=== PATIENT | male | born 1950 | race Caucasian/White ===

== ENCOUNTER 2022-08-09 15:42 | Emergency (ER) | payer MEDICARE, SELFPAY ==
[2022-08-09 15:43] VITALS: BP 143/69; PULSE 80; RESP 16; TEMP 36.8; O2SAT 95
--- NOTE | 2022-08-09 15:46 | ED.RN ---
Pt states he has at least 10 allergies, unsure of what they are.
--- NOTE | 2022-08-09 16:13 | EKG12_ITS ---
Test Reason : DIZZINESS Blood Pressure : / mmHG Vent. Rate : 079 BPM Atrial Rate : 079 BPM P-R Int : 178 ms QRS Dur : 076 ms QT Int : 372 ms P-R-T Axes : 039 027 055 degrees QTc Int : 426 ms Normal sinus rhythm Low voltage QRS Borderline ECG Confirmed by FIONA MENDIETA, JIA ([id number]), editorial writer DONNIE GOLDSTEIN ([id number]) on 08/11/2022 1:21:50 PM Referred By: Jakub Bowman Confirmed By:JIA JAIMES MD
[2022-08-09 16:30] VITALS: BMI 36.5
--- NOTE | 2022-08-09 16:32 | RAD_ITS ---
EXAM: XR CHEST, 1 VIEW CLINICAL INDICATION: Dizziness TECHNIQUE: Frontal view of the chest. COMPARISON: No relevant prior studies available. FINDINGS: LUNGS AND PLEURAL SPACES: Unremarkable. No consolidation or edema. No pneumothorax. No effusion. HEART: Unremarkable. Cardiac silhouette not enlarged. MEDIASTINUM: Central airways and mediastinal contour are unremarkable. BONES/JOINTS: Unremarkable. SOFT TISSUES: Unremarkable. RAD/Chest 1 View (Portable) IMPRESSION: No radiographic evidence of acute cardiopulmonary disease. Electronically Signed: Keenan Carney MD at 16:57 EDT ,
[2022-08-09 16:36] LABS: Absolute Lymphocyte Count 0.86 X10^3/uL (0.83-4.51); Absolute Neutrophil Count 3.8 X10^3/uL (2.0-7.7); Basophil# 0.02 X10^3/uL; Basophil% 0.4 % (0-1); Eosinophil# 0.12 X10^3/uL; Eosinophils% 2.3 % (0-5); Hematocrit 38.6 % (40-54); Hemoglobin 13.1 g/dL (13.0-16.5); Lymphocyte # 0.86 X10^3/ul (0.83-4.51); Lymphocyte % 16.5 % (19-41); Mean Corp Hgb Conc 33.9 g/dL (32-36); Mean Corpuscular Hgb 28.6 pg (27.0-32.0); Mean Corpuscular Volume 84.3 fL (80-94); Mean Platelet Vol. 8.6 fl (6.2-12.0); Monocyte# 0.44 X10^3/uL; Monocyte% 8.4 % (0-10); NRBC Flagged by Analyzer 0 % (0-5); Neutrophil # 3.77 X10^3/uL (2.7-7.7); Neutrophil % 72.2 % (47-70); Platelet Count 205 K/mm3 (150-450); RBC Distribution Width CV 13.9 % (11.6-14.6); RBC Distribution Width SD 42.5 fl (35.1-43.9); Red Blood Count 4.58 M/mm3 (4.6-6.2); White Blood Count 5.2 K/mm3 (4.4-11.0)
[2022-08-09 16:37] LABS: POSITIVE COUNT NO; POSITIVE DIFFERENTIAL NO; POSITIVE MORPHOLOGY NO
[2022-08-09 16:55] VITALS: BP 141/78; BP 142/75; BP 144/76; PULSE 79; PULSE 82; PULSE 84
[2022-08-09 16:57] LABS: D-Dimer Quantitative (DVT/PE) 0.56 FEU/ug/m (0.27-0.49)
[2022-08-09 17:08] LABS: Mucous, Urine 0 SEEN /hpf (<or=2+); Squamous Epithelial Cells - UA 0 SEEN /hpf (0-5)
[2022-08-09 17:10] LABS: Color, Urine Yellow (Yellow); Glucose, Dipstick 250 mg/dl (Normal); Ketone-Dipstick Negative (Negative); Leukocyte Esterase-Dipstick 100 /ul (Negative); Nitrite-Dipstick Negative (Negative); Occult Blood-Urine 10 /ul (Negative); Protein-Dipstick 15 mg/dl (Negative); Specific Gravity, Urine 1.025 (1.002-1.030); Urine Bilirubin Dipstick Negative (Negative); Urine Clarity Sl. Cloudy (Clear); Urine Urobilinogen Normal (Normal)
[2022-08-09 17:11] LABS: ALB/GLOB Ratio 1.2 RATIO (0.9-2.4); AST(SGOT) 13 U/L (15-37); Alanine Aminotransfer ALT/SGPT < 6 U/L (16-61); Albumin, Serum 3.7 g/dL (3.2-5.0); Alkaline Phosphatase 82 U/L (45-117); Anion Gap 6 (5-15); BUN 26 mg/dL (7-18); BUN/Creat Ratio 20.5 RATIO (10-20); Calcium,Total 9.2 mg/dL (8.5-10.1); Chloride 107 mmol/L (98-107); Creatinine, Serum 1.27 mg/dL (0.70-1.30); EST Glomerular Filtration Rate 59 mL/min (>60); Est Glom Filt Rate - Afr Amer 72 mL/min (>60); Estimated Creatinine Clearance 57.71 ml/min; Globulin 3.2 g/dL (2.2-4.2); Glucose 245 mg/dL (74-106); Potassium 4.2 mmol/L (3.5-5.1); Protein, Total 6.9 g/dL (6.4-8.2); Sodium Level 140 mmol/L (136-145); Troponin-I HS (w/2H Reflex) 7 pg/mL (3.0-78.0)
--- NOTE | 2022-08-09 17:24 | EDS_ITS ---
HPI History of Present Illness Chief Complaint: Dizziness Informant: patient and spouse/S.O. Onset/Context/Timing Onset: Today Context: Sudden Onset Timing: Continuous Quality: Tired, fatigued Location: Generalized Worsened by: Nothing Relieved by: Nothing Narrative Narrative: Patient presents with dizziness that began today. Patient states he was driving and he started to feel hot. Patient states he then became tired. Patient states he feels tired all over. Patient states his blood sugar at home was 300 prior to getting in his car. Patient admits to some nausea and urinary frequency. Patient denies any vomiting. Patient admits to some rhinorrhea and a mild headache. Patient also has a history of Parkinson's disease. Patient denies any fevers or chills. [facility] Medical History Diabetes Hyperlipemia Parkinson disease Allergy/AdvReac Type Severity Reaction Status Date / Time sulfamethoxazole Allergy Rash Verified 08/09/22 15:46 [From Bactrim] trimethoprim [From Bactrim] Allergy Rash Verified 08/09/22 15:46 Social History Smoking Status: Never smoker ROS [facility] ED Constitutional Constitutional ED: Denies chills or fever(s) Eyes Eyes: Denies blurry vision or change in vision ENT ENT ED: Reports rhinorrhea; Denies sore throat Cardiovascular Cardiovascular: Denies chest pain or palpitations Respiratory/Chest Respiratory/Chest: Denies cough or dyspnea Gastrointestinal Gastrointestinal: Reports nausea; Denies vomiting Genitourinary Genitourinary ED: Reports urinary frequency; Denies dysuria or hematuria Musculoskeletal Musculoskeletal: Reports back pain; Denies neck pain Integumentary Denies abscess or rash Neurologic Neurologic: Reports headache(s) and weakness Allergic/Immunologic Allergic/Immunologic ED: Denies mouth swelling or urticaria EXAM Physical Exam Const Vital Signs: 08/09/22 15:43 08/09/22 16:15 08/09/22 16:55 Temperature 98.2 F Temperature Source Temporal Pulse Rate 80 Pulse Rate [Lying] 84 Pulse Rate [Sitting (for 1 minute prior to obtaining)] 79 Pulse Rate [Standing (for 1 minute prior to obtaining)] 82 Respiratory Rate 16 Respiratory Effort Normal Non-Labored Respiratory Pattern Normal Blood Pressure 143/69 H Blood Pressure [Lying] 142/75 H Blood Pressure [Sitting (for 1 minute prior to obtaining)] 144/76 H Blood Pressure [Standing (for 1 minute prior to obtaining)] 141/78 H Blood Pressure Mean 93 Blood Pressure Mean [Lying] 97 Blood Pressure Mean [Sitting (for 1 minute prior to obtaining)] 98 Blood Pressure Mean [Standing (for 1 minute prior to obtaining)] 99 Pulse Ox 95 Oxygen Delivery Method Room Air 08/09/22 17:43 08/09/22 19:11 Temperature Temperature Source Pulse Rate 75 77 Pulse Rate [Lying] Pulse Rate [Sitting (for 1 minute prior to obtaining)] Pulse Rate [Standing (for 1 minute prior to obtaining)] Respiratory Rate 16 16 Respiratory Effort Respiratory Pattern Blood Pressure 139/73 H 132/71 H Blood Pressure [Lying] Blood Pressure [Sitting (for 1 minute prior to obtaining)] Blood Pressure [Standing (for 1 minute prior to obtaining)] Blood Pressure Mean 95 91 Blood Pressure Mean [Lying] Blood Pressure Mean [Sitting (for 1 minute prior to obtaining)] Blood Pressure Mean [Standing (for 1 minute prior to obtaining)] Pulse Ox 96 95 Oxygen Delivery Method Room Air Room Air Positive well nourished, well developed and obese General Appearance ED: well developed and NAD Nutritional Appearance: obese HEENT Reports moist mucous membranes Neck supple and no JVD Resp normal respiratory effort and clear to auscultation bilaterally Cardio regular rate and regular rhythm GI normal to inspection, nondistended, normoactive bowel sounds and non-tender Palpation: soft Extremity Extremity Narrative: There is some mild erythema over the anterior lower legs, slightly worse on the right. General Extremety ED: Negative for edema or tenderness General Extremity: Negative for edema Neuro oriented x3, CN's II-XII intact bilaterally and no sensory deficits noted Sensorium / Orientation: alert Motor Exam: strength 5/5 throughout Psych mental status grossly normal MDM MDM MDM Narrative Medical decision making narrative: Differential diagnosis includes cardiac dysrhythmia, cardiac ischemia, pulmonary embolism, electrolyte abnormality, dehydration, diabetic ketoacidosis, hyperosmolar hyperglycemic state, and urinary tract infection. EKG will be obtained to assess for cardiac dysrhythmia and cardiac ischemia. Chest x-ray will be obtained to assess for pneumonia. CBC will be obtained to assess for leukocytosis and anemia. D-dimer will be obtained to assess for pulmonary embolism. Comprehensive metabolic profile will be obtained to assess for electrolyte abnormality, renal function, and hepatic function. High-sensitivity troponin will be obtained to assess for cardiac ischemia. 2-hour repeat high- sensitivity troponin will be obtained to assess for ongoing cardiac ischemia. Urinalysis will be obtained to assess for urinary tract infection and hematuria. Serum acetone will be obtained to assess for diabetic ketoacidosis. Lab Data Attestation: I reviewed the patient's lab results. Lab results narrative: CBC was reviewed and was within normal limits. Comprehensive metabolic profile was reviewed. Glucose was 245. The remainder was essentially within normal limits. High-sensitivity troponin was reviewed and was normal at 7. D-dimer was reviewed and was normal for her age at 0.56. Urinalysis was reviewed and there is no evidence of urinary tract infection or hematuria. Serum acetone was reviewed and was negative. 2-hour repeat high-sensitivity troponin was reviewed and was normal at 9. Labs: Laboratory Results - last 24 hr 08/09/22 08/09/22 08/09/22 16:25 16:25 16:25 WBC 5.2 RBC 4.58 L Hgb 13.1 Hct 38.6 L MCV 84.3 MCH 28.6 MCHC 33.9 RDW Std Deviation 42.5 RDW Coeff of Yoana 13.9 Plt Count 205 MPV 8.6 Immature Gran % (Auto) 0.200 Neut % (Auto) 72.2 H Lymph % (Auto) 16.5 L [place] % (Auto) 8.4 Eos % (Auto) 2.3 Baso % (Auto) 0.4 Absolute Neuts (auto) 3.8 Absolute Lymphs (auto) 0.86 Nucleated RBC % 0 D-Dimer Quant (PE/DVT) 0.56 H* Sodium 140 Potassium 4.2 Chloride 107 Carbon Dioxide 27.0 Anion Gap 6 BUN 26 H Creatinine 1.27 Estim Creat Clear Calc 57.71 Est GFR (MDRD) Af Amer 72 Est GFR (MDRD) Non-Af 59 L BUN/Creatinine Ratio 20.5 H Glucose 245 H Calcium 9.2 Total Bilirubin 0.50 AST 13 L ALT < 6 L Alkaline Phosphatase 82 Troponin I High Sens 7 Total Protein 6.9 Albumin 3.7 Globulin 3.2 Albumin/Globulin Ratio 1.2 Urine Color Urine Clarity Urine pH Ur Specific [place] Urine Protein Urine Glucose (UA) Urine Ketones Urine Occult Blood Urine Nitrite Urine Bilirubin Urine Urobilinogen Ur Leukocyte Esterase Urine RBC Urine WBC Ur Squamous Epith Cells Urine Bacteria Urine Mucus Acetone Level 08/09/22 08/09/22 08/09/22 16:25 17:05 18:37 WBC RBC Hgb Hct MCV MCH MCHC RDW Std Deviation RDW Coeff of [place] Plt Count MPV Immature Gran % (Auto) Neut % (Auto) Lymph % (Auto) [place] % (Auto) Eos % (Auto) Baso % (Auto) Absolute Neuts (auto) Absolute Lymphs (auto) Nucleated RBC % D-Dimer Quant (PE/DVT) Sodium Potassium Chloride Carbon Dioxide Anion Gap BUN Creatinine Estim Creat Clear Calc Est GFR (MDRD) Af Amer Est GFR (MDRD) Non-Af BUN/Creatinine Ratio Glucose Calcium Total Bilirubin AST ALT Alkaline Phosphatase Troponin I High Sens 9 Total Protein Albumin Globulin Albumin/Globulin Ratio Urine Color Yellow Urine Clarity Sl. Cloudy Urine pH 5.0 Ur Specific [place] 1.025 Urine Protein 15 H Urine Glucose (UA) 250 H Urine Ketones Negative Urine Occult Blood 10 H Urine Nitrite Negative Urine Bilirubin Negative Urine Urobilinogen Normal Ur Leukocyte Esterase 100 H Urine RBC 0-5 SEEN Urine WBC 0-5 SEEN Ur Squamous Epith Cells 0 SEEN Urine Bacteria RARE Urine Mucus 0 SEEN Acetone Level NEGATIVE Radiography Diagnostic Testing: Clinical Impression(s) from Imaging Studies Chest X-Ray 08/09/22 16:32 IMPRESSION: No radiographic evidence of acute cardiopulmonary disease. Electronically Signed: Keenan Carney MD at 16:57 EDT Reading Location ID and State: [facility] / [place] , Service support , Portable 1 view chest x-ray was obtained. On my independent interpretation, lung miller are clear. There is normal cardiac silhouette. Bony thorax is normal. There is no acute process noted. Radiologist also interpreted the x- ray and agrees. EKG Initial EKG: Attestation: I personally reviewed and interpreted this EKG as follows: Interpretation: Sinus Rhythm (79) and No Acute Injury Pattern Comments: EKG was obtained. On my independent interpretation, it showed a normal sinus rhythm with a rate of 79. MO interval, QRS interval, and QTc intervals were all normal. [place] was normal. There are no acute ST or T wave changes. Prior EKG tracings: not available for review Prior: No Prior Treatment and Re-Evaluation :: Patient was advised of his findings. Patient was ambulated here in the emergency department. Patient had no further dizziness and was able to ambulate with his cane without any difficulty. Patient will be discharged home. Patient was instructed to follow-up with his primary care physician in 5 to 7 days. Patient was instructed to return if worse in any way. Patient understood and was agreeable with the plan. All questions were answered. Discharge Plan Triage Chief Complaint: Dizziness ED Provider: Jakub Bowman Dx/Rx/DC Orders Clinical Impression: Dizziness, nonspecific Instructions: ED Dizziness, Uncertain Cause Primary Care Provider: Care Physician,No Primary Referrals: Melita Velasquez MD [Med Staff - [employer]] - 5-7 Days Care Physician,No Primary [Primary Care Provider] - Disposition Disposition: Home, Self Care
[2022-08-09 17:25] LABS: White Blood Cells 0-5 SEEN /hpf (0-5)
[2022-08-09 17:26] LABS: Red Blood Cells-Urine 0-5 SEEN /hpf (0-5)
[2022-08-09 17:27] LABS: Bacteria RARE /hpf (None Seen)
[2022-08-09 17:43] VITALS: BP 139/73; PULSE 75; RESP 16; O2SAT 96
[2022-08-09 18:33] LABS: Reflex Troponin-HS? (from REC) Y
[2022-08-09 18:59] LABS: Troponin-I HS 9 pg/mL (3.0-78.0)
[2022-08-09 19:11] VITALS: BP 132/71; PULSE 77; RESP 16; O2SAT 95
[2022-08-09 19:21] VITALS: O2SAT 96
[2022-08-09 19:59] VITALS: BP 135/80; PULSE 82; RESP 15; O2SAT 96
== END 2022-08-09 20:08 | disposition home or self-care (01) ==
PROVIDERS: Emergency Provider Emergency Medicine; Referring Provider Emergency Medicine; Visit Provider Emergency Medicine
DX: R42 Dizziness and giddiness (principal); E66.9 Obesity, unspecified
CPT/HCPCS: 71045; 80053; 81001; 82009; 84484; 85025; 85379; 93005; 96360; 99285; J7040; A4216

== ENCOUNTER 2022-10-28 07:53 | Outpatient (RCR) | payer MEDICARE, SELFPAY ==
[2022-10-28 08:05] VITALS: BP 167/90; PULSE 104; RESP 16; TEMP 36.1; BMI 36.1
--- NOTE | 2022-10-28 09:29 | PCM.WC.HP ---
History of Present Illness Date of Service: 10/28/22 Chief Complaint: Venous stasis ulceration of the right pretibial area History of Wound: This is an obese 72-year-old diabetic male who presented with a venous stasis ulceration on the right pretibial area. The ulceration has been present for approximately 2 to 3 weeks. However, the patient has had similar occurrences in the past. He has had previous episodes whereby blisters have spontaneously occurred on his distal lower extremities, subsequently erupting into small open wounds. The patient suffers from Parkinson's disease. He is obese, with a BMI of 36.1. His activity is very limited based upon his Parkinson's disease and prior lower extremity fractures. 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 He sleeps in a recliner, with his lower extremities in a dependent position. He ambulates in very limited fashion using a cane. He denies a history of thrombophlebitis. [facility] Medical History Dependent edema Diabetes Hyperlipemia Hyperpigmentation Inactivity Left leg swelling Leg edema, left Leg edema, right Lipodermatosclerosis Parkinson disease Peripheral neuropathy Right leg swelling Venous hypertension, chronic, with ulcer and inflammation Home Medications betamethasone valerate 0.1 % topical cream 1 applic topical BID PRN 09/01/22 [History Last Taken Unknown] calcium carbonate 600 mg-vitamin D3 10 mcg (400 unit) chewable tablet (Calcium 600 with Vitamin D3) tab PO 09/01/22 [History Last Taken Unknown] carbidopa 25 mg-levodopa 100 mg tablet 1 tab PO TID 09/01/22 [History Last Taken Unknown] carvedilol 6.25 mg tablet 6.25 mg PO BID 09/01/22 [History Last Taken Unknown] clotrimazole 1 % topical ointment 1 applic topical BID 09/01/22 [History Last Taken Unknown] donepezil 5 mg tablet mg PO 09/01/22 [History Last Taken Unknown] flash glucose sensor (FreeStyle Aliya 2 Sensor kit) 09/01/22 [History Last Taken Unknown] flash glucose sensor (FreeStyle Aliya 2 Sensor kit) 09/01/22 [History Last Taken Unknown] furosemide 20 mg tablet 20 mg PO BID 09/01/22 [History Last Taken Unknown] icosapent ethyl 1 gram capsule (Vascepa) 2 g PO BID 09/01/22 [History Last Taken Unknown] lanolin-mineral oil lotion (Eucerin Original lotion) 1 applic topical QD-BID PRN 09/01/22 [History Last Taken Unknown] loratadine 10 mg tablet 10 mg PO DAILY 09/01/22 [History Last Taken Unknown] metformin 500 mg tablet,extended release 24 hr 500 mg PO BID 09/01/22 [History Last Taken Unknown] mirabegron 50 mg tablet,extended release 24 hr (Myrbetriq) 50 mg PO DAILY 09/01/22 [History Last Taken Unknown] nitroglycerin 0.4 mg sublingual tablet 0.4 mg sublingual Q5M PRN 09/01/22 [History Last Taken Unknown] polyethylene glycol 3350 17 gram/dose oral powder (Miralax) 4 g PO DAILY PRN 09/01/22 [History Last Taken Unknown] pramipexole 0.75 mg tablet 0.75 mg PO QHS 09/01/22 [History Last Taken Unknown] psyllium husk 0.52 gram capsule (Fiber-Caps (psyllium husk)) 0.52 g PO DAILY 09/01/22 [History Last Taken Unknown] rosuvastatin 20 mg tablet 20 mg PO DAILY 09/01/22 [History Last Taken Unknown] venlafaxine 75 mg capsule,extended release 24 hr 75 mg PO BID 09/01/22 [History Last Taken Unknown] insulin lispro protamine-lispro 100 unit/mL (50-50) subcutaneous susp (Humalog Mix 50-50 Insuln U-100) 33 unit (0.33 mL) subcut TIDWMEAL #29.7 mL 09/15/22 [Rx Last Taken Unknown] Allergy/AdvReac Type Severity Reaction Status Date / Time sulfamethoxazole Allergy Rash Verified 10/23/22 11:43 [From Bactrim] trimethoprim [From Bactrim] Allergy Rash Verified 10/23/22 11:43 Surgical History History of right inguinal hernia repair History of total right knee replacement Social History Smoking Status: Never smoker Vital Signs Vital Signs Vital Signs: 10/28/22 08:05 Temperature 96.9 F L Temperature Source Temporal Pulse Rate 104 H Respiratory Rate 16 Blood Pressure 167/90 H Blood Pressure Mean 115 Blood Pressure Source Monitor Blood Pressure Position Sitting Blood Pressure Location Left Arm Weight Weight: 266 lb Body Mass Index (BMI) 36.1 Physical Exam Const alert, oriented x3, no apparent distress and well nourished Constitutional Narrative: The patient is obese, with a BMI of 36.1. General Appearance: cooperative, comfortable, well kempt and well developed Orientation / Consciousness: awake, oriented to person, oriented to place and oriented to time Exam Limitations: no limitations HEENT normocephalic and head/scalp atraumatic Head and Scalp: normal to inspection, normocephalic and atraumatic Face and Sinus: normal facial exam External Ear: external ears normal Eyes PERRL and EOMs intact bilaterally General Eye: normal appearance of both eyes Resp normal respiratory effort, normal air movement, no retractions and no use of accessory muscles Effort and Inspection: able to speak in complete sentences and symmetric chest movement Extremity no calf tenderness Extremity Narrative: Strong multiphasic pulses are noted in the lower extremities bilaterally at ankle level. General Extremity: Negative for clubbing or cyanosis Skin Wound Narrative: Hyperpigmentation and lipodermatosclerosis are noted in the gaiter areas bilaterally. Slight swelling and edema are noted in the lower extremities bilaterally. A small ulceration is noted on the right pretibial area. Dimensions are documented elsewhere. There is no sign of infection or cellulitis. There is evidence of epithelialization at the site. Neuro oriented x3, CN's II-XII intact bilaterally, moves all extremities and no focal motor deficits Sensorium / Orientation: awake, alert, oriented to person, oriented to place and oriented to time Psych Appearance: grossly normal and appropriate Attitude: calm Activity / Motor Behavior: appropriate eye contact Speech: normal speech Mood & Affect: euthymic mood Thought Process: normal thought process Thought Content: normal thought content Attention / Concentration: attention grossly intact Debridement Note Debridement Note No debridement was completed: No debridement was completed today Post-Debridement Measurements and Additional Note: Post-Debridement Measurements/Treatment SANTIAGO - Nurse 1 - General Ulcer Assessment Start: 10/28/22 08:05 Freq: Status: Active Protocol: ALICE Activity Type Activity Date Activity User E-sign Co-sign Detail Recorded Client Recorded Date Recorded By Document 10/28/22 08:05 [id number] 10/28/22 08:27 KYRA 10/28/22 08:05 - Today's Visit Information Type of service Initial Visit Arrival Mode Ambulatory,Cane Patient Identification Verified (Name & Yes ) Patient Requires Transmission-Based No Precautions Safety Precautions NA Height and Weight Height 6 ft Weight 266 lb Weight in Pounds 266.0 lbs Body Mass Index (BMI) 36.1 BMI Classification Obese BSA - Farrah 2.40 Vital Signs Temperature (97.8 F-99.1 F) 96.9 F L Temperature Source Temporal Pulse Rate (60-100) 104 H Pulse Location Monitor Respiratory Rate (12-18) 16 Respiratory rate source Observation Blood Pressure (90/60-120/80) 167/90 H Blood Pressure Mean 115 Source Monitor Position Sitting Blood Pressure Location Left Arm History Since Last Visit- (Skip if this is Patient's initial visit) Left Footwear Regular Shoe Right Footwear Regular Shoe Pain Scale: 0-10 Numeric Is Patient Pain Free? Yes Lower Extremity Assessment/ Foot Assessment/ Toe Nail Assessment Right -Posterior Tibial Palpable Yes -Posterior Tibial Doppler Multiphasic -Dorsalis Pedis Palpable Yes -Dorsalis Pedis Doppler Multiphasic -Extremity Color Hyperpigmented Left -Posterior Tibial Palpable Yes -Posterior Tibial Doppler Multiphasic -Dorsalis Pedis Palpable Yes -Dorsalis Pedis Doppler Multiphasic -Extremity Color Hyperpigmented Communication Assessment Preferred language Telugu Mold Release Worker Required No Able to Read Yes Able to Write Yes Communication Tools None Caregiver Communication Skills No Impairment Impairment Right Hearing Abillity Hard of Hearing Left Hearing Abillity Hard of Hearing Visual Assistive Devices Glasses Teaching Assessment Preferences Verbal,Written, Audio/Visual, Demonstration Barriers to Learning None Readiness To Learn Good Willingness to Engage in Self Management Med Activies Readiness to Engage in Self Management Med Activities Anxiety Level Anxious Cooperation Cooperative Interest in Health Problem Asks Questions Education Importance Acknowledges Need Does Patient Smoke tobacco or other No substances Smoking Status Never smoker Is Patient Diabetic Yes Functional Assessment Recent Decline in Ability to Perform Ambulation Culture/Episcopal/Clerical Adjudicator Cultural/Episcopal Needs that may affect No Treatment Plan Would you allow our hospital asset protection officer to No meet you for the purpose of spiritual/ emotional support? Clerical Adjudicator to contact place of jain No Teaching: Wound Center [facility] Orientation/ Contacting Physician -Person Taught Patient,Family -Teaching Method Discussion, Demonstration -Response to teaching Return demonstration, Verbalize understanding WC - Nurse 1 - General Ulcer Measurement Start: 10/28/22 08:05 Freq: Status: Active Protocol: Activity Type Activity Date Activity User E-sign Co-sign Detail Recorded Client Recorded Date Recorded By Document 10/28/22 08:05 KYRA [id number] 10/28/22 08:27 KYRA 10/28/22 08:05 Wound Center Nurse 1 1-right vigil -Combined with other wound No -Current Size (cm) - Length 2.0 -Current Size (cm) - Width 1.3 -Current Size (cm) - Depth 0.1 -Total Square Cm 2.60 -Photo Taken Yes -Epithelialization Small 1-33% -Tunneling No -Undermining/Tunneling No -Circular Undermining No -Classification - Valerio Grading ( Grade 2 Diabetic Ulcer) -Exudate Amt Small -Exudate Type Serosanguineous -Wound Margin Flat & Intact -Granulation Amt None Present (0 %) -Slough/Fibrin Yes -Necrosis Amt Medium (34-66%) -Necrotic Tissue Type Adherent Slough -Structure Exposed N/A -Texture (Coretta-wound Skin Appearance) Assessed, Localized Edema -Moisture (Coretta-wound Skin Appearance) Assessed, Weeping -Color (Coretta-wound Skin Appearance) Assessed -Temperature (Coretta-wound Skin No Abnormality Appearance) (Pt Warm) -Tenderness on Palpation (Coretta-wound No Skin Appearance) -Ulcer Cleansing Rinsed/ Irrigated with Saline -Foul Odor after Cleansing No -Anesthetic Used 4% Lidocaine Solution Lower Limb Edema Present Yes Right Calf (cm) 41.5 Right Ankle (cm) 23.6 Left Calf (cm) 43.7 Left Ankle (cm) 23.8 Assessment/Plan Assessment/Plan (1) Venous stasis ulcer: CODE(S): I83.009 - Varicose veins of unspecified lower extremity with ulcer of unspecified site; L97.909 - Non-pressure chronic ulcer of unspecified part of unspecified lower leg with unspecified severity QUALIFIERS: Venous stasis ulcer site: calf Varicose vein presence: without varicose veins Laterality: right Non-pressure ulcer stage: with fat layer exposed Qualified Code(s): I87.2 - Venous insufficiency (chronic) (peripheral); L97.212 - Non-pressure chronic ulcer of right calf with fat layer exposed (2) Venous hypertension, chronic, with ulcer and inflammation: CODE(S): I87.339 - Chronic venous hypertension (idiopathic) with ulcer and inflammation of unspecified lower extremity QUALIFIERS: Laterality: right Qualified Code(s): I87.331 - Chronic venous hypertension (idiopathic) with ulcer and inflammation of right lower extremity (3) Lipodermatosclerosis: CODE(S): I83.10 - Varicose veins of unspecified lower extremity with inflammation QUALIFIERS: Laterality: bilateral Qualified Code(s): I83.11 - Varicose veins of right lower extremity with inflammation; I83.12 - Varicose veins of left lower extremity with inflammation (4) Right leg swelling: CODE(S): M79.89 - Other specified soft tissue disorders (5) Left leg swelling: CODE(S): M79.89 - Other specified soft tissue disorders (6) Leg edema, right: CODE(S): R60.0 - Localized edema (7) Leg edema, left: CODE(S): R60.0 - Localized edema (8) Dependent edema: CODE(S): R60.9 - Edema, unspecified (9) Hyperpigmentation: CODE(S): L81.9 - Disorder of pigmentation, unspecified (10) Parkinson disease: CODE(S): G20 - Parkinson's disease (11) Urinary incontinence: CODE(S): R32 - Unspecified urinary incontinence QUALIFIERS: Urinary Incontinence type: unspecified incontinence Qualified Code(s): R32 - Unspecified urinary incontinence (12) Obesity: CODE(S): E66.9 - Obesity, unspecified QUALIFIERS: Obesity type: due to excess calories Obesity classification: adult class 2 (BMI 35 - 39.9) Serious obesity comorbidity presence: with serious comorbidity Body mass index: BMI 36.0-36.9 Qualified Code(s): E66.01 - Morbid (severe) obesity due to excess calories; Z68.36 - Body mass index [BMI] 36.0-36.9, adult (13) Diabetes: CODE(S): E11.9 - Type 2 diabetes mellitus without complications QUALIFIERS: Diabetes mellitus type: type 2 Diabetes mellitus mcc insulin use: with rat exterminator use Diabetes mellitus complication status: with hyperglycemia Qualified Code(s): E11.65 - Type 2 diabetes mellitus with hyperglycemia; Z79.4 - correction (current) use of insulin (14) History of total right knee replacement: CODE(S): Z96.651 - Presence of right artificial knee joint (15) Inactivity: CODE(S): Z72.3 - Lack of physical exercise (16) Peripheral neuropathy: CODE(S): G62.9 - Polyneuropathy, unspecified (17) History of right inguinal hernia repair: CODE(S): Z98.890 - Other specified postprocedural states; Z87.19 - Personal history of other diseases of the digestive system PLAN: Plan This is a 72-year-old diabetic male who presented with a small open ulceration on the right pretibial area, which had been present for several weeks. The patient has a history of similar such ulcerations, which have occurred spontaneously. The patient is obese and diabetic. He is sedentary, due to limitations on his activity as a result of prior lower extremity fractures and Parkinson's disease. His ambulatory capacity is limited, and he requires the use of a cane for ambulation. He has been sleeping in a recliner at night. We are to implement conservative treatment measures relative to the patient's management. These have been discussed with the patient and his in detail. He has been discouraged from sleeping in a recliner, with his lower extremities in a dependent position. He has been encouraged to either sleep on a flat mattress, or to sleep in his recliner with legs elevated and head down. Leg elevation has been encouraged as much as possible, during both nighttime and daytime hours. Activity has been encouraged, though enhancement of activity level may be limited by his Parkinson's disease and deconditioning. Weight loss has been recommended. Optimization of his nutrition and glycemic control have also been advised. We are to implement the use of collagen hydrogel topically to the small ulceration on the right pretibial area. Compression is to be implemented by means of a 3M 2 layer compression wrap, which will be changed twice weekly. The patient is to return in 1 week for reassessment. Total time: 52 minutes
== END 2022-10-30 23:59 | disposition home or self-care (01) ==
LOC: WC 07:53
PROVIDERS: Referring Provider Nurse Practitioner Family; Visit Provider Surgery
DX: I83.212 Varicose veins of right lower extremity with both ulcer of calf and inflammation (principal); E11.622 Type 2 diabetes mellitus with other skin ulcer; G20 Parkinson's disease; L97.212 Non-pressure chronic ulcer of right calf with fat layer exposed; E11.65 Type 2 diabetes mellitus with hyperglycemia; E11.42 Type 2 diabetes mellitus with diabetic polyneuropathy; E11.59 Type 2 diabetes mellitus with other circulatory complications; E66.01 Morbid (severe) obesity due to excess calories; Z79.4 Long term (current) use of insulin; R60.0 Localized edema; Z68.36 Body mass index [BMI] 36.0-36.9, adult; R32 Unspecified urinary incontinence; E78.5 Hyperlipidemia, unspecified; Z79.899 Other long term (current) drug therapy; Z79.84 Long term (current) use of oral hypoglycemic drugs
CPT/HCPCS: 29581; 99213; G0463

== ENCOUNTER 2022-11-04 08:45 | Outpatient (RCR) | payer MEDICARE, SELFPAY ==
[2022-10-31 00:43] VITALS: BP 167/90; PULSE 104; RESP 16; TEMP 36.1; BMI 36.1
[2022-10-31 11:57] VITALS: BP 169/82; PULSE 84; RESP 20; TEMP 36.2; BMI 36.1
[2022-11-04 08:39] VITALS: BP 153/76; PULSE 84; RESP 16; TEMP 36.2; BMI 36.1
--- NOTE | 2022-11-04 09:02 | PCM.WC.HP ---
History of Present Illness Date of Service: 11/04/22 Chief Complaint: Venous stasis ulceration of the right pretibial area History of Wound: This is an obese 72-year-old diabetic male who presented with a venous stasis ulceration on the right pretibial area. The ulceration has been present for approximately 2 to 3 weeks. However, the patient has had similar occurrences in the past. He has had previous episodes whereby blisters have spontaneously occurred on his distal lower extremities, subsequently erupting into small open wounds. The patient suffers from Parkinson's disease. He is obese, with a BMI of 36.1. His activity is very limited based upon his Parkinson's disease and prior lower extremity fractures. 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 He sleeps in a recliner, with his lower extremities in a dependent position. He ambulates in very limited fashion using a cane. He denies a history of thrombophlebitis. [facility] Medical History Dependent edema Diabetes Hyperlipemia Hyperpigmentation Inactivity Left leg swelling Leg edema, left Leg edema, right Lipodermatosclerosis Parkinson disease Peripheral neuropathy Right leg swelling Venous hypertension, chronic, with ulcer and inflammation Home Medications betamethasone valerate 0.1 % topical cream 1 applic topical BID PRN 09/01/22 [History Last Taken Unknown] calcium carbonate 600 mg-vitamin D3 10 mcg (400 unit) chewable tablet (Calcium 600 with Vitamin D3) tab PO 09/01/22 [History Last Taken Unknown] carbidopa 25 mg-levodopa 100 mg tablet 1 tab PO TID 09/01/22 [History Last Taken Unknown] carvedilol 6.25 mg tablet 6.25 mg PO BID 09/01/22 [History Last Taken Unknown] clotrimazole 1 % topical ointment 1 applic topical BID 09/01/22 [History Last Taken Unknown] donepezil 5 mg tablet mg PO 09/01/22 [History Last Taken Unknown] flash glucose sensor (FreeStyle Aliya 2 Sensor kit) 09/01/22 [History Last Taken Unknown] flash glucose sensor (FreeStyle Aliya 2 Sensor kit) 09/01/22 [History Last Taken Unknown] furosemide 20 mg tablet 20 mg PO BID 09/01/22 [History Last Taken Unknown] icosapent ethyl 1 gram capsule (Vascepa) 2 g PO BID 09/01/22 [History Last Taken Unknown] lanolin-mineral oil lotion (Eucerin Original lotion) 1 applic topical QD-BID PRN 09/01/22 [History Last Taken Unknown] loratadine 10 mg tablet 10 mg PO DAILY 09/01/22 [History Last Taken Unknown] metformin 500 mg tablet,extended release 24 hr 500 mg PO BID 09/01/22 [History Last Taken Unknown] mirabegron 50 mg tablet,extended release 24 hr (Myrbetriq) 50 mg PO DAILY 09/01/22 [History Last Taken Unknown] nitroglycerin 0.4 mg sublingual tablet 0.4 mg sublingual Q5M PRN 09/01/22 [History Last Taken Unknown] polyethylene glycol 3350 17 gram/dose oral powder (Miralax) 4 g PO DAILY PRN 09/01/22 [History Last Taken Unknown] pramipexole 0.75 mg tablet 0.75 mg PO QHS 09/01/22 [History Last Taken Unknown] psyllium husk 0.52 gram capsule (Fiber-Caps (psyllium husk)) 0.52 g PO DAILY 09/01/22 [History Last Taken Unknown] rosuvastatin 20 mg tablet 20 mg PO DAILY 09/01/22 [History Last Taken Unknown] venlafaxine 75 mg capsule,extended release 24 hr 75 mg PO BID 09/01/22 [History Last Taken Unknown] insulin lispro protamine-lispro 100 unit/mL (50-50) subcutaneous susp (Humalog Mix 50-50 Insuln U-100) 33 unit (0.33 mL) subcut TIDWMEAL #29.7 mL 09/15/22 [Rx Last Taken Unknown] Allergy/AdvReac Type Severity Reaction Status Date / Time sulfamethoxazole Allergy Rash Verified 10/23/22 11:43 [From Bactrim] trimethoprim [From Bactrim] Allergy Rash Verified 10/23/22 11:43 Surgical History History of right inguinal hernia repair History of total right knee replacement Social History Smoking Status: Never smoker Vital Signs Vital Signs Vital Signs: 11/04/22 08:39 Temperature 97.2 F L Temperature Source Temporal Pulse Rate 84 Respiratory Rate 16 Blood Pressure 153/76 H Blood Pressure Mean 101 Blood Pressure Source Monitor Blood Pressure Position Sitting Blood Pressure Location Left Arm Oxygen Delivery Method Room Air Weight Weight: 266 lb Body Mass Index (BMI) 36.1 Physical Exam Const alert, oriented x3, no apparent distress and well nourished Constitutional Narrative: The patient is obese, with a BMI of 36.1. General Appearance: cooperative, comfortable, well kempt and well developed Orientation / Consciousness: awake, oriented to person, oriented to place and oriented to time Exam Limitations: no limitations HEENT normocephalic and head/scalp atraumatic Head and Scalp: normal to inspection, normocephalic and atraumatic Face and Sinus: normal facial exam External Ear: external ears normal Eyes PERRL and EOMs intact bilaterally General Eye: normal appearance of both eyes Resp normal respiratory effort, normal air movement, no retractions and no use of accessory muscles Effort and Inspection: able to speak in complete sentences and symmetric chest movement Extremity no calf tenderness Extremity Narrative: Strong multiphasic pulses are noted in the lower extremities bilaterally at ankle level. General Extremity: Negative for clubbing or cyanosis Skin Wound Narrative: Hyperpigmentation and lipodermatosclerosis are noted in the gaiter areas bilaterally. The swelling and edema in the patient's lower extremities appears to be minimal and well controlled. The ulceration in the right pretibial area is now completely healed and epithelialized. There is no sign of infection or cellulitis. Neuro oriented x3, CN's II-XII intact bilaterally, moves all extremities and no focal motor deficits Sensorium / Orientation: awake, alert, oriented to person, oriented to place and oriented to time Psych Appearance: grossly normal and appropriate Attitude: calm Activity / Motor Behavior: appropriate eye contact Speech: normal speech Mood & Affect: euthymic mood Thought Process: normal thought process Thought Content: normal thought content Attention / Concentration: attention grossly intact Debridement Note Debridement Note No debridement was completed: No debridement was completed today (There are no open wounds or ulcerations.) Post-Debridement Measurements and Additional Note: Post-Debridement Measurements/Treatment S[place]IAGO - Nurse 1 - General Ulcer Assessment Start: 10/31/22 11:56 Freq: Status: Active Protocol: ALICE Activity Type Activity Date Activity User E-sign Co-sign Detail Recorded Client Recorded Date Recorded By Document 10/31/22 11:57 DL [id number] 10/31/22 12:19 DL Document 11/04/22 08:39 JF [id number] 11/04/22 08:43 JF 10/31/22 11/04/22 11:57 08:39 - Today's Visit Information Type of service Nurse-only Follow-up Visit Visit (Physician/[facility] [employer] ) Arrival Mode Ambulatory Ambulatory Transfer Assistance None None Accompanied by Patient Identification Verified (Name & Yes Yes ) Patient Requires Transmission-Based No No Precautions Height and Weight Body Mass Index (BMI) 36.1 36.1 BMI Classification Obese Obese Vital Signs Temperature (97.8 F-99.1 F) 97.2 F L 97.2 F L Temperature Source Temporal Temporal Pulse Rate (60-100) 84 84 Pulse Location Monitor Monitor Respiratory Rate (12-18) 20 H 16 Respiratory rate source Observation Observation Oxygen Delivery Method Room Air Blood Pressure (90/60-120/80) 169/82 H 153/76 H Blood Pressure Mean 111 101 Source Monitor Monitor Position Sitting Blood Pressure Location Left Arm History Since Last Visit- (Skip if this is Patient's initial visit) Have you changed medications since your No No last visit? Any new allergies or adverse reactions No No Had a fall/change in ADL's that may No No increase risk of falls Signs or symptoms of abuse and/or No No neglect since last visit Have you been in the hospital since your No No last visit? Has dressing in place as prescribed Yes Yes Has compression in place as prescribed Yes Yes Has offloadiing in place as prescribed N/A N/A Experienced any changes in pain level or No No management Left Footwear Regular Shoe Right Footwear Regular Shoe Pain Scale: 0-10 Numeric Is Patient Pain Free? Yes Yes - Nurse 1 - General Ulcer Measurement Start: 10/31/22 11:56 Freq: Status: Active Protocol: Activity Type Activity Date Activity User E-sign Co-sign Detail Recorded Client Recorded Date Recorded By Document 10/31/22 11:57 DL [id number] 10/31/22 12:19 DL Document 11/04/22 08:39 [id number] 11/04/22 08:43 JF 10/31/22 11/04/22 11:57 08:39 Wound Center Nurse 1 1-right vigil -Combined with other wound No -Current Size (cm) - Length 0.1 0.1 -Current Size (cm) - Width 0.1 0.1 -Current Size (cm) - Depth 0.1 0.1 -Total Square Cm 0.01 0.01 -Date of Last Picture (Recall this 11/04/22 field) -Photo Taken Yes -Epithelialization Medium 34-66% Large 67-100% -Tunneling No No -Undermining/Tunneling No -Circular Undermining No -Exudate Amt None Present None Present -Wound Margin Indistinct, Non Distinct, -Visible Outline Attached -Granulation Amt Large (67-100%) None Present (0 %) -Granulation Quality [place] -Slough/Fibrin Yes -Necrosis Amt None Present (0 Small (1-33%) %) -Necrotic Tissue Type Eschar -Structure Exposed N/A -Texture (Coretta-wound Skin Appearance) No Abnormality Assessed -Moisture (Coretta-wound Skin Appearance) No Abnormality Assessed -Color (Coretta-wound Skin Appearance) No Abnormality Assessed -Temperature (Coretta-wound Skin No Abnormality No Abnormality Appearance) (Pt Warm) (Pt Warm) -Tenderness on Palpation (Coretta-wound No No Skin Appearance) -Ulcer Cleansing Soap and Water Soap and Water -Foul Odor after Cleansing No No Lower Limb Edema Present Yes Right Calf (cm) 39 39.8 Right Ankle (cm) 21.8 21.7 Left Calf (cm) 41.8 42.1 Left Ankle (cm) 22.5 22.8 WC - Nurse 3 - General Ulcer D/C NN Start: 10/31/22 11:56 Freq: Status: Active Protocol: Activity Type Activity Date Activity User E-sign Co-sign Detail Recorded Client Recorded Date Recorded By Document 10/31/22 11:57 DL [id number] 10/31/22 12:19 DL 10/31/22 11:57 Vital Signs Temperature (97.8 F-99.1 F) 97.2 F L Temperature Source Temporal Pulse Rate (60-100) 84 Pulse Location Monitor Respiratory Rate (12-18) 20 H Respiratory rate source Observation Blood Pressure (90/60-120/80) 169/82 H Blood Pressure Mean 111 Source Monitor Pain Scale: 0-10 Numeric Is Patient Pain Free? Yes Wound Care Center Nurse 3 1-right vigil -Ulcer Cleansing Soap and Water -Foul Odor after Cleansing No -Other Dressing hydrogel -Primary Dressing Covered/Secured with Dry Gauze Right -Multi-Layered Wrap Application Multi-Layer Comp - Bilat ($ ) -Stockings Yes Treatment Response Procedure Tolerated Well WC - Visit Discharge Discharge Condition Stable Ambulatory Status Ambulatory,Cane Transportation Private Auto Assessment/Plan Assessment/Plan (1) Venous stasis ulcer: CODE(S): I83.009 - Varicose veins of unspecified lower extremity with ulcer of unspecified site; L97.909 - Non-pressure chronic ulcer of unspecified part of unspecified lower leg with unspecified severity QUALIFIERS: Venous stasis ulcer site: calf Varicose vein presence: without varicose veins Laterality: right Non-pressure ulcer stage: with fat layer exposed Qualified Code(s): I87.2 - Venous insufficiency (chronic) (peripheral); L97.212 - Non-pressure chronic ulcer of right calf with fat layer exposed (2) Venous hypertension, chronic, with ulcer and inflammation: CODE(S): I87.339 - Chronic venous hypertension (idiopathic) with ulcer and inflammation of unspecified lower extremity QUALIFIERS: Laterality: right Qualified Code(s): I87.331 - Chronic venous hypertension (idiopathic) with ulcer and inflammation of right lower extremity (3) Lipodermatosclerosis: CODE(S): I83.10 - Varicose veins of unspecified lower extremity with inflammation QUALIFIERS: Laterality: bilateral Qualified Code(s): I83.11 - Varicose veins of right lower extremity with inflammation; I83.12 - Varicose veins of left lower extremity with inflammation (4) Right leg swelling: CODE(S): M79.89 - Other specified soft tissue disorders (5) Left leg swelling: CODE(S): M79.89 - Other specified soft tissue disorders (6) Leg edema, right: CODE(S): R60.0 - Localized edema (7) Leg edema, left: CODE(S): R60.0 - Localized edema (8) Dependent edema: CODE(S): R60.9 - Edema, unspecified (9) Hyperpigmentation: CODE(S): L81.9 - Disorder of pigmentation, unspecified (10) Parkinson disease: CODE(S): G20 - Parkinson's disease (11) Urinary incontinence: CODE(S): R32 - Unspecified urinary incontinence QUALIFIERS: Urinary Incontinence type: unspecified incontinence Qualified Code(s): R32 - Unspecified urinary incontinence (12) Obesity: CODE(S): E66.9 - Obesity, unspecified QUALIFIERS: Obesity type: due to excess calories Obesity classification: adult class 2 (BMI 35 - 39.9) Serious obesity comorbidity presence: with serious comorbidity Body mass index: BMI 36.0-36.9 Qualified Code(s): E66.01 - Morbid (severe) obesity due to excess calories; Z68.36 - Body mass index [BMI] 36.0-36.9, adult (13) Diabetes: CODE(S): E11.9 - Type 2 diabetes mellitus without complications QUALIFIERS: Diabetes mellitus type: type 2 Diabetes mellitus nursing home insulin use: with nursing home use Diabetes mellitus complication status: with hyperglycemia Qualified Code(s): E11.65 - Type 2 diabetes mellitus with hyperglycemia; Z79.4 - tank terminal gauger (current) use of insulin (14) History of total right knee replacement: CODE(S): Z96.651 - Presence of right artificial knee joint (15) Inactivity: CODE(S): Z72.3 - Lack of physical exercise (16) Peripheral neuropathy: CODE(S): G62.9 - Polyneuropathy, unspecified (17) History of right inguinal hernia repair: CODE(S): Z98.890 - Other specified postprocedural states; Z87.19 - Personal history of other diseases of the digestive system PLAN: Plan This is a 72-year-old diabetic male who presented with a small open ulceration on the right pretibial area, which had been present for several weeks. The patient has a history of similar such ulcerations, which have occurred spontaneously. The patient is obese and diabetic. He is sedentary, due to limitations on his activity as a result of prior lower extremity fractures and Parkinson's disease. His ambulatory capacity is limited, and he requires the use of a cane for ambulation. He has been sleeping in a recliner at night. We are to implement conservative treatment measures relative to the patient's management. These have been discussed with the patient and his in detail. He has been discouraged from sleeping in a recliner, with his lower extremities in a dependent position. He has been encouraged to either sleep on a flat mattress, or to sleep in his recliner with legs elevated and head down. Leg elevation has been encouraged as much as possible, during both nighttime and daytime hours. Activity has been encouraged, though enhancement of activity level may be limited by his Parkinson's disease and deconditioning. Weight loss has been recommended. Optimization of his nutrition and glycemic control have also been advised. As of today's visit, the patient's right lower extremity ulceration is completely healed and epithelialized. Therefore, the patient is to be discharged, and will follow-up henceforth on an as-needed basis. The patient is to be given Tubigrip's of 20 to 30 mmHg compression, to be worn on a daily basis short-term. Velcro compression garments have been ordered, and are awaited, and are to be used by the patient on a long-term basis. The patient is to be discharged. He is scheduled to travel with his by bus on the [facility] in the next several weeks. A lengthy discussion has been undertaken with the patient and his as to the hazards of travel, the risks of swelling and thrombophlebitis, etc. The patient and his appeared resigned to proceed with their travel plans, and they have been urged to continue with daily compression, leg elevation is much as possible, avoidance of prolonged idle sitting, etc. Total time: 24 minutes
== END 2022-11-04 15:01 | disposition home or self-care (01) ==
LOC: WC 08:45
PROVIDERS: Referring Provider Nurse Practitioner Family; Visit Provider Surgery
DX: I83.11 Varicose veins of right lower extremity with inflammation (principal); G20 Parkinson's disease; E11.65 Type 2 diabetes mellitus with hyperglycemia; E11.59 Type 2 diabetes mellitus with other circulatory complications; E11.42 Type 2 diabetes mellitus with diabetic polyneuropathy; E66.01 Morbid (severe) obesity due to excess calories; Z79.4 Long term (current) use of insulin; R60.0 Localized edema; Z68.36 Body mass index [BMI] 36.0-36.9, adult; E78.5 Hyperlipidemia, unspecified; R32 Unspecified urinary incontinence
CPT/HCPCS: 29581; 99213; G0463

== ENCOUNTER → 2022-11-25 | Outpatient (CLI) | payer MEDICARE, SELFPAY ==
[2022-11-25 12:53] LABS: PSA,Total - Annual Screen 0.53 ng/mL (0.00-4.00)
== END | disposition home or self-care (01) ==
LOC: LAB 11:50
PROVIDERS: Referring Provider Urology; Visit Provider Urology
DX: Z12.5 Encounter for screening for malignant neoplasm of prostate (principal)
CPT/HCPCS: 36415; 84153; G0103

== ENCOUNTER 2023-01-05 16:41 | Emergency (ER) | payer MEDICARE, SELFPAY ==
[2023-01-05 16:42] VITALS: BP 154/85; PULSE 87; RESP 16; TEMP 36.6; O2SAT 94
[2023-01-05 17:13] VITALS: BMI 34.7
--- NOTE | 2023-01-05 17:24 | CT_ITS ---
STUDY: CT BRAIN WITHOUT CONTRAST REASON FOR EXAM: Male, 72 years old. Headache RADIATION DOSAGE (If Supplied By Facility): CTDIvol = ( 44.99 ) mGy, DLP = ( 829.85 ) mGycm TECHNIQUE: Transaxial CT imaging of the brain was performed without administration of intravenous contrast material. Individualized dose optimization techniques were used for this CT. COMPARISON: No relevant priors. FINDINGS: Normal soft tissue structures. Normal calvarium. Slightly prominent ventricles. Normal extra-axial spaces for the patient''s age. Normal white matter tracts of the cerebral hemispheres. Normal basal ganglia and thalami. Normal brainstem. Normal cerebellum. There is no intracranial hemorrhage. There are no findings of an acute ischemic infarction. Normal visualized paranasal sinuses. CT/Brain/Head without Contrast IMPRESSION: No acute intracranial pathology of the brain. Electronically Signed: Carlos Clinton DO at 18:55 EST ,
--- NOTE | 2023-01-05 17:25 | EX.ED.DYSGE1 ---
HPI History of Present Illness Chief Complaint: General Illness Informant: patient and spouse/S.O. Narrative Narrative: Presents with decreased ability to walk. Patient states he got back from vacation about a week ago. He was doing a lot of walking there. He uses a cane because of his Parkinson's. He states he started to have some leg pain. Most of his pain is in the right knee but the left knee hurts too. The right knee commonly hurts but it hurts more than his normal. He states when he gets up to walk his knees hurt so much that he cannot walk. He also states that he gets hot and cold but then states that this is chronic and he has not had a fever. He states he has a very mild anterior headache. But he denies any trauma. He has no lateralizing weakness. He has had no change in his medications. I reviewed his freestyle rayna continuous glucose monitor and his blood sugars have generally been within range over the last 3 or 4 days. He has had a few peaks at about 250 though. Patient has never had a DVT or PE. He is not dyspneic. Patient does have a history of diabetic neuropathy. He used to be on gabapentin but was taken off of this in August. But he did not have symptoms until the last few days to a week. [facility] Medical History Dependent edema Diabetes Hyperlipemia Hyperpigmentation Inactivity Left leg swelling Leg edema, left Leg edema, right Lipodermatosclerosis Parkinson disease Peripheral neuropathy Right leg swelling Venous hypertension, chronic, with ulcer and inflammation Home Medications calcium carbonate 600 mg-vitamin D3 10 mcg (400 unit) chewable tablet (Calcium 600 with Vitamin D3) 1 tab PO DAILY 09/01/22 [History Last Taken Unknown] carbidopa 25 mg-levodopa 100 mg tablet 1 tab PO TID 09/01/22 [History Last Taken Unknown] donepezil 5 mg tablet 10 mg PO DAILY 09/01/22 [History Last Taken Unknown] flash glucose sensor (FreeStyle Rayna 2 Sensor kit) 09/01/22 [History Last Taken Unknown] flash glucose sensor (FreeStyle Rayna 2 Sensor kit) 09/01/22 [History Last Taken Unknown] icosapent ethyl 1 gram capsule (Vascepa) 2 g PO BID 09/01/22 [History Last Taken Unknown] loratadine 10 mg tablet 10 mg PO DAILY 09/01/22 [History Last Taken Unknown] metformin 500 mg tablet,extended release 24 hr 500 mg PO BID 09/01/22 [History Last Taken Unknown] mirabegron 50 mg tablet,extended release 24 hr (Myrbetriq) 50 mg PO DAILY 09/01/22 [History Last Taken Unknown] nitroglycerin 0.4 mg sublingual tablet 0.4 mg sublingual Q5M PRN chest pain 09/01/22 [History Last Taken Unknown] polyethylene glycol 3350 17 gram/dose oral powder (Miralax) 4 g PO DAILY PRN constipation 09/01/22 [History Last Taken Unknown] pramipexole 0.75 mg tablet 0.75 mg PO QHS 09/01/22 [History Last Taken Unknown] rosuvastatin 20 mg tablet 20 mg PO DAILY 09/01/22 [History Last Taken Unknown] venlafaxine 75 mg capsule,extended release 24 hr 75 mg PO BID 09/01/22 [History Last Taken Unknown] insulin lispro protamine-lispro 100 unit/mL (50-50) subcutaneous susp (Humalog Mix 50-50 Insuln U-100) 33 unit (0.33 mL) subcut TIDWMEAL #29.7 mL 09/15/22 [Rx Last Taken Unknown] BD Ultra-Fine Rose Mary Pen Needle 32 gauge x 5/32 (pen needle, diabetic) #100 ea 12/19/22 [Rx Last Taken Unknown] insulin lispro protamine-lispro 100 unit/mL (50-50) subcutaneous pen (Humalog Mix 50-50 KwikPen) 33 unit (0.33 mL) subcut TIDWMEAL #30 mL 12/19/22 [Rx Last Taken Unknown] oxycodone-acetaminophen 5 mg-325 mg tablet 1 tab PO Q6H PRN PRN Pain 3 days #12 TABLETS 01/05/23 [Rx Last Taken Unknown] Allergy/AdvReac Type Severity Reaction Status Date / Time sulfamethoxazole Allergy Rash Verified 01/05/23 16:42 [From Bactrim] trimethoprim [From Bactrim] Allergy Rash Verified 01/05/23 16:42 Family History no significant family his Surgical History History of right inguinal hernia repair History of total right knee replacement Social History household members: spouse housing: house Smoking Status: Never smoker ROS ROS ED Constitutional Constitutional ED: Denies fever(s) Eyes Eyes: Denies change in vision ENT ENT ED: Denies rhinorrhea Cardiovascular Cardiovascular: Denies chest pain or palpitations Respiratory/Chest Respiratory/Chest: Denies cough, dyspnea or sputum Gastrointestinal Gastrointestinal: Denies abdominal pain, diarrhea, nausea or vomiting Genitourinary Genitourinary ED: Reports other Details: Patient states he always has trouble starting his stream but there is no change recently. ; Denies dysuria or hematuria Musculoskeletal Musculoskeletal: Reports arthralgias; Denies back pain or neck pain Integumentary Denies Abrasions or rash Neurologic Neurologic: Reports headache(s); Denies paresthesias or weakness Endocrine Endocrinology: Denies polydipsia or polyuria Hematologic/Lymphatic Hematologic/Lymphatic: Denies easy bleeding or easy bruising Allergic/Immunologic Allergic/Immunologic ED: Denies urticaria EXAM Physical Exam Narrative Exam Narrative: CONSTITUTIONAL: Patient is nontoxic in appearance. The patient looks comfortable. Work of breathing looks normal. HEENT: No notable trauma. Mucous membranes moist. No sinus tenderness. No indication of pain with swallowing. No swelling. No sign of trauma or injury. EYES: No conjunctival injection. No proptosis. Photophobia. NECK:No JVD. No stridor. CARDIOVASCULAR: Regular rate. Regular rhythm. No notable murmur. No JVD. RESPIRATORY: No respiratory distress. Breathing is unlabored. No wheezes. No rhonchi. No rales. No pain with a deep breath. No chest wall tenderness. GASTROINTESTINAL: Not distended. Bowel sounds are normal. No tenderness. No guarding. No rebound. No palpable mass. No bruit is heard. GENITOURINARY: No tenderness over the bladder. No CVA tenderness. MUSCULOSKELETAL: Atraumatic. No peripheral edema. No cord. No tenderness along the deep venous system. No asymmetry. No distended veins. His knees do not seem markedly swollen. They are not red or hot. There is no focal tenderness. But he states when he bears weight it hurts. He can lift his legs off the bed equally. I can move the knees passively without any notable pain. NEUROLOGICAL: Patient is alert and appropriate. No focal deficit noted. SKIN: No noted rashes. No diaphoresis. PSYCHIATRIC: Patient is calm. Does have a mildly flat affect but this is consistent with his significant history of Parkinson's. Const Vital Signs: 01/05/23 16:42 01/05/23 17:14 Temperature 97.8 F Temperature Source Temporal Pulse Rate 87 Respiratory Rate 16 Respiratory Effort Normal Blood Pressure 154/85 H Blood Pressure Mean 108 Pulse Ox 94 Oxygen Delivery Method Room Air MDM MDM MDM Narrative Medical decision making narrative: Patient CBC shows no marked maladies. Patient's electrolytes show no marked abnormalities. Mild elevation of glucose at 157. Patient's liver function test are overall normal. Patient's urine shows a few white cells. But it is clear and he has no symptoms of dysuria. I do not think this needs to be treated. My independent interpretation of the patient's CT of the head shows no acute process and final reading is similar. My independent interpretation of the patient's three-view x-ray of the right knee shows prior knee replacement and what looks like a healed proximal fibular fracture but no acute process. Final reading is similar. My independent interpretation of the patient's three-view x-ray of the left knee shows some DJD but no acute fracture or dislocation and final reading is similar. Patient's ultrasound shows no sign of DVT. Patient was given oxycodone for pain. He was able to get up and walk but very slowly and short distances. He had a shuffling gait. But some of this is due to his Parkinson's. I talked with the patient and his about options. I explained that we could consider bringing him in the hospital if he feels unsafe at home. They can maybe get him into rehab. They would prefer to go home on some pain medicine. They asked if I could write for physical therapy because they have not been able to get a primary physician. We did do this. I will refer him to primary. They have been trying but no one is available. He does have a neurologist and document review attorney that he sees but no primary. The states that if she can get help getting him out of the hospital she can get him in the house. They have no steps. They are on 1 level. And they will get by at home. If he is having further issues he will come back. I think this is a reasonable plan as long as they are comfortable and feels safe doing this. I will have some pain meds filled here for him so they can take those home. Lab Data Attestation: I reviewed the patient's lab results. Labs: Laboratory Results - last 24 hr 01/05/23 01/05/23 17:29 18:50 WBC 8.9 RBC 5.28 Hgb 14.8 Hct 43.9 MCV 83.1 MCH 28.0 MCHC 33.7 RDW Std Deviation 41.8 RDW Coeff of Yoana 13.9 Plt Count 233 MPV 8.9 Immature Gran % (Auto) 0.600 Neut % (Auto) 77.1 H Lymph % (Auto) 12.1 L Park % (Auto) 7.6 Eos % (Auto) 2.3 Baso % (Auto) 0.3 Absolute Neuts (auto) 6.8 Absolute Lymphs (auto) 1.07 Nucleated RBC % 0 Sodium 136 Potassium 4.5 Chloride 104 Carbon Dioxide 27.0 Anion Gap 5 BUN 20 H Creatinine 1.19 Estim Creat Clear Calc 61.59 Est GFR (MDRD) Af Amer 77 Est GFR (MDRD) Non-Af 64 BUN/Creatinine Ratio 16.8 Glucose 157 H Calcium 9.9 Total Bilirubin 0.40 AST 8 L ALT < 6 L Alkaline Phosphatase 117 Total Creatine Kinase 54 Total Protein 7.1 Albumin 3.7 Globulin 3.4 Albumin/Globulin Ratio 1.1 Urine Color Yellow Urine Clarity Clear Urine pH 6.0 Ur Specific [place] 1.020 Urine Protein 30 H Urine Glucose (UA) Normal Urine Ketones 5 H Urine Occult Blood Negative Urine Nitrite Negative Urine Bilirubin Negative Urine Urobilinogen Normal Ur Leukocyte Esterase 500 H Urine RBC 0 SEEN Urine WBC 5-10 SEEN Ur Squamous Epith Cells 0 SEEN Urine Bacteria 0 SEEN Urine Mucus 0 SEEN Radiography Diagnostic Testing: Clinical Impression(s) from Imaging Studies Brain CT 01/05/23 17:24 IMPRESSION: No acute intracranial pathology of the brain. Electronically Signed: Carlos Clinton DO at 18:55 EST Reading Location ID and State: [facility] / [place] Tel [phone], Service support , Venous Duplex 01/05/23 17:41 IMPRESSION: No sonographic evidence of deep venous thrombosis. Fluid collection of the left knee medially. Electronically Signed: Carlos Clinton DO at 19:02 EST , Knee X-Ray 01/05/23 20:12 IMPRESSION: Total right knee replacement. No acute bony injury. Electronically Signed: Carlos Clinton DO at 21:10 EST , Knee X-Ray 01/05/23 20:12 IMPRESSION: Mild degenerative changes. Electronically Signed: Carlos Clinton DO at 21:11 EST , Discharge Plan Triage Chief Complaint: General Illness ED Provider: Tu Jenkins Dx/Rx/DC Orders Clinical Impression: History of Parkinson's disease, Bilateral knee pain Instructions: ED Arthralgia Prescriptions: New oxycodone-acetaminophen [oxycodone-acetaminophen] 5-325 mg tablet 1 tab PO Q6H PRN PRN (Reason: Pain) 3 Days Qty: 12 0RF No Action donepezil 5 mg tablet 10 mg PO DAILY Patient Comments: take 2 tablet by mouth EVERY MORNING WITH BREAKFAST Calcium 600 with Vitamin D3 600 mg-10 mcg (400 unit) tablet,chewable 1 tab PO DAILY carbidopa-levodopa 25-100 mg tablet 1 tab PO TID (DME) FreeStyle Rayna 2 Sensor Kit See Rx Instructions .ROUTE Rx Instructions: As directed (DME) FreeStyle Rayna 2 Sensor Kit See Rx Instructions .ROUTE Rx Instructions: As directed icosapent ethyl [Vascepa] 1 gram capsule 2 g PO BID loratadine 10 mg tablet 10 mg PO DAILY metformin 500 mg tablet extended release 24 hr 500 mg PO BID Myrbetriq 50 mg tablet extended release 24 hr 50 mg PO DAILY nitroglycerin 0.4 mg tablet, sublingual 0.4 mg sublingual Q5M PRN (Reason: chest pain) Rx Instructions: do not exceed 3 doses per episode polyethylene glycol 3350 [Miralax] 17 gram/dose powder 4 g PO DAILY PRN (Reason: constipation) pramipexole 0.75 mg tablet 0.75 mg PO QHS rosuvastatin 20 mg tablet 20 mg PO DAILY venlafaxine 75 mg capsule,extended release 24hr 75 mg PO BID Humalog Mix 50-50 Insuln U-100 100 unit/mL (50-50) suspension 33 unit subcut TIDWMEAL Qty: 29.7 5RF Humalog Mix 50-50 KwikPen 100 unit/mL (50-50) insulin pen 33 unit subcut TIDWMEAL Qty: 30 6RF (DME) pen needle, diabetic [BD Ultra-Fine Rose Mary Pen Needle] 32 gauge x 5/32 needle See Rx Instructions .ROUTE .MEDSUPPLY Qty: 100 6RF Rx Instructions: tid Other Ambulatory Orders: Physical Therapy Evaluation (Routine) Location: None Selected Ordered By: Dr. Tu Jenkins Primary Care Provider: Care Physician,No Primary Referrals: Roman Gutierrez MD [Non-Staff] - As soon as possible Care Physician,No Primary [Primary Care Provider] - Disposition Disposition: Home, Self Care Discharge Date/Time: 01/05/23 23:21
[2023-01-05 17:41] LABS: Absolute Lymphocyte Count 1.07 X10^3/uL (0.83-4.51); Absolute Neutrophil Count 6.8 X10^3/uL (2.0-7.7); Basophil# 0.03 X10^3/uL; Basophil% 0.3 % (0-1); Eosinophils% 2.3 % (0-5); Hematocrit 43.9 % (40-54); Hemoglobin 14.8 g/dL (13.0-16.5); Lymphocyte # 1.07 X10^3/ul (0.83-4.51); Lymphocyte % 12.1 % (19-41); Mean Corp Hgb Conc 33.7 g/dL (32-36); Mean Corpuscular Volume 83.1 fL (80-94); Mean Platelet Vol. 8.9 fl (6.2-12.0); Monocyte# 0.67 X10^3/uL; Monocyte% 7.6 % (0-10); NRBC Flagged by Analyzer 0 % (0-5); Neutrophil # 6.84 X10^3/uL (2.7-7.7); Neutrophil % 77.1 % (47-70); Platelet Count 233 K/mm3 (150-450); RBC Distribution Width CV 13.9 % (11.6-14.6); RBC Distribution Width SD 41.8 fl (35.1-43.9); Red Blood Count 5.28 M/mm3 (4.6-6.2); White Blood Count 8.9 K/mm3 (4.4-11.0)
--- NOTE | 2023-01-05 17:41 | US_ITS ---
INDICATION: PAIN EXAMINATION: Ultrasound US Venous Duplex LE Bilat Complete TECHNIQUE: Skinner scale, pulse wave, and color flow Doppler imaging was performed of the lower extremity venous system. The bilateral greater saphenous, common femoral, femoral, and popliteal veins were interrogated. COMPARISON: FINDINGS: There is normal compression, augmentation, and signal throughout the visualized deep lower extremity veins bilaterally. There is a 4.8 cm collection at the left knee medially. US/Venous Duplex Imag/Luis Alberto Extrem IMPRESSION: No sonographic evidence of deep venous thrombosis. Fluid collection of the left knee medially. Electronically Signed: Carlos Clinton DO at 19:02 EST Reading Location ID and State: [facility] / [place] Tel [phone], Service support ,
[2023-01-05 18:02] LABS: ALB/GLOB Ratio 1.1 RATIO (0.9-2.4); AST(SGOT) 8 U/L (15-37); Alanine Aminotransfer ALT/SGPT < 6 U/L (16-61); Albumin, Serum 3.7 g/dL (3.2-5.0); Alkaline Phosphatase 117 U/L (45-117); Anion Gap 5 (5-15); BUN 20 mg/dL (7-18); BUN/Creat Ratio 16.8 RATIO (10-20); CPK Total, Creatine Kinase 54 U/L (39-308); Calcium,Total 9.9 mg/dL (8.5-10.1); Chloride 104 mmol/L (98-107); Creatinine, Serum 1.19 mg/dL (0.70-1.30); EST Glomerular Filtration Rate 64 mL/min (>60); Est Glom Filt Rate - Afr Amer 77 mL/min (>60); Estimated Creatinine Clearance 61.59 ml/min; Globulin 3.4 g/dL (2.2-4.2); Glucose 157 mg/dL (74-106); Potassium 4.5 mmol/L (3.5-5.1); Protein, Total 7.1 g/dL (6.4-8.2); Sodium Level 136 mmol/L (136-145)
[2023-01-05 19:01] LABS: Bacteria 0 SEEN /hpf (None Seen); Mucous, Urine 0 SEEN /hpf (<or=2+); Red Blood Cells-Urine 0 SEEN /hpf (0-5); Squamous Epithelial Cells - UA 0 SEEN /hpf (0-5)
[2023-01-05 19:21] LABS: Color, Urine Yellow (Yellow); Glucose, Dipstick Normal (Normal); Ketone-Dipstick 5 mg/dl (Negative); Leukocyte Esterase-Dipstick 500 /ul (Negative); Nitrite-Dipstick Negative (Negative); Occult Blood-Urine Negative /ul (Negative); Protein-Dipstick 30 mg/dl (Negative); Urine Bilirubin Dipstick Negative (Negative); Urine Clarity Clear (Clear); Urine Urobilinogen Normal (Normal)
[2023-01-05 19:31] LABS: White Blood Cells 5-10 SEEN /hpf (0-5)
[2023-01-05] MEDS: oxyCODONE 5 MG Tablet PO (19:57)
--- NOTE | 2023-01-05 20:12 | RAD_ITS ---
INDICATION: pain EXAMINATION/TECHNIQUE: X-RAY - RIGHT XR Knee 3 Views COMPARISON: FINDINGS: There is a right total knee replacement. The hardware components are well aligned . Old fibular shaft fracture. RAD/Knee 3 Views IMPRESSION: Total right knee replacement. No acute bony injury. Electronically Signed: Carlos Clinton DO at 21:10 EST ,
--- NOTE | 2023-01-05 20:12 | RAD_ITS ---
INDICATION: PAIN EXAMINATION/TECHNIQUE: X-RAY - LEFT XR Knee 3 Views COMPARISON: FINDINGS: SOFT TISSUES: No soft tissue swelling or gas. No radiopaque foreign body. BONES/JOINTS: No acute fracture or subluxation.. There is narrowing of the patellofemoral compartment.. No sclerotic or destructive changes observed. RAD/Knee 3 Views IMPRESSION: Mild degenerative changes. Electronically Signed: Carlos Clinton DO at 21:11 EST ,
== END 2023-01-05 23:21 | disposition home or self-care (01) ==
PROVIDERS: Emergency Provider Emergency Medicine; Visit Provider Emergency Medicine
DX: M25.561 Pain in right knee (principal); E11.42 Type 2 diabetes mellitus with diabetic polyneuropathy; Z79.4 Long term (current) use of insulin; M25.562 Pain in left knee; M79.604 Pain in right leg; M79.605 Pain in left leg; G20.C Parkinsonism, unspecified; M19.90 Unspecified osteoarthritis, unspecified site; E78.5 Hyperlipidemia, unspecified; Z79.84 Long term (current) use of oral hypoglycemic drugs; Z79.899 Other long term (current) drug therapy
CPT/HCPCS: 70450; 73562; 80053; 81001; 82550; 85025; 93970; 99282

== ENCOUNTER 2023-02-25 16:21 | Observation (INO) | payer MEDICARE, SELFPAY ==
[2023-02-25 16:22] VITALS: BP 182/100; PULSE 91; RESP 14; TEMP 36.8; O2SAT 98; BMI 35.9
--- NOTE | 2023-02-25 16:25 | ED.RN ---
MAD BECAUSE SHE HAS TO BUY WATER OUT OF VENDING MACHINE.
--- NOTE | 2023-02-25 16:26 | ED.RN ---
GIVEN CUP OF ICE WATER.
--- NOTE | 2023-02-25 18:03 | EX.ED.DYSGE1 ---
HPI <SUSSY Henriquez - Last Filed: 02/25/23 19:38> History of Present Illness Chief Complaint: Weakness Narrative Narrative: 72-year-old male has history of Parkinson's disease. Around the beginning of December he developed decreased ability to walk. He sometimes has pain in both knees but it is mostly that he has difficulty standing up. He uses a walker. He has a shuffling gait. He is also started having intermittent headaches and difficulty sleeping at this time. He was evaluated [facility] for the symptoms on 01/05 had normal blood work, bilateral knee x-rays, negative ultrasounds for DVT. He was prescribed oxycodone for pain and given a physical therapy prescription. PT states he is not making progress. They told him to use a walker at all times because he is unstable. He also saw his neurologist in [place] 2 weeks ago and was prescribed quetiapine for sleep. His states he is fallen 3 times this week. This morning he slid off the bed onto his side. He is has not hit his head with any of the falls. Today it took him 30 minutes to pull himself up using a chair. They called the PCP who told him to come to the ED. [facility] <SUSSY Henriquez - Last Filed: 02/25/23 19:38> [facility] Medical History Dependent edema Diabetes Hyperlipemia Hyperpigmentation Inactivity Left leg swelling Leg edema, left Leg edema, right Lipodermatosclerosis Parkinson disease Peripheral neuropathy Right leg swelling Venous hypertension, chronic, with ulcer and inflammation Home Medications calcium carbonate 600 mg-vitamin D3 10 mcg (400 unit) chewable tablet (Calcium 600 with Vitamin D3) 1 tab PO DAILY viatmin 09/01/22 [History Last Taken Unknown] carbidopa 25 mg-levodopa 100 mg tablet 1 tab PO TID parkinson 09/01/22 [History Last Taken Unknown] flash glucose sensor (FreeStyle Aliya 2 Sensor kit) 09/01/22 [History Last Taken Unknown] flash glucose sensor (FreeStyle Aliya 2 Sensor kit) 09/01/22 [History Last Taken Unknown] icosapent ethyl 1 gram capsule (Vascepa) 2 g PO BID hyperlipidemia 09/01/22 [History Last Taken Unknown] nitroglycerin 0.4 mg sublingual tablet 0.4 mg sublingual Q5M PRN chest pain 09/01/22 [History Last Taken Unknown] polyethylene glycol 3350 17 gram/dose oral powder (Miralax) 4 g PO DAILY PRN constipation 09/01/22 [History Last Taken Unknown] pramipexole 0.75 mg tablet 0.75 mg PO QHS restless legs 09/01/22 [History Last Taken Unknown] rosuvastatin 20 mg tablet 20 mg PO DAILY hyperlipidemia 09/01/22 [History Last Taken Unknown] BD Ultra-Fine Rose Mary Pen Needle 32 gauge x 5/32 (pen needle, diabetic) #100 ea 12/19/22 [Rx Last Taken Unknown] metformin 500 mg tablet,extended release 24 hr 1,000 mg (2 x 500 mg) PO BID diabetes #360 tabs 01/07/23 [Rx Last Taken Unknown] mirabegron 50 mg tablet,extended release 24 hr (Myrbetriq) 50 mg PO DAILY bladder #30 tabs 02/02/23 [Rx Last Taken Unknown] venlafaxine 75 mg capsule,extended release 24 hr 75 mg PO BID depression #60 caps 02/02/23 [Rx Last Taken Unknown] donepezil 5 mg tablet 5 mg PO .COMPLEX tremors 02/25/23 [History Last Taken Unknown] insulin lispro protamine-lispro 100 unit/mL (50-50) subcutaneous pen (Humalog Mix 50-50 KwikPen) 33 unit subcut .COMPLEX diabetes 02/25/23 [History Last Taken Unknown] quetiapine 25 mg tablet 12.5 mg PO QHS sleep 02/25/23 [History Last Taken Unknown] venlafaxine 75 mg tablet 75 mg PO BID depression 02/25/23 [History Last Taken Unknown] Allergy/AdvReac Type Severity Reaction Status Date / Time sulfamethoxazole Allergy Rash Verified 02/25/23 16:21 [From Bactrim] trimethoprim [From Bactrim] Allergy Rash Verified 02/25/23 16:21 Surgical History History of right inguinal hernia repair History of total right knee replacement Social History household members: spouse housing: house Smoking Status: Never smoker ROS <SUSSY Henriquez - Last Filed: 02/25/23 19:38> ROS ED ROS Narrative Constitutional: Negative for fever, chills, malaise. CVS: Negative for chest pain, syncope. Respiratory: Negative for shortness of breath, cough. GI: Negative for abdominal pain, nausea, vomiting. EXAM <SUSSY Henriquez - Last Filed: 02/25/23 19:38> Physical Exam Narrative Exam Narrative: CONST: Patient sitting in no acute distress. EYES: Normal inspection. NECK: Normal inspection. RESP: No respiratory distress, CTAB. CVS: Regular rate and rhythm, no murmur, no gallop. ABD: Soft and nontender, no guarding or rebound, nondistended. SKIN: Color normal, no rash, warm, dry, intact. EXTREMITIES: Normal appearance, no pedal edema. NEURO: Oriented x4. PSYCH: Normal affect. Const Vital Signs: 02/25/23 16:22 02/25/23 17:59 02/25/23 18:21 Temperature 98.2 F Temperature Source Temporal Pulse Rate 91 82 Respiratory Rate 14 14 Respiratory Effort Normal Respiratory Pattern Normal Blood Pressure 182/100 H 144/84 H Blood Pressure Mean 127 104 Pulse Ox 98 95 Oxygen Delivery Method Room Air Room Air <Dr. Mitesh Campos MD - Last Filed: 02/25/23 21:44> Physical Exam Const Vital Signs: 02/25/23 16:22 02/25/23 17:59 02/25/23 18:21 Temperature 98.2 F Temperature Source Temporal Pulse Rate 91 82 Respiratory Rate 14 14 Respiratory Effort Normal Respiratory Pattern Normal Blood Pressure 182/100 H 144/84 H Blood Pressure Mean 127 104 Pulse Ox 98 95 Oxygen Delivery Method Room Air Room Air MDM <SUSSY Henriquez - Last Filed: 02/25/23 19:38> MDM MDM Narrative Medical decision making narrative: History gathered from: Patient and spouse Patient has 2 months of increased difficulty walking. Also complains of headaches and sleep disturbance. Has had extensive workup for this here on 01/05. He states he seen his primary care and tried physical therapy but continues to decline. He has had multiple falls this week despite using a walker. No injuries from his falls. He appears well and nontoxic. BP is 182/100 with otherwise normal vital signs. He has no focal neurological deficits on exam. Patient and his state he cannot manage at home and needs to go to rehab and I agree. CBC is within normal limits. BMP shows creatinine 1.31 which is around his baseline. Glucose is 289 with normal CO2 and anion gap. I suspect his difficulty walking and weakness is from his Parkinson's although the patient and his are resistant to this. He has a shuffling gait and difficulty changing positions. His sleep disturbance also sounds like it can be from Parkinson's. His neurologist had prescribed Seroquel. Case was discussed with the hospitalist for admission. Lab Data Attestation: I reviewed the patient's lab results. Labs: Laboratory Results - last 24 hr 02/25/23 18:18 WBC 7.1 RBC 5.19 Hgb 14.0 Hct 43.1 MCV 83.0 MCH 27.0 MCHC 32.5 RDW Std Deviation 41.8 RDW Coeff of Yoana 13.9 Plt Count 234 MPV 9.1 Immature Gran % (Auto) 0.300 Neut % (Auto) 71.8 H Lymph % (Auto) 16.8 L [place] % (Auto) 8.3 Eos % (Auto) 2.5 Baso % (Auto) 0.3 Absolute Neuts (auto) 5.1 Absolute Lymphs (auto) 1.19 Nucleated RBC % 0 Sodium 137 Potassium 4.1 Chloride 103 Carbon Dioxide 27.0 Anion Gap 7 BUN 25 H Creatinine 1.31 H Estim Creat Clear Calc 55.95 Est GFR (MDRD) Af Amer 69 Est GFR (MDRD) Non-Af 57 L BUN/Creatinine Ratio 19.1 Glucose 289 H Calcium 9.3 <Dr. Mitesh Campos MD - Last Filed: 02/25/23 21:44> [facility] Narrative Medical decision making narrative: History gathered from: Patient and spouse Patient has 2 months of increased difficulty walking. Also complains of headaches and sleep disturbance. Has had extensive workup for this here on 01/05. He states he seen his primary care and tried physical therapy but continues to decline. He has had multiple falls this week despite using a walker. No injuries from his falls. He appears well and nontoxic. BP is 182/100 with otherwise normal vital signs. He has no focal neurological deficits on exam. Patient and his state he cannot manage at home and needs to go to rehab and I agree. CBC is within normal limits. BMP shows creatinine 1.31 which is around his baseline. Glucose is 289 with normal CO2 and anion gap. I suspect his difficulty walking and weakness is from his Parkinson's although the patient and his are resistant to this. He has a shuffling gait and difficulty changing positions. His sleep disturbance also sounds like it can be from Parkinson's. His neurologist had prescribed Seroquel. Case was discussed with the hospitalist for admission. I have personally performed a face to face assessment of the patient and have reviewed the JENNI Note. I performed a substantive portion of the visit including all aspects of the following. My smith findings include: History is remarkable for proximal disease with frequent falls. He is in significant pain. was upset that PCP normal hospitalist when he was admitted discharged him with pain medicine. He states he week. Unable to function well at home. He does have history of Parkinson disease. He was seen by his neurologist at the neurologist does not believe the falls are related to his Parkinson's disease. He denies fever, chills night sweats. Nuys headache, visual, ocular auditory symptoms. He denies cardiac respiratory symptoms. He does endorse bilateral knee pain. Exam is patient is obese. HEENT exam is unremarkable. Heart lung exam is normal. Abdomen soft nontender. Lower extremity exam reveals significant edema. Medical Decision Making CBC was obtained to assess H&H and compared to prior. ENP to assess no and glucose since she has treated the diabetes. Also assess renal function since he has history hypertension with history of proteinuria. Other additions or changes: Since is no longer able to care for him will have hospitalist admit for PT OT eval and possible inpatient rehab at nursing facility. Lab Data Lab results narrative: CBC is unremarkable. Glucose is elevated 289 with a normal CO2 anion gap. Creatinine is elevated 1.31. Labs: Laboratory Results - last 24 hr 02/25/23 18:18 WBC 7.1 RBC 5.19 Hgb 14.0 Hct 43.1 MCV 83.0 MCH 27.0 MCHC 32.5 RDW Std Deviation 41.8 RDW Coeff of Yoana 13.9 Plt Count 234 MPV 9.1 Immature Gran % (Auto) 0.300 Neut % (Auto) 71.8 H Lymph % (Auto) 16.8 L [place] % (Auto) 8.3 Eos % (Auto) 2.5 Baso % (Auto) 0.3 Absolute Neuts (auto) 5.1 Absolute Lymphs (auto) 1.19 Nucleated RBC % 0 Sodium 137 Potassium 4.1 Chloride 103 Carbon Dioxide 27.0 Anion Gap 7 BUN 25 H Creatinine 1.31 H Estim Creat Clear Calc 55.95 Est GFR (MDRD) Af Amer 69 Est GFR (MDRD) Non-Af 57 L BUN/Creatinine Ratio 19.1 Glucose 289 H Calcium 9.3 Discharge Plan Dx/Rx/DC Orders Clinical Impression: Recurrent falls, Parkinson's disease, Difficulty in walking, Dependent edema, Peripheral neuropathy, Hyperglycemia due to type 2 diabetes mellitus, Elevated serum creatinine Disposition Disposition: Acute Care Hospital [facility] Discharge Date/Time: 02/25/23 20:36
[2023-02-25 18:21] VITALS: BP 144/84; PULSE 82; RESP 14; O2SAT 95
[2023-02-25 18:38] LABS: Absolute Lymphocyte Count 1.19 X10^3/uL (0.83-4.51); Absolute Neutrophil Count 5.1 X10^3/uL (2.0-7.7); Basophil# 0.02 X10^3/uL; Basophil% 0.3 % (0-1); Eosinophil# 0.18 X10^3/uL; Eosinophils% 2.5 % (0-5); Hematocrit 43.1 % (40-54); Lymphocyte # 1.19 X10^3/ul (0.83-4.51); Lymphocyte % 16.8 % (19-41); Mean Corp Hgb Conc 32.5 g/dL (32-36); Mean Platelet Vol. 9.1 fl (6.2-12.0); Monocyte# 0.59 X10^3/uL; Monocyte% 8.3 % (0-10); NRBC Flagged by Analyzer 0 % (0-5); Neutrophil # 5.08 X10^3/uL (2.7-7.7); Neutrophil % 71.8 % (47-70); Platelet Count 234 K/mm3 (150-450); RBC Distribution Width CV 13.9 % (11.6-14.6); RBC Distribution Width SD 41.8 fl (35.1-43.9); Red Blood Count 5.19 M/mm3 (4.6-6.2); White Blood Count 7.1 K/mm3 (4.4-11.0)
[2023-02-25 18:39] LABS: POSITIVE COUNT NO; POSITIVE DIFFERENTIAL NO; POSITIVE MORPHOLOGY NO
[2023-02-25 18:46] LABS: Anion Gap 7 (5-15); BUN 25 mg/dL (7-18); BUN/Creat Ratio 19.1 RATIO (10-20); Calcium,Total 9.3 mg/dL (8.5-10.1); Chloride 103 mmol/L (98-107); Creatinine, Serum 1.31 mg/dL (0.70-1.30); EST Glomerular Filtration Rate 57 mL/min (>60); Est Glom Filt Rate - Afr Amer 69 mL/min (>60); Estimated Creatinine Clearance 55.95 ml/min; Glucose 289 mg/dL (74-106); Potassium 4.1 mmol/L (3.5-5.1); Sodium Level 137 mmol/L (136-145)
--- NOTE | 2023-02-25 19:12 | HP.PCM.HOS_ITS ---
HPI - General General Date of Admission: 02/25/23 Date of Service: 02/25/23 Chief Complaint: Worsening weakness HPI Narrative DEEPA ABRAHAM, is a 72 M who presented to [facility] ED on 02/25/2023 with worsening weakness at home. Patient seen at bedside in the ED, present. Patient has known history of Parkinson's disease, was diagnosed about 4 years ago. States he has been on the same dose of Sinemet now for the last several months. Follows with neurology in the office, but he and state that neurology is not done much with regards to his Parkinson's disease for some time. Patient recently saw neurology in the office about 2 weeks ago and was prescribed Seroquel 12.5 mg at night for insomnia. Patient and state this has not been very helpful for him. Patient lives at home, uses a walker for ambulation. Came to the ED at the beginning of December for worsening leg cramps and bilateral knee pain. Bilateral knee x-rays were benign, and patient was discharged home with outpatient physical therapy. Has been working with outpatient physical therapy but does not feel like he is getting any better. He has now had some minor falls in the home over the past few weeks, states that his legs feel like they just give out with these episodes. Feels like he has upper leg muscular cramps with some pain shooting down into the knees and lower legs. Patient and do state that his Parkinson's tremor does seem to be a bit worse over the past few months, and has been especially worse at night. Patient otherwise denies any chest pain, shortness of breath, abdominal pain, fevers or chills, lightheadedness or dizziness. No other acute concerns this time. [facility] Medical History Dependent edema Diabetes Hyperlipemia Hyperpigmentation Inactivity Left leg swelling Leg edema, left Leg edema, right Lipodermatosclerosis Parkinson disease Peripheral neuropathy Right leg swelling Venous hypertension, chronic, with ulcer and inflammation Home Medications calcium carbonate 600 mg-vitamin D3 10 mcg (400 unit) chewable tablet (Calcium 600 with Vitamin D3) 1 tab PO DAILY viatmin 09/01/22 [History Last Taken Unknown] carbidopa 25 mg-levodopa 100 mg tablet 1 tab PO TID parkinson 09/01/22 [History Last Taken Unknown] flash glucose sensor (FreeStyle Aliya 2 Sensor kit) 09/01/22 [History Last Taken Unknown] flash glucose sensor (FreeStyle Aliya 2 Sensor kit) 09/01/22 [History Last Taken Unknown] icosapent ethyl 1 gram capsule (Vascepa) 2 g PO BID hyperlipidemia 09/01/22 [History Last Taken Unknown] nitroglycerin 0.4 mg sublingual tablet 0.4 mg sublingual Q5M PRN chest pain 09/01/22 [History Last Taken Unknown] polyethylene glycol 3350 17 gram/dose oral powder (Miralax) 4 g PO DAILY PRN constipation 09/01/22 [History Last Taken Unknown] pramipexole 0.75 mg tablet 0.75 mg PO QHS restless legs 09/01/22 [History Last Taken Unknown] rosuvastatin 20 mg tablet 20 mg PO DAILY hyperlipidemia 09/01/22 [History Last Taken Unknown] BD Ultra-Fine Rose Mary Pen Needle 32 gauge x 5/32 (pen needle, diabetic) #100 ea 12/19/22 [Rx Last Taken Unknown] metformin 500 mg tablet,extended release 24 hr 1,000 mg (2 x 500 mg) PO BID diabetes #360 tabs 01/07/23 [Rx Last Taken Unknown] mirabegron 50 mg tablet,extended release 24 hr (Myrbetriq) 50 mg PO DAILY bladder #30 tabs 02/02/23 [Rx Last Taken Unknown] venlafaxine 75 mg capsule,extended release 24 hr 75 mg PO BID depression #60 caps 02/02/23 [Rx Last Taken Unknown] donepezil 5 mg tablet 5 mg PO .COMPLEX tremors 02/25/23 [History Last Taken Unknown] insulin lispro protamine-lispro 100 unit/mL (50-50) subcutaneous pen (Humalog Mix 50-50 KwikPen) 33 unit subcut .COMPLEX diabetes 02/25/23 [History Last Taken Unknown] quetiapine 25 mg tablet 12.5 mg PO QHS sleep 02/25/23 [History Last Taken Unknown] venlafaxine 75 mg tablet 75 mg PO BID depression 02/25/23 [History Last Taken Unknown] Allergy/AdvReac Type Severity Reaction Status Date / Time sulfamethoxazole Allergy Rash Verified 02/25/23 16:21 [From Bactrim] trimethoprim [From Bactrim] Allergy Rash Verified 02/25/23 16:21 Surgical History History of right inguinal hernia repair History of total right knee replacement Social History household members: spouse housing: house Smoking Status: Never smoker ROS Constitutional Constitutional: Reports weakness; Denies chills, fatigue or fever(s) Eyes Eyes: Denies change in vision ENT HEENT: Denies dysphagia Cardiovascular Cardiovascular: Denies chest pain Respiratory/Chest Respiratory/Chest: Denies cough Gastrointestinal Gastrointestinal: Reports constipation; Denies abdominal pain or diarrhea Genitourinary Genitourinary: Denies dysuria Musculoskeletal Musculoskeletal: Reports arthralgias and joint pain; Denies back pain Neurologic Neurologic: Reports abnormal gait; Denies confusion, dizziness, focal weakness, headache(s), numbness or paresthesias Vital Signs Vital Signs Vital Signs: 02/25/23 16:22 02/25/23 17:59 Temperature 98.2 F Temperature Source Temporal Pulse Rate 91 Respiratory Rate 14 Respiratory Effort Normal Respiratory Pattern Normal Blood Pressure 182/100 H Blood Pressure Mean 127 Pulse Ox 98 Oxygen Delivery Method Room Air Weight Weight: 120.202 kg Body Mass Index (BMI) 35.9 Physical Exam Const alert, oriented x3 and no apparent distress Constitutional Narrative: Elderly male, flat affect and mild stutter with speech, obese, sitting up comfortably in bed, no acute distress. General Appearance: cooperative and comfortable HEENT normocephalic, head/scalp atraumatic, hearing grossly normal bilaterally, nasal mucous membranes and turbinates normal and moist oral mucous membranes Eyes PERRL, EOMs intact bilaterally and conjunctivae normal Neck no lymphadenopathy and supple Lymph Lymphatic: no lymphadenopathy noted Chest inspection of chest normal Resp normal respiratory effort, normal air movement, no use of accessory muscles and clear to auscultation bilaterally Cardio regular rate, regular rhythm, no murmurs and peripheral pulses 2+ throughout GI GI Narrative: Mildly distended and hard, nontender to palpation. Normoactive bowel sounds. Back/Spine normal ROM Extremity normal to inspection and no pedal edema Skin no rashes or lesions noted Neuro no focal motor deficits Neuro Narrative: Slowed movement throughout but moving all extremities without issue. Gait not examined. Psych mental status grossly normal Results Lab / Micro Data 02/25/23 18:18 02/25/23 18:18 Labs: Laboratory Results - last 24 hr 02/25/23 18:18: WBC 7.1, RBC 5.19, Hgb 14.0, Hct 43.1, MCV 83.0, MCH 27.0, MCHC 32.5, RDW Std Deviation 41.8, RDW Coeff of Yoana 13.9, Plt Count 234, MPV 9.1, Immature Gran % (Auto) 0.300, Neut % (Auto) 71.8 H, Lymph % (Auto) 16.8 L, [place] % (Auto) 8.3, Eos % (Auto) 2.5, Baso % (Auto) 0.3, Absolute Neuts (auto) 5.1, A bsolute Lymphs (auto) 1.19, Nucleated RBC % 0, Sodium 137, Potassium 4.1, Chloride 103, Carbon Dioxide 27.0, Anion Gap 7, BUN 25 H, Creatinine 1.31 H, Est im Creat Clear Calc 55.95, Est GFR (MDRD) Af Amer 69, Est GFR (MDRD) Non-Af 57 L , BUN/Creatinine Ratio 19.1, Glucose 289 H, Calcium 9.3 Assessment & Plan Assessment/Plan (1) Parkinson's disease: (2) Recurrent falls: (3) Weakness: PLAN: Plan Patient is a 72-year-old male who presented to [facility] ED on 02/25/2023 with worsening weakness. 1. Worsening weakness, history of Parkinson disease Seems most likely due to advancing of his Parkinson's disease. Notably with ED visit in early December for bilateral leg and knee pain with falls, knee x-rays negative, discharged home. ? Admit under observation status to [facility]. PT/OT/case management consulted. Patient and would prefer for discharge to the TCU if possible. Continue home Sinemet. Continue home donepezil. Seems like patient could use further neurology input on potentially adding adjunctive medications for improved symptom control of Parkinson's disease, but will defer this to his outpatient neurologist. 2. Type 2 diabetes mellitus with hyperglycemia BG 289 on admit. Home regimen of insulin protamine-lispro 50/50 32-25-28 units with meals, metformin 1000 mg twice daily. Follows with outpatient endocrinology, last office visit on 02/02/2023. A1c 8.4% on 02/02. ? Will start Lantus 30 units at night, Humalog 10 units with meals plus high?medium sliding scale, adjust as needed. 3. Constipation ? Reports fairly consistent constipation with hard stool output. Mildly distended and hard abdomen on palpation. Likely due to poor mobility. Will s tart scheduled senna and MiraLAX daily with Dulcolax suppositories as needed. 4. Depression/anxiety/insomnia/restless leg syndrome ? Started on Seroquel 12.5 mg at night for insomnia by neurology about 2 weeks ago, reports minimal effect. Will increase to Seroquel 25 mg at night. Continue home pramipexole and venlafaxine. Chronic medical conditions: ? Hyperlipidemia: Continue statin. ? Overactive bladder: Continue home Myrbetriq. ? Obesity: BMI 36 on admit. Encouraged lifestyle modifications. Complicates hospital course, care and prognosis. DVT prophylaxis: Lovenox CODE STATUS: Full code, verified Expected disposition: SNF, 1 to 2 days Total clinical time spent by myself addressing the patient's medical issues, reviewing all the data, and collaborating with patient's care team: 55 minutes. Charges/Coding Visit Charges Inpatient E&M: 20230 Init Hosp L2
[2023-02-25 19:55] VITALS: BP 148/92; PULSE 83; RESP 15; TEMP 36.8; O2SAT 96
[2023-02-25 20:49] VITALS: BMI 36.4
[2023-02-25 21:10] VITALS: BP 140/84; PULSE 88; RESP 18; TEMP 36.6; O2SAT 97
[2023-02-25 23:20] LABS: Bedside Glucose 299 mg/dL (74-106)
[2023-02-25] MEDS: Insulin Lispro 100 UNIT/ML INSULN.PEN SC (23:26)
[2023-02-25] MEDS: Insulin Glargine-YFGN 100 UNIT/ML Pen 30 UNIT SC (23:27)
[2023-02-25] MEDS: Miconazole Nitrate 43 GM Bottle 1 APPLIC TOPICAL (23:29)
[2023-02-25] MEDS: Menthol/Lanolin/Calamine/Znox 113 GM Tube 1 APPLIC TOPICAL (23:29)
[2023-02-25] MEDS: Acetaminophen 325 MG Tablet 650 MG PO (23:30)
[2023-02-25] MEDS: Venlafaxine HCl 75 MG Tablet PO (23:30)
[2023-02-25] MEDS: Pramipexole Di-HCl 0.5 MG Tablet 0.75 MG PO (23:31)
[2023-02-25] MEDS: Atorvastatin Calcium 40 MG Tablet PO (23:31)
[2023-02-25] MEDS: Carbidopa/Levodopa 25/100 Tablet PO (23:31)
[2023-02-25] MEDS: QUEtiapine 25 MG Tablet PO (23:31)
--- OUTSIDE RECORDS SUMMARY | 2023-02-26 01:28 | XMS RPT_ITS | CCD ---
Author Name Unknown Address [address] [place] [address] Organization [facility] Care Team Providers Care Miller Helper Name Role Phone Mee MORENO Unavailable Unavailable Mee MORENO Unavailable Unavailable ELOY GUERRA Unavailable Unavailable LITZY ALMEIDA Unavailable Unavailable ENRIQUE BAKER Unavailable Unavailable ELOY GUERRA Unavailable Unavailable Mee Moreno Unavailable Delilah Moreno Primary Care Provider LITZY PERSAUD Attending Unavailable LITZY PERSAUD Referring Unavailable Delilah MORENO Primary Care Unavailable Delilah Moreno Primary Care Provider Delilah Moreno MD Primary Care Provider SILVERIO NGUYEN Attending Unavailable Delilah MORENO Primary Care Unavailable SILVERIO NGUYEN Attending Unavailable Delilah MORENO Primary Care Unavailable SILVERIO NGUYEN Attending Unavailable Delilah MORENO Primary Care Unavailable Mee Moreno MD Primary Care Provider Jared MENDIETA, Bella Unavailable Litzy Persaud MD Unavailable Cassie MENDIETA, Adele Malik Unavailable Kennedy Avalos MD Unavailable Terrance Moseley MD Unavailable [phone] Litzy De Dios DPM Unavailable Silverio Nguyen DO Unavailable Moreno MD, R Kennedy Primary Care Provider [phone] Tiffanie MENDIETA, R Kennedy Primary Care Provider [phone] Jared MENDIETA, Bella Unavailable Hung MENDIETA, Litzy Conn Unavailable [phone] Cassie MENDIETA, Adele Malik Unavailable Robbie MENDIETA, Kennedy M Unavailable [phone] Pradip MENDIETA, Terrance Tyson Unavailable [phone] Lanre HERNANDEZ, Litzy Bonilla Unavailable [phone] [place] Silverio LOBATO Unavailable CASSIE, ADELE L Attending Unavailable MORENO, R KENNEDY Primary Care Unavailable CASSIE, ADELE L Referring Unavailable MORENO, R KENNEDY Primary Care Unavailable CASSIE, ADELE L Referring Unavailable CASSIE, ADELE L Attending Unavailable CASSIE, ADELE L Referring Unavailable CASSIE, ADELE L Attending Unavailable MORENO, R KENNEDY Primary Care Unavailable CASSIE, ADELE L Referring Unavailable MORENO, R KENNEDY Primary Care Unavailable CASSIE, ADELE L Attending Unavailable MORENO, R KENNEDY Referring Unavailable KADEN-CIANFLONE, TOÑO Attending Unavailabl e MORENO, R KENNEDY Primary Care Unavailable MORENO, R KENNEDY Primary Care Unavailable CASSIE, ADELE L Attending Unavailable CASSIE, ADELE L Referring Unavailable MORENO, R KENNEDY Referring Unavailable KADEN-CIANFLONE, TOÑO Attending Unavailabl e MORENO, R KENNEDY Primary Care Unavailable CASSIE, ADELE L Attending Unavailable MORENO, R KENNEDY Primary Care Unavailable CASSIE, ADELE L Referring Unavailable CASSIE, ADELE L Referring Unavailable MORENO, R KENNEDY Primary Care Unavailable CASSIE, ADELE L Attending Unavailable CASSIE, ADELE L Referring Unavailable MORENO, R KENNEDY Primary Care Unavailable CASSIE, ADELE L Attending Unavailable MORENO, R KENNEDY Primary Care Unavailable CASSIE, ADELE L Attending Unavailable CASSIE, ADELE L Referring Unavailable KADEN-CIANFLONE, TOÑO Attending Unavailabl e KADEN-CIANFLONE, TOÑO Referring Unavailabl e MORENO, R KENNEDY Primary Care Unavailable CASSIE, ADELE L Attending Unavailable MORENO, R KENNEDY Primary Care Unavailable CASSIE, ADELE L Referring Unavailable CASSIE, ADELE L Attending Unavailable MORENO, R KENNEDY Primary Care Unavailable CASSIE, ADELE L Referring Unavailable MORENO, R KENNEDY Primary Care Unavailable CASSIE, ADELE L Referring Unavailable CASSIE, ADELE L Attending Unavailable MORENO, R KENNEDY Primary Care Unavailable CASSIE, ADELE L Referring Unavailable CASSIE, ADELE L Attending Unavailable RITO, DEBBIE Referring Unavailable RITO, DEBBIE Attending Unavailable MORENO, R KENNEDY Primary Care Unavailable MORENO, R KENNEDY Referring Unavailable KADEN-CIANFLONE, TOÑO Attending Unavailabl e MORENO, R KENNEDY Primary Care Unavailable RITO, DEBBIE Referring Unavailable RITO, DEBBIE Attending Unavailable MORENO, R KENNEDY Primary Care Unavailable MORENO, R KENNEDY Referring Unavailable KADEN-CIANFLONE, TOÑO Attending Unavailabl e MORENO, R KENNEDY Primary Care Unavailable MORENO, R KENNEDY Referring Unavailable KADEN-CIANFLONE, TOÑO Attending Unavailabl e MORENO, R KENNEDY Primary Care Unavailable CASSIE, ADELE L Referring Unavailable CASSIE, ADELE L Attending Unavailable MORENO, R KENNEDY Primary Care Unavailable MORENO, R KENNEDY Primary Care Unavailable RITO, DEBBIE Attending Unavailable RITO, DEBBIE Referring Unavailable CHAPPELLYANNA Attending Unavailable IKER LERMA Referring Unavailable MORENO, R KENNEDY Primary Care Unavailable CASSIE, ADELE L Attending Unavailable MORENO, R KENNEDY Primary Care Unavailable CASSIE, ADELE L Referring Unavailable MORENO, R KENNEDY Attending Unavailable MORENO, R KENNEDY Referring Unavailable MORENO, R KENNEDY Primary Care Unavailable MORENO, R KENNEDY Referring Unavailable KADEN-CIANFLONE, TOÑO Attending Unavailabl e MORENO, R KENNEDY Primary Care Unavailable CASSIE, ADELE L Attending Unavailable MORENO, R KENNEDY Primary Care Unavailable CASSIE, ADELE L Referring Unavailable CASSIE, ADELE L Attending Unavailable MORENO, R KENNEDY Primary Care Unavailable CASSIE, ADELE L Referring Unavailable Lanaomieer OD, Natalie J Unavailable [phone] Mee Moreno MD Primary Care Provider BELLA COLEMAN Attending Unavailable AHMAD, BELLA Referring Unavailable MORENO, R KENNEDY Primary Care Unavailable SELF, SELF Referring Unavailable AHMADANGELAR Attending Unavailable MORENO, R KENNEDY Primary Care Unavailable YANNA CHAPPELL Attending Unavailable CHAPPELLYANNA Referring Unavailable MORENO, R KENNEDY Primary Care Unavailable MORENO, R KENNEDY Referring Unavailable KADEN, TOÑO Attending Unavailable MORENO, R KENNEDY Primary Care Unavailable BELLA COLEMAN Attending Unavailable SELF, SELF Referring Unavailable OMRENO, R KENNEDY Primary Care Unavailable Jared MENDIETA, Bella Unavailable Tiffanie MENDIETA, R Kennedy Primary Care Provider [phone] Jared MENDIETA, Bella Unavailable Litzy Persaud MD Unavailable Cassie MENDIETA, Adele Malik Unavailable Robbie MENDIETA, Kennedy Bond Unavailable Pradip MENDIETA, Terrance J Unavailable Litzy De Dios DPM Unavailable [phone] [place] DO, Silverio Unavailable Sylviachristopheragustina OD, Natalie J Unavailable [phone] MORENO, R KENNEDY Attending Unavailable MORENO, R KENNEDY Referring Unavailable MORENO, R KENNEDY Primary Care Unavailable MORENO, R KENNEDY Referring Unavailable MORENO, R KENNEDY Primary Care Unavailable DEBBIE VERAS Attending Unavailable TOÑO KELLEY Attending Unavailable MORENO, R KENNEDY Referring Unavailable MORENO, R KENNEDY Primary Care Unavailable LITZY DE DIOS Attending Unavailable KADEN, TOÑO F Referring Unavailable MORENO, R KENNEDY Primary Care Unavailable SELF, SELF Referring Unavailable MORENO, R KENNEDY Primary Care Unavailable MORENO, R KENNEDY Attending Unavailable RITO, DEBBIE Attending Unavailable MORENO, R KENNEDY Primary Care Unavailable MORENO, R KENNEDY Referring Unavailable MORENO, R KENNEDY Primary Care Unavailable MORENO, R KENNEDY Attending Unavailable MORENO, R KENNEDY Referring Unavailable MORENO, R KENNEDY Primary Care Unavailable MORENO, R KENNEDY Primary Care Unavailable Carol Gutierrez MD Primary Care Provider CAROL GUTIERREZ Attending Unavailab CAROL Arce Primary Care Unavailab MICHEAL Cam Attending Unavailable CAROL GUTIERREZ Referring Unavailab CAROL Arce Primary Care Unavailab CAROL Arce Attending Unavailab NEVAEH Granados Attending Unavailable NEVAEH KITCHEN Referring Unavailable CAROL GUTIERREZ Primary Care Unavailab CAROL Arce Primary Care Unavailab le CAROL GUTIERREZ Referring Unavailab CAROL Arce Primary Care Unavailab le CAROL GUTIERREZ Referring Unavailab le CAROL GUTIERREZ Referring Unavailab le CONY, CAROL Sales Primary Care Unavailab le CAROL GUTIERREZ Referring Unavailab CAROL Arce Primary Care Unavailab le CAROL GUTIERREZ Referring Unavailab le CAROL GUTIERREZ Primary Care Unavailab NADEEM Moreno Attending Unavailable NEVAEH KITCHEN Attending Unavailable CAROL GUTIERREZ Referring Unavailab CARLO Arce Primary Care Unavailab le CAROL GUTIERREZ Primary Care Unavailab MICHEAL Cam Attending Unavailable CAROL GUTIERREZ Attending Unavail le Allergies Allergy Classification Reported Allergen(s) Allergy Type Date of Onset Reaction(s) Facility Angiotensin Converting Enzyme (OLGA) Inhibitors (2 sources) Lisinopril Drug Allergy 06-14-19 09 Other (See Comments) [facility] HMG-CoA Reductase Inhibitors (statins) (4 sources) atorvastatin Drug Allergy 07-23-19 11 Other (See Comments) [facility] raNITIdine (2 sources) raNITIdine Drug Allergy 02-26-20 07 Other (See Comments), GI Intolerance [facility] Sulfamethoxazole / Trimethoprim (2 sources) Sulfamethoxazole / Trimethoprim Drug Allergy 08-02-19 21 Shortness Of Breath [facility] (20 sources) atorvastatin; Translations: [ATORVASTATIN] Drug Allergy 07-23-19 11 Myalgia, Intolerance [facility] [place] Work Phone: (20 sources) Lisinopril; Translations: [LISINOPRIL] Drug Allergy 06-14-19 09 Cough, Other (See Comments) [facility] [place] Work Phone: (20 sources) Pravastatin; Translations: [PRAVASTATIN] Drug Allergy 07-23-19 11 Myalgia, Other (See Comments), Intolerance [facility] [place] Work Phone: (20 sources) raNITIdine; Translations: [RANITIDINE] Drug Allergy 02-26-20 07 Nausea Only, Other (See Comments), GI Intolerance, Intolerance [facility] Work Phone: (1 source) atorvastatin Drug Allergy 07-23-19 11 Other (See Comments) [facility] (20 sources) Sulfamethoxazole / Trimethoprim; Translations: [SULFAMETHOXAZOLE-T RIMETHOPRIM] Drug Allergy 09-22-19 20 Shortness Of Breath, Hives [facility] (20 sources) Bacitracin Drug Allergy 03-05-19 21 Contact Dermatitis, Itchy Throat, Rash, Runny Nose [facility] Work Phone: (20 sources) carvedilol Drug Allergy 07-25-19 21 Dyspepsia [facility] (20 sources) hydrOXYzine Drug Allergy 10-03-19 20 Confusion [facility] (20 sources) levoFLOXacin Drug Allergy 09-24-19 20 [facility] (20 sources) NSAIDs Propensity to adverse reactions to drug 12-10-19 19 [facility] (20 sources) ubidecarenone / vitamin E Drug Allergy 01-11-20 19 Dreams, Abnormal [facility] (1 source) traMADol Drug Allergy 04-02-19 21 Abdominal Discomfort [facility] (19 sources) Penicillins Propensity to adverse reactions to drug 06-12-19 22 Rash [facility] Work Phone: (1 source) atorvastatin; Translations: [ATORVASTATIN CALCIUM] Drug Allergy 07-23-19 11 [facility] Medications Current Medications Medication Drug Class(es) Dates Sig (Normalized) Sig (Original) betamethasone 1 mg/ml topical cream (20 sources) Corticosteroid betamethasone valerate 0.1 % Cream Apply 1 Application topically 2 times daily as needed. 0 Active Blood Glucose Monitoring Suppl (Blood Glucose Monitor System) w/Device Kit (20 sources) Start: 06-19-2020 calcium carbonate 1250 mg / cholecalciferol 200 unt oral tablet (20 sources) Vitamin D Start: 12-10-2021 take 1 tablet by mouth twice daily calcium-vitamin D 500-200 MG-UNIT tablet Indications: Osteopenia of neck of left femur Take 1 tablet by mouth 2 times daily. 180 tablet 3 12/10/2021 Active Completed/Discontinued Medications Medication Drug Class(es) Dates Sig (Normalized) Sig (Original) acetaminophen 325 mg oral tablet (1 source) Start: 10-14-2020 End: 10-14-2020 acetaminophen (TYLENOL) tablet 975 mg Problems Active Problems Problem Classification Problem Date Documented Da te Episodic/Chronic Acquired foot deformities (20 sources) Hammer toe; Translations: [Other hammer toe(s) (acquired), unspecified foot] 01-15-2017 Chronic Asthma (20 sources) Reactive airway disease; Translations: [Unspecified asthma, uncomplicated] Onset: 0 04-02-2020 Chronic Cancer of prostate (20 sources) Adenocarcinoma of prostate; Translations: [Malignant neoplasm of prostate] Onset: 0 07-21-2019 Chronic Cardiac dysrhythmias (20 sources) Chronic atrial fibrillation; Translations: [Chronic atrial fibrillation, unspecified] Onset: 9 01-10-2019 Chronic Chronic ulcer of skin (2 sources) Ulcer of lower extremity Chronic Congestive heart failure; nonhypertensive (20 sources) Chronic diastolic heart failure; Translations: [Chronic diastolic (congestive) heart failure] Onset: 0 Resolved: 1 12-26-2020 Chronic Coronary atherosclerosis and other heart disease (20 sources) Preinfarction syndrome; Translations: [Unstable angina] Onset: 9 Resolved: 1 12-09-2018 Chronic Delirium, dementia, and amnestic and other cognitive disorders (10 sources) Dementia; Translations: [Unspecified dementia without behavioral disturbance] Onset: 3 10-16-2022 Chronic Diabetes mellitus with complications (20 sources) Type 1 diabetes mellitus; Translations: [Type 1 diabetes mellitus with other specified complication] Onset: 5 Resolved: 8 06-12-2020 Chronic Diabetes mellitus without complication (20 sources) Type 2 diabetes mellitus; Translations: [Secondary diabetes mellitus] Onset: 5 Resolved: 8 05-20-2017 Chronic Disorders of lipid metabolism (20 sources) Hyperlipoproteinemia; Translations: [Hypercholesterolemia] Onset: 5 Resolved: 7 01-15-2017 Chronic Essential hypertension (20 sources) Hypertensive disorder; Translations: [Benign essential hypertension] Onset: 5 Resolved: 8 05-20-2017 Chronic Genitourinary symptoms and ill-defined conditions (20 sources) Urge incontinence of urine; Translations: [Urge incontinence] Onset: 0 01-03-2021 Chronic Heart valve disorders (20 sources) Aortic valve sclerosis; Translations: [Other nonrheumatic aortic valve disorders] Onset: 8 02-15-2018 Chronic Hyperplasia of prostate (20 sources) Benign prostatic hyperplasia; Translations: [Benign prostatic hyperplasia without lower urinary tract symptoms] Onset: 0 01-15-2017 Chronic Hypertension with complications and secondary hypertension (20 sources) Hypertensive heart disease without congestive heart failure; Translations: [Hypertensive heart disease] Onset: 8 02-15-2018 Chronic Mood disorders (20 sources) Recurrent major depressive episodes, moderate ; Translations: [Depressive disorder] Onset: 6 Resolved: 0 11-23-2017 Chronic Mycoses (20 sources) Onychomycosis due to dermatophyte ; Translations: [Tinea unguium] Onset: 1 01-07-2021 Episodic Nutritional deficiencies (20 sources) Vitamin D deficiency; Translations: [Vitamin D deficiency, unspecified] Onset: 4 11-19-2016 Chronic Osteoarthritis (20 sources) Osteoarthritis of left knee joint; Translations: [Unilateral primary osteoarthritis, left knee] Onset: 9 09-27-2019 Chronic Other aftercare (2 sources) senior care (current) use of insulin; Translations: [senior care (current) use of insulin] Onset: 3 Episodic Other and ill-defined heart disease (20 sources) Cardiomegaly; Translations: [Left atrial enlargement] Onset: 8 02-15-2018 Chronic Other connective tissue disease (20 sources) History of total knee arthroplasty; Translations: [Presence of right artificial knee joint] Onset: 1 04-20-2020 Chronic Other connective tissue disease (5 sources) History of right total knee replacement; Translations: [Presence of right artificial knee joint] Chronic Other connective tissue disease (4 sources) Presence of right artificial knee joint; Translations: [Presence of right artificial knee joint] Onset: 2 Chronic Other connective tissue disease (2 sources) Pain of left hand; Translations: [Pain in left hand] Episodic Other connective tissue disease (2 sources) Pain in bilateral legs; Translations: [Pain in right leg] Episodic Other connective tissue disease (2 sources) Neuralgia and neuritis, unspecified; Translations: [Neuralgia and neuritis, unspecified] Onset: 9 Episodic Other diseases of bladder and urethra (14 sources) Overactive bladder; Translations: [Overactive bladder] Onset: 2 Chronic Other diseases of bladder and urethra (2 sources) Overactive bladder; Translations: [Overactive bladder] Onset: 2 Chronic Other diseases of kidney and ureters (1 source) Renal impairment Episodic Other diseases of veins and lymphatics (5 sources) Lymphedema of bilateral lower limbs; Translations: [Lymphedema, not elsewhere classified] Chronic Other diseases of veins and lymphatics (4 sources) Lymphedema, not elsewhere classified; Translations: [Lymphedema, not elsewhere classified] Onset: 2 Chronic Other diseases of veins and lymphatics (7 sources) Peripheral venous insufficiency; Translations: [Venous insufficiency (chronic) (peripheral)] Onset: 9 Episodic Other diseases of veins and lymphatics (2 sources) Venous insufficiency (chronic) (peripheral); Translations: [Venous insufficiency (chronic) (peripheral)] Onset: 9 Episodic Other diseases of veins and lymphatics (3 sources) Stasis dermatitis; Translations: [Venous insufficiency (chronic) (peripheral)] Episodic Other endocrine disorders (1 source) Hypoglycemia; Translations: [Hypoglycemia, unspecified] Chronic Other endocrine disorders (1 source) Hypoglycemia, unspecified; Translations: [Hypoglycemia] Onset: 3 Chronic Other eye disorders (1 source) Paralytic ptosis; Translations: [Paralytic ptosis of bilateral eyelids] Onset: 8 02-15-2018 Episodic Other gastrointestinal disorders (20 sources) Chronic idiopathic constipation; Translations: [Chronic idiopathic constipation] 10-29-2020 Chronic Other gastrointestinal disorders (2 sources) Chronic idiopathic constipation; Translations: [Chronic idiopathic constipation] Onset: 1 Chronic Other hereditary and degenerative nervous system conditions (20 sources) Restless legs; Translations: [Restless legs syndrome] Onset: 0 Resolved: 8 10-27-2017 Chronic Other hereditary and degenerative nervous system conditions (20 sources) Motor neuron disease; Translations: [Other motor neuron disease] Onset: 6 05-20-2017 Chronic Other hereditary and degenerative nervous system conditions (2 sources) Impaired cognition; Translations: [Mild cognitive impairment, so stated] Chronic Other hereditary and degenerative nervous system conditions (2 sources) Mild cognitive impairment, so stated; Translations: [Mild cognitive impairment of uncertain or unknown etiology] Onset: 3 Chronic Other nervous system disorders (20 sources) Polyneuropathy in diseases classified elsewhere; Translations: [Polyneuropathy associated with another disorder] Onset: 6 08-19-2017 Chronic Other nervous system disorders (20 sources) Metabolic encephalopathy; Translations: [Metabolic encephalopathy] Onset: 0 10-02-2019 Chronic Other nervous system disorders (2 sources) Chronic pain; Translations: [Other chronic pain] Onset: 3 Chronic Other nervous system disorders (1 source) Other chronic pain; Translations: [Other chronic pain] Onset: 3 Chronic Other nervous system disorders (4 sources) Difficulty walking; Translations: [Difficulty in walking, not elsewhere classified] Onset: 3 02-04-2023 Chronic Other non-traumatic joint disorders (1 source) Swollen ankle region; Translations: [Effusion, right ankle] Episodic Other non-traumatic joint disorders (8 sources) Pain in right knee; Translations: [Other acute pain] Onset: 2 Episodic Other non-traumatic joint disorders (3 sources) Pain in left knee; Translations: [Pain in left knee] Onset: 2 Episodic Other nutritional; endocrine; and metabolic disorders (20 sources) Obesity; Translations: [Obesity, unspecified] Onset: 0 11-19-2016 Chronic Other nutritional; endocrine; and metabolic disorders (20 sources) Obese class II; Translations: [Obesity, unspecified] Onset: 1 04-16-2020 Chronic Other screening for suspected conditions (not mental disorders or infectious disease) (20 sources) D-dimer above reference range; Translations: [Abnormal cardiovascular function] Onset: 9 01-06-2019 Episodic Other skin disorders (1 source) Actinic keratosis; Translations: [Actinic keratosis] Episodic Other skin disorders (1 source) Seborrheic keratosis; Translations: [Other seborrheic keratosis] Episodic Other skin disorders (2 sources) Asteatosis cutis; Translations: [Xerosis cutis] Episodic Other skin disorders (2 sources) Xerosis cutis; Translations: [Xerosis cutis] Onset: 3 Episodic Other upper respiratory disease (20 sources) Allergic rhinitis; Translations: [Allergic rhinitis, unspecified] 11-19-2016 Chronic Other upper respiratory disease (10 sources) Chronic rhinitis; Translations: [Chronic rhinitis] Onset: 8 06-12-2008 Chronic Parkinson`s disease (20 sources) Parkinson's disease; Translations: [Parkinson's disease] Onset: 1 02-25-2021 Chronic Phlebitis; thrombophlebitis and thromboembolism (3 sources) Phlebitis and thrombophlebitis; Translations: [Phlebitis and thrombophlebitis of lower extremities, unspecified] Onset: 9 Episodic Pulmonary heart disease (20 sources) Pulmonary hypertension; Translations: [Pulmonary hypertension, unspecified] Onset: 8 Resolved: 0 02-15-2018 Chronic Residual codes; unclassified (20 sources) Obstructive sleep apnea syndrome; Translations: [Obstructive sleep apnea (adult) (pediatric)] Onset: 6 Resolved: 8 07-22-2017 Chronic Residual codes; unclassified (20 sources) Periodic limb movement disorder; Translations: [Periodic limb movement disorder] Onset: 6 05-20-2017 Chronic Residual codes; unclassified (20 sources) Hypersomnia; Translations: [Hypersomnia, unspecified] 12-15-2016 Chronic Residual codes; unclassified (1 source) REM sleep behavior disorder; Translations: [REM sleep behavior disorder] 10-16-2022 Chronic Residual codes; unclassified (11 sources) Hypersomnia; Translations: [Hypersomnia] 12-15-2016 Episodic Short gestation; low weight; and growth retardation (1 source) Premature of ; Translations: [ , unspecified weeks of gestation] Episodic Spondylosis; intervertebral disc disorders; other back problems (11 sources) Cervical radiculopathy; Translations: [Cervical radiculopathy] Onset: 8 09-25-2017 Chronic Unclassified (1 source) Unknown / UNK(Unknown) Onset: 7 Unclassified (2 sources) Chronic atrial fibrillation, unspecified; Translations: [Chronic atrial fibrillation, unspecified] Onset: 9 Varicose veins of lower extremity (11 sources) Stasis ulcer; Translations: [Venous stasis ulcer limited to breakdown of skin without varicose veins] Onset: 8 01-07-2018 Episodic Past or Other Problems Problem Classification Problem Date Documented Da te Episodic/Chronic Acquired foot deformities (20 sources) Flat foot [pes planus] (acquired), unspecified foot; Translations: [Pes planus] Onset: 03-02-1992 Resolved: 05-20-2017 05-20-2017 Episodic Acute and unspecified renal failure (20 sources) Acute injury of kidney; Translations: [Acute kidney failure, unspecified] Onset: 09-24-2019 Resolved: 11-22-2019 11-22-2019 Episodic Cataract (20 sources) Age-related nuclear cataract, left eye; Translations: [Age-related nuclear cataract, right eye] Onset: 10-27-2016 Resolved: 11-23-2017 11-23-2017 Chronic Conditions associated with dizziness or vertigo (2 sources) Dizziness; Translations: [Dizziness and giddiness] Onset: 08-15-2022 Episodic Fracture of lower limb (20 sources) Closed fracture of shaft of fibula; Translations: [Nondisplaced transverse fracture of shaft of right fibula, initial encounter for closed fracture] Onset: 06-08-2018 08-19-2018 Episodic Genitourinary symptoms and ill-defined conditions (20 sources) Urgent desire to urinate; Translations: [Urgency of urination] Onset: 12-10-2021 Episodic Mood disorders (20 sources) Mood disorders Onset: 05-27-2021 Resolved: 05-27-2021 05-27-2021 Nausea and vomiting (1 source) Nausea; Translations: [Nausea] Episodic Other bone disease and musculoskeletal deformities (20 sources) Osteopenia; Translations: [Other specified disorders of bone density and structure, unspecified site] Onset: 11-25-2018 02-11-2021 Episodic Other bone disease and musculoskeletal deformities (4 sources) Other specified disorders of bone density and structure, left thigh; Translations: [Other specified disorders of bone density and structure, left thigh] Onset: 02-11-2021 Episodic Other connective tissue disease (20 sources) Impingement syndrome of left shoulder; Translations: [Impingement syndrome of left shoulder region] Onset: 08-14-2017 11-23-2017 Episodic Other connective tissue disease (20 sources) Neuropathic pain; Translations: [Neuralgia and neuritis, unspecified] Onset: 03-16-2018 12-22-2018 Episodic Other connective tissue disease (20 sources) Recurrent falls ; Translations: [Repeated falls] Onset: 08-19-2018 08-19-2018 Episodic Other connective tissue disease (10 sources) Ganglion cyst; Translations: [Ganglion, unspecified site] Onset: 08-03-2008 04-12-2010 Episodic Other connective tissue disease (10 sources) Chronic pain of right foot; Translations: [Pain in right foot] Onset: 01-04-2013 02-25-2021 Episodic Other diseases of veins and lymphatics (20 sources) Skin ulcer; Translations: [Venous insufficiency (chronic) (peripheral)] Onset: 01-07-2018 01-07-2018 Episodic Other diseases of veins and lymphatics (20 sources) Vascular insufficiency; Translations: [Venous insufficiency (chronic) (peripheral)] Onset: 03-08-2018 08-19-2018 Episodic Other eye disorders (20 sources) Ptosis of eyelid; Translations: [Unspecified ptosis of bilateral eyelids] Onset: 10-27-2017 Resolved: 12-22-2018 10-27-2017 Episodic Other eye disorders (20 sources) Paralytic ptosis of bilateral eyelids; Translations: [Paralytic ptosis] Onset: 12-01-2017 12-22-2018 Episodic Other gastrointestinal disorders (20 sources) Abdominal bloating; Translations: [Abdominal distension (gaseous)] Onset: 01-07-2018 01-07-2018 Episodic Other gastrointestinal disorders (12 sources) Constipation; Translations: [Constipation, unspecified] Onset: 09-30-2022 Episodic Other gastrointestinal disorders (1 source) Constipation, unspecified; Translations: [Constipation, unspecified constipation type] Onset: 09-30-2022 Episodic Other infections; including parasitic (10 sources) H/O: mumps; Translations: [Personal history of other infectious and parasitic diseases] Onset: 03-02-1958 01-21-2022 Episodic Other infections; including parasitic (10 sources) H/O: measles; Translations: [Personal history of other infectious and parasitic diseases] Onset: 03-02-1958 01-21-2022 Episodic Other infections; including parasitic (10 sources) H/O: chickenpox; Translations: [Personal history of other infectious and parasitic diseases] Onset: 03-02-1958 01-21-2022 Episodic Other lower respiratory disease (20 sources) Orthopnea; Translations: [Orthopnea] Onset: 01-07-2018 01-07-2018 Episodic Other lower respiratory disease (20 sources) Wheezing; Translations: [Wheezing] Onset: 01-07-2018 01-07-2018 Episodic Other lower respiratory disease (20 sources) Dyspnea; Translations: [Shortness of breath] Onset: 01-07-2018 01-07-2018 Episodic Other lower respiratory disease (20 sources) Restrictive lung disease; Translations: [Other disorders of lung] Onset: 01-29-2018 03-25-2018 Episodic Other lower respiratory disease (20 sources) Disorder of diaphragm; Translations: [Disorders of diaphragm] Onset: 06-23-2019 Resolved: 08-17-2019 08-17-2019 Episodic Other male genital disorders (20 sources) Phimosis; Translations: [Phimosis] Onset: 04-06-2019 04-06-2019 Episodic Other nervous system disorders (20 sources) Polyneuropathy; Translations: [Polyneuropathy, unspecified] Resolved: 05-20-2017 05-20-2017 Chronic Other nervous system disorders (20 sources) Myasthenia gravis; Translations: [Myasthenia gravis without (acute) exacerbation] Onset: 10-27-2017 Resolved: 09-26-2019 02-15-2018 Chronic Other non-traumatic joint disorders (2 sources) Effusion, right ankle; Translations: [Effusion, right ankle] Onset: 07-10-2021 Episodic Other non-traumatic joint disorders (2 sources) Effusion, right knee; Translations: [Effusion, right knee] Onset: 06-11-2021 Episodic Coretta-; endo-; and myocarditis; cardiomyopathy (except that caused by tuberculosis or sexually transmitted disease) (20 sources) Pericardial effusion; Translations: [Pericardial effusion (noninflammatory)] Onset: 01-26-2018 02-15-2018 Episodic Residual codes; unclassified (20 sources) Localized edema; Translations: [Localized edema] Onset: 01-07-2018 01-07-2018 Episodic Residual codes; unclassified (10 sources) Insomnia; Translations: [Insomnia, unspecified] Onset: 01-04-2013 01-04-2013 Episodic Skin and subcutaneous tissue infections (20 sources) Cellulitis of right lower limb; Translations: [Cellulitis of right lower limb] Onset: 08-19-2018 Resolved: 01-10-2019 01-10-2019 Episodic Spondylosis; intervertebral disc disorders; other back problems (20 sources) Chronic neck pain; Translations: [Cervical radiculopathy] Onset: 09-25-2017 10-27-2017 Episodic Unclassified (1 source) E11.65^Typ Onset: 09-01-2016 Unclassified (2 sources) Cardiac arrhythmia, unspecified cardiac arrhythmia type Unclassified (1 source) Atrial enlargement, left Unclassified (1 source) Left knee pain, unspecified chronicity Unclassified (14 sources) Onset: 05-27-2021 Resolved: 09-09-2022 05-27-2021 Results Test Name Value Interpretation Reference Range Facil ity Vital Signs Date Time Vital Sign Value Performing Clinician Faci lity 01-12-2023 09:30-0500 Diastolic blood pressure 66 mm[Hg] Carol Gutierrez MD Work Phone: [facility] 01-12-2023 09:30-0500 Heart rate 88 /min Carol Gutierrez MD Work Phone: [facility] 01-12-2023 09:30-0500 Respiratory rate 16 /min Carol Gutierrez MD Work Phone: [facility] 01-12-2023 09:30-0500 SaO2% (BldA) [Mass fraction] 99 % Carol Gutierrez MD Work Phone: [facility] 01-12-2023 09:30-0500 Systolic blood pressure 136 mm[Hg] Carol Gutierrez MD Work Phone: [facility] 11-19-2022 09:41-0400 Diastolic blood pressure 74 mm[Hg] Nevaeh Kitchen MD Work Phone: [facility] 11-19-2022 09:41-0400 Heart rate 78 /min Nevaeh Kitchen MD Work Phone: [facility] 11-19-2022 09:41-0400 Respiratory rate 16 /min Nevaeh Kitchen MD Work Phone: [facility] 11-19-2022 09:41-0400 SaO2% (BldA) [Mass fraction] 95 % Nevaeh Kitchen MD Work Phone: [facility] 11-19-2022 09:41-0400 Systolic blood pressure 142 mm[Hg] Nevaeh Kitchen MD Work Phone: [facility] 11-19-2022 07:45-0400 Body temperature 98.29 [degF] Nevaeh Kitchen MD Work Phone: [facility] 11-19-2022 07:45-0400 Body weight 119.6 kg Nevaeh Kitchen MD Work Phone: [facility] 10-21-2022 10:19-0400 Body height 182.9 cm Nevaeh Kitchen MD Work Phone: [facility] 10-21-2022 10:19-0400 Body temperature 97.9 [degF] Nevaeh Kitchen MD Work Phone: [facility] 10-21-2022 10:19-0400 Body weight 119.57 kg Nevaeh Kitchen MD Work Phone: [facility] 10-21-2022 10:19-0400 Diastolic blood pressure 78 mm[Hg] Nevaeh Kitchen MD Work Phone: [facility] 10-21-2022 10:19-0400 Heart rate 98 /min Nevaeh Kitchen MD Work Phone: [facility] 10-21-2022 10:19-0400 SaO2% (BldA) [Mass fraction] 99 % Nevaeh Kitchen MD Work Phone: [facility] 10-21-2022 10:19-0400 Systolic blood pressure 140 mm[Hg] Nevaeh Kitchen MD Work Phone: [facility] 10-16-2022 13:010400 Body height 182.9 cm Micheal Perez MD Work Phone: [facility] 10-16-2022 13:01-0400 Body weight 121.52 kg Micheal Perez MD Work Phone: [facility] 10-16-2022 13:01-0400 SaO2% (BldA) [Mass fraction] 98 % Micheal Perez MD Work Phone: [facility] 09-09-2022 14:49-0400 Body height 182.9 cm Litzy De Dios DPM Work Phone: [facility] 09-09-2022 14:49-0400 Body mass index (BMI) [Ratio] 36.08 kg/m2 Litzy De Dios DPM Work Phone: [facility] 09-09-2022 14:49-0400 Body weight 120.66 kg Litzy De Dios DPM Work Phone: [facility] 09-09-2022 14:49-0400 Diastolic blood pressure 90 mm[Hg] Litzy De Dios DPM Work Phone: [facility] 09-09-2022 14:49-0400 Heart rate 80 /min Litzy De Dios DPM Work Phone: [facility] 09-09-2022 14:49-0400 Systolic blood pressure 170 mm[Hg] Litzy De Dios DPM Work Phone: [facility] 08-29-2022 11:01-0400 Body height 182.9 cm Toño Kelley MD Work Phone: [facility] 08-29-2022 11:01-0400 Body mass index (BMI) [Ratio] 36.16 kg/m2 Toño Kelley MD Work Phone: [facility] 08-29-2022 11:01-0400 Body temperature 96.69 [degF] Toño Kelley MD Work Phone: [facility] 08-29-2022 11:01-0400 Body weight 120.93 kg Toño Kelley MD Work Phone: [facility] 08-29-2022 11:01-0400 Diastolic blood pressure 68 mm[Hg] Toño Kelley MD Work Phone: [facility] 08-29-2022 11:01-0400 Heart rate 84 /min Toño Kelley MD Work Phone: [facility] 08-29-2022 11:01-0400 Respiratory rate 18 /min Toño Kelley MD Work Phone: [facility] 08-29-2022 11:01-0400 SaO2% (BldA) [Mass fraction] 96 % Toño Kelley MD Work Phone: [facility] 08-29-2022 11:01-0400 Systolic blood pressure 150 mm[Hg] Toño Kelley MD Work Phone: [facility] 08-15-2022 09:02-0400 Body temperature 98.1 [degF] Carol Gutierrez MD Work Phone: [facility] 08-15-2022 09:02-0400 Body weight 120.66 kg Carol Gutierrez MD Work Phone: [facility] 08-15-2022 09:02-0400 Diastolic blood pressure 70 mm[Hg] Carol Gutierrez MD Work Phone: [facility] 08-15-2022 09:02-0400 Heart rate 78 /min Carol Gutierrez MD Work Phone: [facility] 08-15-2022 09:02-0400 Respiratory rate 16 /min Carol Gutierrez MD Work Phone: [facility] 08-15-2022 09:02-0400 SaO2% (BldA) [Mass fraction] 95 % Carol Gutierrez MD Work Phone: [facility] 08-15-2022 09:02-0400 Systolic blood pressure 118 mm[Hg] Carol Gutierrez MD Work Phone: [facility] 06-19-2022 09:39-0400 Body height 182.9 cm Debbie Veras CNP Work Phone: [facility] 06-19-2022 09:39-0400 Body mass index (BMI) [Ratio] 35.8 kg/m2 Debbie Veras CNP Work Phone: [facility] 06-19-2022 09:39-0400 Body weight 119.75 kg Debbie Veras CNP Work Phone: [facility] 06-19-2022 09:39-0400 Diastolic blood pressure 70 mm[Hg] Debbie Veras CNP Work Phone: [facility] 06-19-2022 09:39-0400 Heart rate 84 /min Debbie Veras CNP Work Phone: [facility] 06-19-2022 09:39-0400 SaO2% (BldA) [Mass fraction] 97 % Debbie Veras CNP Work Phone: [facility] 06-19-2022 09:39-0400 Systolic blood pressure 132 mm[Hg] Debbie Veras CNP Work Phone: [facility] 05-23-2022 13:41-0400 Body height 182.9 cm Bella Coleman MD Work Phone: [facility] 05-23-2022 13:41-0400 Body mass index (BMI) [Ratio] 36.35 kg/m2 Bella Coleman MD Work Phone: [facility] 05-23-2022 13:41-0400 Body weight 121.56 kg Bella Coleman MD Work Phone: [facility] 05-23-2022 13:41-0400 Diastolic blood pressure 81 mm[Hg] Bella Coleman MD Work Phone: [facility] [employer] [facility] 05-23-2022 13:41-0400 Heart rate 92 /min Bella Coleman MD Work Phone: [employer] [facility] 05-23-2022 13:41-0400 SaO2% (BldA) [Mass fraction] 98 % Bella Coleman MD Work Phone: [employer] [facility] 05-23-2022 13:41-0400 Systolic blood pressure 145 mm[Hg] Bella Coleman MD Work Phone: [employer] [facility] 05-20-2022 13:47-0400 Body height 182.9 cm KT Moreno MD Work Phone: [employer] [facility] 05-20-2022 13:47-0400 Body mass index (BMI) [Ratio] 35.93 kg/m2 KT Moreno MD Work Phone: [employer] [facility] 05-20-2022 13:47-0400 Body temperature 97.5 [degF] KT Moreno MD Work Phone: [employer] [facility] 05-20-2022 13:47-0400 Body weight 120.2 kg KT Moreno MD Work Phone: [employer] [facility] 05-20-2022 13:47-0400 Diastolic blood pressure 68 mm[Hg] KT Moreno MD Work Phone: [employer] [facility] 05-20-2022 13:47-0400 Heart rate 96 /min KT Moreno MD Work Phone: [employer] [facility] 05-20-2022 13:47-0400 Respiratory rate 16 /min KT Moreno MD Work Phone: [employer] [facility] 05-20-2022 13:47-0400 SaO2% (BldA) [Mass fraction] 97 % KT Moreno MD Work Phone: [employer] [facility] 05-20-2022 13:47-0400 Systolic blood pressure 132 mm[Hg] KT Moreno MD Work Phone: [facility] 05-07-2022 10:53-0500 Body height 182.9 cm Toño Kelley MD Work Phone: [facility] 05-07-2022 10:53-0500 Body mass index (BMI) [Ratio] 35.98 kg/m2 Toño Kelley MD Work Phone: [facility] 05-07-2022 10:53-0500 Body temperature 97.39 [degF] Toño Kelley MD Work Phone: [facility] 05-07-2022 10:53-0500 Body weight 120.34 kg Toño Kelley MD Work Phone: [facility] 05-07-2022 10:53-0500 Diastolic blood pressure 80 mm[Hg] Toño Kelley MD Work Phone: [facility] 05-07-2022 10:53-0500 Heart rate 85 /min Toño Kelley MD Work Phone: [facility] 05-07-2022 10:53-0500 Respiratory rate 14 /min Toño Kelley MD Work Phone: [facility] 05-07-2022 10:53-0500 SaO2% (BldA) [Mass fraction] 98 % Toño Kelley MD Work Phone: [facility] 05-07-2022 10:53-0500 Systolic blood pressure 136 mm[Hg] Toño Kelley MD Work Phone: [facility] 02-04-2022 10:58-0500 Body height 182.9 cm Toño Kelley MD Work Phone: [facility] 02-04-2022 10:58-0500 Body mass index (BMI) [Ratio] 35.72 kg/m2 Toño Kelley MD Work Phone: [facility] 02-04-2022 10:58-0500 Body temperature 98.4 [degF] Toño Kelley MD Work Phone: [facility] 02-04-2022 10:58-0500 Body weight 119.48 kg Toño Kelley MD Work Phone: [facility] 02-04-2022 10:58-0500 Diastolic blood pressure 82 mm[Hg] Toño Kelley MD Work Phone: [facility] 02-04-2022 10:58-0500 Heart rate 83 /min Toño Kelley MD Work Phone: [facility] 02-04-2022 10:58-0500 Respiratory rate 14 /min Toño Kelley MD Work Phone: [facility] 02-04-2022 10:58-0500 SaO2% (BldA) [Mass fraction] 97 % Toño Kelley MD Work Phone: [facility] 02-04-2022 10:58-0500 Systolic blood pressure 126 mm[Hg] Toño Kelley MD Work Phone: [facility] 01-31-2022 12:56-0500 Body height 182.9 cm Yannakristopher Chappell [employer] Work Phone: [facility] 01-31-2022 12:56-0500 Body mass index (BMI) [Ratio] 35.67 kg/m2 Yannakristopher Aguilarton [employer] Work Phone: [facility] 01-31-2022 12:56-0500 Body weight 119.3 kg Yannakristopher Aguilarton [employer] Work Phone: [facility] 01-31-2022 12:56-0500 Respiratory rate 18 /min Yannakristopher Aguilarton [employer] Work Phone: [facility] 01-31-2022 12:56-0500 SaO2% (BldA) [Mass fraction] 98 % Yannakristopher Aguilarton [employer] Work Phone: [facility] 01-21-2022 13:07-0500 Body height 182.9 cm KT Moreno MD Work Phone: [facility] 01-21-2022 13:07-0500 Body mass index (BMI) [Ratio] 35.66 kg/m2 KT Moreno MD Work Phone: [employer] [facility] 01-21-2022 13:07-0500 Body temperature 97.59 [degF] KT Moreno MD Work Phone: [facility] [facility] 01-21-2022 13:07-0500 Body weight 119.3 kg KT Moreno MD Work Phone: [employer] [facility] 01-21-2022 13:07-0500 Diastolic blood pressure 64 mm[Hg] KT Moreno MD Work Phone: [employer] [facility] 01-21-2022 13:07-0500 Heart rate 84 /min KT Moreno MD Work Phone: [employer] [facility] 01-21-2022 13:07-0500 Respiratory rate 18 /min KT Moreno MD Work Phone: [employer] [facility] 01-21-2022 13:07-0500 SaO2% (BldA) [Mass fraction] 94 % KT Moreno MD Work Phone: [employer] 01-21-2022 13:07-0500 Systolic blood pressure 124 mm[Hg] KT Moreno MD Work Phone: [employer] [facility] 12-23-2021 11:32-0400 Body height 182.9 cm Debbie Camarillotie [employer] Work Phone: [employer] [facility] 12-23-2021 11:32-0400 Body mass index (BMI) [Ratio] 34.71 kg/m2 Debbie Rito [employer] Work Phone: [employer] [facility] 12-23-2021 11:32-0400 Body weight 116.12 kg Debbie [place] [employer] Work Phone: [employer] [facility] 12-23-2021 11:32-0400 Diastolic blood pressure 68 mm[Hg] Debbie [place] [employer] Work Phone: [employer] [facility] 12-23-2021 11:32-0400 Heart rate 92 /min Debbie Rito [employer] Work Phone: [employer] [facility] 12-23-2021 11:32-0400 Respiratory rate 18 /min Debbie Veras CNP Work Phone: [employer] [facility] 12-23-2021 11:32-0400 SaO2% (BldA) [Mass fraction] 96 % Debbie Veras CNP Work Phone: [employer] [facility] 12-23-2021 11:32-0400 Systolic blood pressure 116 mm[Hg] Debbie Veras CNP Work Phone: [facility] [facility] 12-10-2021 14:26-0400 Body height 182.9 cm KT Moreno MD Work Phone: [facility] [facility] 12-10-2021 14:26-0400 Body mass index (BMI) [Ratio] 35.12 kg/m2 KT Moreno MD Work Phone: [facility] [facility] 12-10-2021 14:26-0400 Body temperature 97.5 [degF] KT Moreno MD Work Phone: [employer] 12-10-2021 14:26-0400 Body weight 117.48 kg KT Moreno MD Work Phone: [facility] [facility] 12-10-2021 14:26-0400 Diastolic blood pressure 76 mm[Hg] KT Moreno MD Work Phone: [employer] [facility] 12-10-2021 14:26-0400 Heart rate 88 /min KT Moreno MD Work Phone: [employer] [facility] 12-10-2021 14:26-0400 Respiratory rate 14 /min KT Moreno MD Work Phone: [employer] [facility] 12-10-2021 14:26-0400 SaO2% (BldA) [Mass fraction] 97 % KT Moreno MD Work Phone: [employer] [facility] 12-10-2021 14:26-0400 Systolic blood pressure 122 mm[Hg] KT Moreno MD Work Phone: [facility] 12-03-2021 10:51-0400 Body height 182.9 cm Toño Kelley MD Work Phone: [facility] 12-03-2021 10:51-0400 Body mass index (BMI) [Ratio] 35.8 kg/m2 Toño Kelley MD Work Phone: [facility] 12-03-2021 10:51-0400 Body temperature 97.5 [degF] Toño Kelley MD Work Phone: [facility] 12-03-2021 10:51-0400 Body weight 119.75 kg Toño Kelley MD Work Phone: [facility] 12-03-2021 10:51-0400 Diastolic blood pressure 92 mm[Hg] Toño Kelley MD Work Phone: [facility] 12-03-2021 10:51-0400 Heart rate 80 /min Toño Kelley MD Work Phone: [facility] 12-03-2021 10:51-0400 Respiratory rate 14 /min Toño Kelley MD Work Phone: [facility] 12-03-2021 10:51-0400 SaO2% (BldA) [Mass fraction] 96 % Toño Kelley MD Work Phone: [facility] 12-03-2021 10:51-0400 Systolic blood pressure 124 mm[Hg] Toño Kelley MD Work Phone: [facility] 11-26-2021 10:44-0400 Body height 182.9 cm Bella Coleman MD Work Phone: [facility] 11-26-2021 10:44-0400 Body mass index (BMI) [Ratio] 35.83 kg/m2 Bella Coleman MD Work Phone: [facility] 11-26-2021 10:44-0400 Body weight 119.84 kg Bella Coleman MD Work Phone: [facility] 11-26-2021 10:44-0400 Diastolic blood pressure 88 mm[Hg] Bella Coleman MD Work Phone: [facility] 11-26-2021 10:44-0400 Heart rate 75 /min Bella Coleman MD Work Phone: [facility] 11-26-2021 10:44-0400 SaO2% (BldA) [Mass fraction] 95 % Bella Coleman MD Work Phone: [facility] 11-26-2021 10:44-0400 Systolic blood pressure 148 mm[Hg] Bella Coleman MD Work Phone: [facility] 09-24-2021 10:09-0400 Body height 182.9 cm Toño Kelley MD Work Phone: [facility] 09-24-2021 10:09-0400 Body mass index (BMI) [Ratio] 36.62 kg/m2 Toño Kelley MD Work Phone: [facility] 09-24-2021 10:09-0400 Body temperature 97.5 [degF] Toño Kelley MD Work Phone: [facility] 09-24-2021 10:09-0400 Body weight 122.47 kg Toño Kelley MD Work Phone: [facility] 09-24-2021 10:09-0400 Diastolic blood pressure 80 mm[Hg] Toño Kelley MD Work Phone: [facility] 09-24-2021 10:09-0400 Heart rate 83 /min Toño Kelley MD Work Phone: [facility] 09-24-2021 10:09-0400 SaO2% (BldA) [Mass fraction] 98 % Toño Kelley MD Work Phone: [facility] 09-24-2021 10:09-0400 Systolic blood pressure 140 mm[Hg] Toño Kelley MD Work Phone: [facility] 08-26-2021 10:53-0400 Body height 182.9 cm Yanna Chappell [employer] Work Phone: [facility] 08-26-2021 10:53-0400 Body mass index (BMI) [Ratio] 36.62 kg/m2 Yanna Chappell [employer] Work Phone: [facility] 08-26-2021 10:53-0400 Body weight 122.47 kg Yanna Chappell [employer] Work Phone: [facility] 08-26-2021 10:53-0400 Respiratory rate 18 /min Yanna Chappell [employer] Work Phone: [facility] 08-14-2021 10:02-0400 Body height 182.9 cm Adele Matthews MD Work Phone: [facility] 08-14-2021 10:02-0400 Body mass index (BMI) [Ratio] 36.62 kg/m2 Adele Matthews MD Work Phone: [facility] 08-14-2021 10:02-0400 Body weight 122.5 kg Adele Matthews MD Work Phone: [facility] 08-14-2021 10:02-0400 Respiratory rate 18 /min Adele Matthews MD Work Phone: [facility] 06-19-2021 10:19-0400 Body height 182.9 cm Debbie Veras [employer] Work Phone: [facility] 06-19-2021 10:19-0400 Body mass index (BMI) [Ratio] 36.69 kg/m2 Debbie [place] [employer] Work Phone: [facility] 06-19-2021 10:19-0400 Body weight 122.74 kg Debbie Rito [employer] Work Phone: [facility] 06-19-2021 10:19-0400 Diastolic blood pressure 81 mm[Hg] Debbie Rito [employer] Work Phone: [facility] 06-19-2021 10:19-0400 Heart rate 88 /min Debbie Veras [employer] [facility] 06-19-2021 10:19-0400 Systolic blood pressure 161 mm[Hg] Debbie Veras [employer] [facility] 06-11-2021 12:27-0400 Body height 182.9 cm Adele Matthews MD Work Phone: [facility] [employer] [facility] 06-11-2021 12:27-0400 Body mass index (BMI) [Ratio] 37.16 kg/m2 Adele Matthews MD Work Phone: [employer] [facility] [facility] 06-11-2021 12:27-0400 Body weight 124.3 kg Adele Matthews MD Work Phone: [employer] [facility] 06-11-2021 12:27-0400 Respiratory rate 18 /min Adele Matthews MD [facility]: [facility] 05-29-2021 09:29-0400 Body height 182.9 cm Adele Matthews MD Work Phone: [employer] [facility] 05-29-2021 09:29-0400 Body mass index (BMI) [Ratio] 36.74 kg/m2 Adele Matthews MD Work Phone: [employer] [facility] 05-29-2021 09:29-0400 Body weight 122.9 kg Adele Matthews MD Work Phone: [employer] [facility] 05-29-2021 09:29-0400 Respiratory rate 14 /min Adele Matthews MD Work Phone: [employer] [facility] 05-27-2021 09:17-0400 Body mass index (BMI) [Ratio] 36.84 kg/m2 Natalie Moreno MD Work Phone: [employer] [facility] 05-27-2021 09:17-0400 Body temperature 97.59 [degF] Natalie Moreno MD Work Phone: [employer] [facility] 05-27-2021 09:17-0400 Body weight 123.2 kg Natalie Moreno MD Work Phone: [employer] 05-27-2021 09:17-0400 Diastolic blood pressure 68 mm[Hg] Natalie Moreno MD Work Phone: [employer] 05-27-2021 09:17-0400 Heart rate 90 /min Natalie Moreno MD Work Phone: [employer] 05-27-2021 09:17-0400 SaO2% (BldA) [Mass fraction] 92 % Natalie Moreno MD Work Phone: [employer] 05-27-2021 09:17-0400 Systolic blood pressure 142 mm[Hg] Natalie Moreno MD Work Phone: [employer] [facility] 10-14-2020 12:58-0400 Diastolic blood pressure 64 mm[Hg] Sukumar Foskey DO Work Phone: [employer] [facility] 10-14-2020 12:58-0400 Heart rate 73 /min Sukumar Foskey DO Work Phone: [employer] 10-14-2020 12:58-0400 Respiratory rate 16 /min Sukumar Foskey DO Work Phone: [employer] [facility] 10-14-2020 12:58-0400 SaO2% (BldA) [Mass fraction] 96 % Sukumar Foskey DO Work Phone: [employer] [facility] 10-14-2020 12:58-0400 Systolic blood pressure 133 mm[Hg] Sukumar Foskey DO Work Phone: [employer] [facility] 10-14-2020 11:00-0400 Body mass index (BMI) [Ratio] 36.07 kg/m2 Sukumar Foskey DO Work Phone: [employer] [facility] 10-14-2020 11:00-0400 Body temperature 97.81 [degF] Sukumar Foskey DO Work Phone: [employer] 10-14-2020 11:00-0400 Body weight 120.66 kg Sukumar Roberts DO Work Phone: [employer] 02-15-2018 13:30-0500 BMI (Body Mass Index) 38.3 kg/m2 NA [facility] Work Phone: 02-15-2018 13:30-0500 BP Diastolic 78 mm[Hg] NA [facility] Work Phone: 02-15-2018 13:30-0500 BP Systolic 132 mm[Hg] NA [facility] Work Phone: 02-15-2018 13:30-0500 Pulse (Heart Rate) 75 /min NA [facility] Work Phone: 02-15-2018 13:30-0500 Pulse Oximetry 95 % NA [facility] Work Phone: 02-15-2018 13:30-0500 Weight 128.1 kg NA [facility] Work Phone: 01-25-2018 14:35-0500 BMI (Body Mass Index) 39.17 kg/m2 [facility] Work Phone: 01-25-2018 14:35-0500 BP Diastolic 64 mm[Hg] NA [facility] Work Phone: 01-25-2018 14:35-0500 BP Systolic 128 mm[Hg] NA [facility] Work Phone: 01-25-2018 14:35-0500 Pulse (Heart Rate) 92 /min [facility] Work Phone: 01-25-2018 14:35-0500 Pulse Oximetry 97 % [facility] Work Phone: 01-25-2018 14:35-0500 Weight 131 kg NA [facility] Work Phone: Encounters Encounter Date Encounter Type Care Provider Facility Start: 02-16-2023 End: 02-16-2023 ambulatory CAROL GUTIERREZ Facility:[facility] Start: 02-13-2023 End: 02-13-2023 ambulatory CAROL GUTIERREZ Facility:[facility] Start: 02-13-2023 End: 02-13-2023 ambulatory Taylor Salguero PTA Work Phone: [facility] Physical Therapy Procedures Date Procedure Procedure Detail Performing Clinician Start: 11-19-2022 Gluc bld gluc mntr dev cleared fda spec home use Nevaeh Kitchen MD Work Phone: Start: 11-19-2022 Colonoscopy flx dx w/collj spec when pfrmd Nevaeh Kitchen MD Work Phone: Start: 11-19-2022 Colonoscopy Brooke Dopart Start: 09-01-2022 Hemoglobin A1c/Hemoglobin.total in Blood Piedad Ruggiero APRN.[employer] Work Phone: Start: 08-15-2022 Gluc bld gluc mntr dev cleared fda spec home use Carol Gutierrez MD Work Phone: Start: 06-19-2022 Continuous glucose monitoring analysis i&r Debbie Veras CNP Work Phone: Start: 04-23-2022 URINE ALBUMIN W/CREAT RATIO Debbie Gaby yee [employer] Work Phone: Start: 01-31-2022 Urnls dip stick/tablet rgnt auto w/o microscopy Yanna Chappell [employer] Work Phone: Start: 12-23-2021 Continuous glucose monitoring analysis i&r Debbie Veras CNP Work Phone: Start: 08-26-2021 Urnls dip stick/tablet rgnt auto w/o microscopy Yanna Chappell [employer] Work Phone: Start: 08-14-2021 Arthrocentesis aspir&/inj small jt/bursa w/o us Adele Matthews MD Work Phone: Start: 06-19-2021 Continuous glucose monitoring analysis i&r Debbie Veras CNP Work Phone: Start: 06-14-2021 Dxa bone density study 1/> sites axial skel Mee Moreno MD Work Phone: Start: 10-14-2020 Ct abdomen & pelvis w/o contrast material Sukumar A Foskey DO Work Phone: Start: 10-14-2020 End: 10-14-2020 Albumin serum plasma/whole blood Sukumar A Foskey DO Work Phone: Start: 10-14-2020 Complete blood count with white cell differential, automated Sukumar A Foskey DO Work Phone: Start: 06-19-2020 Ophthalmic examination and evaluation Silverio Nguyen Jr. DO Work Phone: Start: 06-07-2018 Dup-scan xtr veins complete bilateral study Litzy Persaud Work Phone: Start: 01-29-2018 End: 01-29-2018 PFT COMPLETE Mee Moreno Work Phone: Start: 01-25-2018 End: 01-25-2018 Electrocardiogram Historical Provider Start: 01-13-2018 End: 01-13-2018 Duplex scan of lower limb veins Mee Moreno Work Phone: Start: 01-13-2018 End: 01-13-2018 Diagnostic radiography of chest, combined PA and lateral Mee Moreno Work Phone: Start: 01-07-2018 End: 01-07-2018 Electrocardiogram Historical Provider Start: 08-25-2013 Colonoscopy Carol Gutierrez MD Work Phone: Plan of Treatment Date Care Activity Detail Author Start: 11-19-2032 Colonoscopy Colonoscopy [facility] Start: 11-19-2032 Colorectal Cancer Screening Colorectal Cancer Screening [facility] Start: 11-19-2032 Screening for malign ant neoplasm of colon [facility] Start: 11-20-2027 Colonoscopy Colonoscopy [facility] Start: 11-20-2027 Colorectal Cancer Screening Colorectal Cancer Screening [facility] Start: 11-21-2025 Tetanus vaccination [facility] Start: 03-02-2025 Third diphtheria, tetanus and acellular pertussis (DTaP) vaccination TDAP (ADULT) [facility] Immunizations Immunization Date Immunization Notes Care Provider Areli howell 01-21-2022 influenza virus vaccine, unspecified formulation Litzy De Dios DPM Work Phone: [facility] 03-02-2021 COVID-19 vaccine, MR NA, Pfizer, 0.3 ML Natalie Moreno MD Work Phone: [facility] 11-26-2020 influenza virus vaccine, unspecified formulation Toño Kelley MD Work Phone: [facility] 07-12-2020 COVID-19 vaccine, mR NA, Moderna 0.5 ML Natalie Mroeno MD Work Phone: [facility] 06-14-2020 COVID-19 vaccine, mR NA, Moderna 0.5 ML Natalie Moreno MD Work Phone: [facility] 01-07-2018 influenza virus vaccine, unspecified formulation Sukumar Roberts DO Work Phone: [facility] 04-22-2017 pneumococcal polysaccharide vaccine, 23 valent; Translations: [PNEUMOCOCCAL POLYSAC 23-VALENT VACCINE] Historical Provider [facility] 11-22-2015 pneumococcal conjuga te vaccine, 13 valent Historical Provider [facility] Work Phone: 11-22-2015 tetanus and diphther ia toxoids, adsorbed, preservative free, for adult use (2 Lf of tetanus toxoid and 2 Lf of diphtheria toxoid) Historical Provider [facility] Work Phone: 01-10-2006 influenza virus vaccine, unspecified formulation Carol Gutierrez MD Work Phone: [facility] Work Phone: 01-13-2004 tetanus and diphther ia toxoids, adsorbed, preservative free, for adult use (2 Lf of tetanus toxoid and 2 Lf of diphtheria toxoid) Sukumar Roberts DO Work Phone: [facility] 01-08-1994 hepatitis B vaccine, unspecified formulation Natalie Moreno MD Work Phone: [facility] 07-12-1993 hepatitis B vaccine, unspecified formulation Natalie Moreno MD Work Phone: [facility] 06-12-1993 hepatitis B vaccine, unspecified formulation Natalie Moreno MD Work Phone: [facility] Payers Date Payer Category Payer Medicare [id number] 2021 Medicare [id number] 2018 Medicare [employer] [facility] MEDICARE PLAN (PPO) xxxxxxxx 2018-Present xxxxxxxx [id number] 2016 Medicare [id number] 2006 Medicare [id number] 1950 Unknown [id number] 2.16.840.1.955415.3.579.2. 1950 Unknown [id number] 2.16.840.1.234713.3.579.2.90 1950 Unknown [id number] 2.16.840.1.423472.3.579.2.90 1950 Unknown [id number] 2.16.840.1.677378.3.579.2.903 1950 Unknown [id number] 2.16.840.1.037916.3.579.2.983 1950 Unknown [id number] 2.16.840.1.063679.3.579.2.98 1950 Unknown [id number] 2.16.840.1.782982.3.579.2.983 1950 Unknown [id number] 2.16.840.1.857592.3.579.2.98 1950 Unknown [id number] 2.16.840.1.692357.3.579.2.98 1950 Unknown [id number] 2.16.840.1.937305.3.579.2. 1950 Unknown [id number] 2.16.840.1.782698.3.579.2. 1950 Unknown [id number] 2.16.840.1.796428.3.579.2. 1950 Unknown [id number] 2.16.840.1.851030.3.579.2.98 1950 Unknown [id number] 2.16.840.1.908718.3.579.2. 1950 Unknown [id number] 2.16.840.1.258443.3.579.2. 1950 Unknown [id number] 2.16.840.1.116840.3.579.2.98 1950 Unknown [id number] 2.16.840.1.706116.3.579.2.98 1950 Unknown [id number] 2.16.840.1.768103.3.579.2.98 1950 Unknown [id number] 2.16.840.1.084723.3.579.2.98 1950 Unknown [id number] 2.16.840.1.758129.3.579.2.98 1950 Unknown [id number] 2.16.840.1.671442.3.579.2. 1950 Unknown [id number] 2.16.840.1.087220.3.579.2. 1950 Unknown [id number] 2.16.840.1.854129.3.579.2. 1950 Unknown [id number] 2.16.840.1.466061.3.579.2. 1950 Unknown [id number] 2.16.840.1.528795.3.579.2. 1950 Unknown [id number] 2.16.840.1.907841.3.579.2. 1950 Unknown [id number] 2.16.840.1.767647.3.579.2 1950 Unknown [id number] 2.16.840.1.658023.3.579.2. 1950 Unknown [id number] 2.16.840.1.623198.3.579.2 1950 Unknown [id number] 2.16.840.1.383762.3.579.2. 1950 Unknown [id number] 2.16.840.1.828675.3.579.2. 1950 Unknown [id number] 2.16.840.1.170715.3.579.2. 1950 Unknown [id number] 2.16.840.1.416342.3.579.2. 1950 Unknown [id number] 2.16.840.1.955758.3.579.2. 1950 Unknown [id number] 2.16.840.1.098429.3.579.2. 1950 Unknown [id number] 2.16.840.1.416518.3.579.2.983 1950 Unknown [id number] 2.16.840.1.597035.3.579.2.983 1950 Unknown [id number] 2.16.840.1.328556.3.579.2.983 1950 Unknown [id number] 2.16.840.1.053182.3.579.2.983 1950 Unknown [id number] 2.16.840.1.969926.3.579.2.983 1950 Unknown [id number] 2.16.840.1.953657.3.579.2.983 1950 Unknown [id number] 2.16.840.1.117246.3.579.2.983 1950 Unknown [id number] 2.16.840.1.693070.3.579.2.983 1950 Unknown [id number] 2.16.840.1.931928.3.579.2.983 1950 Unknown [id number] 2.16.840.1.885731.3.579.2.983 1950 Unknown [id number] 2.16.840.1.531742.3.579.2.983 1950 Unknown [id number] 2.16.840.1.384515.3.579.2.983 Social History Date Type Detail Facility Start: 01-26-2012 End: 01-25-2018 Tobacco smoking status NHIS Never smoker [facility] Work Phone: Start: 1950 Sex Assigned At Not on file [facility] Work Phone: Start: 01-26-2012 End: 08-01-2020 Tobacco use and exposure Never used [facility] Start: 05-11-2021 End: 06-21-2021 Exposure to SARS-CoV-2 (event) Not sure [facility] Start: 05-27-2021 End: 01-12-2023 Alcohol intake Current drinker of alcohol (finding) [facility] Start: 04-03-2020 History SDOH Alcohol Frequency 2 [facility] Start: 10-24-2016 History SDOH Alcohol Comment infrequently [facility] Start: 04-03-2020 End: 08-15-2022 History of Social function [facility] Start: 04-03-2020 End: 08-15-2022 Alcohol Use Disorder Identification Test - Consumption [AUDIT-C] [facility] How often to you hav e a drink containing alcohol? Monthly or less [facility] Average Number of Drinks Not on file [facility] Start: 09-24-2016 Gender identity Identifies as male gender (finding) [facility] Start: 09-30-2022 Alcohol Comment occasional [facility] Medical Equipment Procedure Code Equipment Code Equipment Origin al Text Equipment Identifier Dates [facility] 03/26/15 - [id number] Start: 10-27-2016 [facility] 03/26/15 - [id number] Start: 11-10-2016 [id number] Start: 06-27-2014 Goals Date Patient Goal Desired Activity /State Personal health goal Clinical Notes 06-12-2008 to 02-16-2023 Nadeem Merchant PT - 02/13/2023 9:33 AM Taylor Neely PTA - 02/04/2023 4:55 PM Nadeem Tolliver PT - 02/04/2023 4:16 PM Carol Viveros MD - 01/12/2023 9:29 AM ESTPatient Instructions Note Date & Type Note Facility 02-16-2023 Note HNO ID: [id number] Author: Nadeem Merchant PT Service: ? Author Type: Physical Therapist Type: Progress Notes Filed: 02/16/2023 5:16 PM Note Text: Episode Visit Count: 5 Therapist That Will Accept/Oversee The Plan Of Care: Nadeem Merchant PT Start of Care Date: 01/21/23 Onset Date: 01/12/23 Plan of Care Certification Date: 01/21/23 Next Certification Due Date: 03/18/23 Patient Identified by Name and Date of : Yes REHABILITATION AND SPORTS THERAPY PHYSICAL THERAPY TREATMENT NOTE ASSESSMENT: Deepa Abraham tolerated the session with fatigue and expected muscle soreness. He demonstrated difficulty with walking at end of session with shuffling pattern, leading to mild festinating gait pattern. The patient will continue to benefit from ongoing skilled physical therapy to progress toward set goals. PLAN FOR NEXT VISIT: Continue with LE strengthening and balance per pt tolerance and L knee pain. SUBJECTIVE: Pt reports that his L knee was not good yesterday but is feeling better today. Pt walking into clinic with SC and increased limp on LLE. Pt states the most difficulty when getting out of bed and trying to regain his balance. Standing increases pain. My L knee candace on me sometimes Pain: Pain Pain Level: 5 Pain Location: Knee - Left, Knee - Right Description: Aching Frequency: Continuous Post Treatment Pain Post Treatment Pain Level: 5 Post Treatment Pain Location: Knee - Left, Knee - Right Post Treatment Symptoms: fatigue OBJECTIVE MEASURES WITH LEVEL OF FUNCTION: TREATMENT: Therapeutic Exercise: 1: STS x 5 2: Seated HS curls with GTB 2x10 B 3: Seated alt marching with 1.5# ankle weights 2x10 B 4: LAQ 2x10 with 1.5 # B 5: Seated hip abduction with GTB 2x10 6: Hip adduction squeeze with ball 2x10 Skilled Intervention: Patient was educated in proper exercise technique and purpose for exercises. Skilled judgment was used in selection of appropriate interventions. Correct performance of therapeutic exercises was facilitated with verbal and visual cuing. Self-Detention Management: 1: Edcucation on contacting PCP about L knee pain, afffecting what pt is able to do and affecting therapy treatment and helping the concern of balance. Skilled Intervention: Skilled judgment in the selection of proper modification for activity of daily living/home management based on clinical presentation, deficits, and needs. Billing Therapeutic Exercise Treatment Minutes: 39 Self-Care/Home Management Treatment Minutes: 3 Skilled Treatment Time Minutes (timed and untimed codes): 42 Total Session Time (minutes): 42 Session Start Time : 1610 Session Stop Time : 1652 MAGDALENE Briones PT [facility] 02-13-2023 Note HNO ID: [id number] Author: Nadeem Merchant PT Service: ? Author Type: Physical Therapist Type: Progress Notes Filed: 02/13/2023 11:58 AM Note Text: Episode Visit Count: 4 Therapist That Will Accept/Oversee The Plan Of Care: Nadeem Merchant PT Start of Care Date: 01/21/23 Onset Date: 01/12/23 Plan of Care Certification Date: 01/21/23 Next Certification Due Date: 03/18/23 Patient Identified by Name and Date of : Yes REHABILITATION AND SPORTS THERAPY PHYSICAL THERAPY TREATMENT NOTE ASSESSMENT: Deepa Abraham tolerated the session with decreased activity tolerance due to L knee pain when weightbearing, fatigue, and expected muscle soreness. He demonstrated difficulty with knee extension on B knees. The patient will continue to benefit from ongoing skilled physical therapy to progress toward set goals. PLAN FOR NEXT VISIT: Resume standing exercise per knee pain SUBJECTIVE: Pt presents to therapy in a wheellchair today, states he can't put hardly any weight through his L leg due to pain in posterior knee, feels like it will not support him. Pt able to walk short distances in his house with the cane, but feels he will need to use the rollator. My whole body is just stiff . Pain: Pain Pain Level: 6 Pain Location: Knee - Left, Knee - Right Description: Aching Frequency: Continuous Post Treatment Pain Post Treatment Pain Location: Knee - Left, Knee - Right OBJECTIVE MEASURES WITH LEVEL OF FUNCTION: TREATMENT: Therapeutic Exercise: 1: Seated knee extensions 3x10 B 2: Seated alt marches 2x10 3: Seated hip adduciton with ball 3x10 4: Seated hip abduction with GTB 3x10 Skilled Intervention: Patient was educated in proper exercise technique and purpose for exercises. Skilled judgment was used in selection of appropriate interventions. Correct performance of therapeutic exercises was facilitated with verbal and visual cuing. Self-Detention Management: 1: Education and discussion on calling PCP about L knee. Pt states he wants to try ice first before contacting PCP. 2: Education on importance of exercise continuation and to keep moving to avoid getting too stiff. Skilled Intervention: Skilled judgment in the selection of proper modification for activity of daily living/home management based on clinical presentation, deficits, and needs. Billing Therapeutic Exercise Treatment Minutes: 40 Self-Care/Home Management Treatment Minutes: 5 Skilled Treatment Time Minutes (timed and untimed codes): 45 Total Session Time (minutes): 45 Session Start Time : 09 Session Stop Time : 1015 Taylor Salguero, MEDICARE COMPLIANCE AUDITOR Nadeem Merchant PT [facility] 02-13-2023 History of Present illness Narrative Episode Visit Count: 4 Therapist That Will Accept/Oversee The Plan Of Care: Nadeem Merchant PT Start of Care Date: 01/21/23 Onset Date: 01/12/23 Plan of Care Certification Date: 01/21/23 Next Certification Due Date: 03/18/23 Patient Identified by Name and Date of : Yes REHABILITATION AND SPORTS THERAPY PHYSICAL THERAPY TREATMENT NOTE ASSESSMENT: Deepa Abraham tolerated the session with decreased activity tolerance due to L knee pain when weightbearing, fatigue, and expected muscle soreness. He demonstrated difficulty with knee extension on B knees. The patient will continue to benefit from ongoing skilled physical therapy to progress toward set goals. PLAN FOR NEXT VISIT: Resume standing exercise per knee pain SUBJECTIVE: Pt presents to therapy in a wheellchair today, states he can't put hardly any weight through his L leg due to pain in posterior knee, feels like it will not support him. Pt able to walk short distances in his house with the cane, but feels he will need to use the rollator. My whole body is just stiff . Pain: Pain Pain Level: 6 Pain Location: Knee - Left, Knee - Right Description: Aching Frequency: Continuous Post Treatment Pain Post Treatment Pain Location: Knee - Left, Knee - Right OBJECTIVE MEASURES WITH LEVEL OF FUNCTION: TREATMENT: Therapeutic Exercise: 1: Seated knee extensions 3x10 B 2: Seated alt marches 2x10 3: Seated hip adduciton with ball 3x10 4: Seated hip abduction with GTB 3x10 Skilled Intervention: Patient was educated in proper exercise technique and purpose for exercises. Skilled judgment was used in selection of appropriate interventions. Correct performance of therapeutic exercises was facilitated with verbal and visual cuing. Self-Detention Management: 1: Education and discussion on calling PCP about L knee. Pt states he wants to try ice first before contacting PCP. 2: Education on importance of exercise continuation and to keep moving to avoid getting too stiff. Skilled Intervention: Skilled judgment in the selection of proper modification for activity of daily living/home management based on clinical presentation, deficits, and needs. Billing Therapeutic Exercise Treatment Minutes: 40 Self-Care/Home Management Treatment Minutes: 5 Skilled Treatment Time Minutes (timed and untimed codes): 45 Total Session Time (minutes): 45 Session Start Time : 929 Session Stop Time : 1015 Taylor Salguero, MEDICARE COMPLIANCE AUDITOR Nadeem Merchant PT documented in this encounter [facility] 02-11-2023 Note HNO ID: [id number] Author: Nadeem Merchant PT Service: ? Author Type: Physical Therapist Type: Progress Notes Filed: 02/12/2023 7:57 AM Note Text: Episode Visit Count: 3 Therapist That Will Accept/Oversee The Plan Of Care: Nadeem Merchant PT Start of Care Date: 01/21/23 Onset Date: 01/12/23 Plan of Care Certification Date: 01/21/23 Next Certification Due Date: 03/18/23 Patient Identified by Name and Date of : Yes REHABILITATION AND SPORTS THERAPY PHYSICAL THERAPY TREATMENT NOTE ASSESSMENT: Deepa Abraham tolerated the session with decreased activity tolerance due to L posterior knee pain, fatigue, and expected muscle soreness. He demonstrated difficulty with standing exercises due to L knee pain and improvements in tolerance to seated LE strengthening . The patient will continue to benefit from ongoing skilled physical therapy to progress toward set goals. PLAN FOR NEXT VISIT: Continue with LE strengthening, gait, and balance per pt's pain. SUBJECTIVE: Pt reports the lat 3 days have not been good days. He feels very weak today. Pt reports that the back of his L knee is hurting a lot ( pain 8/10). Pt had a couple near falls where his caught him, but he did not fall. This happened with standing and getting ready to walk. Pain: Pain Pain Level: 5 Pain Location: Knee - Left, Knee - Right Description: Aching Frequency: Continuous OBJECTIVE MEASURES WITH LEVEL OF FUNCTION: Unable to fully extend L knee in supine. TREATMENT: Therapeutic Exercise: 1: Standing alt marching 1x7 B (painful on L knee) 2: Seated HS stretch 1x30 seconds L 3: Supine PROM HS stretch 3x30 seconds LLE 4: Attempted quad sets, minimal quad activation and painful so discontinued 5: Seated knee extensions 2x10 B 6: Seated alt marching 1x10 B 7: Seated hip adduciton with ball 2x10 Skilled Intervention: Patient was educated in proper exercise technique and purpose for exercises. Skilled judgment was used in selection of appropriate interventions. Correct performance of therapeutic exercises was facilitated with verbal and visual cuing. Neuromuscular Re-Education: 1: Standing NBOS EO 2x30 seconds 2: Standing NBOS EC 2x30 seconds Skilled Intervention: Skilled judgment used to assess appropriate program for balance and coordination activity. Ensured patient safety with use of gait belt. Billing Therapeutic Exercise Treatment Minutes: 42 Neuromuscular Re-Education Treatment Minutes: 5 Skilled Treatment Time Minutes (timed and untimed codes): 47 Total Session Time (minutes): 47 Session Start Time : 1625 Session Stop Time : 1712 Taylor Salguero, MAGDALENE Merchant, PT [facility] 02-05-2023 Note HNO ID: [id number] Author: Micheal Perez MD Service: ? Author Type: Physician Type: Progress Notes Filed: 02/05/2023 2:20 PM Note Text: [facility] - FOLLOW UP EVALUATION Carol Gutierrez MD [id number] [facility] [id number] Dear Carol Gutierrez MD: I had the pleasure of seeing Mr. Abraahm for follow-up today. As you know he is a 72 year old left-handed male with a history of Parkinson's disease since 2020. He is seen with his . Subjective Previous Plan-10/16/2022 Visit: Parkinson's disease - Conitnue Sinemet 25/100 1.5 tablets three times daily but change the schedule to a 5 hour interval. Start PT Restless Legs Syndrome - Continue Mirapex (pramipexole) at bedtime REM Sleep Behavior Disorder - Try Melatonin 5 mg at bedtime Memory - Increase Aricept to 10 mg. May get MoCA assessment at next visit. Constipation - Use Miralax daily only use the Ducolax if you have not had a bowel movement for several days Soft Speech - Start Speech Therapy Interval History: He was in [facility] for 9 hours in December because he wasn't walking and hasn't walked well since. He is getting PT. He has pain, particularly in his knees that has limited his ability to walk. He increased his Sinemet to 2 tablets per dose. He was having tremors, and vivid dreams. He has had some hallucinations as well. Movement Disorders Medications Schedule - as of the start of the visit: Medications 8AM 1PM 6PM Bedtime Sinemet 25/100 1.5 1.5 1.5 pramipexole 0.75 mg 1 Melatonin 5 mg 1 donepezil 10 1 Parkinson's Motor Complications Medication benefit onset: unclear Medication duration: unclear Wearing off: no Prior Anti-Parkinson Therapies Carbidopa/Levodopa Pramipexole Questionnaires: In addition, the following areas that may be affected by abnormal involuntary movements were evaluated: Daily activities Difficulties with eatin (none) Difficulties in dressing: Yes (slight) Difficulties with hygiene activities: 0 (none) Difficulties with handwritin (none) Difficulties with doing hobbies and other activities: Yes (slight) Difficulties turning in bed: Yes (slight) Difficulties getting out of bed, car or chair: Yes (slight) Tremors/Gait/Balance Shaking or tremors: Yes (slight) Walking and balance problems: Yes (moderate) Number of falls in the Last Month: Gait freezing: Autonomic/Pain Lightheadeness on standing: Yes (slight) Urinary problems: Yes (mild) Constipation problems: Yes (slight) Pain and other sensations: Yes (mild) Speech/Swallowing Speech problems: Yes (slight) Drooling: Yes (slight) Chewing and swallowing problems: 0 (none) Sleep/Fatigue Sleep problems: Yes (mild) Daytime sleepiness: Yes (mild) Fatigue: Yes (slight) Mood/Behavior Depression: PHQ-9 Score: 4 usually representing no significant (0-4) depression. Anxiety: MABLE-7 Total Score: 2 usually representing no significant (0-4) anxiety. Finally, the following table shows the patient's overall global physical and mental health using the PROMIS scale: PROMIS-10 Flowsheet Row OT/PT/Speech Visit from 01/21/2023 in [place] [facility] Physical Therapy Office Visit from 10/16/2022 in Neurology Global Physical Health T Score 32.4 44.9 Global Mental Health T Score 33.8 -- 0-10 Standard Pain Scale 2 4 *PROMIS-10 scoring scale: mean = 50, over 50 is above average, under 50 is below average ALLERGIES Allergen Reactions Bactrim [Sulfametho* Hives Lipitor [Atorvastat* Intolerance Muscle pain -- gone with stoppage Lisinopril Cough Pravachol [Pravasta* Intolerance Muscle pain -- also with Lipitor Ranitidine Intolerance nausea Current Outpatient Medications Medication Sig Pramipexole 0.75 mg tablet Take 1 tablet by mouth daily at bedtime. donepezil (ARICEPT) 10 mg tablet Take 1 tablet by mouth once daily. insulin 50/50 lispro protamine-lispro units/mL (HUMALOG MIX 50-50 INSULN U-100) 100 unit/mL suspension 32 units at breakfast, 22 units at lunch and 33 units at dinner. metFORMIN ER (GLUMETZA) 500 mg 24 hr tablet Take 2 tablets by mouth twice daily. calcium carbonate-vitamin D3 (OYSTER SHELL CALCIUM-VIT D3) 500 mg-5 mcg (200 unit) pwpk Take 1 tablet by mouth once daily. rosuvastatin (CRESTOR) 20 mg tablet Take 20 mg by mouth once daily. icosapent ethyl (VASCEPA) 1 gram capsule Take 2 g by mouth twice daily with meals. mirabegron (MYRBETRIQ) 50 mg Tb24 Take 50 mg by mouth once daily. Lancets (MICROLET LANCET) lancets Test blood sugar(s) 1 times daily. Dx: 250.00 Insulin: No Cholecalciferol, Vitamin D3, 2,000 unit cap Take 2,000 Units by mouth once daily. blood sugar diagnostic (EASY TOUCH) test strip Use to check blood sugars twice a day Dx: 250.00 Insulin: No LORATADINE (CLARITIN ORAL) Take by mouth as needed. ASPIRIN 81 MG ORAL TAB Take one(1) tablet daily. QUEtiapine (SEROQUEL) 25 mg tablet Take 0.5 tablets by mouth da (more content not included)... [facility] 02-04-2023 Note HNO ID: [id number] Author: Nadeem Merchant PT Service: ? Author Type: Physical Therapist Type: Progress Notes Filed: 02/04/2023 7:20 PM Note Text: Episode Visit Count: 2 Therapist That Will Accept/Oversee The Plan Of Care: Nadeem Merchant PT Start of Care Date: 01/21/23 Onset Date: 01/12/23 Plan of Care Certification Date: 01/21/23 Next Certification Due Date: 03/18/23 Patient Identified by Name and Date of : Yes REHABILITATION AND SPORTS THERAPY PHYSICAL THERAPY TREATMENT NOTE ASSESSMENT: Deepa Abraham tolerated the session with fatigue and expected muscle soreness. He demonstrated difficulty with rising from seated stepper without having arm rests to push up from and improvements in tolerance to exercise. The patient will continue to benefit from ongoing skilled physical therapy to progress toward set goals. PLAN FOR NEXT VISIT: Continue with functional LE strengthening, gait, and balance for safety. Consider standing balance exercises at beginning of session due to fatigue. Consider STS per pt's tolerance. SUBJECTIVE: Pt reports that he is about average today. Pt states that his L leg is hurting, increased pain with walking. Pt unable to stand very long, it kills him . Pt denies any falls since initial evaluation. Pt states having trouble sleeping on his back due to pain in the back of his knees. Pain: Pain Pain Level: 5 Pain Location: Knee - Right, Knee - Left (posterior aspect) Description: Aching Frequency: Continuous (constant but varies in intensity) OBJECTIVE MEASURES WITH LEVEL OF FUNCTION: Increased tightness on L HS compared to R. TREATMENT: Therapeutic Exercise: 1: *Seated HS stretch 3x30 seconds B (Advised to make sure completed prior to bed especially to help with laying on his back.) 2: Scifit Seated Stepper x 5 minutes (1;1 throughout. Discussed current HEP.) 3: Seated alt marching 2x10 B 4: Seated hip adduciton with ball 2x10 5: Seated knee extensions 2x10 B Skilled Intervention: Patient was educated in proper exercise technique and purpose for exercises. Reviewed and educated patient on additions/changes for home exercise program as above (*). Skilled judgment was used in selection of appropriate interventions. Provided written instruction for home exercise program to facilitate proper performance and compliance. Correct performance of therapeutic exercises was facilitated with verbal and visual cuing. Billing Therapeutic Exercise Treatment Minutes: 47 Skilled Treatment Time Minutes (timed and untimed codes): 47 Total Session Time (minutes): 47 Session Start Time : 1613 Session Stop Time : 1700 MAGDALENE Briones, PT [facility] 02-04-2023 History of Present illness Narrative Program_ID:[id number] Access Code: [email or web address] URL: [email or web address] Date: 02-04-2023 Prepared By: Taylor Salguero Program Notes Exercises - Seated Hamstring Stretch - 1 x daily - 7 x weekly - 1 - 3 Episode Visit Count: 2 Therapist That Will Accept/Oversee The Plan Of Care: Nadeem Merchant PT Start of Care Date: 01/21/23 Onset Date: 01/12/23 Plan of Care Certification Date: 01/21/23 Next Certification Due Date: 03/18/23 Patient Identified by Name and Date of : Yes REHABILITATION AND SPORTS THERAPY PHYSICAL THERAPY TREATMENT NOTE ASSESSMENT: Deepa Abraham tolerated the session with fatigue and expected muscle soreness. He demonstrated difficulty with rising from seated stepper without having arm rests to push up from and improvements in tolerance to exercise. The patient will continue to benefit from ongoing skilled physical therapy to progress toward set goals. PLAN FOR NEXT VISIT: Continue with functional LE strengthening, gait, and balance for safety. Consider standing balance exercises at beginning of session due to fatigue. Consider STS per pt's tolerance. SUBJECTIVE: Pt reports that he is about average today. Pt states that his L leg is hurting, increased pain with walking. Pt unable to stand very long, it kills him . Pt denies any falls since initial evaluation. Pt states having trouble sleeping on his back due to pain in the back of his knees. Pain: Pain Pain Level: 5 Pain Location: Knee - Right, Knee - Left (posterior aspect) Description: Aching Frequency: Continuous (constant but varies in intensity) OBJECTIVE MEASURES WITH LEVEL OF FUNCTION: Increased tightness on L HS compared to R. TREATMENT: Therapeutic Exercise: 1: *Seated HS stretch 3x30 seconds B (Advised to make sure completed prior to bed especially to help with laying on his back.) 2: Scifit Seated Stepper x 5 minutes (1;1 throughout. Discussed current HEP.) 3: Seated alt marching 2x10 B 4: Seated hip adduciton with ball 2x10 5: Seated knee extensions 2x10 B Skilled Intervention: Patient was educated in proper exercise technique and purpose for exercises. Reviewed and educated patient on additions/changes for home exercise program as above (*). Skilled judgment was used in selection of appropriate interventions. Provided written instruction for home exercise program to facilitate proper performance and compliance. Correct performance of therapeutic exercises was facilitated with verbal and visual cuing. Billing Therapeutic Exercise Treatment Minutes: 47 Skilled Treatment Time Minutes (timed and untimed codes): 47 Total Session Time (minutes): 47 Session Start Time : 1613 Session Stop Time : 1700 Taylor Salguero, MEDICARE COMPLIANCE AUDITOR Nadeem Merchant PT documented in this encounter [facility] 01-21-2023 Note HNO ID: [id number] Author: Nadeem Merchant PT Service: ? Author Type: Physical Therapist Type: Progress Notes Filed: 01/21/2023 12:35 PM Note Text: Episode Visit Count: 1 Therapist That Will Accept/Oversee The Plan Of Care: Nadeem Merchant PT Start of Care Date: 01/21/23 Onset Date: 01/12/23 Plan of Care Certification Date: 01/21/23 Next Certification Due Date: 03/18/23 Patient Identified by Name and Date of : Yes REHABILITATION AND SPORTS THERAPY PHYSICAL THERAPY EVALUATION PLAN OF CARE: Assessment: Deepa Abraham presents with chief complaint of B knee pain that interferes with rising from a chair, standing, walking, sleeping (car transfers, walking the dog) . He presents with impairments in ADL's, balance, gait, independence in exercise, overall function, posture, strength, and symptom management. PROMIS? (Patient-Reported Outcomes Measurement Information System) scores were reviewed and self efficacy domain identified as a rehabilitation concern. Prognosis for therapy is Good due to: current objective clinical presentation, good overall health status, acuteness of condition, good support system/ coping skills. He will benefit from skilled therapy services to meet the goals established for this plan of care as noted below. Assessment Fall Risk : Complex at risk Goals for Episode of Care: created on 01/21/23 through 03/18/23 Patient will decrease pain rating by 2 points to meet minimal clinical important difference for numeric pain rating scale. Stand / Walk at prior functional level without pain/symptoms. Patient will report no falls. Improve score on Timed Up and Go Test to 7-12 seconds to reflect decreased fall risk. Improve score on 30 Second Chair Stand to 11 repetitions to reflect decreased fall risk. Improve performance on 4 Stage Balance Test to 10 second tandem to reflect decreased fall risk. [place] in home exercise program including cardiovascular exercise. Patient Goals: regain prior functional status Planned Interventions, Frequency, and Duration: Current Frequency: 2x/week Duration: 8 weeks Total Number of Visits Planned: 16 Planned Treatment Interventions: Therapeutic exercise (01763), Neuromuscular re-education (88925), Manual therapy (15564), Therapeutic activities (66721), Self-halfway management (26660), Gait Training (59027), Patient/Family/Caregiver Education, Body Mechanics Training, General Conditioning, Functional training PLAN FOR NEXT VISIT: Review, correct and progress HEP to tolerance with emphasis on safety. Begin a comprehensive gait and balance treatment plan to increase overall ease and safety with functional mobility. Pain management will need incorporated via flexion directional preference for lumbar spine. Patient demonstrates good understanding of plan of care and treatment. The above goals and plan of care were discussed and agreed upon by patient/family. SUBJECTIVE: Pt reports that after going on a vacation, he developed B knee pain that is so severe it is limiting his ability to ambulate. He reports that prior to the onset of knee pain after vacation to [place], he was ambulating independently with cane and/or rollator. He reports chronic difficulty with rising from chair. He reports that he even drove through [place] to [place]. He reports that he was walking his normal while on vacation. Pt and his report that 2 days after returning home, he developed severe pain in posterior B knees without explanation. As a result of the the new unexplained severe knee pain, he cannot rise or ambulate at all like he was previously. He reports that laying in bed causes his knee pain to increase. He reports multiple knee surgeries and lots of PT. He reports R TKA in 2020 with multiple complications. He reports that something was left in his knee after TKA. He has had subsequent surgeries for debridement. Pt and his report that he has significant pain and difficulty with rising to full upright position. He reports that prolonged standing causes severe B knee pain and he is unable to stand fully upright. Patient Goals: regain prior functional status Functional Limitations: rising from a chair, standing, walking, sleeping (car transfers, walking the dog) Prior Level of Function: Independent with restrictions Independent with the following restrictions: Pt was able to ambulate independently with cane and/or rollator but he has struggle with rising and standing upright. Relevant History Past Relevant Surgical Conditions: Total Knee Replacement-Right Employment: Retired (was [employer]) Home Environment Patient Lives With: Spouse Assistance Available: PRN Home Type: Apt/Condo Entry To Home: No Stairs Number Of Stairs To Bed/Bath: 0 Equipment Owned: Cane, Wheelchair- Manual, Rollator Intake Information: Prescription present Previous Treatment: Pain meds Falls I (more content not included)... [facility] 01-12-2023 Note HNO ID: [id number] Author: Carol Gutierrez MD Service: ? Author Type: Physician Type: Progress Notes Filed: 01/12/2023 9:56 AM Note Text: Chief Complaint Patient presents with: ER F/U HPI Deepa Abraham is a 72 year old male who presents here today for ER Follow Up.. Patient evaluated at [facility] ED on 01/05 for c/o decreased ability to walk after getting back from vacation 1 week prior. Increased bilateral knee pain. Workup in the ED negative including CBC, BMP, LVFTs, UA, CT head, US for DVT. Xray of the right knee showed previous replacement without new injury. Left knee xray showed mild DDD. Offered admission for rehab which they refused. Opted to go home on Percocet and follow up with our office and PT. Since discharge, symptoms have not improved. Pain today 3/10 while sitting. Taking percocet <1 per day which does help somewhat with his pain. Not taking anything OTC for his pain. Has not tried ice or heat. Has not gotten in with PT yet. Has walker and cane at home and has been using cane for ambulation. Admits to knees giving out once since the ER. Denies fall/injury, fever, redness or swelling of his knees, locking or catching. Past medical history, appointments, medications, allergies reviewed. Previous Medical History PAST MEDICAL HISTORY Diagnosis Date Aortic valve sclerosis Arthritis Atrial fibrillation (HCC) Dr. Persaud? CAD (coronary artery disease) CKD stage G3b/A1, GFR 30 - 44 and albumin creatinine ratio <30 mg/g Constipation Depression DM type 2 (diabetes mellitus, type 2) ([facility]) ~2007 Endocrinology-Piedad Ruggiero Essential hypertension, benign ~10 years Lymphedema of both lower extremities Mild cognitive impairment Obesity Onychomycosis CONCHITA (obstructive sleep apnea) refusing CPAP Other and unspecified hyperlipidemia Overactive bladder Dr. Swanson Parkinson's disease Dr. Sandoval Previous Surgical History PAST SURGICAL HISTORY Procedure Laterality Date COLONOSCOPY 11/19/2022 repeat 10 years EYE SURGERY HX HERNIA REPAIR HX IMPLANT MESH OPN HERNIA RPR/DEBRIDEMENT CLOSURE 03/02/1997 left JOINT REPLACEMENT HX REMV CATARACT EXTRACAP,INSERT LENS Bilateral 2017 RPR NONUNION/MALUNION RADIUSANDULNA W/O AUTOGRAF 03/02/1978 left and right TOTAL KNEE REPLACEMENT Right surgery x 2 Family History FAMILY HISTORY Problem Relation Age of Onset Heart disease Mother Cancer Father Lung cancer (smoker). Hypertension Father Colon Cancer Other none known Patient Allergies ALLERGIES Allergen Reactions Bactrim [Sulfametho* Hives Lipitor [Atorvastat* Intolerance Muscle pain -- gone with stoppage Lisinopril Cough Pravachol [Pravasta* Intolerance Muscle pain -- also with Lipitor Ranitidine Intolerance nausea Current Medications Current Outpatient Medications on File Prior to Visit Medication Sig Pramipexole 0.75 mg tablet Take 1 tablet by mouth daily at bedtime. carbidopa-levodopa (SINEMET 25-100) 25-100 mg per tablet Take 1.5 tablets by mouth three times daily. Melatonin 5 mg cap Take 1 capsule by mouth daily at bedtime. donepezil (ARICEPT) 10 mg tablet Take 1 tablet by mouth once daily. insulin 50/50 lispro protamine-lispro units/mL (HUMALOG MIX 50-50 INSULN U-100) 100 unit/mL suspension 32 units at breakfast, 22 units at lunch and 33 units at dinner. metFORMIN ER (GLUMETZA) 500 mg 24 hr tablet Take 2 tablets by mouth twice daily. venlafaxine (EFFEXOR) 75 mg tablet Take 75 mg by mouth twice daily. calcium carbonate-vitamin D3 (OYSTER SHELL CALCIUM-VIT D3) 500 mg-5 mcg (200 unit) pwpk Take 1 tablet by mouth once daily. rosuvastatin (CRESTOR) 20 mg tablet Take 20 mg by mouth once daily. icosapent ethyl (VASCEPA) 1 gram capsule Take 2 g by mouth twice daily with meals. mirabegron (MYRBETRIQ) 50 mg Tb24 Take 50 mg by mouth once daily. losartan (COZAAR) 25 mg tablet Take 1 tablet by mouth once daily. Lancets (MICROLET LANCET) lancets Test blood sugar(s) 1 times daily. Dx: 250.00 Insulin: No Cholecalciferol, Vitamin D3, 2,000 unit cap Take 2,000 Units by mouth once daily. blood sugar diagnostic (EASY TOUCH) test strip Use to check blood sugars twice a day Dx: 250.00 Insulin: No LORATADINE (CLARITIN ORAL) Take by mouth as needed. ASPIRIN 81 MG ORAL TAB Take one(1) tablet daily. No current facility-administered medications on file prior to visit. Social History Social History Tobacco Use Smoking status: Never Smokeless tobacco: Never Vaping Use Vaping Use: Never used Substance Use Topics Alcohol use: Yes Comment: occasional Drug use: No Review of Symptoms REVIEW OF SYSTEMS See HPI EXAM: BP 136/66 Pulse 88 Resp 16 SpO2 99% General Appearance: Well appearing, alert, in no acute distress, well-hydrated, well nourished.. Skin: Skin color, texture, turgor normal, no suspicious rashes or lesions. KNEE:Location: Bilateral Redness: No. Warmth: No. (more content not included)... [facility] 01-12-2023 History of Present illness Narrative Chief Complaint Patient presents with: ER F/U HPI Deepa Abraham is a 72 year old male who presents here today for ER Follow Up.. Patient evaluated at [facility] ED on 01/05 for c/o decreased ability to walk after getting back from vacation 1 week prior. Increased bilateral knee pain. Workup in the ED negative including CBC, BMP, LVFTs, UA, CT head, US for DVT. Xray of the right knee showed previous replacement without new injury. Left knee xray showed mild DDD. Offered admission for rehab which they refused. Opted to go home on Percocet and follow up with our office and PT. Since discharge, symptoms have not improved. Pain today 3/10 while sitting. Taking percocet <1 per day which does help somewhat with his pain. Not taking anything OTC for his pain. Has not tried ice or heat. Has not gotten in with PT yet. Has walker and cane at home and has been using cane for ambulation. Admits to knees giving out once since the ER. Denies fall/injury, fever, redness or swelling of his knees, locking or catching. Past medical history, appointments, medications, allergies reviewed. Previous Medical History PAST MEDICAL HISTORY Diagnosis Date Aortic valve sclerosis Arthritis Atrial fibrillation (HCC) Dr. Persaud? CAD (coronary artery disease) CKD stage G3b/A1, GFR 30 - 44 and albumin creatinine ratio <30 mg/g Constipation Depression DM type 2 (diabetes mellitus, type 2) ([facility]) ~2007 Endocrinology-Piedad Ruggiero Essential hypertension, benign ~10 years Lymphedema of both lower extremities Mild cognitive impairment Obesity Onychomycosis CONCHITA (obstructive sleep apnea) refusing CPAP Other and unspecified hyperlipidemia Overactive bladder Dr. Swanson Parkinson's disease Dr. Sandoval Previous Surgical History PAST SURGICAL HISTORY Procedure Laterality Date COLONOSCOPY 11/19/2022 repeat 10 years EYE SURGERY HX HERNIA REPAIR HX IMPLANT MESH OPN HERNIA RPR/DEBRIDEMENT CLOSURE 03/02/1997 left JOINT REPLACEMENT HX REMV CATARACT EXTRACAP,INSERT LENS Bilateral 2017 RPR NONUNION/MALUNION RADIUS&ULNA W/O AUTOGRAF 03/02/1978 left and right TOTAL KNEE REPLACEMENT Right surgery x 2 Family History FAMILY HISTORY Problem Relation Age of Onset Heart disease Mother Cancer Father Lung cancer (smoker). Hypertension Father Colon Cancer Other none known Patient Allergies ALLERGIES Allergen Reactions Bactrim [Sulfametho* Hives Lipitor [Atorvastat* Intolerance Muscle pain -- gone with stoppage Lisinopril Cough Pravachol [Pravasta* Intolerance Muscle pain -- also with Lipitor Ranitidine Intolerance nausea Current Medications Current Outpatient Medications on File Prior to Visit Medication Sig Pramipexole 0.75 mg tablet Take 1 tablet by mouth daily at bedtime. carbidopa-levodopa (SINEMET 25-100) 25-100 mg per tablet Take 1.5 tablets by mouth three times daily. Melatonin 5 mg cap Take 1 capsule by mouth daily at bedtime. donepezil (ARICEPT) 10 mg tablet Take 1 tablet by mouth once daily. insulin 50/50 lispro protamine-lispro units/mL (HUMALOG MIX 50-50 INSULN U-100) 100 unit/mL suspension 32 units at breakfast, 22 units at lunch and 33 units at dinner. metFORMIN ER (GLUMETZA) 500 mg 24 hr tablet Take 2 tablets by mouth twice daily. venlafaxine (EFFEXOR) 75 mg tablet Take 75 mg by mouth twice daily. calcium carbonate-vitamin D3 (OYSTER SHELL CALCIUM-VIT D3) 500 mg-5 mcg (200 unit) pwpk Take 1 tablet by mouth once daily. rosuvastatin (CRESTOR) 20 mg tablet Take 20 mg by mouth once daily. icosapent ethyl (VASCEPA) 1 gram capsule Take 2 g by mouth twice daily with meals. mirabegron (MYRBETRIQ) 50 mg Tb24 Take 50 mg by mouth once daily. losartan (COZAAR) 25 mg tablet Take 1 tablet by mouth once daily. Lancets (MICROLET LANCET) lancets Test blood sugar(s) 1 times daily. Dx: 250.00 Insulin: No Cholecalciferol, Vitamin D3, 2,000 unit cap Take 2,000 Units by mouth once daily. blood sugar diagnostic (EASY TOUCH) test strip Use to check blood sugars twice a day Dx: 250.00 Insulin: No LORATADINE (CLARITIN ORAL) Take by mouth as needed. ASPIRIN 81 MG ORAL TAB Take one(1) tablet daily. No current facility-administered medications on file prior to visit. Social History Social History Tobacco Use Smoking status: Never Smokeless tobacco: Never Vaping Use Vaping Use: Never used Substance Use Topics Alcohol use: Yes Comment: occasional Drug use: No Review of Symptoms REVIEW OF SYSTEMS See HPI EXAM: BP 136/66 Pulse 88 Resp 16 SpO2 99% General Appearance: Well appearing, alert, in no acute distress, well-hydrated, well nourished.. Skin: Skin color, texture, turgor normal, no suspicious rashes or lesions. KNEE:Location: Bilateral Redness: No. Warmth: No. Crepitus: Yes. Effusion: No. Joint line tenderness: No. Lateral tenderness: No. Medial tenderness: No. Drawer sign negative: Yes. Medial or lateral laxity: No. Holland's sign: No. Health Maintenance List BP Controlled (<130/80) Never done RSV Vaccine(1 - 1-dose 60+ series) Never done Dilated Retinal Exam due on 10/21/2015 LDL Cholesterol due on 11/17/2015 Advance Directive Discussion Never done Influenza Vaccine(1) due on 10/31/2022 Covid-19 Vaccine( - season) due on 10/31/2022 HbA1C due on 12/02/2022 DTaP,Tdap,Td Vaccine(1 - Tdap) due on 10/01/2023 Shingrix Vaccine(1 of 2) due on 10/01/2023 Urine Albumin:Creatinine Ratio due on 04/23/2023 Diabetic Foot Exam due on 09/10/2023 Annual PCP Team Chronic Disease Visit due on 10/01/2023 Colorectal Cancer Screening due on 11/19/2032 Hepatitis B Vaccine Completed Hepatitis C Screening Completed Pneumococcal Vaccine: 65+ Completed HPV Vaccine Aged Out ASSESSMENT/PLAN: 1. Acute pain of both knees - ICD9: 338.19, 719.46, ICD10: M25.561, M25.562 (primary diagnosis) Increased pain 2/2 walking more during vacation with known OA. Workup in the ED negative. Discussed use of ice/heat, OTC tylenol, and will refer to PT for evaluation and treatment. Red flags for re-assessment reviewed with patient in detail. - CONSULT TO PHYSICAL THERAPY 2. Primary osteoarthritis of both knees - ICD9: 715.16, ICD10: M17.0 See above. - CONSULT TO PHYSICAL THERAPY Carol Gutierrez MD documented in this encounter [facility] 12-15-2022 Miscellaneous Notes calling to say Dr. Moreno is not longer in practice and they would like Dr. Perez to take over the Pramipexole for his RLS. This goes to Ashok Pérez. Pending. Last OV 10/16/22 with [facility] Requested Prescriptions Pending Prescriptions Disp Refills Pramipexole 0.75 mg tablet 90 tablet 3 Sig: Take 1 tablet by mouth daily at bedtime. Janna Luna documented in this encounter [facility] 12-05-2022 Note HNO ID: [id number] Author: Brooke Machuca Service: ? Author Type: ? Type: Progress Notes Filed: 12/05/2022 7:37 AM Note Text: POPULATION HEALTH NAVIGATION OUTREACH Action/FYI 12/05/22 Received message from PCP stating patients A1C handled by patients [employer]. Order canceled. Patient Identified by Name and : NO Outreach Outcome/Action Unable to reach patient: Left message Did you use a PCP flex slot to schedule this appointment? N/A Navigation Signature: Brooke Rizzo Population Health Navigator December 05, 2022 7:13 AM [facility] 12-05-2022 History of Present illness Narrative POPULATION HEALTH NAVIGATION OUTREACH Action/12/05/22 Received message from PCP stating patients A1C handled by patients [employer]. Order canceled. Patient Identified by Name and : NO Outreach Outcome/Action Unable to reach patient: Left message Did you use a PCP flex slot to schedule this appointment? N/A Navigation Signature: Brooke Rizzo Population Health Navigator December 05, 2022 7:13 AM Established with Endo on 09/01, Piedad Ruggiero CNP. Seen 1 month later was referred to [facility]. A1c at visit on 09/01/22 - 8.2%, updated. Jovita Cao Ma His diabetes is managed by endocrinology Piedad Ruggiero. They are ordering these tests for him. POPULATION HEALTH NAVIGATION OUTREACH Action/12/04/22 Discuss/due [employer] care gaps: ~HgBA1C ~Dilated Retinal exam ~Advance Directives ~Flu vaccine Outcome: ~Left message on voice mail and sent Nu3hart message. *Pended HgBA1C order pending, sent to PCP to review and file* Patient Identified by Name and : NO Outreach Outcome/Action Unable to reach patient: Left message MyChart message sent Did you use a PCP flex slot to schedule this appointment? N/A Reason for Outreach Care Gap or Scheduling/Wellness visits Payer: Payor: [employer] MEDICARE / Plan: [employer] MEDICARE PPO / Product Type: PPO / Care Gap Reviewed:: Diabetic Eye Exam HBA1C Flu Vaccine Reminder: Reminder note to check Health Maintenance for items below Health Maintenance items due: Hepatitis C Screening Never done BP Controlled (<130/80) Never done Hepatitis B Vaccine(1 of 3 - Risk 3-dose series) Never done Diabetic Foot Exam due on 12/09/2014 Urine Albumin:Creatinine Ratio due on 04/20/2015 HbA1C due on 05/28/2015 Dilated Retinal Exam due on 10/21/2015 LDL Cholesterol due on 11/17/2015 Covid-19 Vaccine(4 - Moderna series) due on 04/27/2021 Advance Directive Discussion Never done Influenza Vaccine(1) due on 10/31/2022 Navigation Signature: Brooke Rizzo Population Health Navigator December 04, 2022 7:44 AM documented in this encounter [facility] 12-04-2022 Note HNO ID: [id number] Author: Jovita Cao Ma Service: ? Author Type: ? Type: Progress Notes Filed: 12/04/2022 12:31 PM Note Text: Established with Mirian on 09/01, Piedad Ruggiero CNP. Seen 1 month later was referred to [facility]. A1c at visit on 09/01/22 - 8.2%, updated. Jovita Cao Ma [facility] 12-04-2022 Note Patient Outreach (NE TNAV) DEEPA ABRAHAM ([id number]) 1950 M Date Time Provider Department 12/04/22 BROOKE RIZZO (ELFEGO) YURIV During your visit today, we recorded the following information about you: Brooke Machuca 12/04/2022 9:46 AM Signed POPULATION HEALTH NAVIGATION OUTREACH Action/FYI 12/04/22 Discuss/due [employer] care gaps: ~HgBA1C ~Dilated Retinal exam ~Advance Directives ~Flu vaccine Outcome: ~Left message on voice mail and sent Nu3hart message. *Pended HgBA1C order pending, sent to PCP to review and file* Patient Identified by Name and : NO Outreach Outcome/Action Unable to reach patient: Left message MyChart message sent Did you use a PCP flex slot to schedule this appointment? N/A Reason for Outreach Care Gap or Scheduling/Wellness visits Payer: Payor: [employer] MEDICARE / Plan: [employer] MEDICARE PPO / Product Type: PPO / Care Gap Reviewed:: Diabetic Eye Exam HBA1C Flu Vaccine Reminder: Reminder note to check Health Maintenance for items below Health Maintenance items due: Hepatitis C Screening Never done BP Controlled (<130/80) Never done Hepatitis B Vaccine(1 of 3 - Risk 3-dose series) Never done Diabetic Foot Exam due on 12/09/2014 Urine Albumin:Creatinine Ratio due on 04/20/2015 HbA1C due on 05/28/2015 Dilated Retinal Exam due on 10/21/2015 LDL Cholesterol due on 11/17/2015 Covid-19 Vaccine(4 - Moderna series) due on 04/27/2021 Advance Directive Discussion Never done Influenza Vaccine(1) due on 10/31/2022 Navigation Signature: Brooke Rizzo Population Health Navigator December 04, 2022 7:44 AM Carol Gutierrez MD 12/04/2022 9:46 AM Signed His diabetes is managed by endocrinology Piedad Ruggiero. They are ordering these tests for him. Jovita Cao Ma 12/04/2022 12:31 PM Signed Established with Endo on 09/01, Piedad Ruggiero, JUANCARLOS. Seen 1 month later was referred to [facility]. A1c at visit on 09/01/22 - 8.2%, updated. Brooke Mark Ma 12/05/2022 7:37 AM Signed POPULATION HEALTH NAVIGATION OUTREACH Action/FYI 12/05/22 Received message from PCP stating patients A1C handled by patients [employer]. Order canceled. Patient Identified by Name and : NO Outreach Outcome/Action Unable to reach patient: Left message Did you use a PCP flex slot to schedule this appointment? N/A Navigation Signature: Brooke Rizzo Population Health Navigator December 05, 2022 7:13 AM Allergies As of Date: 12/04/2022 Noted Allergy Reaction BACTRIM (SULFAMETHOXAZOLE-TRIMETH*11/20/19 4 - Hives LIPITOR (ATORVASTATIN CALCIUM) 07/22/2010 5 - Intolerance Comments: Muscle pain -- gone with stoppage LISINOPRIL 06/13/2008 3 - Cough PRAVACHOL (PRAVASTATIN) 07/22/2010 5 - Intolerance Comments: Muscle pain -- also with Lipitor RANITIDINE 02/25/2007 5 - Intolerance Comments: nausea Date Reviewed: 11/19/2022 Reviewed by: Elham Brewster RN - Fully Assessed Reason for Visit: Population Health Navigation Outreach [3910] Cmt: Adeb[place]na care gaps Primary Visit Diagnosis:Type 2 diabetes mellitus without complication, with long-term current use of insulin (HCC) [E11.9, Z79.4] Order(s):URINE ALBUMIN W/CREAT RATIO [[id number]] Order #: [id number] HGB A1C [[id number]] Order #: [id number] Prescriptions as of 12/05/2022 - carbidopa-levodopa (SINEMET 25-100) 25-100 mg per tablet Take 1.5 tablets by mouth three times daily. - Pramipexole 0.75 mg tablet Take 1 tablet by mouth daily at bedtime. - Melatonin 5 mg cap Take 1 capsule by mouth daily at bedtime. - donepezil (ARICEPT) 10 mg tablet Take 1 tablet by mouth once daily. - insulin 50/50 lispro protamine-lispro units/mL (HUMALOG MIX 50-50 INSULN U-100) 100 unit/mL suspension 32 units at breakfast, 22 units at lunch and 33 units at dinner. - metFORMIN ER (GLUMETZA) 500 mg 24 hr tablet Take 2 tablets by mouth twice daily. - venlafaxine (EFFEXOR) 75 mg tablet Take 75 mg by mouth twice daily. - calcium carbonate-vitamin D3 (OYSTER SHELL CALCIUM-VIT D3) 500 mg-5 mcg (200 unit) pwpk Take 1 tablet by mouth once daily. - rosuvastatin (CRESTOR) 20 mg tablet Take 20 mg by mouth once daily. - icosapent ethyl (VASCEPA) 1 gram capsule Take 2 g by mouth twice daily with meals. - mirabegron (MYRBETRIQ) 50 mg Tb24 Take 50 mg by mouth once daily. - losartan (COZAAR) 25 mg tablet Take 1 tablet by mouth once daily. - Lancets (MICROLET LANCET) lancets Test blood sugar(s) 1 times daily. Dx: 250.00 Insulin: No - Cholecalciferol, Vitamin D3, 2,000 unit cap Take 2,000 Units by mouth once daily. - blood sugar diagnostic (EASY TOUCH) test strip Use to check blood sugars twice a day Dx: 250.00 Insulin: No - LORATADINE (CLARITIN ORAL) Take by mouth as needed. - ASPIRIN 81 MG ORAL TAB Take one(1) tablet daily. Problem List As Of Date 12/04/2022 Noted Resolved OBESITY NOS [E66. (more content not included)... [facility] 12-04-2022 Note HNO ID: [id number] Author: Carol Gutierrez MD Service: ? Author Type: Physician Type: Progress Notes Filed: 12/04/2022 9:46 AM Note Text: His diabetes is managed by endocrinology Piedad Ruggiero. They are ordering these tests for him. [facility] 12-04-2022 Note HNO ID: [id number] Author: Brooke Machuca Service: ? Author Type: ? Type: Progress Notes Filed: 12/04/2022 9:46 AM Note Text: POPULATION HEALTH NAVIGATION OUTREACH Action/FYI 12/04/22 Discuss/due [employer] care gaps: ~HgBA1C ~Dilated Retinal exam ~Advance Directives ~Flu vaccine Outcome: ~Left message on voice mail and sent Beneq message. *Pended HgBA1C order pending, sent to PCP to review and file* Patient Identified by Name and : NO Outreach Outcome/Action Unable to reach patient: Left message Nu3hart message sent Did you use a PCP flex slot to schedule this appointment? N/A Reason for Outreach Care Gap or Scheduling/Wellness visits Payer: Payor: [employer] MEDICARE / Plan: [employer] MEDICARE PPO / Product Type: PPO / Care Gap Reviewed:: Diabetic Eye Exam HBA1C Flu Vaccine Reminder: Reminder note to check Health Maintenance for items below Health Maintenance items due: Hepatitis C Screening Never done BP Controlled (<130/80) Never done Hepatitis B Vaccine(1 of 3 - Risk 3-dose series) Never done Diabetic Foot Exam due on 12/09/2014 Urine Albumin:Creatinine Ratio due on 04/20/2015 HbA1C due on 05/28/2015 Dilated Retinal Exam due on 10/21/2015 LDL Cholesterol due on 11/17/2015 Covid-19 Vaccine(4 - Moderna series) due on 04/27/2021 Advance Directive Discussion Never done Influenza Vaccine(1) due on 10/31/2022 Navigation Signature: Brooke Rizzo Population Health Navigator December 04, 2022 7:44 AM [facility] 11-19-2022 Nurse Note Arrived in phase II via cart. Left lateral position. Sedated, but responds to verbal stimuli. Color normal; skin warm and dry. Respirations wnl and unlabored. Abdomen soft and with + bowel sounds in quads X 4. Patient resting comfortably. Elham Brewster RN documented in this encounter [facility] 11-19-2022 History and physical note UPDATED PROCEDURAL SEDATION HISTORY AND PHYSICAL EXAMINATION SERVICE DATE: 11/19/2022 SERVICE TIME: 7:29 PHYSICAL EXAM MUST BE COMPLETED ON ADMISSION PROCEDURE: colonosocpy, possible biopsies Procedure Indications: screening for colon cancer The History and Physical (completed in the past 30 days) has been reviewed and the patient has been examined. The contents accurately reflect the patient's condition with the following additions or revisions since the H&P was completed. ASA Class: ASA Class:: Patient with severe systemic disease Examination indicates no changes. AIRWAY: Airway Visualization of Uvula: Yes Mouth opening greater than 2 fingerbreadths: Yes Neck Full Range of Motion: Yes LUNGS: Lungs clear to auscultation CARDIAC: Regular rhythm,Regular rate Provisional Diagnosis/Treatment Plan: colonoscopy, possible biopsies SEDATION GOAL: Moderate This H&P can be found in the Electronic Medical Record. SIGNATURE: Nevaeh Kitchen MD PATIENT NAME: Deepa Abraham DATE: November 19, 2022 TIME: 7:33 AM Source Note - Nevaeh Kitchen MD - 11/19/2022 8:15 AM EDT HISTORY AND PHYSICAL Deepa Abraham 1950 REFERRING PHYSICIAN: Carol Gutierrez,* CHIEF COMPLAINT: Consult (CONSTIPATION, SCREENING FOR COLON CANCER) HPI: The patient is a 72 year old male referred for endoscopy. Deepa notes intermittent constipation. He states that he would not have a bowel movement for up to three days. He has had at least two colonoscopies in the past for which colon cleansing preparation was suboptimal. He last had a colonoscopy in 2013. The patient denies blood in stools, denies chronic abdominal pain, and denies changes in bowel habits. The patient notes no colon cancer in immediate family. His past medical history is significant for: CAD, CKD, diabetes (with persistently elevated HgbA1c), HTN, Parkinson's, BMI >35 PAST MEDICAL HISTORY PAST MEDICAL HISTORY Diagnosis Date Aortic valve sclerosis Atrial fibrillation ([facility]) Dr. Persaud? CAD (coronary artery disease) CKD stage G3b/A1, GFR 30 - 44 and albumin creatinine ratio <30 mg/g Constipation Depression DM type 2 (diabetes mellitus, type 2) ([facility]) ~2007 [facility] Essential hypertension, benign ~10 years Lymphedema of both lower extremities Mild cognitive impairment Obesity Onychomycosis CONCHITA (obstructive sleep apnea) refusing CPAP Other and unspecified hyperlipidemia Overactive bladder Dr. Swanson Parkinson's disease ([facility]) Dr. Sandoval PAST SURGICAL HISTORY PAST SURGICAL HISTORY Procedure Laterality Date IMPLANT MESH OPN HERNIA RPR/DEBRIDEMENT CLOSURE 03/02/1997 left REMV CATARACT EXTRACAP,INSERT LENS Bilateral 2017 RPR NONUNION/MALUNION RADIUS&ULNA W/O AUTOGRAF 03/02/1978 left and right TOTAL KNEE REPLACEMENT Right surgery x 2 CURRENT MEDICATIONS Current Outpatient Medications Medication Sig carbidopa-levodopa (SINEMET 25-100) 25-100 mg per tablet Take 1.5 tablets by mouth three times daily. Pramipexole 0.75 mg tablet Take 1 tablet by mouth daily at bedtime. Melatonin 5 mg cap Take 1 capsule by mouth daily at bedtime. donepezil (ARICEPT) 10 mg tablet Take 1 tablet by mouth once daily. insulin 50/50 lispro protamine-lispro units/mL (HUMALOG MIX 50-50 INSULN U-100) 100 unit/mL suspension 32 units at breakfast, 22 units at lunch and 33 units at dinner. metFORMIN ER (GLUMETZA) 500 mg 24 hr tablet Take 2 tablets by mouth twice daily. venlafaxine (EFFEXOR) 75 mg tablet Take 75 mg by mouth twice daily. calcium carbonate-vitamin D3 (OYSTER SHELL CALCIUM-VIT D3) 500 mg-5 mcg (200 unit) pwpk Take 1 tablet by mouth once daily. rosuvastatin (CRESTOR) 20 mg tablet Take 20 mg by mouth once daily. icosapent ethyl (VASCEPA) 1 gram capsule Take 2 g by mouth twice daily with meals. mirabegron (MYRBETRIQ) 50 mg Tb24 Take 50 mg by mouth once daily. losartan (COZAAR) 25 mg tablet Take 1 tablet by mouth once daily. Lancets (MICROLET LANCET) lancets Test blood sugar(s) 1 times daily. Dx: 250.00 Insulin: No Cholecalciferol, Vitamin D3, 2,000 unit cap Take 2,000 Units by mouth once daily. blood sugar diagnostic (EASY TOUCH) test strip Use to check blood sugars twice a day Dx: 250.00 Insulin: No LORATADINE (CLARITIN ORAL) Take by mouth as needed. ASPIRIN 81 MG ORAL TAB Take one(1) tablet daily. No current facility-administered medications for this visit. ALLERGIES: Lipitor [Atorvastatin Calcium], Lisinopril, Pravachol [Pravastatin], and Ranitidine PERSONAL HISTORY: SOCIAL HISTORY Social History Tobacco Use Smoking status: Never Smokeless tobacco: Never Vaping Use Vaping Use: Never used Substance Use Topics Alcohol use: Yes Comment: occasional Drug use: No FAMILY HISTORY FAMILY HISTORY Problem Relation Age of Onset Heart disease Mother Cancer Father Lung cancer (smoker). Hypertension Father Colon Cancer Other none known The review of systems data was entered by the nurse and reviewed by nh Nursing Notes: Carmen Iqbal LPN 10/21/2022 10:32 AM Signed REVIEW OF SYSTEMS: General: The patient NOTES fatigue, denies weight loss, denies weight gain, NOTES feeling hot, and NOTES feelings of cold. Eyes: The patient denies glaucoma, NOTES eye injury/surgery, wears glasses or contacts. Ear/Nose/Throat: The patient NOTES allergies, NOTES hayfever, denies ear infections, and denies bloody noses. Cardiovascular: The patient denies chest pain, denies heart disease, NOTES high blood pressure,denies cardiac stent, denies prior heart attack, denies irregular heart beat, denies high cholesterol, denies poor circulation, denies heart failure, other cardiac issues, NOTES claudication, denies cold feet, denies peripheral arterial stent. Respiratory: The patient denies tuberculosis, denies pneumonia, denies frequent cough, denies pulmonary embolism, denies shortness of breath, and denies coughing up blood. Gastrointestinal: The patient NOTES difficulty swallowing, denies acid reflux, denies ulcers, denies vomiting, denies jaundice/hepatitis, denies gallbladder problems, denies black or tarry stools, denies hemorrhoids, denies bleeding from rectum, denies diverticulitis, NOTES constipation, NOTES diarrhea, NOTES loss of stool control, and denies hernias. Kidney/Bladder: The patient denies kidney stones, denies urine infections, and denies bloody urine. Skin: The patient denies a history of skin cancer, denies bleeding/changing moles, and NOTES a history of skin rash. Neurologic: The patient denies a history of epilepsy/convulsions, NOTES headaches, denies head/spinal injuries, and denies stroke/TIA. Psychiatric: The patient denies psychiatric medications, NOTES depression, and NOTES voices, denies substance abuse. Endocrine: The patient denies thyroid disorders, denies diabetes, and denies hormonal problems. Hematologic: The patient denies a history of bruising, denies bleeding, and denies anemia, denies blood clots. Infections: The patient NOTES a history of measles and mumps, denies rheumatic fever, and denies sexually transmitted diseases. Musculoskeletal: The patient denies back pain/injury, NOTES back problems, denies sciatica, NOTES knee/foot trouble, denies arthritis, or denies gout. When was patient's last Mammogram screening? N/A Last Colonoscopy: 2014 Carmen Iqbal LPN PHYSICAL EXAMINATION: General: The patient is 72 year old male, well nourished, well hydrated in no acute distress. The patient is oriented to time, place, and person. VITALS: Blood pressure 140/78, pulse 98, temperature 36.6 C (97.9 F), height 182.9 cm (6'), weight 119.6 kg (263 lb 9.6 oz), SpO2 99 %. Body mass index is 35.75 kg/m . Head: Normal cephalic, atraumatic Eyes: pupils are equally round, sclera are clear/anicteric, wearing glasses Neck is supple with no tracheal deviation Cardiac: normal heart sounds, regular rate Respiratory: Normal respiratory excursion and pattern. Abdominal exam: benign Extremities: no clubbing, cyanosis or edema. Neuro: non focal Psych: normal mood IMPRESSION: screening for colon cancer PLAN: I have discussed the above with the patient. I have offered colonoscopy , possible biopsies I have explained the procedure to the patient. I have counseled the patient as to the risks of the procedure, including but not limited to: infection, bleeding, injury to any intrabdominal organs such as liver/spleen, perforation of the GI tract, inability to complete the procedure, complications of anesthesia, etc. - the patient understands. The patient wishes to proceed. I have answered all questions to the patient s satisfaction and the patient has no further questions. Diagnoses: (K59.00) Constipation, unspecified constipation type (Z12.11) Screening for colon cancer Nevaeh Kitchen MD HISTORY AND PHYSICAL Deepa Abraham 1950 REFERRING PHYSICIAN: Carol Gutierrez,* CHIEF COMPLAINT: Consult (CONSTIPATION, SCREENING FOR COLON CANCER) HPI: The patient is a 72 year old male referred for endoscopy. Deepa notes intermittent constipation. He states that he would not have a bowel movement for up to three days. He has had at least two colonoscopies in the past for which colon cleansing preparation was suboptimal. He last had a colonoscopy in 2013. The patient denies blood in stools, denies chronic abdominal pain, and denies changes in bowel habits. The patient notes no colon cancer in immediate family. His past medical history is significant for: CAD, CKD, diabetes (with persistently elevated HgbA1c), HTN, Parkinson's, BMI >35 PAST MEDICAL HISTORY PAST MEDICAL HISTORY Diagnosis Date Aortic valve sclerosis Atrial fibrillation (HCC) Dr. Persaud? CAD (coronary artery disease) CKD stage G3b/A1, GFR 30 - 44 and albumin creatinine ratio <30 mg/g Constipation Depression DM type 2 (diabetes mellitus, type 2) ([facility]) ~2007 [facility] Essential hypertension, benign ~10 years Lymphedema of both lower extremities Mild cognitive impairment Obesity Onychomycosis CONCHITA (obstructive sleep apnea) refusing CPAP Other and unspecified hyperlipidemia Overactive bladder Dr. Swanson Parkinson's disease ([facility]) Dr. Sandoval PAST SURGICAL HISTORY PAST SURGICAL HISTORY Procedure Laterality Date IMPLANT MESH OPN HERNIA RPR/DEBRIDEMENT CLOSURE 03/02/1997 left REMV CATARACT EXTRACAP,INSERT LENS Bilateral 2017 RPR NONUNION/MALUNION RADIUS&ULNA W/O AUTOGRAF 03/02/1978 left and right TOTAL KNEE REPLACEMENT Right surgery x 2 CURRENT MEDICATIONS Current Outpatient Medications Medication Sig carbidopa-levodopa (SINEMET 25-100) 25-100 mg per tablet Take 1.5 tablets by mouth three times daily. Pramipexole 0.75 mg tablet Take 1 tablet by mouth daily at bedtime. Melatonin 5 mg cap Take 1 capsule by mouth daily at bedtime. donepezil (ARICEPT) 10 mg tablet Take 1 tablet by mouth once daily. insulin 50/50 lispro protamine-lispro units/mL (HUMALOG MIX 50-50 INSULN U-100) 100 unit/mL suspension 32 units at breakfast, 22 units at lunch and 33 units at dinner. metFORMIN ER (GLUMETZA) 500 mg 24 hr tablet Take 2 tablets by mouth twice daily. venlafaxine (EFFEXOR) 75 mg tablet Take 75 mg by mouth twice daily. calcium carbonate-vitamin D3 (OYSTER SHELL CALCIUM-VIT D3) 500 mg-5 mcg (200 unit) pwpk Take 1 tablet by mouth once daily. rosuvastatin (CRESTOR) 20 mg tablet Take 20 mg by mouth once daily. icosapent ethyl (VASCEPA) 1 gram capsule Take 2 g by mouth twice daily with meals. mirabegron (MYRBETRIQ) 50 mg Tb24 Take 50 mg by mouth once daily. losartan (COZAAR) 25 mg tablet Take 1 tablet by mouth once daily. Lancets (MICROLET LANCET) lancets Test blood sugar(s) 1 times daily. Dx: 250.00 Insulin: No Cholecalciferol, Vitamin D3, 2,000 unit cap Take 2,000 Units by mouth once daily. blood sugar diagnostic (EASY TOUCH) test strip Use to check blood sugars twice a day Dx: 250.00 Insulin: No LORATADINE (CLARITIN ORAL) Take by mouth as needed. ASPIRIN 81 MG ORAL TAB Take one(1) tablet daily. No current facility-administered medications for this visit. ALLERGIES: Lipitor [Atorvastatin Calcium], Lisinopril, Pravachol [Pravastatin], and Ranitidine PERSONAL HISTORY: SOCIAL HISTORY Social History Tobacco Use Smoking status: Never Smokeless tobacco: Never Vaping Use Vaping Use: Never used Substance Use Topics Alcohol use: Yes Comment: occasional Drug use: No FAMILY HISTORY FAMILY HISTORY Problem Relation Age of Onset Heart disease Mother Cancer Father Lung cancer (smoker). Hypertension Father Colon Cancer Other none known The review of systems data was entered by the nurse and reviewed by me Nursing Notes: Carmen Iqbal LPN 10/21/2022 10:32 AM Signed REVIEW OF SYSTEMS: General: The patient NOTES fatigue, denies weight loss, denies weight gain, NOTES feeling hot, and NOTES feelings of cold. Eyes: The patient denies glaucoma, NOTES eye injury/surgery, wears glasses or contacts. Ear/Nose/Throat: The patient NOTES allergies, NOTES hayfever, denies ear infections, and denies bloody noses. Cardiovascular: The patient denies chest pain, denies heart disease, NOTES high blood pressure,denies cardiac stent, denies prior heart attack, denies irregular heart beat, denies high cholesterol, denies poor circulation, denies heart failure, other cardiac issues, NOTES claudication, denies cold feet, denies peripheral arterial stent. Respiratory: The patient denies tuberculosis, denies pneumonia, denies frequent cough, denies pulmonary embolism, denies shortness of breath, and denies coughing up blood. Gastrointestinal: The patient NOTES difficulty swallowing, denies acid reflux, denies ulcers, denies vomiting, denies jaundice/hepatitis, denies gallbladder problems, denies black or tarry stools, denies hemorrhoids, denies bleeding from rectum, denies diverticulitis, NOTES constipation, NOTES diarrhea, NOTES loss of stool control, and denies hernias. Kidney/Bladder: The patient denies kidney stones, denies urine infections, and denies bloody urine. Skin: The patient denies a history of skin cancer, denies bleeding/changing moles, and NOTES a history of skin rash. Neurologic: The patient denies a history of epilepsy/convulsions, NOTES headaches, denies head/spinal injuries, and denies stroke/TIA. Psychiatric: The patient denies psychiatric medications, NOTES depression, and NOTES voices, denies substance abuse. Endocrine: The patient denies thyroid disorders, denies diabetes, and denies hormonal problems. Hematologic: The patient denies a history of bruising, denies bleeding, and denies anemia, denies blood clots. Infections: The patient NOTES a history of measles and mumps, denies rheumatic fever, and denies sexually transmitted diseases. Musculoskeletal: The patient denies back pain/injury, NOTES back problems, denies sciatica, NOTES knee/foot trouble, denies arthritis, or denies gout. When was patient's last Mammogram screening? N/A Last Colonoscopy: 2014 Carmen Iqbal LPN PHYSICAL EXAMINATION: General: The patient is 72 year old male, well nourished, well hydrated in no acute distress. The patient is oriented to time, place, and person. VITALS: Blood pressure 140/78, pulse 98, temperature 36.6 C (97.9 F), height 182.9 cm (6'), weight 119.6 kg (263 lb 9.6 oz), SpO2 99 %. Body mass index is 35.75 kg/m . Head: Normal cephalic, atraumatic Eyes: pupils are equally round, sclera are clear/anicteric, wearing glasses Neck is supple with no tracheal deviation Cardiac: normal heart sounds, regular rate Respiratory: Normal respiratory excursion and pattern. Abdominal exam: benign Extremities: no clubbing, cyanosis or edema. Neuro: non focal Psych: normal mood IMPRESSION: screening for colon cancer PLAN: I have discussed the above with the patient. I have offered colonoscopy , possible biopsies I have explained the procedure to the patient. I have counseled the patient as to the risks of the procedure, including but not limited to: infection, bleeding, injury to any intrabdominal organs such as liver/spleen, perforation of the GI tract, inability to complete the procedure, complications of anesthesia, etc. - the patient understands. The patient wishes to proceed. I have answered all questions to the patient s satisfaction and the patient has no further questions. Diagnoses: (K59.00) Constipation, unspecified constipation type (Z12.11) Screening for colon cancer Nevaeh Kitchen MD documented in this encounter [facility] 10-23-2022 Miscellaneous Notes Ordered Pt called to request order for speech therapy recommended by Dr. Perez at 10/16/[address] Perez when order placed route message to [place] [id number] Admin Pool so pt may be contacted to schedule. documented in this encounter [facility] 10-21-2022 Note HNO ID: [id number] Author: Nevaeh Kitchen MD Service: ? Author Type: Physician Type: Progress Notes Filed: 10/25/2022 4:42 PM Note Text: HISTORY AND PHYSICAL Deepa Abraham 1950 REFERRING PHYSICIAN: Carol Gutierrez,* CHIEF COMPLAINT: Consult (CONSTIPATION, SCREENING FOR COLON CANCER) HPI: The patient is a 72 year old male referred for endoscopy. Deepa notes intermittent constipation. He states that he would not have a bowel movement for up to three days. He has had at least two colonoscopies in the past for which colon cleansing preparation was suboptimal. He last had a colonoscopy in 2013. The patient denies blood in stools, denies chronic abdominal pain, and denies changes in bowel habits. The patient notes no colon cancer in immediate family. His past medical history is significant for: CAD, CKD, diabetes (with persistently elevated HgbA1c), HTN, Parkinson's, BMI >35 PAST MEDICAL HISTORY Diagnosis Date Aortic valve sclerosis Atrial fibrillation ([facility]) Dr. Persaud? CAD (coronary artery disease) CKD stage G3b/A1, GFR 30 - 44 and albumin creatinine ratio <30 mg/g Constipation Depression DM type 2 (diabetes mellitus, type 2) ([facility]) ~2007 [facility] Essential hypertension, benign ~10 years Lymphedema of both lower extremities Mild cognitive impairment Obesity Onychomycosis CONCHITA (obstructive sleep apnea) refusing CPAP Other and unspecified hyperlipidemia Overactive bladder Dr. Swanson Parkinson's disease ([facility]) Dr. Sandoval PAST SURGICAL HISTORY Procedure Laterality Date IMPLANT MESH OPN HERNIA RPR/DEBRIDEMENT CLOSURE 03/02/1997 left REMV CATARACT EXTRACAP,INSERT LENS Bilateral 2017 RPR NONUNION/MALUNION RADIUSANDULNA W/O AUTOGRAF 03/02/1978 left and right TOTAL KNEE REPLACEMENT Right surgery x 2 Current Outpatient Medications Medication Sig carbidopa-levodopa (SINEMET 25-100) 25-100 mg per tablet Take 1.5 tablets by mouth three times daily. Pramipexole 0.75 mg tablet Take 1 tablet by mouth daily at bedtime. Melatonin 5 mg cap Take 1 capsule by mouth daily at bedtime. donepezil (ARICEPT) 10 mg tablet Take 1 tablet by mouth once daily. insulin 50/50 lispro protamine-lispro units/mL (HUMALOG MIX 50-50 INSULN U-100) 100 unit/mL suspension 32 units at breakfast, 22 units at lunch and 33 units at dinner. metFORMIN ER (GLUMETZA) 500 mg 24 hr tablet Take 2 tablets by mouth twice daily. venlafaxine (EFFEXOR) 75 mg tablet Take 75 mg by mouth twice daily. calcium carbonate-vitamin D3 (OYSTER SHELL CALCIUM-VIT D3) 500 mg-5 mcg (200 unit) pwpk Take 1 tablet by mouth once daily. rosuvastatin (CRESTOR) 20 mg tablet Take 20 mg by mouth once daily. icosapent ethyl (VASCEPA) 1 gram capsule Take 2 g by mouth twice daily with meals. mirabegron (MYRBETRIQ) 50 mg Tb24 Take 50 mg by mouth once daily. losartan (COZAAR) 25 mg tablet Take 1 tablet by mouth once daily. Lancets (MICROLET LANCET) lancets Test blood sugar(s) 1 times daily. Dx: 250.00 Insulin: No Cholecalciferol, Vitamin D3, 2,000 unit cap Take 2,000 Units by mouth once daily. blood sugar diagnostic (EASY TOUCH) test strip Use to check blood sugars twice a day Dx: 250.00 Insulin: No LORATADINE (CLARITIN ORAL) Take by mouth as needed. ASPIRIN 81 MG ORAL TAB Take one(1) tablet daily. No current facility-administered medications for this visit. ALLERGIES: Lipitor [Atorvastatin Calcium], Lisinopril, Pravachol [Pravastatin], and Ranitidine PERSONAL HISTORY: Social History Tobacco Use Smoking status: Never Smokeless tobacco: Never Vaping Use Vaping Use: Never used Substance Use Topics Alcohol use: Yes Comment: occasional Drug use: No FAMILY HISTORY Problem Relation Age of Onset Heart disease Mother Cancer Father Lung cancer (smoker). Hypertension Father Colon Cancer Other none known The review of systems data was entered by the nurse and reviewed by nh Nursing Notes: Carmen IqbalMARGARETH 10/21/2022 10:32 AM Signed REVIEW OF SYSTEMS: General: The patient NOTES fatigue, denies weight loss, denies weight gain, NOTES feeling hot, and NOTES feelings of cold. Eyes: The patient denies glaucoma, NOTES eye injury/surgery, wears glasses or contacts. Ear/Nose/Throat: The patient NOTES allergies, NOTES hayfever, denies ear infections, and denies bloody noses. Cardiovascular: The patient denies chest pain, denies heart disease, NOTES high blood pressure,denies cardiac stent, denies prior heart attack, denies irregular heart beat, denies high cholesterol, denies poor circulation, denies heart failure, other cardiac issues, NOTES claudication, denies cold feet, denies peripheral arterial stent. Respiratory: The patient denies tuberculosis, denies pneumonia, denies frequent cough, denies pulmonary embolism, denies shortness of breath, and denies coughing up blood. Gastrointestinal: The patient NOTES difficulty swallowing, (more content not included)... [facility] 10-21-2022 History of Present illness Narrative HISTORY AND PHYSICAL Deepa Casasman 1950 REFERRING PHYSICIAN: Carol Gutierrez,* CHIEF COMPLAINT: Consult (CONSTIPATION, SCREENING FOR COLON CANCER) HPI: The patient is a 72 year old male referred for endoscopy. Deepa notes intermittent constipation. He states that he would not have a bowel movement for up to three days. He has had at least two colonoscopies in the past for which colon cleansing preparation was suboptimal. He last had a colonoscopy in 2013. The patient denies blood in stools, denies chronic abdominal pain, and denies changes in bowel habits. The patient notes no colon cancer in immediate family. His past medical history is significant for: CAD, CKD, diabetes (with persistently elevated HgbA1c), HTN, Parkinson's, BMI >35 PAST MEDICAL HISTORY Diagnosis Date Aortic valve sclerosis Atrial fibrillation ([facility]) Dr. Persaud? CAD (coronary artery disease) CKD stage G3b/A1, GFR 30 - 44 and albumin creatinine ratio <30 mg/g Constipation Depression DM type 2 (diabetes mellitus, type 2) ([facility]) ~2007 [facility] Essential hypertension, benign ~10 years Lymphedema of both lower extremities Mild cognitive impairment Obesity Onychomycosis CONCHITA (obstructive sleep apnea) refusing CPAP Other and unspecified hyperlipidemia Overactive bladder Dr. Swanson Parkinson's disease (HCC) Dr. Sandoval PAST SURGICAL HISTORY Procedure Laterality Date IMPLANT MESH OPN HERNIA RPR/DEBRIDEMENT CLOSURE 03/02/1997 left REMV CATARACT EXTRACAP,INSERT LENS Bilateral 2017 RPR NONUNION/MALUNION RADIUS&ULNA W/O AUTOGRAF 03/02/1978 left and right TOTAL KNEE REPLACEMENT Right surgery x 2 Current Outpatient Medications Medication Sig carbidopa-levodopa (SINEMET 25-100) 25-100 mg per tablet Take 1.5 tablets by mouth three times daily. Pramipexole 0.75 mg tablet Take 1 tablet by mouth daily at bedtime. Melatonin 5 mg cap Take 1 capsule by mouth daily at bedtime. donepezil (ARICEPT) 10 mg tablet Take 1 tablet by mouth once daily. insulin 50/50 lispro protamine-lispro units/mL (HUMALOG MIX 50-50 INSULN U-100) 100 unit/mL suspension 32 units at breakfast, 22 units at lunch and 33 units at dinner. metFORMIN ER (GLUMETZA) 500 mg 24 hr tablet Take 2 tablets by mouth twice daily. venlafaxine (EFFEXOR) 75 mg tablet Take 75 mg by mouth twice daily. calcium carbonate-vitamin D3 (OYSTER SHELL CALCIUM-VIT D3) 500 mg-5 mcg (200 unit) pwpk Take 1 tablet by mouth once daily. rosuvastatin (CRESTOR) 20 mg tablet Take 20 mg by mouth once daily. icosapent ethyl (VASCEPA) 1 gram capsule Take 2 g by mouth twice daily with meals. mirabegron (MYRBETRIQ) 50 mg Tb24 Take 50 mg by mouth once daily. losartan (COZAAR) 25 mg tablet Take 1 tablet by mouth once daily. Lancets (MICROLET LANCET) lancets Test blood sugar(s) 1 times daily. Dx: 250.00 Insulin: No Cholecalciferol, Vitamin D3, 2,000 unit cap Take 2,000 Units by mouth once daily. blood sugar diagnostic (EASY TOUCH) test strip Use to check blood sugars twice a day Dx: 250.00 Insulin: No LORATADINE (CLARITIN ORAL) Take by mouth as needed. ASPIRIN 81 MG ORAL TAB Take one(1) tablet daily. No current facility-administered medications for this visit. ALLERGIES: Lipitor [Atorvastatin Calcium], Lisinopril, Pravachol [Pravastatin], and Ranitidine PERSONAL HISTORY: Social History Tobacco Use Smoking status: Never Smokeless tobacco: Never Vaping Use Vaping Use: Never used Substance Use Topics Alcohol use: Yes Comment: occasional Drug use: No FAMILY HISTORY Problem Relation Age of Onset Heart disease Mother Cancer Father Lung cancer (smoker). Hypertension Father Colon Cancer Other none known The review of systems data was entered by the nurse and reviewed by me Nursing Notes: Carmen Iqbal LPN 10/21/2022 10:32 AM Signed REVIEW OF SYSTEMS: General: The patient NOTES fatigue, denies weight loss, denies weight gain, NOTES feeling hot, and NOTES feelings of cold. Eyes: The patient denies glaucoma, NOTES eye injury/surgery, wears glasses or contacts. Ear/Nose/Throat: The patient NOTES allergies, NOTES hayfever, denies ear infections, and denies bloody noses. Cardiovascular: The patient denies chest pain, denies heart disease, NOTES high blood pressure,denies cardiac stent, denies prior heart attack, denies irregular heart beat, denies high cholesterol, denies poor circulation, denies heart failure, other cardiac issues, NOTES claudication, denies cold feet, denies peripheral arterial stent. Respiratory: The patient denies tuberculosis, denies pneumonia, denies frequent cough, denies pulmonary embolism, denies shortness of breath, and denies coughing up blood. Gastrointestinal: The patient NOTES difficulty swallowing, denies acid reflux, denies ulcers, denies vomiting, denies jaundice/hepatitis, denies gallbladder problems, denies black or tarry stools, denies hemorrhoids, denies bleeding from rectum, denies diverticulitis, NOTES constipation, NOTES diarrhea, NOTES loss of stool control, and denies hernias. Kidney/Bladder: The patient denies kidney stones, denies urine infections, and denies bloody urine. Skin: The patient denies a history of skin cancer, denies bleeding/changing moles, and NOTES a history of skin rash. Neurologic: The patient denies a history of epilepsy/convulsions, NOTES headaches, denies head/spinal injuries, and denies stroke/TIA. Psychiatric: The patient denies psychiatric medications, NOTES depression, and NOTES voices, denies substance abuse. Endocrine: The patient denies thyroid disorders, denies diabetes, and denies hormonal problems. Hematologic: The patient denies a history of bruising, denies bleeding, and denies anemia, denies blood clots. Infections: The patient NOTES a history of measles and mumps, denies rheumatic fever, and denies sexually transmitted diseases. Musculoskeletal: The patient denies back pain/injury, NOTES back problems, denies sciatica, NOTES knee/foot trouble, denies arthritis, or denies gout. When was patient's last Mammogram screening? N/A Last Colonoscopy: 2014 Carmen Iqbal LPN PHYSICAL EXAMINATION: General: The patient is 72 year old male, well nourished, well hydrated in no acute distress. The patient is oriented to time, place, and person. VITALS: Blood pressure 140/78, pulse 98, temperature 36.6 C (97.9 F), height 182.9 cm (6'), weight 119.6 kg (263 lb 9.6 oz), SpO2 99 %. Body mass index is 35.75 kg/m . Head: Normal cephalic, atraumatic Eyes: pupils are equally round, sclera are clear/anicteric, wearing glasses Neck is supple with no tracheal deviation Cardiac: normal heart sounds, regular rate Respiratory: Normal respiratory excursion and pattern. Abdominal exam: benign Extremities: no clubbing, cyanosis or edema. Neuro: non focal Psych: normal mood Assessment IMPRESSION: screening for colon cancer PLAN: I have discussed the above with the patient. I have offered colonoscopy , possible biopsies I have explained the procedure to the patient. I have counseled the patient as to the risks of the procedure, including but not limited to: infection, bleeding, injury to any intrabdominal organs such as liver/spleen, perforation of the GI tract, inability to complete the procedure, complications of anesthesia, etc. - the patient understands. The patient wishes to proceed. I have answered all questions to the patient s satisfaction and the patient has no further questions. My clinic staff has educated the patient as to the colon cleansing regimen and I have prescribed Golytely for the colon cleansing solution. The patient will be scheduled for the procedure at [facility]. Diagnoses: (K59.00) Constipation, unspecified constipation type (Z12.11) Screening for colon cancer I have confirmed and edited as necessary, the PFSH and ROS obtained by others. Consultation requested by Dr. Carol Gutierrez for an opinion regarding patient's constipation and screening for colon cancer. My final recommendations will be communicated back to the requesting physician by way of shared Medical record or letter to requesting physician via US mail. Return to Clinic: The patient will be scheduled as above. Medical Decision Making: Problems: Low: Stable chronic illness Risk: Low: Low risk from testing/treatment Medical Decision Making Level: 3 - Low Nevaeh Kitchen MD documented in this encounter [facility] 10-21-2022 Instructions Nevaeh Kitchen MD - 10/21/2022 10:43 AM EDT Images from the original note were not included. Bowel Preparation Instructions for: Golytely, Nulytely, Trilyte or Colyte (polyethylene glycol 3350 and electrolytes) IF YOU DO NOT FOLLOW THESE DIRECTIONS, YOUR COLONOSCOPY WILL BE CANCELLED. [place] Instructions: Your bowel must be empty so that your doctor can clearly view your colon. Follow all of the instructions in this handout EXACTLY as they are written. Do NOT eat any solid food the ENTIRE day before your colonoscopy. Drink only clear liquids. Buy your bowel preparation at least 5 days before your colonoscopy. TRANSPORTATION on the Day of Your Exam A responsible person MUST be present with you at Check In prior to your colonoscopy and REMAIN in the endoscopy area until you are discharged. You are NOT ALLOWED to drive, take a taxi or bus, or leave the Endoscopy Center ALONE. If you do not have a responsible crew truck driver (family member or friend) with you to take you home, your exam cannot be done with sedation and will be cancelled. Please bring a list of all of your current medications, including any Over-the Counter medications with you. Medications If you take insulin, diabetic medications or blood thinners such as Coumadin (warfarin), Plavix (clopidogrel), Ticlid (ticlopidine hydrochloride), Agrylin (anagrelide), Xarelto (Rivaroxaban), Pradaxa (Dabigatran), Eliquis (Apixaban), and Effient (Prasugrel). You MUST call the doctors who orders those medicines for instructions on altering the dosage before your colonoscopy. All other medications should be taken the day of the exam with a sip of water including ASPIRIN. Five (5) Days Before Your Colonoscopy Do NOT take medicines that stop diarrhea - such as Imodium, Kaopectate, or Pepto Bismol. Do NOT take fiber supplements - such as Metamucil, Citrucel, or Perdiem. Do NOT take products that contain iron - such as multi-vitamins (the label lists what is in the products). Do NOT take Vitamin E. Buy the prescription bowel preparation solution at your local pharmacy or drugstore pharmacy. 1 01/2019 Bowel Preparation Instructions for: Golytely, Nulytely, Trilyte or Colyte (polyethylene glycol 3350 and electrolytes) Three (3) Days Before Your Colonoscopy Do NOT eat high-fiber foods - such as popcorn, beans, seeds (flax, sunflower, quinoa), multigrain bread, nuts, salad/vegetables, or fresh and dried fruit. One (1) Day Before Your Colonoscopy Only drink clear liquids the ENTIRE DAY before your colonoscopy. Do NOT eat any solid foods. Drink at least 8 ounces of clear liquids every hour after waking up. The clear liquids you can drink include: Clear Liquid (NO RED LIQUIDS) DO NOT DRINK Gatorade, Pedialyte or Powerade Clear broth or bouillon Coffee or tea (no milk or non-dairy creamer) Carbonated and non-carbonated soft drinks [employer] or other fruit flavored drinks Strained fruit juices (no pulp) Jell-O, popsicles, hard candy Water Alcohol Milk or non-dairy creamers Noodles or vegetables in soup Juice with pulp Liquid you cannot see through Do not use tobacco/vaping products The bowel preparation solution will be consumed in two parts. Mix the solution the evening before your colonoscopy and refrigerate before drinking. You may add the flavor pack that came with the bowel preparation. Do NOT add ice, sugar or any other flavorings to the solution. Part 1 At 6:00 PM - Evening before your colonoscopy Drink an 8-oz glass of bowel preparation every 10 minutes for a total of 8 glasses. You may continue to drink clear liquids until midnight. Part 2 On the day of your colonoscopy you may drink clear liquids up to (three) 3 hours before your procedure. 4 1/2 hours before your colonoscopy Drink an 8-oz glass of bowel preparation every 10 minutes for a total of 8 glasses. Fifteen (15) minutes later, drink an 8-oz glass of clear liquids every 15 minutes for a total of 2 glasses. You may continue to drink clear liquids up to (three) 3 hours before your exam. 2 01/2019 documented in this encounter [facility] 10-21-2022 Nurse Note REVIEW OF SYSTEMS: General: The patient NOTES fatigue, denies weight loss, denies weight gain, NOTES feeling hot, and NOTES feelings of cold. Eyes: The patient denies glaucoma, NOTES eye injury/surgery, wears glasses or contacts. Ear/Nose/Throat: The patient NOTES allergies, NOTES hayfever, denies ear infections, and denies bloody noses. Cardiovascular: The patient denies chest pain, denies heart disease, NOTES high blood pressure,denies cardiac stent, denies prior heart attack, denies irregular heart beat, denies high cholesterol, denies poor circulation, denies heart failure, other cardiac issues, NOTES claudication, denies cold feet, denies peripheral arterial stent. Respiratory: The patient denies tuberculosis, denies pneumonia, denies frequent cough, denies pulmonary embolism, denies shortness of breath, and denies coughing up blood. Gastrointestinal: The patient NOTES difficulty swallowing, denies acid reflux, denies ulcers, denies vomiting, denies jaundice/hepatitis, denies gallbladder problems, denies black or tarry stools, denies hemorrhoids, denies bleeding from rectum, denies diverticulitis, NOTES constipation, NOTES diarrhea, NOTES loss of stool control, and denies hernias. Kidney/Bladder: The patient denies kidney stones, denies urine infections, and denies bloody urine. Skin: The patient denies a history of skin cancer, denies bleeding/changing moles, and NOTES a history of skin rash. Neurologic: The patient denies a history of epilepsy/convulsions, NOTES headaches, denies head/spinal injuries, and denies stroke/TIA. Psychiatric: The patient denies psychiatric medications, NOTES depression, and NOTES voices, denies substance abuse. Endocrine: The patient denies thyroid disorders, denies diabetes, and denies hormonal problems. Hematologic: The patient denies a history of bruising, denies bleeding, and denies anemia, denies blood clots. Infections: The patient NOTES a history of measles and mumps, denies rheumatic fever, and denies sexually transmitted diseases. Musculoskeletal: The patient denies back pain/injury, NOTES back problems, denies sciatica, NOTES knee/foot trouble, denies arthritis, or denies gout. When was patient's last Mammogram screening? N/A Last Colonoscopy: 2014 Camren Iqbal LPN documented in this encounter [facility] 10-16-2022 Note HNO ID: [id number] Author: Micheal Perez MD Service: ? Author Type: Physician Type: Progress Notes Filed: 10/16/2022 2:18 PM Note Text: [facility] - NEW PATIENT EVALUATION Primary Care Provider: Carol Gutierrez MD [id number] [facility] [id number] Dear Carol Gutierrez MD: I had the pleasure of evaluating Mr. Abraham in our clinic today. As you know he is a 72 year old left-handed male who presents for evaluation of Parkinson's disease since 2020. He is seen with his . Subjective HISTORY OF PRESENT ILLNESS: Initial HPI His Parkinson's disease started with Restless Legs Syndrome and right sided bradykinesia and rigidity. The Restless Legs Syndrome has improved with pramipexole. He had some improvement when he started Sinemet. He has vivid dreams and dream enactment. He feels that his Parkinson's disease is under pretty good control. He has a lot of saliva and drooling. He needs to use a towel during the day and at night his pillow is wet. He has a lot of forgetfulness. He has been on Aricept 5 mg for memory. His nose runs when eating. He speech may bother him at times. Movement Disorders Medications Schedule - as of the start of the visit: Medications 8AM 2PM 11PM Sinemet 25/100 1.5 1.5 1.5 pramipexole 0.75 mg 1 Parkinson's Motor Complications Medication benefit onset: unclear Medication duration: unclear Wearing off: no Prior Anti-Parkinson Therapies Carbidopa/Levodopa Pramipexole Questionnaires In addition, the following areas that may be affected by abnormal involuntary movements were evaluated: Daily activities Difficulties with eatin (none) Difficulties in dressin (none) Difficulties with hygiene activities: 0 (none) Difficulties with handwritin (none) Difficulties with doing hobbies and other activities: 0 (none) Difficulties turning in bed: 0 (none) Difficulties getting out of bed, car or chair: Yes (mild) Tremors/Gait/Balance Shaking or tremors: Yes (slight) Walking and balance problems: Yes (mild) Number of falls in the Last Month: none Gait freezin (none) Autonomic/Pain Lightheadeness on standin (none) Urinary problems: Yes (moderate) Constipation problems: Yes (mild) Pain and other sensations: Speech/Swallowing Speech problems: Yes (slight) Drooling: Yes (moderate) Chewing and swallowing problems: 0 (none) Sleep/Fatigue Sleep problems: Yes (slight) Daytime sleepiness: Yes (mild) Fatigue: Yes (slight) Mood/Behavior Depression: PHQ-9 Score: 6 usually representing mild (5-9) depression. Anxiety: MABLE-7 Total Score: 4 usually representing no significant (0-4) anxiety. Finally, the following table shows the patient's overall global physical and mental health using the PROMIS scale: PROMIS-10 Flowsheet Row Office Visit from 10/16/2022 in Neurology Global Physical Health T Score 44.9 Global Mental Health T Score -- 0-10 Standard Pain Scale 4 *PROMIS-10 scoring scale: mean = 50, over 50 is above average, under 50 is below average In addition, the following Parkinson Lifestyle-associated features were evaluated: Conditions Prior to Dx: Depression: Yes Anxiety: Yes Melanoma: Yes Constipation: No Yelling: No Head Trauma: No Habits/exposures Prior to Dx Smoking: No Caffeinated coffee (1-cup+): Yes (and still do) Caffeinated soda/tea (2 cups+): Yes (and still do) Alcohol (1 bottle/shot/glass+): No Exercise (3x/wk+): No Ibuprofen use (1x/wk+): Yes (and still do) Pesticides: 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) 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) In addition, the following non-motor symptoms and palliative concerns were evaluated: Sleep/Fatigue: REM sleep behavior disorder: Yes Restless Legs Syndrome: Yes Leg swelling: Yes Has had some cellulitis in his legs and edema Impaired sense of smell: No Cognition: Cognitive impairment: yes MoCA Cognitive assessment: Hallucinations and delusions: no Apathy: yes Impulse control disorder: No Palliative Concerns: Caregiver burden: Spiritual concerns: Advanced directives on file: Palliative services: Therapy and Exercise: Last PT Date: Last OT Date: Last ST Date: Exercises Regularly: ALLERGIES Allergen Reactions - Lipitor [Atorvastat* Intolerance Muscle pain -- gone with stoppage - Lisinopril Cough - Pravachol [Pravasta* Intolerance Muscle pain -- also with Lipitor - Ranitidine Intolerance nausea Current Outpatient Medications Medication Sig - carbidopa-levodopa (SINEMET 25-100) 25-100 mg per tablet Take 1.5 tablets by mouth three times daily. - Pramipexole 0.75 mg tablet Take 1 tablet by mouth daily at bedtime. - insulin 50/50 lispro protamine-lispro units/mL (HUMALOG MIX 50-50 INSULN U-100) 100 unit/mL suspension 32 units at breakfast, 22 units at lunch and 33 units at dinner. - metFORMIN ER (GLUMETZA) 500 mg 24 hr tablet Take 2 tablets by mouth twice daily. - v (more content not included)... [facility] 10-16-2022 Instructions Micheal Perez MD - 10/16/2022 2:13 PM EDT It was a pleasure to see you today. We addressed the following diagnoses: Parkinson's disease (hcc) (primary encounter diagnosis) Restless legs syndrome (rls) Rbd (rem behavioral disorder) Constipation, unspecified constipation type Dementia without behavioral disturbance (hcc) My recommendations are as follows: 10/16/2022 Visit: Parkinson's disease - Conitnue Sinemet 25/100 1.5 tablets three times daily but change the schedule to a 5 hour interval Restless Legs Syndrome - Continue Mirapex (pramipexole) at bedtime REM Sleep Behavior Disorder - Try Melatonin 5 mg at bedtime Memory - Increase Aricept to 10 mg. May get MoCA assessment at next visit. Constipation - Use Miralax daily only use the Ducolax if you have not had a bowel movement for several days Soft Speech - Start Speech Therapy Movement Disorders Medication Schedule: Medications 8AM 1PM 6PM Bedtime Sinemet 25/100 1.5 1.5 1.5 pramipexole 0.75 mg 1 Melatonin 5 mg 1 donepezil 10 1 Return in about 3 months (around 01/16/2023) for Can be seen with JENNI. If there are any concerns before your next visit, please call or you can send a message through [employer]. You can also now schedule and select appointments through [employer]. Micheal Perez MD documented in this encounter [facility] 10-16-2022 History of Present illness Narrative [facility] - NEW PATIENT EVALUATION Primary Care Provider: Carol Gutierrez MD [id number] [facility] [id number] Dear Carol Gutierrez MD: I had the pleasure of evaluating Mr. Abraham in our clinic today. As you know he is a 72 year old left-handed male who presents for evaluation of Parkinson's disease since 2020. He is seen with his . Subjective HISTORY OF PRESENT ILLNESS: Initial HPI His Parkinson's disease started with Restless Legs Syndrome and right sided bradykinesia and rigidity. The Restless Legs Syndrome has improved with pramipexole. He had some improvement when he started Sinemet. He has vivid dreams and dream enactment. He feels that his Parkinson's disease is under pretty good control. He has a lot of saliva and drooling. He needs to use a towel during the day and at night his pillow is wet. He has a lot of forgetfulness. He has been on Aricept 5 mg for memory. His nose runs when eating. He speech may bother him at times. Movement Disorders Medications Schedule - as of the start of the visit: Medications 8AM 2PM 11PM Sinemet 25/100 1.5 1.5 1.5 pramipexole 0.75 mg 1 Parkinson's Motor Complications Medication benefit onset: unclear Medication duration: unclear Wearing off: no Prior Anti-Parkinson Therapies Carbidopa/Levodopa Pramipexole Questionnaires In addition, the following areas that may be affected by abnormal involuntary movements were evaluated: Daily activities Difficulties with eatin (none) Difficulties in dressin (none) Difficulties with hygiene activities: 0 (none) Difficulties with handwritin (none) Difficulties with doing hobbies and other activities: 0 (none) Difficulties turning in bed: 0 (none) Difficulties getting out of bed, car or chair: Yes (mild) Tremors/Gait/Balance Shaking or tremors: Yes (slight) Walking and balance problems: Yes (mild) Number of falls in the Last Month: none Gait freezin (none) Autonomic/Pain Lightheadeness on standin (none) Urinary problems: Yes (moderate) Constipation problems: Yes (mild) Pain and other sensations: Speech/Swallowing Speech problems: Yes (slight) Drooling: Yes (moderate) Chewing and swallowing problems: 0 (none) Sleep/Fatigue Sleep problems: Yes (slight) Daytime sleepiness: Yes (mild) Fatigue: Yes (slight) Mood/Behavior Depression: PHQ-9 Score: 6 usually representing mild (5-9) depression. Anxiety: MABLE-7 Total Score: 4 usually representing no significant (0-4) anxiety. Finally, the following table shows the patient's overall global physical and mental health using the PROMIS scale: PROMIS-10 Flowsheet Row Office Visit from 10/16/2022 in Neurology Global Physical Health T Score 44.9 Global Mental Health T Score -- 0-10 Standard Pain Scale 4 *PROMIS-10 scoring scale: mean = 50, over 50 is above average, under 50 is below average In addition, the following Parkinson Lifestyle-associated features were evaluated: Conditions Prior to Dx: Depression: Yes Anxiety: Yes Melanoma: Yes Constipation: No Yelling: No Head Trauma: No Habits/exposures Prior to Dx Smoking: No Caffeinated coffee (1-cup+): Yes (and still do) Caffeinated soda/tea (2 cups+): Yes (and still do) Alcohol (1 bottle/shot/glass+): No Exercise (3x/wk+): No Ibuprofen use (1x/wk+): Yes (and still do) Pesticides: 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) 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) In addition, the following non-motor symptoms and palliative concerns were evaluated: Sleep/Fatigue: REM sleep behavior disorder: Yes Restless Legs Syndrome: Yes Leg swelling: Yes Has had some cellulitis in his legs and edema Impaired sense of smell: No Cognition: Cognitive impairment: yes MoCA Cognitive assessment: Hallucinations and delusions: no Apathy: yes Impulse control disorder: No Palliative Concerns: Caregiver burden: Spiritual concerns: Advanced directives on file: Palliative services: Therapy and Exercise: Last PT Date: Last OT Date: Last ST Date: Exercises Regularly: ALLERGIES Allergen Reactions Lipitor [Atorvastat* Intolerance Muscle pain -- gone with stoppage Lisinopril Cough Pravachol [Pravasta* Intolerance Muscle pain -- also with Lipitor Ranitidine Intolerance nausea Current Outpatient Medications Medication Sig carbidopa-levodopa (SINEMET 25-100) 25-100 mg per tablet Take 1.5 tablets by mouth three times daily. Pramipexole 0.75 mg tablet Take 1 tablet by mouth daily at bedtime. insulin 50/50 lispro protamine-lispro units/mL (HUMALOG MIX 50-50 INSULN U-100) 100 unit/mL suspension 32 units at breakfast, 22 units at lunch and 33 units at dinner. metFORMIN ER (GLUMETZA) 500 mg 24 hr tablet Take 2 tablets by mouth twice daily. venlafaxine (EFFEXOR) 75 mg tablet Take 75 mg by mouth twice daily. calcium carbonate-vitamin D3 (OYSTER SHELL CALCIUM-VIT D3) 500 mg-5 mcg (200 unit) pwpk Take 1 tablet by mouth once daily. donepezil (ARICEPT) 5 mg tablet Take 5 mg by mouth once daily. rosuvastatin (CRESTOR) 20 mg tablet Take 20 mg by mouth once daily. icosapent ethyl (VASCEPA) 1 gram capsule Take 2 g by mouth twice daily with meals. mirabegron (MYRBETRIQ) 50 mg Tb24 Take 50 mg by mouth once daily. losartan (COZAAR) 25 mg tablet Take 1 tablet by mouth once daily. Lancets (MICROLET LANCET) lancets Test blood sugar(s) 1 times daily. Dx: 250.00 Insulin: No Cholecalciferol, Vitamin D3, 2,000 unit cap Take 2,000 Units by mouth once daily. blood sugar diagnostic (EASY TOUCH) test strip Use to check blood sugars twice a day Dx: 250.00 Insulin: No LORATADINE (CLARITIN ORAL) Take by mouth as needed. ASPIRIN 81 MG ORAL TAB Take one(1) tablet daily. Melatonin 5 mg cap Take 1 capsule by mouth daily at bedtime. No current facility-administered medications for this visit. Past Medical and Surgical History: has a past medical history of Aortic valve sclerosis, Atrial fibrillation ([facility]), CAD (coronary artery disease), CKD stage G3b/A1, GFR 30 - 44 and albumin creatinine ratio <30 mg/g, Constipation, Depression, DM type 2 (diabetes mellitus, type 2) ([facility]) (~2007), Essential hypertension, benign (~10 years), Lymphedema of both lower extremities, Mild cognitive impairment, Obesity, Onychomycosis, CONCHITA (obstructive sleep apnea), Other and unspecified hyperlipidemia, Overactive bladder, and Parkinson's disease ([facility]). has a past surgical history that includes implant mesh opn hernia rpr/debridement closure (03/02/1997); rpr nonunion/malunion radius&ulna w/o autograf (03/02/1978); remv cataract extracap,insert lens (Bilateral, 2017); and total knee replacement (Right). Social History Tobacco Use Smoking status: Never Smokeless tobacco: Never Substance Use Topics Alcohol use: Yes Comment: occasional Drug use: No Family History: family history includes Cancer in his father; Colon Cancer in an other family member; Heart disease in his mother; Hypertension in his father. Objective Vital Signs: Ht 182.9 cm (6') Wt 121.5 kg (267 lb 14.4 oz) SpO2 98% BMI 36.33 kg/m Orthostatic Vitals: Sitting: BP 128/76 Pulse 83 Standing: BP 126/74 Pulse 90 Weight: 121.5 kg (267 lb 14.4 oz) Height: 182.9 cm (6') No LMP for male patient. Body mass index is 36.33 kg/m . General Physical Examination: General Exam General Neurological Examination: Neurological Exam Mental Status Awake and alert. Oriented only to person and place. Orientation: doesn't now date of month but knows its . Recent and remote memory are intact. Speech: Hypophonic. Language is fluent with no aphasia. Cranial Nerves CN II-XII grossly intact, except as otherwise noted. Motor Normal muscle bulk throughout. Normal muscle tone. The following abnormal movements were seen: Strength is 5/5 throughout all four extremities. Global bradykinesia and right > left rigidity. No tremor at rest. . Sensory Light touch is normal in upper and lower extremities. Reflexes Right Left Brachioradialis 2+ 2+ Biceps 2+ 2+ Patellar 2+ 2+ Achilles 2+ 2+ Right Plantar: downgoing Left Plantar: downgoing Coordination Etxdon-ys-tcmr, rapid alternating movements and uvub-wp-hmta normal bilaterally without dysmetria. Gait Casual gait is normal including stance, stride, and arm swing. Walks with stiff right side and decreased arm swing . Movement Disorders Scales Performed: MDS-UPDRS Motor subscale condition of exam Medication Off/On/Naiive ON Time of UPDRS 1354 Time of Last Medication 0930 Last Medication Taken Sinemet 25/100, 1.5 DBS Right N/A DBS Left N/A MDS-UPDRS Motor subscale scores Speech 2-Mild. Loss of modulation, diction, or volume, with a few words unclear, but the overall sentences easy to follow. Facial Expression 2-Mild. In addition to decreased eye-blink frequency, Masked facies present in the lower face as well, namely fewer movements around the mouth, such as less spontaneous smiling, but lips not parted. Rigidity Neck 2-Mild. Rigidity detected without the activation maneuver, but full range of motion is easily achieved. Rigidity Right Upper Extremity 2-Mild. Rigidity detected without the activation maneuver, but full range of motion is easily achieved. Rigidity Left Upper Extremity 1-Slight. Rigidity only detected with activation maneuver. Rigidity Right Lower Extremity 2-Mild. Rigidity detected without the activation maneuver, but full range of motion is easily achieved. Rigidity Left Lower Extremity 2-Mild. Rigidity detected without the activation maneuver, but full range of motion is easily achieved. Finger Taps Right 2-Mild. a) 3 to 5 interruptions during tapping, b) mild slowing, c) the amplitude decrements midway in the 10-tap sequence. Finger Taps Left 2-Mild. a) 3 to 5 interruptions during tapping, b) mild slowing, c) the amplitude decrements midway in the 10-tap sequence. Hand Movements Right 3-Moderate. a) more than 5 interruptions during the movement or at least one longer arrest (freeze) in ongoing movement, b) moderate slowing, c) the amplitude decrements starting after the 1st [id number] sequence. Hand Movements Left 3-Moderate. a) more than 5 interruptions during the movement or at least one longer arrest (freeze) in ongoing movement, b) moderate slowing, c) the amplitude decrements starting after the 1st [id number] sequence. Arm Movements Right 2-Mild. a) 3 to 5 interruptions during the movements, b) mild slowing, c) the amplitude decrements midway in the sequence. Arm Movements Left 2-Mild. a) 3 to 5 interruptions during the movements, b) mild slowing, c) the amplitude decrements midway in the sequence. Toe Taps Right 2-Mild. a) 3 to 5 interruptions during the tapping movements, b) mild slowing, c) the amplitude decrements midway in the task. Toe Taps Left 2-Mild. a) 3 to 5 interruptions during the tapping movements, b) mild slowing, c) the amplitude decrements midway in the task. Leg Agility Right 2-Mild. a) 3 to 5 interruptions during the movements, b) mild slowness, c) the amplitude decrements midway in the task. Leg Agility Left 2-Mild. a) 3 to 5 interruptions during the movements, b) mild slowness, c) the amplitude decrements midway in the task. Arise From Chair 2-Mild. Pushes self up from arms of chair without difficulty. Gait 3-Moderate. Requires an assistance device for safe walking (walking stick, walker) but not a person. Gait Freezing 0-Normal. No freezing. Posture Stability 3-Moderate. Stands safely, but with absence of postural response, falls if not caught by examiner. Posture 3-Moderate. Stooped posture, scoliosis or leaning to one side that cannot be corrected volitionally to a normal posture by the patient. Body Bradykinesia 3-Moderate. Moderate global slowness and poverty of spontaneous movements. Postural Tremor Hand Right 0-Normal. No tremor. Postural Tremor Hand Left 0-Normal. No tremor. Kinetic Tremor Right 0-Normal. No tremor. Kinetic Tremor Left 0-Normal. No tremor. Rest Tremor Amplitude Right Upper Extremity 0-Normal. No tremor. Rest Tremor Amplitude Left Upper Extremity 0-Normal. No tremor. Rest Tremor Amplitude Right Lower Extremity 0-Normal. No tremor. Rest Tremor Amplitude Right Lower Extremity 0-Normal. No tremor. Rest Tremor Amplitude Lip/Jaw 0-Normal. No tremor. Rest Tremor Constancy 0-Normal. No tremor. MDS-UPDRS Motor subscale totals Left Total 14 Right Total 15 Midline Total 20 Tremor Total / 10 0 PIGD Total / 3 6 Overall Total 49 % Change Compared to Last Filed Total Pertinent Studies 10/23/2018 MRI L Spine FINDINGS: At L5-S1, there is mild bulging annulus. No thecal sac impingement is seen. Degenerative facet joint disease is seen bilaterally. There is no central canal or neural foraminal stenosis. At L4-L5, 3 mm protrusion of the posterior disc margin causes slight impingement of the left ventral thecal sac. Hypertrophic degenerative facet joint disease is seen bilaterally. Tiny amount of fluid is seen in each facet joint. There is no significant central canal, neural foraminal, or lateral recess stenosis. At L3-L4, 2 mm protrusion of the posterior disc margin is seen. Degenerative facet joint disease is seen bilaterally. Disc material extends into the right neural foramen and extraforaminal region. It appears to impinge the right L3 nerve root as well as the right superolateral recess. The left lateral recess and neural foramen are only slightly narrowed. There is mild central canal stenosis. At L2-L3, 3 mm protrusion of the posterior disc margin in the midline extends into the left neural foramen. Hypertrophic degenerative facet joint disease is seen bilaterally. There is left neural foraminal and lateral recess stenosis with mild central canal stenosis. At L1-L2, 1.5 mm protrusion of the posterior disc margin causes minimal impingement of the ventral thecal sac. The facet joints and neural foramina appear normal bilaterally. At T12-L1, 1.5 mm protrusion of the posterior disc margin impinges the ventral thecal sac. The facet joints and neural foramina appear normal bilaterally. The vertebral bodies are normal in size, shape, and signal and are in good alignment. The lordotic curve appears normal. The conus medullaris and cauda equina appear normal. No paraspinal abnormality is seen. 12/04/2017: MRI Brain FINDINGS: Overall, the ventricles, basal cisterns and sulci are enlarged with asymmetric enlargement of the lateral ventricles with respect to the size of the sulci. This is probably secondary to asymmetric atrophy greater centrally. No restricted diffusion pattern is seen to suggest recent infarct. Occasional tiny punctate white matter signal alterations involving both cerebral hemispheres. These are likely on the basis of chronic small vessel white matter ischemia. Orbital proptosis is noted bilaterally in fairly symmetric fashion. Globes appear intact. No post septal soft tissue mass is noted. The extraocular muscles do not appear abnormally enlarged or infiltrated. No obvious infiltration of post septal fat is seen. Mucosal hyperintensity is seen in the ethmoid air cells compatible with inflammatory changes. No air fluid levels are noted. Assessment and Plan: Assessment Mr. Abraham is a left-handed 72 year old year old male with The following are the current problems noted and addressed during this visit: Parkinson's disease (hcc) (primary encounter diagnosis) Restless legs syndrome (rls) Rbd (rem behavioral disorder) Plan 10/16/2022 Visit: Parkinson's disease - Conitnue Sinemet 25/100 1.5 tablets three times daily but change the schedule to a 5 hour interval. Start PT Restless Legs Syndrome - Continue Mirapex (pramipexole) at bedtime REM Sleep Behavior Disorder - Try Melatonin 5 mg at bedtime Memory - Increase Aricept to 10 mg. May get MoCA assessment at next visit. Constipation - Use Miralax daily only use the Ducolax if you have not had a bowel movement for several days Soft Speech - Start Speech Therapy Patient's perception of importance for healthcare provider to let them know of research trials for which they may be eligible? Somewhat important Interested in clinical research? Yes Updated Movement Disorders Medication Schedule: Medications 8AM 1PM 6PM Bedtime Sinemet 25/100 1.5 1.5 1.5 pramipexole 0.75 mg 1 Thank you for allowing me to be part of the clinical care of this patient! I look forward to continued participation in the patient s care with you. Please do not hesitate to call with any questions. Sincerely, Micheal Perez MD documented in this encounter [facility] 09-30-2022 Note HNO ID: [id number] Author: Carol Gutierrez MD Service: ? Author Type: Physician Type: Progress Notes Filed: 10/02/2022 10:35 AM Note Text: Chief Complaint Patient presents with: Establish Care HPI Deepa Abraham is a 72 year old male who presents here today for establish care. Previous PCP: Dr. Moreno in [place] with last OV in April. Accompanied today by his . Complaining of constipation with large stools which has been present for about 1 year. Advised to take dulcolax on a daily basis which he has been compliant with. No recurrent dizziness since our last OV for ER follow up. History of type II DM which was previously managed by Dr. Veras in [place] and was referred to P[facility] Ruggiero here in [place]. States that his last OV was on September 01. . Switched him from NPH and R to Humalog 50-50 as ordered. Checking sugars 5-6 times per day with [employer]. Glucose this morning was 104 fasting. Last low sugar was 1 week ago with reading of 60. Usually in the morning. Optho: Natalie Matamoros. Blood and urine studies already obtained and foot exam checked. Reports everything was good. BP well controlled on current regimen. History of overactive bladder. Treated with myrbetriq through urology and has been treated with botox in the past. Has appointment with Dr. Swanson's office next week for establish care.Admits to urinary urgency and incontinence which is stable. Denies dysuria or hematuria. On Effexor for depression symptoms. Working well on current dosage. Parkisons' symptoms improved with Sinemet. Tremors and movement improved. Has cane and walker at home, but does not use them consistently. Last fall was 3 weeks ago without head injury or LOC. Denies joint pain today. Has follow up with neurology Dr. Perez on 10/16. Last colonoscopy was 2013 and looks like he was told to repeat in 5 years. Agreeable to referral today. Refusing vaccinations today. Past medical history, appointments, medications, allergies reviewed. Previous Medical History PAST MEDICAL HISTORY Diagnosis Date CKD stage G3b/A1, GFR 30 - 44 and albumin creatinine ratio <30 mg/g Constipation Depression DM type 2 (diabetes mellitus, type 2) ([facility]) ~2007 Endocrinology-Piedad Ruggiero Essential hypertension, benign ~10 years Lymphedema of both lower extremities Mild cognitive impairment Obesity Onychomycosis CONCHITA (obstructive sleep apnea) refusing CPAP Other and unspecified hyperlipidemia Overactive bladder Dr. Swanson Parkinson's disease ([facility]) Dr. Sandoval Previous Surgical History PAST SURGICAL HISTORY Procedure Laterality Date IMPLANT MESH OPN HERNIA RPR/DEBRIDEMENT CLOSURE 1997 left RPR NONUNION/MALUNION RADIUSANDULNA W/O AUTOGRAF 1978 left and right Family History FAMILY HISTORY Problem Relation Age of Onset other (TX [Other]) Mother other (HTN [Other]) Father Colon Cancer Other none known Cancer Father Lung cancer (smoker). Patient Allergies ALLERGIES Allergen Reactions Lipitor [Atorvastat* Intolerance Muscle pain -- gone with stoppage Lisinopril Cough Pravachol [Pravasta* Intolerance Muscle pain -- also with Lipitor Ranitidine Intolerance nausea Current Medications Current Outpatient Medications on File Prior to Visit Medication Sig insulin lispro protamin/lispro (HUMALOG MIX 50-50 INSULN U-100 SUBCUTANEOUS) Inject 32 Units subcutaneously three times daily. 32 units at breakfast, 22 units at lunch and 33 units at dinner. venlafaxine (EFFEXOR) 75 mg tablet Take 75 mg by mouth twice daily. Pramipexole 0.75 mg tablet Take 0.75 mg by mouth once daily. calcium carbonate-vitamin D3 (OYSTER SHELL CALCIUM-VIT D3) 500 mg-5 mcg (200 unit) pwpk Take 1 tablet by mouth once daily. donepezil (ARICEPT) 5 mg tablet Take 5 mg by mouth once daily. rosuvastatin (CRESTOR) 20 mg tablet Take 20 mg by mouth once daily. carbidopa-levodopa (SINEMET 25-100) 25-100 mg per tablet Take 1 tablet by mouth three times daily. 25/100 mg take 1.5 tablets TID icosapent ethyl (VASCEPA) 1 gram capsule Take 2 g by mouth twice daily with meals. mirabegron (MYRBETRIQ) 50 mg Tb24 Take 50 mg by mouth once daily. clonazePAM (KLONOPIN) 1 mg tablet 1-2 tablets at bedtime for sleep metFORMIN ER (GLUMETZA) 500 mg 24 hr tablet Take 4 tablets with breakfast (Patient taking differently: Take 1,000 mg by mouth twice daily. Take 4 tablets with breakfast) lovastatin (MEVACOR) 10 mg tablet Take 1 tablet by mouth daily at bedtime. For cholesterol. losartan (COZAAR) 25 mg tablet Take 1 tablet by mouth once daily. Cholecalciferol, Vitamin D3, 2,000 unit cap Take 2,000 Units by mouth once daily. LORATADINE (CLARITIN ORAL) Take by mouth as needed. clindamycin (CLEOCIN T) 1 % external solution Apply 1 application to affected area twice daily. At onset of rash. ASPIRIN 81 MG ORAL TAB Take one(1) tablet daily. insulin regular human (NOVOLIN R REGULAR (more content not included)... [facility] 09-09-2022 History of Present illness Narrative Nurse Note: Review of Systems Constitutional: Negative for fatigue, fever and unexpected weight change. HENT: No difficulty swallowing No change in voice Respiratory: Negative for cough, shortness of breath and wheezing. Cardiovascular: Negative for chest pain, palpitations and leg swelling. Gastrointestinal: Negative for constipation, diarrhea, nausea and vomiting. Neurological: Negative for tremors, weakness and numbness. Psychiatric/Behavioral: Negative for sleep disturbance. The patient is not nervous/anxious. Nursing Assessment: Physical Exam Patient: Deepa Abraham Date: 09/09/2022 Subjective: Deepa Abraham presents today for a left 3rd nail that is lifting. Serena Abraham is under the care of a physician for the management of their diabetes. Most recent measured glucose reading Lab Results Component Value Date GLUCOSE 164 (H) 04/23/2022 mg/dl. Most recent HbA1c Lab Results Component Value Date HGBA1C 8.0 (H) 04/23/2022 . Allergies: Allergies Allergen Reactions Hydroxyzine Confusion Lipitor [Atorvastatin] Myalgia Intolerable muscle pain Per prior PCP, Dr. Abdias Tyler, records and CoQ10 failure Bactrim [Sulfamethoxazole-Trimethoprim] Hives Coq10 [Coenzyme Q10] Dreams, Abnormal Nightmares Lisinopril Cough Per prior PCP, Dr. Abdias Tyler, records Pravastatin Myalgia ( and VALLADARES ) Per prior PCP, Dr. Abdias Tyler, records Ranitidine Nausea Only Per prior PCP, Dr. Abdias Tyler, records Bacitracin Contact Dermatitis, Itchy Throat, Rash and Runny Nose Carvedilol Dyspepsia Levaquin [Levofloxacin] Fluoroquinolones has been added 2/2 documented diagnosis of Myasthenia Gravis. IF MG is not a confirmed by testing diagnosis, deletion of this allergy may be considered. Myasthenia Gravis is documented in patient chart by PCP but patient and state Neurology has not informed them that this is a confirmed diagnosis. Nsaids CAD with unstable angina Penicillins Rash Medications: Current Outpatient Medications: betamethasone valerate 0.1 % Cream, Apply 1 Application topically 2 times daily as needed., Disp: , Rfl: Blood Glucose Monitoring Suppl (Blood Glucose Monitor System) w/Device Kit, 1 Each by Unknown route As directed., Disp: 1 kit, Rfl: 0 Calcium Polycarbophil (FIBER-CAPS PO), Take by mouth 2 times daily. ( increased 12/26/20), Disp: , Rfl: calcium-vitamin D 500-200 MG-UNIT tablet, Take 1 tablet by mouth 2 times daily., Disp: 180 tablet, Rfl: 3 Carbidopa-levodopa 25-100 MG per tablet, Take 1.5 tablets by mouth 3 times daily., Disp: 135 tablet, Rfl: 11 carveDILOL 6.25 MG tablet, Take 1 tablet by mouth 2 times daily with meals., Disp: 60 tablet, Rfl: 0 Clotrimazole 1 % Cream, Apply 1 Application topically 2 times daily. Apply between toes to rash once or twice daily, Disp: 60 g, Rfl: 1 Continuous Blood Gluc Ship Purser (FreeStyle Rayna 2 [place] Systm) Device, 1 Each by Unknown route every 4 hours., Disp: 1 Each, Rfl: 0 Continuous Blood Gluc Sensor (FreeStyle Rayna 2 Sensor Systm) Misc, 1 Each by Unknown route every 14 days., Disp: 2 Each, Rfl: 11 DISABILITY PLACARD, Disability placard end date 05/30/2024, Disp: 1 Each, Rfl: 0 donepezil 5 MG tablet, Take 1 tablet by mouth daily with breakfast., Disp: 30 tablet, Rfl: 6 Fluconazole 150 MG tablet, Take 1 tablet by mouth once a week for 6 doses., Disp: 6 tablet, Rfl: 1 furOSEmide 20 MG tablet, Take 1 tablet by mouth daily. Okay to take an extra 20 mg daily for weight gain or swelling., Disp: 120 tablet, Rfl: 3 Glucagon, rDNA, (Glucagon Emergency) 1 MG Kit, To use as directed for severe hypoglycemia, Disp: 1 kit, Rfl: 11 GLUCOSE MONITOR LANCETS PRESCRIPTION, Test blood sugar 4 times per day. Is on insulin therapy., Disp: 120 Container, Rfl: 11 GLUCOSE TEST STRIPS PRESCRIPTION, Test blood sugar 4 times per day. Is on insulin therapy., Disp: 120 Container, Rfl: 11 Icosapent Ethyl (Vascepa) 1 g capsule, Take 2 capsules by mouth 2 times daily. (for high triglycerides), Disp: 360 capsule, Rfl: 3 insulin NPH (NovoLIN N) 100 UNIT/ML injection, 20 units in the morning and at 15 units bedtime, Disp: 1 vial, Rfl: 3 insulin regular (NOVOLIN R) 1 unit/0.01 ml vial, Inject 15 Units under the skin 3 times daily (take before meals)., Disp: 2 vial, Rfl: 2 Insulin Syringe-Needle U-100 (INSULIN SYRINGE .3CC/31GX5/16 ) 31G X 5/16 0.3 ML Misc, To be used with insulin 4 times a day. E11.42, Disp: 150 Each, Rfl: 4 loratadine 10 MG tablet, TAKE ONE TABLET BY MOUTH DAILY NEEDED, Disp: 90 tablet, Rfl: 3 Magnesium 250 MG tablet, Take 1 tablet by mouth daily., Disp: , Rfl: metFORMIN 500 MG tablet, Take 2 tablets by mouth 2 times daily with meals., Disp: 360 tablet, Rfl: 1 Mirabegron ER (Myrbetriq) 50 MG tablet, Take 1 tablet by mouth daily., Disp: 30 tablet, Rfl: 11 Misc. Devices Misc, Men's uninary undergarment. 4/ day. , size XL, Dx: R39.41, R39.15, R35.0, N32.81, Disp: 120 Each, Rfl: 11 nitroGLYCERIN 0.4 MG tablet SL, Place 1 tablet under tongue every 5 minutes as needed for Chest pain. max = 3 doses. If CP persists after 3rd dose, call 911, Disp: 25 tablet, Rfl: 3 polyethylene glycol 17 GM/SCOOP Powder powder, Take 17 g by mouth daily as needed for Constipation. ( altered 12/26/20), Disp: , Rfl: Pramipexole Dihydrochloride 0.75 MG tablet, Take 1 tablet by mouth at bedtime., Disp: 90 tablet, Rfl: 3 rosuvastatin 20 MG tablet, Take 1 tablet by mouth at bedtime. For high cholesterol, Disp: 90 tablet, Rfl: 3 Skin Protectants, Misc. (Eucerin) Cream cream, Apply to bilateral lower legs and feet daily, Disp: 240 g, Rfl: 1 venlafaxine 75 MG tablet, Take 1 tablet by mouth 2 times daily., Disp: 180 tablet, Rfl: 3 Vitamin D3 1000 units Tab, Take 1 tablet by mouth daily., Disp: , Rfl: Past Medical History: Diagnosis Date TIFF (acute kidney injury) 09/24/2019 DR RAMAN STATES EVERYTHING IS NOW NORMAL Allergic rhinitis Arthritis joints & legs At risk for sleep apnea 04/08/2019 [facility]ANG 08/07 ( snores loudly, BP med, BMI > 35, age > 50, Neck size > 16in, male) Atrial enlargement, left 01/26/2018 Mild on echocardiogram BPH (benign prostatic hyperplasia) CAD (Coronary Artery Disease) on CT scan 07/15/2019 Cardiac angina Cataract Depression Essential hypertension, benign H/O colonoscopy 08/24/2013 Hammer toe History of chicken pox 03/02/1958 History of measles 03/02/1958 History of mumps 03/02/1958 History of urinary urgency Hypercholesterolemia 03/02/1994 Hyperlipidemia Hyperlipoproteinemia 03/02/1994 LDL Hypersomnia Influenza vaccine refused 11/22/2015 Muscle weakness Obesity Orthopnea 01/07/2018 CONCHITA (obstructive sleep apnea) 06/07/[address] Evgeny Valdez NO significant sleep-related breathing disorder after sleep study 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 Avalos Type II diabetes mellitus, uncontrolled Vaccination refused by patient 11/22/2015 Zoster refused Vitamin D deficiency 03/02/2013 Past Surgical History: Procedure Laterality Date CYSTOURETHOSCOPY W/ INJECTION FOR CHEMODENERVATION BLADDER N/A 01/15/2021 Laterality: N/A; Surgeon: Terrance Moseley MD; [facility] ARTHROTOMY KNEE Right 05/22/2020 Laterality: Right; Surgeon: Adele Matthews MD; [facility] ARTHROPLASTY KNEE TOTAL Right 04/16/2020 Laterality: Right; Surgeon: Adele Matthews MD; [facility] OR SLITTING PENIS PREPUCE N/A 04/26/2019 Laterality: N/A; Surgeon: Terrance Moseley MD; [facility] PROSTATECTOMY TRANSURETHRAL ELECTROSURGICAL (TURP) N/A 04/26/2019 Laterality: N/A; Surgeon: Terrance Moseley MD; [facility] CYSTOURETHROSCOPY W/ URETERAL CATHETERIZATION Bilateral 04/26/2019 Laterality: Bilateral; Surgeon: Terrance Moseley MD; Location: [facility] HEART CATHETERIZATION 2019 Dr. Persaud EYE SURGERY Bilateral 01/2018 eyelids raised EXTRACTION EXTRACAPSULAR CATARACT W/ IMPLANT (ECCE IOL) Right 11/10/2016 Laterality: Right; Surgeon: Yimi Maki MD; [facility]: [facility] EXTRACTION EXTRACAPSULAR CATARACT W/ IMPLANT (ECCE IOL) Left 10/27/2016 Laterality: Left; Surgeon: Yimi Maki MD; [facility] COLONOSCOPY DIAGNOSTIC 08/24/2013 HERNIA REPAIR 1996 CIRCUMCISION N/A 03 Apr 2019 Social History Occupational History Employer: RETIRED Tobacco Use Smoking status: Never Smokeless tobacco: Never Vaping Use Vaping Use: Never used Substance and Sexual Activity Alcohol use: Yes Comment: infrequently Drug use: No Sexual activity: Not on file Nurse Note: Review of Systems Constitutional: Negative for fatigue, fever and unexpected weight change. HENT: No difficulty swallowing No change in voice Respiratory: Negative for cough, shortness of breath and wheezing. Cardiovascular: Negative for chest pain, palpitations and leg swelling. Gastrointestinal: Negative for constipation, diarrhea, nausea and vomiting. Neurological: Negative for tremors, weakness and numbness. Psychiatric/Behavioral: Negative for sleep disturbance. The patient is not nervous/anxious. Nursing Assessment: Physical Exam Vitals: 09/09/22 1449 BP: 170/90 Pulse: 80 Weight: 120.7 kg (266 lb) Height: 1.829 m (6') Objective: The patient is alert and oriented. The patient is not under distress. Vascular: Left dorsalis pedis 2/4 pulse, right dorsalis pedis 2/4 pulse, Left posterior tibial 2/4 pulse, Right posterior tibial 2/4 pulse. Capillary filling time is Brisk at the level of the digital humberto bilaterally. No hair growth on the distal legs, feet or toes bilateral. Mild edema in bilateral feet Dermatology: nail #3 on the left is: thickened >8mm and ridges, distal lysing, friable subungual debris, yellow discoloration, brittle. The nail bed, reveals a characteristic fungal/yeast/mold odor and consistency. There is no surrounding cellulitis, deep incurvation, or evidence of bacterial infection to the toes or foot. Neurology: Gross sensations intact, light sensations intact to lower extremity. Sharp/dull sensations and Protective sensations diminshed to bilateral feet. Musculokeltal: There are digital contractures noted. Muscle strength is 5/5 for all four lower extremity muscle groups. Assessment: Deepa was seen today for nail trim, nail problem, ulcer, nail trim and nail problem. Diagnoses and all orders for this visit: Dermatophytosis of nail Plan: An abbreviated history and lower extremity physical exam was performed today. Debridement of left 3rd nail Continue with antifungal treatment per dr. kelley He is living in [place] now- too far for him to drive Will find a development editor closer to home I did tellhim if he has a problem I am happy to see him Follow up prn documented in this encounter [facility] 08-29-2022 History of Present illness Narrative Review of Systems A complete review of systems are negative except those consistent with HPI No fevers, chills or sweats No cough, chest pain No dysphagia, odynophagia No abdominal pain, nausea, vomiting, diarrhea No dysuria, frequency, hematuria No headache, dizziness, focal neurologic complaints No ear pain No sinus pain No rash No weight loss No joint or muscular pain Recent travel history? no HPI Deepa Abraham 72 y.o. male presents today for Follow-up (Onychomycosis/ hx of cellulitis ) HPI Deepa Abraham 72 y.o. male presents today for Follow-up (Onychomycosis/ hx of cellulitis ) Patient patient with a history of Parkinson's, HTN, heart disease, HLD and foot fungal infection. He was referred to ID clinic on 05/21/21. History of right foot fracture in a boot. History of fungal nail infection treated by Dr. De Dios 04/2021 with lamisel per notes but patient/ don't recall ever receiving this. Also history of Right knee synovial tap 05/07/21 with no growth on cultures. He is allergic to sulfa and has a contraindication to FQs based on possible exacerbation of neurologic condition. Patient was referred to ID clinic for RLE cellulitis. He reports having cellulitis several times a year in right leg. Has history of Right TKA. History of foot fracture but no hardware in this area. Patient had initial infectious disease consult visit on 05/21/21. Follow-up visit 06/11/21, he believes he has had a reaction to penicillin and stopped this a few days ago due to rash on lower extremities. Patient continues to have itching which he uses hydrocortisone cream but discussed with him trying to limit this as it will then his skin. Patient denies any significant pain in knee. Complains that the brace he was given for his foot fracture is causing pain in his leg. No fevers chills or sweats. No urinary or abdominal complaints. He has f/up on 07/23, Patient feels his legs feel well. No infections or cellulitis reported. Patient did end up finding a good pair of compression stockings that he wears approximate from 9 AM until bedtime. This is a loud his legs to feel better and he is using his cane less often to ambulate. Still on antifungals for ongoing onychomycosis. Infectious disease clinic appointment 09/24, but he continues to have lower extremity swelling. Is using compression stockings but not continuously. Does note some open wounds on right lower extremity but denies any cellulitis. No fevers or chills. No recent antibiotic use. No dysuria. Patient did receive injection of steroids in left hand with improvement of the symptoms by orthopedics. Follow-up 12/03, patient states that he intermittently gets redness and purple discoloration of his legs. No recent antibiotic use. Patient did have dog on lab and when he jumped off scratches lower leg 2 days ago. No signs of infection. No fevers or chills. Patient and state they are unable to use lymphatic compressions or suit as advised by vascular surgeon. Patient with history of occupational and physical therapy sessions however he is still having difficulty caring for his legs and wounds leaving to do so. Follow-up 02/04, patient has abrasion on his right tibia that he states has been there for about a month and a half and slowly healing. Chronic venous changes but no cellulitis or need for infection treatment recently. Still with right great toe Onychomycosis of distal tip. Some infection between toes as well. Patient is being treated by urology for some issues with incontinence. No reported UTI symptoms. Patient also on treatment for Parkinson's. No fevers or chills noted. Discussed with patient vaccines today. Appt 05/07, no recent cellulitis. Dry skin noted. Still with some fungal toenail issues. No fevers. No UTI. Still with overactive bladder sxs. D/w vaccines. Appt 08/29, patient remains on Chlortrimazole and fluconazole for nail fungus. No recent episodes of infection and no cellulitis today. Patient complains of rhinorrhea and some increased salivation when he eats but no particular food. Denies any known allergies. Patient tolerating antifungals. Patient's left third toe has nail partially falling off and his is afraid to treatment. He has a small wound developing there as well. No cellulitis. Still with overactive bladder issues. Finding it difficult to get into appointments at [place] where they now live ROS Review of Systems A complete review of systems are negative except those consistent with HPI No fevers, chills or sweats No cough, chest pain No dysphagia, odynophagia No abdominal pain, nausea, vomiting, diarrhea No dysuria, frequency, hematuria No headache, dizziness, focal neurologic complaints No ear pain No sinus pain No rash No weight loss No joint or muscular pain Recent travel history? no HISTORY/ALLERGIES/MEDS Allergies Allergen Reactions Hydroxyzine Confusion Lipitor [Atorvastatin] Myalgia Intolerable muscle pain Per prior PCP, Dr. Abdias Tyler, records and CoQ10 failure Bactrim [Sulfamethoxazole-Trimethoprim] Hives Coq10 [Coenzyme Q10] Dreams, Abnormal Nightmares Lisinopril Cough Per prior PCP, Dr. Abdias Tyler, records Pravastatin Myalgia ( and VALLADARES ) Per prior PCP, Dr. Abdias Tyler, records Ranitidine Nausea Only Per prior PCP, Dr. Abdias Tyler, records Bacitracin Contact Dermatitis, Itchy Throat, Rash and Runny Nose Carvedilol Dyspepsia Levaquin [Levofloxacin] Fluoroquinolones has been added 2/2 documented diagnosis of Myasthenia Gravis. IF MG is not a confirmed by testing diagnosis, deletion of this allergy may be considered. Myasthenia Gravis is documented in patient chart by PCP but patient and state Neurology has not informed them that this is a confirmed diagnosis. Nsaids CAD with unstable angina Penicillins Rash Past Medical History: Diagnosis Date TIFF (acute kidney injury) 09/24/2019 DR RAMAN STATES EVERYTHING IS NOW NORMAL Allergic rhinitis Arthritis joints & legs At risk for sleep apnea 04/08/2019 [facility] 08/07 ( snores loudly, BP med, BMI > 35, age > 50, Neck size > 16in, male) Atrial enlargement, left 01/26/2018 Mild on echocardiogram BPH (benign prostatic hyperplasia) CAD (Coronary Artery Disease) on CT scan 07/15/2019 Cardiac angina Cataract Depression Essential hypertension, benign H/O colonoscopy 08/24/2013 Hammer toe History of chicken pox 03/02/1958 History of measles 03/02/1958 History of mumps 03/02/1958 History of urinary urgency Hypercholesterolemia 03/02/1994 Hyperlipidemia Hyperlipoproteinemia 03/02/1994 LDL Hypersomnia Influenza vaccine refused 11/22/2015 Muscle weakness Obesity Orthopnea 01/07/2018 CONCHITA (obstructive sleep apnea) 06/07/[address] Evgeny Valdez NO significant sleep-related breathing disorder after sleep study 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 Avalos Type II diabetes mellitus, uncontrolled Vaccination refused by patient 11/22/2015 Zoster refused Vitamin D deficiency 03/02/2013 Past Surgical History: Procedure Laterality Date CYSTOURETHOSCOPY W/ INJECTION FOR CHEMODENERVATION BLADDER N/A 01/15/2021 Laterality: N/A; Surgeon: Terrance Moseley MD; [facility] ARTHROTOMY KNEE Right 05/22/2020 Laterality: Right; Surgeon: Adele Matthews MD; Location: [facility] ARTHROPLASTY KNEE TOTAL Right 04/16/2020 Laterality: Right; Surgeon: Adele Matthews MD; Location: [facility] SLITTING PENIS PREPUCE N/A 04/26/2019 Laterality: N/A; Surgeon: Terrance Moseley MD; Location: [facility] PROSTATECTOMY TRANSURETHRAL ELECTROSURGICAL (TURP) N/A 04/26/2019 Laterality: N/A; Surgeon: Terrance Moseley MD; [facility] CYSTOURETHROSCOPY W/ URETERAL CATHETERIZATION Bilateral 04/26/2019 Laterality: Bilateral; Surgeon: Terrance Moseley MD; Location[facility] HEART CATHETERIZATION 2019 Dr. Persaud EYE SURGERY Bilateral 01/2018 eyelids raised EXTRACTION EXTRACAPSULAR CATARACT W/ IMPLANT (ECCE IOL) Right 11/10/2016 Laterality: Right; Surgeon: Yimi Maki MD; [facility]: [facility] EXTRACTION EXTRACAPSULAR CATARACT W/ IMPLANT (ECCE IOL) Left 10/27/2016 Laterality: Left; Surgeon: Yimi Maki MD; [facility]: [facility] COLONOSCOPY DIAGNOSTIC 08/24/2013 HERNIA REPAIR 1996 CIRCUMCISION N/A 03 Apr 2019 Social History Socioeconomic History Marital status: Spouse name: Filomena Merchant Number of children: 2 Years of education: Not on file Highest education level: Not on file Occupational History Employer: RETIRED Tobacco Use Smoking status: Never Smokeless tobacco: Never Vaping Use Vaping Use: Never used Substance and Sexual Activity Alcohol use: Yes Comment: infrequently Drug use: No Sexual activity: Not on file Other Topics Concern Not on file Social History Narrative Not on file Social Determinants of Health Financial Resource Strain: Not on file Food Insecurity: Not on file Transportation Needs: Not on file Physical Activity: Not on file Stress: Not on file Social Connections: Not on file Intimate Partner Violence: Not on file Housing Stability: Not on file Family History Problem Relation Age of Onset Hypertension Father Lipid Disorder Father high cholesterol Lung Cancer Father Diabetes Sister DM type 2 Current Outpatient Medications: betamethasone valerate 0.1 % Cream, Apply 1 Application topically 2 times daily as needed., Disp: , Rfl: Blood Glucose Monitoring Suppl (Blood Glucose Monitor System) w/Device Kit, 1 Each by Unknown route As directed., Disp: 1 kit, Rfl: 0 Calcium Polycarbophil (FIBER-CAPS PO), Take by mouth 2 times daily. ( increased 12/26/20), Disp: , Rfl: calcium-vitamin D 500-200 MG-UNIT tablet, Take 1 tablet by mouth 2 times daily., Disp: 180 tablet, Rfl: 3 Carbidopa-levodopa 25-100 MG per tablet, Take 1.5 tablets by mouth 3 times daily., Disp: 135 tablet, Rfl: 11 carveDILOL 6.25 MG tablet, Take 1 tablet by mouth 2 times daily with meals., Disp: 60 tablet, Rfl: 0 clotrimazole 1 % Cream, Apply 1 Application topically 2 times daily. Apply between toes to rash once or twice daily, Disp: 60 g, Rfl: 1 Continuous Blood Gluc Ship Purser (FreeStyle Rayna 2 [place] Systm) Device, 1 Each by Unknown route every 4 hours., Disp: 1 Each, Rfl: 0 Continuous Blood Gluc Sensor (FreeStyle Rayna 2 Sensor Systm) Misc, 1 Each by Unknown route every 14 days., Disp: 2 Each, Rfl: 11 DISABILITY PLACARD, Disability placard end date 05/30/2024, Disp: 1 Each, Rfl: 0 donepezil 5 MG tablet, Take 1 tablet by mouth daily with breakfast., Disp: 30 tablet, Rfl: 6 Fluconazole 150 MG tablet, Take 1 tablet by mouth once a week., Disp: , Rfl: furOSEmide 20 MG tablet, Take 1 tablet by mouth daily. Okay to take an extra 20 mg daily for weight gain or swelling., Disp: 120 tablet, Rfl: 3 Glucagon, rDNA, (Glucagon Emergency) 1 MG Kit, To use as directed for severe hypoglycemia, Disp: 1 kit, Rfl: 11 GLUCOSE MONITOR LANCETS PRESCRIPTION, Test blood sugar 4 times per day. Is on insulin therapy., Disp: 120 Container, Rfl: 11 GLUCOSE TEST STRIPS PRESCRIPTION, Test blood sugar 4 times per day. Is on insulin therapy., Disp: 120 Container, Rfl: 11 Icosapent Ethyl (Vascepa) 1 g capsule, Take 2 capsules by mouth 2 times daily. (for high triglycerides), Disp: 360 capsule, Rfl: 3 insulin NPH (NovoLIN N) 100 UNIT/ML injection, 20 units in the morning and at 15 units bedtime, Disp: 1 vial, Rfl: 3 insulin regular (NOVOLIN R) 1 unit/0.01 ml vial, Inject 15 Units under the skin 3 times daily (take before meals)., Disp: 2 vial, Rfl: 2 Insulin Syringe-Needle U-100 (INSULIN SYRINGE .3CC/31GX5/16 ) 31G X 5/16 0.3 ML Misc, To be used with insulin 4 times a day. E11.42, Disp: 150 Each, Rfl: 4 loratadine 10 MG tablet, TAKE ONE TABLET BY MOUTH DAILY NEEDED, Disp: 90 tablet, Rfl: 3 Magnesium 250 MG tablet, Take 1 tablet by mouth daily., Disp: , Rfl: metFORMIN 500 MG tablet, Take 2 tablets by mouth 2 times daily with meals., Disp: 360 tablet, Rfl: 1 Mirabegron ER (Myrbetriq) 50 MG tablet, Take 1 tablet by mouth daily., Disp: 30 tablet, Rfl: 11 Misc. Devices Misc, Men's uninary undergarment. 4/ day. , size XL, Dx: R39.41, R39.15, R35.0, N32.81, Disp: 120 Each, Rfl: 11 nitroGLYCERIN 0.4 MG tablet SL, Place 1 tablet under tongue every 5 minutes as needed for Chest pain. max = 3 doses. If CP persists after 3rd dose, call 911, Disp: 25 tablet, Rfl: 3 polyethylene glycol 17 GM/SCOOP Powder powder, Take 17 g by mouth daily as needed for Constipation. ( altered 12/26/20), Disp: , Rfl: Pramipexole Dihydrochloride 0.75 MG tablet, Take 1 tablet by mouth at bedtime., Disp: 90 tablet, Rfl: 3 rosuvastatin 20 MG tablet, Take 1 tablet by mouth at bedtime. For high cholesterol, Disp: 90 tablet, Rfl: 3 Skin Protectants, Misc. (Eucerin) Cream cream, Apply to bilateral lower legs and feet daily, Disp: 240 g, Rfl: 1 venlafaxine 75 MG tablet, Take 1 tablet by mouth 2 times daily., Disp: 180 tablet, Rfl: 3 Vitamin D3 1000 units Tab, Take 1 tablet by mouth daily., Disp: , Rfl: EXAM BP 150/68 (BP Location: Left arm, BP Position: Sitting) Pulse 84 Temp 96.7 F (35.9 C) (Temporal) Resp 18 Ht 1.829 m (6') Wt 120.9 kg (266 lb 9.6 oz) SpO2 96% BMI 36.16 kg/m Smoking Status Never Physical Exam Vitals and nursing note reviewed. Constitutional: General: He is not in acute distress. Appearance: He is not toxic-appearing. HENT: Head: Normocephalic and atraumatic. Mouth/Throat: Pharynx: Oropharynx is clear. No oropharyngeal exudate. Eyes: Extraocular Movements: Extraocular movements intact. Conjunctiva/sclera: Conjunctivae normal. Pupils: Pupils are equal, round, and reactive to light. Cardiovascular: Rate and Rhythm: Normal rate. Pulses: Normal pulses. Heart sounds: No murmur heard. Pulmonary: Effort: No respiratory distress. Breath sounds: Normal breath sounds. No rhonchi or rales. Abdominal: General: Bowel sounds are normal. There is no distension. Palpations: Abdomen is soft. There is no mass. Tenderness: There is no abdominal tenderness. There is no guarding. Genitourinary: Comments: No CVA or suprapubic tenderness Musculoskeletal: General: No swelling or tenderness. Normal range of motion. Cervical back: Normal range of motion. No rigidity. Right lower leg: Edema present. Left lower leg: Edema present. Comments: Right prosthetic knee with well-healed incision and no evidence of infection Skin: General: Skin is warm. Findings: No rash. Comments: Great toe onychomycosis with distal involvement only improvement left third toe with partial loss of nail which is coming off as well as wound without signs of infection Chronic vascular changes of lower extremity with mild +1 pitting edema with reactive erythema. No cellulitis noted. Neurological: Mental Status: He is alert and oriented to person, place, and time. Comments: Parkinsonian symptoms Psychiatric: Mood and Affect: Mood normal. Behavior: Behavior normal. Thought Content: Thought content normal. LABS CBC Lab Results Component Value Date WBC 7.9 04/23/2022 HGB 15.1 04/23/2022 HCT 44.5 04/23/2022 PLATELET 242 04/23/2022 MCV 81.6 04/23/2022 EDIF Lab Results Component Value Date RBCDISTRIBU 15.0 (H) 04/23/2022 EOSINOPHILS 3.1 10/14/2020 EOSINOPHILS 0.20 10/14/2020 BASOPHILS 0.4 10/14/2020 BASOPHILS 0.0 10/14/2020 LYMPHOCYTABS 0.90 (L) 10/14/2020 PLATELET 242 04/23/2022 MPV 7.2 (L) 04/23/2022 EDIF Lab Results Component Value Date RBCDISTRIBU 15.0 (H) 04/23/2022 EOSINOPHILS 3.1 10/14/2020 EOSINOPHILS 0.20 10/14/2020 BASOPHILS 0.4 10/14/2020 BASOPHILS 0.0 10/14/2020 LYMPHOCYTABS 0.90 (L) 10/14/2020 PLATELET 242 04/23/2022 MPV 7.2 (L) 04/23/2022 ESR Lab Results Component Value Date RBCDISTRIBU 15.0 (H) 04/23/2022 EOSINOPHILS 3.1 10/14/2020 EOSINOPHILS 0.20 10/14/2020 BASOPHILS 0.4 10/14/2020 BASOPHILS 0.0 10/14/2020 LYMPHOCYTABS 0.90 (L) 10/14/2020 PLATELET 242 04/23/2022 MPV 7.2 (L) 04/23/2022 Lab Results Component Value Date SODIUM 140 04/23/2022 POTASSIUM 4.4 04/23/2022 CHLORIDE 103 04/23/2022 CO2 27 04/23/2022 BUN 23 (H) 04/23/2022 CREATSERUM 0.93 04/23/2022 GLUCOSE 164 (H) 04/23/2022 Lab Results Component Value Date CRP 9.1 05/27/2021 Lab Results Component Value Date RESULTCULT NO GROWTH 21 DAYS 05/07/2021 . Lab Results Component Value Date GLUCOSE 164 (H) 04/23/2022 . Lab Results Component Value Date CALCIUM 9.6 04/23/2022 Lab Results Component Value Date ALBUMIN 4.7 04/23/2022 SIUM 05/27/2021 CHLORIDE 05/27/2021 CO2 03/ Lab Results Component Value Date BILITOTAL 0.6 04/23/2022 Lab Results Component Value Date ALT 11 04/23/2022 AST 18 04/23/2022 ALKPHOS 105 04/23/2022 BILITOTAL 0.6 04/23/2022 BILIDIRECT 0.2 10/14/2020 No orders to display IMAGING No results found. Diagnosis/Plan: There are no diagnoses linked to this encounter. Hx of RLE cellulitis -status post prior antibiotics on 05/21 given no cellulitis on exam on 05/21 visit -Given history of recurrent infection and ongoing risk factors of infection (venous insufficiency, fungal toenail infection) Was given prophylactic penicillin 500 mg po bid, the patient states he developed a papular rash of the lower extremities with itching due to that medication that resolved once he stopped the medication approximately 06/08; remains off of prophylactic antibiotics at this time -no evidence of infection at this time -Continue compression stockings; Per chart review Dr. Persaud regarding lymphedema compressions; However patient and state that they do not want to pursue this as it is very difficult to get on and off. Discussed with them trying to find other compression stockings that go up his entire lower leg to help control swelling that are not good fitting -Excellent skin care -Avoid trauma to the lower extremities including animal exposures which can lead to severe infection, recommend wearing long pants, d/w patient as he has dogs -No cellulitis on today's exam, No recent events -continue good skin care, eucerin recommended Onychomycosis and tinea pedis -Nail trimming -Keep feet dry -continue topical clotrimazole between toes as needed -status post fluconazole, will restart 05/07- -disease mainly in distal area of great toe -overall improving and we will continue treatment for the next 4-6 months -Podiatry referral given left third toe Right TKA -history of Synovial tap with negative cultures; 209 white cells and over 33,000 red cells with traumatic tap -CRP 9.1 and normal on 05/19 -No clear signs of PJI on today's exam Healthcare maintenance -status post Covid primary series in 1 booster early in 2021, discussed with him most recent vaccine to keep him up-to-date but he has deferred at this time. -history of pneumococcal conjugate and polysaccharide vaccine -History of tetanus shot in 2016 -History of prior hepatitis B vaccination - recommended high-dose influenza vaccine at fall Diabetes -Elevated A1c to 7.8, 7.6, 8.0 - recommend excellent to glucose control, states that glucose control has been good at monitoring ongoing Overactive bladder -Patient seeing urology but is no longer getting Botox injections, Myrbetriq but states still issues-F/up urology discussed with Pradip -UA 01/2022 negative -Needs f/up in urology - [place] [facility] -Patient sees neurology Rhinorrhea with eating -May be vasomotor rhinitis vs. Allergy -Trial of flonase Refills given. RTC in 3 months, sooner if any new infectious disease concerns. 20 minutes of care documented in this encounter [facility] 08-15-2022 Note HNO ID: [id number] Author: Carol Gutierrez MD Service: ? Author Type: Physician Type: Progress Notes Filed: 08/16/2022 10:57 AM Note Text: Chief Complaint Patient presents with: ER F/U HPI Deepa Abraham is a 72 year old male who presents here today for jnew limited ER Follow Up. Accompanied today by his Filomena Merchant. PCP Dr. Moreno in [place]. Patient evaluated at [facility] ED on 08/09 for c/o dizziness which started same day while driving associated with Noted glucose 300 prior to leaving his house. Workup in the ED pertinent for glucose of 245 without DKA. Troponins and D dimer negative. UA negative for UTI. EKG NSR. CXR unermarkable. Was able to ambulate and was Discharged home with recommendation to follow up with PCP. Since discharge, patient has not had any recurrent dizziness/lightheadedness, syncope, nausea, vomiting, diarrhea. Notes that he had hypoglycemia this morning around 3:30 with reading of 52. Feels cold and shaky when his sugars are low. Did not eat much dinner last night. Ate PB AND J and sugar came up to 220. Feels back to baseline now. Past medical history, appointments, medications, allergies reviewed. Previous Medical History PAST MEDICAL HISTORY Diagnosis Date CKD stage G3b/A1, GFR 30 - 44 and albumin creatinine ratio <30 mg/g Depression DM type 2 (diabetes mellitus, type 2) ([facility]) ~2007 Essential hypertension, benign ~10 years Obesity Other and unspecified hyperlipidemia Previous Surgical History PAST SURGICAL HISTORY Procedure Laterality Date IMPLANT MESH OPN HERNIA RPR/DEBRIDEMENT CLOSURE 1997 left RPR NONUNION/MALUNION RADIUSANDULNA W/O AUTOGRAF 1978 left and right Family History FAMILY HISTORY Problem Relation Age of Onset other ([place] [Other]) Mother other (HTN [Other]) Father Colon Cancer Other none known Cancer Father Lung cancer (smoker). Patient Allergies ALLERGIES Allergen Reactions Lipitor [Atorvastat* Intolerance Muscle pain -- gone with stoppage Lisinopril Cough Pravachol [Pravasta* Intolerance Muscle pain -- also with Lipitor Ranitidine Intolerance nausea Current Medications Current Outpatient Medications on File Prior to Visit Medication Sig clonazePAM (KLONOPIN) 1 mg tablet 1-2 tablets at bedtime for sleep metFORMIN ER (GLUMETZA) 500 mg 24 hr tablet Take 4 tablets with breakfast glipiZIDE XL (GLUCOTROL XL) 10 mg 24 hr tablet Take 2 tablets by mouth once daily. FLUoxetine (PROZAC) 20 mg capsule Take 3 capsules by mouth once daily. lovastatin (MEVACOR) 10 mg tablet Take 1 tablet by mouth daily at bedtime. For cholesterol. losartan (COZAAR) 25 mg tablet Take 1 tablet by mouth once daily. Lancets (MICROLET LANCET) lancets Test blood sugar(s) 1 times daily. Dx: 250.00 Insulin: No pioglitazone (ACTOS) 15 mg tablet Take 1 tablet by mouth once daily. Cholecalciferol, Vitamin D3, 2,000 unit cap Take 2,000 Units by mouth once daily. buPROPion XL (WELLBUTRIN XL) 150 mg 24 hr tablet Take 1 tablet by mouth once daily. blood sugar diagnostic (EASY TOUCH) test strip Use to check blood sugars twice a day Dx: 250.00 Insulin: No LORATADINE (CLARITIN ORAL) Take by mouth as needed. clindamycin (CLEOCIN T) 1 % external solution Apply 1 application to affected area twice daily. At onset of rash. ASPIRIN 81 MG ORAL TAB Take one(1) tablet daily. No current facility-administered medications on file prior to visit. Social History Social History Tobacco Use Smoking status: Never Smokeless tobacco: Never Substance Use Topics Alcohol use: Yes Comment: socially/glass of wine Drug use: No Review of Symptoms REVIEW OF SYSTEMS GENERAL: No weight loss, malaise or fevers RESPIRATORY: Negative for cough, hemoptysis, wheezing, COPD, dyspnea or shortness of breath CARDIOVASCULAR: Negative for chest pain, leg swelling, hypertension, CHF or palpitations GI: No nausea, vomiting, or diarrhea SKIN: Negative for lesions, rash, and itching NEURO: No history of headaches, syncope, paralysis, seizures. Admits to tremors with history of parkinsons. EXAM: BP 118/70 Pulse 78 Temp 36.7 ?C (98.1 ?F) Resp 16 Wt 120.7 kg (266 lb) SpO2 95% BMI 36.33 kg/m? General Appearance: Well appearing, alert, in no acute distress, well-hydrated, well nourished.. Skin: Skin color, texture, turgor normal, no suspicious rashes or lesions. Lungs: Lungs clear to auscultation. No wheezing, rhonchi, rales.. Heart: RRR without murmur, gallop, or rubs. No ectopy. Abdomen: Normal abdominal exam, Abdomen soft, non-tender. Bowel sounds normal. No masses, organomegaly. Extremities: No deformities, edema, skin discoloration, clubbing or cyanosis. Good capillary refill. . Health Maintenance List PNEUMOCOCCAL: 65+(1 - PCV) Never done ANNUAL PCP TEAM CHRONIC DISEASE VISIT Never done HEPATITIS C SCREENING Never done BP CONTROLLED (<130/80) Never done SHINGRIX VACCINE(1 of 2) Never done DT (more content not included)... [facility] 08-15-2022 History of Present illness Narrative Chief Complaint Patient presents with: ER F/U HPI Deepa Abraham is a 72 year old male who presents here today for jnew limited ER Follow Up. Accompanied today by his Filomena Merchant. PCP Dr. Moreno in [place]. Patient evaluated at [facility] ED on 08/09 for c/o dizziness which started same day while driving associated with Noted glucose 300 prior to leaving his house. Workup in the ED pertinent for glucose of 245 without DKA. Troponins and D dimer negative. UA negative for UTI. EKG NSR. CXR unermarkable. Was able to ambulate and was Discharged home with recommendation to follow up with PCP. Since discharge, patient has not had any recurrent dizziness/lightheadedness, syncope, nausea, vomiting, diarrhea. Notes that he had hypoglycemia this morning around 3:30 with reading of 52. Feels cold and shaky when his sugars are low. Did not eat much dinner last night. Ate PB & J and sugar came up to 220. Feels back to baseline now. Past medical history, appointments, medications, allergies reviewed. Previous Medical History PAST MEDICAL HISTORY Diagnosis Date CKD stage G3b/A1, GFR 30 - 44 and albumin creatinine ratio <30 mg/g Depression DM type 2 (diabetes mellitus, type 2) ([facility]) ~2007 Essential hypertension, benign ~10 years Obesity Other and unspecified hyperlipidemia Previous Surgical History PAST SURGICAL HISTORY Procedure Laterality Date IMPLANT MESH OPN HERNIA RPR/DEBRIDEMENT CLOSURE 1997 left RPR NONUNION/MALUNION RADIUS&ULNA W/O AUTOGRAF 1978 left and right Family History FAMILY HISTORY Problem Relation Age of Onset other ([place] [Other]) Mother other (HTN [Other]) Father Colon Cancer Other none known Cancer Father Lung cancer (smoker). Patient Allergies ALLERGIES Allergen Reactions Lipitor [Atorvastat* Intolerance Muscle pain -- gone with stoppage Lisinopril Cough Pravachol [Pravasta* Intolerance Muscle pain -- also with Lipitor Ranitidine Intolerance nausea Current Medications Current Outpatient Medications on File Prior to Visit Medication Sig clonazePAM (KLONOPIN) 1 mg tablet 1-2 tablets at bedtime for sleep metFORMIN ER (GLUMETZA) 500 mg 24 hr tablet Take 4 tablets with breakfast glipiZIDE XL (GLUCOTROL XL) 10 mg 24 hr tablet Take 2 tablets by mouth once daily. FLUoxetine (PROZAC) 20 mg capsule Take 3 capsules by mouth once daily. lovastatin (MEVACOR) 10 mg tablet Take 1 tablet by mouth daily at bedtime. For cholesterol. losartan (COZAAR) 25 mg tablet Take 1 tablet by mouth once daily. Lancets (MICROLET LANCET) lancets Test blood sugar(s) 1 times daily. Dx: 250.00 Insulin: No pioglitazone (ACTOS) 15 mg tablet Take 1 tablet by mouth once daily. Cholecalciferol, Vitamin D3, 2,000 unit cap Take 2,000 Units by mouth once daily. buPROPion XL (WELLBUTRIN XL) 150 mg 24 hr tablet Take 1 tablet by mouth once daily. blood sugar diagnostic (EASY TOUCH) test strip Use to check blood sugars twice a day Dx: 250.00 Insulin: No LORATADINE (CLARITIN ORAL) Take by mouth as needed. clindamycin (CLEOCIN T) 1 % external solution Apply 1 application to affected area twice daily. At onset of rash. ASPIRIN 81 MG ORAL TAB Take one(1) tablet daily. No current facility-administered medications on file prior to visit. Social History Social History Tobacco Use Smoking status: Never Smokeless tobacco: Never Substance Use Topics Alcohol use: Yes Comment: socially/glass of wine Drug use: No Review of Symptoms REVIEW OF SYSTEMS GENERAL: No weight loss, malaise or fevers RESPIRATORY: Negative for cough, hemoptysis, wheezing, COPD, dyspnea or shortness of breath CARDIOVASCULAR: Negative for chest pain, leg swelling, hypertension, CHF or palpitations GI: No nausea, vomiting, or diarrhea SKIN: Negative for lesions, rash, and itching NEURO: No history of headaches, syncope, paralysis, seizures. Admits to tremors with history of parkinsons. EXAM: BP 118/70 Pulse 78 Temp 36.7 C (98.1 F) Resp 16 Wt 120.7 kg (266 lb) SpO2 95% BMI 36.33 kg/m General Appearance: Well appearing, alert, in no acute distress, well-hydrated, well nourished.. Skin: Skin color, texture, turgor normal, no suspicious rashes or lesions. Lungs: Lungs clear to auscultation. No wheezing, rhonchi, rales.. Heart: RRR without murmur, gallop, or rubs. No ectopy. Abdomen: Normal abdominal exam, Abdomen soft, non-tender. Bowel sounds normal. No masses, organomegaly. Extremities: No deformities, edema, skin discoloration, clubbing or cyanosis. Good capillary refill. . Health Maintenance List PNEUMOCOCCAL: 65+(1 - PCV) Never done ANNUAL PCP TEAM CHRONIC DISEASE VISIT Never done HEPATITIS C SCREENING Never done BP CONTROLLED (<130/80) Never done SHINGRIX VACCINE(1 of 2) Never done DTAP,TDAP,TD(1 - Tdap) due on 01/14/2004 DIABETIC FOOT EXAM due on 12/09/2014 URINE ALBUMIN:CREATININE RATIO due on 04/20/2015 HBA1C due on 05/28/2015 DILATED RETINAL EXAM due on 10/21/2015 LDL CHOLESTEROL due on 11/17/2015 COLORECTAL CANCER SCREENING due on 08/25/2018 COVID-19 VACCINE(4 - Booster for Moderna series) due on 04/27/2021 ADVANCE DIRECTIVE DISCUSSION Never done INFLUENZA(Season Ended) due on 10/31/2022 ASSESSMENT/PLAN: 1. Dizziness - ICD9: 780.4, ICD10: R42 (primary diagnosis) Resolved. No changes to regimen. Patient has appointment with our office in September to establish care. Advised they seek refills from previous PCP and forward acute issues to PCP until we are able to get them in and established. 2. Hypoglycemia - ICD9: 251.2, ICD10: E16.2 Glucose recheck 160. Discussed importance of 3 meals per day with at least 30-60 grams of carbs. Will have patient f/u with PCP for DM needs until we can establish him here. Red flags for re-assessment reviewed with patient in detail. - GLUCOSE, BLOOD (POC) I spent a total of 30 minutes on the date of the service which included preparing to see the patient, [id number] patient care, completing clinical documentation, obtaining and/or reviewing separately obtained history, performing a medically appropriate examination, counseling and educating the patient/family/caregiver, ordering medications, tests, or procedures, and independently interpreting results (not separately reported). Carol Gutierrez MD documented in this encounter [facility] 06-19-2022 History of Present illness Narrative Nurse Note: Review of Systems Constitutional: Positive for fatigue. Negative for unexpected weight change. Eyes: Negative for visual disturbance. Respiratory: Negative for shortness of breath. Gastrointestinal: Positive for constipation. Negative for diarrhea, nausea and vomiting. Endocrine: Positive for polyuria. Negative for polydipsia. Neurological: Negative for numbness. Psychiatric/Behavioral: Negative for sleep disturbance. Nursing Assessment: Physical Exam Finish Molder? No Director Of Admissions? 5+ years History of Present Illness Insulin dependent Diabetes- He is here today for follow-up for diabetes. He believes he has had diabetes since approximately 2008. There is a family history of diabetes. He is currently taking metformin 1000 mg twice a day, Novolin N 20 units in the a.m. and 15-20 units in the p.m., Novolin R 15-18 units with meals. Glipizide was discontinued previously as ineffective. He previously had a good response to Bydureon, but the agent is not affordable. He states he feels the best when his blood sugars are between 150-200 mg/dL. Hemoglobin A1c = 8.0, up from 7.6%, down from 7.8%, down from 8.4%, up from 7.6%, down from 8.1%, up from 7.8%, down from 8.3%. Urine microalbumin creatinine ratio elevated at 73, GFR = 85. No anemia. He does have an elevated insulin antibody, previous C-peptide = 3.7 with concurrent fasting blood sugar 248 mg/dL. Last visit with ophthalmology was in April 2022, he no diabetes retinopathy noted. Now following with local podiatry, Dr. De Dios, he does have chronic peripheral neuropathy. Has met with a subscription agent in the past. He has a history of severe hypoglycemia event requiring assistance. Does have injectable glucagon available at home. Checks his blood sugar with rayna device. Overall scan times adequate though he does note when he leaves the house he does not take rayna reader with him. He has been testing blood sugar 4 times a day, and taking insulin 4 times a day. He has been doing this for the past 90 days. Hyperlipidemia: He is on rosuvastatin 20 mg daily and Vascepa 2 g twice a day. LDL = 48 mg/dL with triglycerides of = 79 mg/dL. This is managed by PCP. Hypertension: This is managed by his PCP and cardiology. He is currently taking carvedilol 6.25 mg twice a day, Lasix 20 mg twice a day. Unable to tolerate OLGA inhibitor due to cough. Not currently on ARB therapy. Blood pressure at target today. Review of Systems Nurse Note: Review of Systems Constitutional: Positive for fatigue. Negative for unexpected weight change. Eyes: Negative for visual disturbance. Respiratory: Negative for shortness of breath. Gastrointestinal: Positive for constipation. Negative for diarrhea, nausea and vomiting. Endocrine: Positive for polyuria. Negative for polydipsia. Neurological: Negative for numbness. Psychiatric/Behavioral: Negative for sleep disturbance. Nursing Assessment: Physical Exam Finish Molder? No Director Of Admissions? 5+ years Vitals: Blood pressure 132/70, pulse 84, height 1.829 m (6' 0.01 ), weight 119.7 kg (264 lb), SpO2 97 %. Physical Exam Vitals and nursing note reviewed. HENT: Head: Normocephalic. Cardiovascular: Rate and Rhythm: Normal rate and regular rhythm. Heart sounds: Normal heart sounds. Pulmonary: Effort: Pulmonary effort is normal. Breath sounds: Normal breath sounds. Skin: General: Skin is warm and dry. Neurological: Mental Status: He is alert and oriented to person, place, and time. Psychiatric: Mood and Affect: Mood normal. Behavior: Behavior normal. Neurological Exam Mental Status Alert. Oriented to person, place, and time. Assessment and Plan Insulin-dependent diabetes: We discussed his elevated A1c though he admits the diet has been poor. Diet is doing better and physical activity has increased. We again stressed the absolute importance and must keep his CGM reader with him at all times and can not leave it at home. CGM shows GMI of 7.7% in target range 50%, both are target given his history of severe hypoglycemia. We discussed his insulin timing issues which cause near hypoglycemia. Stressed again the importance of taking regular insulin 30 minutes prior to his meal. He is now moved to the [facility] and not hear anything about the referral we placed to transition care closer to home. New referral was placed today. He will call if he does not hear anything from the new endocrinology office. 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 Hyperlipidemia: Meeting LDL targets, continue statin therapy. This is managed by PCP. Hypertension: This is managed by his PCP. Blood pressure at target today. documented in this encounter [facility] 06-19-2022 Procedure note Associated Ord er(s): [place] CONTINUOUS GLUCOSE MONITORING ANALYSIS I&R CGM data demonstrates time in target range 50%, high 32%, very high 18%, low/very low 0%. GMI = 7.7%. CGM data trends demonstrate variable blood sugar readings. There is some near hypoglycemia noted where patient states he would take his regular insulin either without eating or would take up to 1 hour after eating. We again stressed the importance of insulin timing as well as meeting to keep his CGM reader with him at all times. [facility] 06-19-2022 Procedure note Associated Ord er(s): [place] CONTINUOUS GLUCOSE MONITORING ANALYSIS I&R CGM data demonstrates time in target range 50%, high 32%, very high 18%, low/very low 0%. GMI = 7.7%. CGM data trends demonstrate variable blood sugar readings. There is some near hypoglycemia noted where patient states he would take his regular insulin either without eating or would take up to 1 hour after eating. We again stressed the importance of insulin timing as well as meeting to keep his CGM reader with him at all times. documented in this encounter [facility] 05-23-2022 History of Present illness Narrative [facility] NOTE Chief Complaint Patient presents with Follow-up [facility] Parkinson's disease History of Present Illness: Deepa Abraham is a pleasant 71 y.o. male who presents in follow up for Parkinson disease and RLS. He is taking carb/levo 25/100, 1.5 tab tid and pramipexole 0.75 mg at bedtime for RLS. He sometimes forgets to take the midday dose. He sometimes forgets to take his midday dose of carbidopa/levodopa. He has noticed problems with balance, especially when bending down. He has not had any major falls. He is experiencing short-term memory problems. He forgets recent conversations that he has with his . Past Medical History: Diagnosis Date TIFF (acute kidney injury) 09/24/2019 DR RAMAN STATES EVERYTHING IS NOW NORMAL Allergic rhinitis Arthritis joints & legs At risk for sleep apnea 04/08/2019 STOPBANG 08/07 ( snores loudly, BP med, BMI > 35, age > 50, Neck size > 16in, male) Atrial enlargement, left 01/26/2018 Mild on echocardiogram BPH (benign prostatic hyperplasia) CAD (Coronary Artery Disease) on CT scan 07/15/2019 Cardiac angina Cataract Depression Essential hypertension, benign H/O colonoscopy 08/24/2013 Hammer toe History of chicken pox 03/02/1958 History of measles 03/02/1958 History of mumps 03/02/1958 History of urinary urgency Hypercholesterolemia 03/02/1994 Hyperlipidemia Hyperlipoproteinemia 03/02/1994 LDL Hypersomnia Influenza vaccine refused 11/22/2015 Muscle weakness Obesity Orthopnea 01/07/2018 CONCHITA (obstructive sleep apnea) 06/07/[address] Evgeny Valdez NO significant sleep-related breathing disorder after sleep study 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 Avalos Type II diabetes mellitus, uncontrolled Vaccination refused by patient 11/22/2015 Zoster refused Vitamin D deficiency 03/02/2013 Past Surgical History: Procedure Laterality Date CYSTOURETHOSCOPY W/ INJECTION FOR CHEMODENERVATION BLADDER N/A 01/15/2021 Laterality: N/A; Surgeon: Terrance Moseley MD; [facility] ARTHROTOMY KNEE Right 05/22/2020 Laterality: Right; Surgeon: Adele Matthews MD; Location: [facility] ARTHROPLASTY KNEE TOTAL Right 04/16/2020 Laterality: Right; Surgeon: Adele Matthews MD; Location: [facility] OR SLITTING PENIS PREPUCE N/A 04/26/2019 Laterality: N/A; Surgeon: Terrance Moseley MD; Location: [facility] PROSTATECTOMY TRANSURETHRAL ELECTROSURGICAL (TURP) N/A 04/26/2019 Laterality: N/A; Surgeon: Terrance Moseley MD; Location: [facility] CYSTOURETHROSCOPY W/ URETERAL CATHETERIZATION Bilateral 04/26/2019 Laterality: Bilateral; Surgeon: Terrance Moseley MD; Location: [facility] HEART CATHETERIZATION 2019 Dr. Persaud EYE SURGERY Bilateral 01/2018 eyelids raised EXTRACTION EXTRACAPSULAR CATARACT W/ IMPLANT (ECCE IOL) Right 11/10/2016 Laterality: Right; Surgeon: Yimi Maki MD; Location: [facility] EXTRACTION EXTRACAPSULAR CATARACT W/ IMPLANT (ECCE IOL) Left 10/27/2016 Laterality: Left; Surgeon: Yimi Maki MD; Location: [facility] OR COLONOSCOPY DIAGNOSTIC 08/24/2013 HERNIA REPAIR 1996 CIRCUMCISION N/A 03 Apr 2019 Family History Problem Relation Age of Onset Hypertension Father Lipid Disorder Father high cholesterol Lung Cancer Father Diabetes Sister DM type 2 Social History Tobacco Use Smoking status: Never Smokeless tobacco: Never Vaping Use Vaping Use: Never used Substance Use Topics Alcohol use: Yes Comment: infrequently Drug use: No Current Outpatient Medications Medication Sig betamethasone valerate 0.1 % Cream Apply 1 Application topically 2 times daily as needed. Blood Glucose Monitoring Suppl (Blood Glucose Monitor System) w/Device Kit 1 Each by Unknown route As directed. Calcium Polycarbophil (FIBER-CAPS PO) Take by mouth 2 times daily. ( increased 12/26/20) calcium-vitamin D 500-200 MG-UNIT tablet Take 1 tablet by mouth 2 times daily. Carbidopa-levodopa 25-100 MG per tablet Take 1.5 tablets by mouth 3 times daily. carveDILOL 6.25 MG tablet Take 1 tablet by mouth 2 times daily with meals. clotrimazole 1 % Cream Apply 1 Application topically 2 times daily. Apply between toes to rash once or twice daily Continuous Blood Gluc Ship Purser (FreeStyle Rayna 2 [place] Systm) Device 1 Each by Unknown route every 4 hours. Continuous Blood Gluc Sensor (FreeStyle Rayna 2 Sensor Systm) Misc 1 Each by Unknown route every 14 days. DISABILITY PLACARD Disability placard end date 05/30/2024 furOSEmide 20 MG tablet Take 1 tablet by mouth daily. Okay to take an extra 20 mg daily for weight gain or swelling. Glucagon, rDNA, (Glucagon Emergency) 1 MG Kit To use as directed for severe hypoglycemia GLUCOSE MONITOR LANCETS PRESCRIPTION Test blood sugar 4 times per day. Is on insulin therapy. GLUCOSE TEST STRIPS PRESCRIPTION Test blood sugar 4 times per day. Is on insulin therapy. Icosapent Ethyl (Vascepa) 1 g capsule Take 2 capsules by mouth 2 times daily. (for high triglycerides) insulin NPH (NovoLIN N) 100 UNIT/ML injection 20 units in the morning and at 15 units bedtime insulin regular (NOVOLIN R) 1 unit/0.01 ml vial Inject 15 Units under the skin 3 times daily (take before meals). Insulin Syringe-Needle U-100 (INSULIN SYRINGE .3CC/31GX5/16 ) 31G X 5/16 0.3 ML Misc To be used with insulin 4 times a day. E11.42 loratadine 10 MG tablet TAKE ONE TABLET BY MOUTH DAILY NEEDED Magnesium 250 MG tablet Take 1 tablet by mouth daily. metFORMIN 500 MG tablet Take 2 tablets by mouth 2 times daily with meals. Mirabegron ER (Myrbetriq) 50 MG tablet Take 1 tablet by mouth daily. Misc. Devices Mis Men's uninary undergarment. 4/ day. , size XL, Dx: R39.41, R39.15, R35.0, N32.81 nitroGLYCERIN 0.[address] 1 tablet under tongue every 5 minutes as needed for Chest pain. max = 3 doses. If CP persists after 3rd dose, call 911 polyethylene glycol 17 GM/SCOOP Powder powder Take 17 g by mouth daily as needed for Constipation. ( altered 12/26/20) Pramipexole Dihydrochloride 0.75 MG tablet Take 1 tablet by mouth at bedtime. rosuvastatin 20 MG tablet Take 1 tablet by mouth at bedtime. For high cholesterol Skin Protectants, [facility]. (Eucerin) Cream cream Apply to bilateral lower legs and feet daily venlafaxine 75 MG tablet Take 1 tablet by mouth 2 times daily. Vitamin D3 1000 units Tab Take 1 tablet by mouth daily. donepezil 5 MG tablet Take 1 tablet by mouth daily with breakfast. Allergies Allergen Reactions Hydroxyzine Confusion Lipitor [Atorvastatin] Myalgia Intolerable muscle pain Per prior PCP, Dr. Abdias Tyler, records and CoQ10 failure Bactrim [Sulfamethoxazole-Trimethoprim] Hives Coq10 [Coenzyme Q10] Dreams, Abnormal Nightmares Lisinopril Cough Per prior PCP, Dr. Abdias Tyler, records Pravastatin Myalgia ( and VALLADARES ) Per prior PCP, Dr. Abdias Tyler, records Ranitidine Nausea Only Per prior PCP, Dr. Abdias Tyler, records Bacitracin Contact Dermatitis, Itchy Throat, Rash and Runny Nose Carvedilol Dyspepsia Levaquin [Levofloxacin] Fluoroquinolones has been added 2/2 documented diagnosis of Myasthenia Gravis. IF MG is not a confirmed by testing diagnosis, deletion of this allergy may be considered. Myasthenia Gravis is documented in patient chart by PCP but patient and state Neurology has not informed them that this is a confirmed diagnosis. Nsaids CAD with unstable angina Penicillins Rash Physical Exam: BP 145/81 (BP Location: Left arm, BP Position: Sitting) Pulse 92 Ht 1.829 m (6') Wt 121.6 kg (268 lb) SpO2 98% BMI 36.35 kg/m Smoking Status Never Awake and alert. He has a masked face with reduced blinking. Voice is soft. EOM are full in all directions. Pursuit is choppy to the right, smooth to the left. Saccades are hypometric. There are no square wave jerks. Strength is normal in the upper and lower extremities. Finger tapping, rapid alternating movements, toe tapping and heel striking are bradykinetic, slightly worse on the right. Tone is rigid on the right side. There is no arm swing. Assessment and Plan: Deepa Abraham is a pleasant 71 y.o. male who presents in follow up for Parkinson disease. His motor symptoms have been stable since his last visit. He is experiencing memory difficulty. We agreed to try donepezil 5 mg daily. He lives in [place] and is having trouble making the drive over to our office. I suggested he look in to seeing Navarro Skinner, a neurologist practicing in [place]. Deepa was seen today for follow-up. Diagnoses and all orders for this visit: Mild cognitive impairment - donepezil 5 MG tablet; Take 1 tablet by mouth daily with breakfast. Parkinsonism, unspecified Parkinsonism type - Carbidopa-levodopa 25-100 MG per tablet; Take 1.5 tablets by mouth 3 times daily. Neuropathic pain - Pramipexole Dihydrochloride 0.75 MG tablet; Take 1 tablet by mouth at bedtime. Other chronic pain - Pramipexole Dihydrochloride 0.75 MG tablet; Take 1 tablet by mouth at bedtime. Bella Coleman MD 05/23/2022 documented in this encounter [facility] 05-23-2022 Instructions Bella Coleman MD - 05/23/2022 1:[address] Navarro Skinner Neurologist in [address], [address] [place] [address] PHONE NUMBER: documented in this encounter [facility] [employer] 05-20-2022 History of Present illness Narrative ((((Portions of this note utilized [employer] dictation software, please excuse any typographical or grammatical errors.)))) Chief Complaint: Deepa Abraham is a 71 y.o. male who comes in with the following complaint(s): Chief Complaint Patient presents with Follow-up Constipation, osteopenia TIME IN : 8:28 AM TIME OUT: 0841--13 TIME IN : 10:31 AM TIME OUT: 1035--06/16 TIME IN : 1:57 PM TIME OUT:14:11 -- TIME IN : 4:37 PM TIME OUT: HPI: Constipation, chronic-idiopathic. - This is a chronic condition for the patient starting years ago. INTERVAL NOTE: 1. At our 05/27/2021 visit, having slight improvement, having only a couple of days per week with larger caliber stools, no changes were made to his regimen. 2. Having BM's every 3 Days. He stopped taking the once a day fiber supplementbut taken in the morning, as he was having a significant urge for bowel movement in the afternoon, frequently when on the road. Constipation treatment fiber supplement 1 pill b.i.d. (increased 12/26/2020) polyethylene glycol as needed. Osteopenia This is a chronic mild condition diagnosed around 11/25/2018 when he he had had a possible pathologic fracture. Dr. Matthews ordered a bone density assessment diagnosing osteopenia. 05/27/2021 FRAX score 8.3%-major osteoporotic, 1.6%-hip INTERVAL NOTE: 1. At our 05/19/2021 visit, bone density recheck was ordered. 2. Encouraged to get all the weight-bearing exercise that he can get in his physical limitations. 3. They were not inclined to begin treatment at that time. 11/25/2018 bone density/DEXA scan Lumbar spine at 1.244 g/cm T score = 0.2 Left femoral neck at 0.917 g/cm T score = -1.2 Left total hip at 1.076 g/cm T score = -0.2 06/14/2021 bone density: Lumbar spine at 1.257 g/cm2, T-score = 0.3 Left femoral neck at 0.933, T-score = -1.1 Left total hip at 1.021, T-score = -0.6 IMPRESSION: 1. Bone mineral density by WHO criteria: Osteopenia. Fracture risk increased. 2. When compared with the most recent study 11/25/2018, there has been a 1.0% increase in bone mineral density of the lumbar spine, and a 5.1% decrease in bone mineral density at the left hip. The changes in the left hip are considered significant based on a 95% confidence interval. 05/20/2022 FRAX score : 4.6% chance of major osteoporotic , 0.9% chance of hip fracture. Childhood illnesses For documentation sake, he was going to try to look into his prior history to see if he had indeed had measles and or mumps and/or chickenpox when he was 8 years of age. Depression, recurrent-moderate - This patient has had depression since around 2011. INTERVAL NOTE: 1. At our 01/21/2022 visit, both he and his were in agreement that overall his depression was pretty much okay , and thus no changes were made. 2. Since then??? psychiatric medications: Venlafaxine 75 mg, 1 p.o. b.i.d. No ideations. Past History Past medical, surgical, family, and social histories have been reviewed and updated with the patient today and are located elsewhere in the medical record. ROS: Review of Systems Constitutional: Negative for fever and unexpected weight change. HENT: Negative for facial swelling and sore throat. Eyes: Negative for visual disturbance. Respiratory: Negative for cough and shortness of breath. Cardiovascular: Negative for chest pain. Gastrointestinal: Negative for abdominal pain, blood in stool and vomiting. Genitourinary: Negative for dysuria and hematuria. Skin: Negative for rash. Neurological: Negative for seizures and syncope. Hematological: Does not bruise/bleed easily. Psychiatric/Behavioral: Negative for suicidal ideas. OBJECTIVE: Vitals: 05/20/22 1347 BP: 132/68 Pulse: 96 Resp: 16 Temp: 97.5 degrees F (36.4 degrees C) TempSrc: Skin SpO2: 97% Weight: 120.2 kg (265 lb) Height: 1.829 m (6' 0.01 ) BMI Readings from Last 1 Encounters: 05/20/22 35.93 kg/m Wt Readings from Last 3 Encounters: 05/20/22 120.2 kg (265 lb) 05/07/22 120.3 kg (265 lb 4.8 oz) 02/04/22 119.5 kg (263 lb 6.4 oz) Physical Exam Vitals and nursing note reviewed. Constitutional: Appearance: He is well-developed. He is obese. Comments: In NAD, wearing a mask . Here with his spouse Cardiovascular: Rate and Rhythm: Normal rate and regular rhythm. Pulmonary: Effort: Pulmonary effort is normal. Breath sounds: Normal breath sounds. Neurological: Mental Status: He is alert. ASSESSMENT / PLAN ICD-10-CM 1. Constipation, chronic-idiopathic K59.04 2. Osteopenia of neck of left femur M85.852 3. Depression, recurrent-moderate F33.1 4. History of mumps Z86.19 5. History of measles Z86.19 6. History of chickenpox Z86.19 7. Premature P07.30 Problem List Items Addressed This Visit Constipation, chronic-idiopathic - Primary (Chronic) Depression, recurrent-moderate (Chronic) Osteopenia (Chronic) History of measles History of mumps Other Visit Diagnoses History of chickenpox Premature Regarding your constipation, you're currently having bowel movements on average every three days. That is much less often than before when you're having mostly daily bowel movements at most a couple days. Go back to using the fiber supplement as before, but this time only one pill, once a day, and take that pill at night. That way hopefully he'll be going to the bathroom in the morning. He needs to be doing that for a while two, to get your body use to it so that you are not having as large of a reaction. Your risk of getting a fractures actually gone down. 05/20/2022 FRAX score : 4.6% chance of major osteoporotic , 0.9% chance of hip fracture. I would not treat this but reassess it in a few years. Given your history of chickenpox I strongly recommend that you get the two-step Shingrix vaccination series to help prevent shingles. Patient was advised to call with any questions or concerns. If symptoms worsen patient was advised to follow up in our office or the Emergency Dept. Benefits, Risks, Contraindications, and Complications of recommended treatments were explained the patient understands and agrees to proceed with plan. Return in about 2 months (around 07/20/2022) for Constipation, depression, insomnia. Mee Moreno MD 05/20/2022 Review of Systems Constitutional: Negative for fever and unexpected weight change. HENT: Negative for facial swelling and sore throat. Eyes: Negative for visual disturbance. Respiratory: Negative for cough and shortness of breath. Cardiovascular: Negative for chest pain. Gastrointestinal: Negative for abdominal pain, blood in stool and vomiting. Genitourinary: Negative for dysuria and hematuria. Skin: Negative for rash. Neurological: Negative for seizures and syncope. Hematological: Does not bruise/bleed easily. Psychiatric/Behavioral: Negative for suicidal ideas. documented in this encounter [facility] 05-20-2022 Instructions Mee Moreno MD - 05/20/2022 1:30 PM EDT Regarding your constipation, you're currently having bowel movements on average every three days. That is much less often than before when you're having mostly daily bowel movements at most a couple days. Go back to using the fiber supplement as before, but this time only one pill, once a day, and take that pill at night. That way hopefully he'll be going to the bathroom in the morning. He needs to be doing that for a while two, to get your body use to it so that you are not having as large of a reaction. Your risk of getting a fractures actually gone down. 05/20/2022 FRAX score : 4.6% chance of major osteoporotic , 0.9% chance of hip fracture. I would not treat this but reassess it in a few years. Given your history of chickenpox I strongly recommend that you get the two-step Shingrix vaccination series to help prevent shingles. documented in this encounter [facility] 05-07-2022 History of Present illness Narrative Review of Systems A complete review of systems are negative except those consistent with HPI No fevers, chills or sweats No cough, chest pain No dysphagia, odynophagia No abdominal pain, nausea, vomiting, diarrhea No dysuria, frequency, hematuria No headache, dizziness, focal neurologic complaints No ear pain No sinus pain No rash No weight loss No joint or muscular pain Recent travel history? no HPI Deepa Abraham 71 y.o. male presents today for Follow-up (Onychomycosis/ hx of cellulitis ) HPI Deepa Abraham 71 y.o. male presents today for Follow-up (Onychomycosis/ hx of cellulitis ) HPI Deepa Abraham 71 y.o. male presents today for Follow-up (Onychomycosis/ hx of cellulitis ) Patient patient with a history of Parkinson's, HTN, heart disease, HLD and foot fungal infection. He was referred to ID clinic on 05/21/21. History of right foot fracture in a boot. History of fungal nail infection treated by Dr. De Dios 04/2021 with lamisel per notes but patient/ don't recall ever receiving this. Also history of Right knee synovial tap 05/07/21 with no growth on cultures. He is allergic to sulfa and has a contraindication to FQs based on possible exacerbation of neurologic condition. Patient was referred to ID clinic for RLE cellulitis. He reports having cellulitis several times a year in right leg. Has history of Right TKA. History of foot fracture but no hardware in this area. Patient had initial infectious disease consult visit on 05/21/21. Follow-up visit 06/11/21, he believes he has had a reaction to penicillin and stopped this a few days ago due to rash on lower extremities. Patient continues to have itching which he uses hydrocortisone cream but discussed with him trying to limit this as it will then his skin. Patient denies any significant pain in knee. Complains that the brace he was given for his foot fracture is causing pain in his leg. No fevers chills or sweats. No urinary or abdominal complaints. He has f/up on 07/23, Patient feels his legs feel well. No infections or cellulitis reported. Patient did end up finding a good pair of compression stockings that he wears approximate from 9 AM until bedtime. This is a loud his legs to feel better and he is using his cane less often to ambulate. Still on antifungals for ongoing onychomycosis. Infectious disease clinic appointment 09/24, but he continues to have lower extremity swelling. Is using compression stockings but not continuously. Does note some open wounds on right lower extremity but denies any cellulitis. No fevers or chills. No recent antibiotic use. No dysuria. Patient did receive injection of steroids in left hand with improvement of the symptoms by orthopedics. Follow-up 12/03, patient states that he intermittently gets redness and purple discoloration of his legs. No recent antibiotic use. Patient did have dog on lab and when he jumped off scratches lower leg 2 days ago. No signs of infection. No fevers or chills. Patient and state they are unable to use lymphatic compressions or suit as advised by vascular surgeon. Patient with history of occupational and physical therapy sessions however he is still having difficulty caring for his legs and wounds leaving to do so. Follow-up 02/04, patient has abrasion on his right tibia that he states has been there for about a month and a half and slowly healing. Chronic venous changes but no cellulitis or need for infection treatment recently. Still with right great toe Onychomycosis of distal tip. Some infection between toes as well. Patient is being treated by urology for some issues with incontinence. No reported UTI symptoms. Patient also on treatment for Parkinson's. No fevers or chills noted. Discussed with patient vaccines today. Appt 05/07, no recent cellulitis. Dry skin noted. Still with some fungal toenail issues. No fevers. No UTI. Still with overactive bladder sxs. D/w vaccines. ROS Review of Systems A complete review of systems are negative except those consistent with HPI No fevers, chills or sweats No cough, chest pain No dysphagia, odynophagia No abdominal pain, nausea, vomiting, diarrhea No dysuria, frequency, hematuria No headache, dizziness, focal neurologic complaints No ear pain No sinus pain No rash No weight loss No joint or muscular pain Recent travel history? no HISTORY/ALLERGIES/MEDS Allergies Allergen Reactions Hydroxyzine Confusion Lipitor [Atorvastatin] Myalgia Intolerable muscle pain Per prior PCP, Dr. Abdias Tyler, records and CoQ10 failure Bactrim [Sulfamethoxazole-Trimethoprim] Hives Coq10 [Coenzyme Q10] Dreams, Abnormal Nightmares Lisinopril Cough Per prior PCP, Dr. Abdias Tyler, records Pravastatin Myalgia ( and VALLADARES ) Per prior PCP, Dr. Abdias Tyler, records Ranitidine Nausea Only Per prior PCP, Dr. Abdias Tyler, records Bacitracin Contact Dermatitis, Itchy Throat, Rash and Runny Nose Carvedilol Dyspepsia Levaquin [Levofloxacin] Fluoroquinolones has been added 2/2 documented diagnosis of Myasthenia Gravis. IF MG is not a confirmed by testing diagnosis, deletion of this allergy may be considered. Myasthenia Gravis is documented in patient chart by PCP but patient and state Neurology has not informed them that this is a confirmed diagnosis. Nsaids CAD with unstable angina Penicillins Rash Past Medical History: Diagnosis Date TIFF (acute kidney injury) 09/24/2019 DR RAMAN STATES EVERYTHING IS NOW NORMAL Allergic rhinitis Arthritis joints & legs At risk for sleep apnea 04/08/2019 STOPBANG 08/07 ( snores loudly, BP med, BMI > 35, age > 50, Neck size > 16in, male) Atrial enlargement, left 01/26/2018 Mild on echocardiogram BPH (benign prostatic hyperplasia) CAD (Coronary Artery Disease) on CT scan 07/15/2019 Cardiac angina Cataract Depression Essential hypertension, benign H/O colonoscopy 08/24/2013 Hammer toe History of chicken pox 03/02/1958 History of measles 03/02/1958 History of mumps 03/02/1958 History of urinary urgency Hypercholesterolemia 03/02/1994 Hyperlipidemia Hyperlipoproteinemia 03/02/1994 LDL Hypersomnia Influenza vaccine refused 11/22/2015 Muscle weakness Obesity Orthopnea 01/07/2018 CONCHITA (obstructive sleep apnea) 06/07/[address] Evgeny Valdez NO significant sleep-related breathing disorder after sleep study 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 Avalos Type II diabetes mellitus, uncontrolled Vaccination refused by patient 11/22/2015 Zoster refused Vitamin D deficiency 03/02/2013 Past Surgical History: Procedure Laterality Date CYSTOURETHOSCOPY W/ INJECTION FOR CHEMODENERVATION BLADDER N/A 01/15/2021 Laterality: N/A; Surgeon: Terrance Moseley MD; Location: [facility] OR ARTHROTOMY KNEE Right 05/22/2020 Laterality: Right; Surgeon: Adele Matthews MD; Location: [facility] OR ARTHROPLASTY KNEE TOTAL Right 04/16/2020 Laterality: Right; Surgeon: Adele Matthews MD; Location: [facility] OR SLITTING PENIS PREPUCE N/A 04/26/2019 Laterality: N/A; Surgeon: Terrance Moseley MD; Location: [facility] OR PROSTATECTOMY TRANSURETHRAL ELECTROSURGICAL (TURP) N/A 04/26/2019 Laterality: N/A; Surgeon: Terrance Moseley MD; Location: [facility] OR CYSTOURETHROSCOPY W/ URETERAL CATHETERIZATION Bilateral 04/26/2019 Laterality: Bilateral; Surgeon: Terrance Moseley MD; Location: [facility] OR HEART CATHETERIZATION 2019 Dr. Persaud EYE SURGERY Bilateral 01/2018 eyelids raised EXTRACTION EXTRACAPSULAR CATARACT W/ IMPLANT (ECCE IOL) Right 11/10/2016 Laterality: Right; Surgeon: Yimi Maki MD; Location: [facility] OR EXTRACTION EXTRACAPSULAR CATARACT W/ IMPLANT (ECCE IOL) Left 10/27/2016 Laterality: Left; Surgeon: Yimi Maki MD; Location: [facility] OR COLONOSCOPY DIAGNOSTIC 08/24/2013 HERNIA REPAIR 1996 CIRCUMCISION N/A 03 Apr 2019 Social History Socioeconomic History Marital status: Spouse name: Filomena Merchant Number of children: 2 Years of education: Not on file Highest education level: Not on file Occupational History Employer: RETIRED Tobacco Use Smoking status: Never Smokeless tobacco: Never Vaping Use Vaping Use: Never used Substance and Sexual Activity Alcohol use: Yes Comment: infrequently Drug use: No Sexual activity: Not on file Other Topics Concern Not on file Social History Narrative Not on file Social Determinants of Health Financial Resource Strain: Not on file Food Insecurity: Not on file Transportation Needs: Not on file Physical Activity: Not on file Stress: Not on file Social Connections: Not on file Intimate Partner Violence: Not on file Housing Stability: Not on file Family History Problem Relation Age of Onset Hypertension Father Lipid Disorder Father high cholesterol Lung Cancer Father Diabetes Sister DM type 2 Current Outpatient Medications: betamethasone valerate 0.1 % Cream, Apply 1 Application topically 2 times daily as needed., Disp: , Rfl: Blood Glucose Monitoring Suppl (Blood Glucose Monitor System) w/Device Kit, 1 Each by Unknown route As directed., Disp: 1 kit, Rfl: 0 Calcium Polycarbophil (FIBER-CAPS PO), Take by mouth 2 times daily. ( increased 12/26/20), Disp: , Rfl: calcium-vitamin D 500-200 MG-UNIT tablet, Take 1 tablet by mouth 2 times daily., Disp: 180 tablet, Rfl: 3 carbidopa-levodopa 25-100 MG per tablet, Take 1.5 tablets by mouth 3 times daily., Disp: 135 tablet, Rfl: 11 carveDILOL 6.25 MG tablet, Take 1 tablet by mouth 2 times daily with meals., Disp: 60 tablet, Rfl: 0 clotrimazole 1 % Cream, Apply 1 Application topically 2 times daily. Apply between toes to rash once or twice daily, Disp: 60 g, Rfl: 1 Continuous Blood Gluc Ship Purser (FreeStyle Rayna 2 [place] Systm) Device, 1 Each by Unknown route every 4 hours., Disp: 1 Each, Rfl: 0 Continuous Blood Gluc Sensor (FreeStyle Rayna 2 Sensor Systm) Misc, 1 Each by Unknown route every 14 days., Disp: 2 Each, Rfl: 11 DISABILITY PLACARD, Disability placard end date 05/30/2024, Disp: 1 Each, Rfl: 0 furOSEmide 20 MG tablet, Take 1 tablet by mouth daily. Okay to take an extra 20 mg daily for weight gain or swelling., Disp: 120 tablet, Rfl: 3 Glucagon, rDNA, (Glucagon Emergency) 1 MG Kit, To use as directed for severe hypoglycemia, Disp: 1 kit, Rfl: 11 GLUCOSE MONITOR LANCETS PRESCRIPTION, Test blood sugar 4 times per day. Is on insulin therapy., Disp: 120 Container, Rfl: 11 GLUCOSE TEST STRIPS PRESCRIPTION, Test blood sugar 4 times per day. Is on insulin therapy., Disp: 120 Container, Rfl: 11 Icosapent Ethyl (Vascepa) 1 g capsule, Take 2 capsules by mouth 2 times daily. (for high triglycerides), Disp: 360 capsule, Rfl: 3 insulin NPH (NovoLIN N) 100 UNIT/ML injection, 20 units in the morning and at 15 units bedtime, Disp: 1 vial, Rfl: 3 insulin regular (NOVOLIN R) 1 unit/0.01 ml vial, Inject 15 Units under the skin 3 times daily (take before meals)., Disp: 2 vial, Rfl: 2 Insulin Syringe-Needle U-100 (INSULIN SYRINGE .3CC/31GX5/16 ) 31G X 5/16 0.3 ML Misc, To be used with insulin 4 times a day. E11.42, Disp: 150 Each, Rfl: 4 loratadine 10 MG tablet, TAKE ONE TABLET BY MOUTH DAILY NEEDED, Disp: 90 tablet, Rfl: 3 Magnesium 250 MG tablet, Take 1 tablet by mouth daily., Disp: , Rfl: metFORMIN 500 MG tablet, Take 2 tablets by mouth 2 times daily with meals., Disp: 360 tablet, Rfl: 1 Mirabegron ER (Myrbetriq) 50 MG tablet, Take 1 tablet by mouth daily., Disp: 30 tablet, Rfl: 11 Misc. Devices Misc, Men's uninary undergarment. 4/ day. , size XL, Dx: R39.41, R39.15, R35.0, N32.81, Disp: 120 Each, Rfl: 11 mupirocin 2 % ointment, Apply 1 Application topically 2 times daily., Disp: 15 g, Rfl: 0 nitroGLYCERIN 0.4 MG tablet SL, Place 1 tablet under tongue every 5 minutes as needed for Chest pain. max = 3 doses. If CP persists after 3rd dose, call 911, Disp: 25 tablet, Rfl: 3 polyethylene glycol 17 GM/SCOOP Powder powder, Take 17 g by mouth daily as needed for Constipation. ( altered 12/26/20), Disp: , Rfl: Pramipexole Dihydrochloride 0.75 MG tablet, TAKE ONE TABLET BY MOUTH EVERY EVENING FOR RESTLESS LEG SYNDROME, Disp: 90 tablet, Rfl: 3 rosuvastatin 20 MG tablet, Take 1 tablet by mouth at bedtime. For high cholesterol, Disp: 90 tablet, Rfl: 3 venlafaxine 75 MG tablet, Take 1 tablet by mouth 2 times daily., Disp: 180 tablet, Rfl: 3 Vitamin D3 1000 units Tab, Take 1 tablet by mouth daily., Disp: , Rfl: EXAM BP 136/80 (BP Location: Left arm, BP Position: Sitting) Pulse 85 Temp 97.4 F (36.3 C) (Temporal) Resp 14 Ht 1.829 m (6') Wt 120.3 kg (265 lb 4.8 oz) SpO2 98% BMI 35.98 kg/m Smoking Status Never Physical Exam Vitals and nursing note reviewed. Constitutional: General: He is not in acute distress. Appearance: He is not toxic-appearing. HENT: Head: Normocephalic and atraumatic. Mouth/Throat: Pharynx: Oropharynx is clear. No oropharyngeal exudate. Eyes: Extraocular Movements: Extraocular movements intact. Conjunctiva/sclera: Conjunctivae normal. Pupils: Pupils are equal, round, and reactive to light. Cardiovascular: Rate and Rhythm: Normal rate. Pulses: Normal pulses. Heart sounds: No murmur heard. Pulmonary: Effort: No respiratory distress. Breath sounds: Normal breath sounds. No rhonchi or rales. Abdominal: General: Bowel sounds are normal. There is no distension. Palpations: Abdomen is soft. There is no mass. Tenderness: There is no abdominal tenderness. There is no guarding. Genitourinary: Comments: No CVA or suprapubic tenderness Musculoskeletal: General: No swelling or tenderness. Normal range of motion. Cervical back: Normal range of motion. No rigidity. Right lower leg: Edema present. Left lower leg: Edema present. Comments: Right prosthetic knee with well-healed incision and no evidence of infection Skin: General: Skin is warm. Findings: No rash. Comments: Great toe onychomycosis with distal involvement Chronic vascular changes of lower extremity with mild +1 pitting edema with reactive erythema. No cellulitis noted. Abrasions at tibia area with scabs in place. +Dry scalng skin Neurological: Mental Status: He is alert and oriented to person, place, and time. Comments: Parkinsonian symptoms Psychiatric: Mood and Affect: Mood normal. Behavior: Behavior normal. Thought Content: Thought content normal. LABS CBC Lab Results Component Value Date WBC 7.9 04/23/2022 HGB 15.1 04/23/2022 HCT 44.5 04/23/2022 PLATELET 242 04/23/2022 MCV 81.6 04/23/2022 EDIF Lab Results Component Value Date RBCDISTRIBU 15.0 (H) 04/23/2022 EOSINOPHILS 3.1 10/14/2020 EOSINOPHILS 0.20 10/14/2020 BASOPHILS 0.4 10/14/2020 BASOPHILS 0.0 10/14/2020 LYMPHOCYTABS 0.90 (L) 10/14/2020 PLATELET 242 04/23/2022 MPV 7.2 (L) 04/23/2022 EDIF Lab Results Component Value Date RBCDISTRIBU 15.0 (H) 04/23/2022 EOSINOPHILS 3.1 10/14/2020 EOSINOPHILS 0.20 10/14/2020 BASOPHILS 0.4 10/14/2020 BASOPHILS 0.0 10/14/2020 LYMPHOCYTABS 0.90 (L) 10/14/2020 PLATELET 242 04/23/2022 MPV 7.2 (L) 04/23/2022 ESR Lab Results Component Value Date RBCDISTRIBU 15.0 (H) 04/23/2022 EOSINOPHILS 3.1 10/14/2020 EOSINOPHILS 0.20 10/14/2020 BASOPHILS 0.4 10/14/2020 BASOPHILS 0.0 10/14/2020 LYMPHOCYTABS 0.90 (L) 10/14/2020 PLATELET 242 04/23/2022 MPV 7.2 (L) 04/23/2022 Lab Results Component Value Date SODIUM 140 04/23/2022 POTASSIUM 4.4 04/23/2022 CHLORIDE 103 04/23/2022 CO2 27 04/23/2022 BUN 23 (H) 04/23/2022 CREATSERUM 0.93 04/23/2022 GLUCOSE 164 (H) 04/23/2022 Lab Results Component Value Date CRP 9.1 05/27/2021 Lab Results Component Value Date RESULTCULT NO GROWTH 21 DAYS 05/07/2021 . Lab Results Component Value Date GLUCOSE 164 (H) 04/23/2022 . Lab Results Component Value Date CALCIUM 9.6 04/23/2022 Lab Results Component Value Date ALBUMIN 4.7 04/23/2022 SIUM 05/27/2021 CHLORIDE 05/27/2021 CO2 03/ Lab Results Component Value Date BILITOTAL 0.6 04/23/2022 Lab Results Component Value Date ALT 11 04/23/2022 AST 18 04/23/2022 ALKPHOS 105 04/23/2022 BILITOTAL 0.6 04/23/2022 BILIDIRECT 0.2 10/14/2020 No orders to display IMAGING No results found. Diagnosis/Plan: There are no diagnoses linked to this encounter. Hx of RLE cellulitis -status post prior antibiotics on 05/21 given no cellulitis on exam on 05/21 visit -Given history of recurrent infection and ongoing risk factors of infection (venous insufficiency, fungal toenail infection) Was given prophylactic penicillin 500 mg po bid, the patient states he developed a papular rash of the lower extremities with itching due to that medication that resolved once he stopped the medication approximately 06/08; remains off of prophylactic antibiotics at this time -no evidence of infection at this time -Continue compression stockings; Per chart review Dr. Persaud regarding lymphedema compressions; However patient and state that they do not want to pursue this as it is very difficult to get on and off. -Excellent skin care -Avoid trauma to the lower extremities including animal exposures which can lead to severe infection, recommend wearing long pants, d/w patient as he has dogs -No cellulitis on today's exam, No recent events -continue good skin care, eucerin recommended Onychomycosis and tinea pedis -Nail trimming -Keep feet dry -continue topical clotrimazole between toes as needed -status post fluconazole, will restart 05/07 -disease mainly in distal area of great toe Right TKA -history of Synovial tap with negative cultures; 209 white cells and over 33,000 red cells with traumatic tap -CRP 9.1 and normal on 05/19 -No clear signs of PJI on today's exam Healthcare maintenance -status post Covid primary series in 1 booster early in 2021, discussed with him most recent vaccine to keep him up-to-date but he has deferred at this time. -history of pneumococcal conjugate and polysaccharide vaccine -History of tetanus shot in 2016 -History of prior hepatitis B vaccination - recommended high-dose influenza vaccine which he is deferred -D/w vaccines - defers today Diabetes -Elevated A1c to 7.8, 7.6, 8.0 - recommend excellent to glucose control, states that glucose control has been good at monitoring ongoing Overactive bladder -Patient seeing urology but is no longer getting Botox injections, Myrbetriq but states still issues-F/up urology discussed -UA 01/2022 negative Parkinson's -Patient sees neurology RTC in 3 months, sooner if any new infectious disease concerns. 22 minutes of care documented in this encounter [facility] 02-04-2022 History of Present illness Narrative Review of Systems A complete review of systems are negative except those consistent with HPI No fevers, chills or sweats No cough, chest pain No dysphagia, odynophagia No abdominal pain, nausea, vomiting, diarrhea No dysuria, frequency, hematuria No headache, dizziness, focal neurologic complaints No ear pain No sinus pain No rash No weight loss No joint or muscular pain Recent travel history? No HPI Deepa Abraham 71 y.o. male presents today for No chief complaint on file. HPI Deepa Abraham 71 y.o. male presents today for Follow-up and Onychomycosis Patient patient with a history of Parkinson's, HTN, heart disease, HLD and foot fungal infection. He was referred to ID clinic on 05/21/21. History of right foot fracture in a boot. History of fungal nail infection treated by Dr. De Dios 04/2021 with lamisel per notes but patient/ don't recall ever receiving this. Also history of Right knee synovial tap 05/07/21 with no growth on cultures. He is allergic to sulfa and has a contraindication to FQs based on possible exacerbation of neurologic condition. Patient was referred to ID clinic for RLE cellulitis. He reports having cellulitis several times a year in right leg. Has history of Right TKA. History of foot fracture but no hardware in this area. Patient had initial infectious disease consult visit on 05/21/21. Follow-up visit 06/11/21, he believes he has had a reaction to penicillin and stopped this a few days ago due to rash on lower extremities. Patient continues to have itching which he uses hydrocortisone cream but discussed with him trying to limit this as it will then his skin. Patient denies any significant pain in knee. Complains that the brace he was given for his foot fracture is causing pain in his leg. No fevers chills or sweats. No urinary or abdominal complaints. He has f/up on 07/23, Patient feels his legs feel well. No infections or cellulitis reported. Patient did end up finding a good pair of compression stockings that he wears approximate from 9 AM until bedtime. This is a loud his legs to feel better and he is using his cane less often to ambulate. Still on antifungals for ongoing onychomycosis. Infectious disease clinic appointment 09/24, but he continues to have lower extremity swelling. Is using compression stockings but not continuously. Does note some open wounds on right lower extremity but denies any cellulitis. No fevers or chills. No recent antibiotic use. No dysuria. Patient did receive injection of steroids in left hand with improvement of the symptoms by orthopedics. Follow-up 12/03, patient states that he intermittently gets redness and purple discoloration of his legs. No recent antibiotic use. Patient did have dog on lab and when he jumped off scratches lower leg 2 days ago. No signs of infection. No fevers or chills. Patient and state they are unable to use lymphatic compressions or suit as advised by vascular surgeon. Patient with history of occupational and physical therapy sessions however he is still having difficulty caring for his legs and wounds leaving to do so. Follow-up 02/04, patient has abrasion on his right tibia that he states has been there for about a month and a half and slowly healing. Chronic venous changes but no cellulitis or need for infection treatment recently. Still with right great toe Onychomycosis of distal tip. Some infection between toes as well. Patient is being treated by urology for some issues with incontinence. No reported UTI symptoms. Patient also on treatment for Parkinson's. No fevers or chills noted. Discussed with patient vaccines today. ROS Review of Systems A complete review of systems are negative except those consistent with HPI No fevers, chills or sweats No cough, chest pain No dysphagia, odynophagia No abdominal pain, nausea, vomiting, diarrhea No dysuria, frequency, hematuria No headache, dizziness, focal neurologic complaints No ear pain No sinus pain No rash No weight loss No joint or muscular pain Recent travel history? No HISTORY/ALLERGIES/MEDS Allergies Allergen Reactions Hydroxyzine Confusion Lipitor [Atorvastatin] Myalgia Intolerable muscle pain Per prior PCP, Dr. Abdias Tyler, records and CoQ10 failure Bactrim [Sulfamethoxazole-Trimethoprim] Hives Coq10 [Coenzyme Q10] Dreams, Abnormal Nightmares Lisinopril Cough Per prior PCP, Dr. Abdias Tyler, records Pravastatin Myalgia ( and VALLADARES ) Per prior PCP, Dr. Abdias Tyler, records Ranitidine Nausea Only Per prior PCP, Dr. Abdias Tyler, records Bacitracin Contact Dermatitis, Itchy Throat, Rash and Runny Nose Carvedilol Dyspepsia Levaquin [Levofloxacin] Fluoroquinolones has been added 2/2 documented diagnosis of Myasthenia Gravis. IF MG is not a confirmed by testing diagnosis, deletion of this allergy may be considered. Myasthenia Gravis is documented in patient chart by PCP but patient and state Neurology has not informed them that this is a confirmed diagnosis. Nsaids CAD with unstable angina Penicillins Rash Past Medical History: Diagnosis Date TIFF (acute kidney injury) 09/24/2019 DR RAMAN STATES EVERYTHING IS NOW NORMAL Allergic rhinitis Arthritis joints & legs At risk for sleep apnea 04/08/2019 STOPBANG 08/07 ( snores loudly, BP med, BMI > 35, age > 50, Neck size > 16in, male) Atrial enlargement, left 01/26/2018 Mild on echocardiogram BPH (benign prostatic hyperplasia) CAD (Coronary Artery Disease) on CT scan 07/15/2019 Cardiac angina Cataract Depression Essential hypertension, benign H/O colonoscopy 08/24/2013 Hammer toe History of chicken pox 03/02/1958 History of measles 03/02/1958 History of mumps 03/02/1958 History of urinary urgency Hypercholesterolemia 03/02/1994 Hyperlipidemia Hyperlipoproteinemia 03/02/1994 LDL Hypersomnia Influenza vaccine refused 11/22/2015 Muscle weakness Obesity Orthopnea 01/07/2018 CONCHITA (obstructive sleep apnea) 06/07/[address] Evgeny Valdez NO significant sleep-related breathing disorder after sleep study 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 Avalos Type II diabetes mellitus, uncontrolled Vaccination refused by patient 11/22/2015 Zoster refused Vitamin D deficiency 03/02/2013 Past Surgical History: Procedure Laterality Date CYSTOURETHOSCOPY W/ INJECTION FOR CHEMODENERVATION BLADDER N/A 01/15/2021 Laterality: N/A; Surgeon: Terrance Moseley MD; Location: [facility] OR ARTHROTOMY KNEE Right 05/22/2020 Laterality: Right; Surgeon: Adele Matthews MD; Location: [facility] OR ARTHROPLASTY KNEE TOTAL Right 04/16/2020 Laterality: Right; Surgeon: Adele Matthews MD; Location: [facility] OR SLITTING PENIS PREPUCE N/A 04/26/2019 Laterality: N/A; Surgeon: Terrance Moseley MD; Location: [facility] OR PROSTATECTOMY TRANSURETHRAL ELECTROSURGICAL (TURP) N/A 04/26/2019 Laterality: N/A; Surgeon: Terrance Moseley MD; Location: [facility] CYSTOURETHROSCOPY W/ URETERAL CATHETERIZATION Bilateral 04/26/2019 Laterality: Bilateral; Surgeon: Terrance Moseley MD; Location: [facility] OR HEART CATHETERIZATION 2019 Dr. Persaud EYE SURGERY Bilateral 01/2018 eyelids raised EXTRACTION EXTRACAPSULAR CATARACT W/ IMPLANT (ECCE IOL) Right 11/10/2016 Laterality: Right; Surgeon: Yimi Maki MD; Location: [facility] OR EXTRACTION EXTRACAPSULAR CATARACT W/ IMPLANT (ECCE IOL) Left 10/27/2016 Laterality: Left; Surgeon: Yimi Maki MD; Location: [facility] OR COLONOSCOPY DIAGNOSTIC 08/24/2013 HERNIA REPAIR 1996 CIRCUMCISION N/A 03 Apr 2019 Social History Socioeconomic History Marital status: Spouse name: Filomena Merchant Number of children: 2 Years of education: Not on file Highest education level: Not on file Occupational History Employer: RETIRED Tobacco Use Smoking status: Never Smokeless tobacco: Never Vaping Use Vaping Use: Never used Substance and Sexual Activity Alcohol use: Yes Comment: infrequently Drug use: No Sexual activity: Not on file Other Topics Concern Not on file Social History Narrative Not on file Social Determinants of Health Financial Resource Strain: Not on file Food Insecurity: Not on file Transportation Needs: Not on file Physical Activity: Not on file Stress: Not on file Social Connections: Not on file Intimate Partner Violence: Not on file Housing Stability: Not on file Family History Problem Relation Age of Onset Hypertension Father Lipid Disorder Father high cholesterol Lung Cancer Father Diabetes Sister DM type 2 Current Outpatient Medications: betamethasone valerate 0.1 % Cream, Apply 1 Application topically 2 times daily as needed., Disp: , Rfl: Blood Glucose Monitoring Suppl (Blood Glucose Monitor System) w/Device Kit, 1 Each by Unknown route As directed., Disp: 1 kit, Rfl: 0 Calcium Polycarbophil (FIBER-CAPS PO), Take by mouth 2 times daily. ( increased 12/26/20), Disp: , Rfl: calcium-vitamin D 500-200 MG-UNIT tablet, Take 1 tablet by mouth 2 times daily., Disp: 180 tablet, Rfl: 3 carbidopa-levodopa 25-100 MG per tablet, Take 1.5 tablets by mouth 3 times daily., Disp: 135 tablet, Rfl: 11 carveDILOL 6.25 MG tablet, Take 1 tablet by mouth 2 times daily with meals., Disp: 60 tablet, Rfl: 0 clotrimazole 1 % Cream, Apply 1 Application topically 2 times daily. Apply between toes to rash once or twice daily, Disp: 60 g, Rfl: 1 Continuous Blood Gluc Ship Purser ([place] Rayna 2 [place] Systm) Device, 1 Each by Unknown route every 4 hours., Disp: 1 Each, Rfl: 0 Continuous Blood Gluc Sensor (FreeStyle Rayna 2 Sensor Systm) Misc, 1 Each by Unknown route every 14 days., Disp: 2 Each, Rfl: 11 DISABILITY PLACARD, Disability placard end date 05/30/2024, Disp: 1 Each, Rfl: 0 furOSEmide 20 MG tablet, Take 1 tablet by mouth daily. Okay to take an extra 20 mg daily for weight gain or swelling., Disp: 120 tablet, Rfl: 3 Glucagon, rDNA, (Glucagon Emergency) 1 MG Kit, To use as directed for severe hypoglycemia, Disp: 1 kit, Rfl: 11 GLUCOSE MONITOR LANCETS PRESCRIPTION, Test blood sugar 4 times per day. Is on insulin therapy., Disp: 120 Container, Rfl: 11 GLUCOSE TEST STRIPS PRESCRIPTION, Test blood sugar 4 times per day. Is on insulin therapy., Disp: 120 Container, Rfl: 11 Icosapent Ethyl (Vascepa) 1 g capsule, Take 2 capsules by mouth 2 times daily. (for high triglycerides), Disp: 360 capsule, Rfl: 3 insulin NPH (NovoLIN N) 100 UNIT/ML injection, 20 units in the morning and at 15 units bedtime, Disp: 1 vial, Rfl: 3 insulin regular (NOVOLIN R) 1 unit/0.01 ml vial, Inject 15 Units under the skin 3 times daily (take before meals)., Disp: 2 vial, Rfl: 2 Insulin Syringe-Needle U-100 (INSULIN SYRINGE .3CC/31GX5/16 ) 31G X 5/16 0.3 ML Misc, To be used with insulin 4 times a day. E11.42, Disp: 150 Each, Rfl: 4 loratadine 10 MG tablet, TAKE ONE TABLET BY MOUTH DAILY NEEDED, Disp: 90 tablet, Rfl: 3 Magnesium 250 MG tablet, Take 250 mg by mouth daily., Disp: , Rfl: metFORMIN 500 MG tablet, Take 2 tablets by mouth 2 times daily with meals., Disp: 360 tablet, Rfl: 1 Mirabegron ER (Myrbetriq) 50 MG tablet, Take 1 tablet by mouth daily., Disp: 30 tablet, Rfl: 11 Misc. Devices Misc, Men's uninary undergarment. 4/ day. , size XL, Dx: R39.41, R39.15, R35.0, N32.81, Disp: 120 Each, Rfl: 11 mupirocin 2 % ointment, Apply 1 Application topically 2 times daily., Disp: 15 g, Rfl: 0 nitroGLYCERIN 0.4 MG tablet SL, Place 1 tablet under tongue every 5 minutes as needed for Chest pain. max = 3 doses. If CP persists after 3rd dose, call 911, Disp: 25 tablet, Rfl: 3 polyethylene glycol 17 GM/SCOOP Powder powder, Take 17 g by mouth daily as needed for Constipation. ( altered 12/26/20), Disp: , Rfl: Pramipexole Dihydrochloride 0.75 MG tablet, TAKE ONE TABLET BY MOUTH EVERY EVENING FOR RESTLESS LEG SYNDROME, Disp: 90 tablet, Rfl: 3 rosuvastatin 20 MG tablet, Take 1 tablet by mouth at bedtime. For high cholesterol, Disp: 90 tablet, Rfl: 3 venlafaxine 75 MG tablet, Take 1 tablet by mouth 2 times daily., Disp: 180 tablet, Rfl: 3 Vitamin D3 1000 units Tab, Take 1,000 Units by mouth daily. , Disp: , Rfl: EXAM BP 126/82 (BP Location: Left arm, BP Position: Sitting) Pulse 83 Temp 98.4 F (36.9 C) (Temporal) Resp 14 Ht 1.829 m (6') Wt 119.5 kg (263 lb 6.4 oz) SpO2 97% BMI 35.72 kg/m Smoking Status Never Physical Exam Vitals and nursing note reviewed. Constitutional: General: He is not in acute distress. Appearance: He is not toxic-appearing. HENT: Head: Normocephalic and atraumatic. Mouth/Throat: Pharynx: Oropharynx is clear. No oropharyngeal exudate. Eyes: Extraocular Movements: Extraocular movements intact. Conjunctiva/sclera: Conjunctivae normal. Pupils: Pupils are equal, round, and reactive to light. Cardiovascular: Rate and Rhythm: Normal rate. Pulses: Normal pulses. Heart sounds: No murmur heard. Pulmonary: Effort: No respiratory distress. Breath sounds: Normal breath sounds. No rhonchi or rales. Abdominal: General: Bowel sounds are normal. There is no distension. Palpations: Abdomen is soft. There is no mass. Tenderness: There is no abdominal tenderness. There is no guarding. Genitourinary: Comments: No CVA or suprapubic tenderness Musculoskeletal: General: No swelling or tenderness. Normal range of motion. Cervical back: Normal range of motion. No rigidity. Right lower leg: Edema present. Left lower leg: Edema present. Comments: Right prosthetic knee with well-healed incision and no evidence of infection Skin: General: Skin is warm. Findings: No rash. Comments: Great toe onychomycosis with improvement But still distal involvement Chronic vascular changes of lower extremity with mild +1 pitting edema with reactive erythema. No cellulitis noted. Abrasion at tibia area with scab in place. Neurological: Mental Status: He is alert and oriented to person, place, and time. Comments: Parkinsonian symptoms Psychiatric: Mood and Affect: Mood normal. Behavior: Behavior normal. Thought Content: Thought content normal. LABS CBC Lab Results Component Value Date WBC 8.2 12/19/2021 HGB 14.5 12/19/2021 HCT 41.8 (L) 12/19/2021 PLATELET 234 12/19/2021 MCV 80.4 12/19/2021 EDIF Lab Results Component Value Date RBCDISTRIBU 15.2 (H) 12/19/2021 EOSINOPHILS 3.1 10/14/2020 EOSINOPHILS 0.20 10/14/2020 BASOPHILS 0.4 10/14/2020 BASOPHILS 0.0 10/14/2020 LYMPHOCYTABS 0.90 (L) 10/14/2020 PLATELET 234 12/19/2021 MPV 6.6 (L) 12/19/2021 EDIF Lab Results Component Value Date RBCDISTRIBU 15.2 (H) 12/19/2021 EOSINOPHILS 3.1 10/14/2020 EOSINOPHILS 0.20 10/14/2020 BASOPHILS 0.4 10/14/2020 BASOPHILS 0.0 10/14/2020 LYMPHOCYTABS 0.90 (L) 10/14/2020 PLATELET 234 12/19/2021 MPV 6.6 (L) 12/19/2021 ESR Lab Results Component Value Date RBCDISTRIBU 15.2 (H) 12/19/2021 EOSINOPHILS 3.1 10/14/2020 EOSINOPHILS 0.20 10/14/2020 BASOPHILS 0.4 10/14/2020 BASOPHILS 0.0 10/14/2020 LYMPHOCYTABS 0.90 (L) 10/14/2020 PLATELET 234 12/19/2021 MPV 6.6 (L) 12/19/2021 Lab Results Component Value Date SODIUM 139 12/19/2021 POTASSIUM 4.4 12/19/2021 CHLORIDE 100 12/19/2021 CO2 27 12/19/2021 BUN 22 (H) 12/19/2021 CREATSERUM 1.14 12/19/2021 GLUCOSE 100 01/31/2022 Lab Results Component Value Date CRP 9.1 05/27/2021 Lab Results Component Value Date RESULTCULT NO GROWTH 21 DAYS 05/07/2021 . Lab Results Component Value Date GLUCOSE 100 01/31/2022 . Lab Results Component Value Date CALCIUM 9.2 12/19/2021 Lab Results Component Value Date ALBUMIN 4.5 12/19/2021 SIUM 05/27/2021 CHLORIDE 05/27/2021 CO2 03/ Lab Results Component Value Date BILITOTAL 0.4 12/19/2021 Lab Results Component Value Date ALT 11 12/19/2021 AST 19 12/19/2021 ALKPHOS 98 12/19/2021 BILITOTAL 0.4 12/19/2021 BILIDIRECT 0.2 10/14/2020 No orders to display IMAGING No results found. Diagnosis/Plan: There are no diagnoses linked to this encounter. Hx of RLE cellulitis -status post prior antibiotics on 05/21 given no cellulitis on exam on 05/21 visit -Given history of recurrent infection and ongoing risk factors of infection (venous insufficiency, fungal toenail infection) Was given prophylactic penicillin 500 mg po bid, the patient states he developed a papular rash of the lower extremities with itching due to that medication that resolved once he stopped the medication approximately 06/08; remains off of prophylactic antibiotics at this time -no evidence of infection at this time -Continue compression stockings; Per chart review Dr. Persaud regarding lymphedema compressions; However patient and state that they do not want to pursue this as it is very difficult to get on and off. -Excellent skin care -Avoid trauma to the lower extremities including animal exposures which can lead to severe infection, recommend wearing long pants -No cellulitis on today's exam -continue good skin care Onychomycosis and tinea pedis -Nail trimming -Keep feet dry -continue topical clotrimazole between toes as needed -status post fluconazole -disease only on distal area of great toe Right TKA -history of Synovial tap with negative cultures; 209 white cells and over 33,000 red cells with traumatic tap -CRP 9.1 and normal on 05/19 -No clear signs of PJI on today's exam Healthcare maintenance -status post Covid primary series in 1 booster early in 2021, discussed with him most recent vaccine to keep him up-to-date but he has deferred at this time. -history of pneumococcal conjugate and polysaccharide vaccine -History of tetanus shot in 2016 -History of prior hepatitis B vaccination - recommended high-dose influenza vaccine which he is deferred -Discussed with him shingles vaccine, he is going to look into this at his local pharmacy Diabetes -Elevated A1c to 7.8 on 05/27 ; follow-up A1c 7.6 - recommend excellent to glucose control, states that glucose control has been good at monitoring ongoing Overactive bladder -Patient seeing urology who is considering Botox injections if possible; not available according to urology -patient with try a trial of a medication but has not yet picked up -Recent urinalysis was negative for infection 08/26, and symptoms of UTI on evaluation Parkinson's -Patient see neurology RTC in 3 months, sooner if any new infectious disease concerns. 25 minutes of care documented in this encounter [facility] 01-31-2022 History of Present illness Narrative Chief Complaint Patient presents with Follow-up OAB HPI: 71 y.o. male known to the urology department for BPH with severe lower urinary tract symptoms. History of TURP in 04/2018. He underwent intravesical botox injections 12/2020 due to worsening LUTS. He had signficant improvement initially but symptoms have gotten progressively worse over the past year. Anticholinergics were ineffective. Myrbetriq was cost prohibitive; pt would like to try the medication again. ROS: Nurse Note: Review of Systems Constitutional: Negative. HENT: Negative. Eyes: Negative. Respiratory: Negative. Cardiovascular: Negative. Gastrointestinal: Negative. Endocrine: Negative. Genitourinary: Positive for frequency and urgency. NOCTURIA Musculoskeletal: Negative. Skin: Negative. Allergic/Immunologic: Negative. Neurological: Negative. Hematological: Negative. Psychiatric/Behavioral: Negative. Nursing Assessment: Physical Exam FOLLOW UP FOR OAB Nocturia 2- 5 x PVR: 21 Lab Results Component Value Date APPEARANCE CLEAR 01/31/2022 COLOR YELLOW 01/31/2022 SPECIFICGRAV >=1.030 01/31/2022 BLOOD NEG 01/31/2022 PH 5.5 01/31/2022 PROTEIN TRACE 01/31/2022 UROBILINOGEN 1.0 01/31/2022 NITRITE NEG 01/31/2022 LEUKOCYTE NEG 01/31/2022 LEUKOCESTUR NEGATIVE 04/19/2020 History Allergies Allergen Reactions Hydroxyzine Confusion Lipitor [Atorvastatin] Myalgia Intolerable muscle pain Per prior PCP, Dr. Abdias Tyler, records and CoQ10 failure Bactrim [Sulfamethoxazole-Trimethoprim] Hives Coq10 [Coenzyme Q10] Dreams, Abnormal Nightmares Lisinopril Cough Per prior PCP, Dr. Abdias Tyler, records Pravastatin Myalgia ( and VALLADARES ) Per prior PCP, Dr. Abdias Tyler, records Ranitidine Nausea Only Per prior PCP, Dr. Abdias Tyler, records Bacitracin Contact Dermatitis, Itchy Throat, Rash and Runny Nose Carvedilol Dyspepsia Levaquin [Levofloxacin] Fluoroquinolones has been added 2/2 documented diagnosis of Myasthenia Gravis. IF MG is not a confirmed by testing diagnosis, deletion of this allergy may be considered. Myasthenia Gravis is documented in patient chart by PCP but patient and state Neurology has not informed them that this is a confirmed diagnosis. Nsaids CAD with unstable angina Penicillins Rash has Obesity; Allergic rhinitis; Type 1 diabetes mellitus with other specified complication; Hypercholesterolemia; RLS (restless legs syndrome); Vitamin D deficiency; Periodic limb movement disorder; Diabetic Polyneuropathy; Pes planus; Hypertension, essential; Other motor neuron disease; Hypersomnia; BPH (benign prostatic hyperplasia); Hammer toe; Cervical radiculopathy; Chronic neck pain; Impingement syndrome of left shoulder; Depression, recurrent-moderate; Edema, localized to the legs; Orthopnea; Wheezing; Shortness of breath; Venous stasis ulcer limited to breakdown of skin without varicose veins; Bloating; Hypertensive heart disease without heart failure; Atrial enlargement, left; Aortic valve sclerosis; Pulmonary hypertension; Pericardial effusion; Ptosis, paralytic of bilateral eyelids; Venous insufficiency; Restrictive lung disease; Neuropathic pain; Osteoarthritis of left knee, primarily; Fracture shaft of right FIBULA, traumatic, Closed nondisplaced transverse; Osteoarthritis of right knee, primary-severe; Recurrent falls; Unstable angina; Atrial Fibrillation, NOS; Abnormal cardiovascular function; Benign prostatic hyperplasia with urinary obstruction; Urge incontinence; Phimosis; CONCHITA (obstructive sleep apnea); Reactive airway disease without complication; Diastolic heart disease-chronic with failure; CAD (Coronary Artery Disease) on CT scan; CANCER-Adenocarcinoma of prostate, stage 1; Metabolic encephalopathy; Hypertriglyceridemia; S/P TKR (total knee replacement), right; Diabetic polyneuropathy associated with type 2 diabetes mellitus; Obesity (BMI 35-39.9); Osteoarthritis; Constipation, chronic-idiopathic; Parkinson's disease; Dermatophytosis of nail; Osteopenia; Overactive bladder; Urinary urgency; Urinary frequency; History of mumps; History of measles; and History of chicken pox on their problem list. Current Outpatient Medications Medication Sig Dispense Refill betamethasone valerate 0.1 % Cream Apply 1 Application topically 2 times daily as needed. Blood Glucose Monitoring Suppl (Blood Glucose Monitor System) w/Device Kit 1 Each by Unknown route As directed. 1 kit 0 Calcium Polycarbophil (FIBER-CAPS PO) Take by mouth 2 times daily. ( increased 12/26/20) calcium-vitamin D 500-200 MG-UNIT tablet Take 1 tablet by mouth 2 times daily. 180 tablet 3 carbidopa-levodopa 25-100 MG per tablet Take 1.5 tablets by mouth 3 times daily. 135 tablet 11 carveDILOL 6.25 MG tablet Take 1 tablet by mouth 2 times daily with meals. 60 tablet 0 clotrimazole 1 % Cream Apply 1 Application topically 2 times daily. Apply between toes to rash once or twice daily 60 g 1 Continuous Blood Gluc Ship Purser (FreeStyle Rayna 2 [place] Systm) Device 1 Each by Unknown route every 4 hours. 1 Each 0 Continuous Blood Gluc Sensor (FreeStyle Rayna 2 Sensor Systm) Misc 1 Each by Unknown route every 14 days. 2 Each 11 DISABILITY PLACARD Disability placard end date 05/30/2024 1 Each 0 furOSEmide 20 MG tablet Take 1 tablet by mouth daily. Okay to take an extra 20 mg daily for weight gain or swelling. 120 tablet 3 Glucagon, rDNA, (Glucagon Emergency) 1 MG Kit To use as directed for severe hypoglycemia 1 kit 11 GLUCOSE MONITOR LANCETS PRESCRIPTION Test blood sugar 4 times per day. Is on insulin therapy. 120 Container 11 GLUCOSE TEST STRIPS PRESCRIPTION Test blood sugar 4 times per day. Is on insulin therapy. 120 Container 11 Icosapent Ethyl (Vascepa) 1 g capsule Take 2 capsules by mouth 2 times daily. (for high triglycerides) 360 capsule 3 insulin NPH (NovoLIN N) 100 UNIT/ML injection 20 units in the morning and at 15 units bedtime 1 vial 3 insulin regular (NOVOLIN R) 1 unit/0.01 ml vial Inject 15 Units under the skin 3 times daily (take before meals). 2 vial 2 Insulin Syringe-Needle U-100 (INSULIN SYRINGE .3CC/31GX5/16 ) 31G X 5/16 0.3 ML Misc To be used with insulin 4 times a day. E11.42 150 Each 4 loratadine 10 MG tablet TAKE ONE TABLET BY MOUTH DAILY NEEDED 90 tablet 3 Magnesium 250 MG tablet Take 250 mg by mouth daily. metFORMIN 500 MG tablet Take 2 tablets by mouth 2 times daily with meals. 360 tablet 1 Misc. Devices Misc Men's uninary undergarment. 4/ day. , size XL, Dx: R39.41, R39.15, R35.0, N32.81 120 Each 11 mupirocin 2 % ointment Apply 1 Application topically 2 times daily. 15 g 0 nitroGLYCERIN 0.[address] 1 tablet under tongue every 5 minutes as needed for Chest pain. max = 3 doses. If CP persists after 3rd dose, call 911 25 tablet 3 polyethylene glycol 17 GM/SCOOP Powder powder Take 17 g by mouth daily as needed for Constipation. ( altered 12/26/20) Pramipexole Dihydrochloride 0.75 MG tablet TAKE ONE TABLET BY MOUTH EVERY EVENING FOR RESTLESS LEG SYNDROME 90 tablet 3 rosuvastatin 20 MG tablet Take 1 tablet by mouth at bedtime. For high cholesterol 90 tablet 3 venlafaxine 75 MG tablet Take 1 tablet by mouth 2 times daily. 180 tablet 3 Vitamin D3 1000 units Tab Take 1,000 Units by mouth daily. No current facility-administered medications for this visit. family history includes Diabetes in his sister; Hypertension in his father; Lipid Disorder in his father; Lung Cancer in his father. Past Medical History: Diagnosis Date History of mumps 03/02/1958 History of measles 03/02/1958 History of chicken pox 03/02/1958 Restless leg 03/02/1989 Pes planus 03/02/1992 Hyperlipoproteinemia 03/02/1994 LDL Hypercholesterolemia 03/02/1994 Type 2 diabetes mellitus with polyneuropathy 03/02/[address] 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 Periodic limb movement disorder 06/07/2015 CONCHITA (obstructive sleep apnea) 06/07/[address] Evgeny Valdez NO significant sleep-related breathing disorder after sleep study Influenza vaccine refused 11/22/2015 Vaccination refused by patient 11/22/2015 Zoster refused Orthopnea 01/07/2018 Pulmonary hypertension 01/26/2018 Moderate pulmonary hypertension with RVSP of 53.98 mmHg Atrial enlargement, left 01/26/2018 Mild on echocardiogram Pericardial effusion 01/26/2018 Mild on echocardiogram Restrictive lung disease 01/29/2018 Moderate on pulmonary function tests, with CC: of wheezing and decades of smoke EXPOSURE Restrictive lung disease 01/29/2018 Moderate on pulmonary function tests, with CC: of wheezing and decades of smoke EXPOSURE At risk for sleep apnea 04/08/2019 STOPBANG 08/07 ( snores loudly, BP med, BMI > 35, age > 50, Neck size > 16in, male) Other secondary pulmonary hypertension 06/23/2019 CAD (Coronary Artery Disease) on CT scan 07/15/2019 TIFF (acute kidney injury) 09/24/2019 DR RAMAN STATES EVERYTHING IS NOW NORMAL Allergic rhinitis Arthritis joints & legs BPH (benign prostatic hyperplasia) Cardiac angina Cataract Depression Essential hypertension, benign Hammer toe History of urinary urgency Hyperlipidemia Hypersomnia Muscle weakness Obesity Polyneuropathy Type II diabetes mellitus, uncontrolled Past Surgical History: Procedure Laterality Date CYSTOURETHOSCOPY W/ INJECTION FOR CHEMODENERVATION BLADDER N/A 01/15/2021 Laterality: N/A; Surgeon: Terrance Moseley MD; Location: [facility] OR ARTHROTOMY KNEE Right 05/22/2020 Laterality: Right; Surgeon: Adele Matthews MD; Location: [facility] OR ARTHROPLASTY KNEE TOTAL Right 04/16/2020 Laterality: Right; Surgeon: Adele Matthews MD; Location: [facility] OR SLITTING PENIS PREPUCE N/A 04/26/2019 Laterality: N/A; Surgeon: Terrance Mosleey MD; Location: [facility] OR PROSTATECTOMY TRANSURETHRAL ELECTROSURGICAL (TURP) N/A 04/26/2019 Laterality: N/A; Surgeon: Terrance Moseley MD; Location: [facility] OR CYSTOURETHROSCOPY W/ URETERAL CATHETERIZATION Bilateral 04/26/2019 Laterality: Bilateral; Surgeon: Terrance Moseley MD; Location: [facility] OR HEART CATHETERIZATION 2019 Dr. Persaud EYE SURGERY Bilateral 01/2018 eyelids raised EXTRACTION EXTRACAPSULAR CATARACT W/ IMPLANT (ECCE IOL) Right 11/10/2016 Laterality: Right; Surgeon: Yimi Maki MD; Location: [facility] OR EXTRACTION EXTRACAPSULAR CATARACT W/ IMPLANT (ECCE IOL) Left 10/27/2016 Laterality: Left; Surgeon: Yimi Maki MD; Location: [facility] OR COLONOSCOPY DIAGNOSTIC 08/24/2013 HERNIA REPAIR 1996 CIRCUMCISION N/A 03 Apr 2019 Social History Socioeconomic History Marital status: Spouse name: Filomena Merchant Number of children: 2 Years of education: Not on file Highest education level: Not on file Occupational History Employer: RETIRED Tobacco Use Smoking status: Never Smokeless tobacco: Never Vaping Use Vaping Use: Never used Substance and Sexual Activity Alcohol use: Yes Comment: infrequently Drug use: No Sexual activity: Not on file Other Topics Concern Not on file Social History Narrative Not on file Social Determinants of Health Financial Resource Strain: Not on file Food Insecurity: Not on file Transportation Needs: Not on file Physical Activity: Not on file Stress: Not on file Social Connections: Not on file Intimate Partner Violence: Not on file Housing Stability: Not on file Physical Exam: Resp 18 Ht 1.829 m (6') Wt 119.3 kg (263 lb) SpO2 98% BMI 35.67 kg/m Smoking Status Never Body mass index is 35.67 kg/m . Constitutional: Appears well, no acute distress. Cardiovascular: Regular rate and rhythm. No lower extremity edema. Pulmonary: Respirations even and unlabored. Lungs clear to auscultation. Abdomen: Soft, non-tender. Bowel sounds active x 4. No CVA/suprapubic tenderness noted. Musculoskeletal: All major joints are without swelling, erythema, or bony deformity. Normal range of motion of all major joints. Skin: Warm, dry and intact. Neuro: No sensory or motor deficits. Assessment/Plan: 1. OAB (overactive bladder) 2. Urinary urgency 3. Urinary frequency 4. Urge incontinence Urinalysis and bladder scan are normal. Worsening lower urinary tract symptoms. He would like to repeat botox injections. Unfortunately this is not currently being offered. He will try Myrbetriq again for now. They have moved to [place] and are considering changing urologists. We will continue annual follow up for now. If they find a new urologist they will call the office and we will place referral for them. PSA ordered, we will call with results. HgbA1c 7.6 PSA 0.287 (12/2020) - POCT URINALYSIS DIPSTICK AUTOMATED W/O SCOP Patient was advised to call with any questions or concerns. If symptoms worsen patient was advised to follow up in our office or the Emergency Dept. Benefits, Risks, Contraindications, and Complications of recommended treatments were explained the patient understands and agrees to proceed with plan. Nurse Note: Review of Systems Constitutional: Negative. HENT: Negative. Eyes: Negative. Respiratory: Negative. Cardiovascular: Negative. Gastrointestinal: Negative. Endocrine: Negative. Genitourinary: Positive for frequency and urgency. NOCTURIA Musculoskeletal: Negative. Skin: Negative. Allergic/Immunologic: Negative. Neurological: Negative. Hematological: Negative. Psychiatric/Behavioral: Negative. Nursing Assessment: Physical Exam FOLLOW UP FOR OAB Nocturia 2- 5 x PVR: 21 Lab Results Component Value Date APPEARANCE CLEAR 01/31/2022 COLOR YELLOW 01/31/2022 SPECIFICGRAV >=1.030 01/31/2022 BLOOD NEG 01/31/2022 PH 5.5 01/31/2022 PROTEIN TRACE 01/31/2022 UROBILINOGEN 1.0 01/31/2022 NITRITE NEG 01/31/2022 LEUKOCYTE NEG 01/31/2022 LEUKOCESTUR NEGATIVE 04/19/2020 documented in this encounter [facility] 01-21-2022 History of Present illness Narrative ((((Portions of this note utilized [employer] dictation software, please excuse any typographical or grammatical errors.)))) Chief Complaint: Deepa Abraham is a 71 y.o. male who comes in with the following complaint(s): Chief Complaint Patient presents with Follow-up RLS, HRM, Chol/TG TIME IN : 11:55 AM TIME OUT: 1202--7 TIME IN : 1:12 PM TIME OUT:13:37--32 TIME IN : 5:11 PM TIME OUT: 1716--5 HPI: Hypercholesterolemia- Hypertriglyceridemia High cholesterol is a chronic condition for the patient, diagnosed around 1994 with associated diabetes and of 07/15/2019 with coronary artery disease, noted on CT scan. He was diagnosed with hypertriglyceridemia 10/10/19, mild at a baseline level of 194 mg/dL on statin drugs, with established coronary disease. History of myalgias on atorvastatin and pravastatin, with CoQ10 FAILURE. (CoQ10 intolerance with nightmares) INTERVAL NOTE: 1. At our 11/26/2021 visit with an LDL of 45 and triglycerides of 111, no changes were made in his lipid lowering medications. 2. He denies any unexplained muscle aches or muscle pains 01/21/22 Lipid lowering medications - Icosapent ethyl/ Vascepa 1 g. Two pills b.i.d. ( 07/15/2019 ) rosuvastatin 20 mg nightly Lab Results Component Value Date CHOLESTEROL 97 (L) 12/19/2021 TRIG 134 12/19/2021 HDL 31 12/19/2021 LDLCALC 39 12/19/2021 Restless leg syndrome - This is a chronic condition from around 1997, previously managed by Dr. Aguilar of neurology who is no longer with the company. INTERVAL NOTE: 1. At his it 11/26/2020 visit, no changes were made in his pramipexole 0.75 mg q.h.s. regimen. 2. He denies any feelings of brain fogginess or sleepiness in the morning. Depression, recurrent-moderate - This patient has had depression since around 2011. He was doing fair, with some room for improvement but not wishing to change medical therapy when last discussed 12/26/20. Both he and his are in agreement that overall his depression is pretty much okay and his concurs, 01/21/2022. No ideations. High Risk Medication - This patient is prescribed medication which warrants periodic serum surveillance. Preventative Care - He's not had the shingles shots, and has not had this years flu shot. No visits with results within 1 Month(s) from this visit. Latest known visit with results is: Appointment on 12/19/2021 Component Date Value Ref Range Status HEMOGLOBIN A1C 12/19/2021 7.6 (H) 0 - 6 % Final Comment: NORMAL <5.7% PREDIABETES 5.7-6.4% DIABETES 6.5% OR HIGHER Estimated Average Glucose 12/19/2021 171 mg/dL Final GLUCOSE 12/19/2021 152 (H) 70 - 100 MG/DL Final Comment: NORMAL <100 mg/dL PREDIABETES 101-126 mg/dL DIABETES 126 mg/dL or higher BUN 12/19/2021 22 (H) 7 - 20 MG/DL Final CREATININE SERUM 12/19/2021 1.14 0.7 - 1.2 MG/DL Final SODIUM 12/19/2021 139 137 - 145 MMOL/L Final POTASSIUM 12/19/2021 4.4 3.5 - 5.1 MMOL/L Final CHLORIDE 12/19/2021 100 98 - 107 MMOL/L Final Please note: Triglyceride levels of 600mg/dL or higher may positively bias chloride results by approximately 2.1 mmol CALCIUM 12/19/2021 9.2 8.4 - 10.2 MG/DL Final PROTEIN, TOTAL 12/19/2021 7.1 6.3 - 8.2 GM/DL Final Albumin 12/19/2021 4.5 3.5 - 5.0 G/dl Final BILIRUBIN, TOTAL 12/19/2021 0.4 0.2 - 1.3 MG/DL Final AST 12/19/2021 19 17 - 59 IU/L Final ALKALINE PHOSPHATASE 12/19/2021 98 38 - 126 IU/L Final CARBON DIOXIDE (CO2) 12/19/2021 27 22 - 30 MMOL/L Final A/G Ratio 12/19/2021 1.7 1.3 - 2.2 RATIO Final ALT 12/19/2021 11 <50 IU/L Final ESTIMATED GFR, NON AMER 12/19/2021 67 ml/min/1.73sq.m Final ESTIMATED GFR, 12/19/2021 81 ml/min/1.73sq.m Final GFR COMMENT 12/19/2021 Average GFR for 70+ years old = 75. Final Comment: Chronic Kidney disease, GFR = <60. Kidney failure, GFR = <15. The GFR estimate is not adjusted for extreme body surface area or acute process, nor has it been validated for women or ethnic groups other than and . WBC (WHITE BLOOD COUNT) 12/19/2021 8.2 3.6 - 11.0 10*3/uL Final RBC 12/19/2021 5.20 4.0 - 6.1 10*6/uL Final HEMOGLOBIN (HGB) 12/19/2021 14.5 14.0 - 18.0 G/DL Final HEMATOCRIT (HCT) 12/19/2021 41.8 (L) 42.0 - 52.0 % Final MEAN CELL VOLUME 12/19/2021 80.4 80.0 - 100.0 FL Final Mean Cell HGB 12/19/2021 27.8 26.0 - 35.0 PG Final MEAN CELL HGB CONCENTRATION 12/19/2021 34.6 27.0 - 37.0 G/DL Final RBC DISTRIBUTION 12/19/2021 15.2 (H) 11.5 - 14.5 % Final PLATELET COUNT 12/19/2021 234 130.0 - 400.0 10*3/uL Final MEAN PLATELET VOLUME 12/19/2021 6.6 (L) 7.4 - 11.0 FL Final CHOLESTEROL 12/19/2021 97 (L) 120 - 200 MG/DL Final TRIGLYCERIDE 12/19/2021 134 0 - 150 MG/DL Final HDL CHOLESTEROL 12/19/2021 31 26 - 63 MG/DL Final LDL CHOLESTEROL, CALCULATED 12/19/2021 39 MG/DL Final VLDL Cholesterol, Calculated 12/19/2021 27 (H) 5.0 - 25 MG/DL Final TCHOL/HDL RATIO, MANUAL ENTER 12/19/2021 3.13 RATIO Final Comment: RISK TOTAL/HDL RATIO MEN WOMEN 1/2 AVERAGE 3.43 3.27 AVERAGE 4.97 4.44 2X AVERAGE 9.55 7.05 3X AVERAGE 23.99 11.04 CREATININE, MG/DL, URINE 12/19/2021 189.8 MG/DL Final NO NORMAL VALUES ESTABLISHED FOR RANDOM SPECIMENS MICROALBUMIN URINE RANDOM 12/19/2021 43.6 (H) 0 - 16.7 mg/L Final MICROALBUMIN/CREATININE RATIO 12/19/2021 23.0 1.3 - 30.0 mg MALB/g CREAT Final Past History Past medical, surgical, family, and social histories have been reviewed and updated with the patient today and are located elsewhere in the medical record. ROS: Review of Systems Constitutional: Negative for fever and unexpected weight change. HENT: Negative for facial swelling and sore throat. Eyes: Negative for visual disturbance. Respiratory: Negative for cough and shortness of breath. Cardiovascular: Negative for chest pain. Gastrointestinal: Negative for abdominal pain, blood in stool and vomiting. Genitourinary: Negative for dysuria and hematuria. Skin: Negative for rash. Neurological: Negative for seizures and syncope. Hematological: Does not bruise/bleed easily. Psychiatric/Behavioral: Negative for suicidal ideas. OBJECTIVE: Vitals: 01/21/22 1307 BP: 124/64 Pulse: 84 Resp: 18 Temp: 97.6 degrees F (36.4 degrees C) TempSrc: Skin SpO2: 94% Weight: 119.3 kg (263 lb) Height: 1.829 m (6' 0.01 ) BMI Readings from Last 1 Encounters: 01/21/22 35.66 kg/m Wt Readings from Last 3 Encounters: 01/21/22 119.3 kg (263 lb) 12/23/21 116.1 kg (256 lb) 12/10/21 117.5 kg (259 lb) Physical Exam Vitals and nursing note reviewed. Constitutional: Appearance: He is well-developed and well-nourished. He is obese. Cardiovascular: Rate and Rhythm: Normal rate and regular rhythm. Pulmonary: Effort: Pulmonary effort is normal. Breath sounds: Normal breath sounds. Musculoskeletal: Right lower leg: Edema present. Left lower leg: Edema present. Neurological: Mental Status: He is alert. ASSESSMENT / PLAN ICD-10-CM 1. Hypercholesterolemia E78.00 2. Hypertriglyceridemia E78.1 3. RLS (restless legs syndrome) G25.81 4. Preventative health care Z00.00 5. Screening for colon cancer Z12.11 6. Depression, recurrent-moderate F33.1 Problem List Items Addressed This Visit Depression, recurrent-moderate (Chronic) Hypercholesterolemia - Primary (Chronic) Hypertriglyceridemia (Chronic) RLS (restless legs syndrome) (Chronic) Other Visit Diagnoses Preventative health care Screening for colon cancer The plan may be as below under the double downward chevrons in the patient education. Patient was advised to call with any questions or concerns. If symptoms worsen patient was advised to follow up in our office or the Emergency Dept. Benefits, Risks, Contraindications, and Complications of recommended treatments were explained the patient understands and agrees to proceed with plan. Return in about 4 months (around 05/19/2022) for constipation, osteopenia. Mee Moreno MD 01/21/2022 Review of Systems Constitutional: Negative for fever and unexpected weight change. HENT: Negative for facial swelling and sore throat. Eyes: Negative for visual disturbance. Respiratory: Negative for cough and shortness of breath. Cardiovascular: Negative for chest pain. Gastrointestinal: Negative for abdominal pain, blood in stool and vomiting. Genitourinary: Negative for dysuria and hematuria. Skin: Negative for rash. Neurological: Negative for seizures and syncope. Hematological: Does not bruise/bleed easily. Psychiatric/Behavioral: Negative for suicidal ideas. documented in this encounter [facility] 01-21-2022 Instructions Mee Moreno MD - 01/21/2022 1:00 PM EST High cholesterol High triglycerides With an LDL level of 39, and triglycerides of 134, your lipids are well-controlled! We will need to recheck levels for year. CONTINUE Icosapent ethyl/ Vascepa 1 g. Two pills twice a day. rosuvastatin 20 mg nightly Restless Leg syndrome Chronic, moderate, well controlled on your current pramipexole 0.75 mg nightly. Preventative Care 1. You refused the influenza shot again this year. I STRONGLY urge you to reconsider that. Even though you had a bit of a reaction at one point in the past, influenza can and still does kill people. 2. Given the fact that you have had chickenpox in the past, I strongly recommend that you get the two-step Shingrix series to help prevent shingles. While this is not a life or issue for most people, having shingles can be extremely painful. Screening for colon cancer You stated that your 2013 colonoscopy was unremarkable, without polyps. If that is the case and you are not having any cold symptoms such as a change in bowel habits, blood in the stool, or new abdominal pain, you would not need a repeat colonoscopy until 2023 documented in this encounter [facility] 12-23-2021 History of Present illness Narrative Nurse Note: Review of Systems Constitutional: Negative for fatigue and unexpected weight change. Eyes: Negative for visual disturbance. Respiratory: Negative for cough and shortness of breath. Cardiovascular: Negative for chest pain and leg swelling. Gastrointestinal: Positive for constipation. Negative for diarrhea, nausea and vomiting. Endocrine: Positive for polyuria. Negative for polydipsia. Skin: Positive for rash. Neurological: Negative for numbness. Psychiatric/Behavioral: Negative for sleep disturbance. Finish Molder? No Director Of Admissions? 5+ years Nursing Assessment: Physical Exam History of Present Illness Insulin dependent Diabetes- He is here today for follow-up for diabetes. He believes he has had diabetes since approximately 2008. There is a family history of diabetes. He is currently taking metformin 1000 mg twice a day, Novolin N 20 units in the a.m. and 15-20 units in the p.m., Novolin R 15-18 units with meals. Glipizide was discontinued previously as ineffective. He previously had a good response to Bydureon, but the agent is not affordable. He states he feels the best when his blood sugars are between 150-200 mg/dL. A1c = 7.6%, down from 7.8%, down from 8.4%, up from 7.6%, down from 8.1%, up from 7.8%, down from 8.3%. Urine microalbumin creatinine ratio now within normal limits, down from 37, down from 69, GFR = 67. No anemia. He does have an elevated insulin antibody, previous C-peptide = 3.7 with concurrent fasting blood sugar 248 mg/dL. Last visit with ophthalmology was in May 2021, no diabetes retinopathy noted. Now following with local podiatry, Dr. De Dios, he does have chronic peripheral neuropathy. Has met with a subscription agent in the past. He has a history of severe hypoglycemia event requiring assistance. Does have injectable glucagon available at home. Checks his blood sugar with rayna device. Overall scan times adequate though he does note when he leaves the house he does not take rayna reader with him. Still has a lot of stress dealing with his diagnosis of Parkinson's, 's chronic illness and her new memory issues. He has been testing blood sugar 4 times a day, and taking insulin 4 times a day. He has been doing this for the past 90 days. Hyperlipidemia: He is on rosuvastatin 20 mg daily and Vascepa 2 g twice a day. LDL = 39 mg/dL with triglycerides of 134. This is managed by PCP. Hypertension: This is managed by his PCP and cardiology. He is currently taking carvedilol 6.25 mg twice a day, Lasix 20 mg twice a day. Unable to tolerate OLGA inhibitor due to cough. Not currently on ARB therapy. Blood pressure at target today. Review of Systems Nurse Note: Review of Systems Constitutional: Negative for fatigue and unexpected weight change. Eyes: Negative for visual disturbance. Respiratory: Negative for cough and shortness of breath. Cardiovascular: Negative for chest pain and leg swelling. Gastrointestinal: Positive for constipation. Negative for diarrhea, nausea and vomiting. Endocrine: Positive for polyuria. Negative for polydipsia. Skin: Positive for rash. Neurological: Negative for numbness. Psychiatric/Behavioral: Negative for sleep disturbance. Finish Molder? No Director Of Admissions? 5+ years Nursing Assessment: Physical Exam Vitals: Blood pressure 116/68, pulse 92, resp. rate 18, height 1.829 m (6' 0.01 ), weight 116.1 kg (256 lb), SpO2 96 %. Physical Exam Vitals and nursing note reviewed. HENT: Head: Normocephalic. Cardiovascular: Rate and Rhythm: Normal rate and regular rhythm. Heart sounds: Normal heart sounds. Pulmonary: Effort: Pulmonary effort is normal. Breath sounds: Normal breath sounds. Skin: General: Skin is warm and dry. Neurological: Mental Status: He is alert and oriented to person, place, and time. Psychiatric: Mood and Affect: Mood normal. Behavior: Behavior normal. Foot Exam: Bilateral dorsails pedis pulses +2 and equal. Monofilament sensation diminished bilaterally. Skin warm, dry, intact. Neurological Exam Mental Status Alert. Oriented to person, place, and time. Assessment and Plan Insulin-dependent diabetes: We discussed his A1c 7.6%. With his insulin use, comorbid conditions, and history of severe hypoglycemia would not strive for tight glycemic control. He notes he is taking regular insulin 15 units at dinner time even if not eating. We recommended to take regular insulin at meals only. This appears to be the cause of his overnight hypoglycemia. If he takes regular insulin only with meals and still having hypoglycemia we recommended decreasing his NPH down to 15 units at bedtime. We will change him to Rayna 2 device for the use of alarms. He has glucagon at home and knows how to treat for hypoglycemia using 15/15 rule. He has now moved to [place] and is asking for truck shop supervisor closer to his new home, referral placed today. We will plan on seeing him back in 3 months with labs prior if not established with new truck shop supervisor. Hyperlipidemia: Meeting LDL targets, continue statin therapy. This is managed by PCP. Hypertension: This is managed by his PCP. Blood pressure at target today. documented in this encounter [facility] 12-23-2021 Procedure note Associated Ord er(s): [place] CONTINUOUS GLUCOSE MONITORING ANALYSIS I&R CGM data demonstrates time in target range 56%, high 26%, very high 14%, low 4%, very low 0%. GMI = 7.4% CGM data trends reveal evidence of missed boluses which he admits to. Overnight blood sugar tends to run low but he notes he is often taking his Regular insulin in the evening without eating, we recommended to not do this. Also he is taking dinner dose of insulin very late, we discussed insulin timing and to take prior to the meal. [facility] 12-23-2021 Procedure note Associated Ord er(s): [place] CONTINUOUS GLUCOSE MONITORING ANALYSIS I&R CGM data demonstrates time in target range 56%, high 26%, very high 14%, low 4%, very low 0%. GMI = 7.4% CGM data trends reveal evidence of missed boluses which he admits to. Overnight blood sugar tends to run low but he notes he is often taking his Regular insulin in the evening without eating, we recommended to not do this. Also he is taking dinner dose of insulin very late, we discussed insulin timing and to take prior to the meal. documented in this encounter [facility] 12-10-2021 Evaluation + Plan note Associated Problem(s): Hypercholesterolemia You will be due for evaluation. You will be due to have FASTING labs checked. Please get these tests done about 1 week prior to your scheduled follow-up visit. [facility] 12-10-2021 Miscellaneous Notes Associated Problem(s): Hypercholesterolemia You will be due for evaluation. You will be due to have FASTING labs checked. Please get these tests done about 1 week prior to your scheduled follow-up visit. Associated Problem(s): Overactive bladder Chronic You have been following with Dr. Moseley for this condition. I will get in touch with Dr. Moseley regarding your Botox treatments as the last you heard the equipment was down. I advise you DECREASE your fluid intake a couple hours before you go to bed to try to minimize the trips to the bathroom during the night. I have provided a prescription for men's urinary garmets. If these are not covered by your insurance, you may obtain them at [facility] [employer]. Associated Problem(s): CONCHITA (obstructive sleep apnea) Chronic, currently untreated AGAINST OR MANAGER You have obstructive sleep apnea. It is CRITICAL that you use a positive pressure device to aid with sleep until such time as this is otherwise cured because there is a DEFINITIVE 10-year loss of life with untreated sleep apnea. Associated Problem(s): CAD (Coronary Artery Disease) on CT scan You are already established with Dr. Persaud of Cardiology. I recommend that you see a sand mixer as I have done all I can with it. You need to be seeing a specialist for your heart conditions. Associated Problem(s): Osteopenia Noted on DEXA scan. I have provided a prescription for the calcium with vitamin D one pill TWICE a day. Associated Problem(s): Hypertriglyceridemia A refill of icosapent ethyl (Vascepa) was provided. documented in this encounter [facility] 12-10-2021 Evaluation + Plan note Associated Problem(s): Overactive bladder Chronic You have been following with Dr. Moseley for this condition. I will get in touch with Dr. Moseley regarding your Botox treatments as the last you heard the equipment was down. I advise you DECREASE your fluid intake a couple hours before you go to bed to try to minimize the trips to the bathroom during the night. I have provided a prescription for men's urinary garmets. If these are not covered by your insurance, you may obtain them at [employer]. [facility] 12-10-2021 Evaluation + Plan note Associated Problem(s): CONCHITA (obstructive sleep apnea) Chronic, currently untreated AGAINST OR MANAGER You have obstructive sleep apnea. It is CRITICAL that you use a positive pressure device to aid with sleep until such time as this is otherwise cured because there is a DEFINITIVE 10-year loss of life with untreated sleep apnea. [facility] 12-10-2021 Evaluation + Plan note Associated Problem(s): CAD (Coronary Artery Disease) on CT scan You are already established with Dr. Persaud of Cardiology. I recommend that you see a sand mixer as I have done all I can with it. You need to be seeing a specialist for your heart conditions. [facility] 12-10-2021 Evaluation + Plan note Associated Problem(s): Osteopenia Noted on DEXA scan. I have provided a prescription for the calcium with vitamin D one pill TWICE a day. [facility] 12-10-2021 Evaluation + Plan note Associated Problem(s): Hypertriglyceridemia A refill of icosapent ethyl (Vascepa) was provided. [facility] 12-10-2021 History of Present illness Narrative ((((Portions of this note utilized [employer] dictation software, please excuse any typographical or grammatical errors.)))) Chief Complaint: Deepa Abraham is a 71 y.o. male who comes in with the following complaint(s): Chief Complaint Patient presents with Referral Referral for cardiology Medication Refill vascepa Medication Management Discuss Myrbetriq TIME IN : 11:51 AM TIME OUT: 1156--5 minutes TIME IN : 2:53 PM TIME OUT:15:19--26 minutes HPI: This patient presents today his own word for the stated reason of needing a cardiology referral. He has history of aortic valve sclerosis, left atrial enlargement, atrial fibrillation, coronary artery disease, diastolic dysfunction with a previous history of unstable angina. He has had previous appointments with Dr. Litzy Persaud, canceled the, on 02/21/2021, and 07/18/2021, having seen Dr. Persaud on 01/10/2029. Osteopenia Please refer to the office note from 05/27/21. Notes that he has run out calcium and vitamin-D. He was not able to consistently take the mid day dose and so it has only been taking it twice a day Insomnia Was on melatonin, however he states that he has been taking melatonin but gummies at an unknown dose. Overactive bladder urge incontinence Urinary frequency urinary urgency Son and are complaining of severe urinary problems which prevent sleep and his normal care such as for the lymphoma. He is had a TURP and has been on Botox injections. He states that the machinery has been broken for several months. That is consistent with at least 30 Jun 2021 telephone note. He is wanting to know if anything else can be done. Myrbetriq was previously cost prohibitive. Past History Past medical, surgical, family, and social histories have been reviewed and updated with the patient today and are located elsewhere in the medical record. ROS: Review of Systems Constitutional: Negative for fever and unexpected weight change. HENT: Negative for facial swelling and sore throat. Eyes: Negative for visual disturbance. Respiratory: Negative for cough and shortness of breath. Cardiovascular: Negative for chest pain. Gastrointestinal: Negative for abdominal pain, blood in stool and vomiting. Genitourinary: Negative for dysuria and hematuria. Skin: Negative for rash. Neurological: Negative for seizures and syncope. Hematological: Does not bruise/bleed easily. Psychiatric/Behavioral: Negative for suicidal ideas. OBJECTIVE: Vitals: 12/10/21 1426 BP: 122/76 Pulse: 88 Resp: 14 Temp: 97.5 degrees F (36.4 degrees C) TempSrc: Skin SpO2: 97% Weight: 117.5 kg (259 lb) Height: 1.829 m (6' 0.01 ) BMI Readings from Last 1 Encounters: 12/10/21 35.12 kg/m Wt Readings from Last 3 Encounters: 12/10/21 117.5 kg (259 lb) 12/03/21 119.7 kg (264 lb) 11/26/21 119.8 kg (264 lb 3.2 oz) Physical Exam ASSESSMENT / PLAN ICD-10-CM 1. Aortic valve sclerosis I35.8 2. Atrial enlargement, left I51.7 3. Atrial Fibrillation, NOS I48.20 4. CAD (Coronary Artery Disease) on CT scan I25.10 5. Diastolic heart disease-chronic with failure I50.32 6. Hypertriglyceridemia E78.1 7. Osteopenia of neck of left femur M85.852 8. CONCHITA (obstructive sleep apnea) G47.33 9. Urinary urgency R39.15 10. Urinary frequency R35.0 11. Urge incontinence N39.41 12. Overactive bladder N32.81 13. Hypercholesterolemia E78.00 Problem List Items Addressed This Visit Aortic valve sclerosis - Primary (Chronic) Atrial enlargement, left (Chronic) Atrial Fibrillation, NOS (Chronic) CAD (Coronary Artery Disease) on CT scan (Chronic) You are already established with Dr. Persaud of Cardiology. I recommend that you see a sand mixer as I have done all I can with it. You need to be seeing a specialist for your heart conditions. Relevant Medications Icosapent Ethyl (Vascepa) 1 g capsule Diastolic heart disease-chronic with failure (Chronic) Hypercholesterolemia (Chronic) You will be due for evaluation. You will be due to have FASTING labs checked. Please get these tests done about 1 week prior to your scheduled follow-up visit. Relevant Medications Icosapent Ethyl (Vascepa) 1 g capsule Hypertriglyceridemia (Chronic) A refill of icosapent ethyl (Vascepa) was provided. Relevant Medications Icosapent Ethyl (Vascepa) 1 g capsule Osteopenia (Chronic) Noted on DEXA scan. I have provided a prescription for the calcium with vitamin D one pill TWICE a day. Relevant Medications calcium-vitamin D 500-200 MG-UNIT tablet CONCHITA (obstructive sleep apnea) Chronic, currently untreated AGAINST OR MANAGER You have obstructive sleep apnea. It is CRITICAL that you use a positive pressure device to aid with sleep until such time as this is otherwise cured because there is a DEFINITIVE 10-year loss of life with untreated sleep apnea. Overactive bladder Chronic You have been following with Dr. Moseley for this condition. I will get in touch with Dr. Moseley regarding your Botox treatments as the last you heard the equipment was down. I advise you DECREASE your fluid intake a couple hours before you go to bed to try to minimize the trips to the bathroom during the night. I have provided a prescription for men's urinary garmets. If these are not covered by your insurance, you may obtain them at [employer]. Relevant Medications Misc. Devices Misc Urge incontinence Relevant Medications Misc. Devices Misc Urinary frequency Relevant Medications Misc. Devices Misc Urinary urgency Relevant Medications Misc. Devices Misc Patient was advised to call with any questions or concerns. If symptoms worsen patient was advised to follow up in our office or the Emergency Dept. Benefits, Risks, Contraindications, and Complications of recommended treatments were explained the patient understands and agrees to proceed with plan. Return in about 6 weeks (around 01/21/2022) for Cholesterol, triglycerides, restless legs, high-risk medication. Mee Moreno MD 12/10/2021 Review of Systems Constitutional: Negative for fever and unexpected weight change. HENT: Negative for facial swelling and sore throat. Eyes: Negative for visual disturbance. Respiratory: Negative for cough and shortness of breath. Cardiovascular: Negative for chest pain. Gastrointestinal: Negative for abdominal pain, blood in stool and vomiting. Genitourinary: Negative for dysuria and hematuria. Skin: Negative for rash. Neurological: Negative for seizures and syncope. Hematological: Does not bruise/bleed easily. Psychiatric/Behavioral: Negative for suicidal ideas. documented in this encounter [facility] 12-10-2021 Instructions Mee Moreno MD - 12/10/2021 2:30 PM EDT Problem List Items Addressed This Visit Aortic valve sclerosis - Primary (Chronic) Atrial enlargement, left (Chronic) Atrial Fibrillation, NOS (Chronic) CAD (Coronary Artery Disease) on CT scan (Chronic) You are already established with Dr. Persaud of Cardiology. I recommend that you see a sand mixer as I have done all I can with it. You need to be seeing a specialist for your heart conditions. Relevant Medications Icosapent Ethyl (Vascepa) 1 g capsule Diastolic heart disease-chronic with failure (Chronic) Hypercholesterolemia (Chronic) You will be due for evaluation. You will be due to have FASTING labs checked. Please get these tests done about 1 week prior to your scheduled follow-up visit. Relevant Medications Icosapent Ethyl (Vascepa) 1 g capsule Hypertriglyceridemia (Chronic) A refill of icosapent ethyl (Vascepa) was provided. Relevant Medications Icosapent Ethyl (Vascepa) 1 g capsule Osteopenia (Chronic) Noted on DEXA scan. I have provided a prescription for the calcium with vitamin D one pill TWICE a day. Relevant Medications calcium-vitamin D 500-200 MG-UNIT tablet CONCHITA (obstructive sleep apnea) Chronic, currently untreated AGAINST OR MANAGER You have obstructive sleep apnea. It is CRITICAL that you use a positive pressure device to aid with sleep until such time as this is otherwise cured because there is a DEFINITIVE 10-year loss of life with untreated sleep apnea. Overactive bladder Chronic You have been following with Dr. Moseley for this condition. I will get in touch with Dr. Moseley regarding your Botox treatments as the last you heard the equipment was down. I advise you DECREASE your fluid intake a couple hours before you go to bed to try to minimize the trips to the bathroom during the night. I have provided a prescription for men's urinary garmets. If these are not covered by your insurance, you may obtain them at [employer]. Relevant Medications Misc. Devices Misc Urge incontinence Relevant Medications Misc. Devices Misc Urinary frequency Relevant Medications Misc. Devices Misc Urinary urgency Relevant Medications Misc. Devices Misc +++++++++++++++++++++++++++++ +++++++++++++++++++++++++++++ +++++++++++++++++++++++++++++ Patient Active Problem List Diagnosis Obesity Allergic rhinitis Type 1 diabetes mellitus with other specified complication Hypercholesterolemia RLS (restless legs syndrome) Vitamin D deficiency Periodic limb movement disorder Diabetic Polyneuropathy Pes planus Hypertension, essential Other motor neuron disease Hypersomnia BPH (benign prostatic hyperplasia) Hammer toe Cervical radiculopathy Chronic neck pain Impingement syndrome of left shoulder Depression, recurrent-moderate Edema, localized to the legs Orthopnea Wheezing Shortness of breath Venous stasis ulcer limited to breakdown of skin without varicose veins Bloating Hypertensive heart disease without heart failure Atrial enlargement, left Aortic valve sclerosis Pulmonary hypertension Pericardial effusion Ptosis, paralytic of bilateral eyelids Venous insufficiency Restrictive lung disease Neuropathic pain Osteoarthritis of left knee, primarily Fracture shaft of right FIBULA, traumatic, Closed nondisplaced transverse Osteoarthritis of right knee, primary-severe Recurrent falls Unstable angina Atrial Fibrillation, NOS Abnormal cardiovascular function Benign prostatic hyperplasia with urinary obstruction Urge incontinence Phimosis CONCHITA (obstructive sleep apnea) Reactive airway disease without complication Diastolic heart disease-chronic with failure CAD (Coronary Artery Disease) on CT scan CANCER-Adenocarcinoma of prostate, stage 1 Metabolic encephalopathy Hypertriglyceridemia S/P TKR (total knee replacement), right Diabetic polyneuropathy associated with type 2 diabetes mellitus Obesity (BMI 35-39.9) Osteoarthritis Constipation, chronic-idiopathic Parkinson's disease Dermatophytosis of nail Osteopenia Overactive bladder Urinary urgency Urinary frequency documented in this encounter [facility] 12-03-2021 History of Present illness Narrative Review of Systems A complete review of systems are negative except those consistent with HPI No fevers, chills or sweats No cough, chest pain No dysphagia, odynophagia No abdominal pain, nausea, vomiting, diarrhea No dysuria, frequency, hematuria No headache, dizziness, focal neurologic complaints No ear pain No sinus pain No rash No weight loss No joint or muscular pain Recent travel history? No HPI Deepa Abraham 71 y.o. male presents today for No chief complaint on file. Patient patient with a history of Parkinson's, HTN, heart disease, HLD and foot fungal infection. He was referred to ID clinic on 05/21/21. History of right foot fracture in a boot. History of fungal nail infection treated by Dr. De Dios 04/2021 with lamisel per notes but patient/ don't recall ever receiving this. Also history of Right knee synovial tap 05/07/21 with no growth on cultures. He is allergic to sulfa and has a contraindication to FQs based on possible exacerbation of neurologic condition. Patient was referred to ID clinic for RLE cellulitis. He reports having cellulitis several times a year in right leg. Has history of Right TKA. History of foot fracture but no hardware in this area. Patient had initial infectious disease consult visit on 05/21/21. Follow-up visit 06/11/21, he believes he has had a reaction to penicillin and stopped this a few days ago due to rash on lower extremities. Patient continues to have itching which he uses hydrocortisone cream but discussed with him trying to limit this as it will then his skin. Patient denies any significant pain in knee. Complains that the brace he was given for his foot fracture is causing pain in his leg. No fevers chills or sweats. No urinary or abdominal complaints. He has f/up on 07/23, Patient feels his legs feel well. No infections or cellulitis reported. Patient did end up finding a good pair of compression stockings that he wears approximate from 9 AM until bedtime. This is a loud his legs to feel better and he is using his cane less often to ambulate. Still on antifungals for ongoing onychomycosis. Infectious disease clinic appointment 09/24, but he continues to have lower extremity swelling. Is using compression stockings but not continuously. Does note some open wounds on right lower extremity but denies any cellulitis. No fevers or chills. No recent antibiotic use. No dysuria. Patient did receive injection of steroids in left hand with improvement of the symptoms by orthopedics. Follow-up 12/03, patient states that he intermittently gets redness and purple discoloration of his legs. No recent antibiotic use. Patient did have dog on lab and when he jumped off scratches lower leg 2 days ago. No signs of infection. No fevers or chills. Patient and state they are unable to use lymphatic compressions or suit as advised by vascular surgeon. Patient with history of occupational and physical therapy sessions however he is still having difficulty caring for his legs and wounds leaving to do so. ROS No notes on file HISTORY/ALLERGIES/MEDS Allergies Allergen Reactions Hydroxyzine Confusion Lipitor [Atorvastatin] Myalgia Intolerable muscle pain Per prior PCP, Dr. Abdias Tyler, records and CoQ10 failure Bactrim [Sulfamethoxazole-Trimethoprim] Hives Coq10 [Coenzyme Q10] Dreams, Abnormal Nightmares Lisinopril Cough Per prior PCP, Dr. Abdias Tyler, records Pravastatin Myalgia ( and VALLADARES ) Per prior PCP, Dr. Abdias Tyler, records Ranitidine Nausea Only Per prior PCP, Dr. Abdias Tyler, records Bacitracin Contact Dermatitis, Itchy Throat, Rash and Runny Nose Carvedilol Dyspepsia Levaquin [Levofloxacin] Fluoroquinolones has been added 2/2 documented diagnosis of Myasthenia Gravis. IF MG is not a confirmed by testing diagnosis, deletion of this allergy may be considered. Myasthenia Gravis is documented in patient chart by PCP but patient and state Neurology has not informed them that this is a confirmed diagnosis. Nsaids CAD with unstable angina Penicillins Rash Past Medical History: Diagnosis Date TIFF (acute kidney injury) 09/24/2019 DR RAMAN STATES EVERYTHING IS NOW NORMAL Allergic rhinitis Arthritis joints & legs At risk for sleep apnea 04/08/2019 STOPBANG 08/07 ( snores loudly, BP med, BMI > 35, age > 50, Neck size > 16in, male) Atrial enlargement, left 01/26/2018 Mild on echocardiogram BPH (benign prostatic hyperplasia) CAD (Coronary Artery Disease) on CT scan 07/15/2019 Cardiac angina Cataract Depression Essential hypertension, benign H/O colonoscopy 08/24/2013 Hammer toe History of urinary urgency Hypercholesterolemia 03/02/1994 Hyperlipidemia Hyperlipoproteinemia 03/02/1994 LDL Hypersomnia Influenza vaccine refused 11/22/2015 Muscle weakness Obesity Orthopnea 01/07/2018 CONCHITA (obstructive sleep apnea) 06/07/[address] Evgeny Valdez NO significant sleep-related breathing disorder after sleep study 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 Avalos Type II diabetes mellitus, uncontrolled Vaccination refused by patient 11/22/2015 Zoster refused Vitamin D deficiency 03/02/2013 Past Surgical History: Procedure Laterality Date CYSTOURETHOSCOPY W/ INJECTION FOR CHEMODENERVATION BLADDER N/A 01/15/2021 Laterality: N/A; Surgeon: Terrance Moseley MD; Location: [facility] ARTHROTOMY KNEE Right 05/22/2020 Laterality: Right; Surgeon: Adele Matthews MD; Location: [facility] OR ARTHROPLASTY KNEE TOTAL Right 04/16/2020 Laterality: Right; Surgeon: Adele Matthews MD; Location: [facility] OR SLITTING PENIS PREPUCE N/A 04/26/2019 Laterality: N/A; Surgeon: Terrance Moseley MD; Location: [facility] OR PROSTATECTOMY TRANSURETHRAL ELECTROSURGICAL (TURP) N/A 04/26/2019 Laterality: N/A; Surgeon: Terrance Moseley MD; Location: [facility] OR CYSTOURETHROSCOPY W/ URETERAL CATHETERIZATION Bilateral 04/26/2019 Laterality: Bilateral; Surgeon: Terrance Moseley MD; Location: [facility] OR HEART CATHETERIZATION 2019 Dr. Persaud EYE SURGERY Bilateral 01/2018 eyelids raised EXTRACTION EXTRACAPSULAR CATARACT W/ IMPLANT (ECCE IOL) Right 11/10/2016 Laterality: Right; Surgeon: Yimi Maki MD; Location: [facility] OR EXTRACTION EXTRACAPSULAR CATARACT W/ IMPLANT (ECCE IOL) Left 10/27/2016 Laterality: Left; Surgeon: Yimi Maki MD; Location: [facility] OR COLONOSCOPY DIAGNOSTIC 08/24/2013 HERNIA REPAIR 1996 CIRCUMCISION N/A 03 Apr 2019 Social History Socioeconomic History Marital status: Spouse name: Filomena Merchant Number of children: 2 Years of education: Not on file Highest education level: Not on file Occupational History Employer: RETIRED Tobacco Use Smoking status: Never Smoker Smokeless tobacco: Never Used Vaping Use Vaping Use: Never used Substance and Sexual Activity Alcohol use: Yes Comment: infrequently Drug use: No Sexual activity: Not on file Other Topics Concern Not on file Social History Narrative Not on file Social Determinants of Health Financial Resource Strain: Not on file Food Insecurity: Not on file Transportation Needs: Not on file Physical Activity: Not on file Stress: Not on file Social Connections: Not on file Intimate Partner Violence: Not on file Housing Stability: Not on file Family History Problem Relation Age of Onset Hypertension Father Lipid Disorder Father high cholesterol Lung Cancer Father Diabetes Sister DM type 2 Current Outpatient Medications: betamethasone valerate 0.1 % Cream, Apply 1 Application topically 2 times daily as needed., Disp: , Rfl: Blood Glucose Monitoring Suppl (Blood Glucose Monitor System) w/Device Kit, 1 Each by Unknown route As directed., Disp: 1 kit, Rfl: 0 Calcium Polycarbophil (FIBER-CAPS PO), Take by mouth 2 times daily. ( increased 12/26/20), Disp: , Rfl: calcium-vitamin D 500-200 MG-UNIT tablet, Take 1 tablet by mouth 3 times daily. (Patient taking differently: Take 1 tablet by mouth 2 times daily.), Disp: 90 tablet, Rfl: 11 carbidopa-levodopa 25-100 MG per tablet, Take 1.5 tablets by mouth 3 times daily., Disp: 135 tablet, Rfl: 11 carveDILOL 6.25 MG tablet, Take 1 tablet by mouth 2 times daily with meals., Disp: 60 tablet, Rfl: 0 clotrimazole 1 % Cream, Apply 1 Application topically 2 times daily. Apply between toes to rash once or twice daily, Disp: 60 g, Rfl: 1 Continuous Blood Gluc Ship Purser (FREESTYLE RAYNA 14 DAY READER) Device, 1 Device by Unknown route 4 times daily. To be used with Rayna Sensors, Disp: 1 Device, Rfl: 0 Continuous Blood Gluc Sensor (FreeStyle Rayna 14 Day Sensor) Misc, 1 Each by Unknown route every 14 days. apply to upper arm every 14 days to test blood sugars 4x daily, Disp: 2 Each, Rfl: 4 DISABILITY PLACARD, Disability placard end date 05/30/2024, Disp: 1 Each, Rfl: 0 fluconazole 150 MG tablet, Take 1 tablet by mouth once a week., Disp: 12 tablet, Rfl: 1 furOSEmide 20 MG tablet, Take 1 tablet by mouth daily. Okay to take an extra 20 mg daily for weight gain or swelling., Disp: 120 tablet, Rfl: 3 Glucagon, rDNA, (Glucagon Emergency) 1 MG Kit, To use as directed for severe hypoglycemia, Disp: 1 kit, Rfl: 11 GLUCOSE MONITOR LANCETS PRESCRIPTION, Test blood sugar 4 times per day. Is on insulin therapy., Disp: 120 Container, Rfl: 11 GLUCOSE TEST STRIPS PRESCRIPTION, Test blood sugar 4 times per day. Is on insulin therapy., Disp: 120 Container, Rfl: 11 Icosapent Ethyl (Vascepa) 1 g capsule, Take 2 capsules by mouth 2 times daily. (for high triglycerides), Disp: 360 capsule, Rfl: 3 insulin NPH (NovoLIN N) 100 UNIT/ML injection, 20 units in the morning and at 15 units bedtime, Disp: 1 vial, Rfl: 3 insulin regular (NOVOLIN R) 1 unit/0.01 ml vial, Inject 15 Units under the skin 3 times daily (take before meals)., Disp: 2 vial, Rfl: 2 Insulin Syringe-Needle U-100 (INSULIN SYRINGE .3CC/31GX5/16 ) 31G X 5/16 0.3 ML Misc, To be used with insulin 4 times a day. E11.42, Disp: 150 Each, Rfl: 4 Loratadine 10 MG Tab Dispersible, Take 1 tablet by mouth as needed., Disp: 90 tablet, Rfl: 3 Magnesium 250 MG tablet, Take 250 mg by mouth daily., Disp: , Rfl: Melatonin 5 MG Chew Tab, Chew 1 tablet at bedtime., Disp: 30 tablet, Rfl: 1 metFORMIN 500 MG tablet, Take 2 tablets by mouth 2 times daily with meals., Disp: 360 tablet, Rfl: 1 nitroGLYCERIN 0.4 MG tablet SL, Place 1 tablet under tongue every 5 minutes as needed for Chest pain. max = 3 doses. If CP persists after 3rd dose, call 911, Disp: 25 tablet, Rfl: 3 polyethylene glycol 17 GM/SCOOP Powder powder, Take 17 g by mouth daily as needed for Constipation. ( altered 12/26/20), Disp: , Rfl: Pramipexole Dihydrochloride 0.75 MG tablet, Take 1 tablet by mouth every evening. (for restless leg syndrome), Disp: 90 tablet, Rfl: 3 rosuvastatin 20 MG tablet, Take 1 tablet by mouth at bedtime. For high cholesterol, Disp: 90 tablet, Rfl: 3 venlafaxine 75 MG tablet, Take 1 tablet by mouth 2 times daily., Disp: 180 tablet, Rfl: 3 Vitamin D3 1000 units Tab, Take 1,000 Units by mouth daily. , Disp: , Rfl: EXAM Smoking Status Never Smoker Physical Exam Vitals and nursing note reviewed. Constitutional: General: He is not in acute distress. Appearance: He is not toxic-appearing. HENT: Head: Normocephalic and atraumatic. Mouth/Throat: Pharynx: Oropharynx is clear. No oropharyngeal exudate. Eyes: Extraocular Movements: Extraocular movements intact. Conjunctiva/sclera: Conjunctivae normal. Pupils: Pupils are equal, round, and reactive to light. Cardiovascular: Rate and Rhythm: Normal rate. Pulses: Normal pulses. Heart sounds: No murmur heard. Pulmonary: Effort: No respiratory distress. Breath sounds: Normal breath sounds. No rhonchi or rales. Abdominal: General: Bowel sounds are normal. There is no distension. Palpations: Abdomen is soft. There is no mass. Tenderness: There is no abdominal tenderness. There is no guarding. Genitourinary: Comments: No CVA or suprapubic tenderness Musculoskeletal: General: No swelling or tenderness. Normal range of motion. Cervical back: Normal range of motion. No rigidity. Right lower leg: Edema present. Left lower leg: Edema present. Comments: Right prosthetic knee with well-healed incision and no evidence of infection Skin: General: Skin is warm. Findings: No rash. Comments: Great toe onychomycosis with improvement But still distal involvement Chronic vascular changes of lower extremity with mild +1 pitting edema with reactive erythema. No cellulitis noted. Dog scratch wounds to right leg but no evidence of infection. These will be re-bandage. Positive coolness to touch in vascular changes right greater than left leg with poor circulation/vascular supply noted. No necrosis. Neurological: Mental Status: He is alert and oriented to person, place, and time. Comments: Parkinsonian symptoms, weak appearing, using wheelchair Psychiatric: Mood and Affect: Mood normal. Behavior: Behavior normal. Thought Content: Thought content normal. LABS CBC Lab Results Component Value Date WBC 7.6 05/27/2021 HGB 14.8 05/27/2021 HCT 43.0 05/27/2021 PLATELET 223 05/27/2021 MCV 79.4 (L) 05/27/2021 EDIF Lab Results Component Value Date RBCDISTRIBU 14.7 (H) 05/27/2021 EOSINOPHILS 3.1 10/14/2020 EOSINOPHILS 0.20 10/14/2020 BASOPHILS 0.4 10/14/2020 BASOPHILS 0.0 10/14/2020 LYMPHOCYTABS 0.90 (L) 10/14/2020 PLATELET 223 05/27/2021 MPV 6.7 (L) 05/27/2021 EDIF Lab Results Component Value Date RBCDISTRIBU 14.7 (H) 05/27/2021 EOSINOPHILS 3.1 10/14/2020 EOSINOPHILS 0.20 10/14/2020 BASOPHILS 0.4 10/14/2020 BASOPHILS 0.0 10/14/2020 LYMPHOCYTABS 0.90 (L) 10/14/2020 PLATELET 223 05/27/2021 MPV 6.7 (L) 05/27/2021 ESR Lab Results Component Value Date RBCDISTRIBU 14.7 (H) 05/27/2021 EOSINOPHILS 3.1 10/14/2020 EOSINOPHILS 0.20 10/14/2020 BASOPHILS 0.4 10/14/2020 BASOPHILS 0.0 10/14/2020 LYMPHOCYTABS 0.90 (L) 10/14/2020 PLATELET 223 05/27/2021 MPV 6.7 (L) 05/27/2021 Lab Results Component Value Date SODIUM 136 (L) 05/27/2021 POTASSIUM 4.4 05/27/2021 CHLORIDE 98 05/27/2021 CO2 29 05/27/2021 BUN 24 (H) 05/27/2021 CREATSERUM 1.06 05/27/2021 GLUCOSE neg 08/26/2021 Lab Results Component Value Date CRP 9.1 05/27/2021 Lab Results Component Value Date RESULTCULT NO GROWTH 21 DAYS 05/07/2021 . Lab Results Component Value Date GLUCOSE neg 08/26/2021 . Lab Results Component Value Date CALCIUM 9.5 05/27/2021 Lab Results Component Value Date ALBUMIN 4.7 05/27/2021 SIUM 05/27/2021 CHLORIDE 05/27/2021 CO2 03/ Lab Results Component Value Date BILITOTAL 0.7 05/27/2021 Lab Results Component Value Date ALT 8 05/27/2021 AST 18 05/27/2021 ALKPHOS 109 05/27/2021 BILITOTAL 0.7 05/27/2021 BILIDIRECT 0.2 10/14/2020 No orders to display IMAGING No results found. Diagnosis/Plan: There are no diagnoses linked to this encounter. Hx of RLE cellulitis -status post prior antibiotics on 05/21 given no cellulitis on exam on 05/21 visit -Given history of recurrent infection and ongoing risk factors of infection (venous insufficiency, fungal toenail infection) Was given prophylactic penicillin 500 mg po bid, the patient states he developed a papular rash of the lower extremities with itching due to that medication that resolved once he stopped the medication approximately 06/08; remains off of prophylactic antibiotics at this time -no evidence of infection at this time -Continue compression stockings; Per chart review Dr. Persaud regarding lymphedema compressions; However patient and state that they do not want to pursue this as it is very difficult to get on and off. -Excellent skin care -Avoid trauma to the lower extremities including animal exposures which can lead to severe infection, recommend wearing long pants -No cellulitis on today's exam -Local wound care with mupirocin 2 open wounds as well as dressings Onychomycosis and tinea pedis -Nail trimming -Keep feet dry -continue topical clotrimazole between toes as needed -continue Fluconazole weekly, refilled Right TKA -history of Synovial tap with negative cultures; 209 white cells and over 33,000 red cells with traumatic tap -CRP 9.1 and normal on 05/19 -No clear signs of PJI on today's exam Healthcare maintenance -Did receive covid vaccine per his report. Last dose on 03/02/21 and discussed with him the fourth vaccine dose 4 months after his last booster ; this was discussed with patient today And he was reminded to follow-up with his local pharmacy. -history of pneumococcal conjugate and polysaccharide vaccine -History of tetanus shot in 2016 -History of prior hepatitis B vaccination - recommend influenza and high-dose faxing the patient deferred Diabetes -Elevated A1c to 7.8 on 05/27 ; follow-up A1c ordered and pending - recommend excellent to glucose control Overactive bladder -Patient seeing urology who is considering Botox injections if possible -Recent urinalysis was negative for infection 08/26 Parkinson's -Patient see neurology -Patient has already had OT/P, encouraged to take discuss with her primary neurologist for other ways to get him more mobile RTC in 2 months, sooner if any new infectious disease concerns. 23 minutes of care Please note Portions of this note utilized [employer] dictation software, please excuse any typographical or grammatical errors. documented in this encounter [facility] 11-26-2021 History of Present illness Narrative [facility] NOTE Chief Complaint Patient presents with Follow-up [facility] Parkinson's disease History of Present Illness: Deepa Abraham is a pleasant 71 y.o. male presents in follow up for Parkinson disease and RLS. He is taking carb/levo 25/100, 1 tab tid and pramipexole 0.75 mg at bedtime for RLS. He sometimes forgets to take his midday dose of carbidopa/levodopa. He has noticed problems with balance, especially with bending down. His is concerned because he sleeps more during the day. He sleeps from 3 am to 9 am. He sleeps in an easy chair. He is gettig a new bed soon. Past Medical History: Diagnosis Date TIFF (acute kidney injury) 09/24/2019 DR RAMAN STATES EVERYTHING IS NOW NORMAL Allergic rhinitis Arthritis joints & legs At risk for sleep apnea 04/08/2019 STOPBANG 08/07 ( snores loudly, BP med, BMI > 35, age > 50, Neck size > 16in, male) Atrial enlargement, left 01/26/2018 Mild on echocardiogram BPH (benign prostatic hyperplasia) CAD (Coronary Artery Disease) on CT scan 07/15/2019 Cardiac angina Cataract Depression Essential hypertension, benign H/O colonoscopy 08/24/2013 Hammer toe History of urinary urgency Hypercholesterolemia 03/02/1994 Hyperlipidemia Hyperlipoproteinemia 03/02/1994 LDL Hypersomnia Influenza vaccine refused 11/22/2015 Muscle weakness Obesity Orthopnea 01/07/2018 CONCHITA (obstructive sleep apnea) 06/07/[address] Evgeny Valdez NO significant sleep-related breathing disorder after sleep study 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 Avalos Type II diabetes mellitus, uncontrolled Vaccination refused by patient 11/22/2015 Zoster refused Vitamin D deficiency 03/02/2013 Past Surgical History: Procedure Laterality Date CYSTOURETHOSCOPY W/ INJECTION FOR CHEMODENERVATION BLADDER N/A 01/15/2021 Laterality: N/A; Surgeon: Terrance Moseley MD; [facility] ARTHROTOMY KNEE Right 05/22/2020 Laterality: Right; Surgeon: Adele Matthews MD; Location: [facility] ARTHROPLASTY KNEE TOTAL Right 04/16/2020 Laterality: Right; Surgeon: Adele Matthews MD; Location: [facility] OR SLITTING PENIS PREPUCE N/A 04/26/2019 Laterality: N/A; Surgeon: Terrance Moseley MD; Location: [facility] OR PROSTATECTOMY TRANSURETHRAL ELECTROSURGICAL (TURP) N/A 04/26/2019 Laterality: N/A; Surgeon: Terrance Moseley MD; Location: [facility] CYSTOURETHROSCOPY W/ URETERAL CATHETERIZATION Bilateral 04/26/2019 Laterality: Bilateral; Surgeon: Terrance Moseley MD; Location: [facility] OR HEART CATHETERIZATION 2019 Dr. Persaud EYE SURGERY Bilateral 01/2018 eyelids raised EXTRACTION EXTRACAPSULAR CATARACT W/ IMPLANT (ECCE IOL) Right 11/10/2016 Laterality: Right; Surgeon: Yimi Maki MD; Location: [facility] OR EXTRACTION EXTRACAPSULAR CATARACT W/ IMPLANT (ECCE IOL) Left 10/27/2016 Laterality: Left; Surgeon: Yimi Maki MD; Location: [facility] OR COLONOSCOPY DIAGNOSTIC 08/24/2013 HERNIA REPAIR 1996 CIRCUMCISION N/A 03 Apr 2019 Family History Problem Relation Age of Onset Hypertension Father Lipid Disorder Father high cholesterol Lung Cancer Father Diabetes Sister DM type 2 Social History Tobacco Use Smoking status: Never Smoker Smokeless tobacco: Never Used Vaping Use Vaping Use: Never used Substance Use Topics Alcohol use: Yes Comment: infrequently Drug use: No Current Outpatient Medications Medication Sig betamethasone valerate 0.1 % Cream Apply 1 Application topically 2 times daily as needed. Blood Glucose Monitoring Suppl (Blood Glucose Monitor System) w/Device Kit 1 Each by Unknown route As directed. Calcium Polycarbophil (FIBER-CAPS PO) Take by mouth 2 times daily. ( increased 12/26/20) calcium-vitamin D 500-200 MG-UNIT tablet Take 1 tablet by mouth 3 times daily. (Patient taking differently: Take 1 tablet by mouth 2 times daily.) carbidopa-levodopa 25-100 MG per tablet Take 1.5 tablets by mouth 3 times daily. carveDILOL 6.25 MG tablet Take 1 tablet by mouth 2 times daily with meals. clotrimazole 1 % Cream Apply 1 Application topically 2 times daily. Apply between toes to rash once or twice daily Continuous Blood Gluc Ship Purser (FREESTYLE RAYNA 14 DAY READER) Device 1 Device by Unknown route 4 times daily. To be used with Rayna Sensors Continuous Blood Gluc Sensor (FreeStyle Rayna 14 Day Sensor) Misc 1 Each by Unknown route every 14 days. apply to upper arm every 14 days to test blood sugars 4x daily DISABILITY PLACARD Disability placard end date 05/30/2024 fluconazole 150 MG tablet Take 1 tablet by mouth once a week. furOSEmide 20 MG tablet Take 1 tablet by mouth daily. Okay to take an extra 20 mg daily for weight gain or swelling. Glucagon, rDNA, (Glucagon Emergency) 1 MG Kit To use as directed for severe hypoglycemia GLUCOSE MONITOR LANCETS PRESCRIPTION Test blood sugar 4 times per day. Is on insulin therapy. GLUCOSE TEST STRIPS PRESCRIPTION Test blood sugar 4 times per day. Is on insulin therapy. Icosapent Ethyl (Vascepa) 1 g capsule Take 2 capsules by mouth 2 times daily. (for high triglycerides) insulin NPH (NovoLIN N) 100 UNIT/ML injection 20 units in the morning and at 15 units bedtime insulin regular (NOVOLIN R) 1 unit/0.01 ml vial Inject 15 Units under the skin 3 times daily (take before meals). Insulin Syringe-Needle U-100 (INSULIN SYRINGE .3CC/31GX5/16 ) 31G X 5/16 0.3 ML Misc To be used with insulin 4 times a day. E11.42 Loratadine 10 MG Tab Dispersible Take 1 tablet by mouth as needed. Magnesium 250 MG tablet Take 250 mg by mouth daily. Melatonin 5 MG Chew Tab Chew 1 tablet at bedtime. metFORMIN 500 MG tablet Take 2 tablets by mouth 2 times daily with meals. nitroGLYCERIN 0.[address] 1 tablet under tongue every 5 minutes as needed for Chest pain. max = 3 doses. If CP persists after 3rd dose, call 911 polyethylene glycol 17 GM/SCOOP Powder powder Take 17 g by mouth daily as needed for Constipation. ( altered 12/26/20) Pramipexole Dihydrochloride 0.75 MG tablet Take 1 tablet by mouth every evening. (for restless leg syndrome) rosuvastatin 20 MG tablet Take 1 tablet by mouth at bedtime. For high cholesterol venlafaxine 75 MG tablet Take 1 tablet by mouth 2 times daily. Vitamin D3 1000 units Tab Take 1,000 Units by mouth daily. Allergies Allergen Reactions Hydroxyzine Confusion Lipitor [Atorvastatin] Myalgia Intolerable muscle pain Per prior PCP, Dr. Abdias Tyler, records and CoQ10 failure Bactrim [Sulfamethoxazole-Trimethoprim] Hives Coq10 [Coenzyme Q10] Dreams, Abnormal Nightmares Lisinopril Cough Per prior PCP, Dr. Abdias Tyler, records Pravastatin Myalgia ( and VALLADARES ) Per prior PCP, Dr. Abdias Tyler, records Ranitidine Nausea Only Per prior PCP, Dr. Abdias Tyler, records Bacitracin Contact Dermatitis, Itchy Throat, Rash and Runny Nose Carvedilol Dyspepsia Levaquin [Levofloxacin] Fluoroquinolones has been added 2/2 documented diagnosis of Myasthenia Gravis. IF MG is not a confirmed by testing diagnosis, deletion of this allergy may be considered. Myasthenia Gravis is documented in patient chart by PCP but patient and state Neurology has not informed them that this is a confirmed diagnosis. Nsaids CAD with unstable angina Penicillins Rash Physical Exam: BP 148/88 (BP Location: Left arm, BP Position: Sitting) Pulse 75 Ht 1.829 m (6') Wt 119.8 kg (264 lb 3.2 oz) SpO2 95% BMI 35.83 kg/m Smoking Status Never Smoker He took his last dose of levodopa 2 hours before the exam. Awake and alert. He has a masked face with reduced blinking. Voice is soft. EOM are full in all directions. Pursuit is choppy to the right, smooth to the left. Saccades are hypometric. There are no square wave jerks. Strength is normal in the upper and lower extremities. Finger tapping, rapid alternating movements, toe tapping and heel striking are bradykinetic, slightly worse on the right. Tone is rigid on the right side. There is no arm swing. Assessment and Plan: Deepa Abraham is a pleasant 71 y.o. male who presents in follow up for Parkinson disease. He is experiencing increased off-time during the day. We agreed to increase his dose of carbidopa/levodopa 25/100 to 1.5 tablet 3 times daily. Deepa was seen today for follow-up. Diagnoses and all orders for this visit: Parkinson's disease Parkinsonism, unspecified Parkinsonism type - carbidopa-levodopa 25-100 MG per tablet; Take 1.5 tablets by mouth 3 times daily. Bella Coleman MD 11/26/2021 documented in this encounter [facility] 11-26-2021 Instructions Bella Coleman MD - 11/26/2021 10:30 AM EDT Please increase your carbidopa/levodopa to [id number] tablets 3 times daily. documented in this encounter [facility] 09-24-2021 History of Present illness Narrative Review of Systems A complete review of systems are negative except those consistent with HPI No fevers, chills or sweats No cough, chest pain No dysphagia, odynophagia No abdominal pain, nausea, vomiting, diarrhea No dysuria, frequency, hematuria No headache, dizziness, focal neurologic complaints No ear pain No sinus pain No rash No weight loss No joint or muscular pain Recent travel history? No HPI Deepa Abraham 71 y.o. male presents today for No chief complaint on file. Patient patient with a history of Parkinson's, HTN, heart disease, HLD and foot fungal infection. He was referred to ID clinic on 05/21/21. History of right foot fracture in a boot. History of fungal nail infection treated by Dr. De Dios 04/2021 with lamisel per notes but patient/ don't recall ever receiving this. Also history of Right knee synovial tap 05/07/21 with no growth on cultures. He is allergic to sulfa and has a contraindication to FQs based on possible exacerbation of neurologic condition. Patient was referred to ID clinic for RLE cellulitis. He reports having cellulitis several times a year in right leg. Has history of Right TKA. History of foot fracture but no hardware in this area. Patient had initial Infectious disease consult visit on 05/21/21. Follow-up visit 06/11/21, he believes he has had a reaction to penicillin and stopped this a few days ago due to rash on lower extremities. Patient continues to have itching which he uses hydrocortisone cream but discussed with him trying to limit this as it will then his skin. Patient denies any significant pain in knee. Complains that the brace he was given for his foot fracture is causing pain in his leg. No fevers chills or sweats. No urinary or abdominal complaints. He has f/up on 07/23, Patient feels his legs feel well. No infections or cellulitis reported. Patient did end up finding a good pair of compression stockings that he wears approximate from 9 AM until bedtime. This is a loud his legs to feel better and he is using his cane less often to ambulate. Still on antifungals for ongoing onychomycosis. Infectious disease clinic appointment 09/24, but she continues to have lower extremity swelling. Is using compression stockings but not continuously. Does note some open wounds on right lower extremity but denies any cellulitis. No fevers or chills. No recent antibiotic use. No dysuria. Patient did receive injection of steroids in left hand with improvement of the symptoms by orthopedics ROS No notes on file HISTORY/ALLERGIES/MEDS Allergies Allergen Reactions Hydroxyzine Confusion Lipitor [Atorvastatin] Myalgia Intolerable muscle pain Per prior PCP, Dr. Abdias Tyler, records and CoQ10 failure Bactrim [Sulfamethoxazole-Trimethoprim] Hives Coq10 [Coenzyme Q10] Dreams, Abnormal Nightmares Lisinopril Cough Per prior PCP, Dr. Abdias Tyler, records Pravastatin Myalgia ( and VALLADARES ) Per prior PCP, Dr. Abdias Tyler, records Ranitidine Nausea Only Per prior PCP, Dr. Abdias Tyler, records Bacitracin Contact Dermatitis, Itchy Throat, Rash and Runny Nose Carvedilol Dyspepsia Levaquin [Levofloxacin] Fluoroquinolones has been added 2/2 documented diagnosis of Myasthenia Gravis. IF MG is not a confirmed by testing diagnosis, deletion of this allergy may be considered. Myasthenia Gravis is documented in patient chart by PCP but patient and state Neurology has not informed them that this is a confirmed diagnosis. Nsaids CAD with unstable angina Penicillins Rash Past Medical History: Diagnosis Date TIFF (acute kidney injury) 09/24/2019 DR RAMAN STATES EVERYTHING IS NOW NORMAL Allergic rhinitis Arthritis joints & legs At risk for sleep apnea 04/08/2019 ST[facility]BANG 08/07 ( snores loudly, BP med, BMI > 35, age > 50, Neck size > 16in, male) Atrial enlargement, left 01/26/2018 Mild on echocardiogram BPH (benign prostatic hyperplasia) CAD (Coronary Artery Disease) on CT scan 07/15/2019 Cardiac angina Cataract Depression Essential hypertension, benign H/O colonoscopy 08/24/2013 Hammer toe History of urinary urgency Hypercholesterolemia 03/02/1994 Hyperlipidemia Hyperlipoproteinemia 03/02/1994 LDL Hypersomnia Influenza vaccine refused 11/22/2015 Muscle weakness Obesity Orthopnea 01/07/2018 CONCHITA (obstructive sleep apnea) 06/07/[address] Evgeny Valdez NO significant sleep-related breathing disorder after sleep study 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 Avalos Type II diabetes mellitus, uncontrolled Vaccination refused by patient 11/22/2015 Zoster refused Vitamin D deficiency 03/02/2013 Past Surgical History: Procedure Laterality Date CYSTOURETHOSCOPY W/ INJECTION FOR CHEMODENERVATION BLADDER N/A 01/15/2021 Laterality: N/A; Surgeon: Terrance Moseley MD; Location: [facility] ARTHROTOMY KNEE Right 05/22/2020 Laterality: Right; Surgeon: Adele Matthews MD; Location: [facility] ARTHROPLASTY KNEE TOTAL Right 04/16/2020 Laterality: Right; Surgeon: Adele Matthews MD; Location: [facility] OR SLITTING PENIS PREPUCE N/A 04/26/2019 Laterality: N/A; Surgeon: Terrance Moseley MD; Location: [facility] OR PROSTATECTOMY TRANSURETHRAL ELECTROSURGICAL (TURP) N/A 04/26/2019 Laterality: N/A; Surgeon: Terrance Moseley MD; Location: [facility] CYSTOURETHROSCOPY W/ URETERAL CATHETERIZATION Bilateral 04/26/2019 Laterality: Bilateral; Surgeon: Terrance Moseley MD; Location: [facility] HEART CATHETERIZATION 2019 Dr. Persaud EYE SURGERY Bilateral 01/2018 eyelids raised EXTRACTION EXTRACAPSULAR CATARACT W/ IMPLANT (ECCE IOL) Right 11/10/2016 Laterality: Right; Surgeon: Yimi Maki MD; Location: [facility] EXTRACTION EXTRACAPSULAR CATARACT W/ IMPLANT (ECCE IOL) Left 10/27/2016 Laterality: Left; Surgeon: Yimi Maki MD; Location: [facility] OR COLONOSCOPY DIAGNOSTIC 08/24/2013 HERNIA REPAIR 1996 CIRCUMCISION N/A 03 Apr 2019 Social History Socioeconomic History Marital status: Spouse name: Filomena Merchant Number of children: 2 Years of education: Not on file Highest education level: Not on file Occupational History Employer: RETIRED Tobacco Use Smoking status: Never Smoker Smokeless tobacco: Never Used Vaping Use Vaping Use: Never used Substance and Sexual Activity Alcohol use: Yes Comment: infrequently Drug use: No Sexual activity: Not on file Other Topics Concern Not on file Social History Narrative Not on file Social Determinants of Health Financial Resource Strain: Not on file Food Insecurity: Not on file Transportation Needs: Not on file Physical Activity: Not on file Stress: Not on file Social Connections: Not on file Intimate Partner Violence: Not on file Housing Stability: Not on file Family History Problem Relation Age of Onset Hypertension Father Lipid Disorder Father high cholesterol Lung Cancer Father Diabetes Sister DM type 2 Current Outpatient Medications: betamethasone valerate 0.1 % Cream, Apply 1 Application topically 2 times daily as needed., Disp: , Rfl: Blood Glucose Monitoring Suppl (Blood Glucose Monitor System) w/Device Kit, 1 Each by Unknown route As directed., Disp: 1 kit, Rfl: 0 Calcium Polycarbophil (FIBER-CAPS PO), Take by mouth 2 times daily. ( increased 12/26/20), Disp: , Rfl: calcium-vitamin D 500-200 MG-UNIT tablet, Take 1 tablet by mouth 3 times daily. (Patient taking differently: Take 1 tablet by mouth 2 times daily.), Disp: 90 tablet, Rfl: 11 carbidopa-levodopa 25-100 MG per tablet, Take 1 tablet by mouth 3 times daily., Disp: 90 tablet, Rfl: 11 carveDILOL 6.25 MG tablet, Take 1 tablet by mouth 2 times daily with meals., Disp: 60 tablet, Rfl: 0 clotrimazole 1 % Cream, Apply 1 Application topically 2 times daily. Apply between toes to rash once or twice daily, Disp: 60 g, Rfl: 1 Continuous Blood Gluc Ship Purser (FREESTYLE RAYNA 14 DAY READER) Device, 1 Device by Unknown route 4 times daily. To be used with Rayna Sensors, Disp: 1 Device, Rfl: 0 Continuous Blood Gluc Sensor (FreeStyle Rayna 14 Day Sensor) Misc, 1 Each by Unknown route every 14 days. apply to upper arm every 14 days to test blood sugars 4x daily, Disp: 2 Each, Rfl: 4 DISABILITY PLACARD, Disability placard end date 05/30/2024, Disp: 1 Each, Rfl: 0 fluconazole 150 MG tablet, Take 1 tablet by mouth once a week., Disp: 12 tablet, Rfl: 1 furOSEmide 20 MG tablet, Take 1 tablet by mouth daily. Okay to take an extra 20 mg daily for weight gain or swelling., Disp: 120 tablet, Rfl: 3 Glucagon, rDNA, (Glucagon Emergency) 1 MG Kit, To use as directed for severe hypoglycemia, Disp: 1 kit, Rfl: 11 GLUCOSE MONITOR LANCETS PRESCRIPTION, Test blood sugar 4 times per day. Is on insulin therapy., Disp: 120 Container, Rfl: 11 GLUCOSE TEST STRIPS PRESCRIPTION, Test blood sugar 4 times per day. Is on insulin therapy., Disp: 120 Container, Rfl: 11 Icosapent Ethyl (Vascepa) 1 g capsule, Take 2 capsules by mouth 2 times daily. (for high triglycerides), Disp: 360 capsule, Rfl: 3 insulin NPH (NovoLIN N) 100 UNIT/ML injection, 20 units in the morning and at 15 units bedtime, Disp: 1 vial, Rfl: 3 insulin regular (NOVOLIN R) 1 unit/0.01 ml vial, Inject 15 Units under the skin 3 times daily (take before meals)., Disp: 2 vial, Rfl: 2 Insulin Syringe-Needle U-100 (INSULIN SYRINGE .3CC/31GX5/16 ) 31G X 5/16 0.3 ML Misc, To be used with insulin 4 times a day. E11.42, Disp: 150 Each, Rfl: 4 Loratadine 10 MG Tab Dispersible, Take 1 tablet by mouth as needed., Disp: 90 tablet, Rfl: 3 Magnesium 250 MG tablet, Take 250 mg by mouth daily., Disp: , Rfl: Melatonin 5 MG Chew Tab, Chew 1 tablet at bedtime., Disp: 30 tablet, Rfl: 1 metFORMIN 500 MG tablet, Take 2 tablets by mouth 2 times daily with meals., Disp: 360 tablet, Rfl: 1 nitroGLYCERIN 0.4 MG tablet SL, Place 1 tablet under tongue every 5 minutes as needed for Chest pain. max = 3 doses. If CP persists after 3rd dose, call 911, Disp: 25 tablet, Rfl: 3 polyethylene glycol 17 GM/SCOOP Powder powder, Take 17 g by mouth daily as needed for Constipation. ( altered 12/26/20), Disp: , Rfl: Pramipexole Dihydrochloride 0.75 MG tablet, Take 1 tablet by mouth every evening. (for restless leg syndrome), Disp: 90 tablet, Rfl: 3 rosuvastatin 20 MG tablet, Take 1 tablet by mouth at bedtime. For high cholesterol, Disp: 90 tablet, Rfl: 3 triamcinolone 0.1 % Cream cream, Apply topically Twice daily., Disp: , Rfl: venlafaxine 75 MG tablet, Take 1 tablet by mouth 2 times daily., Disp: 180 tablet, Rfl: 3 Vitamin D3 1000 units Tab, Take 1,000 Units by mouth daily. , Disp: , Rfl: EXAM Smoking Status Never Smoker Physical Exam Vitals and nursing note reviewed. Constitutional: General: He is not in acute distress. Appearance: He is not toxic-appearing. HENT: Head: Normocephalic and atraumatic. Mouth/Throat: Pharynx: Oropharynx is clear. No oropharyngeal exudate. Eyes: Extraocular Movements: Extraocular movements intact. Conjunctiva/sclera: Conjunctivae normal. Pupils: Pupils are equal, round, and reactive to light. Cardiovascular: Rate and Rhythm: Normal rate. Pulses: Normal pulses. Heart sounds: No murmur heard. Pulmonary: Effort: No respiratory distress. Breath sounds: Normal breath sounds. No rhonchi or rales. Abdominal: General: Bowel sounds are normal. There is no distension. Palpations: Abdomen is soft. There is no mass. Tenderness: There is no abdominal tenderness. There is no guarding. Genitourinary: Comments: No CVA or suprapubic tenderness Musculoskeletal: General: No swelling or tenderness. Normal range of motion. Cervical back: Normal range of motion. No rigidity. Right lower leg: Edema present. Left lower leg: Edema present. Comments: Right prosthetic knee with well-healed incision and no evidence of infection Skin: General: Skin is warm. Findings: No rash. Comments: onychomycosis of left great toe improving over time Chronic vascular changes of lower extremity with mild +1 pitting edema with reactive erythema. No cellulitis noted. Has a few open wounds without evidence of cellulitis and these are superficial Neurological: Mental Status: He is alert and oriented to person, place, and time. Comments: Parkinsonian symptoms Psychiatric: Mood and Affect: Mood normal. Behavior: Behavior normal. Thought Content: Thought content normal. LABS CBC Lab Results Component Value Date WBC 7.6 05/27/2021 HGB 14.8 05/27/2021 HCT 43.0 05/27/2021 PLATELET 223 05/27/2021 MCV 79.4 (L) 05/27/2021 EDIF Lab Results Component Value Date RBCDISTRIBU 14.7 (H) 05/27/2021 EOSINOPHILS 3.1 10/14/2020 EOSINOPHILS 0.20 10/14/2020 BASOPHILS 0.4 10/14/2020 BASOPHILS 0.0 10/14/2020 LYMPHOCYTABS 0.90 (L) 10/14/2020 PLATELET 223 05/27/2021 MPV 6.7 (L) 05/27/2021 EDIF Lab Results Component Value Date RBCDISTRIBU 14.7 (H) 05/27/2021 EOSINOPHILS 3.1 10/14/2020 EOSINOPHILS 0.20 10/14/2020 BASOPHILS 0.4 10/14/2020 BASOPHILS 0.0 10/14/2020 LYMPHOCYTABS 0.90 (L) 10/14/2020 PLATELET 223 05/27/2021 MPV 6.7 (L) 05/27/2021 ESR Lab Results Component Value Date RBCDISTRIBU 14.7 (H) 05/27/2021 EOSINOPHILS 3.1 10/14/2020 EOSINOPHILS 0.20 10/14/2020 BASOPHILS 0.4 10/14/2020 BASOPHILS 0.0 10/14/2020 LYMPHOCYTABS 0.90 (L) 10/14/2020 PLATELET 223 05/27/2021 MPV 6.7 (L) 05/27/2021 Lab Results Component Value Date SODIUM 136 (L) 05/27/2021 POTASSIUM 4.4 05/27/2021 CHLORIDE 98 05/27/2021 CO2 29 05/27/2021 BUN 24 (H) 05/27/2021 CREATSERUM 1.06 05/27/2021 GLUCOSE neg 08/26/2021 Lab Results Component Value Date CRP 9.1 05/27/2021 Lab Results Component Value Date RESULTCULT NO GROWTH 21 DAYS 05/07/2021 . Lab Results Component Value Date GLUCOSE neg 08/26/2021 . Lab Results Component Value Date CALCIUM 9.5 05/27/2021 Lab Results Component Value Date ALBUMIN 4.7 05/27/2021 SIUM 05/27/2021 CHLORIDE 05/27/2021 CO2 03/ Lab Results Component Value Date BILITOTAL 0.7 05/27/2021 Lab Results Component Value Date BUN 24 (H) 05/27/2021 CV Lab Results Component Value Date CREATSERUM 1.06 05/27/2021 CREATURINE 37.6 05/27/2021 3/ Lab Results Component Value Date SODIUM 136 (L) 05/27/2021 POTASSIUM 4.4 05/27/2021 CHLORIDE 98 05/27/2021 CO2 29 05/27/2021 BILITOTAL 0.7 05/27/2021 BILIDIRECT 0.2 10/14/2020 No orders to display IMAGING No results found. Diagnosis/Plan: There are no diagnoses linked to this encounter. Hx of RLE cellulitis -Finish prior antibiotics on 05/21 given no cellulitis on exam on 05/21 visit -Given history of recurrent infection and ongoing risk factors of infection (venous insufficiency, fungal toenail infection) Was given prophylactic penicillin 500 mg po bid, the patient states he developed a papular rash of the lower extremities with itching due to that medication that resolved once he stopped the medication approximately 06/08; remains off of prophylactic antibiotics at this time -no evidence of infection at this time -Continue compression stockings; Per chart review Dr. Persaud regarding lymphedema compressions; Dr. Matthews's note reviewed -Excellent skin care and compression stockings discussed with patient as well as elevation Onychomycosis And tinea pedis -Nail trimming -Keep feet dry -continue topical clotrimazole between toes as needed -continue Fluconazole weekly -Refills given, improving overall Right TKA -history of Synovial tap with negative cultures; 209 white cells and over 33,000 red cells with traumatic tap -CRP 9.1 and normal on 05/19 -No clear signs of PJI on today's exam Healthcare maintenance -Did receive covid vaccine per his report. Last dose on 03/02/21 and discussed with him the fourth vaccine dose 4 months after his last booster ; this was discussed with patient today And he was reminded to follow-up with his local pharmacy. -history of pneumococcal conjugate and polysaccharide vaccine -History of tetanus shot in 2016 -History of prior hepatitis B vaccination -Discussed with him flu vaccination this fall but patient states he typically does not get the flu shot but this was recommended unless there is a known contraindication Foot fracture - ambulating well with no issues, uses cane as needed Diabetes -Elevated A1c to 7.8 on 05/27 ; follow-up A1c ordered and pending - recommend excellent to glucose control Overactive bladder -Patient seeing urology who is considering Botox injections if possible -Recent urinalysis was negative for infection 08/26 Right lower extremity wounds, superficial -These are result of his edema but do not appear to be infected -Local wound care, patient does have allergy to bacitracin so this should be avoided RTC in 2 months, sooner if any new infectious disease concerns. Patient states he may be moving out of [facility], recommended that he establish care there or continue to return for periodic assessments. Refills given 22 minutes of care Please note Portions of this note utilized [employer] dictation software, please excuse any typographical or grammatical errors. documented in this encounter [facility] 08-26-2021 History of Present illness Narrative Nurse Note: Review of Systems Genitourinary: Positive for frequency and urgency. Negative for difficulty urinating, dysuria, flank pain, hematuria, penile pain and testicular pain. All other systems reviewed and are negative. Nursing Assessment: Physical Exam Patient comes today for OAB F/U. Patient states he has frequency & urgency all the time. PVR: 20 Lab Results Component Value Date APPEARANCE clear 08/26/2021 COLOR yellow 08/26/2021 SPECIFICGRAV 1.025 08/26/2021 BLOOD neg 08/26/2021 PH 6.5 08/26/2021 PROTEIN neg 08/26/2021 UROBILINOGEN 1.0 08/26/2021 NITRITE neg 08/26/2021 LEUKOCYTE TRACE 08/26/2021 LEUKOCESTUR NEGATIVE 04/19/2020 Chief Complaint Patient presents with Follow-up OAB HPI: 71 y.o. male known to the urology department for BPH with severe lower urinary tract symptoms. History of TURP in 04/2018. He underwent intravesical botox injections 12/2020 due to worsening LUTS. He had signficant improvement initially but symptoms have worsened over the past 3 months. Anticholinergics were ineffective. Myrbetriq was cost prohibitive. ROS: Nurse Note: Review of Systems Genitourinary: Positive for frequency and urgency. Negative for difficulty urinating, dysuria, flank pain, hematuria, penile pain and testicular pain. All other systems reviewed and are negative. Nursing Assessment: Physical Exam Patient comes today for OAB F/U. Patient states he has frequency & urgency all the time. PVR: 20 Lab Results Component Value Date APPEARANCE clear 08/26/2021 COLOR yellow 08/26/2021 SPECIFICGRAV 1.025 08/26/2021 BLOOD neg 08/26/2021 PH 6.5 08/26/2021 PROTEIN neg 08/26/2021 UROBILINOGEN 1.0 08/26/2021 NITRITE neg 08/26/2021 LEUKOCYTE TRACE 08/26/2021 LEUKOCESTUR NEGATIVE 04/19/2020 History Allergies Allergen Reactions Hydroxyzine Confusion Lipitor [Atorvastatin] Myalgia Intolerable muscle pain Per prior PCP, Dr. Abdias Tyler, records and CoQ10 failure Bactrim [Sulfamethoxazole-Trimethoprim] Hives Coq10 [Coenzyme Q10] Dreams, Abnormal Nightmares Lisinopril Cough Per prior PCP, Dr. Abdias Tyler, records Pravastatin Myalgia ( and VALLADARES ) Per prior PCP, Dr. Abdias Tyler, records Ranitidine Nausea Only Per prior PCP, Dr. Abdias Tyler, records Bacitracin Contact Dermatitis, Itchy Throat, Rash and Runny Nose Carvedilol Dyspepsia Levaquin [Levofloxacin] Fluoroquinolones has been added 2/2 documented diagnosis of Myasthenia Gravis. IF MG is not a confirmed by testing diagnosis, deletion of this allergy may be considered. Myasthenia Gravis is documented in patient chart by PCP but patient and state Neurology has not informed them that this is a confirmed diagnosis. Nsaids CAD with unstable angina Penicillins Rash has Obesity; Allergic rhinitis; Type 1 diabetes mellitus with other specified complication; Hypercholesterolemia; RLS (restless legs syndrome); Vitamin D deficiency; Periodic limb movement disorder; Diabetic Polyneuropathy; Pes planus; Hypertension, essential; Other motor neuron disease; Hypersomnia; BPH (benign prostatic hyperplasia); Hammer toe; Cervical radiculopathy; Chronic neck pain; Impingement syndrome of left shoulder; Depression, recurrent-moderate; Edema, localized to the legs; Orthopnea; Wheezing; Shortness of breath; Venous stasis ulcer limited to breakdown of skin without varicose veins; Bloating; Hypertensive heart disease without heart failure; Atrial enlargement, left; Aortic valve sclerosis; Pulmonary hypertension; Pericardial effusion; Ptosis, paralytic of bilateral eyelids; Venous insufficiency; Restrictive lung disease; Neuropathic pain; Osteoarthritis of left knee, primarily; Fracture shaft of right FIBULA, traumatic, Closed nondisplaced transverse; Osteoarthritis of right knee, primary-severe; Recurrent falls; Unstable angina; Atrial Fibrillation, NOS; Abnormal cardiovascular function; Benign prostatic hyperplasia with urinary obstruction; Urge incontinence; Phimosis; CONCHITA (obstructive sleep apnea); Reactive airway disease without complication; Diastolic heart disease-chronic with failure; CAD (Coronary Artery Disease) on CT scan; CANCER-Adenocarcinoma of prostate, stage 1; Metabolic encephalopathy; Hypertriglyceridemia; S/P TKR (total knee replacement), right; Diabetic polyneuropathy associated with type 2 diabetes mellitus; Obesity (BMI 35-39.9); Osteoarthritis; Constipation, chronic-idiopathic; Parkinson's disease; Dermatophytosis of nail; and Osteopenia on their problem list. Current Outpatient Medications Medication Sig Dispense Refill betamethasone valerate 0.1 % Cream Apply 1 Application topically 2 times daily as needed. Blood Glucose Monitoring Suppl (Blood Glucose Monitor System) w/Device Kit 1 Each by Unknown route As directed. 1 kit 0 Calcium Polycarbophil (FIBER-CAPS PO) Take by mouth 2 times daily. ( increased 12/26/20) calcium-vitamin D 500-200 MG-UNIT tablet Take 1 tablet by mouth 3 times daily. (Patient taking differently: Take 1 tablet by mouth 2 times daily.) 90 tablet 11 carbidopa-levodopa 25-100 MG per tablet Take 1 tablet by mouth 3 times daily. 90 tablet 11 carveDILOL 6.25 MG tablet Take 1 tablet by mouth 2 times daily with meals. 60 tablet 0 clotrimazole 1 % Cream Apply 1 Application topically 2 times daily. Apply between toes to rash once or twice daily 60 g 1 Continuous Blood Gluc Ship Purser (FREESTYLE RAYNA 14 DAY READER) Device 1 Device by Unknown route 4 times daily. To be used with Rayna Sensors 1 Device 0 Continuous Blood Gluc Sensor (FreeStyle Rayna 14 Day Sensor) Misc 1 Each by Unknown route every 14 days. apply to upper arm every 14 days to test blood sugars 4x daily 2 Each 4 DISABILITY PLACARD Disability placard end date 05/30/2024 1 Each 0 fluconazole 150 MG tablet Take 1 tablet by mouth once a week. 12 tablet 1 furOSEmide 20 MG tablet Take 1 tablet by mouth daily. Okay to take an extra 20 mg daily for weight gain or swelling. 120 tablet 3 Glucagon, rDNA, (Glucagon Emergency) 1 MG Kit To use as directed for severe hypoglycemia 1 kit 11 GLUCOSE MONITOR LANCETS PRESCRIPTION Test blood sugar 4 times per day. Is on insulin therapy. 120 Container 11 GLUCOSE TEST STRIPS PRESCRIPTION Test blood sugar 4 times per day. Is on insulin therapy. 120 Container 11 Icosapent Ethyl (Vascepa) 1 g capsule Take 2 capsules by mouth 2 times daily. (for high triglycerides) 360 capsule 3 insulin NPH (NovoLIN N) 100 UNIT/ML injection 20 units in the morning and at 15 units bedtime 1 vial 3 insulin regular (NOVOLIN R) 1 unit/0.01 ml vial Inject 15 Units under the skin 3 times daily (take before meals). 2 vial 2 Insulin Syringe-Needle U-100 (INSULIN SYRINGE .3CC/31GX5/16 ) 31G X 5/16 0.3 ML Misc To be used with insulin 4 times a day. E11.42 150 Each 4 Loratadine 10 MG Tab Dispersible Take 1 tablet by mouth as needed. 90 tablet 3 Magnesium 250 MG tablet Take 250 mg by mouth daily. Melatonin 5 MG Chew Tab Chew 1 tablet at bedtime. 30 tablet 1 metFORMIN 500 MG tablet Take 2 tablets by mouth 2 times daily with meals. 360 tablet 1 nitroGLYCERIN 0.[address] 1 tablet under tongue every 5 minutes as needed for Chest pain. max = 3 doses. If CP persists after 3rd dose, call 911 25 tablet 3 polyethylene glycol 17 GM/SCOOP Powder powder Take 17 g by mouth daily as needed for Constipation. ( altered 12/26/20) Pramipexole Dihydrochloride 0.75 MG tablet Take 1 tablet by mouth every evening. (for restless leg syndrome) 90 tablet 3 rosuvastatin 20 MG tablet Take 1 tablet by mouth at bedtime. For high cholesterol 90 tablet 3 triamcinolone 0.1 % Cream cream Apply topically Twice daily. venlafaxine 75 MG tablet Take 1 tablet by mouth 2 times daily. 180 tablet 3 Vitamin D3 1000 units Tab Take 1,000 Units by mouth daily. No current facility-administered medications for this visit. family history includes Diabetes in his sister; Hypertension in his father; Lipid Disorder in his father; Lung Cancer in his father. Past Medical History: Diagnosis Date Restless leg 03/02/1989 Pes planus 03/02/1992 Hyperlipoproteinemia 03/02/1994 LDL Hypercholesterolemia 03/02/1994 Type 2 diabetes mellitus with polyneuropathy 03/02/[address] 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 Periodic limb movement disorder 06/07/2015 CONCHITA (obstructive sleep apnea) 06/07/[address] Evgeny Valdez NO significant sleep-related breathing disorder after sleep study Influenza vaccine refused 11/22/2015 Vaccination refused by patient 11/22/2015 Zoster refused Orthopnea 01/07/2018 Pulmonary hypertension 01/26/2018 Moderate pulmonary hypertension with RVSP of 53.98 mmHg Atrial enlargement, left 01/26/2018 Mild on echocardiogram Pericardial effusion 01/26/2018 Mild on echocardiogram Restrictive lung disease 01/29/2018 Moderate on pulmonary function tests, with CC: of wheezing and decades of smoke EXPOSURE Restrictive lung disease 01/29/2018 Moderate on pulmonary function tests, with CC: of wheezing and decades of smoke EXPOSURE At risk for sleep apnea 04/08/2019 STOPBANG 08/07 ( snores loudly, BP med, BMI > 35, age > 50, Neck size > 16in, male) Other secondary pulmonary hypertension 06/23/2019 CAD (Coronary Artery Disease) on CT scan 07/15/2019 TIFF (acute kidney injury) 09/24/2019 DR RAMAN STATES EVERYTHING IS NOW NORMAL Allergic rhinitis Arthritis joints & legs BPH (benign prostatic hyperplasia) Cardiac angina Cataract Depression Essential hypertension, benign Hammer toe History of urinary urgency Hyperlipidemia Hypersomnia Muscle weakness Obesity Polyneuropathy Type II diabetes mellitus, uncontrolled Past Surgical History: Procedure Laterality Date CYSTOURETHOSCOPY W/ INJECTION FOR CHEMODENERVATION BLADDER N/A 01/15/2021 Laterality: N/A; Surgeon: Terrance Moseley MD; [facility] ARTHROTOMY KNEE Right 05/22/2020 Laterality: Right; Surgeon: Adele Matthews MD; Location: [facility] OR ARTHROPLASTY KNEE TOTAL Right 04/16/2020 Laterality: Right; Surgeon: Adele Matthews MD; Location: [facility] OR SLITTING PENIS PREPUCE N/A 04/26/2019 Laterality: N/A; Surgeon: Terrance Moseley MD; Location: [facility] OR PROSTATECTOMY TRANSURETHRAL ELECTROSURGICAL (TURP) N/A 04/26/2019 Laterality: N/A; Surgeon: Terrance Moseley MD; Location: [facility] OR CYSTOURETHROSCOPY W/ URETERAL CATHETERIZATION Bilateral 04/26/2019 Laterality: Bilateral; Surgeon: Terrance Moseley MD; Location: [facility] OR HEART CATHETERIZATION 2019 Dr. Persaud EYE SURGERY Bilateral 01/2018 eyelids raised EXTRACTION EXTRACAPSULAR CATARACT W/ IMPLANT (ECCE IOL) Right 11/10/2016 Laterality: Right; Surgeon: Yimi Maki MD; Location: [facility] OR EXTRACTION EXTRACAPSULAR CATARACT W/ IMPLANT (ECCE IOL) Left 10/27/2016 Laterality: Left; Surgeon: Yimi Maki MD; Location: [facility] OR COLONOSCOPY DIAGNOSTIC 08/24/2013 HERNIA REPAIR 1996 CIRCUMCISION N/A 03 Apr 2019 Social History Socioeconomic History Marital status: Spouse name: Filomena Merchant Number of children: 2 Years of education: Not on file Highest education level: Not on file Occupational History Employer: RETIRED Tobacco Use Smoking status: Never Smoker Smokeless tobacco: Never Used Vaping Use Vaping Use: Never used Substance and Sexual Activity Alcohol use: Yes Comment: infrequently Drug use: No Sexual activity: Not on file Other Topics Concern Not on file Social History Narrative Not on file Social Determinants of Health Financial Resource Strain: Not on file Food Insecurity: Not on file Transportation Needs: Not on file Physical Activity: Not on file Stress: Not on file Social Connections: Not on file Intimate Partner Violence: Not on file Housing Stability: Not on file Physical Exam: Resp 18 Ht 1.829 m (6') Wt 122.5 kg (270 lb) BMI 36.62 kg/m Smoking Status Never Smoker Body mass index is 36.62 kg/m . Constitutional: Appears well, no acute distress. Cardiovascular: Regular rate and rhythm. No lower extremity edema. Pulmonary: Respirations even and unlabored. Lungs clear to auscultation. Abdomen: Soft, non-tender. Bowel sounds active x 4. No CVA/suprapubic tenderness noted. Musculoskeletal: All major joints are without swelling, erythema, or bony deformity. Normal range of motion of all major joints. Skin: Warm, dry and intact. Neuro: No sensory or motor deficits. Assessment/Plan: 1. OAB (overactive bladder) 2. Urinary urgency 3. Urinary frequency 4. Urge incontinence Urinalysis and bladder scan are normal. Worsening lower urinary tract symptoms. He would like to repeat botox injections. Unfortunately this is not currently being offered. I will check with Dr. Moseley and/or police commanding officer for update. HgbA1c 7.8 PSA 0.287 (12/2020) - POCT URINALYSIS DIPSTICK AUTOMATED W/O SCOP Patient was advised to call with any questions or concerns. If symptoms worsen patient was advised to follow up in our office or the Emergency Dept. Benefits, Risks, Contraindications, and Complications of recommended treatments were explained the patient understands and agrees to proceed with plan. documented in this encounter [facility] 08-14-2021 History of Present illness Narrative Associated Order(s): SMALL JOINT/BURSA INJECTION AND/OR ASPIRATION: L long MCP Post-Procedure Diagnose(s): Pain of left hand SMALL JOINT/BURSA INJECTION AND/OR ASPIRATION: L long MCP Date/Time: 08/14/2021 9:30 AM Supporting Documentation Indications: pain Procedure Details: Location: long finger - L long MCP Local Anesthetic: ethyl chloride (cold spray) Needle size: 25 G Medication Verification: I have personally verified and performed the final check of the medication(s) used in this procedure prior to administration. The following items were included during the verification process for medication(s) administered: drug name, strength, volume, expiration, physical integrity and appearance of the medication(s). Medications administered: 12 mg betamethasone acetate 6 (3-3) MG/ML; 2 mL lidocaine 10 mg/mL Consent: Consent was obtained prior to the procedure after discussion of the risks, benefits and alternatives, and expected outcomes were discussed with the patient. The possibilities of reaction to medication, bleeding, infection, the need for additional procedures, failure to diagnosis a condition, and creating a complication requiring operation were discussed with the patient. The patient concurred with the proposed plan, giving consent. The patient was prepped with alcohol. 08/14/21 The patient is a pleasant 71 y.o. male. Chief Complaint Patient presents with Right Ankle - Follow-up Felling better. No pain. Occasional swelling with certain activities. Left Knee - Follow-up Patient doing better. Still occasional pain with certain activities. HPI: He is here with his who provided additional history. He has complaint of pain over the left hand, swelling in both lower extremities. Right ankle discomfort. Bilateral lower extremity swelling. He had total knee on the right side in the past. He has had ankle fracture repair on the right side with date of injury 04/09/21 following a fall. He has had chronic bilateral peripheral edema and lower extremity pretibial cellulitis. He has been treated by Dr. Persaud with 2 different leg compression suits, but he does not use them because it is difficult to get them on and off. He does not qualify for a visiting nurse since he is not limited in his ability to go out of the house and travel for outpatient treatments. His provided this history. His left shoulder and neck pain are tolerable. He requested injection for his left hand. His condition is chronic and not at goal. Histories: Past Medical History: Diagnosis Date TIFF (acute kidney injury) 09/24/2019 DR RAMAN STATES EVERYTHING IS NOW NORMAL Allergic rhinitis Arthritis joints & legs At risk for sleep apnea 04/08/2019 STOPBANG 08/07 ( snores loudly, BP med, BMI > 35, age > 50, Neck size > 16in, male) Atrial enlargement, left 01/26/2018 Mild on echocardiogram BPH (benign prostatic hyperplasia) CAD (Coronary Artery Disease) on CT scan 07/15/2019 Cardiac angina Cataract Depression Essential hypertension, benign H/O colonoscopy 08/24/2013 Hammer toe History of urinary urgency Hypercholesterolemia 03/02/1994 Hyperlipidemia Hyperlipoproteinemia 03/02/1994 LDL Hypersomnia Influenza vaccine refused 11/22/2015 Muscle weakness Obesity Orthopnea 01/07/2018 CONCHITA (obstructive sleep apnea) 06/07/[address] Evgeny Valdez NO significant sleep-related breathing disorder after sleep study 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 Avalos Type II diabetes mellitus, uncontrolled Vaccination refused by patient 11/22/2015 Zoster refused Vitamin D deficiency 03/02/2013 Family History Problem Relation Age of Onset Hypertension Father Lipid Disorder Father high cholesterol Lung Cancer Father Diabetes Sister DM type 2 Social History Tobacco Use Smoking status: Never Smoker Smokeless tobacco: Never Used Vaping Use Vaping Use: Never used Substance Use Topics Alcohol use: Yes Comment: infrequently Drug use: No Past Surgical History: Procedure Laterality Date CYSTOURETHOSCOPY W/ INJECTION FOR CHEMODENERVATION BLADDER N/A 01/15/2021 Laterality: N/A; Surgeon: Terrance Moseley MD; Location[facility] ARTHROTOMY KNEE Right 05/22/2020 Laterality: Right; Surgeon: Adele Matthews MD; Location: [facility] ARTHROPLASTY KNEE TOTAL Right 04/16/2020 Laterality: Right; Surgeon: Adele Matthews MD; Location: [facility] OR SLITTING PENIS PREPUCE N/A 04/26/2019 Laterality: N/A; Surgeon: Terrance Moseley MD; Location: [facility] OR PROSTATECTOMY TRANSURETHRAL ELECTROSURGICAL (TURP) N/A 04/26/2019 Laterality: N/A; Surgeon: Terrance Moseley MD; Location: [facility] CYSTOURETHROSCOPY W/ URETERAL CATHETERIZATION Bilateral 04/26/2019 Laterality: Bilateral; Surgeon: Terrance Moseley MD; Location: [facility] HEART CATHETERIZATION 2019 Dr. Persaud EYE SURGERY Bilateral 01/2018 eyelids raised EXTRACTION EXTRACAPSULAR CATARACT W/ IMPLANT (ECCE IOL) Right 11/10/2016 Laterality: Right; Surgeon: Yimi Maki MD; Location: [facility] EXTRACTION EXTRACAPSULAR CATARACT W/ IMPLANT (ECCE IOL) Left 10/27/2016 Laterality: Left; Surgeon: Yimi Maki MD; Location: [facility] OR COLONOSCOPY DIAGNOSTIC 08/24/2013 HERNIA REPAIR 1996 CIRCUMCISION N/A 03 Apr 2019 Past medical history, family history, social history, allergies and medications have been reviewed and are documented in the electronic record. Current Outpatient Medications: betamethasone valerate 0.1 % Cream, Apply 1 Application topically 2 times daily as needed., Disp: , Rfl: Blood Glucose Monitoring Suppl (Blood Glucose Monitor System) w/Device Kit, 1 Each by Unknown route As directed., Disp: 1 kit, Rfl: 0 Calcium Polycarbophil (FIBER-CAPS PO), Take by mouth 2 times daily. ( increased 12/26/20), Disp: , Rfl: calcium-vitamin D 500-200 MG-UNIT tablet, Take 1 tablet by mouth 3 times daily. (Patient taking differently: Take 1 tablet by mouth 2 times daily.), Disp: 90 tablet, Rfl: 11 carbidopa-levodopa 25-100 MG per tablet, Take 1 tablet by mouth 3 times daily., Disp: 90 tablet, Rfl: 11 carveDILOL 6.25 MG tablet, Take 1 tablet by mouth 2 times daily with meals., Disp: 60 tablet, Rfl: 0 clotrimazole 1 % Cream, Apply 1 Application topically 2 times daily. Apply between toes to rash once or twice daily, Disp: 60 g, Rfl: 1 Continuous Blood Gluc Ship Purser (FREESTYLE RAYNA 14 DAY READER) Device, 1 Device by Unknown route 4 times daily. To be used with Rayna Sensors, Disp: 1 Device, Rfl: 0 Continuous Blood Gluc Sensor (FreeStyle Rayna 14 Day Sensor) Misc, 1 Each by Unknown route every 14 days. apply to upper arm every 14 days to test blood sugars 4x daily, Disp: 2 Each, Rfl: 4 DISABILITY PLACARD, Disability placard end date 05/30/2024, Disp: 1 Each, Rfl: 0 fluconazole 150 MG tablet, Take 1 tablet by mouth once a week., Disp: 12 tablet, Rfl: 1 furOSEmide 20 MG tablet, Take 1 tablet by mouth daily. Okay to take an extra 20 mg daily for weight gain or swelling., Disp: 120 tablet, Rfl: 3 Glucagon, rDNA, (Glucagon Emergency) 1 MG Kit, To use as directed for severe hypoglycemia, Disp: 1 kit, Rfl: 11 GLUCOSE MONITOR LANCETS PRESCRIPTION, Test blood sugar 4 times per day. Is on insulin therapy., Disp: 120 Container, Rfl: 11 GLUCOSE TEST STRIPS PRESCRIPTION, Test blood sugar 4 times per day. Is on insulin therapy., Disp: 120 Container, Rfl: 11 Icosapent Ethyl (Vascepa) 1 g capsule, Take 2 capsules by mouth 2 times daily. (for high triglycerides), Disp: 360 capsule, Rfl: 3 insulin NPH (NovoLIN N) 100 UNIT/ML injection, 20 units in the morning and at 15 units bedtime, Disp: 1 vial, Rfl: 3 insulin regular (NOVOLIN R) 1 unit/0.01 ml vial, Inject 15 Units under the skin 3 times daily (take before meals)., Disp: 2 vial, Rfl: 2 Insulin Syringe-Needle U-100 (INSULIN SYRINGE .3CC/31GX5/16 ) 31G X 5/16 0.3 ML Misc, To be used with insulin 4 times a day. E11.42, Disp: 150 Each, Rfl: 4 Loratadine 10 MG Tab Dispersible, Take 1 tablet by mouth as needed., Disp: 90 tablet, Rfl: 3 Magnesium 250 MG tablet, Take 250 mg by mouth daily., Disp: , Rfl: Melatonin 5 MG Chew Tab, Chew 1 tablet at bedtime., Disp: 30 tablet, Rfl: 1 metFORMIN 500 MG tablet, Take 2 tablets by mouth 2 times daily with meals., Disp: 360 tablet, Rfl: 1 nitroGLYCERIN 0.4 MG tablet SL, Place 1 tablet under tongue every 5 minutes as needed for Chest pain. max = 3 doses. If CP persists after 3rd dose, call 911, Disp: 25 tablet, Rfl: 3 polyethylene glycol 17 GM/SCOOP Powder powder, Take 17 g by mouth daily as needed for Constipation. ( altered 12/26/20), Disp: , Rfl: Pramipexole Dihydrochloride 0.75 MG tablet, Take 1 tablet by mouth every evening. (for restless leg syndrome), Disp: 90 tablet, Rfl: 3 rosuvastatin 20 MG tablet, Take 1 tablet by mouth at bedtime. For high cholesterol, Disp: 90 tablet, Rfl: 3 triamcinolone 0.1 % Cream cream, Apply topically Twice daily., Disp: , Rfl: venlafaxine 75 MG tablet, Take 1 tablet by mouth 2 times daily., Disp: 180 tablet, Rfl: 3 Vitamin D3 1000 units Tab, Take 1,000 Units by mouth daily. , Disp: , Rfl: Review of Systems Constitutional No fevers, chills or sweats, unintentional weight gain or weight loss, night pain, or night sweats except as per HPI. Cardiovascular No recent chest pain or palpitations. No claudication. No new or worsening lower extremity edema except as per HPI. Respiratory No new or worsening shortness of breath, dyspnea on exertion, orthopnea or paroxysmal nocturnal dyspnea except as per HPI. Gastrointestinal No recent heartburn or stomach upset, no history of ulcers except as per HPI. Musculoskeletal No joint pain, stiffness, or weakness except as per HPI. Endocrine No polyphagia, polydipsia, or polyuria. Hematologic No known or recent anemia, no excessive bleeding. Rheumatologic No history or currently active autoimmune or rheumatologic disease except as per HPI. Integumentary No new or relevant rashes or lesions except as per HPI. Neurologic No numbness, tingling, or weakness into her distal extremities except as per HPI. Genitourinary No new or worsening dysuria, hematuria, urgency, flank pain, or STD except as per HPI. Physical exam Vitals: 08/14/21 1002 Resp: 18 Weight: 122.5 kg (270 lb 1 oz) Height: 1.829 m (6' 0.01 ) Body mass index is 36.62 kg/m . On examination patient is alert, oriented, pleasant and cooperative. Neurologic and vascular examination intact. Capillary refill is normal. Skin moisture, texture and temperature is normal. There is no adenopathy present. No shortness of breath. No hearing deficit. He has vision correction with glasses. He is wearing compression stockings. He complains about the compression band stocking at the top causing discomfort. I showed him how to fold it up and down to relieve pressure at the top of the sock. His cellulitis is being treated with a topical antibiotic cream and consultation with Dr. Kelley. Examination of his knees show no sign of infection. He has chronic venous insufficiency and lymphedema on clinical examination. Manual muscle testing shows grade 5/5 strength in the lower extremities. His physical therapy records reflect circumferential measurements of the right and left leg to be 27.3 cm on the right and 28.2 cm on the left side at 10 . Range of motion documented on the physical therapy note of 08/08/21 to show normal functional range bilateral. No knee instability on either side. Patient Active Problem List Diagnosis Obesity Allergic rhinitis Type 1 diabetes mellitus with other specified complication Hypercholesterolemia RLS (restless legs syndrome) Vitamin D deficiency Periodic limb movement disorder Diabetic Polyneuropathy Pes planus Hypertension, essential Other motor neuron disease Hypersomnia BPH (benign prostatic hyperplasia) Hammer toe Cervical radiculopathy Chronic neck pain Impingement syndrome of left shoulder Depression, recurrent-moderate Edema, localized to the legs Orthopnea Wheezing Shortness of breath Venous stasis ulcer limited to breakdown of skin without varicose veins Bloating Hypertensive heart disease without heart failure Atrial enlargement, left Aortic valve sclerosis Pulmonary hypertension Pericardial effusion Ptosis, paralytic of bilateral eyelids Venous insufficiency Restrictive lung disease Neuropathic pain Osteoarthritis of left knee, primarily Fracture shaft of right FIBULA, traumatic, Closed nondisplaced transverse Osteoarthritis of right knee, primary-severe Recurrent falls Unstable angina Atrial Fibrillation, NOS Abnormal cardiovascular function Benign prostatic hyperplasia with urinary obstruction Urge incontinence Phimosis CONCHITA (obstructive sleep apnea) Reactive airway disease without complication Diastolic heart disease-chronic with failure CAD (Coronary Artery Disease) on CT scan CANCER-Adenocarcinoma of prostate, stage 1 Metabolic encephalopathy Hypertriglyceridemia S/P TKR (total knee replacement), right Diabetic polyneuropathy associated with type 2 diabetes mellitus Obesity (BMI 35-39.9) Osteoarthritis Constipation, chronic-idiopathic Parkinson's disease Dermatophytosis of nail Osteopenia Assessment: 1. Status post right total knee. 2. Left knee osteoarthritis. 3. Elevated BMI. 4. Peripheral edema. 5. Hammertoe. 6. Cervical radiculopathy. 7. Impingement left shoulder. 8. Osteopenia by DEXA scan. 9. Right knee surgery 04/16/20 with removal of foreign body 05/22/20. 10. Iliotibial band tendonitis about the right knee, resolving well. 11. Acute fracture distal fibula right side, date of injury 04/09/21, fall in the home. 12. Knee effusion right. 13. Cellulitis recurrence right tibia. 14. Sulfa allergy. 15. Hand osteoarthritis left metacarpophalangeal joints, index and long. Plan: He will adjust the band at the top of his socks as shown today. Quadriceps strengthening exercises for therapeutic exercise instruction was given to develop strength and endurance, range of motion and flexibility. This consisted of resisted muscle exercise instruction, which the patient demonstrated good understanding for, and will carry this out at home 15 minutes 4 times a day. He will proceed with his visit at the lymphedema clinic and take the compression trousers and see Dr. Persaud with those. Dr. Persaud' office ordered the compression garments and they may have some suggestions on how to put them off and on more easily. He will use the compression suit as much as possible. Elevation instructions given to decrease edema. Celestone-xylocaine injection for the metacarpophalangeal joint of the index and long fingers of the left hand carried out with ultrasound guidance for documentation, confirmation and localization. Follow up at his convenience in the future. I will review his consultation with Dr. Persaud at follow up along with the reports from the lymphedema clinic and the notes from Dr. Kelley at next visit. At next visit, bilateral lower extremity standing films will be carried out. We discussed the natural history of this problem and usual treatments. We discussed possible treatment options including conservative, aggressive, invasive and non-invasive. These options were explained in detail. The patient and/or guardian agreed with the above assessment and plan. Differential diagnoses were considered including but not limited to degenerative change, internal derangement, fracture and any other severely limiting injury. Medical Decision Making: At today's visit I reviewed the history and physical examination and previous pertinent imaging. We weighed the options of whether or not to proceed with an injection today based on these findings and discussed alternatives. After discussion we felt the injection was indicated and elected to proceed. This evaluation, management service is a separate and identifiable service apart from the injections. SMALL JOINT/BURSA INJECTION AND/OR ASPIRATION: L long MCP Date/Time: 08/14/2021 9:30 AM Supporting Documentation Indications: pain Procedure Details: Location: long finger - L long MCP Local Anesthetic: ethyl chloride (cold spray) Needle size: 25 G Medication Verification: I have personally verified and performed the final check of the medication(s) used in this procedure prior to administration. The following items were included during the verification process for medication(s) administered: drug name, strength, volume, expiration, physical integrity and appearance of the medication(s). Medications administered: 12 mg betamethasone acetate 6 (3-3) MG/ML; 2 mL lidocaine 10 mg/mL Consent: Consent was obtained prior to the procedure after discussion of the risks, benefits and alternatives, and expected outcomes were discussed with the patient. The possibilities of reaction to medication, bleeding, infection, the need for additional procedures, failure to diagnosis a condition, and creating a complication requiring operation were discussed with the patient. The patient concurred with the proposed plan, giving consent. The patient was prepped with alcohol. documented in this encounter [facility] 06-19-2021 History of Present illness Narrative Nurse Note: Review of Systems Constitutional: Negative for fatigue and unexpected weight change. Eyes: Negative for visual disturbance. Respiratory: Negative for cough and shortness of breath. Cardiovascular: Positive for leg swelling. Negative for chest pain. Gastrointestinal: Positive for constipation. Negative for diarrhea, nausea and vomiting. Endocrine: Positive for polyuria. Negative for polydipsia. Skin: Negative for rash. Neurological: Negative for numbness. Psychiatric/Behavioral: Negative for sleep disturbance. Patient has seen a camera operator many years ago in [place] Nursing Assessment: Physical Exam History of Present Illness Insulin dependent Diabetes- He is here today for follow-up for diabetes. He believes he has had diabetes since approximately 2008. There is a family history of diabetes. He is currently taking metformin 1000 mg twice a day, Novolin N 20 units in the a.m. and 15-20 units in the p.m., Novolin R 15-18 units with meals. Glipizide was discontinued previously as ineffective. He previously had a good response to Bydureon, but the agent is not affordable. He states he feels the best when his blood sugars are between 150-200 mg/dL. A1c = 7.8%, down from 8.4%, up from 7.6%, down from 8.1%, up from 7.8%, down from 8.3%. Urine microalbumin creatinine ratio elevated at 37, down from 69, GFR = 73. No anemia. He does have an elevated insulin antibody, previous C-peptide = 3.7 with concurrent fasting blood sugar 248 mg/dL. Last visit with ophthalmology was in May 2021, no diabetes retinopathy noted. Now following with local podiatry, Dr. De Dios, he does have chronic peripheral neuropathy. Has met with a subscription agent in the past. He has a history of severe hypoglycemia event requiring assistance. Does have injectable glucagon available at home. Checks his blood sugar with rayna device. Overall scan times adequate though he does note when he leaves the house he does not take rayna reader with him. Still has a lot of stress dealing with his diagnosis of Parkinson's, 's chronic illness. He also has been dealing with a right ankle fracture which he is now in therapy for. He has been testing blood sugar 4 times a day, and taking insulin 4 times a day. He has been doing this for the past 90 days. Hyperlipidemia: He is on rosuvastatin 20 mg daily and Vascepa 2 g twice a day. LDL = 45 mg/dL with triglycerides of 111. This is managed by PCP. Hypertension: This is managed by his PCP and cardiology. He is currently taking carvedilol 6.25 mg twice a day, Lasix 20 mg twice a day. Unable to tolerate OLGA inhibitor due to cough. Not currently on ARB therapy. Blood pressure high today though reports that his blood pressure is better other offices. Review of Systems Nurse Note: Review of Systems Constitutional: Negative for fatigue and unexpected weight change. Eyes: Negative for visual disturbance. Respiratory: Negative for cough and shortness of breath. Cardiovascular: Positive for leg swelling. Negative for chest pain. Gastrointestinal: Positive for constipation. Negative for diarrhea, nausea and vomiting. Endocrine: Positive for polyuria. Negative for polydipsia. Skin: Negative for rash. Neurological: Negative for numbness. Psychiatric/Behavioral: Negative for sleep disturbance. Patient has seen a camera operator many years ago in [place] Nursing Assessment: Physical Exam Vitals: Blood pressure 161/81, pulse 88, height 1.829 m (6' 0.01 ), weight 122.7 kg (270 lb 9.6 oz). Physical Exam Vitals and nursing note reviewed. HENT: Head: Normocephalic. Cardiovascular: Rate and Rhythm: Normal rate and regular rhythm. Heart sounds: Normal heart sounds. Pulmonary: Effort: Pulmonary effort is normal. Breath sounds: Normal breath sounds. Skin: General: Skin is warm and dry. Neurological: Mental Status: He is alert and oriented to person, place, and time. Psychiatric: Mood and Affect: Mood normal. Behavior: Behavior normal. Neurological Exam Mental Status Alert. Oriented to person, place, and time. Assessment and Plan Insulin-dependent diabetes: We discussed his A1c 7.8%. With his insulin use, comorbid conditions, and history of severe hypoglycemia would not strive for tight glycemic control. He reports he is not always agitating the NPH vial prior to dosing. We did review proper technique for mixing this insulin. We also reviewed rotating injection sites. We also stressed the importance of mixed meals and avoiding carbohydrates only meals which is something he is struggling with. We will plan on seeing him back in 3 months with labs prior. Hyperlipidemia: Meeting LDL targets, continue statin therapy. This is managed by PCP. Hypertension: This is managed by his PCP. Unfortunately blood pressure elevated today in the office though he notes he has not had his antihypertensives yet today. Recommended that he monitor blood pressure outside of the office and contact PCP if remains elevated. With his elevated urine microalbumin creatinine ratio, one could consider adding ARB therapy though we will leave this decision up to his PCP. documented in this encounter [facility] 06-19-2021 Procedure note Associated Ord er(s): [place] CONTINUOUS GLUCOSE MONITORING ANALYSIS I&R CGM data showing time in target range 38%, high 40%, very high 22%. GMI = 8.2%. CGM data trends shallow about half of the overnights are within target range, other overnights remaining above target range. We discussed mixed meals as he has frequently having carbohydrate only meals. We also stressed the importance of taking insulin with him if he eats outside of the home which is not currently doing. Discussed ways to increase scan time on rayna device. [facility] 06-19-2021 Procedure note Associated Ord er(s): [place] CONTINUOUS GLUCOSE MONITORING ANALYSIS I&R CGM data showing time in target range 38%, high 40%, very high 22%. GMI = 8.2%. CGM data trends shallow about half of the overnights are within target range, other overnights remaining above target range. We discussed mixed meals as he has frequently having carbohydrate only meals. We also stressed the importance of taking insulin with him if he eats outside of the home which is not currently doing. Discussed ways to increase scan time on rayna device. documented in this encounter [facility] 06-11-2021 History of Present illness Narrative 06/11/21 The patient is a pleasant 70 y.o. male. Chief Complaint Patient presents with Right Ankle - Follow-up Problem with the brace fitting on the right ankle. Rubbing spot and pokes into the leg HPI: He is here with his who provided additional history. He complains of discomfort in the right greater than left leg. He was seen in therapy and the therapist told him his brace was tearing up his leg on the right side. His condition is chronic and not at goal. Histories: Past Medical History: Diagnosis Date TIFF (acute kidney injury) 09/24/2019 DR RAMAN STATES EVERYTHING IS NOW NORMAL Allergic rhinitis Arthritis joints & legs At risk for sleep apnea 04/08/2019 STOPBANG 08/07 ( snores loudly, BP med, BMI > 35, age > 50, Neck size > 16in, male) Atrial enlargement, left 01/26/2018 Mild on echocardiogram BPH (benign prostatic hyperplasia) CAD (Coronary Artery Disease) on CT scan 07/15/2019 Cardiac angina Cataract Depression Essential hypertension, benign H/O colonoscopy 08/24/2013 Hammer toe History of urinary urgency Hypercholesterolemia 03/02/1994 Hyperlipidemia Hyperlipoproteinemia 03/02/1994 LDL Hypersomnia Influenza vaccine refused 11/22/2015 Muscle weakness Obesity Orthopnea 01/07/2018 CONCHITA (obstructive sleep apnea) 06/07/[address] Evgeny Valdez NO significant sleep-related breathing disorder after sleep study 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 Avalos Type II diabetes mellitus, uncontrolled Vaccination refused by patient 11/22/2015 Zoster refused Vitamin D deficiency 03/02/2013 Family History Problem Relation Age of Onset Hypertension Father Lipid Disorder Father high cholesterol Lung Cancer Father Diabetes Sister DM type 2 Social History Tobacco Use Smoking status: Never Smoker Smokeless tobacco: Never Used Vaping Use Vaping Use: Never used Substance Use Topics Alcohol use: Yes Comment: infrequently Drug use: No Past Surgical History: Procedure Laterality Date CYSTOURETHOSCOPY W/ INJECTION FOR CHEMODENERVATION BLADDER N/A 01/15/2021 Laterality: N/A; Surgeon: Terrance Moseley MD; Location: [facility] OR ARTHROTOMY KNEE Right 05/22/2020 Laterality: Right; Surgeon: Adele Matthews MD; Location: [facility] OR ARTHROPLASTY KNEE TOTAL Right 04/16/2020 Laterality: Right; Surgeon: Adele Matthews MD; Location: [facility] OR SLITTING PENIS PREPUCE N/A 04/26/2019 Laterality: N/A; Surgeon: Terrance Moseley MD; Location: [facility] OR PROSTATECTOMY TRANSURETHRAL ELECTROSURGICAL (TURP) N/A 04/26/2019 Laterality: N/A; Surgeon: Terrance Moseley MD; Location: [facility] OR CYSTOURETHROSCOPY W/ URETERAL CATHETERIZATION Bilateral 04/26/2019 Laterality: Bilateral; Surgeon: Terrance Moseley MD; Location: [facility] OR HEART CATHETERIZATION 2019 Dr. Persaud EYE SURGERY Bilateral 01/2018 eyelids raised EXTRACTION EXTRACAPSULAR CATARACT W/ IMPLANT (ECCE IOL) Right 11/10/2016 Laterality: Right; Surgeon: Yimi Maki MD; Location: [facility] OR EXTRACTION EXTRACAPSULAR CATARACT W/ IMPLANT (ECCE IOL) Left 10/27/2016 Laterality: Left; Surgeon: Yimi Maki MD; Location: [facility] OR COLONOSCOPY DIAGNOSTIC 08/24/2013 HERNIA REPAIR 1996 CIRCUMCISION N/A 03 Apr 2019 Past medical history, family history, social history, allergies and medications have been reviewed and are documented in the electronic record. Current Outpatient Medications: betamethasone valerate 0.1 % Cream, Apply 1 Application topically 2 times daily as needed., Disp: , Rfl: Blood Glucose Monitoring Suppl (Blood Glucose Monitor System) w/Device Kit, 1 Each by Unknown route As directed., Disp: 1 kit, Rfl: 0 Calcium Polycarbophil (FIBER-CAPS PO), Take by mouth 2 times daily. ( increased 12/26/20), Disp: , Rfl: calcium-vitamin D 500-200 MG-UNIT tablet, Take 1 tablet by mouth 3 times daily. (Patient taking differently: Take 1 tablet by mouth 2 times daily.), Disp: 90 tablet, Rfl: 11 carbidopa-levodopa 25-100 MG per tablet, Take 1 tablet by mouth 3 times daily., Disp: 90 tablet, Rfl: 11 carveDILOL 6.25 MG tablet, Take 1 tablet by mouth 2 times daily with meals., Disp: 60 tablet, Rfl: 0 clotrimazole 1 % Cream, Apply 1 Application topically 2 times daily for 14 days. Between toes bid, Disp: 60 g, Rfl: 1 Continuous Blood Gluc Ship Purser (FREESTYLE RAYNA 14 DAY READER) Device, 1 Device by Unknown route 4 times daily. To be used with Rayna Sensors, Disp: 1 Device, Rfl: 0 Continuous Blood Gluc Sensor (FreeStyle Rayna 14 Day Sensor) Misc, 1 Each by Unknown route every 14 days. apply to upper arm every 14 days to test blood sugars 4x daily, Disp: 2 Each, Rfl: 4 DISABILITY PLACARD, Disability placard end date 05/30/2024, Disp: 1 Each, Rfl: 0 fluconazole 150 MG tablet, Take 1 tablet by mouth once a week., Disp: 12 tablet, Rfl: 1 furOSEmide 20 MG tablet, Take 1 tablet by mouth daily. Okay to take an extra 20 mg daily for weight gain or swelling., Disp: 120 tablet, Rfl: 3 Glucagon, rDNA, (Glucagon Emergency) 1 MG Kit, To use as directed for severe hypoglycemia, Disp: 1 kit, Rfl: 11 GLUCOSE MONITOR LANCETS PRESCRIPTION, Test blood sugar 4 times per day. Is on insulin therapy., Disp: 120 Container, Rfl: 11 GLUCOSE TEST STRIPS PRESCRIPTION, Test blood sugar 4 times per day. Is on insulin therapy., Disp: 120 Container, Rfl: 11 Icosapent Ethyl (Vascepa) 1 g capsule, Take 2 capsules by mouth 2 times daily. (for high triglycerides), Disp: 360 capsule, Rfl: 3 insulin NPH (NovoLIN N) 100 UNIT/ML injection, 20 units in the morning and at 15 units bedtime, Disp: 1 vial, Rfl: 3 insulin regular (NOVOLIN R) 1 unit/0.01 ml vial, Inject 15 Units under the skin 3 times daily (take before meals)., Disp: 2 vial, Rfl: 2 Insulin Syringe-Needle U-100 (INSULIN SYRINGE .3CC/31GX5/16 ) 31G X 5/16 0.3 ML Misc, To be used with insulin 4 times a day. E11.42, Disp: 150 Each, Rfl: 4 Loratadine 10 MG Tab Dispersible, Take 1 tablet by mouth as needed., Disp: 90 tablet, Rfl: 3 Magnesium 250 MG tablet, Take 250 mg by mouth daily., Disp: , Rfl: Melatonin 5 MG Chew Tab, Chew 1 tablet at bedtime., Disp: 30 tablet, Rfl: 1 metFORMIN 500 MG tablet, Take 2 tablets by mouth 2 times daily with meals., Disp: 360 tablet, Rfl: 1 nitroGLYCERIN 0.4 MG tablet SL, Place 1 tablet under tongue every 5 minutes as needed for Chest pain. max = 3 doses. If CP persists after 3rd dose, call 911, Disp: 25 tablet, Rfl: 3 polyethylene glycol 17 GM/SCOOP Powder powder, Take 17 g by mouth daily as needed for Constipation. ( altered 12/26/20), Disp: , Rfl: Pramipexole Dihydrochloride 0.75 MG tablet, Take 1 tablet by mouth every evening. (for restless leg syndrome), Disp: 90 tablet, Rfl: 3 rosuvastatin 20 MG tablet, Take 1 tablet by mouth at bedtime. For high cholesterol, Disp: 90 tablet, Rfl: 3 triamcinolone 0.1 % Cream cream, Apply topically Twice daily., Disp: , Rfl: venlafaxine 75 MG tablet, Take 1 tablet by mouth 2 times daily., Disp: 180 tablet, Rfl: 3 Vitamin D3 1000 units Tab, Take 1,000 Units by mouth daily. , Disp: , Rfl: Review of Systems Constitutional No fevers, chills or sweats, unintentional weight gain or weight loss, night pain, or night sweats except as per HPI. Cardiovascular No recent chest pain or palpitations. No claudication. No new or worsening lower extremity edema except as per HPI. Respiratory No new or worsening shortness of breath, dyspnea on exertion, orthopnea or paroxysmal nocturnal dyspnea except as per HPI. Gastrointestinal No recent heartburn or stomach upset, no history of ulcers except as per HPI. Musculoskeletal No joint pain, stiffness, or weakness except as per HPI. Endocrine No polyphagia, polydipsia, or polyuria. Hematologic No known or recent anemia, no excessive bleeding. Rheumatologic No history or currently active autoimmune or rheumatologic disease except as per HPI. Integumentary No new or relevant rashes or lesions except as per HPI. Neurologic No numbness, tingling, or weakness into her distal extremities except as per HPI. Genitourinary No new or worsening dysuria, hematuria, urgency, flank pain, or STD except as per HPI. Physical exam Vitals: 06/11/21 1227 Resp: 18 Weight: 124.3 kg (274 lb 0.5 oz) Height: 1.829 m (6' 0.01 ) Body mass index is 37.16 kg/m . On examination patient is alert, oriented, pleasant and cooperative. Neurologic and vascular examination intact. Capillary refill is normal. Skin moisture, texture and temperature is normal. There is no adenopathy present. No shortness of breath. No vision or hearing deficit. He has band-aids over several areas of his skin in the right lower extremity, one well above the brace laterally, the other in the medial side on the area above the ankle underneath the air cast brace. He has grade 1 pitting edema in the lower extremities. He has MAST trousers at home to use to counteract this. I removed his sock and the brace and there is no sign of cellulitis. His sock is thin and does not go up to the level of the brace. The brace at the top then is putting pressure and indenting his skin. Patient Active Problem List Diagnosis Obesity Allergic rhinitis Type 1 diabetes mellitus with other specified complication Hypercholesterolemia RLS (restless legs syndrome) Vitamin D deficiency Periodic limb movement disorder Diabetic Polyneuropathy Pes planus Hypertension, essential Other motor neuron disease Hypersomnia BPH (benign prostatic hyperplasia) Hammer toe Cervical radiculopathy Chronic neck pain Impingement syndrome of left shoulder Depression, recurrent-moderate Edema, localized to the legs Orthopnea Wheezing Shortness of breath Venous stasis ulcer limited to breakdown of skin without varicose veins Bloating Hypertensive heart disease without heart failure Atrial enlargement, left Aortic valve sclerosis Pulmonary hypertension Pericardial effusion Ptosis, paralytic of bilateral eyelids Venous insufficiency Restrictive lung disease Neuropathic pain Osteoarthritis of left knee, primarily Fracture shaft of right FIBULA, traumatic, Closed nondisplaced transverse Osteoarthritis of right knee, primary-severe Recurrent falls Unstable angina Atrial Fibrillation, NOS Abnormal cardiovascular function Benign prostatic hyperplasia with urinary obstruction Urge incontinence Phimosis CONCHITA (obstructive sleep apnea) Reactive airway disease without complication Diastolic heart disease-chronic with failure CAD (Coronary Artery Disease) on CT scan CANCER-Adenocarcinoma of prostate, stage 1 Metabolic encephalopathy Hypertriglyceridemia S/P TKR (total knee replacement), right Diabetic polyneuropathy associated with type 2 diabetes mellitus Obesity (BMI 35-39.9) Osteoarthritis Constipation, chronic-idiopathic Parkinson's disease Dermatophytosis of nail Osteopenia Assessment: 1. Status post right total knee. 2. Left knee osteoarthritis. 3. Elevated BMI. 4. Peripheral edema. 5. Hammertoe. 6. Cervical radiculopathy. 7. Impingement left shoulder. 8. Osteopenia by DEXA scan. 9. Right knee surgery 04/16/20 with removal of foreign body 05/22/20. 10. Iliotibial band tendonitis about the right knee, resolving well. 11. Acute fracture distal fibula right side, date of injury 04/09/21, fall in the home. 12. Knee effusion right. 13. Cellulitis recurrence right tibia. 14. Sulfa allergy. 15. Hand osteoarthritis left metacarpophalangeal joints, index and long. Plan: Consultation with Dr. Persaud to see if there is an alternative to the MAST trousers he is using without success. Discontinue the ankle brace until the skin heals completely. Continue follow up with Dr. Kelley who is treating him with antibiotics and had to discontinue the penicillin due to hives. He should wear a thick, white athletic sock to cover the entire skin so there is no direct contact with the brace to the skin. Follow up arranged. We discussed the natural history of this problem and usual treatments. We discussed possible treatment options including conservative, aggressive, invasive and non-invasive. These options were explained in detail. The patient and/or guardian agreed with the above assessment and plan. Differential diagnoses were considered including but not limited to degenerative change, internal derangement, fracture and any other severely limiting injury. documented in this encounter [facility] 05-29-2021 History of Present illness Narrative 05/29/21 The patient is a pleasant 70 y.o. male. Chief Complaint Patient presents with Right Lower Leg - Pain, Follow-up Right Ankle - Pain, Follow-up Right Knee - Pain, Follow-up HPI: He is here with his who provided additional history. He has a new problem with pain in his hand in the metacarpophalangeal joints of the index and long fingers on the left side. His condition is chronic and not at goal. He also has discomfort in his right ankle with instability. He is wearing a boot brace. When sitting some nights, he has to take the boot off due to swelling and sensation of electrical shock in the right ankle into the big toe of the right foot. His right knee feels like it is swollen and may have fluid again. Histories: Past Medical History: Diagnosis Date TIFF (acute kidney injury) 09/24/2019 DR RAMAN STATES EVERYTHING IS NOW NORMAL Allergic rhinitis Arthritis joints & legs At risk for sleep apnea 04/08/2019 STOPBANG 08/07 ( snores loudly, BP med, BMI > 35, age > 50, Neck size > 16in, male) Atrial enlargement, left 01/26/2018 Mild on echocardiogram BPH (benign prostatic hyperplasia) CAD (Coronary Artery Disease) on CT scan 07/15/2019 Cardiac angina Cataract Depression Essential hypertension, benign H/O colonoscopy 08/24/2013 Hammer toe History of urinary urgency Hypercholesterolemia 03/02/1994 Hyperlipidemia Hyperlipoproteinemia 03/02/1994 LDL Hypersomnia Influenza vaccine refused 11/22/2015 Muscle weakness Obesity Orthopnea 01/07/2018 CONCHITA (obstructive sleep apnea) 06/07/[address] Evgeny Valdez NO significant sleep-related breathing disorder after sleep study 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 Avalos Type II diabetes mellitus, uncontrolled Vaccination refused by patient 11/22/2015 Zoster refused Vitamin D deficiency 03/02/2013 Family History Problem Relation Age of Onset Hypertension Father Lipid Disorder Father high cholesterol Lung Cancer Father Diabetes Sister DM type 2 Social History Tobacco Use Smoking status: Never Smoker Smokeless tobacco: Never Used Vaping Use Vaping Use: Never used Substance Use Topics Alcohol use: Yes Comment: infrequently Drug use: No Past Surgical History: Procedure Laterality Date CYSTOURETHOSCOPY W/ INJECTION FOR CHEMODENERVATION BLADDER N/A 01/15/2021 Laterality: N/A; Surgeon: Terrance Moseley MD; Location: [facility] ARTHROTOMY KNEE Right 05/22/2020 Laterality: Right; Surgeon: Adele Matthews MD; Location: [facility] OR ARTHROPLASTY KNEE TOTAL Right 04/16/2020 Laterality: Right; Surgeon: Adele Matthews MD; Location: [facility] OR SLITTING PENIS PREPUCE N/A 04/26/2019 Laterality: N/A; Surgeon: Terrance Moseley MD; Location: [facility] OR PROSTATECTOMY TRANSURETHRAL ELECTROSURGICAL (TURP) N/A 04/26/2019 Laterality: N/A; Surgeon: Terrance Moseley MD; Location: [facility] OR CYSTOURETHROSCOPY W/ URETERAL CATHETERIZATION Bilateral 04/26/2019 Laterality: Bilateral; Surgeon: Terrance Moseley MD; Location: [facility] OR HEART CATHETERIZATION 2019 Dr. Persaud EYE SURGERY Bilateral 01/2018 eyelids raised EXTRACTION EXTRACAPSULAR CATARACT W/ IMPLANT (ECCE IOL) Right 11/10/2016 Laterality: Right; Surgeon: Yimi Maki MD; Location: [facility] OR EXTRACTION EXTRACAPSULAR CATARACT W/ IMPLANT (ECCE IOL) Left 10/27/2016 Laterality: Left; Surgeon: Yimi Maki MD; Location: [facility] OR COLONOSCOPY DIAGNOSTIC 08/24/2013 HERNIA REPAIR 1996 CIRCUMCISION N/A 03 Apr 2019 Past medical history, family history, social history, allergies and medications have been reviewed and are documented in the electronic record. Current Outpatient Medications: betamethasone valerate 0.1 % Cream, Apply 1 Application topically 2 times daily as needed., Disp: , Rfl: Blood Glucose Monitoring Suppl (Blood Glucose Monitor System) w/Device Kit, 1 Each by Unknown route As directed., Disp: 1 kit, Rfl: 0 Calcium Polycarbophil (FIBER-CAPS PO), Take by mouth 2 times daily. ( increased 12/26/20), Disp: , Rfl: calcium-vitamin D 500-200 MG-UNIT tablet, Take 1 tablet by mouth 3 times daily. (Patient taking differently: Take 1 tablet by mouth 2 times daily.), Disp: 90 tablet, Rfl: 11 carbidopa-levodopa 25-100 MG per tablet, Take 1 tablet by mouth 3 times daily., Disp: 90 tablet, Rfl: 11 carveDILOL 6.25 MG tablet, Take 1 tablet by mouth 2 times daily with meals., Disp: 60 tablet, Rfl: 0 Continuous Blood Gluc Ship Purser (FREESTYLE RAYNA 14 DAY READER) Device, 1 Device by Unknown route 4 times daily. To be used with Rayna Sensors, Disp: 1 Device, Rfl: 0 Continuous Blood Gluc Sensor (FreeStyle Rayna 14 Day Sensor) Misc, 1 Each by Unknown route every 14 days. apply to upper arm every 14 days to test blood sugars 4x daily, Disp: 2 Each, Rfl: 4 DISABILITY PLACARD, Disability placard end date 05/30/2024, Disp: 1 Each, Rfl: 0 fluconazole 150 MG tablet, Take 1 tablet by mouth once a week., Disp: 12 tablet, Rfl: 1 furOSEmide 20 MG tablet, Take 1 tablet by mouth daily. Okay to take an extra 20 mg daily for weight gain or swelling., Disp: 120 tablet, Rfl: 3 Glucagon, rDNA, (Glucagon Emergency) 1 MG Kit, To use as directed for severe hypoglycemia, Disp: 1 kit, Rfl: 11 GLUCOSE MONITOR LANCETS PRESCRIPTION, Test blood sugar 4 times per day. Is on insulin therapy., Disp: 120 Container, Rfl: 11 GLUCOSE TEST STRIPS PRESCRIPTION, Test blood sugar 4 times per day. Is on insulin therapy., Disp: 120 Container, Rfl: 11 Icosapent Ethyl (Vascepa) 1 g capsule, Take 2 capsules by mouth 2 times daily. (for high triglycerides), Disp: 360 capsule, Rfl: 3 insulin NPH (NovoLIN N) 100 UNIT/ML injection, 20 units in the morning and at 15 units bedtime, Disp: 1 vial, Rfl: 3 insulin regular (NOVOLIN R) 1 unit/0.01 ml vial, Inject 15 Units under the skin 3 times daily (take before meals)., Disp: 2 vial, Rfl: 2 Insulin Syringe-Needle U-100 (INSULIN SYRINGE .3CC/31GX5/16 ) 31G X 5/16 0.3 ML Misc, To be used with insulin 4 times a day. E11.42, Disp: 150 Each, Rfl: 4 Loratadine 10 MG Tab Dispersible, Take 1 tablet by mouth as needed., Disp: 90 tablet, Rfl: 3 Magnesium 250 MG tablet, Take 250 mg by mouth daily., Disp: , Rfl: Melatonin 5 MG Chew Tab, Chew 1 tablet at bedtime., Disp: 30 tablet, Rfl: 1 metFORMIN 500 MG tablet, Take 2 tablets by mouth 2 times daily with meals., Disp: 360 tablet, Rfl: 1 nitroGLYCERIN 0.4 MG tablet SL, Place 1 tablet under tongue every 5 minutes as needed for Chest pain. max = 3 doses. If CP persists after 3rd dose, call 911, Disp: 25 tablet, Rfl: 3 penicillin v potassium 500 MG tablet, Take 1 tablet by mouth 2 times daily., Disp: 60 tablet, Rfl: 0 polyethylene glycol 17 GM/SCOOP Powder powder, Take 17 g by mouth daily as needed for Constipation. ( altered 12/26/20), Disp: , Rfl: Pramipexole Dihydrochloride 0.75 MG tablet, Take 1 tablet by mouth every evening. (for restless leg syndrome), Disp: 90 tablet, Rfl: 3 rosuvastatin 20 MG tablet, Take 1 tablet by mouth at bedtime. For high cholesterol, Disp: 90 tablet, Rfl: 3 triamcinolone 0.1 % Cream cream, Apply topically Twice daily., Disp: , Rfl: venlafaxine 75 MG tablet, Take 1 tablet by mouth 2 times daily., Disp: 180 tablet, Rfl: 3 Vitamin D3 1000 units Tab, Take 1,000 Units by mouth daily. , Disp: , Rfl: Review of Systems Constitutional No fevers, chills or sweats, unintentional weight gain or weight loss, night pain, or night sweats except as per HPI. Cardiovascular No recent chest pain or palpitations. No claudication. No new or worsening lower extremity edema except as per HPI. Respiratory No new or worsening shortness of breath, dyspnea on exertion, orthopnea or paroxysmal nocturnal dyspnea except as per HPI. Gastrointestinal No recent heartburn or stomach upset, no history of ulcers except as per HPI. Musculoskeletal No joint pain, stiffness, or weakness except as per HPI. Endocrine No polyphagia, polydipsia, or polyuria. Hematologic No known or recent anemia, no excessive bleeding. Rheumatologic No history or currently active autoimmune or rheumatologic disease except as per HPI. Integumentary No new or relevant rashes or lesions except as per HPI. Neurologic No numbness, tingling, or weakness into her distal extremities except as per HPI. Genitourinary No new or worsening dysuria, hematuria, urgency, flank pain, or STD except as per HPI. Physical exam Vitals: 05/29/21 0929 Resp: 14 Weight: 122.9 kg (270 lb 15.1 oz) Height: 1.829 m (6' 0.01 ) Body mass index is 36.74 kg/m . On examination patient is alert, oriented, pleasant and cooperative. Neurologic and vascular examination intact. Skin moisture, texture and temperature is normal. There is no adenopathy present. No shortness of breath. No vision or hearing deficit. Capillary refill is slow in the feet. Feet are arm. No pressure sores or dysvascular lesions. His pulse ox reads 0 in all of his toes. His hand pulse ox in the index fingers bilateral is 95. He walks with a boot brace on the right lower extremity. He has resolution of the cellulitis in the right lower extremity. I reviewed Dr. Kelley's note regarding this. She is changing him to penicillin. He has grade 1 pitting edema in the bilateral lower extremities. Review of Images: X-ray left hand shows metacarpophalangeal joint osteoarthritis at the index and long fingers of the left hand on AP, lateral and oblique views today. Patient Active Problem List Diagnosis Obesity Allergic rhinitis Type 1 diabetes mellitus with other specified complication Hypercholesterolemia RLS (restless legs syndrome) Vitamin D deficiency Periodic limb movement disorder Diabetic Polyneuropathy Pes planus Hypertension, essential Other motor neuron disease Hypersomnia BPH (benign prostatic hyperplasia) Hammer toe Cervical radiculopathy Chronic neck pain Impingement syndrome of left shoulder Depression, recurrent-moderate Edema, localized to the legs Orthopnea Wheezing Shortness of breath Venous stasis ulcer limited to breakdown of skin without varicose veins Bloating Hypertensive heart disease without heart failure Atrial enlargement, left Aortic valve sclerosis Pulmonary hypertension Pericardial effusion Ptosis, paralytic of bilateral eyelids Venous insufficiency Restrictive lung disease Neuropathic pain Osteoarthritis of left knee, primarily Fracture shaft of right FIBULA, traumatic, Closed nondisplaced transverse Osteoarthritis of right knee, primary-severe Recurrent falls Unstable angina Atrial Fibrillation, NOS Abnormal cardiovascular function Benign prostatic hyperplasia with urinary obstruction Urge incontinence Phimosis CONCHITA (obstructive sleep apnea) Reactive airway disease without complication Diastolic heart disease-chronic with failure CAD (Coronary Artery Disease) on CT scan CANCER-Adenocarcinoma of prostate, stage 1 Metabolic encephalopathy Hypertriglyceridemia S/P TKR (total knee replacement), right Diabetic polyneuropathy associated with type 2 diabetes mellitus Obesity (BMI 35-39.9) Osteoarthritis Constipation, chronic-idiopathic Parkinson's disease Dermatophytosis of nail Osteopenia Assessment: 1. Status post right total knee. 2. Left knee osteoarthritis. 3. Elevated BMI. 4. Peripheral edema. 5. Hammertoe. 6. Cervical radiculopathy. 7. Impingement left shoulder. 8. Osteopenia by DEXA scan. 9. Right knee surgery 04/16/20 with removal of foreign body 05/22/20. 10. Iliotibial band tendonitis about the right knee, resolving well. 11. Acute fracture distal fibula right side, date of injury 04/09/21, fall in the home. 12. Knee effusion right. 13. Cellulitis recurrence right tibia. 14. Sulfa allergy. 15. Hand osteoarthritis left metacarpophalangeal joints, index and long. Plan: Physical therapy. BAPS board strengthening right ankle. Air cast stirrup brace offered since he complains of cumbersome boot. Left hand deep heat paraffin. Lab work reviewed from his fluid aspiration of the right knee on 05/07/21 and showed no evidence of infection. No growth at 6 days was noted. There was no crystal result reported. Await crystal result from his knee fluid. He prefers to use the ankle air cast stirrup brace and he may drive with it on. Home exercise teaching quadriceps strengthening reviewed for both knees 15 minutes. He demonstrated understanding and is to do this 4 times a day. He will follow up at the time of his choice and consider steroid injections for the metacarpophalangeal joints of the left index and long fingers if needed. We discussed the natural history of this problem and usual treatments. We discussed possible treatment options including conservative, aggressive, invasive and non-invasive. These options were explained in detail. The patient and/or guardian agreed with the above assessment and plan. Differential diagnoses were considered including but not limited to degenerative change, internal derangement, fracture and any other severely limiting injury. documented in this encounter [facility] 05-27-2021 Instructions Natalie Moreno MD - 05/27/2021 9:40 AM EDT Go get blood work for Dr. Matthews from 05/07 and mine released from January --needs 5 tests all together. Try your CPAPwith naps and first part of the night until your urination pattern kicks in. You will live longer and better if you use it. Mild Cognitive impairment is your current diagnosis. Maximize your health and other diseases to help prevent further cognitive problems. Use of your hearing aides will also help protect your brain and utilize all parts of your brain better. documented in this encounter [facility] 05-27-2021 History of Present illness Narrative Pt is here to follow up on geriatrics. He is sleeping somewhat better, he is getting 4-8 hours of sleep at night. Pt is not using his CPAP at night. Pt is in a walking boot, he is seeing Dr. Matthews. He had a fall at home late April and re cracked his ankle from a fall several years ago. Review of Systems Constitutional: Positive for fatigue. Gastrointestinal: Negative for constipation and diarrhea. Musculoskeletal: Positive for gait problem. Neurological: Positive for dizziness and headaches. Negative for seizures. Psychiatric/Behavioral: Positive for sleep disturbance. Negative for behavioral problems. Deepa Abraham is accompanied in the office by his . In 9:26 Overall they are doing well. Updates include: none. Tolerating current medicatons, eating well, weight stable.Pt is here to follow up on geriatrics. He is sleeping somewhat better, he is getting 4-8 hours of sleep at night. Pt is not using his CPAP at night. Pt is in a walking boot, he is seeing Dr. Matthews. He had a fall at home late April and re cracked his ankle from a fall several years ago. He states he is not wanting to use his CPAP--further education provided to him and his about the health benefits and help to avoid further loss of memory from poor oxygen. He did not get his labs drawn after last visit and has other labs from ortho pending in the computer, he is reminded to go get them drawn. Review of Systems Constitutional: Positive for fatigue. Gastrointestinal: Negative for constipation and diarrhea. Musculoskeletal: Positive for gait problem. Neurological: Positive for dizziness and headaches. Negative for seizures. Psychiatric/Behavioral: Positive for sleep disturbance. Negative for behavioral problems. Current Outpatient Medications Medication Sig betamethasone valerate 0.1 % Cream Apply 1 Application topically 2 times daily as needed. Blood Glucose Monitoring Suppl (Blood Glucose Monitor System) w/Device Kit 1 Each by Unknown route As directed. Calcium Polycarbophil (FIBER-CAPS PO) Take by mouth 2 times daily. ( increased 12/26/20) calcium-vitamin D 500-200 MG-UNIT tablet Take 1 tablet by mouth 3 times daily. (Patient taking differently: Take 1 tablet by mouth 2 times daily.) carbidopa-levodopa 25-100 MG per tablet Take 1 tablet by mouth 3 times daily. carveDILOL 6.25 MG tablet Take 1 tablet by mouth 2 times daily with meals. Continuous Blood Gluc Ship Purser (FREESTYLE RAYNA 14 DAY READER) Device 1 Device by Unknown route 4 times daily. To be used with Rayna Sensors Continuous Blood Gluc Sensor (FreeStyle Rayna 14 Day Sensor) Misc 1 Each by Unknown route every 14 days. apply to upper arm every 14 days to test blood sugars 4x daily DISABILITY PLACARD Disability placard end date 05/30/2024 fluconazole 150 MG tablet Take 1 tablet by mouth once a week. furOSEmide 20 MG tablet Take 1 tablet by mouth daily. Okay to take an extra 20 mg daily for weight gain or swelling. Glucagon, rDNA, (Glucagon Emergency) 1 MG Kit To use as directed for severe hypoglycemia GLUCOSE MONITOR LANCETS PRESCRIPTION Test blood sugar 4 times per day. Is on insulin therapy. GLUCOSE TEST STRIPS PRESCRIPTION Test blood sugar 4 times per day. Is on insulin therapy. Icosapent Ethyl (Vascepa) 1 g capsule Take 2 capsules by mouth 2 times daily. (for high triglycerides) insulin NPH (NovoLIN N) 100 UNIT/ML injection 20 units in the morning and at 15 units bedtime insulin regular (NOVOLIN R) 1 unit/0.01 ml vial Inject 15 Units under the skin 3 times daily (take before meals). Insulin Syringe-Needle U-100 (INSULIN SYRINGE .3CC/31GX5/16 ) 31G X 5/16 0.3 ML Misc To be used with insulin 4 times a day. E11.42 Loratadine 10 MG Tab Dispersible Take 1 tablet by mouth as needed. Magnesium 250 MG tablet Take 250 mg by mouth daily. Melatonin 5 MG Chew Tab Chew 1 tablet at bedtime. metFORMIN 500 MG tablet Take 2 tablets by mouth 2 times daily with meals. nitroGLYCERIN 0.[address] 1 tablet under tongue every 5 minutes as needed for Chest pain. max = 3 doses. If CP persists after 3rd dose, call 911 penicillin v potassium 500 MG tablet Take 1 tablet by mouth 2 times daily. polyethylene glycol 17 GM/SCOOP Powder powder Take 17 g by mouth daily as needed for Constipation. ( altered 12/26/20) Pramipexole Dihydrochloride 0.75 MG tablet Take 1 tablet by mouth every evening. (for restless leg syndrome) rosuvastatin 20 MG tablet Take 1 tablet by mouth at bedtime. For high cholesterol triamcinolone 0.1 % Cream cream Apply topically Twice daily. venlafaxine 75 MG tablet Take 1 tablet by mouth 2 times daily. Vitamin D3 1000 units Tab Take 1,000 Units by mouth daily. Past History Past medical, surgical, family, and social histories have been reviewed and updated with the patient today and are located elsewhere in the medical record. Appointment on 05/27/2021 Component Date Value Ref Range Status C-REACTIVE PROTEIN 05/27/2021 9.1 0 - 10 MG/L Final SEDIMENTATION RATE AUTOMATED 05/27/2021 35 (A) 0 - 20 MM/HR Final GLUCOSE 05/27/2021 245 (A) 70 - 100 MG/DL Final Comment: NORMAL <100 mg/dL PREDIABETES 101-126 mg/dL DIABETES 126 mg/dL or higher BUN 05/27/2021 24 (A) 7 - 20 MG/DL Final CREATININE SERUM 05/27/2021 1.06 0.7 - 1.2 MG/DL Final SODIUM 05/27/2021 136 (A) 137 - 145 MMOL/L Final POTASSIUM 05/27/2021 4.4 3.5 - 5.1 MMOL/L Final CHLORIDE 05/27/2021 98 98 - 107 MMOL/L Final Please note: Triglyceride levels of 600mg/dL or higher may positively bias chloride results by approximately 2.1 mmol CALCIUM 05/27/2021 9.5 8.4 - 10.2 MG/DL Final PROTEIN, TOTAL 05/27/2021 7.5 6.3 - 8.2 GM/DL Final ALBUMIN 05/27/2021 4.7 3.5 - 5.0 G/dl Final BILIRUBIN, TOTAL 05/27/2021 0.7 0.2 - 1.3 MG/DL Final AST 05/27/2021 18 17 - 59 IU/L Final ALKALINE PHOSPHATASE 05/27/2021 109 38 - 126 IU/L Final CARBON DIOXIDE (CO2) 05/27/2021 29 22 - 30 MMOL/L Final A/G Ratio 05/27/2021 1.7 1.3 - 2.2 RATIO Final ALT 05/27/2021 8 <50 IU/L Final ESTIMATED GFR, NON AMER 05/27/2021 73 ml/min/1.73sq.m Final ESTIMATED GFR, 05/27/2021 89 ml/min/1.73sq.m Final GFR COMMENT 05/27/2021 Average GFR for 70+ years old = 75. Final Comment: Chronic Kidney disease, GFR = <60. Kidney failure, GFR = <15. The GFR estimate is not adjusted for extreme body surface area or acute process, nor has it been validated for women or ethnic groups other than and . WBC (WHITE BLOOD COUNT) 05/27/2021 7.6 3.6 - 11.0 10*3/uL Final RBC 05/27/2021 5.42 4.0 - 6.1 10*6/uL Final HEMOGLOBIN (HGB) 05/27/2021 14.8 14.0 - 18.0 G/DL Final HEMATOCRIT (HCT) 05/27/2021 43.0 42.0 - 52.0 % Final MEAN CELL VOLUME 05/27/2021 79.4 (A) 80.0 - 100.0 FL Final Mean Cell HGB 05/27/2021 27.3 26.0 - 35.0 PG Final MEAN CELL HGB CONCENTRATION 05/27/2021 34.4 27.0 - 37.0 G/DL Final RBC DISTRIBUTION 05/27/2021 14.7 (A) 11.5 - 14.5 % Final PLATELET COUNT 05/27/2021 223 130.0 - 400.0 10*3/uL Final MEAN PLATELET VOLUME 05/27/2021 6.7 (A) 7.4 - 11.0 FL Final TSH, Reflex FT4 05/27/2021 2.860 0.46 - 4.68 uIU/ML Final VITAMIN B12 05/27/2021 296 239 - 931 PG/ML Final FOLATE 05/27/2021 15.0 2.56 - 20.0 NG/ML Final CREATININE, MG/DL, URINE 05/27/2021 37.6 MG/DL Final NO NORMAL VALUES ESTABLISHED FOR RANDOM SPECIMENS MICROALBUMIN URINE RANDOM 05/27/2021 13.9 0 - 16.7 mg/L Final MICROALBUMIN/CREATININE RATIO 05/27/2021 37.0 (A) 1.3 - 30.0 mg MALB/g CREAT Final Office Visit on 05/07/2021 Component Date Value Ref Range Status BSA 05/07/2021 2.43 m2 In process BSA 05/07/2021 2.43 m2 In process BSA 05/07/2021 2.43 m2 In process SPECIMEN DESCRIPTION 05/07/2021 SYNOVIAL FLUID Final COMMENT 05/07/2021 RIGHT KNEE Final GRAM STAIN 05/07/2021 NO ORGANISMS SEEN Final RESULT-CULT 05/07/2021 NO GROWTH 20 DAYS Final Testing performed at [place], [place] [address] REPORT STATUS 05/07/2021 PENDING Incomplete FLUID TYPE 05/07/2021 SYNOVIAL FLUID Final GROSS APPEARANCE, FLUID 05/07/2021 PINK Final Body Fluid Color 05/07/2021 CLOUDY Final Synovial WBC 05/07/2021 290 (A) 0 - 200 /CMM Final Synovial RBC 05/07/2021 33,857.00 (A) 0 - 2,000 /CMM Final FLUID NEUTROPHILS 05/07/2021 52 (A) 0 - 24 % Final LYMPHS, FLUID 05/07/2021 28 % Final Monocytes/Macrophages, Fluid 05/07/2021 14 % Final SYNOVIAL LINING CELLS, FLUID 05/07/2021 2 % Final EOSINOPHILS, FLUID 05/07/2021 4 % Final BASOPHILS, FLUID 05/07/2021 0 % Final Office Visit on 05/03/2021 Component Date Value Ref Range Status POCT APPEARANCE, URINE 05/03/2021 clear Final POCT COLOR, URINE 05/03/2021 yellow Final POCT GLUCOSE, URINE 05/03/2021 100 mg/dL Final POCT BILIRUBIN, URINE 05/03/2021 neg Final POCT KETONES, URINE 05/03/2021 neg mg/dL Final POCT SPECIFIC GRAVITY, URINE 05/03/2021 1.020 1.001 - 1.035 Final POCT BLOOD, URINE 05/03/2021 neg Final POCT PH, URINE 05/03/2021 5.5 5 - 7 Final POCT PROTEIN, URINE 05/03/2021 neg mg/dL Final POCT UROBILINOGEN, URINE 05/03/2021 1.0 0 - 2 E.U./dL Final POCT NITRITE, URINE 05/03/2021 neg Final POCT LEUKOCYTE, URINE 05/03/2021 trace Final Appointment on 03/19/2021 Component Date Value Ref Range Status HEMOGLOBIN A1C 03/19/2021 8.4 (A) 0 - 6 % Final Comment: NORMAL <5.7% PREDIABETES 5.7-6.4% DIABETES 6.5% OR HIGHER Estimated Average Glucose 03/19/2021 194 mg/dL Final GLUCOSE 03/19/2021 195 (A) 70 - 100 MG/DL Final Comment: NORMAL <100 mg/dL PREDIABETES 101-126 mg/dL DIABETES 126 mg/dL or higher BUN 03/19/2021 21 (A) 7 - 20 MG/DL Final CREATININE SERUM 03/19/2021 0.93 0.7 - 1.2 MG/DL Final SODIUM 03/19/2021 140 137 - 145 MMOL/L Final POTASSIUM 03/19/2021 4.2 3.5 - 5.1 MMOL/L Final CHLORIDE 03/19/2021 103 98 - 107 MMOL/L Final Please note: Triglyceride levels of 600mg/dL or higher may positively bias chloride results by approximately 2.1 mmol CALCIUM 03/19/2021 9.3 8.4 - 10.2 MG/DL Final PROTEIN, TOTAL 03/19/2021 6.9 6.3 - 8.2 GM/DL Final ALBUMIN 03/19/2021 4.3 3.5 - 5.0 G/dl Final BILIRUBIN, TOTAL 03/19/2021 0.7 0.2 - 1.3 MG/DL Final AST 03/19/2021 14 (A) 17 - 59 IU/L Final ALKALINE PHOSPHATASE 03/19/2021 101 38 - 126 IU/L Final CARBON DIOXIDE (CO2) 03/19/2021 25 22 - 30 MMOL/L Final A/G Ratio 03/19/2021 1.7 1.3 - 2.2 RATIO Final ALT 03/19/2021 5 <50 IU/L Final ESTIMATED GFR, NON AMER 03/19/2021 >60 ml/min/1.73sq.m Final ESTIMATED GFR, 03/19/2021 >60 ml/min/1.73sq.m Final GFR COMMENT 03/19/2021 Average GFR for 70+ years old = 75. Final Comment: Chronic Kidney disease, GFR = <60. Kidney failure, GFR = <15. The GFR estimate is not adjusted for extreme body surface area or acute process, nor has it been validated for women or ethnic groups other than and . WBC (WHITE BLOOD COUNT) 03/19/2021 6.2 3.6 - 11.0 10*3/uL Final RBC 03/19/2021 5.02 4.0 - 6.1 10*6/uL Final HEMOGLOBIN (HGB) 03/19/2021 13.6 (A) 14.0 - 18.0 G/DL Final HEMATOCRIT (HCT) 03/19/2021 40.5 (A) 42.0 - 52.0 % Final MEAN CELL VOLUME 03/19/2021 80.7 80.0 - 100.0 FL Final Mean Cell HGB 03/19/2021 27.2 26.0 - 35.0 PG Final MEAN CELL HGB CONCENTRATION 03/19/2021 33.7 27.0 - 37.0 G/DL Final RBC DISTRIBUTION 03/19/2021 14.8 (A) 11.5 - 14.5 % Final PLATELET COUNT 03/19/2021 234 130.0 - 400.0 10*3/uL Final MEAN PLATELET VOLUME 03/19/2021 6.7 (A) 7.4 - 11.0 FL Final CREATININE, MG/DL, URINE 03/19/2021 128.9 MG/DL Final NO NORMAL VALUES ESTABLISHED FOR RANDOM SPECIMENS MICROALBUMIN URINE RANDOM 03/19/2021 89.4 (A) 0 - 16.7 mg/L Final MICROALBUMIN/CREATININE RATIO 03/19/2021 69.4 (A) 1.3 - 30.0 mg MALB/g CREAT Final Lab Encounter on 03/08/2021 Component Date Value Ref Range Status SARS COV 2 RNA, QL REAL TIME RT PCR 03/08/2021 NOT DETECTED NOT DETECTED Final Comment: Negative results do not preclude SARS-CoV-2 infection and should not be used as the sole basis for treatment or other patient management decisions. Optimum specimen types and timing for peak viral levels during infections caused by SARS-CoV-2 has not been determined. The possibility of a false negative result should especially be considered if the patient's recent exposures or clinical presentation suggest that SARS-CoV-2 infection is probable, and diagnostic tests for other causes of illness (e.g., other respiratory illness) are negative. Collection of a new specimen and re-testing may be necessary if the patient is critically ill or clinically deteriorating. NARRATIVE -1 03/08/2021 This test was performed using isothermal [employer] and has been approved as Emergency Use Authorization (EUA) for the qualitative detection [id number] nucleic acid. Final Office Visit on 02/28/2021 Component Date Value Ref Range Status POCT APPEARANCE, URINE 02/28/2021 clear Final POCT COLOR, URINE 02/28/2021 orange Final POCT GLUCOSE, URINE 02/28/2021 100 mg/dL Final POCT BILIRUBIN, URINE 02/28/2021 small Final POCT KETONES, URINE 02/28/2021 trace mg/dL Final POCT SPECIFIC GRAVITY, URINE 02/28/2021 >=1.030 1.001 - 1.035 Final POCT BLOOD, URINE 02/28/2021 neg Final POCT PH, URINE 02/28/2021 5.0 5 - 7 Final POCT PROTEIN, URINE 02/28/2021 100 mg/dL Final POCT UROBILINOGEN, URINE 02/28/2021 2.0 0 - 2 E.U./dL Final POCT NITRITE, URINE 02/28/2021 positive Final POCT LEUKOCYTE, URINE 02/28/2021 neg Final VITAL SIGNS: Blood pressure 142/68, pulse 90, temperature 97.6 F (36.4 C), temperature source Temporal, weight 123.2 kg (271 lb 9.6 oz), SpO2 92 %. Wt Readings from Last 3 Encounters: 05/27/21 122.9 kg (271 lb) 05/27/21 123.2 kg (271 lb 9.6 oz) 05/21/21 124.6 kg (274 lb 9.6 oz) Physical Exam Psychiatric: Comments: on MMSE Assessment and plan: Mild cognitive Impairment: Discussed that he has the risk factors for memory issues to worsen due to poorly controlled diabetes, sedentary lifestyle, CONCHITA with refusal to use the CPAP and Parkinson's disease which places him at risk for Lewy-body dementia. Conversion of MCI to dementia is a 15% per year risk. Problem List Items Addressed This Visit None Visit Diagnoses Mild cognitive impairment - Primary Mediterranean diet choices, more exercise of brain and body encouraged. Use of CPAP emphasized. F/Up in 1 year and as needed. Out 10:03, charting after hours of 11 minutes more=48 minutes total spent with patient and charting today Patient was advised to call with any questions or concerns and review the Patient Instructions. Call if problems or symptoms worsen. Patient was advised to follow up in our office or the Emergency Dept if concerned. Benefits, Risks, Contraindications, and Complications of recommended treatments were explained the patient and/or family understands and agrees to proceed with plan as outlined above. Natalie Moreno MD 05/27/2021 documented in this encounter [facility] 01-02-2021 History of Present illness Narrative This note is in progress. Deepa Abraham is a 70 y.o. male who presents for Chief Complaint Skin Lesion Dictation on: 01/02/2021 11:37 AM by: SILVERIO NGUYEN [[id number]] History reviewed. No pertinent past medical history. Past Medical History Pertinent Negatives: Diagnosis Date Noted Basal cell carcinoma 08/01/2020 Melanoma (HCC) 08/01/2020 Squamous cell skin cancer 08/01/2020 Family History Cancer-related family history is not on file. Review of Systems Constitutional: Malaise: No Skin: Other new or changing growths on skin: No Physical Examination Physical Exam The following areas were within normal limits except as noted otherwise in this note: Upper body: Oriented x 3/ alert; development/nourishment; mood/affect; scalp/hair; face; eyes/eyelids; lips; neck; digits/nails; right arm; left arm; chest; abdomen; back. Pertinent positive PE findings can be found below Assessment and Plan Silverio Nguyen DO 01/02/2021 documented in this encounter [facility] 10-14-2020 Hospital Discharge instructions Sukumar Roberts DO - 10/14/2020 Thank you for allowing us to be involved in your care today. Please follow up as discussed during your stay. This information is included in your discharge paperwork. Appropriate follow up is essential in your continued care after today's visit. If you had any diagnostic studies (Labs, X-rays, CT-scan , Ultrasound or Cultures) have your Primary Care Physician (PCP) review them with you since there may be results that require further follow up or investigation. Return to the Emergency Department at any point with worsening conditions or concerns. The physician and staff of the Emergency Department would like to thank you for choosing our facility for your health care needs. Our goal is to provide exceptional service. You may be receiving a survey in the mail following your visit. Because your feedback is very important to us, we hope you will take the time to complete and return the survey. If for any reason, you feel that you cannot rate us Very Good or 5 for the service you received today, please let us know prior to your discharge. Please follow up with your family doctor or one of your choosing. You may find a provider through the [facility] Physician Referral Service by calling [phone] or by visiting [email or web address] Thank You for choosing the [facility] Emergency Department! The following attachments cannot be sent through Care Everywhere.Nausea and Vomiting (Macanese)Constipation (Macanese)documented in this encounter [facility] 10-14-2020 Emergency department Note Patient reports that his nausea is better but still has a headache, patient ok with having tylenol for pain, Dr. Roberts notified. See new order Emergency Department Report [facility] EMERGENCY MEDICINE Service Date:.10/14/20 PCP: Mee Moreno Chief Complaint: Chief Complaint Patient presents with Headache Patient reports that he has a headache and the dry heaves that started today, did not take OTC medicatios prior to arrival HPI Deepa Abraham is a 70 y.o. male presents to the ED today due to Nausea without vomiting. He's been dry heaving starting this morning. No vomiting. No abdominal pain. No fevers chills. No diarrhea. No other complaints other than nausea and dry heaving. HEENT of note he did start taking melatonin 3 days ago for sleep according to his he is taking 5 pills each night. Review of Systems: Review of Systems Constitutional: Negative for chills and fever. HENT: Negative for congestion, sore throat, trouble swallowing and voice change. Eyes: Negative for discharge and visual disturbance. Respiratory: Negative for cough and shortness of breath. Cardiovascular: Negative for chest pain and leg swelling. Gastrointestinal: Positive for nausea. Negative for abdominal pain, diarrhea and vomiting. Genitourinary: Negative for dysuria. Musculoskeletal: Negative for back pain. Skin: Negative for rash. Neurological: Negative for weakness. Psychiatric/Behavioral: Negative for confusion. All other systems reviewed and are negative. Past Medical History: Past Medical History: Diagnosis Date TIFF (acute kidney injury) 09/24/2019 DR RAMAN STATES EVERYTHING IS NOW NORMAL Allergic rhinitis Arthritis joints & legs At risk for sleep apnea 04/08/2019 STOPBANG 08/07 ( snores loudly, BP med, BMI > 35, age > 50, Neck size > 16in, male) Atrial enlargement, left 01/26/2018 Mild on echocardiogram BPH (benign prostatic hyperplasia) CAD (Coronary Artery Disease) on CT scan 07/15/2019 Cardiac angina Cataract Depression Essential hypertension, benign H/O colonoscopy 08/24/2013 Hammer toe History of urinary urgency Hypercholesterolemia 03/02/1994 Hyperlipidemia Hyperlipoproteinemia 03/02/1994 LDL Hypersomnia Influenza vaccine refused 11/22/2015 Muscle weakness Obesity Orthopnea 01/07/2018 CONCHITA (obstructive sleep apnea) 06/07/[address] Evgeny Valdez NO significant sleep-related breathing disorder after sleep study 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 Avalos Type II diabetes mellitus, uncontrolled Vaccination refused by patient 11/22/2015 Zoster refused Vitamin D deficiency 03/02/2013 Past Surgical History: Past Surgical History: Procedure Laterality Date ARTHROTOMY KNEE Right 05/22/2020 Laterality: Right; Surgeon: Adele Matthews MD; Location: [facility] OR ARTHROPLASTY KNEE TOTAL Right 04/16/2020 Laterality: Right; Surgeon: Adele Matthews MD; Location: [facility] OR SLITTING PENIS PREPUCE N/A 04/26/2019 Laterality: N/A; Surgeon: Terrance Moseley MD; Location: [facility] OR PROSTATECTOMY TRANSURETHRAL ELECTROSURGICAL (TURP) N/A 04/26/2019 Laterality: N/A; Surgeon: Terrance Moseley MD; Location: [facility] OR CYSTOURETHROSCOPY W/ URETERAL CATHETERIZATION Bilateral 04/26/2019 Laterality: Bilateral; Surgeon: Terrance Moseley MD; Location: [facility] OR HEART CATHETERIZATION 2019 Dr. Persaud EYE SURGERY Bilateral 01/2018 eyelids raised EXTRACTION EXTRACAPSULAR CATARACT W/ IMPLANT (ECCE IOL) Right 11/10/2016 Laterality: Right; Surgeon: Yimi Maki MD; Location: [facility] OR EXTRACTION EXTRACAPSULAR CATARACT W/ IMPLANT (ECCE IOL) Left 10/27/2016 Laterality: Left; Surgeon: Yimi Maki MD; Location: [facility] OR COLONOSCOPY DIAGNOSTIC 08/24/2013 HERNIA REPAIR 1996 CIRCUMCISION N/A 03 Apr 2019 Allergies: Allergies Allergen Reactions Hydroxyzine Confusion Lipitor [Atorvastatin] Myalgia Intolerable muscle pain Per prior PCP, Dr. Abdias Tyler, records and CoQ10 failure Bactrim [Sulfamethoxazole-Trimethoprim] Hives Coq10 [Coenzyme Q10] Dreams, Abnormal Nightmares Lisinopril Cough Per prior PCP, Dr. Abdias Tyler, records Pravastatin Myalgia ( and VALLADARES ) Per prior PCP, Dr. Abdias Tyler, records Ranitidine Nausea Only Per prior PCP, Dr. Abdias Tyler, records Tramadol Abdominal Discomfort Bacitracin Contact Dermatitis, Itchy Throat, Rash and Runny Nose Levaquin [Levofloxacin] Fluoroquinolones has been added 2/2 documented diagnosis of Myasthenia Gravis. IF MG is not a confirmed by testing diagnosis, deletion of this allergy may be considered. Myasthenia Gravis is documented in patient chart by PCP but patient and state Neurology has not informed them that this is a confirmed diagnosis. Nsaids CAD with unstable angina Medications: Patient's Medications New Prescriptions MAGNESIUM CITRATE SOLUTION Use as directed ONDANSETRON 4 MG TAB DISPERSIBLE TABLET Take 1 tablet by mouth every 4 hours as needed for Nausea. Place on tongue Previous Medications ASPIRIN 81 MG CHEW TAB Chew 81 mg daily. BETAMETHASONE VALERATE 0.1 % CREAM Apply 1 Application topically 2 times daily as needed. BLOOD GLUCOSE MONITORING SUPPL (BLOOD GLUCOSE MONITOR SYSTEM) W/DEVICE KIT 1 Each by Unknown route As directed. CALCIUM-VITAMIN D 500-200 MG-UNIT TABLET Take 1 tablet by mouth 3 times daily. CARVEDILOL 6.25 MG TABLET Take 1 tablet by mouth 2 times daily with meals. CONTINUOUS BLOOD GLUC STOCK HOUSE WORKER (FREESTYLE RAYNA 14 DAY READER) DEVICE 1 Device by Unknown route 4 times daily. To be used with Rayna Sensors CONTINUOUS BLOOD GLUC SENSOR (FREESTYLE RAYNA 14 DAY SENSOR) MISC 1 Each by Unknown route every 14 days. apply to upper arm every 14 days to test blood sugars 4x daily DISABILITY PLACARD Disability placard end date 05/30/2024 FUROSEMIDE 20 MG TABLET Take 1 tablet by mouth daily. Okay to take an extra 20 mg daily for weight gain or swelling. GABAPENTIN 300 MG CAPSULE Take 1 cap PO each morning and 2 caps PO at bedtime GLUCOSE MONITOR LANCETS PRESCRIPTION Test blood sugar 4 times per day. Is on insulin therapy. GLUCOSE TEST STRIPS PRESCRIPTION Test blood sugar 4 times per day. Is on insulin therapy. HORSE CHESTNUT 300 MG CAP CR Take 300 mg by mouth 2 times daily. HYDROCORTISONE 1 % CREAM CREAM Apply leg area of itching daily, x 7 days. ICOSAPENT ETHYL (VASCEPA) 1 G CAPSULE Take 2 capsules by mouth 2 times daily. INSULIN NPH (NOVOLIN N) 100 UNIT/ML INJECTION 20 units in the morning and at 15 units bedtime INSULIN REGULAR (NOVOLIN R) 1 UNIT/0.01 ML VIAL Inject 15 Units under the skin 3 times daily (take before meals). INSULIN SYRINGE-NEEDLE U-100 (INSULIN SYRINGE .3CC/31GX5/16 ) 31G X 5/16 0.3 ML MISC To be used with insulin 4 times a day. E11.42 LORATADINE 10 MG TAB DISPERSIBLE Take 1 tablet by mouth as needed. MAGNESIUM 250 MG TABLET Take 250 mg by mouth daily. MELATONIN 5 MG CHEW TAB Chew 1 tablet at bedtime. METFORMIN 500 MG TABLET Take 2 tablets by mouth 2 times daily with meals. MIRABEGRON ER 25 MG TABLET Take 2 tablets by mouth daily. NITROGLYCERIN 0.[address] 1 tablet under tongue every 5 minutes as needed for Chest pain. max = 3 doses. If CP persists after 3rd dose, call 911 PRAMIPEXOLE DIHYDROCHLORIDE 0.75 MG TABLET Take 1 tablet by mouth every evening. ROSUVASTATIN 20 MG TABLET Take 1 tablet by mouth at bedtime. For high cholesterol TRAMADOL 50 MG TABLET Take 1 tablet by mouth every 6 hours as needed (pain) for up to 7 days. VENLAFAXINE 75 MG TABLET TAKE ONE TABLET BY MOUTH TWICE A DAY VITAMIN D3 1000 UNITS TAB Take 1,000 Units by mouth daily. Modified Medications No medications on file Discontinued Medications No medications on file Family History: Family History Problem Relation Age of Onset Hypertension Father Lipid Disorder Father high cholesterol Lung Cancer Father Diabetes Sister DM type 2 Social History: Social History Socioeconomic History Marital status: Spouse name: Filomena Merchant Number of children: 2 Years of education: Not on file Highest education level: Not on file Occupational History Not on file Tobacco Use Smoking status: Never Smoker Smokeless tobacco: Never Used Vaping Use Vaping Use: Never used Substance and Sexual Activity Alcohol use: Yes Comment: infrequently Drug use: No Sexual activity: Not on file Other Topics Concern Not on file Social History Narrative Not on file Social Determinants of Health Financial Resource Strain: Difficulty of Paying Living Expenses: Food Insecurity: Worried About Running Out of Food in the Last Year: Ran Out of Food in the Last Year: Transportation Needs: Lack of Transportation (Medical): Lack of Transportation (Non-Medical): Physical Activity: Days of Exercise per Week: Minutes of Exercise per Session: Stress: Feeling of Stress : Social Connections: Frequency of Communication with Friends and Family: Frequency of Social Gatherings with Friends and Family: Attends Tenriism Services: Active Member of Clubs or Organizations: Attends Club or Organization Meetings: Marital Status: Intimate Partner Violence: Fear of Current or Ex-Partner: Emotionally Abused: Physically Abused: Sexually Abused: Physical Exam: Physical Exam Vitals and nursing note reviewed. Constitutional: General: He is not in acute distress. HENT: Head: Normocephalic and atraumatic. Right Ear: Tympanic membrane normal. Left Ear: Tympanic membrane normal. Nose: Nose normal. Mouth/Throat: Pharynx: Uvula midline. Eyes: General: No scleral icterus. Right eye: No discharge. Left eye: No discharge. Conjunctiva/sclera: Conjunctivae normal. Pupils: Pupils are equal, round, and reactive to light. Neck: Thyroid: No thyromegaly. Vascular: No JVD. Cardiovascular: Rate and Rhythm: Normal rate and regular rhythm. Heart sounds: Normal heart sounds. No murmur heard. Pulmonary: Effort: Pulmonary effort is normal. No respiratory distress. Breath sounds: Normal breath sounds. Abdominal: General: Bowel sounds are normal. Palpations: Abdomen is soft. Tenderness: There is no abdominal tenderness. Hernia: A hernia is present. Hernia is present in the ventral area. Musculoskeletal: General: Normal range of motion. Right hand: Normal. Normal strength. Left hand: Normal. Normal strength. Cervical back: Normal range of motion and neck supple. Right lower leg: Normal. No swelling. No edema. Left lower leg: Normal. No swelling. No edema. Skin: General: Skin is warm. Findings: No rash. Neurological: Mental Status: He is alert and oriented to person, place, and time. Cranial Nerves: No cranial nerve deficit. Deep Tendon Reflexes: Reflexes are normal and symmetric. Vital Signs During ED Visit Patient Vitals for the past 24 hrs: BP Temp Temp src Pulse Resp SpO2 Weight 10/14/20 1100 130/65 97.8 F (36.6 C) Oral 89 18 94 % 120.7 kg (266 lb) Orders/Results: Orders Placed This Encounter CT ABDOMEN/PELVIS WITHOUT CONTRAST CBC, EDIF, PLATELET PROTIME-INR CHEM 7 (LYTES,BUN,CREA,GLUC) HEPATIC FUNCTION PANEL LIPASE ondansetron (ZOFRAN-ODT) disintegrating tablet 4 mg acetaminophen (TYLENOL) tablet 975 mg magnesium citrate Solution ondansetron 4 MG Tab Dispersible tablet Results for orders placed or performed during the hospital encounter of 10/14/20 CBC, EDIF, PLATELET Result Value Ref Range WBC (WHITE BLOOD COUNT) 7.3 3.6 - 11.0 10*3/uL RBC 4.77 4.0 - 6.1 10*6/uL HEMOGLOBIN (HGB) 13.0 (L) 14.0 - 18.0 G/DL HEMATOCRIT (HCT) 37.4 (L) 42.0 - 52.0 % MEAN CELL VOLUME 78.5 (L) 80.0 - 100.0 FL Mean Cell HGB 27.3 26.0 - 35.0 PG MEAN CELL HGB CONCENTRATION 34.7 27.0 - 37.0 G/DL RBC DISTRIBUTION 15.6 (H) 11.5 - 14.5 % PLATELET COUNT 190 130 - 400 10*3/uL MEAN PLATELET VOLUME 6.7 (L) 7.4 - 11.0 FL DIFFERENTIAL TYPE AUTO DIFF % NEUTROPHILS 76.1 (H) 37.0 - 75.0 % LYMPHOCYTE 12.7 (L) 20.0 - 55.0 % MONOCYTE % 7.7 0.0 - 10.0 % EOSINOPHIL % 3.1 0.0 - 11.0 % BASOPHIL % 0.4 0.0 - 2.0 % Absolute Neutrophil Count 5.6 1 - 6 10*3/uL LYMPHOCYTES, ABSOLUTE 0.90 (L) 1.2 - 3.4 10*3/uL MONOCYTES, ABSOLUTE 0.6 0.0 - 0.7 10*3/uL ABSOLUTE EOSINOPHIL COUNT 0.20 0 - 0 10*3/uL ABSOLUTE BASOPHIL COUNT 0.0 0 - 0 10*3/uL PROTIME-INR Result Value Ref Range PT 13.5 11.8 - 14.4 SEC INR 1.05 0.88 - 1.14 CHEM 7 (LYTES,BUN,CREA,GLUC) Result Value Ref Range GLUCOSE 203 (H) 70 - 100 MG/DL BUN 25 (H) 7.0 - 20.0 MG/DL CREATININE SERUM 1.02 0.7 - 1.2 MG/DL SODIUM 136 (L) 137 - 145 MMOL/L POTASSIUM 4.3 3.5 - 5.1 MMOL/L CHLORIDE 99 98 - 107 MMOL/L CARBON DIOXIDE (CO2) 25 22 - 30 MMOL/L ESTIMATED GFR, NON AMER >60 ml/min/1.73sq.m ESTIMATED GFR, >60 ml/min/1.73sq.m GFR COMMENT Average GFR for 70+ years old = 75. HEPATIC FUNCTION PANEL Result Value Ref Range ALBUMIN 4.5 2.9 - 5.3 G/DL BILIRUBIN, TOTAL 0.7 0.2 - 1.3 MG/DL ALKALINE PHOSPHATASE 84 38 - 126 IU/L AST 18 17 - 59 IU/L BILIRUBIN, DIRECT 0.2 0 - 0.4 MG/DL PROTEIN, TOTAL 7.2 6.3 - 8.2 GM/DL ALT 14 <50 IU/L LIPASE Result Value Ref Range LIPASE 68 23 - 300 U/L Radiographic Imaging CT ABDOMEN/PELVIS WITHOUT CONTRAST Final Result IMPRESSION: 1. Single subcentimeter gallstone is identified. No acute gallbladder disease. 2. Moderate to severe background global atrophic changes of the pancreas with fatty infiltration again noted. 3. Changes from chronic medical renal disease with background global atrophic changes and adjacent perinephric stranding again noted. Small left renal sinus cysts. 4. Nonobstructive bowel pattern. Constipation. Negative for appendicitis, diverticulitis, or acute inflammatory bowel disease. Procedures: Procedures Moderate Sedation Procedure: No Medications Ordered/Given During ED Visit Medications ondansetron (ZOFRAN-ODT) disintegrating tablet 4 mg (4 mg Sublingual Given 10/14/20 1110) acetaminophen (TYLENOL) tablet 975 mg (975 mg Oral Given 10/14/20 1221) Medical Decision Making Patient with nausea without vomiting today. Improved with Zofran. Abdominal CT shows some constipation but no other acute findings. His no vomiting in the emergency department. He is taking ice chips currently. We'll discharge him with magnesium citrate for constipation and Zofran for nausea. Follow-up primary care. Nonacute abdominal exam and certainly nonsurgical. Clinical Impression: 1. Nausea Acute 2. Constipation, unspecified constipation type Acute No follow-ups on file. New Prescriptions MAGNESIUM CITRATE SOLUTION Use as directed ONDANSETRON 4 MG TAB DISPERSIBLE TABLET Take 1 tablet by mouth every 4 hours as needed for Nausea. Place on tongue Discontinued Medications No medications on file An After Visit Summary was printed and given to the patient with above information. Sukumar Roberts DO 10/14/20 1242 documented in this encounter [facility] 09-26-2020 History of Present illness Narrative Deepa Abraham is a 70 y.o. male who presents for Chief Complaint Skin Lesion The patient is here today for the evaluation of his venous stasis dermatitis. It has improved, but it is still present. He is still getting swelling of his legs. He is not using the ointment as much because he was having too much greasiness on his pants. PHYSICAL EXAMINATION He has an erythematous patch of his right lower vigil with hyperpigmentation of his left leg and a red scaling macule of his left arm. ASSESSMENT/PLAN 1.Venous stasis dermatitis, chronic problem, controlled. I have recommended switching the ointment to triamcinolone cream to use for flares twice a day. I have recommended using CeraVe moisturizing lotion twice a day. We will see the patient back on a 6-month basis. 2.Actinic keratosis of the left arm. We treated this 1 actinic keratosis with cryosurgery x2 freeze-thaw cycles. We discussed home care instructions and side effects, including blistering. This was done after verbal consent was obtained. We will see the patient back in 6 months' time for re-evaluation. History reviewed. No pertinent past medical history. Past Medical History Pertinent Negatives: Diagnosis Date Noted Basal cell carcinoma 08/01/2020 Melanoma (HCC) 08/01/2020 Squamous cell skin cancer 08/01/2020 Family History Cancer-related family history is not on file. Review of Systems Constitutional: Malaise: No Skin: Other new or changing growths on skin: No Physical Examination Physical Exam The following areas were within normal limits except as noted otherwise in this note: Exposed: Oriented x 3/ alert; development/nourishment; mood/affect; scalp/hair; face; eyes/eyelids; lips; neck; digits/nails. Pertinent positive PE findings can be found below Assessment and Plan Silverio Nguyen DO 09/26/2020 documented in this encounter [facility] 08-01-2020 History of Present illness Narrative Deepa Abraham is a 70 y.o. male who presents for Chief Complaint Skin Lesion The patient is here today for the evaluation of inflammation and swelling of his lower legs. He has been diagnosed with cellulitis in the past, but he has redness and soreness in both legs with itching and inflammation. PHYSICAL EXAMINATION He has an erythematous scaling patch of his right lower leg with hyperpigmentation and swelling of his bilateral lower legs. ASSESSMENT AND PLAN Venous stasis dermatitis, acute uncomplicated problem. I started the patient on triamcinolone 0.1% ointment to be mixed with mupirocin ointment to the affected areas twice a day for 4 to 6 weeks' time. We will see the patient back in 6 weeks' time for re-evaluation. I have recommended using CeraVe moisturizer to help with dryness over top of the legs. I have discussed using compression therapy to continue to help with this. We will see the patient back in 6 weeks' time. History reviewed. No pertinent past medical history. Past Medical History Pertinent Negatives: Diagnosis Date Noted Basal cell carcinoma 08/01/2020 Melanoma (HCC) 08/01/2020 Squamous cell skin cancer 08/01/2020 Family History Cancer-related family history is not on file. Review of Systems Constitutional: Malaise: No Skin: Other new or changing growths on skin: No Physical Examination Physical Exam The following areas were within normal limits except as noted otherwise in this note: Exposed: Oriented x 3/ alert; development/nourishment; mood/affect; scalp/hair; face; eyes/eyelids; lips; neck; digits/nails. Pertinent positive PE findings can be found below Assessment and Plan Silverio Nguyen DO 08/01/2020 documented in this encounter [facility] documented as of this encounter (statuses as of 08/16/2022) [facility]13[facility]2009 History of Past illness Narrative* Problem Noted Date Diagnosed Date Resolved Date Routine general medical exam ination at a health care facility 06/12/2008 07/27/2013 Overview: 08/03/08 -- transfer from Dr. Chacko 01/08/2010, yearly check 04/08/2011, yearly check-up documented as of this encounter (statuses as of 10/17/2022) [facility]2009 History of Past illness Narrative* Problem Noted Date Diagnosed Date Resolved Date Routine general medical exam ination at a health care facility 06/12/2008 07/27/2013 Overview: 08/03/08 -- transfer from Dr. Chacko 01/08/2010, yearly check 04/08/2011, yearly check-up documented as of this encounter (statuses as of 10/24/2022) [facility] History of Past illness Narrative* Problem Noted Date Diagnosed Date Resolved Date Routine general medical exam ination at a health care facility 06/12/2008 07/27/2013 Overview: 08/03/08 -- transfer from Dr. Chacko 01/08/2010, yearly check 04/08/2011, yearly check-up documented as of this encounter (statuses as of 10/25/2022) [address]13-2009 History of Past illness Narrative* Problem Noted Date Diagnosed Date Resolved Date Routine general medical exam ination at a health care facility 06/12/2008 07/27/2013 Overview: 08/03/08 -- transfer from Dr. Chacko 01/08/2010, yearly check 04/08/2011, yearly check-up documented as of this encounter (statuses as of 12/05/2022) [address]13-2009 History of Past illness Narrative* Problem Noted Date Diagnosed Date Resolved Date Routine general medical exam ination at a health care facility 06/12/2008 07/27/2013 Overview: 08/03/08 -- transfer from Dr. Chacko 01/08/2010, yearly check 04/08/2011, yearly check-up documented as of this encounter (statuses as of 12/16/2022) [address]-2009 History of Past illness Narrative* Problem Noted Date Diagnosed Date Resolved Date Routine general medical exam ination at a health care facility 06/12/2008 07/27/2013 Overview: 08/03/08 -- transfer from Dr. Chacko 01/08/2010, yearly check 04/08/2011, yearly check-up documented as of this encounter (statuses as of 01/04/2023) [address]-2009 History of Past illness Narrative* Problem Noted Date Diagnosed Date Resolved Date Routine general medical exam ination at a health care facility 06/12/2008 07/27/2013 Overview: 08/03/08 -- transfer from Dr. Chacko 01/08/2010, yearly check 04/08/2011, yearly check-up documented as of this encounter (statuses as of 01/12/2023) [address]-2009 History of Past illness Narrative* Problem Noted Date Diagnosed Date Resolved Date Routine general medical exam ination at a health care facility 06/12/2008 07/27/2013 Overview: 08/03/08 -- transfer from Dr. Chacko 01/08/2010, yearly check 04/08/2011, yearly check-up documented as of this encounter (statuses as of 02/05/2023) [facility] History of Past illness Narrative* Problem Noted Date Diagnosed Date Resolved Date Routine general medical exam ination at a health care facility 06/12/2008 07/27/2013 Overview: 08/03/08 -- transfer from Dr. Chacko 01/08/2010, yearly check 04/08/2011, yearly check-up documented as of this encounter (statuses as of 02/13/2023) [facility] Diagnosis Venous stasis dermatitis of both lower extremities- Primary [facility] Diagnosis Venous stasis dermatitis of both lower extremities- Primary Actinic keratosis [facility] Diagnosis Venous stasis dermatitis of both lower extremities- Primary Seborrheic keratosis [facility] Diagnosis Mild cognitive impairment- Primary Mild cognitive impairment, so stated [facility] Diagnosis Pain of left hand- Primary Pain in limb Closed nondisplaced transverse fracture of shaft of right fibula with routine healing, subsequent encounter Right ankle swelling Effusion of ankle and foot joint Bilateral leg pain Pain in limb [facility] Diagnosis Nausea- Primary Nausea alone Constipation, unspecified constipation type [facility] Diagnosis Osteopenia of neck of left femur [facility] Diagnosis Type 1 diabetes mellitus with other specified complication- Primary Hypertension, essential Essential hypertension, benign Hypercholesterolemia Pure hypercholesterolemia [facility] Diagnosis Primary osteoarthritis of left knee- Primary Primary localized osteoarthrosis, lower leg [facility] Diagnosis OAB (overactive bladder)- Primary Hypertonicity of bladder Urinary urgency Urgency of urination Urinary frequency Urge incontinence [facility] Diagnosis Bilateral leg pain- Primary Pain in limb Pain of left hand Pain in limb [facility] this [facility]* Diagnosis Onychomycosis- Primary Dermatophytosis of nail History of total knee arthroplasty, right Chronic venous insufficiency Unspecified venous (peripheral) insufficiency Diabetic polyneuropathy associated with type 2 diabetes mellitus Healthcare maintenance Routine general medical examination at a [facility] facility Lymphedema of both lower extremities documented in this [facility]* Diagnosis Parkinson's disease- Primary Paralysis agitans Parkinsonism, unspecified Parkinsonism type documented in this encounter [facility]* Diagnosis Onychomycosis- Primary Dermatophytosis of nail History of total knee arthroplasty, right Chronic venous insufficiency Unspecified venous (peripheral) insufficiency Healthcare maintenance Routine general medical examination at [facility] Lymphedema of both lower extremities documented in this encounter [facility]* Diagnosis Aortic valve sclerosis- Primary Aortic valve disorders Atrial enlargement, left Cardiomegaly Atrial Fibrillation, NOS Atrial fibrillation CAD (Coronary Artery Disease) on CT scan Diastolic heart disease-chronic with failure Chronic diastolic heart failure Hypertriglyceridemia Pure hyperglyceridemia Osteopenia of neck of left femur CONCHITA (obstructive sleep apnea) Obstructive sleep apnea (adult) (pediatric) Urinary urgency Urgency of urination Urinary frequency Urge incontinence Overactive bladder Hypertonicity of bladder Hypercholesterolemia Pure hypercholesterolemia documented in this encounter 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* Diagnosis Hypercholesterolemia- Primary Pure hypercholesterolemia Hypertriglyceridemia Pure hyperglyceridemia RLS (restless legs syndrome) Restless legs syndrome (RLS) Preventative health care Routine general medical examination at a [facility] facility Screening for colon cancer Special screening for malignant neoplasms, colon Depression, recurrent-moderate Major depressive disorder, recurrent episode, moderate documented in this encounter [facility]* Diagnosis OAB (overactive bladder)- Primary Hypertonicity of bladder Urinary urgency Urgency of urination Urinary frequency Urge incontinence documented in this encounter [facility]* Diagnosis Onychomycosis- Primary Dermatophytosis of nail History of total knee arthroplasty, right Chronic venous insufficiency Unspecified venous (peripheral) insufficiency Healthcare maintenance Routine general medical examination at a health care facility Lymphedema of both lower extremities Diabetic Polyneuropathy documented in this encounter [facility]* Diagnosis Onychomycosis- Primary Dermatophytosis of nail History of total knee arthroplasty, right Chronic venous insufficiency Unspecified venous (peripheral) insufficiency Lymphedema of both lower extremities Healthcare maintenance Routine general medical examination at a health care facility Xerosis of skin Other specified disease of sebaceous glands documented in this encounter [facility]* Diagnosis Constipation, chronic-idiopathic- Primary Unspecified constipation Osteopenia of neck of left femur Depression, recurrent-moderate Major depressive disorder, recurrent episode, moderate History of mumps Personal history of other infectious and parasitic disease History of measles Personal history of other infectious and parasitic disease History of chickenpox Personal history of other infectious and parasitic disease Premature Other infants, unspecified (weight) [facility] Diagnosis Mild cognitive impairment- Primary Mild cognitive impairment, so stated Parkinsonism, unspecified Parkinsonism type Neuropathic pain Neuralgia, neuritis, and radiculitis, unspecified Other chronic pain Parkinson's disease Paralysis agitans [facility] Diagnosis Type 2 diabetes mellitus with diabetic polyneuropathy, with long-term current use of insulin- Primary Hypercholesterolemia Pure hypercholesterolemia Hypertension, essential Essential hypertension, benign documented in this encounter [facility]* Diagnosis Dizziness- Primary Dizziness and giddiness Hypoglycemia Hypoglycemia, unspecified [facility] Diagnosis Onychomycosis- Primary Dermatophytosis of nail History of total knee arthroplasty, right Healthcare maintenance Routine general medical examination at a health care facility Lymphedema of both lower extremities Xerosis of skin Other specified disease of sebaceous glands Diabetic polyneuropathy associated with type 2 diabetes mellitus Tinea pedis of both feet Type 2 diabetes mellitus with diabetic polyneuropathy, with long-term current use of insulin documented in this encounter [facility]* Diagnosis Dermatophytosis of nail- Primary [facility] Diagnosis Parkinson's disease (HCC)- Primary Paralysis agitans Restless legs syndrome (RLS) RBD (REM behavioral disorder) REM sleep behavior disorder Constipation, unspecified constipation type Dementia without behavioral disturbance (HCC) Dementia, unspecified, without behavioral disturbance documented [facility] Diagnosis Parkinson's disease (HCC)- Primary Paralysis agitans documented [facility] Diagnosis Constipation, unspecified constipation type Screening for colon cancer Special screening for malignant neoplasms, colon documented in this encounter [facility] note* Diagnosis Type 2 diabetes mellitus without complication, with long-term current use of insulin (HCC)- Primary documented in this encounter [facility] note* Diagnosis Screening for colon cancer- Primary Special screening for malignant neoplasms, colon documented in this encounter [facility] note* Diagnosis Acute pain of both knees- Primary Primary osteoarthritis of both knees Primary localized osteoarthrosis, lower leg documented in this encounter [facility] note* Diagnosis Acute pain of both knees- Primary Difficulty walking Difficulty in walking Primary osteoarthritis of both knees Primary localized osteoarthrosis, lower leg documented in this encounter [facility] note* Diagnosis Acute pain of both knees- Primary Difficulty walking Difficulty in walking Primary osteoarthritis of both knees Primary localized osteoarthrosis, lower leg documented in this encounter [facility] for referral (narrative)* Consultation (Routine) - New Request Specialty Diagnoses / Procedures Referred By Jose Daniel fisher Referred To Contact Cardiovascular Medicine Diagnoses Bilateral leg pain Adele Matthews MD [address] [place] [address] Referral ID Status Reason Start Date Expiration Date V isits Requested Visits Authorized [id number] New Request 05/29/2021 06/23/2022 1 1 Scheduling Instructions . * Adjunctive Therapy (Routine) - New Request Specialty Diagnoses / Procedures Referred By Jose Daniel fisher Referred To Contact Occupational Therapy Diagnoses Pain of left hand Adele Matthews MD [address] [place] [id number] [facility] [address] [address] Referral ID Status Reason Start Date Expiration Date V isits Requested Visits Authorized [id number] New Request 05/29/2021 06/23/2022 1 1 * Adjunctive Therapy (Routine) - Auth Not Needed Specialty Diagnoses / Procedures Referred By Contac t Referred To Contact Physical Therapy Diagnoses Right ankle swelling Adele Matthews MD [address] [place] [id number] [facility] [address] [address] Referral ID Status Reason Start Date Expiration Date V isits Requested Visits Authorized [id number] Auth Not Needed 05/29/2021 06/23/2022 100 100 [facility] for referral (narrative)* Consultation (Routine) - New Request Specialty Diagnoses / Procedures Referred By Contac t Referred To Contact Cardiovascular Medicine Diagnoses Bilateral leg pain Adele Matthews MD [address] [place] [id number] Referral ID Status Reason Start Date Expiration Date V isits Requested Visits Authorized [id number] New Request 08/14/2021 09/08/2022 1 1 Scheduling Instructions . [facility] for referral (narrative)* Consultation (Routine) - New Request Specialty Diagnoses / Procedures Referred By Contac t Referred To Contact Endocrinology, Diabetes & Metabolism Diagnoses Type 2 diabetes mellitus with polyneuropathy Debbie Veras CNP [address] [place] [address] Referral ID Status Reason Start Date Expiration Date V isits Requested Visits Authorized [id number] New Request 12/23/2021 01/17/2023 1 1 [facility] [employer] [facility] for referral (narrative)* Consultation (Routine) - New Request Specialty Diagnoses / Procedures Referred By Contac t Referred To Contact Neurology Diagnoses Mild cognitive impairment Parkinson's disease Bella Coleman MD [address] [place] [address] Referral ID Status Reason Start Date Expiration Date V isits Requested Visits Authorized [id number] New Request 05/23/2022 06/17/2023 1 1 [facility] for referral (narrative)* Consultation (Routine) - Schedule Outgoing - Transfer of Care Specialty Diagnoses / Procedures Referred By Contac t Referred To Contact Diagnoses Type 2 diabetes mellitus with diabetic polyneuropathy, with long-term current use of insulin Debbie Veras CNP [address] [place] [address] System, Provider Not In Referral ID Status Reason Start Date Expiration Date V isits Requested Visits Authorized [id number] Schedule Outgoing - Transfer of Care 06/19/2022 07/14/2023 1 1 [facility] for referral (narrative)* Consultation (Routine) - New Request Specialty Diagnoses / Procedures Referred By Contac t Referred To Contact Podiatry Diagnoses Onychomycosis Diabetic polyneuropathy associated with type 2 diabetes mellitus Toño Kelley MD [address] [place] [address] Litzy De Dios DPM [address] [place] [address] Referral ID Status Reason Start Date Expiration Date V isits Requested Visits Authorized [id number] New Request 08/29/2022 09/23/2023 1 1 [facility] for referral (narrative)* Outpatient Procedure (Routine) - Authorized Specialty Diagnoses / Procedures Referred By Contac t Referred To Contact [facility] Diagnoses Screening for colon cancer Procedures COLONOSCOPY SCREENING COLONOSCOPY SCREENING COLONOSCOPY FLX DX W/COLLJ SPEC WHEN Nevaeh Stevens MD [address] [place] [address] [address] Referral ID Status Reason Start Date Expiration Date Visits Requested Visits Authorized [id number] Authorized Auto-Generat ed Referral 10/21/2022 10/22/2023 1 1 [facility] for referral (narrative)* Outpatient Procedure (Routine) - Closed Specialty Diagnoses / Procedures Referred By Contrenée t Referred To Contact [facility] Diagnoses Screening for colon cancer Procedures COLONOSCOPY SCREENING COLONOSCOPY SCREENING COLONOSCOPY FLX DX W/COLLJ SPEC WHEN Nevaeh Stevens MD [address] [place] [address] [address] Referral ID Status Reason Start Date Expiration Date V isits Requested Visits Authorized [id number] Closed Auto-Generate d Referral 10/21/2022 10/22/2023 1 1 [facility] for visit Narrative* Outpatient Procedure (Routine) - Closed Specialty Diagnoses / Procedures Referred By Jose Daniel fisher Referred To Contact [facility] Diagnoses Screening for colon cancer Procedures COLONOSCOPY SCREENING COLONOSCOPY SCREENING COLONOSCOPY FLX DX W/COLLJ SPEC WHEN Nevaeh Stevens MD [address] [place] [address] [address] Referral ID Status Reason Start Date Expiration Date V isits Requested Visits Authorized [id number] Closed Auto-Generate d Referral 10/21/2022 10/22/2023 1 1 [facility] Summary Purpose Family History No Family History Records FoundNo Family History Records FoundNo Family History Records FoundNo Family History Records FoundNo Family History Records FoundNo Family History Records FoundNo Family History Records FoundNo Family History Records Found Advance Directives No Advanced Directives Records FoundDocuments on File Type Date Recorded 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 Advance Directives and Livin g Will 06/07/2018 9:55 AM Latest Code Status on File Code Status Date Activated Date Inactivated Comments Full Code 04/16/2020 3:33 PM Full Code 09/24/2019 1:24 AM 04/16/2020 3:33 PM Latest Code Status on File Code Status Date Activated Date Inactivated Comments Full Code 04/16/2020 3:33 PM Full Code 09/24/2019 1:24 AM 04/16/2020 3:33 PM Documents on File Type Date Recorded 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 Advance Directives/Living Will 10/27/2016 6:26 AM questionnaire assess ment Advance Directives/Living Will 11/10/2016 5:43 AM assessment Latest Code Status on File Code Status Date Activated Date Inactivated Comments Full Code 04/16/2020 3:33 PM Code Status History Code Status Date Activated Date Inactivated Comments Full Code 09/24/2019 1:24 AM 04/16/2020 3:33 PM Latest Code Status on File Code Status Date Activated Date Inactivated Comments Full Code 04/16/2020 3:33 PM Code Status History Code Status Date Activated Date Inactivated Comments Full Code 09/24/2019 1:24 AM 04/16/2020 3:33 PM Reason for Referral Status Reason Specialty Diagnoses / Procedures Referred By Contact Referred To Contact New Request Diagnoses Cardiac arrhythmia, unspecified cardiac arrhythmia type Procedures [facility] [place] [address] [place] [address] Status Reason Specialty Diagnoses / Procedures Referre d By Contact Referred To Contact Closed Diagnoses Wheezing Shortness of breath Procedures [place] [address] [place] [id number] Status Reason Specialty Diagnoses / Procedures Referred By Contact Referred To Contact New Request Diagnoses Localized edema Elevated d-dimer Procedures VASC DUPLEX VENOUS EXTREMITY LOWER [place]ATER[place] [address] [place] [id number] Status Reason Specialty Diagnoses / Procedures Referred By Contact Referred To Contact New Request Cardiovascular Medicine Diagnoses Orthopnea Pulmonary hypertension Pericardial [place] [address] [place] [id number] Scheduling Instructions . Status Reason Specialty Diagnoses / Procedures Re ferred By Contact Referred To Contact Closed Cardiology Diagnoses Venous insufficiency (chronic) (peripheral) Phlebitis or thrombophlebitis of lower extremity Procedures Ultrasound venous insufficiency exam Litzy Persaud MD [address] [facility] [place] [address] Specialty Diagnoses / Procedures Referred By Contac t Referred To Contact Bone Densitometry Diagnoses Osteopenia of neck of left femur Procedures BONE DENSITY AXIAL (HIP, PELVIS, SPINE) Mee Moreno MD [address] [place] [address] [facility] [address] [place] [address] Referral ID Status Reason Start Date Expiration Date Visits Re quested Visits Authorized [id number] Closed 05/27/2021 06/21/2022 1 1 Specialty Diagnoses / Procedures Referred By Contac t Referred To Contact [facility] Diagnoses Parkinson's disease (HCC) Procedures CONSULT TO PHYSICAL THERAPY PHYSICAL THERAPY EVALUATION HIGH COMPLEX 45 MINS Micheal Perez MD [address] [place] [address] [facility] [address] [address] Referral ID Status Reason Start Date Expiration Date Visits Requested Visits Authorized [id number] Pending Review Auto-Generat ed Referral 10/16/2022 10/16/2023 1 1 Specialty Diagnoses / Procedures Referred By Contac t Referred To Contact [facility] Diagnoses Parkinson's disease (HCC) Procedures CONSULT TO SPEECH THERAPY OFFICE/OUTPATIENT [facility] 60-74 MINUTES Micheal Perez MD [address] [place] [address] [facility] [address] [address] Referral ID Status Reason Start Date Expiration Date Visits Requested Visits Authorized [id number] Pending Review Auto-Generat ed Referral 10/23/2022 10/23/2023 1 1 Specialty Diagnoses / Procedures Referred By Jose Daniel fisher Referred To Contact [facility] Diagnoses Acute pain of both knees Primary osteoarthritis of both knees Procedures CONSULT TO PHYSICAL THERAPY PHYSICAL THERAPY EVALUATION HIGH COMPLEX 45 MINS Carol Gutierrez MD [address] [place] [address] [facility] [place] [address] [place] [address] Referral ID Status Reason Start Date Expiration Date Visits Requested Visits Authorized [id number] Authorized Auto-Generat ed Referral 03/02/2022 03/01/2023 99 99 Instructions * Patient Instructions - Mee Moreno MD - 01/25/2018 4:01 PM EST Edema of lower extremities- Echocardiogram is still pending- In the meantime moderately go ahead and get compression stockings, 15 mmHg, and put them on the morning, and remove them in the evening. Venous stasis ulcer left anterior leg- GREATLY improved! Orthopnea- Unknown etiology, echocardiogram still pending I spoke with Sharyn at cardio imaging. She is thinking that perhaps because the PFT machine was broken the patient had rescheduled the echocardiogram and that took a test was not rescheduled by staff. She has openings at 10, 1, and at 2:00 tomorrow. You said that you would like to go to 1:00 appointment for the echocardiogram. Sharyn may still call you to verify this after I let her know Wheezing- Pulmonary function tests are still pending Arrhythmia- This is a new issue for the patient. My interpretation of the EKG is that he appears to be only a partially irregular supraventricular rhythm in the middle of the reading. We discussed the options including a referral to a sand mixer. You elected to go ahead and proceed with a 30 day Holter monitor report in this encounter* Patient Instructions - Mee Moreno MD - 02/15/2018 2:24 PM EST Venous insufficiency- I printed up a prescription for as above compression hose, 15 mmHg. Please take this to [facility]. This development could be due to the pulmonary hypertension, discussed below. Hypertensive heart disease (with moderate concentric left ventricular hypertrophy on echocardiogram- We will need to continue to treat your hypertension aggressively Atrial enlargement, left- This is probably due to the increasing pulmonary pressures, noted low. This would increase the likelihood of having atrial fibrillation, and abnormal heart rhythm for which many people take Coumadin. Aortic sclerosis without stenosis- This is a scarring of the aortic valve. The only thing we can do is treat cholesterol aggressively (which we are doing, and periodically reassess to make sure that a process of stenosis or closure, is not beginning. Moderate pulmonary hypertension- This is a moderately severe chronic condition newly diagnosed by echocardiogram. This very well could be contributing to back pressures which would worsen the swelling of her legs. This can also potentially contribute to some orthopnea. This condition is very difficult to treat. We discussed having me see a sand mixer. Pericardial effusion, mild- This is a mild buildup of fluid in the sac surrounds the heart. This could be nothing, merely a marker of some inflammatory process however I believe it would be appropriate for you to see a sand mixer at this time given the multiple findings. Pulmonary hypertension- Moderate, unknown etiology. I'm still awaiting the pulmonary function tests. In the meantime, I believe he should see your new sand mixer for that as well. You should hear from someone in the next few days regarding this visit Orthopnea- I believe this is related to the pulmonary hypertension and potentially lung disease. There are still waiting for the final interpretation of the pulmonary function tests. Left knee pain- We will get x-rays of the knee. I would wear brace to help support the need for the time being. Tylenol as needed. Wheezing- Again, lung function tests are pending. Cerumen impaction of left ear. Moderate proximal left ear impaction refractory to ear irrigation At this point what she should try a home remedy: 1-2 times a day fill your affected ear with a solution composed of equal parts of over the counter... hydrogen peroxide Isopropyl ( not rubbing ) alcohol and white vinegar. Let it stay in the ear for several minutes then tilt your head and allow it all to drain out. Once you are no longer getting any residuals out, have your ears rechecked. It may be that you needto repeat the cleaning every couple weeks or so. Renal insufficiency- This wasn't mildly abnormal lab tests. We will reassess in the next month. Hypercholesterolemia- This is a chronic problem. We will reassess in March as previously planned Venous stasis ulcer- RESOLVED Please try to refrain from scratching too much but the itching parts of the legs because you are going to be more prone to have venous ulcers and infections Arrhythmia- I did not detect an abnormal rhythm on physical exam today. We are still waiting for the results ofthe Holter monitor report. in this encounter History of Present Illness * Gail Arreola - 01/25/2018 2:30 PM EST Review of Systems Constitutional: Negative for fever and weight loss. HENT: Negative for sore throat. Eyes: Negative for blurred vision and double vision. Respiratory: Negative for cough and shortness of breath. Cardiovascular: Negative for chest pain. Gastrointestinal: Negative for abdominal pain, blood in stool and vomiting. Genitourinary: Negative for dysuria. Skin: Negative for rash. Neurological: Negative for loss of consciousness. Endo/Heme/Allergies: Does not bruise/bleed easily. * Mee Moreno MD - 01/25/2018 2:30 PM EST Formatting of this note may be different from the original. ((((Portions of this note utilized [employer] dictation software, please excuse any typographical or grammatical errors.)))) Chief Complaint: Deepa Abraham is a 67 y.o. male who comes in with the following complaint(s): Chief Complaint Patient presents with Follow-up swelling, ulcer, orthopnea, wheezing HPI: NOTE the patient's January 13 follow-up visit was canceled Edema- Venous stasis ulcer to have left lower extremity This patient started having increased swelling of the legs around June 2017, with lesions developingaround October 2017. Gabapentin can continue to this and he has been on this for about a dozen years. His D dimers were positive prompting a venous Doppler study which was performed on January 13 and were negative. INTERVAL NOTE: 1. One week of furosemide 40 mg a day was started. 2. He was instructed to elevate his legs higher than the level of his heart for an hour a time 3 times a day 3. He was instructed to seeing you to wear his compression hose on in the morning off in the evening every day. 4. He was told to avoid any extra salt, limiting his inputs 2 g of sodium per day. 5. He noted that after completing the course of diuretics he had increased swelling around the right knee with increased pain Wheezing- Pulmonary function tests were ordered earlier this month however they've not being completed, his appointment scheduled for January 29. He's still wheezing. He's never smoked however, he's been around it most of his life. Orthopnea- This was an acute issue for the patient when seen January 07. EKG was performed in the office and was noncontributory. Chest x-ray was ordered, and performed on January 13 showing no acute abnormalities. In the meantime is instructed to sleep in his recliner so that he would get a good night sleep. He hasn't really tried to get in a supine position. The echocardiogram, ordered January 07, Allergies Allergen Reactions Lipitor [Atorvastatin] Myalgia Intolerable muscle pain Per prior PCP, Dr. Abdias Tyler, records Lisinopril Cough Per prior PCP, Dr. Abdias Tyler, records Pravastatin Myalgia ( and VALLADARES ) Per prior PCP, Dr. Abdias Tyler, records Ranitidine Nausea Only Per prior PCP, Dr. Abdias Tyler, records Outpatient Medications Prior to Visit Medication Sig Dispense Refill aspirin 81 MG Chew Tab take 81 mg by mouth daily.. famotidine 40 MG Tab Take 1 tablet by mouth daily. 30 tablet 1 gabapentin 300 MG Cap capsule Take 3 capsules by mouth at bedtime. Courtesy refill for Dr. Aguilar90 capsule 5 insulin NPH (NOVOLIN N) 100 UNIT/ML injection 20 units in the morning and at bedtime 1 vial 3 insulin regular (NOVOLIN R) 1 unit/0.01 ml vial Inject 10 Units under the skin 3 times daily (take before meals). 10 mL 4 Insulin Syringe-Needle U-100 (INSULIN SYRINGE .3CC/31GX5/16 ) 31G X 5/16 0.3 ML Misc To be used with insulin 4 times a day. E11.42 150 Each 4 Loratadine 10 MG Tab Dispersible Take 1 tablet by mouth as needed. 90 tablet 3 losartan 25 MG Tab tablet Take 1 tablet by mouth daily. 90 tablet 3 lovastatin 40 MG Tab tablet Take 2 tablets by mouth every evening at 6 PM. 180 tablet 3 metformin 1000 MG Tab tablet Take 1 tablet by mouth 2 times daily. 180 tablet 1 Pramipexole Dihydrochloride 0.75 MG Tab Take 1 tablet by mouth every evening. 30 tablet 5 TAMSULOSIN HCL 0.4 MG Cap capsule TAKE TWO CAPSULES BY MOUTH DAILY FOR PROSTATE. 180 capsule 3 venlafaxine 75 MG Tab tablet Take 1 tablet by mouth 2 times daily. 180 tablet 1 Vitamin D3 1000 units Tab Take 1,000 Units by mouth daily. furOSEmide 40 MG Tab tablet Take 1 tablet by mouth daily for 7 days. (Patient not taking: Reported on 01/25/2018 ) 7 tablet 0 No facility-administered medications prior to visit. Patient Active Problem List Diagnosis Obesity Depression Allergic rhinitis Diabetes Mellitus Type 2 with polyneuropathy Hypercholesterolemia RLS (restless legs syndrome) Vitamin D deficiency Periodic limb movement disorder Diabetic Polyneuropathy Pes planus Hypertension, essential Other motor neuron disease Hypersomnia BPH (benign prostatic hyperplasia) Hammer toe Cervical radiculopathy Drooping eyelid, bilateral Chronic neck pain Diabetes mellitus due to underlying condition with diabetic polyneuropathy, without long-term current use of insulin Impingement syndrome of left shoulder Major depressive disorder, recurrent, moderate Edema, localized to the legs Orthopnea Wheezing Shortness of breath Venous stasis ulcer limited to breakdown of skin without varicose veins Bloating Past Surgical History: Procedure Laterality Date EXTRACTION EXTRACAPSULAR CATARACT W/ IMPLANT (ECCE IOL) Right 11/10/2016 Laterality: Right; Surgeon: Yimi Maki MD; [facility] EXTRACTION EXTRACAPSULAR CATARACT W/ IMPLANT (ECCE IOL) Left 10/27/2016 Laterality: Left; Surgeon: Yimi Maki MD; Location: [facility] OR COLONOSCOPY DIAGNOSTIC 08/24/2013 HERNIA REPAIR 1995 Immunization History Administered Date(s) Administered Pneumococcal Conjugate 13-valent vaccine 11/22/2015 Pneumococcal Polysac 23-Valent Vaccine 04/22/2017 Td Vaccine 2-2 LF 11/22/2015 Social History Social History Marital status: Spouse name: N/A Number of children: N/A Years of education: N/A Occupational History Not on file. Social History Main Topics Smoking status: Never Smoker Smokeless tobacco: Never Used Alcohol use Yes Comment: infrequently Drug use: No Sexual activity: Not on file Other Topics Concern Not on file Social History Narrative No narrative on file Family Hx as in chart. ROS: Constitutional: Negative for fever and weight loss. HENT: Negative for sore throat. Eyes: Negative for blurred vision and double vision. Respiratory: Negative for cough and shortness of breath. Cardiovascular: Negative for chest pain. Gastrointestinal: Negative for abdominal pain, blood in stool and vomiting. Genitourinary: Negative for dysuria. Skin: Negative for rash. Neurological: Negative for loss of consciousness. Endo/Heme/Allergies: Does not bruise/bleed easily. OBJECTIVE: Visit Vitals BP 128/64 (BP Location: Left arm, BP Position: Sitting) Pulse 92 Wt 131 kg (288 lb 12.8 oz) SpO2 97% BMI 39.17 kg/m Wt Readings from Last 3 Encounters: 01/25/18 131 kg (288 lb 12.8 oz) 01/07/18 132 kg (291 lb) 12/30/17 132 kg (291 lb) Physical Exam Constitutional: He is oriented to person, place, and time. He appears well- developed and well-nourished. HENT: Head: Normocephalic and atraumatic. Eyes: Conjunctivae are normal. No scleral icterus. Neck: No tracheal deviation present. No thyromegaly present. Cardiovascular: Normal rate and normal heart sounds. Exam reveals no friction rub. No murmur heard. No carotid or abdominal bruits. Irregularly irregular rhythm today Pulmonary/Chest: Effort normal and breath sounds normal. No respiratory distress. He has no wheezes. He has no rales. He exhibits no tenderness. Limited depth of respiration, but clear Abdominal: Soft. Bowel sounds are normal. He exhibits distension. He exhibits no mass. There is no tenderness. There is no rebound and no guarding. Obese Musculoskeletal: 15 cm inferior to the inferior patella: 49.6 cm left NOW 47.8cm (01/25/18) 45.6 cm right NOW @ 45/2 (01/25/18) Mild pitting at Mid calf, <1+ GANESH Neurological: He is alert and oriented to person, place, and time. Skin: Skin is warm and dry. He is not diaphoretic. Mild bilateral lower extremity hyperemia, scant. 13 millimeter ulceration with yellowish exudate of the mid left vigil anteriorly. The area of the pre-existing blister is proximally 18 mm in diameter. Psychiatric: He has a normal mood and affect. Nursing note and vitals reviewed. ASSESSMENT / PLAN Problem List Items Addressed This Visit Edema, localized to the legs - Primary Orthopnea Venous stasis ulcer limited to breakdown of skin without varicose veins Wheezing Other Visit Diagnoses Arrhythmia Edema of lower extremities- Echocardiogram is still pending- In the meantime moderately go ahead and get compression stockings, 15 mmHg, and put them on the morning, and remove them in the evening. Venous stasis ulcer left anterior leg- GREATLY improved! Orthopnea- Unknown etiology, echocardiogram still pending I spoke with Sharyn at cardio imaging. She is thinking that perhaps because the PFT machine was broken the patient had rescheduled the echocardiogram and that took a test was not rescheduled by staff. She has openings at 10, 1, and at 2:00 tomorrow. You said that you would like to go to 1:00 appointment for the echocardiogram. Sharyn may still call you to verify this after I let her know Wheezing- Pulmonary function tests are still pending Arrhythmia- This is a new issue for the patient. Mild to moderate, intermittent. Unknown etiology. My interpretation of the EKG is that he appears to be only a partially irregular supraventricular rhythm in the middle of the reading. We discussed the options including a referral to a sand mixer. You elected to go ahead and proceed with a 30 day Holter monitor report Patient was advised to call with any questions or concerns. If symptoms worsen patient was advised to follow up in our office or the Emergency Dept. Benefits, Risks, Contraindications, and Complications of recommended treatments were explained the patient understands and agrees to proceed with plan. Return in about 3 weeks (around 02/15/2018) for Swelling of the legs, orthopnea, wheezing. Mee Moreno MD 01/25/2018 in this encounter* Gail Arreola - 02/15/2018 1:30 PM EST Review of Systems Constitutional: Negative for fever and weight loss. HENT: Negative for sore throat. Eyes: Negative for blurred vision and double vision. Respiratory: Negative for cough and shortness of breath. Cardiovascular: Negative for chest pain. Gastrointestinal: Negative for abdominal pain, blood in stool and vomiting. Genitourinary: Negative for dysuria. Skin: Positive for rash. Neurological: Negative for loss of consciousness. Endo/Heme/Allergies: Does not bruise/bleed easily. * Mee Moreno MD - 02/15/2018 1:30 PM EST Formatting of this note may be different from the original. ((((Portions of this note utilized [employer] dictation software, please excuse any typographical or grammatical errors.)))) Chief Complaint: Deepa Abraham is a 67 y.o. male who comes in with the following complaint(s): Chief Complaint Patient presents with Follow-up swelling of legs, orthopnea, wheezing Wax in Ear left ear, seen collection systems administrator Knee Pain left, still using cane HPI: Edema- Venous stasis ulcer to have left lower extremity This patient started having increased swelling of the legs around June 2017, with lesions developingaround October 2017. Gabapentin can continue to this and he has been on this for about a dozen years. His D dimers were positive prompting a venous Doppler study which was performed on January 13 and were negative. INTERVAL NOTE- Patient was to start placing 15 mm compression strength hose in the morning, and removing them in the evening. The venous stasis ulcer had greatly improved at our January 25, 2018 office meeting. He has started with a new RT sided lesion too, 2 different sets of large 50 mm compression hose were not able to be put on. LEFT knee pain. Giving out, painful. No xrays on file. Orthopnea- This was an acute issue for the patient when seen January 07. EKG was performed in the office and was noncontributory. Chest x-ray was ordered, and performed on January 13 showing no acute abnormalities. In the meantime is instructed to sleep in his recliner so that he would get a good night sleep. 02/15/2018 he is STILL needing to sit up, with some Wheezing noted. The patient's echocardiogram was seemingly canceled by the patient initially because the pulmonary function test machine was broken and cannot be performed on the same day. INTERVAL NOTE: Echocardiogram performed January 26, 2018 did have a issue of having some technical difficulty, and Definity echocardiographic contrast was used 1. Moderate concentric LVH 2. EF 60-65%- 3. Mild LAE 4. Mild aortic sclerosis without stenosis 5. Moderate pulmonary hypertension with an RVSP of 53.98 mmHg(No history of CONCHITA or COPD FURTHERMOREhe has ALREADY had a polysomnogram which was NOT positive for sleep apnea) 6. Mild pericardial effusion Wheezing, etc.- Patient had his pulmonary function test performed January 29. The formal read is still pending. FEF 25-75% is consistent with mild asthma Arrhythmia- The Holter monitor report is not yet available Allergies Allergen Reactions Lipitor [Atorvastatin] Myalgia Intolerable muscle pain Per prior PCP, Dr. Abdias Tyler, records Lisinopril Cough Per prior PCP, Dr. Abdias Tyler, records Pravastatin Myalgia ( and VALLADARES ) Per prior PCP, Dr. Abdias Tyler, records Ranitidine Nausea Only Per prior PCP, Dr. Abdias Tyler, records Outpatient Medications Prior to Visit Medication Sig Dispense Refill aspirin 81 MG Chew Tab take 81 mg by mouth daily.. erythromycin 5 MG/GM Ointment ophthalmic ointment Apply 1 Application to eye as needed. famotidine 40 MG Tab Take 1 tablet by mouth daily. 30 tablet 1 gabapentin 300 MG Cap capsule Take 3 capsules by mouth at bedtime. Courtesy refill for Dr. Aguilar90 capsule 5 insulin NPH (NOVOLIN N) 100 UNIT/ML injection 20 units in the morning and at bedtime 1 vial 3 insulin regular (NOVOLIN R) 1 unit/0.01 ml vial Inject 10 Units under the skin 3 times daily (take before meals). 10 mL 4 Insulin Syringe-Needle U-100 (INSULIN SYRINGE .3CC/31GX5/16 ) 31G X 5/16 0.3 ML Misc To be used with insulin 4 times a day. E11.42 150 Each 4 Loratadine 10 MG Tab Dispersible Take 1 tablet by mouth as needed. 90 tablet 3 losartan 25 MG Tab tablet Take 1 tablet by mouth daily. 90 tablet 3 lovastatin 40 MG Tab tablet Take 2 tablets by mouth every evening at 6 PM. 180 tablet 3 metformin 1000 MG Tab tablet Take 1 tablet by mouth 2 times daily. 180 tablet 1 Pramipexole Dihydrochloride 0.75 MG Tab Take 1 tablet by mouth every evening. 30 tablet 5 TAMSULOSIN HCL 0.4 MG Cap capsule TAKE TWO CAPSULES BY MOUTH DAILY FOR PROSTATE. 180 capsule 3 venlafaxine 75 MG Tab tablet Take 1 tablet by mouth 2 times daily. 180 tablet 1 Vitamin D3 1000 units Tab Take 1,000 Units by mouth daily. No facility-administered medications prior to visit. Patient Active Problem List Diagnosis Obesity Depression Allergic rhinitis Diabetes Mellitus Type 2 with polyneuropathy Hypercholesterolemia RLS (restless legs syndrome) Vitamin D deficiency Periodic limb movement disorder Diabetic Polyneuropathy Pes planus Hypertension, essential Other motor neuron disease Hypersomnia BPH (benign prostatic hyperplasia) Hammer toe Cervical radiculopathy Drooping eyelid, bilateral Chronic neck pain Diabetes mellitus due to underlying condition with diabetic polyneuropathy, without long-term current use of insulin Impingement syndrome of left shoulder Major depressive disorder, recurrent, moderate Edema, localized to the legs Orthopnea Wheezing Shortness of breath Venous stasis ulcer limited to breakdown of skin without varicose veins Bloating Hypertensive heart disease without heart failure Atrial enlargement, left Aortic valve sclerosis Pulmonary hypertension Pericardial effusion Myasthenia gravis Paralytic ptosis of bilateral eyelids Past Surgical History: Procedure Laterality Date EXTRACTION EXTRACAPSULAR CATARACT W/ IMPLANT (ECCE IOL) Right 11/10/2016 Laterality: Right; Surgeon: Yimi Maki MD; Location: [facility] EXTRACTION EXTRACAPSULAR CATARACT W/ IMPLANT (ECCE IOL) Left 10/27/2016 Laterality: Left; Surgeon: Yimi Maki MD; Location: [facility] COLONOSCOPY DIAGNOSTIC 08/24/2013 HERNIA REPAIR 1995 Immunization History Administered Date(s) Administered Pneumococcal Conjugate 13-valent vaccine 11/22/2015 Pneumococcal Polysac 23-Valent Vaccine 04/22/2017 Td Vaccine 2-2 LF 11/22/2015 Social History Social History Marital status: Spouse name: N/A Number of children: N/A Years of education: N/A Occupational History Not on file. Social History Main Topics Smoking status: Never Smoker Smokeless tobacco: Never Used Alcohol use Yes Comment: infrequently Drug use: No Sexual activity: Not on file Other Topics Concern Not on file Social History Narrative No narrative on file Family Hx as in chart. ROS: Constitutional: Negative for fever and weight loss. HENT: Negative for sore throat. Eyes: Negative for blurred vision and double vision. Respiratory: Negative for cough and shortness of breath. Cardiovascular: Negative for chest pain. Gastrointestinal: Negative for abdominal pain, blood in stool and vomiting. Genitourinary: Negative for dysuria. Skin: Positive for rash. Neurological: Negative for loss of consciousness. Endo/Heme/Allergies: Does not bruise/bleed easily. OBJECTIVE: Visit Vitals BP 132/78 (BP Location: Left arm, BP Position: Sitting) Pulse 75 Wt 128.1 kg (282 lb 6.4 oz) SpO2 95% BMI 38.30 kg/m Wt Readings from Last 3 Encounters: 02/15/18 128.1 kg (282 lb 6.4 oz) 01/25/18 131 kg (288 lb 12.8 oz) 01/07/18 132 kg (291 lb) Physical Exam Constitutional: He is oriented to person, place, and time. He appears well- developed and well-nourished. HENT: Head: Normocephalic and atraumatic. Puffy left eyelid postoperatively Left moist proximal cerumen collection. After 2 large pieces were removed, there is still a residual pale yellow moist appearing collection proximal to the tympanic membrane which is unable to be dislodged after a second round of irrigation. Eyes: Conjunctivae are normal. No scleral icterus. Neck: No tracheal deviation present. No thyromegaly present. Cardiovascular: Normal rate and normal heart sounds. Exam reveals no friction rub. No murmur heard. No carotid or abdominal bruits. Pulmonary/Chest: Effort normal and breath sounds normal. No respiratory distress. He has no wheezes. He has no rales. He exhibits no tenderness. Limited depth of respiration, but clear Abdominal: Soft. Bowel sounds are normal. He exhibits no distension and no mass. There is no tenderness. There is no rebound and no guarding. Obese Musculoskeletal: He exhibits edema. Mild pitting at Mid calf, <1+ GANESH Neurological: He is alert and oriented to person, place, and time. Skin: Skin is warm and dry. He is not diaphoretic. Resolved left leg stasis ulcer. Minor excoriations bilateral lower extremities Psychiatric: He has a normal mood and affect. Nursing note and vitals reviewed. ASSESSMENT / PLAN Problem List Items Addressed This Visit Aortic valve sclerosis (Chronic) Atrial enlargement, left (Chronic) Edema, localized to the legs - Primary Relevant Medications Misc. Devices Misc Hypercholesterolemia (Chronic) Relevant Orders LIPID PANEL W CALCULATED LDL Hypertensive heart disease without heart failure (Chronic) Orthopnea Relevant Orders AMB REFERRAL TO CARDIOVASCULAR MEDICINE Pericardial effusion Relevant Orders AMB REFERRAL TO CARDIOVASCULAR MEDICINE Pulmonary hypertension (Chronic) Relevant Orders AMB REFERRAL TO CARDIOVASCULAR MEDICINE Venous stasis ulcer limited to breakdown of skin without varicose veins Wheezing Other Visit Diagnoses Arrhythmia Left knee pain, unspecified chronicity Relevant Orders XR KNEE LEFT 4+ VIEWS Renal insufficiency Relevant Orders BASIC METABOLIC PANEL Venous insufficiency- I printed up a prescription for as above compression hose, 15 mmHg. Please take this to [facility]. This development could be due to the pulmonary hypertension, discussed below. Hypertensive heart disease (with moderate concentric left ventricular hypertrophy on echocardiogram- We will need to continue to treat your hypertension aggressively Atrial enlargement, left- This is probably due to the increasing pulmonary pressures, noted low. This would increase the likelihood of having atrial fibrillation, and abnormal heart rhythm for which many people take Coumadin. Aortic sclerosis without stenosis- This is a scarring of the aortic valve. The only thing we can do is treat cholesterol aggressively (which we are doing, and periodically reassess to make sure that a process of stenosis or closure, is not beginning. Moderate pulmonary hypertension- This is a moderately severe chronic condition newly diagnosed by echocardiogram. This very well could be contributing to back pressures which would worsen the swelling of her legs. This can also potentially contribute to some orthopnea. This condition is very difficult to treat. We discussed having me see a sand mixer. Pericardial effusion, mild- This is a mild buildup of fluid in the sac surrounds the heart. This could be nothing, merely a marker of some inflammatory process however I believe it would be appropriate for you to see a sand mixer at this time given the multiple findings. Pulmonary hypertension- Moderate, unknown etiology. I'm still awaiting the pulmonary function tests. In the meantime, I believe he should see your new sand mixer for that as well. You should hear from someone in the next few days regarding this visit Orthopnea- I believe this is related to the pulmonary hypertension and potentially lung disease. There are still waiting for the final interpretation of the pulmonary function tests. Left knee pain- We will get x-rays of the knee. I would wear brace to help support the need for the time being. Tylenol as needed. Wheezing- Again, lung function tests are pending. Cerumen impaction of left ear. Moderate proximal left ear impaction refractory to ear irrigation At this point what she should try a home remedy: 1-2 times a day fill your affected ear with a solution composed of equal parts of over the counter... hydrogen peroxide Isopropyl ( not rubbing ) alcohol and white vinegar. Let it stay in the ear for several minutes then tilt your head and allow it all to drain out. Once you are no longer getting any residuals out, have your ears rechecked. It may be that you needto repeat the cleaning every couple weeks or so. Renal insufficiency- This wasn't mildly abnormal lab tests. We will reassess in the next month. Hypercholesterolemia- This is a chronic problem. We will reassess in March as previously planned Venous stasis ulcer- RESOLVED Please try to refrain from scratching too much but the itching parts of the legs because you are going to be more prone to have venous ulcers and infections Arrhythmia- I did not detect an abnormal rhythm on physical exam today. We are still waiting for the results ofthe Holter monitor report. Patient was advised to call with any questions or concerns. If symptoms worsen patient was advised to follow up in our office or the Emergency Dept. Benefits, Risks, Contraindications, and Complications of recommended treatments were explained the patient understands and agrees to proceed with plan. Return in about 1 month (around 03/18/2018) for Renal insufficiency, hypercholesterolemia, wheezing,venous insufficiency malignant pain. Mee Moreno MD 02/15/2018 in this encounter Assessments Diagnosis Edema, localized to the legs - Primary Edema Venous stasis ulcer left ant erior leg Orthopnea Wheezing Arrhythmia Diagnosis Localized edema Edema Orthopnea Shortness of breath Diagnosis Wheezing Shortness of breath Diagnosis Edema, localized to the legs - Primary Edema Elevated d-dimer Abnormal coagulation profile Diagnosis Edema, localized to the legs - Primary Edema Orthopnea Wheezing Venous stasis ulcer left ant erior leg Arrhythmia Hypertensive heart disease w ithout heart failure Unspecified hypertensive heart disease without heart failure Atrial enlargement, left Cardiomegaly Aortic valve sclerosis Aortic valve disorders Pulmonary hypertension Other chronic pulmonary heart diseases Pericardial effusion Unspecified disease of pericardium Left knee pain, unspecified chronicity Renal insufficiency Unspecified disorder of kidney and ureter Hypercholesterolemia Pure hypercholesterolemia Diagnosis Wheezing Shortness of breath Diagnosis Venous insufficiency (chronic) (peripheral) Unspecified venous (peripheral) insufficiency Phlebitis or thrombophlebitis of lower extremity Medications Administered Section Inactive Administered Medications - up to 3 most recent administrations Medication Order MAR Action Action Date Dose Rate Site diphenhydrAMINE 12.5-50 mg injection (BENADRYL) 12.5-50 mg, INTRAVENOUS, DIRECTED, Starting on Thu11/19/22 at 0830, Until Thu11/19/22 at 1229, DOSING DIRECTED BY PHYSICIAN FOR PROCEDURAL SEDATION ONLY, Intraprocedure Given 11/19/2022 8:22 AM EDT 50 mg fentaNYL 50 mcg/mL 25-100 mcg injection (SUBLIMAZE) 25-100 mcg, INTRAVENOUS, DIRECTED, Starting on Thu11/19/22 at 0830, Until Thu11/19/22 at 1229, DOSING DIRECTED BY PHYSICIAN FOR PROCEDURAL SEDATION ONLY, Intraprocedure Given 11/19/2022 8:19 AM EDT 50 mcg lactated ringers iv infusion 75 mL/hr, INTRAVENOUS, CONTINUOUS, Starting on Thu11/19/22 at 0730, Until Thu11/19/22 at 0912, Preprocedure New Bag/Syringe/Andrzej le 11/19/2022 7:40 AM EDT 75 mL/hr 75 mL/hr Hand, Right midazolam 1-5 mg injection (VERSED) 1-5 mg, INTRAVENOUS, DIRECTED, Starting on Thu11/19/22 at 0830, Until Thu11/19/22 at 1229, DOSING DIRECTED BY PHYSICIAN FOR PROCEDURAL SEDATION ONLY, Intraprocedure Given 11/19/2022 8:19 AM EDT 3 mg Additional Source Comments (unrecognized sect ion and content) No Status Records FoundNo Status Records FoundNo Status Records FoundNo Status Records FoundNo Status Records FoundNo Status Records FoundNo Status Records FoundNo Status Records Found INFORMATION SOURCE (unrecogn ized section and content) DATE CREATED AUTHOR AUTHOR'S ORGANIZ ATION 06/08/2018 [facility] DATE CREATED AUTHOR AUTHOR'S ORGANIZ ATION 06/10/2018 [facility] DATE CREATED AUTHOR AUTHOR'S ORGANIZ ATION 01/06/2021 [facility] DATE CREATED AUTHOR AUTHOR'S ORGANIZ ATION 04/24/2022 [facility] DATE CREATED AUTHOR AUTHOR'S ORGANIZ ATION 2022 [facility] DATE CREATED AUTHOR AUTHOR'S ORGANIZ ATION 09/10/2022 [facility] DATE CREATED AUTHOR AUTHOR'S ORGANIZ ATION 02/18/2023 [facility] Reason for Visit (unrecogniz ed section and content) Status Reason Specialty Diagnoses / Procedures Referre d By Contact Referred To Contact Closed Diagnoses Localized edema Shortness of breath Procedures ECHOCARDIOGRAM Mee Moreno MD [address] [place] [address] Status Reason Specialty Diagnoses / Procedures Referre d By Contact Referred To Contact Closed Diagnoses Wheezing Shortness of breath Procedures PFT COMPLETE Mee Moreno MD [address] [place] [address] Reason Comments Other Reason Comments Critical Lab Values Reason Comments Follow-up swelling of legs, or thopnea, wheezing Wax in Ear left ear, seen audio logist Knee Pain left, still using ca ne Status Reason Specialty Diagnoses / Procedures Referre d By Contact Referred To Contact Closed Diagnoses Localized edema Elevated d-dimer Procedures VASC DUPLEX VENOUS EXTREMITY LOWER BILATERAL Mee Moreno MD [address] [place] [address] Status Reason Specialty Diagnoses / Procedures Re ferred By Contact Referred To Contact Closed Cardiology Diagnoses Venous insufficiency (chronic) (peripheral) Phlebitis or thrombophlebitis of lower extremity Procedures Ultrasound venous insufficiency exam Litzy Persaud MD [address] [facility] [place] [address] Reason Comments Skin Lesion Reason Comments Follow-up geriatric Reason Comments Pain Follow-up Reason Comments Headache Patient reports that he has a headache and the dry heaves that started today, did not take OTC medicatios prior to arrival Specialty Diagnoses / Procedures Referred By Contac t Referred To Contact Bone Densitometry Diagnoses Osteopenia of neck of left femur Procedures BONE DENSITY AXIAL (HIP, PELVIS, SPINE) Mee Moreno MD [address] [place] [address] [facility] [address] [place] [address] Referral ID Status Reason Start Date Expiration Date Visits Re quested Visits Authorized [id number] Closed 05/27/2021 06/21/2022 1 1 Reason Comments Diabetes 3 month diabetes fol low up, inside labs and personal rayna Reason Comments Follow-up Problem with the bra ce fitting on the right ankle. Rubbing spot and pokes into the leg Reason Comments Follow-up OAB Reason Comments Follow-up Felling better. No p ain. Occasional swelling with certain activities. Follow-up Patient doing better . Still occasional pain with certain activities. Reason Comments Follow-up Onychomycosis, histo ry of cellulitis Reason Comments Follow-up 6 mofu Parkinson's d isease Reason Comments Onychomycosis Follow up Reason Comments Referral Referral for cardiol ogy Medication Refill vascepa Medication Management Discuss Myrbetriq Reason Comments Diabetes Reason Comments Follow-up RLS, HRM, Chol/TG Reason Comments Follow-up Onychomycosis Reason Comments Follow-up Onychomycosis/ hx of cellulitis Reason Comments Follow-up Constipation, osteop enia Reason Comments Follow-up 6 mofu Parkinson's d isease Reason Comments Follow-up Diabetes Rayna DL Reason Comments ER F/U Reason Comments Follow-up Onychomycosis/ hx of cellulitis Reason Comments Nail Trim Nail Problem Ulcer Reason Comments New Patient Evaluation Parkinson's Disease Reason Comments Request Speech Therapy Order Reason Comments Consult CONSTIPATION, SCREEN ING FOR COLON CANCER Specialty Diagnoses / Procedures Referred By Contac t Referred To Contact General Surgery Diagnoses Constipation, unspecified constipation type Screening for colon cancer Procedures CONSULT TO GENERAL SURGERY OFFICE/OUTPATIENT NEW HIGH MDM 60-74 MINUTES Carol Gutierrez MD [address] [place] [address] Referral ID Status Reason Start Date Expiration Date Visits Requested Visits Authorized [id number] Pending Review PCP Requested Referral 09/30/2022 09/30/2023 1 1 Reason Onset Date Comments Population Health Navigation Outreach 12/04/2022 [employer] care gaps Reason Onset Date Comments Refill Request 12/15/2022 Reason Comments ER F/U Reason Comments Physical Therapy Specialty Diagnoses / Procedures Referred By Jose Daniel t Referred To Contact PHYSICAL THERAPY Diagnoses Acute pain of both knees Primary osteoarthritis of both knees Procedures CONSULT TO PHYSICAL THERAPY PHYSICAL THERAPY EVALUATION HIGH COMPLEX 45 MINS Carol Gutierrez MD [address] [place] [address] Pt [facility] [address] [place] [address] Referral ID Status Reason Start Date Expiration Date Visits Requested Visits Authorized [id number] Authorized Auto-Generat ed Referral 03/02/2022 03/01/2023 99 99 Care Teams (unrecognized sec tion and content) Miller Helper Relationship Specialty Start Date End Date Mee Moreno MD PCP - General Internal Medicine 10/25/16 Bella Coleman MD [address] [place] [address] Neurology 12/20/20 Litzy Persaud MD [address] [facility] [place] [address] Interventional Cardiology 12/26/20 Adele Matthews MD [address] [place] [address] [place] [address] Orthopaedic Surgery 12/26/20 Kennedy Avalos MD [address] [place] [address] Endocrinology, Diabetes & Metabolism 12/26/20 Terrance Moseley MD [address] [facility] 1st [place] [address] Urology 12/26/20 Litzy De Dios, DPM [address] [place] [address] Podiatry 12/26/20 GeneseeSilverio breen, DO [address] [place] [address] Clam Grader Dermatology 12/26/20 Miller Helper Relationship Specialty Start Date End Date Mee Moreno MD PCP - General Internal Medicine 10/25/16 Bella Coleman MD [address] [place] [address] Neurology 12/20/20 Litzy Persaud MD [address] [facility] [place] [address] Interventional Cardiology 12/26/20 Adele Matthews MD [address] [facility] [place] [address] Orthopaedic Surgery 12/26/20 Kennedy Avalos MD [address] [place] [address] Endocrinology, Diabetes & Metabolism 12/26/20 Terrance Moseley MD [address] [facility] 1st [place] [address] Urology 12/26/20 Litzy De Dios, DPM [address] [place] [address] Podiatry 12/26/20 Silverio Nguyen, DO [address] [place] [address] Clam Grader Dermatology 12/26/20 Miller Helper Relationship Specialty Start Date End Date Mee Moreno MD PCP - General Internal Medicine 10/25/16 Bella Coleman MD [address] [place] [address] Neurology 12/20/20 Litzy Persaud MD [address] [facility] [place] [address] Interventional Cardiology 12/26/20 Adele Matthews MD [address] [facility] [place] [address] Orthopaedic Surgery 12/26/20 Kennedy Avalos MD [address] [place] [address] Endocrinology, Diabetes & Metabolism 12/26/20 Terrance Moseley MD [address] [facility] 1st [place] [address] Urology 12/26/20 Litzy De Dios, DPM [address] [place] [address] Podiatry 12/26/20 Silverio Nguyen, DO [address] [place] [address] Clam Grader Dermatology 12/26/20 Miller Helper Relationship Specialty Start Date End Date Mee Moreno MD PCP - General Internal Medicine 10/25/16 Miller Helper Relationship Specialty Start Date End Date Mee Moreno MD PCP - General Internal Medicine 10/25/16 Bella Coleman MD [address] [place] [address] Neurology 12/20/20 Litzy Persaud MD [address] [place] [address] Interventional Cardiology 12/26/20 Adele Matthews MD [address] [place] [address] Orthopaedic Surgery 12/26/20 Kennedy Avalos MD [address] [place] [address] Endocrinology, Diabetes & Metabolism 12/26/20 Terrance Moseley MD [address] [facility] 1st [place] [address] Urology 12/26/20 Litzy De Dios, DPRonda [address] [place] [address] Podiatry 12/26/20 Silverio Nguyen DO [address] [place] [address] Clam Grader Dermatology 12/26/20 Miller Helper Relationship Specialty Start Date End Date Mee Moreno MD PCP - General Internal Medicine 10/25/16 Bella Coleman MD [address] [place] [address] Neurology 12/20/20 Litzy Persaud MD [address] [place] [address] Interventional Cardiology 12/26/20 Adele Matthews MD [address] [facility] [place] [address] Orthopaedic Surgery 12/26/20 Kennedy Avalos MD [address] [place] [address] Endocrinology, Diabetes & Metabolism 12/26/20 Terrance Moseley MD [address] [facility] 1st [place] [address] Urology 12/26/20 Litzy De Dios DPRonda [address] [place] [address] Podiatry 12/26/20 [place] [address] [place] [address] Clam Grader Dermatology 12/26/20 Miller Helper Relationship Specialty Start Date End Date Mee Moreno MD PCP - General Internal Medicine 10/25/16 Bella Coleman MD [address] [place] [address] Neurology 12/20/20 Litzy Persaud MD [address] [facility] [place] [address] Interventional Cardiology 12/26/20 Adele Matthews MD [address] [facility] [place] [address] Orthopaedic Surgery 12/26/20 Kennedy Avalos MD [address] [place] [address] Endocrinology, Diabetes & Metabolism 12/26/20 Terrance Moseley MD [address] [place] [address] Urology 12/26/20 Litzy De Dios, DPM [address] [place] [address] Podiatry 12/26/20 GeneseeSilverio breen, DO [address] [place] [address] Clam Grader Dermatology 12/26/20 Miller Helper Relationship Specialty Start Date End Date Mee Moreno MD PCP - General Internal Medicine 10/25/16 Bella Coleman MD [address] [place] [address] Neurology 12/20/20 Litzy Persaud MD [address] [place] [address] Interventional Cardiology 12/26/20 Adele Matthews MD [address] [facility] [place] [address] [place] [address] Orthopaedic Surgery 12/26/20 Kennedy Avalos MD [address] [place] [address] Endocrinology, Diabetes & Metabolism 12/26/20 Terrance Moseley MD [address] [place] [address] Urology 12/26/20 Litzy De Dios DPM [address] [facility] [address] Podiatry 12/26/20 Silverio Nguyen, DO [address] [place] [address] Clam Grader Dermatology 12/26/20 Miller Helper Relationship Specialty Start Date End Date Mee Moreno MD PCP - General Internal Medicine 10/25/16 Bella Coleman MD [address] [place] [address] Neurology 12/20/20 Litzy Persaud MD [address] [place] [address] Interventional Cardiology 12/26/20 Adele Matthews MD [address] [facility] [place] [address] Orthopaedic Surgery 12/26/20 Kennedy Avalos MD [address] [place] [address] Endocrinology, Diabetes & Metabolism 12/26/20 Terrance Moseley MD [address] [facility] 1st [place] [address] Urology 12/26/20 Litzy De Dios, DPM [address] [place] [address] Podiatry 12/26/20 Silverio Nguyen, DO [address] [place] [address] Clam Grader Dermatology 12/26/20 Miller Helper Relationship Specialty Start Date End Date Mee Moreno MD PCP - General Internal Medicine 10/25/16 Bella Coleman MD [address] [place] [address] Neurology 12/20/20 Litzy Persaud MD [address] [facility] [place] [address] Interventional Cardiology 12/26/20 Adele Matthews MD [address] [place] [address] [place] [address] Orthopaedic Surgery 12/26/20 Kennedy Avalos MD [address] [place] [address] Endocrinology, Diabetes & Metabolism 12/26/20 Terrance Moseley MD [address] [facility] 1st [place] [address] Urology 12/26/20 Litzy De Dios DPM [address] [place] [address] Podiatry 12/26/20 Genesee, Silverio, DO [address] [facility] [place] [address] Clam Grader Dermatology 12/26/20 Miller Helper Relationship Specialty Start Date End Date Mee Moreno MD PCP - General Internal Medicine 10/25/16 Bella Coleman MD [address] [place] [address] Neurology 12/20/20 Litzy Persaud MD [address] [facility] [place] [address] Interventional Cardiology 12/26/20 Adele Matthews MD [address] [facility] [place] [address] Orthopaedic Surgery 12/26/20 Kennedy Avalos MD [address] [place] [address] Endocrinology, Diabetes & Metabolism 12/26/20 Terrance Moseley MD [address] [place] [address] Urology 12/26/20 Litzy De Dios, DPM [address] [place] [address] Podiatry 12/26/20 Genesee, Silverio, DO [address] [place] [address] Clam Grader Dermatology 12/26/20 Miller Helper Relationship Specialty Start Date End Date Mee Moreno MD PCP - General Internal Medicine 10/25/16 Bella Coleman MD [address] [place] [address] Neurology 12/20/20 Litzy Persaud MD [address] [place] [address] Interventional Cardiology 12/26/20 Adele Matthews MD [address] [facility] [place] [address] [place] [address] Orthopaedic Surgery 12/26/20 Kennedy Avalos MD [address] [place] [address] Endocrinology, Diabetes & Metabolism 12/26/20 Terrance Moseley MD [address] [place] [address] Urology 12/26/20 Litzy De Dios, DPRonda [address] [place] [address] Podiatry 12/26/20 GeneseeSilverio, DO [address] [facility] [place] [address] Clam Grader Dermatology 12/26/20 Miller Helper Relationship Specialty Start Date End Date Mee Moreno MD PCP - General Internal Medicine 10/25/16 Bella Coleman MD [address] [place] [address] Neurology 12/20/20 Litzy Persaud MD [address] [place] [address] Interventional Cardiology 12/26/20 Adele Matthews MD [address] [facility] [place] [address] Orthopaedic Surgery 12/26/20 Kennedy Avalos MD [address] [place] [address] Endocrinology, Diabetes & Metabolism 12/26/20 Terrance Moseley MD [address] [facility] 1st [place] [address] Urology 12/26/20 Litzy De Dios, DPM [address] [place] [address] Podiatry 12/26/20 Wendy Silverio, DO [address] [place] [address] Clam Grader Dermatology 12/26/20 Miller Helper Relationship Specialty Start Date End Date Mee Moreno MD PCP - General Internal Medicine 10/25/16 Bella Coleman MD [address] [place] [address] Neurology 12/20/20 Litzy Persaud MD [address] [facility] [place] [address] Interventional Cardiology 12/26/20 Adele Matthews MD [address] [facility] [place] [address] Orthopaedic Surgery 12/26/20 Kennedy Avalos MD [address] [place] [address] Endocrinology, Diabetes & Metabolism 12/26/20 Terrance Moseley MD [address] [facility] 1st [place] [address] Urology 12/26/20 Litzy De Dios DPM [address] [place] [address] Podiatry 12/26/20 Genesee, Silverio, DO [address] [place] [address] Clam Grader Dermatology 12/26/20 Miller Helper Relationship Specialty Start Date End Date Mee Moreno MD PCP - General Internal Medicine 10/25/16 Bella Coleman MD [address] [place] [address] Neurology 12/20/20 Litzy Persaud MD [address] [facility] [place] [address] Interventional Cardiology 12/26/20 Adele Matthews MD [address] [place] [address] Orthopaedic Surgery 12/26/20 Kennedy Avalos MD [address] [place] [address] Endocrinology, Diabetes & Metabolism 12/26/20 Terrance Moseley MD [address] [place] [address] Urology 12/26/20 Litzy De Dios, DPM [address] [place] [address] Podiatry 12/26/20 Silverio Nguyen DO [address] [place] [address] Clam Grader Dermatology 12/26/20 Miller Helper Relationship Specialty Start Date End Date Mee Moreno MD PCP - General Internal Medicine 10/25/16 Bella Coleman MD [address] [place] [address] Neurology 12/20/20 Litzy Persaud MD [address] [facility] [place] [address] Interventional Cardiology 12/26/20 Adele Matthews MD [address] [facility] [place] [address] [place] [address] Orthopaedic Surgery 12/26/20 Kennedy Avalos MD 270 [place] [address] Endocrinology, Diabetes & Metabolism 12/26/20 Terrance Moseley MD [address] [place] [address] Urology 12/26/20 Litzy De Dios, DPM [address] [place] [address] Podiatry 12/26/20 Silverio Nguyen DO [address] [place] [address] Clam Grader Dermatology 12/26/20 Natalie Julien, OD [address] [place] [phone] Optometry 03/14/22 Miller Helper Relationship Specialty Start Date End Date Mee Moreno MD PCP - General Internal Medicine 10/25/16 Bella Coleman MD [address] [place] [address] Neurology 12/20/20 Litzy Persaud MD [address] [place] [address] Interventional Cardiology 12/26/20 Adele Matthews MD [address] [facility] [place] [address] [place] [address] Orthopaedic Surgery 12/26/20 Kennedy Avalos MD [address] [place] [address] Endocrinology, Diabetes & Metabolism 12/26/20 Terrance Moseley MD [address] [facility] 1st [place] [address] Urology 12/26/20 Litzy De Dios, DPM [address] [place] [address] Podiatry 12/26/20 Wendy Silverio, DO [address] [place] [address] Clam Grader Dermatology 12/26/20 Natalie Julien, OD [address] [place] [phone] Optometry 03/14/22 Miller Helper Relationship Specialty Start Date End Date Mee Moreno MD PCP - General Internal Medicine 10/25/16 Bella Coleman MD [address] [place], [place] [id number] Neurology 12/20/20 Litzy Persaud MD [address] [place] [address] Interventional Cardiology 12/26/20 Adele Matthews MD [address] [facility] [place] [address] [place] [address] Orthopaedic Surgery 12/26/20 Kennedy Avalos MD [address] [place] [address] Endocrinology, Diabetes & Metabolism 12/26/20 Terrance Moseley MD [address] [facility] 1st [place] [address] Urology 12/26/20 Litzy De Dios, DPM [address] [place] [address] Podiatry 12/26/20 Silverio Nguyen, DO [address] [place] [address] Clam Grader Dermatology 12/26/20 Natalie Julien, OD [address] [place] [phone] Optometry 03/14/22 Miller Helper Relationship Specialty Start Date End Date Mee Moreno MD PCP - General Internal Medicine 10/25/16 Bella Coleman MD [address] [place] [address] Neurology 12/20/20 Litzy Persaud MD [address] [facility] [place] [address] Interventional Cardiology 12/26/20 Adele Matthews MD [address] [facility] [place] [address] [place] [address] Orthopaedic Surgery 12/26/20 Kennedy Avalos MD [address] [place] [address] Endocrinology, Diabetes & Metabolism 12/26/20 Terrance Moseley MD [address] [facility] 1st [place] [address] Urology 12/26/20 Litzy De Dios, DPM [address] [place] [address] Podiatry 12/26/20 Silverio Nguyen, DO [address] [place] [address] Clam Grader Dermatology 12/26/20 Natalie Julien, OD [address] [place] [address] Optometry 03/14/22 Miller Helper Relationship Specialty Start Date End Date Bella Coleman MD [address] [facility] [address] Referring Neurology 07/18/22 Miller Helper Relationship Specialty Start Date End Date Mee Moreno MD PCP - General Internal Medicine 10/25/16 Bella Coleman MD [address] [place] [address] Neurology 12/20/20 Litzy Persaud MD [address] [place] [address] Interventional Cardiology 12/26/20 Adele Matthews MD [address] [place] [address] [place] [address] Orthopaedic Surgery 12/26/20 Kennedy Avalos MD [address] [place] [address] Endocrinology, Diabetes & Metabolism 12/26/20 Terrance Moseley MD [address] [facility] 1st [place] [address] Urology 12/26/20 Litzy De Dios DPM [address] [place] [address] Podiatry 12/26/20 Silverio Nguyen DO [address] [place] [address] Clam Grader Dermatology 12/26/20 Natalie Julien OD [address] [place] [phone] Optometry 03/14/22 Miller Helper Relationship Specialty Start Date End Date Mee Moreno MD PCP - General Internal Medicine 10/25/16 Bella Coleman MD [address] [place] [address] Neurology 12/20/20 Litzy Persaud MD [address] [place] [address] Interventional Cardiology 12/26/20 Adele Matthews MD [address] [place] [address] [place] [address] Orthopaedic Surgery 12/26/20 Kennedy Avalos MD [address] [place] [address] Endocrinology, Diabetes & Metabolism 12/26/20 Terrance Moseley MD [address] [facility] 1st [place] [address] Urology 12/26/20 Litzy De Dios DPM [address] [place] [address] Podiatry 12/26/20 Silverio Nguyen DO [address] [place] [address] Clam Grader Dermatology 12/26/20 Natalie Julien OD [address] [place] [phone] Optometry 03/14/22 Miller Helper Relationship Specialty Start Date End Date Carol Gutiererz MD [address] [place] [address] PCP - General Family Medicine 09/30/22 Bella Coleman MD [address] [place] [address] Referring Neurology 07/18/22 Miller Helper Relationship Specialty Start Date End Date Carol Gutierrez MD [address] [place] [address] PCP - General Family Medicine 09/30/22 Bella Coleman MD [address] [place] [address] Referring Neurology 07/18/22 Miller Helper Relationship Specialty Start Date End Date Carol Gutierrez MD [address] [place] [address] PCP - General Family Medicine 09/30/22 Bella Coleman MD [address] [place] [address] Referring Neurology 07/18/22 Miller Helper Relationship Specialty Start Date End Date Carol Gutierrez MD [address] [place] [address] PCP - General Family Medicine 09/30/22 Bella Coleman MD [address] [place] [address] Referring Neurology 07/18/22 Miller Helper Relationship Specialty Start Date End Date Carol Gutierrez MD [address] [place] [address] PCP - General Family Medicine 09/30/22 Bella Coleman MD [address] [place] [address] Referring Neurology 07/18/22 Miller Helper Relationship Specialty Start Date End Date aCrol Gutierrez MD [address] [place] [address] PCP - General Family Medicine 09/30/22 Bella Coleman MD [address] [place] [address] Referring Neurology 07/18/22 Miller Helper Relationship Specialty Start Date End Date Carol Gutierrez MD [address] [place] [address] PCP - General Family Medicine 09/30/22 Bella Coleman MD [address] [place] [address] Referring Neurology 07/18/22 Miller Helper Relationship Specialty Start Date End Date Carol Gutierrez MD [address] [place] [address] PCP - General Family Medicine 09/30/22 Bella Coleman MD [address] [place] [address] Referring Neurology 07/18/22 Scheduled Active and Recently Administ ered Medications (unrecognized section and content) Source Comments (unrecognize d section and content) In the event this informatio n is protected by the Federal Confidentiality of Alcohol and Drug Abuse Patient Records regulations: The Federal rules restrict any use of the information to criminally investigate or prosecute any alcohol or drug abuse patient.[facility] the event this information is protected by the Federal Confidentiality of Alcohol and Drug Abuse Patient Records regulations: The Federal rules restrict any use of the information to criminally investigate or prosecute any alcohol or drug abuse patient.[facility] the event this information is protected by the Federal Confidentiality of Alcohol and Drug Abuse Patient Records regulations: The Federal rules restrict any use of the information to criminally investigate or prosecute any alcohol or drug abuse patient.[facility] the event this information is protected by the Federal Confidentiality of Alcohol and Drug Abuse Patient Records regulations: The Federal rules restrict any use of the information to criminally investigate or prosecute any alcohol or drug abuse patient.[facility] the event this information is protected by the Federal Confidentiality of Alcohol and Drug Abuse Patient Records regulations: The Federal rules restrict any use of the information to criminally investigate or prosecute any alcohol or drug abuse patient.[facility] the event this information is protected by the Federal Confidentiality of Alcohol and Drug Abuse Patient Records regulations: The Federal rules restrict any use of the information to criminally investigate or prosecute any alcohol or drug abuse patient.[facility] Hospital[facility] the event this information is protected by the Federal Confidentiality of Alcohol and Drug Abuse Patient Records regulations: The Federal rules restrict any use of the information to criminally investigate or prosecute any alcohol or drug abuse patient.[facility] Hospital[facility] the event this information is protected by the Federal Confidentiality of Alcohol and Drug Abuse Patient Records regulations: The Federal rules restrict any use of the information to criminally investigate or prosecute any alcohol or drug abuse patient.[facility] the event this information is protected by the Federal Confidentiality of Alcohol and Drug Abuse Patient Records regulations: The Federal rules restrict any use of the information to criminally investigate or prosecute any alcohol or drug abuse patient.[facility] Hospital[facility] the event this information is protected by the Federal Confidentiality of Alcohol and Drug Abuse Patient Records regulations: The Federal rules restrict any use of the information to criminally investigate or prosecute any alcohol or drug abuse patient.[facility] FOR RECORDS PERTAINING TO PATIENTS WHO ARE OR HAVE BEEN ENROLLED IN A CHEMICAL DEPENDENCY/SUBSTANCEABUSE PROGRAM, SOME INFORMATION MAY BE OMITTED. This clinical summary was aggregated from multiple sources. Caution should be exercised in using it in the provision of clinical care. This summary normalizes information from multiple sources, and as a consequence, information in this document may materially change the coding, format and clinical context of patient data. In addition, data may be omitted in some cases. CLINICAL DECISIONS SHOULD BE BASED ON THE PRIMARY CLINICAL RECORDS. [facility] [employer] [facility]. provides no warranty or guarantee of the accuracy or completeness of information in this document.
--- OUTSIDE RECORDS SUMMARY | 2023-02-26 01:30 | XMS RPT_ITS | CCD ---
Author Name Unknown Address [address] [place] [address] Organization [facility] Care Team Providers Care Checker And Packer Name Role Phone Mee MORENO Unavailable Unavailable [...] Avalos MD Unavailable Terrance Moseley MD Unavailable Litzy De Dios DPM Unavailable Silverio Nguyen DO Unavailable Moreno MD, R Kennedy Primary Care Provider Tiffanie MENDIETA, R Kennedy Primary Care Provider [phone] Jared MENDIETA, Bella Unavailable Hung MENDIETA, Litzy Conn Unavailable Cassie MENDIETA, Adele Malik Unavailable Robbie MENDIETA, Kennedy M Unavailable [phone] Pradip MENDIETA, Terrance Tyson Unavailable [phone] Lanre HERNANDEZ, Litzy Bonilla Unavailable Hastings Silverio LOBATO Unavailable CASSIE, ADELE L Attending [...] Primary Care Unavailable RITO, DEBBIE Referring Unavailable RTIO, DEBBIE Attending Unavailable MORENO, R KENNEDY Primary [...] Unavailable Lanaomieer OD, Natalie J Unavailable [phone] Mee Moreno MD Primary Care Provider BELLA [...] COLEMAN Attending Unavailable SELF, SELF Referring Unavailable MORENO, R KENNEDY Primary Care Unavailable Jared MENDIETA, Bella Unavailable Tiffanie MENDIETA, R Kennedy Primary Care Provider [phone] Jared MENDIETA, Bella Unavailable Litzy Persaud MD Unavailable Cassie MENDIETA, Adele Malik Unavailable Robbie MENDIETA, Kennedy Bond Unavailable Pradip MENDIETA, Terrance J Unavailable [phone] Litzy De Dios DPM Unavailable Hastings DO, Silverio Unavailable Sylviachristopheragustina OD, Natalie J Unavailable [phone] MORENO, R KENNEDY Attending Unavailable MORENO, R [...] Unavailable RITO, DEBBIE Attending Unavailable MORENO, R KENNEYD Primary Care Unavailable MORENO, R KENNEDY Referring [...] Care Unavailab NADEEM Moreno Attending Unavailable NEVAEH KICTHEN Attending Unavailable CAROL GUTIERREZ Referring Unavailab CAROL Arce Primary Care Unavailab le CAROL GUTIERREZ Primary Care Unavailab MICHEAL Cam Attending Unavailable CAROL GUTIERREZ Attending Unavail le Allergies Allergy Classification Reported Allergen(s) Allergy Type Date of Onset Reaction(s) Facility Angiotensin Converting Enzyme (OLGA) Inhibitors (2 sources) Lisinopril Drug Allergy 06-14-19 09 Other (See Comments) [facility] HMG-CoA Reductase Inhibitors (statins) (4 sources) atorvastatin Drug Allergy 07-23-19 11 Other (See Comments) [facility] raNITIdine (2 sources) raNITIdine Drug Allergy 02-26-20 07 Other (See Comments), GI Intolerance [facility] Sulfamethoxazole / Trimethoprim (2 sources) Sulfamethoxazole / Trimethoprim Drug Allergy 08-02-19 21 Shortness Of Breath [facility] (20 sources) atorvastatin; Translations: [ATORVASTATIN] Drug Allergy 07-23-19 11 Myalgia, Intolerance [facility] Work Phone: (20 sources) Lisinopril; Translations: [LISINOPRIL] Drug Allergy 06-14-19 09 Cough, Other (See Comments) [facility] Work Phone: (20 sources) Pravastatin; Translations: [PRAVASTATIN] Drug Allergy 07-23-19 11 Myalgia, Other (See Comments), Intolerance [facility] Work Phone: (20 sources) raNITIdine; Translations: [RANITIDINE] Drug Allergy 02-26-20 07 Nausea Only, Other (See Comments), GI Intolerance, Intolerance [facility] Work Phone: (1 source) atorvastatin Drug Allergy 07-23-19 11 Other (See Comments) [facility] (20 sources) Sulfamethoxazole / Trimethoprim; Translations: [SULFAMETHOXAZOLE-T RIMETHOPRIM] Drug Allergy 09-22-19 20 Shortness Of Breath, Hives [facility] (20 sources) Bacitracin Drug Allergy 03-05-19 21 Contact Dermatitis, Itchy Throat, Rash, Runny Nose [facility] Work Phone: (20 sources) carvedilol Drug Allergy 07-25-19 21 Dyspepsia [facility] (20 sources) hydrOXYzine Drug Allergy 10-03-19 20 Confusion [facility] (20 sources) levoFLOXacin Drug Allergy 09-24-19 20 [facility] (20 sources) NSAIDs Propensity to adverse reactions to drug 12-10-19 19 [facility] (20 sources) ubidecarenone / vitamin E Drug Allergy 01-11-20 19 Dreams, Abnormal [facility] (1 source) traMADol Drug Allergy 04-02-19 21 Abdominal Discomfort [facility] (19 sources) Penicillins Propensity to adverse reactions to drug 06-12-19 22 Rash [facility] Work Phone: (1 source) atorvastatin; Translations: [ATORVASTATIN CALCIUM] Drug Allergy 07-23-19 11 [facility] Medications Current Medications Medication Drug Class(es) [...] 9 09-27-2019 Chronic Other aftercare (2 sources) halfway (current) use of insulin; Translations: [halfway (current) use of insulin] Onset: 3 Episodic [...] 66 mm[Hg] Carol Gutierrez MD Work Phone: [facility] 01-12-2023 09:30-0500 Heart rate 88 /min Carol Gutierrez MD Work Phone: [facility] 01-12-2023 09:30-0500 Respiratory rate 16 /min Carol Gutierrez MD Work Phone: [facility] 01-12-2023 09:30-0500 SaO2% (BldA) [Mass fraction] 99 % Carol Gutierrez MD Work Phone: [facility] 01-12-2023 09:30-0500 Systolic blood pressure 136 mm[Hg] Carol Gutierrez MD Work Phone: [facility] 11-19-2022 09:41-0400 Diastolic blood pressure 74 mm[Hg] Nevaeh Kitchen MD Work Phone: [facility] 11-19-2022 09:41-0400 Heart rate 78 /min Nevaeh Kitchen MD Work Phone: [facility] 11-19-2022 09:41-0400 Respiratory rate 16 /min Nevaeh Kitchen MD Work Phone: [facility] 11-19-2022 09:41-0400 SaO2% (BldA) [Mass fraction] 95 % Nevaeh Kitchen MD Work Phone: [facility] 11-19-2022 09:41-0400 Systolic blood pressure 142 mm[Hg] Nevaeh Kitchen MD Work Phone: [facility] 11-19-2022 07:45-0400 Body temperature 98.29 [degF] Nevaeh Kitchen MD Work Phone: [facility] 11-19-2022 07:45-0400 Body weight 119.6 kg Nevaeh Kitchen MD Work Phone: [facility] 10-21-2022 10:19-0400 Body height 182.9 cm Nevaeh Kitchen MD Work Phone: [facility] 10-21-2022 10:19-0400 Body temperature 97.9 [degF] Nevaeh Kitchen MD Work Phone: [facility] 10-21-2022 10:19-0400 Body weight 119.57 kg Nevaeh Kitchen MD Work Phone: [facility] 10-21-2022 10:19-0400 Diastolic blood pressure 78 mm[Hg] Nevaeh Kitchen MD Work Phone: [facility] 10-21-2022 10:19-0400 Heart rate 98 /min Nevaeh Kitchen MD Work Phone: [facility] 10-21-2022 10:19-0400 SaO2% (BldA) [Mass fraction] 99 % Nevaeh Kitchen MD Work Phone: [facility] 10-21-2022 10:19-0400 Systolic blood pressure 140 mm[Hg] Nevaeh Kitchen MD Work Phone: [facility] 10-16-2022 13:010400 Body height 182.9 cm Micheal Perez MD Work Phone: [facility] 10-16-2022 13:01-0400 Body weight 121.52 kg Micheal Perez MD Work Phone: [facility] 10-16-2022 13:01-0400 SaO2% (BldA) [Mass fraction] 98 % Micheal Perez MD Work Phone: [facility] 09-09-2022 14:49-0400 Body height 182.9 cm Litzy De Dios DPM Work Phone: [facility] 09-09-2022 14:49-0400 Body mass index (BMI) [Ratio] 36.08 kg/m2 Litzy De Dios DPM Work Phone: [facility] 09-09-2022 14:49-0400 Body weight 120.66 kg Litzy De Dios DPM Work Phone: [facility] 09-09-2022 14:49-0400 Diastolic blood pressure 90 mm[Hg] Litzy De Dios DPM Work Phone: [facility] 09-09-2022 14:49-0400 Heart rate 80 /min Litzy De Dios DPM Work Phone: [facility] 09-09-2022 14:49-0400 Systolic blood pressure 170 mm[Hg] Litzy De Dios DPM Work Phone: [facility] 08-29-2022 11:01-0400 Body height 182.9 cm Toño Kelley MD Work Phone: [facility] 08-29-2022 11:01-0400 Body mass index (BMI) [Ratio] 36.16 kg/m2 Toño Kelley MD Work Phone: [facility] 08-29-2022 11:01-0400 Body temperature 96.69 [degF] Toño Kelley MD Work Phone: [facility] 08-29-2022 11:01-0400 Body weight 120.93 kg Toño Kelley MD Work Phone: [facility] 08-29-2022 11:01-0400 Diastolic blood pressure 68 mm[Hg] Toño Kelley MD Work Phone: [facility] 08-29-2022 11:01-0400 Heart rate 84 /min Toño Kelley MD Work Phone: [facility] 08-29-2022 11:01-0400 Respiratory rate 18 /min Toño Kelley MD Work Phone: [facility] 08-29-2022 11:01-0400 SaO2% (BldA) [Mass fraction] 96 % Toño Kelley MD Work Phone: [facility] 08-29-2022 11:01-0400 Systolic blood pressure 150 mm[Hg] Toño Kelley MD Work Phone: [facility] 08-15-2022 09:02-0400 Body temperature 98.1 [degF] Carol Gutierrez MD Work Phone: [facility] 08-15-2022 09:02-0400 Body weight 120.66 kg Carol Gutierrez MD Work Phone: [facility] 08-15-2022 09:02-0400 Diastolic blood pressure 70 mm[Hg] Carol Gutierrez MD Work Phone: [facility] 08-15-2022 09:02-0400 Heart rate 78 /min Carol Gutierrez MD Work Phone: [facility] 08-15-2022 09:02-0400 Respiratory rate 16 /min Carol Gutierrez MD Work Phone: [facility] 08-15-2022 09:02-0400 SaO2% (BldA) [Mass fraction] 95 % Carol Gutierrez MD Work Phone: [facility] 08-15-2022 09:02-0400 Systolic blood pressure 118 mm[Hg] Carol Gutierrez MD Work Phone: [facility] 06-19-2022 09:39-0400 Body height 182.9 cm Debbie Veras CNP Work Phone: [facility] 06-19-2022 09:39-0400 Body mass index (BMI) [Ratio] 35.8 kg/m2 Debbie Veras CNP Work Phone: [facility] 06-19-2022 09:39-0400 Body weight 119.75 kg Debbie Veras CNP Work Phone: [facility] 06-19-2022 09:39-0400 Diastolic blood pressure 70 mm[Hg] Debbie Veras CNP Work Phone: [facility] 06-19-2022 09:39-0400 Heart rate 84 /min Debbie Veras CNP Work Phone: [facility] 06-19-2022 09:39-0400 SaO2% (BldA) [Mass fraction] 97 % Debbie Veras CNP Work Phone: [facility] 06-19-2022 09:39-0400 Systolic blood pressure 132 mm[Hg] Debbie Veras CNP Work Phone: [facility] 05-23-2022 13:41-0400 Body height 182.9 cm Bella Coleman MD Work Phone: [facility] 05-23-2022 13:41-0400 Body mass index (BMI) [Ratio] 36.35 kg/m2 Bella Coleman MD Work Phone: [facility] 05-23-2022 13:41-0400 Body weight 121.56 kg Bella Coleman MD Work Phone: [facility] 05-23-2022 13:41-0400 Diastolic blood pressure 81 mm[Hg] Bella Coleman MD Work Phone: [facility] [employer] [facility] 05-23-2022 13:41-0400 Heart rate 92 /min Bella Coleman MD Work Phone: [facility] 05-23-2022 13:41-0400 SaO2% (BldA) [Mass fraction] 98 % Bella Coleman MD Work Phone: [employer] [facility] 05-23-2022 13:41-0400 Systolic blood pressure 145 mm[Hg] Bella Coleman MD Work Phone: [employer] [facility] 05-20-2022 13:47-0400 Body height 182.9 cm KT Moreno MD Work Phone: [employer] [facility] 05-20-2022 13:47-0400 Body mass index (BMI) [Ratio] 35.93 kg/m2 KT Moreno MD Work Phone: [employer] [facility] 05-20-2022 13:47-0400 Body temperature 97.5 [degF] KT Moreno MD Work Phone: [employer] [facility] 05-20-2022 13:47-0400 Body weight 120.2 kg KT Moreno MD Work Phone: [facility] 05-20-2022 13:47-0400 Diastolic blood pressure 68 mm[Hg] KT Moreno MD Work Phone: [facility] 05-20-2022 13:47-0400 Heart rate 96 /min KT Moreno MD Work Phone: [facility] 05-20-2022 13:47-0400 Respiratory rate 16 /min KT Moreno MD Work Phone: [facility] 05-20-2022 13:47-0400 SaO2% (BldA) [Mass fraction] 97 % KT Moreno MD Work Phone: [facility] 05-20-2022 13:47-0400 Systolic blood pressure 132 mm[Hg] KT Moreno MD Work Phone: [facility] 05-07-2022 10:53-0500 Body height 182.9 cm Toño Kelley MD Work Phone: [facility] 05-07-2022 10:53-0500 Body mass index (BMI) [Ratio] 35.98 kg/m2 Toño Kelley MD Work Phone: [facility] 05-07-2022 10:53-0500 Body temperature 97.39 [degF] Toño Kelley MD Work Phone: [facility] 05-07-2022 10:53-0500 Body weight 120.34 kg Toño Kelley MD Work Phone: [facility] 05-07-2022 10:53-0500 Diastolic blood pressure 80 mm[Hg] Toño Kelley MD Work Phone: [facility] 05-07-2022 10:53-0500 Heart rate 85 /min Toño Kelley MD Work Phone: [facility] 05-07-2022 10:53-0500 Respiratory rate 14 /min Toño Kelley MD Work Phone: [facility] 05-07-2022 10:53-0500 SaO2% (BldA) [Mass fraction] 98 % Toño Kelley MD Work Phone: [facility] 05-07-2022 10:53-0500 Systolic blood pressure 136 mm[Hg] Toño Kelley MD Work Phone: [facility] 02-04-2022 10:58-0500 Body height 182.9 cm Toño Kelley MD Work Phone: [facility] 02-04-2022 10:58-0500 Body mass index (BMI) [Ratio] 35.72 kg/m2 Toño Kelley MD Work Phone: [facility] 02-04-2022 10:58-0500 Body temperature 98.4 [degF] Toño Kelley MD Work Phone: [facility] 02-04-2022 10:58-0500 Body weight 119.48 kg Toño Kelley MD Work Phone: [facility] 02-04-2022 10:58-0500 Diastolic blood pressure 82 mm[Hg] Toño Kelley MD Work Phone: [facility] 02-04-2022 10:58-0500 Heart rate 83 /min Toño Kelley MD Work Phone: [facility] 02-04-2022 10:58-0500 Respiratory rate 14 /min Toño Kelley MD Work Phone: [facility] 02-04-2022 10:58-0500 SaO2% (BldA) [Mass fraction] 97 % Toño Kelley MD Work Phone: [facility] 02-04-2022 10:58-0500 Systolic blood pressure 126 mm[Hg] Toño Kelley MD Work Phone: [facility] 01-31-2022 12:56-0500 Body height 182.9 cm Yannakristopher Chappell POULTRY HATCHERY SUPERVISOR Work Phone: [facility] 01-31-2022 12:56-0500 Body mass index (BMI) [Ratio] 35.67 kg/m2 Yannakristopher Aguilarton POULTRY HATCHERY SUPERVISOR Work Phone: [facility] 01-31-2022 12:56-0500 Body weight 119.3 kg Yannakristopher Aguilarton POULTRY HATCHERY SUPERVISOR Work Phone: [facility] 01-31-2022 12:56-0500 Respiratory rate 18 /min Yannakristopher Aguilarton POULTRY HATCHERY SUPERVISOR Work Phone: [facility] 01-31-2022 12:56-0500 SaO2% (BldA) [Mass fraction] 98 % Yannakristopher Aguilarton POULTRY HATCHERY SUPERVISOR Work Phone: [facility] 01-21-2022 13:07-0500 Body height 182.9 cm KT Moreno MD Work Phone: [facility] 01-21-2022 13:07-0500 Body mass index (BMI) [Ratio] 35.66 kg/m2 KT Moreno MD Work Phone: [facility] 01-21-2022 13:07-0500 Body temperature 97.59 [degF] KT Moreno MD Work Phone: [facility] 01-21-2022 13:07-0500 Body weight 119.3 kg KT Moreno MD Work Phone: [facility] 01-21-2022 13:07-0500 Diastolic blood pressure 64 mm[Hg] KT Moreno MD Work Phone: [facility] 01-21-2022 13:07-0500 Heart rate 84 /min KT Moreno MD Work Phone: [facility] 01-21-2022 13:07-0500 Respiratory rate 18 /min KT Moreno MD Work Phone: [facility] 01-21-2022 13:07-0500 SaO2% (BldA) [Mass fraction] 94 % KT Moreno MD Work Phone: [employer] 01-21-2022 13:07-0500 Systolic blood pressure 124 mm[Hg] KT Moreno MD Work Phone: [facility] 12-23-2021 11:32-0400 Body height 182.9 cm Debbie Camarillotie POULTRY HATCHERY SUPERVISOR Work Phone: [facility] 12-23-2021 11:32-0400 Body mass index (BMI) [Ratio] 34.71 kg/m2 Debbie Rito POULTRY HATCHERY SUPERVISOR Work Phone: [facility] 12-23-2021 11:32-0400 Body weight 116.12 kg Debbie Brandeis POULTRY HATCHERY SUPERVISOR Work Phone: [facility] 12-23-2021 11:32-0400 Diastolic blood pressure 68 mm[Hg] Debbie Brandeis POULTRY HATCHERY SUPERVISOR Work Phone: [facility] 12-23-2021 11:32-0400 Heart rate 92 /min Debbie Rito POULTRY HATCHERY SUPERVISOR Work Phone: [facility] 12-23-2021 11:32-0400 Respiratory rate 18 /min Debbie Veras CNP Work Phone: [facility] 12-23-2021 11:32-0400 SaO2% (BldA) [Mass fraction] 96 % Debbie Veras CNP Work Phone: [facility] 12-23-2021 11:32-0400 Systolic blood pressure 116 mm[Hg] Debbie Veras CNP Work Phone: [facility] 12-10-2021 14:26-0400 Body height 182.9 cm KT Moreno MD Work Phone: [facility] 12-10-2021 14:26-0400 Body mass index (BMI) [Ratio] 35.12 kg/m2 KT Moreno MD Work Phone: [facility] 12-10-2021 14:26-0400 Body temperature 97.5 [degF] KT Moreno MD Work Phone: [employer] 12-10-2021 14:26-0400 Body weight 117.48 kg KT Moreno MD Work Phone: [facility] 12-10-2021 14:26-0400 Diastolic blood pressure 76 mm[Hg] KT Moreno MD Work Phone: [facility] 12-10-2021 14:26-0400 Heart rate 88 /min KT Moreno MD Work Phone: [facility] 12-10-2021 14:26-0400 Respiratory rate 14 /min KT Moreno MD Work Phone: [facility] 12-10-2021 14:26-0400 SaO2% (BldA) [Mass fraction] 97 % KT Moreno MD Work Phone: [facility] 12-10-2021 14:26-0400 Systolic blood pressure 122 mm[Hg] KT Moreno MD Work Phone: [facility] 12-03-2021 10:51-0400 Body height 182.9 cm Toño Kelley MD Work Phone: [facility] 12-03-2021 10:51-0400 Body mass index (BMI) [Ratio] 35.8 kg/m2 Toño Kelley MD Work Phone: [facility] 12-03-2021 10:51-0400 Body temperature 97.5 [degF] Toño Kelley MD Work Phone: [facility] 12-03-2021 10:51-0400 Body weight 119.75 kg Toño Kelley MD Work Phone: [facility] 12-03-2021 10:51-0400 Diastolic blood pressure 92 mm[Hg] Toño Kelley MD Work Phone: [facility] 12-03-2021 10:51-0400 Heart rate 80 /min Toño Kelley MD Work Phone: [facility] 12-03-2021 10:51-0400 Respiratory rate 14 /min Toño Kelley MD Work Phone: [facility] 12-03-2021 10:51-0400 SaO2% (BldA) [Mass fraction] 96 % Toño Kelley MD Work Phone: [facility] 12-03-2021 10:51-0400 Systolic blood pressure 124 mm[Hg] Toño Kelley MD Work Phone: [facility] 11-26-2021 10:44-0400 Body height 182.9 cm Bella Coleman MD Work Phone: [facility] 11-26-2021 10:44-0400 Body mass index (BMI) [Ratio] 35.83 kg/m2 Bella Coleman MD Work Phone: [facility] 11-26-2021 10:44-0400 Body weight 119.84 kg Bella Coleman MD Work Phone: [facility] 11-26-2021 10:44-0400 Diastolic blood pressure 88 mm[Hg] Bella Coleman MD Work Phone: [facility] 11-26-2021 10:44-0400 Heart rate 75 /min Bella Coleman MD Work Phone: [facility] 11-26-2021 10:44-0400 SaO2% (BldA) [Mass fraction] 95 % Bella Coleman MD Work Phone: [facility] 11-26-2021 10:44-0400 Systolic blood pressure 148 mm[Hg] Bella Coleman MD Work Phone: [facility] 09-24-2021 10:09-0400 Body height 182.9 cm Toño Kelley MD Work Phone: [facility] 09-24-2021 10:09-0400 Body mass index (BMI) [Ratio] 36.62 kg/m2 Toño Kelley MD Work Phone: [facility] 09-24-2021 10:09-0400 Body temperature 97.5 [degF] Toño Kelley MD Work Phone: [facility] 09-24-2021 10:09-0400 Body weight 122.47 kg Toño Kelley MD Work Phone: [facility] 09-24-2021 10:09-0400 Diastolic blood pressure 80 mm[Hg] Toño Kelley MD Work Phone: [facility] 09-24-2021 10:09-0400 Heart rate 83 /min Toño Kelley MD Work Phone: [facility] 09-24-2021 10:09-0400 SaO2% (BldA) [Mass fraction] 98 % Toño Kelley MD Work Phone: [facility] 09-24-2021 10:09-0400 Systolic blood pressure 140 mm[Hg] Toño Kelley MD Work Phone: [facility] 08-26-2021 10:53-0400 Body height 182.9 cm Yanna Chappell POULTRY HATCHERY SUPERVISOR Work Phone: [facility] 08-26-2021 10:53-0400 Body mass index (BMI) [Ratio] 36.62 kg/m2 Yanna Chappell POULTRY HATCHERY SUPERVISOR Work Phone: [facility] 08-26-2021 10:53-0400 Body weight 122.47 kg Yanna Chappell POULTRY HATCHERY SUPERVISOR Work Phone: [facility] 08-26-2021 10:53-0400 Respiratory rate 18 /min Yanna Chappell POULTRY HATCHERY SUPERVISOR Work Phone: [facility] 08-14-2021 10:02-0400 Body height 182.9 cm Adele Matthews MD Work Phone: [facility] 08-14-2021 10:02-0400 Body mass index (BMI) [Ratio] 36.62 kg/m2 Adele Matthews MD Work Phone: [facility] 08-14-2021 10:02-0400 Body weight 122.5 kg Adele Matthews MD Work Phone: [facility] 08-14-2021 10:02-0400 Respiratory rate 18 /min Adele Matthews MD Work Phone: [facility] 06-19-2021 10:19-0400 Body height 182.9 cm Debbie Veras POULTRY HATCHERY SUPERVISOR Work Phone: [facility] 06-19-2021 10:19-0400 Body mass index (BMI) [Ratio] 36.69 kg/m2 Debbie Brandeis POULTRY HATCHERY SUPERVISOR Work Phone: [facility] 06-19-2021 10:19-0400 Body weight 122.74 kg Debbie Rito POULTRY HATCHERY SUPERVISOR Work Phone: [facility] 06-19-2021 10:19-0400 Diastolic blood pressure 81 mm[Hg] Debbie Rito POULTRY HATCHERY SUPERVISOR Work Phone: [facility] 06-19-2021 10:19-0400 Heart rate 88 /min Debbie Veras POULTRY HATCHERY SUPERVISOR Work Phone: [facility] 06-19-2021 10:19-0400 Systolic blood pressure 161 mm[Hg] Debbie Veras POULTRY HATCHERY SUPERVISOR Work Phone: [facility] 06-11-2021 12:27-0400 Body height 182.9 cm Adele Matthews MD Work Phone: [facility] [employer] [facility] 06-11-2021 12:27-0400 Body mass index (BMI) [Ratio] 37.16 kg/m2 Adele Matthews MD Work Phone: [facility] [employer] [facility] 06-11-2021 12:27-0400 Body weight 124.3 kg Adele Matthews MD Work Phone: [facility] [employer] [facility] 06-11-2021 12:27-0400 Respiratory rate 18 /min Adele Matthews MD Work Phone: [facility] [employer] [facility] 05-29-2021 09:29-0400 Body height 182.9 cm Adele Matthews MD Work Phone: [employer] [facility] 05-29-2021 09:29-0400 Body mass index (BMI) [Ratio] 36.74 kg/m2 Adele Matthews MD Work Phone: [employer] [facility] 05-29-2021 09:29-0400 Body weight 122.9 kg Adele Matthews MD Work Phone: [employer] [facility] 05-29-2021 09:29-0400 Respiratory rate 14 /min Adele Matthews MD Work Phone: [employer] [facility] 05-27-2021 09:17-0400 Body mass index (BMI) [Ratio] 36.84 kg/m2 Natalie Moreno MD Work Phone: [employer] [facility] 05-27-2021 09:17-0400 Body temperature 97.59 [degF] Natalie Moreno MD Work Phone: [employer] [facility] 05-27-2021 09:17-0400 Body weight 123.2 kg Natalie Moreno MD Work Phone: [employer] 05-27-2021 09:17-0400 Diastolic blood pressure 68 mm[Hg] Natalie Moreno MD Work Phone: [employer] 05-27-2021 09:17-0400 Heart rate 90 /min Natalie Moreno MD Work Phone: [employer] 05-27-2021 09:17-0400 SaO2% (BldA) [Mass fraction] 92 % Natalie Moreno MD Work Phone: [employer] 05-27-2021 09:17-0400 Systolic blood pressure 142 mm[Hg] Natalie Moreno MD Work Phone: [employer] [facility] 10-14-2020 12:58-0400 Diastolic blood pressure 64 mm[Hg] Sukumar Foskey DO Work Phone: [employer] [facility] 10-14-2020 12:58-0400 Heart rate 73 /min Sukumar Foskey DO Work Phone: [employer] 10-14-2020 12:58-0400 Respiratory rate 16 /min Sukumar Foskey DO Work Phone: [employer] [facility] 10-14-2020 12:58-0400 SaO2% (BldA) [Mass fraction] 96 % Sukumar Foskey DO Work Phone: [employer] [facility] 10-14-2020 12:58-0400 Systolic blood pressure 133 mm[Hg] Sukumar Foskey DO Work Phone: [employer] [facility] 10-14-2020 11:00-0400 Body mass index (BMI) [Ratio] 36.07 kg/m2 Sukumar Foskey DO Work Phone: [employer] [facility] 10-14-2020 11:00-0400 Body temperature 97.81 [degF] Sukumar Foskey DO Work Phone: [employer] 10-14-2020 11:00-0400 Body weight 120.66 kg Sukumar Roberts DO Work Phone: [employer] 02-15-2018 13:30-0500 BMI (Body Mass Index) 38.3 kg/m2 NA [facility] Work Phone: 02-15-2018 13:30-0500 BP Diastolic 78 mm[Hg] NA [facility] Work Phone: 02-15-2018 13:30-0500 BP Systolic 132 mm[Hg] NA [facility] Work Phone: 02-15-2018 13:30-0500 Pulse (Heart Rate) 75 /min NA [facility] Work Phone: 02-15-2018 13:30-0500 Pulse Oximetry 95 % NA [facility] Work Phone: 02-15-2018 13:30-0500 Weight 128.[address] [facility] Work Phone: 01-25-2018 14:35-0500 BMI (Body Mass Index) 39.17 kg/m2 [facility] Work Phone: 01-25-2018 14:35-0500 BP Diastolic 64 mm[Hg] NA [facility] Work Phone: 01-25-2018 14:35-0500 BP Systolic 128 mm[Hg] NA [facility] Work Phone: 01-25-2018 14:35-0500 Pulse (Heart Rate) 92 /min [facility] Work Phone: 01-25-2018 14:35-0500 Pulse Oximetry 97 % [facility] Work Phone: 01-25-2018 14:35-0500 Weight [address] [facility] Work Phone: Encounters Encounter Date Encounter Type Care Provider Facility Start: 02-16-2023 End: 02-16-2023 ambulatory CAROL GUTIERREZ Facility:[facility] Start: 02-13-2023 End: 02-13-2023 ambulatory CAROL GUTIERREZ Facility:[facility] Start: 02-13-2023 End: 02-13-2023 ambulatory Taylor Salguero PTA Work Phone: [facility] Physical Therapy Procedures Date Procedure Procedure Detail Performing Clinician Start: 11-19-2022 Gluc bld gluc mntr dev cleared fda spec home use Nevaeh Kitchen MD Work Phone: Start: 11-19-2022 Colonoscopy flx dx w/collj spec when pfrmd Nevaeh Kitcehn MD Work Phone: Start: 11-19-2022 Colonoscopy Brooke Dopart Start: 09-01-2022 Hemoglobin A1c/Hemoglobin.total in Blood Piedad Ruggiero APRN.[employer] Work Phone: Start: 08-15-2022 Gluc bld gluc mntr dev cleared fda spec home use Carol Gutierrez MD Work Phone: Start: 06-19-2022 Continuous glucose monitoring analysis i&r Debbie Veras CNP Work Phone: Start: 04-23-2022 URINE ALBUMIN W/CREAT RATIO Debbie Gaby yee [employer] SUPERVISOR Work Phone: Start: 01-31-2022 Urnls dip stick/tablet rgnt auto w/o microscopy Yanna Chappell [employer] HATCH[employer] SUPERVISOR Work Phone: Start: 12-23-2021 Continuous glucose monitoring analysis i&r Debbie Veras CNP Work Phone: Start: 08-26-2021 Urnls dip stick/tablet rgnt auto w/o microscopy Yanna Chappell POUL[employer] HATCHERY SUPERVISOR Work Phone: Start: 08-14-2021 Arthrocentesis aspir&/inj small [...] Activity Detail Author Start: 11-19-2032 Colonoscopy Colonoscopy [facility] Start: 11-19-2032 Colorectal Cancer Screening Colorectal Cancer Screening [facility] Start: 11-19-2032 Screening for malign ant neoplasm of colon [facility] Start: 11-20-2027 Colonoscopy Colonoscopy [facility] Start: 11-20-2027 Colorectal Cancer Screening Colorectal Cancer Screening [facility] Start: 11-21-2025 Tetanus vaccination [facility] Start: 03-02-2025 Third diphtheria, tetanus and acellular pertussis (DTaP) vaccination TDAP (ADULT) [facility] Immunizations Immunization Date Immunization Notes Care Provider Areli howell 01-21-2022 influenza virus vaccine, unspecified formulation Litzy De Dios DPM Work Phone: [facility] 03-02-2021 COVID-19 vaccine, MR NA, Pfizer, 0.3 ML Natalie Moreno MD Work Phone: [facility] 11-26-2020 influenza virus vaccine, unspecified formulation Toño Kelley MD Work Phone: [facility] 07-12-2020 COVID-19 vaccine, mR NA, Moderna 0.5 ML Natalie Moreno MD Work Phone: [facility] 06-14-2020 COVID-19 vaccine, mR NA, Moderna 0.5 ML Natalie Moreno MD Work Phone: [facility] 01-07-2018 influenza virus vaccine, unspecified formulation Sukumar Roberts DO Work Phone: [facility] 04-22-2017 pneumococcal polysaccharide vaccine, 23 valent; Translations: [PNEUMOCOCCAL POLYSAC 23-VALENT VACCINE] Historical Provider [facility] 11-22-2015 pneumococcal conjuga te vaccine, 13 valent Historical Provider [facility] Work Phone: 11-22-2015 tetanus and diphther ia toxoids, adsorbed, preservative free, for adult use (2 Lf of tetanus toxoid and 2 Lf of diphtheria toxoid) Historical Provider [facility] Work Phone: 01-10-2006 influenza virus vaccine, unspecified formulation Carol Gutierrez MD Work Phone: [facility] Work Phone: 01-13-2004 tetanus and diphther ia toxoids, adsorbed, preservative free, for adult use (2 Lf of tetanus toxoid and 2 Lf of diphtheria toxoid) Sukumar Roberts DO Work Phone: [facility] 01-08-1994 hepatitis B vaccine, unspecified formulation Natalie Moreno MD Work Phone: [facility] 07-12-1993 hepatitis B vaccine, unspecified formulation Natalie Moreno MD Work Phone: [facility] 06-12-1993 hepatitis B vaccine, unspecified formulation Natalie Moreno MD Work Phone: [facility] Payers Date Payer Category Payer Medicare [id number] 2021 Medicare [id number] 2018 Medicare [employer] [facility] MEDICARE PLAN (PPO) xxxxxxxx 2018-Present xxxxxxxx [id number] 2016 Medicare [id number] 2006 Medicare [id number] [id number] 1950 Unknown [id number] 2.16.840.1.890584.3.579.2. 1950 Unknown [id number] 2.16.840.1.485566.3.579.2.90 1950 Unknown [id number] 2.16.840.1.467624.3.579.2.90 1950 Unknown [id number] 2.16.840.1.097101.3.579.2.903 1950 Unknown [id number] 2.16.840.1.454611.3.579.2.983 1950 Unknown [id number] 2.16.840.1.452724.3.579.2.98 1950 Unknown [id number] 2.16.840.1.301769.3.579.2.983 1950 Unknown [id number] 2.16.840.1.545833.3.579.2.98 1950 Unknown [id number] 2.16.840.1.093435.3.579.2.98 1950 Unknown [id number] 2.16.840.1.550240.3.579.2. 1950 Unknown [id number] 2.16.840.1.646310.3.579.2. 1950 Unknown [id number] 2.16.840.1.820882.3.579.2. 1950 Unknown [id number] 2.16.840.1.260490.3.579.2.98 1950 Unknown [id number] 2.16.840.1.966975.3.579.2. 1950 Unknown [id number] 2.16.840.1.062356.3.579.2. 1950 Unknown [id number] 2.16.840.1.605322.3.579.2.98 1950 Unknown [id number] 2.16.840.1.227305.3.579.2.98 1950 Unknown [id number] 2.16.840.1.553979.3.579.2.98 1950 Unknown [id number] 2.16.840.1.079918.3.579.2.98 1950 Unknown [id number] 2.16.840.1.811806.3.579.2.98 1950 Unknown [id number] 2.16.840.1.591232.3.579.2. 1950 Unknown [id number] 2.16.840.1.461535.3.579.2. 1950 Unknown [id number] 2.16.840.1.657374.3.579.2. 1950 Unknown [id number] 2.16.840.1.225268.3.579.2. 1950 Unknown [id number] 2.16.840.1.461489.3.579.2. 1950 Unknown [id number] 2.16.840.1.958351.3.579.2. 1950 Unknown [id number] 2.16.840.1.280085.3.579.2 1950 Unknown [id number] 2.16.840.1.956276.3.579.2. 1950 Unknown [id number] 2.16.840.1.284132.3.579.2 1950 Unknown [id number] 2.16.840.1.996763.3.579.2. 1950 Unknown [id number] 2.16.840.1.873136.3.579.2. 1950 Unknown [id number] 2.16.840.1.156176.3.579.2. 1950 Unknown [id number] 2.16.840.1.449810.3.579.2. 1950 Unknown [id number] 2.16.840.1.563814.3.579.2. 1950 Unknown [id number] 2.16.840.1.586588.3.579.2. 1950 Unknown [id number] 2.16.840.1.898548.3.579.2.983 1950 Unknown [id number] 2.16.840.1.362396.3.579.2.983 1950 Unknown [id number] 2.16.840.1.550194.3.579.2.983 1950 Unknown [id number] 2.16.840.1.955353.3.579.2.983 1950 Unknown [id number] 2.16.840.1.245293.3.579.2.983 1950 Unknown [id number] 2.16.840.1.358413.3.579.2.983 1950 Unknown [id number] 2.16.840.1.414171.3.579.2.983 1950 Unknown [id number] 2.16.840.1.831585.3.579.2.983 1950 Unknown [id number] 2.16.840.1.426332.3.579.2.983 1950 Unknown [id number] 2.16.840.1.037528.3.579.2.983 1950 Unknown [id number] 2.16.840.1.400683.3.579.2.983 1950 Unknown [id number] 2.16.840.1.700571.3.579.2.983 Social History Date Type Detail Facility Start: 01-26-2012 End: 01-25-2018 Tobacco smoking status NHIS Never smoker [facility] Work Phone: Start: 1950 Sex Assigned At Not on file [facility] Work Phone: Start: 01-26-2012 End: 08-01-2020 Tobacco use and exposure Never used [facility] Start: 05-11-2021 End: 06-21-2021 Exposure to SARS-CoV-2 (event) Not sure [facility] Start: 05-27-2021 End: 01-12-2023 Alcohol intake Current drinker of alcohol (finding) [facility] Start: 04-03-2020 History SDOH Alcohol Frequency 2 [facility] Start: 10-24-2016 History SDOH Alcohol Comment infrequently [facility] Start: 04-03-2020 End: 08-15-2022 History of Social function [facility] Start: 04-03-2020 End: 08-15-2022 Alcohol Use Disorder Identification Test - Consumption [AUDIT-C] [facility] How often to you hav e a drink containing alcohol? Monthly or less [facility] Average Number of Drinks Not on file [facility] Start: 09-24-2016 Gender identity Identifies as male gender (finding) [facility] Start: 09-30-2022 Alcohol Comment occasional [facility] Medical Equipment Procedure Code Equipment Code Equipment Origin al Text Equipment Identifier Dates [facility] 03/26/15 - [id number] Start: 10-27-2016 Shanthi 03/26/15 - [id number] Start: 11-10-2016 [id number] Start: 06-27-2014 Goals Date Patient Goal Desired Activity /State Personal health goal Clinical Notes 06-12-2008 to 02-16-2023 Nadeem Merchant PT - 02/13/2023 9:33 AM Taylor Neely PTA - 02/04/2023 4:55 PM Nadeem Tolliver PT - 02/04/2023 4:16 PM Carol Viveros MD - 01/12/2023 9:29 AM ESTPatient Instructions Note Date & Type Note Facility 02-16-2023 Note HNO ID: [id number] Author: Nadeem Merchant PT Service: ? Author [...] was facilitated with verbal and visual cuing. Self-Shelter Management: 1: Edcucation on contacting PCP about [...] Stop Time : 1652 MAGDALENE Briones PT [facility] 02-13-2023 Note HNO ID: [id number] Author: Nadeem Merchant PT Service: ? Author [...] was facilitated with verbal and visual cuing. Self-Shelter Management: 1: Education and discussion on calling [...] Session Stop Time : 1015 Taylor Salguero, [employer] Nadeem Merchant PT [facility] 02-13-2023 History of Present illness [...] was facilitated with verbal and visual cuing. Self-Shelter Management: 1: Education and discussion on calling [...] Session Stop Time : 1015 Taylor Salguero, [employer] Nadeem Merchant PT documented in this encounter [facility] 02-11-2023 Note HNO ID: [id number] Author: Nadeem Merchant PT Service: ? Author [...] : 1712 Taylor Salguero, MAGDALENE Merchant, PT [facility] 02-05-2023 Note HNO ID: [id number] Author: Micheal Perez MD Service: ? Author Type: Physician Type: Progress Notes Filed: 02/05/2023 2:20 PM Note Text: [facility] - FOLLOW UP EVALUATION Carol Gutierrez MD [address] [facility] [id number] Dear Carol Gutierrez MD: I had the pleasure of seeing Mr. Abraham for follow-up today. As you know he [...] Therapy Interval History: He was in [facility] for 9 hours in December because he [...] Flowsheet Row OT/PT/Speech Visit from 01/21/2023 in [facility] Physical Therapy Office Visit from 10/16/2022 in [...] by mouth da (more content not included)... [facility] 02-04-2023 Note HNO ID: [id number] Author: Nadeem Merchant PT Service: ? Author [...] Stop Time : 1700 MAGDALENE Briones, PT [facility] 02-04-2023 History of Present illness Narrative Program_ID:[id number] Access Code: [email or web address] URL: [email or web address] Date: 02-04-2023 Prepared By: Taylor Salguero Program [...] Session Stop Time : 1700 Taylor Salguero, [employer] Nadeem Merchant PT documented in this encounter [facility] 01-21-2023 Note HNO ID: [id number] Author: Nadeem Merchant PT Service: ? Author [...] second tandem to reflect decreased fall risk. [place] in home exercise program including cardiovascular exercise. Patient Goals: regain prior functional status Planned Interventions, Frequency, and Duration: Current Frequency: 2x/week Duration: 8 weeks Total Number of Visits Planned: 16 Planned Treatment Interventions: Therapeutic exercise (16062), Neuromuscular re-education (37001), Manual therapy (07841), Therapeutic activities (55737), Self-half-way management (15853), Gait Training (64783), Patient/Family/Caregiver Education, Body Mechanics Training, General Conditioning, [...] onset of knee pain after vacation to [place], he was ambulating independently with cane and/or rollator. He reports chronic difficulty with rising from chair. He reports that he even drove through [place] to [place]. 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 [facility] 01-12-2023 Note HNO ID: [id number] Author: Carol Gutierrez MD Service: ? Author Type: Physician Type: Progress Notes Filed: 01/12/2023 9:56 AM Note Text: Chief Complaint Patient presents with: ER F/U HPI Deepa Abraham is a 72 year old male who presents here today for ER Follow Up.. Patient evaluated at [facility] ED on 01/05 for c/o decreased [...] DM type 2 (diabetes mellitus, type 2) ([facility]) ~2007 Endocrinology-[facility] Essential hypertension, benign ~10 [...] No. Warmth: No. (more content not included)... [facility] 01-12-2023 History of Present illness Narrative Chief Complaint Patient presents with: ER F/U HPI Deepa Abraham is a 72 year old male who presents here today for ER Follow Up.. Patient evaluated at [facility] ED on 01/05 for c/o decreased [...] DM type 2 (diabetes mellitus, type 2) ([facility]) ~2007 Endocrinology-[facility] Essential hypertension, benign ~10 [...] Carol Gutierrez MD documented in this encounter [facility] 12-15-2022 Miscellaneous Notes calling to say [...] bedtime. Janna Luna documented in this encounter [facility] 12-05-2022 Note HNO ID: [id number] Author: Brooke Machuca Service: ? Author Type: ? Type: Progress Notes Filed: 12/05/2022 7:37 AM Note Text: POPULATION HEALTH NAVIGATION OUTREACH Action/FYI 12/05/22 Received message from PCP stating patients A1C handled by patients [employer] Manager. Order canceled. Patient Identified by Name and : NO Outreach Outcome/Action Unable to reach patient: Left message Did you use a PCP flex slot to schedule this appointment? N/A Navigation Signature: Brooke Rizzo Population Health Navigator December 05, 2022 7:13 AM [facility] 12-05-2022 History of Present illness Narrative POPULATION HEALTH NAVIGATION OUTREACH Action/12/05/22 Received message from PCP stating patients A1C handled by patients [employer] Manager. Order canceled. Patient Identified by Name and [...] ~Left message on voice mail and sent [employer] message. *Pended HgBA1C order pending, sent to [...] 2022 7:44 AM documented in this encounter [facility] 12-04-2022 Note HNO ID: [id number] Author: Jovita Cao Ma Service: ? Author Type: ? Type: Progress Notes Filed: 12/04/2022 12:31 PM Note Text: Established with Mirian on 09/01, Piedad Ruggiero CNP. Seen 1 month later was [facility]. A1c at visit on 09/01/22 - 8.2%, updated. Jovita Cao Ma [facility] 12-04-2022 Note Patient Outreach (NE TNAV) DEEPA ABRAHAM ([id number]) 1950 M Date Time Provider Department 12/04/22 BROOKE RIZZO (ELFEGO) YURIV During your visit today, we recorded the following information about you: Brooke Machuca 12/04/2022 9:46 AM Signed POPULATION HEALTH NAVIGATION OUTREACH Action/FYI 12/04/22 Discuss/due [employer] care gaps: ~HgBA1C ~Dilated Retinal exam ~Advance Directives ~Flu vaccine Outcome: ~Left message on voice mail and sent [employer] message. *Pended HgBA1C order pending, sent to [...] PCP stating patients A1C handled by patients [employer] Manager. Order canceled. Patient Identified by Name and [...] (HCC) [E11.9, Z79.4] Order(s):URINE ALBUMIN W/CREAT RATIO [[id number]] Order #: [id number] HGB A1C [[id number]] Order #: [id number] Prescriptions as of 12/05/2022 - carbidopa-levodopa (SINEMET [...] OBESITY NOS [E66. (more content not included)... [facility] 12-04-2022 Note HNO ID: [id number] Author: Carol Gutierrez MD Service: ? Author Type: Physician Type: Progress Notes Filed: 12/04/2022 9:46 AM Note Text: His diabetes is managed by endocrinology Piedad Ruggiero. They are ordering these tests for him. [facility] 12-04-2022 Note HNO ID: [id number] Author: Brooke Machuca Service: ? Author Type: ? Type: Progress Notes Filed: 12/04/2022 9:46 AM Note Text: POPULATION HEALTH NAVIGATION OUTREACH Action/FYI 12/04/22 Discuss/due [employer] care gaps: ~HgBA1C ~Dilated Retinal exam ~Advance Directives ~Flu vaccine Outcome: ~Left message on voice mail and sent [employer] message. *Pended HgBA1C order pending, sent to PCP to review and file* Patient Identified by Name and : NO Outreach Outcome/Action Unable to reach patient: Left message [employer] message sent Did you use a PCP [...] Health Navigator December 04, 2022 7:44 AM [facility] 11-19-2022 Nurse Note Arrived in phase II via cart. Left lateral position. Sedated, but responds to verbal stimuli. Color normal; skin warm and dry. Respirations wnl and unlabored. Abdomen soft and with + bowel sounds in quads X 4. Patient resting comfortably. Elham Brewster RN documented in this encounter [facility] 11-19-2022 History and physical note UPDATED [...] Diagnosis Date Aortic valve sclerosis Atrial fibrillation ([facility]) Dr. Persaud? CAD (coronary artery disease) CKD stage G3b/A1, GFR 30 - 44 and albumin creatinine ratio <30 mg/g Constipation Depression DM type 2 (diabetes mellitus, type 2) ([facility]) ~2007 Endocrinology-[facility] Essential hypertension, benign ~10 years Lymphedema of both lower extremities Mild cognitive impairment Obesity Onychomycosis CONCHITA (obstructive sleep apnea) refusing CPAP Other and unspecified hyperlipidemia Overactive bladder Dr. Swanson Parkinson's disease ([facility]) Dr. Sandoval PAST SURGICAL HISTORY PAST SURGICAL [...] entered by the nurse and reviewed by al Nursing Notes: Carmen Iqbal LPN 10/21/2022 10:32 [...] DM type 2 (diabetes mellitus, type 2) ([facility]) ~2007 [facility] Essential hypertension, benign ~10 years Lymphedema of both lower extremities Mild cognitive impairment Obesity Onychomycosis CONCHITA (obstructive sleep apnea) refusing CPAP Other and unspecified hyperlipidemia Overactive bladder Dr. Swanson Parkinson's disease ([facility]) Dr. Sandoval PAST SURGICAL HISTORY PAST SURGICAL [...] Nevaeh Kitchen MD documented in this encounter [facility] 10-23-2022 Miscellaneous Notes Ordered Pt called to request order for speech therapy recommended by Dr. Perez at 10/16/[address] Perez when order placed route message to [place] [id number] Admin Pool so pt may be contacted to schedule. documented in this encounter [facility] 10-21-2022 Note HNO ID: [id number] Author: Nevaeh Kitchen MD Service: ? Author [...] Diagnosis Date Aortic valve sclerosis Atrial fibrillation ([facility]) Dr. Persaud? CAD (coronary artery disease) CKD stage G3b/A1, GFR 30 - 44 and albumin creatinine ratio <30 mg/g Constipation Depression DM type 2 (diabetes mellitus, type 2) ([facility]) ~2007 [facility] Essential hypertension, benign ~10 years Lymphedema of both lower extremities Mild cognitive impairment Obesity Onychomycosis CONCHITA (obstructive sleep apnea) refusing CPAP Other and unspecified hyperlipidemia Overactive bladder Dr. Swanson Parkinson's disease ([facility]) Dr. Sandoval PAST SURGICAL HISTORY Procedure Laterality [...] entered by the nurse and reviewed by al Nursing Notes: Carmen IqbalMARGARETH 10/21/2022 10:32 AM [...] NOTES difficulty swallowing, (more content not included)... [facility] 10-21-2022 History of Present illness [...] 2 (diabetes mellitus, type 2) (HCC) ~2007 [facility] Essential hypertension, benign ~10 years Lymphedema [...] will be scheduled for the procedure at [facility]. Diagnoses: (K59.00) Constipation, unspecified constipation type (Z12.11) [...] Nevaeh Kitchen MD documented in this encounter [facility] 10-21-2022 Instructions Nevaeh Kitchen MD - [...] If you do not have a responsible chair car driver (family member or friend) with you [...] exam. 2 01/2019 [facility] [facility] 10-21-2022 Nurse Note REVIEW OF SYSTEMS: [...] N/A Last Colonoscopy: 2014 Carmen Iqbal LPN documented in this encounter [facility] 10-16-2022 Note HNO ID: [id number] Author: Micheal Perez MD Service: ? Author Type: Physician Type: Progress Notes Filed: 10/16/2022 2:18 PM Note Text: [facility] - NEW PATIENT EVALUATION Primary Care Provider: Carol Gutierrez MD [address] [facility] [id number] Dear Carol Gutierrez MD: I had the [...] daily. - v (more content not included)... [facility] 10-16-2022 Instructions Micheal Perez MD [...] or you can send a message through [employer]. You can also now schedule and select appointments through [employer]. Micheal Perez MD documented in this encounter [facility] 10-16-2022 History of Present illness Narrative [facility] - NEW PATIENT EVALUATION Primary Care Provider: Carol Gutierrez MD [address] [facility] [address] Dear Carol Gutierrez MD: I had the [...] history of Aortic valve sclerosis, Atrial fibrillation ([facility]), CAD (coronary artery disease), CKD stage G3b/A1, GFR 30 - 44 and albumin creatinine ratio <30 mg/g, Constipation, Depression, DM type 2 (diabetes mellitus, type 2) ([facility]) (~2007), Essential hypertension, benign (~10 years), Lymphedema of both lower extremities, Mild cognitive impairment, Obesity, Onychomycosis, CONCHITA (obstructive sleep apnea), Other and unspecified hyperlipidemia, Overactive bladder, and Parkinson's disease ([facility]). has a past surgical history that includes [...] Right Plantar: downgoing Left Plantar: downgoing Coordination Qyuveo-lk-aunn, rapid alternating movements and xzzk-ul-jkqe normal bilaterally without dysmetria. Gait Casual gait [...] the amplitude decrements starting after the 1st esww-jps-lkvln sequence. Hand Movements Left 3-Moderate. a) more than 5 interruptions during the movement or at least one longer arrest (freeze) in ongoing movement, b) moderate slowing, c) the amplitude decrements starting after the 1st wodq-jcj-ldeom sequence. Arm Movements Right 2-Mild. a) 3 [...] Micheal Perez MD documented in this encounter [facility] 09-30-2022 Note HNO ID: [id number] Author: Carol Gutierrez MD Service: ? Author Type: Physician Type: Progress Notes Filed: 10/02/2022 10:35 AM Note Text: Chief Complaint Patient presents with: Establish Care HPI Deepa Abraham is a 72 year old male who presents here today for establish care. Previous PCP: Dr. Moreno in [place] with last OV in April. Accompanied today by his . Complaining of constipation with large stools which has been present for about 1 year. Advised to take dulcolax on a daily basis which he has been compliant with. No recurrent dizziness since our last OV for ER follow up. History of type II DM which was previously managed by Dr. Veras in [place] and was referred to [facility] R[facility]iero here in [place]. States that his last OV was on September 01. . Switched him from NPH and R to Humalog 50-50 as ordered. Checking sugars 5-6 times per day with Blipyle rayna. Glucose this morning was 104 fasting. [...] DM type 2 (diabetes mellitus, type 2) ([facility]) ~2007 Endocrinology-[facility] Essential hypertension, benign ~10 years Lymphedema of both lower extremities Mild cognitive impairment Obesity Onychomycosis CONCHITA (obstructive sleep apnea) refusing CPAP Other and unspecified hyperlipidemia Overactive bladder Dr. Swanson Parkinson's disease ([facility]) Dr. Sandoval Previous Surgical History PAST SURGICAL HISTORY Procedure Laterality Date IMPLANT MESH OPN HERNIA RPR/DEBRIDEMENT CLOSURE 1997 left RPR NONUNION/MALUNION RADIUSANDULNA W/O AUTOGRAF 1978 left and right Family History FAMILY HISTORY Problem Relation Age of Onset other ([place] [Other]) Mother other ([place] [Other]) Father Colon [...] (NOVOLIN R REGULAR (more content not included)... [facility] 09-09-2022 History of Present illness [...] 60 g, Rfl: 1 Continuous Blood Gluc Leaded Glass Installer (FreeStyle Rayna 2 [place] Systm) Device, 1 Each by Unknown route [...] per dr. kelley He is living in [place] now- too far for him to drive Will find a quiller tender closer to home I did tellhim if he has a problem I am happy to see him Follow up prn documented in this encounter [facility] 08-29-2022 History of Present illness Narrative [...] it difficult to get into appointments at [place] where they now live ROS Review of [...] 60 g, Rfl: 1 Continuous Blood Gluc Leaded Glass Installer (FreeStyle Rayna 2 [place] Systm) Device, 1 Each by Unknown route [...] 01/2022 negative -Needs f/up in urology - [place] Parkinson's -Patient sees neurology Rhinorrhea with eating -May be vasomotor rhinitis vs. Allergy -Trial of flonase Refills given. RTC in 3 months, sooner if any new infectious disease concerns. 20 minutes of care documented in this encounter [facility] 08-15-2022 Note HNO ID: [id number] Author: Carol Gutierrez MD Service: ? Author Type: Physician Type: Progress Notes Filed: 08/16/2022 10:57 AM Note Text: Chief Complaint Patient presents with: ER F/U HPI Deepa Abraham is a 72 year old male who presents here today for jnew limited ER Follow Up. Accompanied today by his Filomena Merchant. PCP Dr. Moreno in [place]. Patient evaluated at [facility] ED on 08/09 for c/o dizziness [...] DM type 2 (diabetes mellitus, type 2) ([facility]) ~2007 Essential hypertension, benign ~10 years Obesity Other and unspecified hyperlipidemia Previous Surgical History PAST SURGICAL HISTORY Procedure Laterality Date IMPLANT MESH OPN HERNIA RPR/DEBRIDEMENT CLOSURE 1997 left RPR NONUNION/MALUNION RADIUSANDULNA W/O AUTOGRAF 1978 left and right Family History FAMILY HISTORY Problem Relation Age of Onset other ([place] [Other]) Mother other ([place] [Other]) Father Colon [...] Never done DT (more content not included)... [facility] 08-15-2022 History of Present illness Narrative Chief Complaint Patient presents with: ER F/U HPI Deepa Abraham is a 72 year old male who presents here today for jnew limited ER Follow Up. Accompanied today by his Filomena Merchant. PCP Dr. Moreno in [place]. Patient evaluated at [facility] ED on 08/09 for c/o dizziness [...] HISTORY Problem Relation Age of Onset other ([place] [Other]) Mother other ([place] [Other]) Father Colon [...] which included preparing to see the patient, chvf-gr-rzuq patient care, completing clinical documentation, obtaining and/or reviewing separately obtained history, performing a medically appropriate examination, counseling and educating the patient/family/caregiver, ordering medications, tests, or procedures, and independently interpreting results (not separately reported). Carol Gutierrez MD documented in this encounter [facility] 06-19-2022 History of Present illness Narrative Nurse Note: Review of Systems Constitutional: Positive for fatigue. Negative for unexpected weight change. Eyes: Negative for visual disturbance. Respiratory: Negative for shortness of breath. Gastrointestinal: Positive for constipation. Negative for diarrhea, nausea and vomiting. Endocrine: Positive for polyuria. Negative for polydipsia. Neurological: Negative for numbness. Psychiatric/Behavioral: Negative for sleep disturbance. Nursing Assessment: Physical Exam Order Clerk? No Community Service Organization Director? 5+ years History of Present Illness Insulin [...] chronic peripheral neuropathy. Has met with a tobacco educator in the past. He has a history [...] for sleep disturbance. Nursing Assessment: Physical Exam Order Clerk? No Community Service Organization Director? 5+ years Vitals: Blood pressure 132/70, pulse [...] meal. He is now moved to the [facility] and not hear anything about the referral we placed to transition care closer to home. New referral was placed today. He will call if he does not hear anything from the new endocrinology office. Follow-up at this office will be pending how quickly he can get into his new passport support associate. Hyperlipidemia: Meeting LDL targets, continue statin therapy. This is managed by PCP. Hypertension: This is managed by his PCP. Blood pressure at target today. documented in this encounter [facility] 06-19-2022 Procedure note Associated Ord er(s): AL CONTINUOUS GLUCOSE MONITORING ANALYSIS I&R CGM data [...] CGM reader with him at all times. [facility] 06-19-2022 Procedure note Associated Ord er(s): AL CONTINUOUS GLUCOSE MONITORING ANALYSIS I&R CGM data [...] at all times. documented in this encounter [facility] 05-23-2022 History of Present illness Narrative [facility] NOTE Chief Complaint Patient presents with Follow-up [facility], [place] Parkinson's disease History of Present Illness: Deepa [...] once or twice daily Continuous Blood Gluc Leaded Glass Installer (FreeStyle Rayna 2 [place] Systm) Device 1 Each by Unknown route [...] at bedtime. For high cholesterol Skin Protectants, [facility]. (Eucerin) Cream cream Apply to bilateral lower [...] is no arm swing. Assessment and Plan: eDepa Abraham is a pleasant 71 y.o. male who presents in follow up for Parkinson disease. His motor symptoms have been stable since his last visit. He is experiencing memory difficulty. We agreed to try donepezil 5 mg daily. He lives in [place] and is having trouble making the drive over to our office. I suggested he look in to seeing Navarro Skinner, a neurologist practicing in [place]. Deepa was seen today for follow-up. Diagnoses [...] Coleman MD 05/23/2022 documented in this encounter [facility] 05-23-2022 Instructions Bella Coleman MD - 05/23/2022 1:[address] Navarro Skinner Neurologist in [address], [address] [place] [address] PHONE NUMBER: documented in this encounter [facility] [employer] 05-20-2022 History of Present illness Narrative ((((Portions of this note utilized [employer] dictation software, please excuse any typographical or [...] for suicidal ideas. documented in this encounter [facility] 05-20-2022 Instructions Mee Moreno MD - [...] help prevent shingles. documented in this encounter [facility] 05-07-2022 History of Present illness Narrative [...] 60 g, Rfl: 1 Continuous Blood Gluc Leaded Glass Installer (FreeStyle Rayna 2 [place] Systm) Device, 1 Each by Unknown route [...] minutes of care documented in this encounter [facility] 02-04-2022 History of Present illness Narrative [...] 60 g, Rfl: 1 Continuous Blood Gluc Leaded Glass Installer ([employer] Rayna 2 [place] Systm) Device, 1 Each by Unknown route [...] minutes of care documented in this encounter [facility] 01-31-2022 History of Present illness Narrative [...] daily 60 g 1 Continuous Blood Gluc Leaded Glass Installer (FreeStyle Rayna 2 [place] Systm) Device 1 Each by Unknown route [...] again for now. They have moved to [place] and are considering changing urologists. We will [...] LEUKOCESTUR NEGATIVE 04/19/2020 documented in this encounter [facility] 01-21-2022 History of Present illness Narrative ((((Portions of this note utilized [employer] dictation software, please excuse any typographical or [...] for suicidal ideas. documented in this encounter [facility] 01-21-2022 Instructions Mee Moreno MD - [...] colonoscopy until 2023 documented in this encounter [facility] 12-23-2021 History of Present illness Narrative [...] for numbness. Psychiatric/Behavioral: Negative for sleep disturbance. Order Clerk? No Community Service Organization Director? 5+ years Nursing Assessment: Physical Exam History [...] chronic peripheral neuropathy. Has met with a tobacco educator in the past. He has a history [...] for numbness. Psychiatric/Behavioral: Negative for sleep disturbance. Order Clerk? No Community Service Organization Director? 5+ years Nursing Assessment: Physical Exam Vitals: [...] 15/15 rule. He has now moved to [place] and is asking for passport support associate closer to his new home, referral placed today. We will plan on seeing him back in 3 months with labs prior if not established with new passport support associate. Hyperlipidemia: Meeting LDL targets, continue statin therapy. This is managed by PCP. Hypertension: This is managed by his PCP. Blood pressure at target today. documented in this encounter [facility] 12-23-2021 Procedure note Associated Ord er(s): AL CONTINUOUS GLUCOSE MONITORING ANALYSIS I&R CGM data [...] and to take prior to the meal. [facility] 12-23-2021 Procedure note Associated Ord er(s): AL CONTINUOUS GLUCOSE MONITORING ANALYSIS I&R CGM data [...] to the meal. documented in this encounter [facility] 12-10-2021 Evaluation + Plan note Associated Problem(s): Hypercholesterolemia You will be due for evaluation. You will be due to have FASTING labs checked. Please get these tests done about 1 week prior to your scheduled follow-up visit. [facility] 12-10-2021 Miscellaneous Notes Associated Problem(s): Hypercholesterolemia [...] your insurance, you may obtain them at [employer]. Associated Problem(s): CONCHITA (obstructive sleep apnea) Chronic, currently untreated AGAINST ELECTRIC DRILL OPERATOR You have obstructive sleep apnea. It is [...] Cardiology. I recommend that you see a political anthropologist as I have done all I can with it. You need to be seeing a specialist for your heart conditions. Associated Problem(s): Osteopenia Noted on DEXA scan. I have provided a prescription for the calcium with vitamin D one pill TWICE a day. Associated Problem(s): Hypertriglyceridemia A refill of icosapent ethyl (Vascepa) was provided. documented in this encounter [facility] 12-10-2021 Evaluation + Plan note Associated [...] your insurance, you may obtain them at [employer]. [facility] 12-10-2021 Evaluation + Plan note Associated Problem(s): CONCHITA (obstructive sleep apnea) Chronic, currently untreated AGAINST ELECTRIC DRILL OPERATOR You have obstructive sleep apnea. It is CRITICAL that you use a positive pressure device to aid with sleep until such time as this is otherwise cured because there is a DEFINITIVE 10-year loss of life with untreated sleep apnea. [facility] 12-10-2021 Evaluation + Plan note Associated Problem(s): CAD (Coronary Artery Disease) on CT scan You are already established with Dr. Persaud of Cardiology. I recommend that you see a political anthropologist as I have done all I can with it. You need to be seeing a specialist for your heart conditions. [facility] 12-10-2021 Evaluation + Plan note Associated Problem(s): Osteopenia Noted on DEXA scan. I have provided a prescription for the calcium with vitamin D one pill TWICE a day. [facility] 12-10-2021 Evaluation + Plan note Associated Problem(s): Hypertriglyceridemia A refill of icosapent ethyl (Vascepa) was provided. [facility] 12-10-2021 History of Present illness Narrative ((((Portions of this note utilized [employer] dictation software, please excuse any typographical or [...] Cardiology. I recommend that you see a political anthropologist as I have done all I can [...] (obstructive sleep apnea) Chronic, currently untreated AGAINST ELECTRIC DRILL OPERATOR You have obstructive sleep apnea. It is [...] your insurance, you may obtain them at [employer]. Relevant Medications Misc. Devices Misc Urge incontinence [...] for suicidal ideas. documented in this encounter [facility] 12-10-2021 Instructions Mee Moreno MD - 12/10/2021 2:30 PM EDT Problem List Items Addressed This Visit Aortic valve sclerosis - Primary (Chronic) Atrial enlargement, left (Chronic) Atrial Fibrillation, NOS (Chronic) CAD (Coronary Artery Disease) on CT scan (Chronic) You are already established with Dr. Persaud of Cardiology. I recommend that you see a political anthropologist as I have done all I can [...] (obstructive sleep apnea) Chronic, currently untreated AGAINST ELECTRIC DRILL OPERATOR You have obstructive sleep apnea. It is [...] your insurance, you may obtain them at [employer]. Relevant Medications Misc. Devices Misc Urge incontinence [...] urgency Urinary frequency documented in this encounter [facility] 12-03-2021 History of Present illness Narrative [...] 60 g, Rfl: 1 Continuous Blood Gluc Leaded Glass Installer (FREESTYLE RAYNA 14 DAY READER) Device, 1 [...] Please note Portions of this note utilized [employer] dictation software, please excuse any typographical or grammatical errors. documented in this encounter [facility] 11-26-2021 History of Present illness Narrative [facility] NOTE Chief Complaint Patient presents with Follow-up [facility] Parkinson's disease History of Present Illness: [...] once or twice daily Continuous Blood Gluc Leaded Glass Installer (FREESTYLE RAYNA 14 DAY READER) Device 1 [...] Coleman MD 11/26/2021 documented in this encounter [facility] 11-26-2021 Instructions Bella Coleman MD - 11/26/2021 10:30 AM EDT Please increase your carbidopa/levodopa to wmk-ipa-u-half tablets 3 times daily. documented in this encounter [facility] 09-24-2021 History of Present illness Narrative [...] 60 g, Rfl: 1 Continuous Blood Gluc Leaded Glass Installer (FREESTYLE RAYNA 14 DAY READER) Device, 1 [...] states he may be moving out of [facility], recommended that he establish care there or continue to return for periodic assessments. Refills given 22 minutes of care Please note Portions of this note utilized [employer] dictation software, please excuse any typographical or grammatical errors. documented in this encounter [facility] 08-26-2021 History of Present illness Narrative [...] daily 60 g 1 Continuous Blood Gluc Leaded Glass Installer (FREESTYLE RAYNA 14 DAY READER) Device 1 [...] I will check with Dr. Moseley and/or office support clerk for update. HgbA1c 7.8 PSA 0.287 (12/2020) - POCT URINALYSIS DIPSTICK AUTOMATED W/O SCOP Patient was advised to call with any questions or concerns. If symptoms worsen patient was advised to follow up in our office or the Emergency Dept. Benefits, Risks, Contraindications, and Complications of recommended treatments were explained the patient understands and agrees to proceed with plan. documented in this encounter [facility] 08-14-2021 History of Present illness Narrative [...] 60 g, Rfl: 1 Continuous Blood Gluc Leaded Glass Installer (FREESTYLE RANYA 14 DAY READER) Device, 1 Device by [...] prepped with alcohol. documented in this encounter [facility] 06-19-2021 History of Present illness Narrative [...] for sleep disturbance. Patient has seen a clinical informatics educator many years ago in [place] Nursing Assessment: Physical Exam History of Present [...] chronic peripheral neuropathy. Has met with a tobacco educator in the past. He has a history [...] for sleep disturbance. Patient has seen a clinical informatics educator many years ago in [place] Nursing Assessment: Physical Exam Vitals: Blood pressure [...] to his PCP. documented in this encounter [facility] 06-19-2021 Procedure note Associated Ord er(s): AL CONTINUOUS GLUCOSE MONITORING ANALYSIS I&R CGM data [...] to increase scan time on rayna device. [facility] 06-19-2021 Procedure note Associated Ord er(s): AL CONTINUOUS GLUCOSE MONITORING ANALYSIS I&R CGM data [...] on rayna device. documented in this encounter [facility] 06-11-2021 History of Present illness Narrative [...] 60 g, Rfl: 1 Continuous Blood Gluc Leaded Glass Installer (FREESTYLE RAYNA 14 DAY READER) Device, 1 [...] severely limiting injury. documented in this encounter [facility] 05-29-2021 History of Present illness Narrative [...] 60 tablet, Rfl: 0 Continuous Blood Gluc Leaded Glass Installer (FREESTYLE RAYNA 14 DAY READER) Device, 1 [...] severely limiting injury. documented in this encounter [facility] 05-27-2021 Instructions Natalie Moreno MD - [...] your brain better. documented in this encounter [facility] 05-27-2021 History of Present illness Narrative [...] times daily with meals. Continuous Blood Gluc Leaded Glass Installer (FREESTYLE RAYNA 14 DAY READER) Device 1 [...] GROWTH 20 DAYS Final Testing performed at [place], [place] [address] REPORT STATUS 05/07/2021 PENDING Incomplete FLUID TYPE [...] Use Authorization (EUA) for the qualitative detection [id number] nucleic acid. Final Office Visit on 02/28/2021 [...] Moreno MD 05/27/2021 documented in this encounter [facility] 01-02-2021 History of Present illness Narrative This note is in progress. Deepa Abraham is a 70 y.o. male who presents for Chief Complaint Skin Lesion Dictation on: 01/02/2021 11:37 AM by: SILVERIO NGUYEN [[id number]] History reviewed. No pertinent past medical history. [...] Nguyen DO 01/02/2021 documented in this encounter [facility] 10-14-2020 Hospital Discharge instructions Sukumar [...] You may find a provider through the [facility] Physician Referral Service by calling [phone] or by visiting [email or web address] Thank You for choosing the [facility] Emergency Department! The following attachments cannot be sent through Care Everywhere.Nausea and Vomiting (Surinamese)Constipation (Surinamese)documented in this encounter [facility] 10-14-2020 Emergency department Note Patient reports that his nausea is better but still has a headache, patient ok with having tylenol for pain, Dr. Roberts notified. See new order Emergency Department Report [facility] Service Date:.10/14/20 PCP: Mee Moreno [...] times daily with meals. CONTINUOUS BLOOD GLUC SHAREPOINT SPECIALIST (FREESTYLE RAYNA 14 DAY READER) DEVICE 1 [...] Social Gatherings with Friends and Family: Attends [employer] Services: Active Member of Clubs or Organizations: [...] DO 10/14/20 1242 documented in this encounter [facility] 09-26-2020 History of Present illness Narrative [...] Nguyen DO 09/26/2020 documented in this encounter [facility] 08-01-2020 History of Present illness [...] Nguyen DO 08/01/2020 documented in this encounter [facility] documented as of this encounter (statuses as of 08/16/2022) [facility] History of Past illness Narrative* Problem Noted Date Diagnosed Date Resolved Date Routine general medical exam ination at a health care facility 06/12/2008 07/27/2013 Overview: 08/03/08 -- transfer from Dr. Chacko 01/08/2010, yearly check 04/08/2011, yearly check-up documented as of this encounter (statuses as of 10/17/2022) [facility] History of Past illness Narrative* Problem Noted Date Diagnosed Date Resolved Date Routine general medical exam ination at a health care facility 06/12/2008 07/27/2013 Overview: 08/03/08 -- transfer from Dr. Chacko 01/08/2010, yearly check 04/08/2011, yearly check-up documented as of this encounter (statuses as of 10/24/2022) [facility] [facility] History of Past illness Narrative* Problem Noted Date Diagnosed Date Resolved Date Routine general medical exam ination at a health care facility 06/12/2008 07/27/2013 Overview: 08/03/08 -- transfer from Dr. Chacko 01/08/2010, yearly check 04/08/2011, yearly check-up documented as of this encounter (statuses as of 10/25/2022) [address]13-2009 History of Past illness Narrative* Problem Noted Date Diagnosed Date Resolved Date Routine general medical exam ination at a health care facility 06/12/2008 07/27/2013 Overview: 08/03/08 -- transfer from Dr. Chacko 01/08/2010, yearly check 04/08/2011, yearly check-up documented as of this encounter (statuses as of 12/05/2022) [address]13-2009 History of Past illness Narrative* Problem Noted Date Diagnosed Date Resolved Date Routine general medical exam ination at a health care facility 06/12/2008 07/27/2013 Overview: 08/03/08 -- transfer from Dr. Chacko 01/08/2010, yearly check 04/08/2011, yearly check-up documented as of this encounter (statuses as of 12/16/2022) [address]13-2009 History of Past illness Narrative* Problem Noted Date Diagnosed Date Resolved Date Routine general medical exam ination at a health care facility 06/12/2008 07/27/2013 Overview: 08/03/08 -- transfer from Dr. Chacko 01/08/2010, yearly check 04/08/2011, yearly check-up documented as of this encounter (statuses as of 01/04/2023) [address]13-2009 History of Past illness Narrative* Problem Noted Date Diagnosed Date Resolved Date Routine general medical exam ination at a health care facility 06/12/2008 07/27/2013 Overview: 08/03/08 -- transfer from Dr. Chacko 01/08/2010, yearly check 04/08/2011, yearly check-up documented as of this encounter (statuses as of 01/12/2023) [address]13-2009 History of Past illness Narrative* Problem Noted Date Diagnosed Date Resolved Date Routine general medical exam ination at a health care facility 06/12/2008 07/27/2013 Overview: 08/03/08 -- transfer from Dr. Chacko 01/08/2010, yearly check 04/08/2011, yearly check-up documented as of this encounter (statuses as of 02/05/2023) [facility] History of Past illness Narrative* Problem Noted Date Diagnosed Date Resolved Date Routine general medical exam ination at a health care facility 06/12/2008 07/27/2013 Overview: 08/03/08 -- transfer from Dr. Chacko 01/08/2010, yearly check 04/08/2011, yearly check-up documented as of this encounter (statuses as of 02/13/2023) [facility] Diagnosis Venous stasis dermatitis of both lower extremities- Primary [facility] Venous stasis dermatitis of both lower extremities- Primary Actinic keratosis [facility] Diagnosis Venous stasis dermatitis of both lower extremities- Primary Seborrheic keratosis [facility] Diagnosis Mild cognitive impairment- Primary Mild cognitive impairment, so stated [facility] Diagnosis Pain of left hand- Primary Pain in limb Closed nondisplaced transverse fracture of shaft of right fibula with routine healing, subsequent encounter Right ankle swelling Effusion of ankle and foot joint Bilateral leg pain Pain in limb [facility] Diagnosis Nausea- Primary Nausea alone Constipation, unspecified constipation type [facility] Diagnosis Osteopenia of neck of left femur [facility] Diagnosis Type 1 diabetes mellitus with other specified complication- Primary Hypertension, essential Essential hypertension, benign Hypercholesterolemia Pure hypercholesterolemia [facility] Diagnosis Primary osteoarthritis of left knee- Primary Primary localized osteoarthrosis, lower leg [facility] Diagnosis OAB (overactive bladder)- Primary Hypertonicity of bladder Urinary urgency Urgency of urination Urinary frequency Urge incontinence [facility] Bilateral leg pain- Primary Pain in limb Pain of left hand Pain in limb [facility] Diagnosis Onychomycosis- Primary Dermatophytosis of nail History of total knee arthroplasty, right Chronic venous insufficiency Unspecified venous (peripheral) insufficiency Diabetic polyneuropathy associated with type 2 diabetes mellitus Healthcare maintenance Routine [facility] Lymphedema of both lower extremities [facility] Diagnosis Parkinson's disease- Primary Paralysis agitans Parkinsonism, unspecified Parkinsonism type [facility]* Diagnosis Onychomycosis- Primary Dermatophytosis of nail History of total knee arthroplasty, right Chronic venous insufficiency Unspecified venous (peripheral) insufficiency Healthcare maintenance Routine general medical examination [facility] Lymphedema of both lower extremities [facility]* Diagnosis Aortic valve sclerosis- [...] Hypercholesterolemia Pure hypercholesterolemia [facility]* Diagnosis Type 2 diabetes mellitus with polyneuropathy- Primary Type II or unspecified type diabetes mellitus with neurological manifestations, not stated as uncontrolled [facility]* Diagnosis Hypercholesterolemia- Primary Pure hypercholesterolemia Hypertriglyceridemia Pure hyperglyceridemia RLS (restless legs syndrome) Restless legs syndrome (RLS) Preventative health care Routine general medical examination at a [facility] Screening for colon cancer Special screening for malignant neoplasms, colon Depression, recurrent-moderate Major depressive disorder, recurrent episode, moderate [facility]* Diagnosis OAB (overactive bladder)- Primary Hypertonicity of bladder Urinary urgency Urgency of urination Urinary frequency Urge incontinence [facility]* Diagnosis Onychomycosis- Primary Dermatophytosis of nail History of total knee arthroplasty, right Chronic venous insufficiency Unspecified venous (peripheral) insufficiency Healthcare maintenance Routine general medical examination at a health care facility Lymphedema of both lower extremities Diabetic Polyneuropathy documented [facility]* Diagnosis Onychomycosis- Primary Dermatophytosis of nail History of total knee arthroplasty, right Chronic venous insufficiency Unspecified venous (peripheral) insufficiency Lymphedema of both lower extremities Healthcare maintenance Routine general medical examination at a health care facility Xerosis of skin Other specified disease of sebaceous glands [facility]* Diagnosis Constipation, chronic-idiopathic- Primary [...] infants, unspecified (weight) [facility] Diagnosis Mild cognitive impairment- Primary Mild cognitive impairment, so stated Parkinsonism, unspecified Parkinsonism type Neuropathic pain Neuralgia, neuritis, and radiculitis, unspecified Other chronic pain Parkinson's disease Paralysis agitans [facility] Diagnosis Type 2 diabetes mellitus with diabetic polyneuropathy, with long-term current use of insulin- Primary Hypercholesterolemia Pure hypercholesterolemia Hypertension, essential Essential hypertension, benign [facility]* Diagnosis Dizziness- Primary Dizziness and giddiness Hypoglycemia Hypoglycemia, unspecified [facility] Diagnosis Onychomycosis- Primary Dermatophytosis of [...] use of insulin [facility]* Diagnosis Dermatophytosis of nail- Primary [facility] Diagnosis Parkinson's disease (HCC)- Primary Paralysis agitans Restless legs syndrome (RLS) RBD (REM behavioral disorder) REM sleep behavior disorder Constipation, unspecified constipation type Dementia without behavioral disturbance (HCC) Dementia, unspecified, without behavioral disturbance [facility] Diagnosis Parkinson's disease (HCC)- Primary Paralysis agitans [facility] Diagnosis Constipation, unspecified constipation type Screening for colon cancer Special screening for malignant neoplasms, colon documented in this encounter [facility]* Diagnosis Type 2 diabetes mellitus without complication, with long-term current use of insulin (HCC)- Primary documented in this encounter [facility] note* Diagnosis Screening for colon cancer- Primary Special screening for malignant neoplasms, colon documented in this encounter [facility] note* Diagnosis Acute pain of both knees- Primary Primary osteoarthritis of both knees Primary localized osteoarthrosis, lower leg documented in this encounter [facility] note* Diagnosis Acute pain of both knees- Primary Difficulty walking Difficulty in walking Primary osteoarthritis of both knees Primary localized osteoarthrosis, lower leg documented in this encounter [facility] note* Diagnosis Acute pain of both knees- Primary Difficulty walking Difficulty in walking Primary osteoarthritis of both knees Primary localized osteoarthrosis, lower leg documented in this encounter [facility] for referral (narrative)* Consultation (Routine) - New Request Specialty Diagnoses / Procedures Referred By Jose Daniel fisher Referred To Contact Cardiovascular Medicine Diagnoses Bilateral leg pain Adele Matthews MD [address] [place] [address] Referral ID Status Reason Start Date Expiration Date V isits Requested Visits Authorized [id number] New Request 05/29/2021 06/23/2022 1 1 Scheduling Instructions . * Adjunctive Therapy (Routine) - New Request Specialty Diagnoses / Procedures Referred By Jose Daniel fisher Referred To Contact Occupational Therapy Diagnoses Pain of left hand Adele Matthews MD [address] [place] [address] [facility] [address] [address] Referral ID Status Reason Start Date Expiration Date V isits Requested Visits Authorized [id number] New Request 05/29/2021 06/23/2022 1 1 * Adjunctive Therapy (Routine) - Auth Not Needed Specialty Diagnoses / Procedures Referred By Contac t Referred To Contact Physical Therapy Diagnoses Right ankle swelling Adele Matthews MD [address] [place] [address] [facility] [address] [address] Referral ID Status Reason Start Date Expiration Date V isits Requested Visits Authorized [id number] Auth Not Needed 05/29/2021 06/23/2022 100 100 [facility] for referral (narrative)* Consultation (Routine) - New Request Specialty Diagnoses / Procedures Referred By Contac t Referred To Contact Cardiovascular Medicine Diagnoses Bilateral leg pain Adele Matthews MD [address] [place] [address] Referral ID Status Reason Start Date Expiration Date V isits Requested Visits Authorized [id number] New Request 08/14/2021 09/08/2022 1 1 Scheduling Instructions . [facility] for referral (narrative)* Consultation (Routine) - New Request Specialty Diagnoses / Procedures Referred By Contac t Referred To Contact Endocrinology, Diabetes & Metabolism Diagnoses Type 2 diabetes mellitus with polyneuropathy Debbie Veras CNP [address] [place] [address] Referral ID Status Reason Start Date Expiration Date V isits Requested Visits Authorized [id number] New Request 12/23/2021 01/17/2023 1 1 [facility] [employer] [facility] for referral (narrative)* Consultation (Routine) - New Request Specialty Diagnoses / Procedures Referred By Contac t Referred To Contact Neurology Diagnoses Mild cognitive impairment Parkinson's disease Bella Coleman MD [address] [place] [address] Referral ID Status Reason Start Date Expiration Date V isits Requested Visits Authorized [id number] New Request 05/23/2022 06/17/2023 1 1 [facility] for referral (narrative)* Consultation (Routine) - Schedule Outgoing - Transfer of Care Specialty Diagnoses / Procedures Referred By Contac t Referred To Contact Diagnoses Type 2 diabetes mellitus with diabetic polyneuropathy, with long-term current use of insulin Debbie Veras CNP [address] [place] [address] System, Provider Not In Referral ID Status Reason Start Date Expiration Date V isits Requested Visits Authorized [id number] Schedule Outgoing - Transfer of Care 06/19/2022 07/14/2023 1 1 [facility] for referral (narrative)* Consultation (Routine) - New Request Specialty Diagnoses / Procedures Referred By Contac t Referred To Contact Podiatry Diagnoses Onychomycosis Diabetic polyneuropathy associated with type 2 diabetes mellitus Toño Kelley MD [address] [place] [address] Litzy De Dios DPM [address] [place] [address] Referral ID Status Reason Start Date Expiration Date V isits Requested Visits Authorized [id number] New Request 08/29/2022 09/23/2023 1 1 [facility] for referral (narrative)* Outpatient Procedure (Routine) - Authorized Specialty Diagnoses / Procedures Referred By Contac t Referred To Contact [facility] Diagnoses Screening for colon cancer Procedures COLONOSCOPY SCREENING COLONOSCOPY SCREENING COLONOSCOPY FLX DX W/COLLJ SPEC WHEN Nevaeh Stevens MD [address] [place] [address] [address] Referral ID Status Reason Start Date Expiration Date Visits Requested Visits Authorized [id number] Authorized Auto-Generat ed Referral 10/21/2022 10/22/2023 1 1 [facility] for referral (narrative)* Outpatient Procedure (Routine) - Closed Specialty Diagnoses / Procedures Referred By Contrenée t Referred To Contact [facility] Diagnoses Screening for colon cancer Procedures COLONOSCOPY SCREENING COLONOSCOPY SCREENING COLONOSCOPY FLX DX W/COLLJ SPEC WHEN Nevaeh Stevens MD [address] [place] [address] [address] Referral ID Status Reason Start Date Expiration Date V isits Requested Visits Authorized [id number] Closed Auto-Generate d Referral 10/21/2022 10/22/2023 1 1 [facility] for visit Narrative* Outpatient Procedure (Routine) - Closed Specialty Diagnoses / Procedures Referred By Jose Daniel fisher Referred To Contact [facility] Diagnoses Screening for colon cancer Procedures COLONOSCOPY SCREENING COLONOSCOPY SCREENING COLONOSCOPY FLX DX W/COLLJ SPEC WHEN Nevaeh Stevens MD [address] [place] [address] [address] Referral ID Status Reason Start Date Expiration Date V isits Requested Visits Authorized [id number] Closed Auto-Generate d Referral 10/21/2022 10/22/2023 1 1 [facility] Summary Purpose Family History No Family History Records FoundNo Family History Records FoundNo Family History Records FoundNo Family History Records FoundNo Family History Records FoundNo Family History Records FoundNo Family History Records FoundNo Family History Records Found Advance Directives No Advanced Directives Records FoundDocuments on File Type Date 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 Advance Directives and Livin [...] Documents on File Type Date 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 Advance Directives/Living Will 10/27/2016 [...] type Procedures [place] [address] [place] [address] Status Reason Specialty Diagnoses / Procedures Referre d By Contact Referred To Contact Closed Diagnoses Wheezing Shortness of breath [place] [address] [place] [address] Status Reason Specialty Diagnoses / Procedures Referred By Contact Referred To Contact New Request Diagnoses Localized edema Elevated d-dimer Procedures VASC DUPLEX VENOUS EXTREMITY [place] [address] [place] [address] Status Reason Specialty Diagnoses / Procedures Referred By Contact Referred To Contact New Request Cardiovascular Medicine Diagnoses Orthopnea Pulmonary hypertension [place] [address] [place] [address] Scheduling Instructions . Status Reason Specialty Diagnoses / Procedures Re ferred By Contact Referred To Contact Closed Cardiology Diagnoses Venous insufficiency (chronic) (peripheral) Phlebitis or thrombophlebitis of lower extremity Procedures Ultrasound venous insufficiency exam Litzy Persaud MD [address] [facility] [place] [address] Specialty Diagnoses / Procedures Referred By Contac t Referred To Contact Bone Densitometry Diagnoses Osteopenia of neck of left femur Procedures BONE DENSITY AXIAL (HIP, PELVIS, SPINE) Mee Moreno MD [address] [place] [address] Anthony Buc [facility] [address] [place] [address] Referral ID Status Reason Start Date Expiration Date Visits Re quested Visits Authorized [id number] Closed 05/27/2021 06/21/2022 1 1 Specialty Diagnoses / Procedures Referred By Contac t Referred To Contact [facility] Diagnoses Parkinson's disease (HCC) Procedures CONSULT TO PHYSICAL THERAPY PHYSICAL THERAPY EVALUATION HIGH COMPLEX 45 MINS Micheal Perez MD [address] [place] [address] [facility] [address] [address] Referral ID Status Reason Start Date Expiration Date Visits Requested Visits Authorized [id number] Pending Review Auto-Generat ed Referral 10/16/2022 10/16/2023 1 1 Specialty Diagnoses / Procedures Referred By Contac t Referred To Contact [facility] Diagnoses Parkinson's disease (HCC) Procedures CONSULT TO SPEECH THERAPY OFFICE/OUTPATIENT NEW [facility] 60-74 MINUTES Micheal Perez MD [address] [place] [address] [facility] [address] [address] Referral ID Status Reason Start Date Expiration Date Visits Requested Visits Authorized [id number] Pending Review Auto-Generat ed Referral 10/23/2022 10/23/2023 1 1 Specialty Diagnoses / Procedures Referred By Jose Daniel fisher Referred To Contact [facility] Diagnoses Acute pain of both knees Primary osteoarthritis of both knees Procedures CONSULT TO PHYSICAL THERAPY PHYSICAL THERAPY EVALUATION HIGH COMPLEX 45 MINS Carol Gutierrez MD [address] [place] [address] [facility] [place] [address] [place] [address] Referral ID Status Reason Start Date Expiration Date Visits Requested Visits Authorized [id number] Authorized Auto-Generat ed Referral 03/02/2022 03/01/2023 99 [...] the options including a referral to a political anthropologist. You elected to go ahead and proceed [...] treat. We discussed having me see a political anthropologist. Pericardial effusion, mild- This is a mild buildup of fluid in the sac surrounds the heart. This could be nothing, merely a marker of some inflammatory process however I believe it would be appropriate for you to see a political anthropologist at this time given the multiple findings. Pulmonary hypertension- Moderate, unknown etiology. I'm still awaiting the pulmonary function tests. In the meantime, I believe he should see your new political anthropologist for that as well. You should hear [...] the original. ((((Portions of this note utilized [employer] dictation software, please excuse any typographical or [...] the options including a referral to a political anthropologist. You elected to go ahead and proceed [...] the original. ((((Portions of this note utilized [employer] dictation software, please excuse any typographical or grammatical errors.)))) Chief Complaint: Deepa Abraham is a 67 y.o. 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 We discussed having me see a political anthropologist. Pericardial effusion, mild- This is a mild buildup of fluid in the sac surrounds the heart. This could be nothing, merely a marker of some inflammatory process however I believe it would be appropriate for you to see a political anthropologist at this time given the multiple findings. Pulmonary hypertension- Moderate, unknown etiology. I'm still awaiting the pulmonary function tests. In the meantime, I believe he should see your new political anthropologist for that as well. You should hear [...] DATE CREATED AUTHOR AUTHOR'S ORGANIZ ATION 06/08/2018 [facility] DATE CREATED AUTHOR AUTHOR'S ORGANIZ ATION 06/10/2018 [facility] DATE CREATED AUTHOR AUTHOR'S ORGANIZ ATION 01/06/2021 [facility] DATE CREATED AUTHOR AUTHOR'S ORGANIZ ATION 04/24/2022 [facility] DATE CREATED AUTHOR AUTHOR'S ORGANIZ ATION 2022 [facility] DATE CREATED AUTHOR AUTHOR'S ORGANIZ ATION 09/10/2022 [facility] DATE CREATED AUTHOR AUTHOR'S ORGANIZ ATION 02/18/2023 [facility] Reason for Visit (unrecogniz ed section and content) Status Reason Specialty Diagnoses / Procedures Referre d By Contact Referred To Contact Closed Diagnoses Localized edema Shortness of breath Procedures ECHOCARDIOGRAM Mee Moreno MD [address] [place] [address] Status Reason Specialty Diagnoses / Procedures Referre d By Contact Referred To Contact Closed Diagnoses Wheezing Shortness of breath Procedures PFT COMPLETE Mee Moreno MD [address] [place] [address] Reason Comments Other Reason Comments Critical Lab Values Reason Comments Follow-up swelling of legs, or thopnea, wheezing Wax in Ear left ear, seen audio logist Knee Pain left, still using ca ne Status Reason Specialty Diagnoses / Procedures Referre d By Contact Referred To Contact Closed Diagnoses Localized edema Elevated d-dimer Procedures VASC DUPLEX VENOUS EXTREMITY LOWER BILATERAL Mee Moreno MD [address] [place] [address] Status Reason Specialty Diagnoses / Procedures Re ferred By Contact Referred To Contact Closed Cardiology Diagnoses Venous insufficiency (chronic) (peripheral) Phlebitis or thrombophlebitis of lower extremity Procedures Ultrasound venous insufficiency exam Litzy Persaud MD [address] [facility] [place] [address] Reason Comments Skin Lesion Reason Comments Follow-up [...] PELVIS, SPINE) Mee Moreno MD [address] [place] [address] [facility] [address] [place] [address] Referral ID Status Reason Start Date Expiration Date Visits Re quested Visits Authorized [id number] Closed 05/27/2021 06/21/2022 1 1 Reason Comments [...] HIGH MDM 60-74 MINUTES Carol Gutierrez MD [address] [place] [address] Referral ID Status Reason Start Date Expiration Date Visits Requested Visits Authorized [id number] Pending Review PCP Requested Referral 09/30/2022 09/30/2023 [...] HIGH COMPLEX 45 MINS Carol Gutierrez MD [address] [place] [address] Pt [facility] [address] [place] [address] Referral ID Status Reason Start Date Expiration Date Visits Requested Visits Authorized [id number] Authorized Auto-Generat ed Referral 03/02/2022 03/01/2023 99 99 Care Teams (unrecognized sec tion and content) Checker And Packer Relationship Specialty Start Date End Date Mee Moreno MD PCP - General Internal Medicine 10/25/16 Bella Coleman MD [address] [place] [address] Neurology 12/20/20 Litzy Persaud MD [address] [facility] [place] [address] Interventional Cardiology 12/26/20 Adele Matthews MD [address] [place] [address] [place] [address] Orthopaedic Surgery 12/26/20 Kennedy Avalos MD [address] [place] [address] Endocrinology, Diabetes & Metabolism 12/26/20 Terrance Moseley MD [address] [facility] 1st [place] [address] Urology 12/26/20 Litzy De Dios, DPM [address] [place] [address] Podiatry 12/26/20 HastingsSilverio breen, DO [address] [place] [address] Emt P Dermatology 12/26/20 Checker And Packer Relationship Specialty Start Date End Date Mee Moreno MD PCP - General Internal Medicine 10/25/16 Bella Coleman MD [address] [place] [address] Neurology 12/20/20 Litzy Persaud MD [address]15 [facility] [place] [address] Interventional Cardiology 12/26/20 Adele Matthews MD 140 [place] [address] Orthopaedic Surgery 12/26/20 Kennedy Avalos MD 270 [facility] [place] [address] Endocrinology, Diabetes & Metabolism 12/26/20 Terrance Moseley MD [address] [facility] 1st [place] [address] Urology 12/26/20 Litzy De Dios, DPM [address] [facility] [place] [address] Podiatry 12/26/20 Silverio Nguyen, DO [address] [place] [address] Emt P Dermatology 12/26/20 Checker And Packer Relationship Specialty Start Date End Date Mee Moreno MD PCP - General Internal Medicine 10/25/16 Bella Coleman MD [address] [place] [address] Neurology 12/20/20 Litzy Persaud MD 715 [place] [address] Interventional Cardiology 12/26/20 Adele Matthews MD 140 [facility] [place] [address] [place] [address] Orthopaedic Surgery 12/26/20 Kennedy Avalos MD [address] [place] [address] Endocrinology, Diabetes & Metabolism 12/26/20 Terrance Moseley MD [address] [facility] 1st [place] [address] Urology 12/26/20 Litzy De Dios, DPM [address] [facility] [place] [address] Podiatry 12/26/20 Silverio Nguyen, DO [address] [place] [address] Emt P Dermatology 12/26/20 Checker And Packer Relationship Specialty Start Date End Date Mee Moreno MD PCP - General Internal Medicine 10/25/16 Checker And Packer Relationship Specialty Start Date End Date Mee Moreno MD PCP - General Internal Medicine 10/25/16 Bella Coleman MD [address] [place] [address] Neurology 12/20/20 Litzy Persaud MD [address] [place] [address] Interventional Cardiology 12/26/20 Adele Matthews MD [address] [place] [address] Orthopaedic Surgery 12/26/20 Kennedy Avalos MD [address] [place] [address] Endocrinology, Diabetes & Metabolism 12/26/20 Terrance Moseley MD [address] [facility] 1st [place] [address] Urology 12/26/20 Litzy De Dios, DPRonda [address] [place] [address] Podiatry 12/26/20 Silverio Nguyen DO [address] [place] [address] Emt P Dermatology 12/26/20 Checker And Packer Relationship Specialty Start Date End Date Mee Moreno MD PCP - General Internal Medicine 10/25/16 Bella Coleman MD [address] [place] [address] Neurology 12/20/20 Litzy Persaud MD [address] [place] [address] Interventional Cardiology 12/26/20 Adele Matthews MD 140 [place] [address] Orthopaedic Surgery 12/26/20 Kennedy Avalos MD [address] [place] [address] Endocrinology, Diabetes & Metabolism 12/26/20 Terrance Moseley MD [address] [facility] 1st [place] [address] Urology 12/26/20 Litzy De Dios DPRonda [address] [place] [address] Podiatry 12/26/20 [place] [address] [place] [address] Emt P Dermatology 12/26/20 Checker And Packer Relationship Specialty Start Date End Date Mee Moreno MD PCP - General Internal Medicine 10/25/16 Bella Coleman MD [address] [place] [address] Neurology 12/20/20 Litzy Persaud MD 715 [facility] [place] [address] Interventional Cardiology 12/26/20 Adele Matthews MD 140 [place] [address] Orthopaedic Surgery 12/26/20 Kennedy Avalos MD [address] [place] [address] Endocrinology, Diabetes & Metabolism 12/26/20 Terrance Moseley MD [address] [place] [address] Urology 12/26/20 Litzy De Dios, DPM 269 [facility] [place] [address] Podiatry 12/26/20 HastingsSilverio breen, DO [address] [place] [address] Emt P Dermatology 12/26/20 Checker And Packer Relationship Specialty Start Date End Date Mee Moreno MD PCP - General Internal Medicine 10/25/16 Bella Coleman MD [address] [place] [address] Neurology 12/20/20 Litzy Persaud MD [address] [place] [address] Interventional Cardiology 12/26/20 Adele Matthews MD 140 [facility] [place] [address] Orthopaedic Surgery 12/26/20 Kennedy Avalos MD 270 [place] [address] Endocrinology, Diabetes & Metabolism 12/26/20 Terrance Moseley MD [address] [place] [address] Urology 12/26/20 Litzy De Dios DPM 269 [place] [address] Podiatry 12/26/20 Silverio Nguyen, DO [address] [place] [address] Emt P Dermatology 12/26/20 Checker And Packer Relationship Specialty Start Date End Date Mee Moreno MD PCP - General Internal Medicine 10/25/16 Bella Coleman MD [address] [place] [address] Neurology 12/20/20 Litzy Persaud MD [address] [place] [address] Interventional Cardiology 12/26/20 Adele Matthews MD 140 [facility] [place] [address] [place] [address] Orthopaedic Surgery 12/26/20 Kennedy Avalos MD [address] [place] [address] Endocrinology, Diabetes & Metabolism 12/26/20 Terrance Moseley MD 629 [facility] 1st [place] [address] Urology 12/26/20 Litzy De Dios, DPM [address] [place] [address] Podiatry 12/26/20 Silverio Nguyen, DO [address] [place] [address] Emt P Dermatology 12/26/20 Checker And Packer Relationship Specialty Start Date End Date Mee Moreno MD PCP - General Internal Medicine 10/25/16 Bella Coleman MD [address] [place] [address] Neurology 12/20/20 Litzy Persaud MD 715 [facility] [place] [address] Interventional Cardiology 12/26/20 Adele Matthews MD [address] [place] [address] [place] [address] Orthopaedic Surgery 12/26/20 Kennedy Avalos MD [address] [place] [address] Endocrinology, Diabetes & Metabolism 12/26/20 Terrance Moseley MD [address] [facility] 1st [place] [address] Urology 12/26/20 Litzy De Dios DPM [address] [place] [address] Podiatry 12/26/20 Hastings, Silverio, DO 1040 [place] [address] Emt P Dermatology 12/26/20 Checker And Packer Relationship Specialty Start Date End Date Mee Moreno MD PCP - General Internal Medicine 10/25/16 Bella Coleman MD [address] [place] [address] Neurology 12/20/20 Litzy Persaud MD [address] [facility] [place] [address] Interventional Cardiology 12/26/20 Adele Matthews MD 140 [place] [address] Orthopaedic Surgery 12/26/20 Kennedy Avalos MD [address] [place] [address] Endocrinology, Diabetes & Metabolism 12/26/20 Terrance Moseley MD [address] [place] [address] Urology 12/26/20 Litzy De Dios, DPM [address] [place] [address] Podiatry 12/26/20 Hastings, Silverio, DO [address] [place] [address] Emt P Dermatology 12/26/20 Checker And Packer Relationship Specialty Start Date End Date Mee Moreno MD PCP - General Internal Medicine 10/25/16 Bella Coleman MD [address] [place] [address] Neurology 12/20/20 Litzy Persaud MD [address] [place] [address] Interventional Cardiology 12/26/20 Adele Matthews MD 140 [facility] [place] [address] Orthopaedic Surgery 12/26/20 Kennedy Avalos MD 270 [place] [address] Endocrinology, Diabetes & Metabolism 12/26/20 Terrance Moseley MD [address] [place] [address] Urology 12/26/20 Litzy De Dios, DPRonda [address] [place] [address] Podiatry 12/26/20 HastingsSilverio, DO 1040 [facility] [place] [address] Emt P Dermatology 12/26/20 Checker And Packer Relationship Specialty Start Date End Date Mee Moreno MD PCP - General Internal Medicine 10/25/16 Bella Coleman MD [address] [place] [address] Neurology 12/20/20 Litzy Persaud MD [address] [place] [address] Interventional Cardiology 12/26/20 Adele Matthews MD 140 [facility] [place] [address] [place] [address] Orthopaedic Surgery 12/26/20 Kennedy Avalos MD [address] [place] [address] Endocrinology, Diabetes & Metabolism 12/26/20 Terrance Moseley MD [address] [facility] 1st [place] [address] Urology 12/26/20 Litzy De Dios, DPM [address] [place] [address] Podiatry 12/26/20 Wendy Silverio, DO [address] [place] [address] Emt P Dermatology 12/26/20 Checker And Packer Relationship Specialty Start Date End Date Mee Moreno MD PCP - General Internal Medicine 10/25/16 Bella Coleman MD [address] [place] [address] Neurology 12/20/20 Litzy Persaud MD 715 [facility] [place] [address] Interventional Cardiology 12/26/20 Adele Matthews MD 140 [facility] [place] [address] Orthopaedic Surgery 12/26/20 Kennedy Avalos MD 270 [facility] [place] [address] Endocrinology, Diabetes & Metabolism 12/26/20 Terrance Moseley MD [address] [facility] 1st [place] [address] Urology 12/26/20 Litzy De Dios DPM [address] [place] [address] Podiatry 12/26/20 Hastings, Silverio, DO [address] [place] [address] Emt P Dermatology 12/26/20 Checker And Packer Relationship Specialty Start Date End Date Mee Moreno MD PCP - General Internal Medicine 10/25/16 Bella Coleman MD [address] [place] [address] Neurology 12/20/20 Litzy Persaud MD 715 [facility] [place] [address] Interventional Cardiology 12/26/20 Adele Matthews MD 140 [facility] [place] [address] Orthopaedic Surgery 12/26/20 Kennedy Avalos MD [address] [place] [address] Endocrinology, Diabetes & Metabolism 12/26/20 Terrance Moseley MD [address] [place] [address] Urology 12/26/20 Litzy De Dios, DPM [address] [place] [address] Podiatry 12/26/20 Silverio Nguyen DO [address] [place] [address] Emt P Dermatology 12/26/20 Checker And Packer Relationship Specialty Start Date End Date Mee Moreno MD PCP - General Internal Medicine 10/25/16 Bella Coleman MD [address] [place] [address] Neurology 12/20/20 Litzy Persaud MD 715 [place] [address] Interventional Cardiology 12/26/20 Adele Matthews MD 140 [facility] [place] [address] Orthopaedic Surgery 12/26/20 Kennedy Avalos MD 270 [facility] [place] [address] Endocrinology, Diabetes & Metabolism 12/26/20 Terrance Moseley MD [address] [place] [address] Urology 12/26/20 Litzy De Dios, DPM [address] [place] [address] Podiatry 12/26/20 Silverio Nguyen DO [address] [place] [address] Emt P Dermatology 12/26/20 Natalei Julien, OD [address] [place] [phone] Optometry 03/14/22 Checker And Packer Relationship Specialty Start Date End Date Mee Moreno MD PCP - General Internal Medicine 10/25/16 Bella Coleman MD [address] [place] [address] Neurology 12/20/20 Litzy Persaud MD [address] [place] [address] Interventional Cardiology 12/26/20 Adele Matthews MD 140 [facility] [place] [address] Orthopaedic Surgery 12/26/20 Kennedy Avalos MD [address] [place] [address] Endocrinology, Diabetes & Metabolism 12/26/20 Terrance Moseley MD [address] [facility] 1st [place] [address] Urology 12/26/20 Litzy De Dios, DPM [address] [place] [address] Podiatry 12/26/20 Wendy Silverio, DO [address] [place] [address] Emt P Dermatology 12/26/20 Natalie Julien, OD [address] [place] [phone] Optometry 03/14/22 Checker And Packer Relationship Specialty Start Date End Date Mee Moreno MD PCP - General Internal Medicine 10/25/16 Bella Coleman MD [address] [place], [place] [address] Neurology 12/20/20 Litzy Persaud MD [address] [place] [address] Interventional Cardiology 12/26/20 Adele Matthews MD 140 [facility] [place] [address] [place] [address] Orthopaedic Surgery 12/26/20 Kennedy Avalos MD [address] [place] [address] Endocrinology, Diabetes & Metabolism 12/26/20 Terrance Moseley MD [address] [facility] 1st [place] [address] Urology 12/26/20 Litzy De Dios, DPM [address] [place] [address] Podiatry 12/26/20 Silverio Nguyen, DO [address] [place] [address] Emt P Dermatology 12/26/20 Natalie Julien, OD [address] [place] [phone] Optometry 03/14/22 Checker And Packer Relationship Specialty Start Date End Date Mee Moreno MD PCP - General Internal Medicine 10/25/16 Bella Coleman MD [address] [place] [address] Neurology 12/20/20 Litzy Persaud MD 715 [facility] [place] [address] Interventional Cardiology 12/26/20 Adele Matthews MD 140 [facility] [place] [address] Orthopaedic Surgery 12/26/20 Kennedy Avalos MD [address] [place] [address] Endocrinology, Diabetes & Metabolism 12/26/20 Terrance Moseley MD [address] [facility] 1st [place] [address] Urology 12/26/20 Litzy De Dios, DPM 269 [facility] [place] [address] Podiatry 12/26/20 Silverio Nguyen, DO [address] [place] [address] Emt P Dermatology 12/26/20 Natalie Julien, OD [address] [place] [address] Optometry 03/14/22 Checker And Packer Relationship Specialty Start Date End Date Bella Coleman MD 715 [facility] [address] Referring Neurology 07/18/22 Checker And Packer Relationship Specialty Start Date End Date Mee Moreno MD PCP - General Internal Medicine 10/25/16 Bella Coleman MD [address] [place] [address] Neurology 12/20/20 Litzy Persaud MD [address] [place] [address] Interventional Cardiology 12/26/20 Adele Matthews MD [address] [place] [address] [place] [address] Orthopaedic Surgery 12/26/20 Kennedy Avalos MD [address] [place] [address] Endocrinology, Diabetes & Metabolism 12/26/20 Terrance Moseley MD [address] [facility] 1st [place] [address] Urology 12/26/20 Litzy De Dios DPM [address] [place] [address] Podiatry 12/26/20 Silverio Nguyen DO [address] [place] [address] Emt P Dermatology 12/26/20 Natalie Julien OD [address] [place] [phone] Optometry 03/14/22 Checker And Packer Relationship Specialty Start Date End Date Mee Moreno MD PCP - General Internal Medicine 10/25/16 Bella Coleman MD [address] [place] [address] Neurology 12/20/20 Litzy Persaud MD [address] [place] [address] Interventional Cardiology 12/26/20 Adele Matthews MD [address] [place] [address] [place] [address] Orthopaedic Surgery 12/26/20 Kennedy Avalos MD [address] [place] [address] Endocrinology, Diabetes & Metabolism 12/26/20 Terrance Moseley MD [address] [facility] 1st [place] [address] Urology 12/26/20 Litzy De Dios DPM [address] [place] [address] Podiatry 12/26/20 Silverio Nguyen DO [address] [place] [address] Emt P Dermatology 12/26/20 Natalie Julien OD [address] [place] [phone] Optometry 03/14/22 Checker And Packer Relationship Specialty Start Date End Date Carol Gutierrez MD [address] [place] [address] PCP - General Family Medicine 09/30/22 Bella Coleman MD [address] [place] [address] Referring Neurology 07/18/22 Checker And Packer Relationship Specialty Start Date End Date Carol Gutierrez MD [address] [place] [address] PCP - General Family Medicine 09/30/22 Bella Coleman MD [address] [place] [address] Referring Neurology 07/18/22 Checker And Packer Relationship Specialty Start Date End Date Carol Gutierrez MD [address] [place] [address] PCP - General Family Medicine 09/30/22 Bella Coleman MD [address] [place] [address] Referring Neurology 07/18/22 Checker And Packer Relationship Specialty Start Date End Date Carol Gutierrez MD [address] [place] [address] PCP - General Family Medicine 09/30/22 Bella Coleman MD [address] [place] [address] Referring Neurology 07/18/22 Checker And Packer Relationship Specialty Start Date End Date Carol Gutierrez MD [address] [place] [address] PCP - General Family Medicine 09/30/22 Bella Coleman MD [address] [place] [address] Referring Neurology 07/18/22 Checker And Packer Relationship Specialty Start Date End Date Carol Gutierrez MD [address] [place] [address] PCP - General Family Medicine 09/30/22 Bella Coleman MD [address] [place] [address] Referring Neurology 07/18/22 Checker And Packer Relationship Specialty Start Date End Date Carol Gutierrez MD [address] [place] [address] PCP - General Family Medicine 09/30/22 Bella Coleman MD [address] [place] [address] Referring Neurology 07/18/22 Checker And Packer Relationship Specialty Start Date End Date Carol Gutierrez MD [address] [place] [address] PCP - General Family Medicine 09/30/22 Bella Coleman MD [address] [place] [address] Referring Neurology 07/18/22 Scheduled Active and Recently Administ ered Medications (unrecognized section and content) Source Comments (unrecognize d section and content) In the event this informatio n is protected by the Federal Confidentiality of Alcohol and Drug Abuse Patient Records regulations: The Federal rules restrict any use of the information to criminally investigate or prosecute any alcohol or drug abuse patient.[facility] Hospital[facility] the event this information is protected by the Federal Confidentiality of Alcohol and Drug Abuse Patient Records regulations: The Federal rules restrict any use of the information to criminally investigate or prosecute any alcohol or drug abuse patient.[facility] HospitalIn the event this information is protected by the Federal Confidentiality of Alcohol and Drug Abuse Patient Records regulations: The Federal rules restrict any use of the information to criminally investigate or prosecute any alcohol or drug abuse patient.[facility] HospitalIn the event this information is protected by the Federal Confidentiality of Alcohol and Drug Abuse Patient Records regulations: The Federal rules restrict any use of the information to criminally investigate or prosecute any alcohol or drug abuse patient.[facility] HospitalIn the event this information is protected by the Federal Confidentiality of Alcohol and Drug Abuse Patient Records regulations: The Federal rules restrict any use of the information to criminally investigate or prosecute any alcohol or drug abuse patient.[facility] Hospital[facility] the event this information is protected by the Federal Confidentiality of Alcohol and Drug Abuse Patient Records regulations: The Federal rules restrict any use of the information to criminally investigate or prosecute any alcohol or drug abuse patient.[facility] HospitalIn the event this information is protected by the Federal Confidentiality of Alcohol and Drug Abuse Patient Records regulations: The Federal rules restrict any use of the information to criminally investigate or prosecute any alcohol or drug abuse patient.[facility] HospitalIn the event this information is protected by the Federal Confidentiality of Alcohol and Drug Abuse Patient Records regulations: The Federal rules restrict any use of the information to criminally investigate or prosecute any alcohol or drug abuse patient.[facility] HospitalIn the event this information is protected by the Federal Confidentiality of Alcohol and Drug Abuse Patient Records regulations: The Federal rules restrict any use of the information to criminally investigate or prosecute any alcohol or drug abuse patient.[facility] HospitalIn the event this information is protected by the Federal Confidentiality of Alcohol and Drug Abuse Patient Records regulations: The Federal rules restrict any use of the information to criminally investigate or prosecute any alcohol or drug abuse patient.[facility] FOR RECORDS PERTAINING TO PATIENTS WHO [...] BE BASED ON THE PRIMARY CLINICAL RECORDS. [facility] [employer] [facility]. provides no warranty or guarantee of the accuracy or completeness of information in this document.
[2023-02-26 06:10] LABS: Hematocrit 43.8 % (40-54); Mean Corpuscular Hgb 27.5 pg (27.0-32.0); Mean Corpuscular Volume 86.1 fL (80-94); Platelet Count 205 K/mm3 (150-450); RBC Distribution Width CV 13.7 % (11.6-14.6); Red Blood Count 5.09 M/mm3 (4.6-6.2); White Blood Count 6.4 K/mm3 (4.4-11.0)
[2023-02-26 06:39] VITALS: BP 150/85; PULSE 82; RESP 18; TEMP 36.4; O2SAT 96
[2023-02-26 06:52] LABS: Anion Gap 3 (5-15); BUN 24 mg/dL (7-18); BUN/Creat Ratio 20.2 RATIO (10-20); Calcium,Total 8.7 mg/dL (8.5-10.1); Chloride 105 mmol/L (98-107); Creatinine, Serum 1.19 mg/dL (0.70-1.30); EST Glomerular Filtration Rate 64 mL/min (>60); Est Glom Filt Rate - Afr Amer 77 mL/min (>60); Estimated Creatinine Clearance 61.59 ml/min; Glucose 242 mg/dL (74-106); Potassium 3.9 mmol/L (3.5-5.1); Sodium Level 138 mmol/L (136-145)
[2023-02-26] MEDS: Enoxaparin 40 MG/0.4 ML Syringe SC (08:09)
[2023-02-26] MEDS: Venlafaxine HCl 75 MG Tablet PO ×2 (08:09→21:31)
[2023-02-26] MEDS: Mirabegron 25 MG TAB.ER.24H 50 MG PO (08:09)
[2023-02-26] MEDS: Donepezil HCl 5 MG Tablet PO (08:09)
[2023-02-26] MEDS: Carbidopa/Levodopa 25/100 Tablet PO ×3 (08:09→16:27)
[2023-02-26] MEDS: Insulin Lispro 100 UNIT/ML INSULN.PEN SC ×4 (08:10→21:32)
[2023-02-26] MEDS: Senna Tablet 2 TABLET PO (08:10)
[2023-02-26] MEDS: Polyethylene Glycol 3350 17 GM PACKET PO (08:10)
[2023-02-26] MEDS: Miconazole Nitrate 43 GM Bottle 1 APPLIC TOPICAL ×2 (08:14→20:03)
[2023-02-26] MEDS: Menthol/Lanolin/Calamine/Znox 113 GM Tube 1 APPLIC TOPICAL ×2 (08:15→20:03)
[2023-02-26] MEDS: Insulin Lispro 100 UNIT/ML INSULN.PEN 10 UNIT SC ×3 (08:22→16:27)
[2023-02-26 08:23] VITALS: BP 147/87; PULSE 77; RESP 18; TEMP 36.6; O2SAT 97
[2023-02-26 08:32] LABS: Bedside Glucose 246 mg/dL (74-106)
[2023-02-26 09:08] VITALS: O2SAT 96
--- NOTE | 2023-02-26 10:22 | CASEMGMT ---
Discharge Planning A list of?SNF providers including quality and resource use data and consistent with the patient's preferred geographic region, medical needs, and insurance network was created in [employer] Guide.? This list was provided to the SW. Roselia Newberry Discharge Planning Asst.
--- NOTE | 2023-02-26 10:50 | CASEMGMT ---
Social Work SW met with pt and and introduced self and role of SW. Pt lives at home with his in a 1 story apartment with no steps to enter. Pt reports he has been declining recently and having falls at home. is assisting with ADLs. SW discussed functional ability while working with therapy this morning. Pt is agreeable that short term SNF prior to return home is needed. A list of SNF providers including quality and resource use data and consistent with the patient?s preferred geographic region, medical needs, and insurance network were provided from the [employer] Guide. Pt and reviewed list and preferred providers are 1. TCU and 2. [facility]. Referral sent to TCU. SW will await determination. Plan: TCU, pending acceptance and precARGELIA Guevara
--- NOTE | 2023-02-26 11:06 | CASEMGMT ---
Social Work SW met with pt to discuss advance directives.? Pt confirms he has completed a living will and health care POA naming Filomena Silva.? Pt's notified that documents are not on file at [facility] and SW requested they be brought in for scanning into the EMR.? ARGELIA Hernandez
[2023-02-26 12:06] LABS: Bedside Glucose 395 mg/dL (74-106)
[2023-02-26 14:44] VITALS: BP 134/64; PULSE 85; RESP 18; TEMP 36.6; O2SAT 96
--- NOTE | 2023-02-26 14:50 | PN_ITS ---
Subjective Subjective Patient seen and examined. He complained of weakness and lethargy. He denied any fever or chills. Review of systems otherwise negative. Objective Data Objective Data Vital Signs: Vital Signs Temp Pulse Resp BP Pulse Ox O2 Del Method 97.9 F 85 18 134/64 H 96 Room Air 02/26/23 14:44 02/26/23 14:44 02/26/23 14:44 02/26/23 14:44 02/26/23 14:44 02/26/23 14:44 Oxygen Delivery Method Room Air Weight: 268 lb 11.896 oz Body Mass Index (BMI) 36.4 Intake & Output: Intake and Output for Last 24 Hours 02/24/23 02/25/23 02/26/23 23:59 23:59 23:59 Intake Total 300 / 300 450 / 450 Output Total 200 / 200 500 / 500 Balance 100 / 100 -50 / -50 Lab / Micro Data 02/26/23 05:45 02/26/23 05:45 Labs: Laboratory Results - last 24 hr 02/25/23 18:18: WBC 7.1, RBC 5.19, Hgb 14.0, Hct 43.1, MCV 83.0, MCH 27.0, MCHC 32.5, RDW Std Deviation 41.8, RDW Coeff of Yoana 13.9, Plt Count 234, MPV 9.1, Immature Gran % (Auto) 0.300, Neut % (Auto) 71.8 H, Lymph % (Auto) 16.8 L, [place] % (Auto) 8.3, Eos % (Auto) 2.5, Baso % (Auto) 0.3, Absolute Neuts (auto) 5.1, Absolute Lymphs (auto) 1.19, Nucleated RBC % 0, Sodium 137, Potassium 4.1, Chloride 103, Carbon Dioxide 27.0, Anion Gap 7, BUN 25 H, Creatinine 1.31 H, Estim Creat Clear Calc 55.95, Est GFR (MDRD) Af Amer 69, Est GFR (MDRD) Non-Af 57 L, BUN/Creatinine Ratio 19.1, Glucose 289 H, Calcium 9.3 02/25/23 23:03: POC Glucose 299 H 02/26/23 05:45: WBC 6.4, RBC 5.09, Hgb 14.0, Hct 43.8, MCV 86.1, MCH 27.5, MCHC 32.0, RDW Std Deviation 43.0, RDW Coeff of Yoana 13.7, Plt Count 205, MPV 9.0, Sodium 138, Potassium 3.9, Chloride 105, Carbon Dioxide 30.0, Anion Gap 3 L, BUN 24 H, Creatinine 1.19, Estim Creat Clear Calc 61.59, Est GFR (MDRD) Af Amer 77, Est GFR (MDRD) Non-Af 64, BUN/Creatinine Ratio 20.2 H, Glucose 242 H, Calcium 8.7 02/26/23 07:56: POC Glucose 246 H 02/26/23 11:43: POC Glucose 395 H Physical Exam Const alert, oriented x3 and no apparent distress General Appearance: cooperative Orientation / Consciousness: lethargic HEENT normocephalic, head/scalp atraumatic, moist oral mucous membranes and oropharynx normal Eyes PERRL and EOMs intact bilaterally Neck no lymphadenopathy and supple Lymph Lymphatic: no lymphadenopathy noted and no lymphedema noted Resp normal respiratory effort, normal air movement and clear to auscultation bilaterally Cardio regular rate, regular rhythm, S1 normal heart sound, S2 normal heart sound and no murmurs Peripheral Pulses: pulses 2+ throughout GI normal to inspection, nondistended, normoactive bowel sounds, soft to palpation and non-tender Extremity normal capillary refill, no clubbing, cyanosis or edema and no calf tenderness General Extremity: no tenderness to palpation of joints or extremities Skin General Skin Exam: no breakdown and turgor normal Neuro CN's II-XII intact bilaterally, no focal motor deficits, no sensory deficits noted and deep tendon reflexes 2+ bilaterally Motor Exam: strength 5/5 throughout and general weakness Psych thought process normal and cooperative Appearance: appropriate Assessment & Plan Assessment/Plan (1) Weakness: PLAN: Plan #Debility and weakness due to worsening Parkinson's disease * Has been getting weaker at home. * thought to be due to worsenign of his Parkinson's disease * on donepezil * PT/OT on board. Also on sinemet * Fall precautions. * #Type 2 diabetes mellitus: On Lantus 30 units nightly. Insulin sliding scale. Checks ACHS. Last A1c on 02/10/2023 was 8.4. #Constipation: On senna and MiraLAX as well as Dulcolax. #Depression and anxiety new behavioral disturbance: On Seroquel nightly for patient is unsafe for insomnia. On pramipexole and #Hyperlipidemia: On statin #Overactive bladder: On Myrbetriq DVT prophylaxis: on heparin Disposition: Patient and want him to be placed in TCU. Case management on board to help facilitate placement. Charges/Coding Visit Charges Inpatient E&M: 32798 Subs Hosp L2
[2023-02-26 16:57] LABS: Bedside Glucose 298 mg/dL (74-106)
--- NOTE | 2023-02-26 16:59 | CASEMGMT ---
Met with patient to complete PEREZ form. PEREZ form explained to patient who voiced understanding and signed form. Original form placed in pt?s chart and copy provided to patient.? Roselia Newberry, Discharge Planning Asst
[2023-02-26 20:00] VITALS: BP 156/83; PULSE 97; RESP 16; TEMP 37.2; O2SAT 95
[2023-02-26] MEDS: Acetaminophen 325 MG Tablet 650 MG PO (20:02)
[2023-02-26 20:53] VITALS: O2SAT 97
[2023-02-26] MEDS: Insulin Glargine-YFGN 100 UNIT/ML Pen 30 UNIT SC (21:31)
[2023-02-26] MEDS: Atorvastatin Calcium 40 MG Tablet PO (21:31)
[2023-02-26] MEDS: Pramipexole Di-HCl 0.5 MG Tablet 0.75 MG PO (21:31)
[2023-02-26] MEDS: QUEtiapine 25 MG Tablet PO (21:31)
[2023-02-26 21:55] LABS: Bedside Glucose 291 mg/dL (74-106)
[2023-02-27] VITALS (7 sets, daily range): BP systolic 127–165; BP diastolic 73–93; PULSE 66–90; RESP 16–18; TEMP 36.6–37.1; O2SAT 95–98
[2023-02-27] MEDS: Carbidopa/Levodopa 25/100 Tablet PO ×3 (06:06→17:08)
[2023-02-27] MEDS: Menthol/Lanolin/Calamine/Znox 113 GM Tube 1 APPLIC TOPICAL ×3 (06:14→21:03)
[2023-02-27] MEDS: Miconazole Nitrate 43 GM Bottle 1 APPLIC TOPICAL ×3 (06:15→21:03)
[2023-02-27 06:31] LABS: Absolute Lymphocyte Count 1.25 X10^3/uL (0.83-4.51); Absolute Neutrophil Count 4.6 X10^3/uL (2.0-7.7); Basophil# 0.03 X10^3/uL; Basophil% 0.5 % (0-1); Eosinophil# 0.17 X10^3/uL; Eosinophils% 2.6 % (0-5); Hematocrit 46.7 % (40-54); Hemoglobin 15.2 g/dL (13.0-16.5); Lymphocyte # 1.25 X10^3/ul (0.83-4.51); Lymphocyte % 18.9 % (19-41); Mean Corp Hgb Conc 32.5 g/dL (32-36); Mean Corpuscular Hgb 27.2 pg (27.0-32.0); Mean Corpuscular Volume 83.5 fL (80-94); Mean Platelet Vol. 8.6 fl (6.2-12.0); Monocyte# 0.54 X10^3/uL; Monocyte% 8.2 % (0-10); NRBC Flagged by Analyzer 0 % (0-5); Neutrophil # 4.59 X10^3/uL (2.7-7.7); Neutrophil % 69.2 % (47-70); Platelet Count 223 K/mm3 (150-450); RBC Distribution Width CV 13.7 % (11.6-14.6); RBC Distribution Width SD 41.4 fl (35.1-43.9); Red Blood Count 5.59 M/mm3 (4.6-6.2); White Blood Count 6.6 K/mm3 (4.4-11.0)
[2023-02-27 06:57] LABS: Anion Gap 5 (5-15); BUN 24 mg/dL (7-18); BUN/Creat Ratio 19.4 RATIO (10-20); Chloride 105 mmol/L (98-107); Creatinine, Serum 1.24 mg/dL (0.70-1.30); EST Glomerular Filtration Rate 61 mL/min (>60); Est Glom Filt Rate - Afr Amer 74 mL/min (>60); Glucose 244 mg/dL (74-106); Potassium 4.1 mmol/L (3.5-5.1); Sodium Level 137 mmol/L (136-145)
[2023-02-27] MEDS: Insulin Lispro 100 UNIT/ML INSULN.PEN 10 UNIT SC ×3 (08:20→17:07)
[2023-02-27] MEDS: Insulin Lispro 100 UNIT/ML INSULN.PEN SC ×4 (08:22→21:11)
[2023-02-27] MEDS: Donepezil HCl 5 MG Tablet PO (08:23)
--- NOTE | 2023-02-27 08:32 | CASEMGMT ---
Addendum entered by Natasha Weeks 02/27/23 16:52: Social Work SW did let pt know that he will likely be here through the weekend. Pt states understanding. Natasha RANDOLPH Addendum entered by Natasha Weeks 02/27/23 16:39: Social Work TCU did accept pt and started precert this morning. SW let pt and family know. At this time we do not have precert back. Green sheet on chart in event precert is attained on the weekend and pt can go to TCU on the weekend. It is anticipated pt will be here through the weekend however. AGUSTÍN Urias Original Note: Social Work SW reached out to TCU to see if they can take pt, referral is still pending. SW will continue to follow. AGUSTÍN Urias
--- NOTE | 2023-02-27 10:45 | PN_ITS ---
Subjective Subjective Patient seen and examined. He had no active complaints today. He had an uneventful night. Review of systems otherwise negative. He is awaiting placement. Objective Data Objective Data Vital Signs: Vital Signs Temp Pulse Resp BP Pulse Ox O2 Del Method 98.8 F 80 18 157/89 H 98 Room Air 02/27/23 09:21 02/27/23 09:21 02/27/23 09:25 02/27/23 09:21 02/27/23 09:21 02/27/23 09:25 Oxygen Delivery Method Room Air Weight: 268 lb 11.896 oz Body Mass Index (BMI) 36.4 Intake & Output: Intake and Output for Last 24 Hours 02/25/23 02/26/23 02/27/23 23:59 23:59 23:59 Intake Total 300 / 300 450 / 450 Output Total 200 / 200 1850 / 1850 800 / 800 Balance 100 / 100 -1400 / -1400 -800 / -800 Lab / Micro Data 02/27/23 06:15 02/27/23 06:15 Labs: Laboratory Results - last 24 hr 02/26/23 11:43: POC Glucose 395 H 02/26/23 16:25: POC Glucose 298 H 02/26/23 21:29: POC Glucose 291 H 02/27/23 06:15: WBC 6.6, RBC 5.59, Hgb 15.2, Hct 46.7, MCV 83.5, MCH 27.2, MCHC 32.5, RDW Std Deviation 41.4, RDW Coeff of Yoana 13.7, Plt Count 223, MPV 8.6, Immature Gran % (Auto) 0.600, Neut % (Auto) 69.2, Lymph % (Auto) 18.9 L, [place] % (Auto) 8.2, Eos % (Auto) 2.6, Baso % (Auto) 0.5, Absolute Neuts (auto) 4.6, Absolute Lymphs (auto) 1.25, Nucleated RBC % 0, Sodium 137, Potassium 4.1, Chloride 105, Carbon Dioxide 27.0, Anion Gap 5, BUN 24 H, Creatinine 1.24, Estim Creat Clear Calc 59.10, Est GFR (MDRD) Af Amer 74, Est GFR (MDRD) Non-Af 61, BUN/Creatinine Ratio 19.4, Glucose 244 H, Calcium 9.0 Physical Exam Const alert, oriented x3 and no apparent distress Constitutional Narrative: obese, flat affect General Appearance: cooperative and comfortable Orientation / Consciousness: lethargic HEENT normocephalic, head/scalp atraumatic, hearing grossly normal bilaterally, nasal mucous membranes and turbinates normal, moist oral mucous membranes and oropharynx normal Eyes PERRL, EOMs intact bilaterally and conjunctivae normal Neck no lymphadenopathy and supple Lymph Lymphatic: no lymphadenopathy noted and no lymphedema noted Chest inspection of chest normal Resp normal respiratory effort, normal air movement, no use of accessory muscles and clear to auscultation bilaterally Cardio regular rate, regular rhythm, S1 normal heart sound, S2 normal heart sound, no murmurs and peripheral pulses 2+ throughout Peripheral Pulses: pulses 2+ throughout GI normal to inspection, nondistended, normoactive bowel sounds, soft to palpation and non-tender Back/Spine normal ROM Extremity normal to inspection, normal capillary refill, no clubbing, cyanosis or edema, no calf tenderness and no pedal edema General Extremity: no tenderness to palpation of joints or extremities Skin no rashes or lesions noted General Skin Exam: no breakdown and turgor normal Neuro CN's II-XII intact bilaterally, no focal motor deficits, no sensory deficits noted and deep tendon reflexes 2+ bilaterally Neuro Narrative: S Motor Exam: strength 5/5 throughout and general weakness Psych mental status grossly normal, thought process normal and cooperative Appearance: appropriate Assessment & Plan Assessment/Plan (1) Weakness: PLAN: Plan #Debility and weakness due to worsening Parkinson's disease * Has been getting weaker at home. * thought to be due to worsenign of his Parkinson's disease * on donepezil * PT/OT on board. Also on sinemet * Fall precautions. * #Type 2 diabetes mellitus: On Lantus 30 units nightly. Insulin sliding scale. Checks ACHS. Last A1c on 02/10/2023 was 8.4. #Constipation: On senna and MiraLAX as well as Dulcolax. #Depression and anxiety new behavioral disturbance: On Seroquel nightly. on venlafaxine #Hyperlipidemia: On statin #Overactive bladder: On Myrbetriq DVT prophylaxis: on heparin Disposition: Patient and want him to be placed in TCU. Case management on board to help facilitate placement. Total time spent on evaluation and management of patient, reviewing chart and specialist notes, discussing plan with patient, discussion with nursing and ancillary staff as well as documentation: 35 mins Charges/Coding Visit Charges Inpatient E&M: 00104 Subs Hosp L2
[2023-02-27] MEDS: Venlafaxine HCl 75 MG Tablet PO ×2 (10:47→21:02)
[2023-02-27] MEDS: Enoxaparin 40 MG/0.4 ML Syringe SC (10:47)
[2023-02-27] MEDS: Polyethylene Glycol 3350 17 GM PACKET PO (10:47)
[2023-02-27] MEDS: Mirabegron 25 MG TAB.ER.24H 50 MG PO (10:48)
[2023-02-27] MEDS: Senna Tablet 2 TABLET PO ×2 (10:48→21:02)
[2023-02-27 11:45] LABS: Bedside Glucose 307 mg/dL (74-106)
[2023-02-27 17:09] LABS: Bedside Glucose 323 mg/dL (74-106)
[2023-02-27] MEDS: Atorvastatin Calcium 40 MG Tablet PO (21:02)
[2023-02-27] MEDS: QUEtiapine 25 MG Tablet PO (21:02)
[2023-02-27] MEDS: Pramipexole Di-HCl 0.5 MG Tablet 0.75 MG PO (21:02)
[2023-02-27] MEDS: Insulin Glargine-YFGN 100 UNIT/ML Pen 30 UNIT SC (21:10)
[2023-02-27 22:08] LABS: Bedside Glucose 341 mg/dL (74-106)
[2023-02-28 02:22] VITALS: BP 152/87; PULSE 77; RESP 16; TEMP 36.6; O2SAT 95
[2023-02-28] MEDS: Carbidopa/Levodopa 25/100 Tablet PO ×3 (07:23→16:49)
[2023-02-28 07:33] LABS: Absolute Lymphocyte Count 1.23 X10^3/uL (0.83-4.51); Absolute Neutrophil Count 4.4 X10^3/uL (2.0-7.7); Basophil# 0.03 X10^3/uL; Basophil% 0.5 % (0-1); Eosinophil# 0.19 X10^3/uL; Hematocrit 44.2 % (40-54); Hemoglobin 14.7 g/dL (13.0-16.5); Lymphocyte # 1.23 X10^3/ul (0.83-4.51); Lymphocyte % 19.2 % (19-41); Mean Corp Hgb Conc 33.3 g/dL (32-36); Mean Corpuscular Hgb 27.7 pg (27.0-32.0); Mean Corpuscular Volume 83.2 fL (80-94); Mean Platelet Vol. 8.8 fl (6.2-12.0); Monocyte% 7.8 % (0-10); NRBC Flagged by Analyzer 0 % (0-5); Neutrophil % 68.9 % (47-70); Platelet Count 222 K/mm3 (150-450); RBC Distribution Width CV 13.7 % (11.6-14.6); RBC Distribution Width SD 41.5 fl (35.1-43.9); Red Blood Count 5.31 M/mm3 (4.6-6.2); White Blood Count 6.4 K/mm3 (4.4-11.0)
[2023-02-28 07:47] LABS: Anion Gap 4 (5-15); BUN 21 mg/dL (7-18); BUN/Creat Ratio 17.9 RATIO (10-20); Calcium,Total 8.7 mg/dL (8.5-10.1); Chloride 104 mmol/L (98-107); Creatinine, Serum 1.17 mg/dL (0.70-1.30); EST Glomerular Filtration Rate 65 mL/min (>60); Est Glom Filt Rate - Afr Amer 79 mL/min (>60); Estimated Creatinine Clearance 62.64 ml/min; Glucose 232 mg/dL (74-106); Potassium 3.9 mmol/L (3.5-5.1); Sodium Level 136 mmol/L (136-145)
[2023-02-28] MEDS: Insulin Lispro 100 UNIT/ML INSULN.PEN 10 UNIT SC ×3 (07:56→16:49)
[2023-02-28] MEDS: Insulin Lispro 100 UNIT/ML INSULN.PEN SC ×4 (07:57→22:09)
[2023-02-28] MEDS: Miconazole Nitrate 43 GM Bottle 1 APPLIC TOPICAL ×2 (07:58→22:04)
[2023-02-28] MEDS: Menthol/Lanolin/Calamine/Znox 113 GM Tube 1 APPLIC TOPICAL ×2 (07:58→22:04)
[2023-02-28] MEDS: Enoxaparin 40 MG/0.4 ML Syringe SC (07:59)
[2023-02-28] MEDS: Donepezil HCl 5 MG Tablet PO (07:59)
[2023-02-28 08:00] VITALS: BP 143/90; PULSE 81; RESP 16; TEMP 36.7; O2SAT 97
[2023-02-28] MEDS: Venlafaxine HCl 75 MG Tablet PO ×2 (08:00→22:04)
[2023-02-28] MEDS: Mirabegron 25 MG TAB.ER.24H 50 MG PO (08:01)
[2023-02-28 08:10] LABS: Bedside Glucose 231 mg/dL (74-106)
--- NOTE | 2023-02-28 10:10 | PN_ITS ---
Subjective Subjective Patient seen and examined. He had no complaints. He had an uneventful night. Review of systems otherwise negative. He has remained hemodynamically stable. He is awaiting placement. Objective Data Objective Data Vital Signs: Vital Signs Temp Pulse Resp BP Pulse Ox O2 Del Method 98.0 F 81 16 143/90 H 97 Room Air 02/28/23 08:00 02/28/23 08:00 02/28/23 08:00 02/28/23 08:00 02/28/23 08:00 02/28/23 08:00 Oxygen Delivery Method Room Air Weight: 268 lb 11.896 oz Body Mass Index (BMI) 36.4 Intake & Output: Intake and Output for Last 24 Hours 02/26/23 02/27/23 02/28/23 23:59 23:59 23:59 Intake Total 450 / 450 1550 / 1550 Output Total 1850 / 1850 2200 / 2200 Balance -1400 / -1400 -650 / -650 Lab / Micro Data 02/28/23 07:12 02/28/23 07:12 Labs: Laboratory Results - last 24 hr 02/27/23 11:14: POC Glucose 307 H 02/27/23 16:50: POC Glucose 323 H 02/27/23 21:10: POC Glucose 341 H 02/28/23 07:12: WBC 6.4, RBC 5.31, Hgb 14.7, Hct 44.2, MCV 83.2, MCH 27.7, MCHC 33.3, RDW Std Deviation 41.5, RDW Coeff of Yoana 13.7, Plt Count 222, MPV 8.8, Immature Gran % (Auto) 0.600, Neut % (Auto) 68.9, Lymph % (Auto) 19.2, [place] % (Auto) 7.8, Eos % (Auto) 3.0, Baso % (Auto) 0.5, Absolute Neuts (auto) 4.4, Absolute Lymphs (auto) 1.23, Nucleated RBC % 0, Sodium 136, Potassium 3.9, Chloride 104, Carbon Dioxide 28.0, Anion Gap 4 L, BUN 21 H, Creatinine 1.17, Estim Creat Clear Calc 62.64, Est GFR (MDRD) Af Amer 79, Est GFR (MDRD) Non-Af 65, BUN/Creatinine Ratio 17.9, Glucose 232 H, Calcium 8.7 02/28/23 07:52: POC Glucose 231 H Physical Exam Const alert and oriented x3 Constitutional Narrative: obese, flat affect General Appearance: cooperative and comfortable Orientation / Consciousness: lethargic HEENT normocephalic, head/scalp atraumatic, hearing grossly normal bilaterally, nasal mucous membranes and turbinates normal, moist oral mucous membranes and oropharynx normal Eyes PERRL, EOMs intact bilaterally and conjunctivae normal Neck no lymphadenopathy and supple Lymph Lymphatic: no lymphadenopathy noted and no lymphedema noted Chest inspection of chest normal Resp normal respiratory effort, normal air movement, no use of accessory muscles and clear to auscultation bilaterally Cardio regular rate, regular rhythm, S1 normal heart sound, S2 normal heart sound, no murmurs and peripheral pulses 2+ throughout Peripheral Pulses: pulses 2+ throughout GI normal to inspection, nondistended, normoactive bowel sounds, soft to palpation and non-tender GI Narrative: Mildly distended and hard, nontender to palpation. Normoactive bowel sounds. Back/Spine normal ROM Extremity normal to inspection, normal capillary refill, no clubbing, cyanosis or edema, no calf tenderness and no pedal edema General Extremity: no tenderness to palpation of joints or extremities Skin no rashes or lesions noted General Skin Exam: no breakdown and turgor normal Neuro CN's II-XII intact bilaterally, no focal motor deficits, no sensory deficits noted and deep tendon reflexes 2+ bilaterally Motor Exam: strength 5/5 throughout and general weakness Psych mental status grossly normal, thought process normal and cooperative Appearance: appropriate Assessment & Plan Assessment/Plan (1) Weakness: PLAN: Plan #Debility and weakness due to worsening Parkinson's disease * Has been getting weaker at home. * thought to be due to worsening of his Parkinson's disease * on donepezil * PT/OT on board. Also on sinemet * Fall precautions. * #Type 2 diabetes mellitus: On Lantus 30 units nightly. Insulin sliding scale. Checks ACHS. Last A1c on 02/10/2023 was 8.4. #Constipation: On senna and MiraLAX as well as Dulcolax. #Depression and anxiety new behavioral disturbance: On Seroquel nightly. on venlafaxine #Hyperlipidemia: On statin #Overactive bladder: On Myrbetriq DVT prophylaxis: on heparin Disposition: Patient and want him to be placed in TCU. Case management on board to help facilitate placement. Awaiting placement pending precert Total time spent on evaluation and management of patient, reviewing chart and specialist notes, discussing plan with patient, discussion with nursing and ancillary staff as well as documentation: 33 mins Charges/Coding Visit Charges Inpatient E&M: 49315 Subs Hosp L2
[2023-02-28 11:52] LABS: Bedside Glucose 323 mg/dL (74-106)
[2023-02-28 14:00] VITALS: BP 141/81; PULSE 82; RESP 16; TEMP 36.6; O2SAT 99
[2023-02-28 17:36] LABS: Bedside Glucose 392 mg/dL (74-106)
[2023-02-28 19:56] VITALS: BP 147/71; PULSE 79; RESP 18; TEMP 37.1; O2SAT 96
[2023-02-28] MEDS: Atorvastatin Calcium 40 MG Tablet PO (22:03)
[2023-02-28] MEDS: Pramipexole Di-HCl 0.5 MG Tablet 0.75 MG PO (22:03)
[2023-02-28] MEDS: QUEtiapine 25 MG Tablet PO (22:04)
[2023-02-28] MEDS: Insulin Glargine-YFGN 100 UNIT/ML Pen 30 UNIT SC (22:09)
[2023-02-28 23:17] LABS: Bedside Glucose 309 mg/dL (74-106)
[2023-03-01 02:53] VITALS: BP 128/85; PULSE 80; RESP 16; TEMP 36.8; O2SAT 96
[2023-03-01 06:27] LABS: Absolute Lymphocyte Count 1.27 X10^3/uL (0.83-4.51); Absolute Neutrophil Count 5.4 X10^3/uL (2.0-7.7); Basophil# 0.04 X10^3/uL; Basophil% 0.5 % (0-1); Eosinophil# 0.19 X10^3/uL; Eosinophils% 2.5 % (0-5); Hematocrit 42.5 % (40-54); Hemoglobin 13.8 g/dL (13.0-16.5); Lymphocyte # 1.27 X10^3/ul (0.83-4.51); Lymphocyte % 16.9 % (19-41); Mean Corp Hgb Conc 32.5 g/dL (32-36); Mean Corpuscular Hgb 27.2 pg (27.0-32.0); Mean Corpuscular Volume 83.7 fL (80-94); Mean Platelet Vol. 9.2 fl (6.2-12.0); Monocyte# 0.59 X10^3/uL; Monocyte% 7.8 % (0-10); NRBC Flagged by Analyzer 0 % (0-5); Neutrophil # 5.38 X10^3/uL (2.7-7.7); Neutrophil % 71.6 % (47-70); Platelet Count 228 K/mm3 (150-450); RBC Distribution Width CV 13.7 % (11.6-14.6); RBC Distribution Width SD 41.9 fl (35.1-43.9); Red Blood Count 5.08 M/mm3 (4.6-6.2); White Blood Count 7.5 K/mm3 (4.4-11.0)
[2023-03-01] MEDS: Carbidopa/Levodopa 25/100 Tablet PO ×3 (06:32→16:17)
[2023-03-01 06:51] LABS: Anion Gap 5 (5-15); BUN 21 mg/dL (7-18); BUN/Creat Ratio 17.6 RATIO (10-20); Calcium,Total 8.7 mg/dL (8.5-10.1); Chloride 104 mmol/L (98-107); Creatinine, Serum 1.19 mg/dL (0.70-1.30); EST Glomerular Filtration Rate 64 mL/min (>60); Est Glom Filt Rate - Afr Amer 77 mL/min (>60); Estimated Creatinine Clearance 61.59 ml/min; Glucose 258 mg/dL (74-106); Potassium 4.1 mmol/L (3.5-5.1); Sodium Level 136 mmol/L (136-145)
[2023-03-01 07:01] LABS: Bedside Glucose 320 mg/dL (74-106)
[2023-03-01 08:00] VITALS: BP 134/77; PULSE 68; RESP 15; TEMP 36.7; O2SAT 95
[2023-03-01] MEDS: Insulin Lispro 100 UNIT/ML INSULN.PEN 10 UNIT SC ×3 (08:36→16:17)
[2023-03-01] MEDS: Insulin Lispro 100 UNIT/ML INSULN.PEN SC ×4 (08:36→21:29)
[2023-03-01] MEDS: Donepezil HCl 5 MG Tablet PO (08:39)
[2023-03-01] MEDS: Venlafaxine HCl 75 MG Tablet PO ×2 (08:39→21:30)
[2023-03-01] MEDS: Enoxaparin 40 MG/0.4 ML Syringe SC (08:39)
[2023-03-01] MEDS: Miconazole Nitrate 43 GM Bottle 1 APPLIC TOPICAL ×2 (08:39→21:21)
[2023-03-01] MEDS: Polyethylene Glycol 3350 17 GM PACKET PO (08:39)
[2023-03-01] MEDS: Senna Tablet 2 TABLET PO (08:40)
[2023-03-01] MEDS: Menthol/Lanolin/Calamine/Znox 113 GM Tube 1 APPLIC TOPICAL ×2 (08:40→21:21)
--- NOTE | 2023-03-01 09:42 | PN_ITS ---
Subjective Subjective Patient seen and examined. He had no complaints. He has remained hemodynamically stable. He is awaiting placement. Objective Data Objective Data Vital Signs: Vital Signs Temp Pulse Resp BP Pulse Ox O2 Del Method 98.2 F 80 16 128/85 H 96 Room Air 03/01/23 02:53 03/01/23 02:53 03/01/23 02:53 03/01/23 02:53 03/01/23 02:53 03/01/23 02:56 Oxygen Delivery Method Room Air Weight: 268 lb 11.896 oz Body Mass Index (BMI) 36.4 Intake & Output: Intake and Output for Last 24 Hours 02/27/23 02/28/23 03/01/23 23:59 23:59 23:59 Intake Total 1550 / 1550 800 / 800 Output Total 2200 / 2200 700 / 700 1000 / 1000 Balance -650 / -650 -700 / -700 -200 / -200 Lab / Micro Data 03/01/23 05:51 03/01/23 05:51 Labs: Laboratory Results - last 24 hr 02/28/23 11:34: POC Glucose 323 H 02/28/23 16:46: POC Glucose 392 H 02/28/23 22:08: POC Glucose 309 H 03/01/23 05:51: WBC 7.5, RBC 5.08, Hgb 13.8, Hct 42.5, MCV 83.7, MCH 27.2, MCHC 32.5, RDW Std Deviation 41.9, RDW Coeff of Yoana 13.7, Plt Count 228, MPV 9.2, Immature Gran % (Auto) 0.700, Neut % (Auto) 71.6 H, Lymph % (Auto) 16.9 L, [place] % (Auto) 7.8, Eos % (Auto) 2.5, Baso % (Auto) 0.5, Absolute Neuts (auto) 5.4, Absolute Lymphs (auto) 1.27, Nucleated RBC % 0, Sodium 136, Potassium 4.1, Chloride 104, Carbon Dioxide 27.0, Anion Gap 5, BUN 21 H, Creatinine 1.19, Estim Creat Clear Calc 61.59, Est GFR (MDRD) Af Amer 77, Est GFR (MDRD) Non-Af 64, BUN/Creatinine Ratio 17.6, Glucose 258 H, Calcium 8.7 03/01/23 06:31: POC Glucose 320 H Physical Exam Const alert, oriented x3 and no apparent distress Constitutional Narrative: obese, flat affect General Appearance: cooperative and comfortable Orientation / Consciousness: lethargic HEENT normocephalic, head/scalp atraumatic, hearing grossly normal bilaterally, nasal mucous membranes and turbinates normal, moist oral mucous membranes and oropharynx normal Eyes PERRL, EOMs intact bilaterally and conjunctivae normal Neck no lymphadenopathy and supple Lymph Lymphatic: no lymphadenopathy noted and no lymphedema noted Chest inspection of chest normal Resp normal respiratory effort, normal air movement, no use of accessory muscles and clear to auscultation bilaterally Cardio regular rate, regular rhythm, S1 normal heart sound, S2 normal heart sound, no murmurs and peripheral pulses 2+ throughout Peripheral Pulses: pulses 2+ throughout GI normal to inspection, nondistended, normoactive bowel sounds, soft to palpation and non-tender GI Narrative: Mildly distended and hard, nontender to palpation. Normoactive bowel sounds. Back/Spine normal ROM Extremity normal to inspection, normal capillary refill, no clubbing, cyanosis or edema, no calf tenderness and no pedal edema General Extremity: no tenderness to palpation of joints or extremities Skin no rashes or lesions noted General Skin Exam: no breakdown and turgor normal Neuro CN's II-XII intact bilaterally, no focal motor deficits, no sensory deficits noted and deep tendon reflexes 2+ bilaterally Neuro Narrative: S Motor Exam: strength 5/5 throughout and general weakness Psych mental status grossly normal, thought process normal and cooperative Appearance: appropriate Assessment & Plan Assessment/Plan (1) Weakness: PLAN: Plan #Debility and weakness due to worsening Parkinson's disease * Has been getting weaker at home. * thought to be due to worsening of his Parkinson's disease * on donepezil * PT/OT on board. Also on sinemet * Fall precautions. * awaiting placement * #Type 2 diabetes mellitus: On Lantus 30 units nightly. Insulin sliding scale. Checks ACHS. Last A1c on 02/10/2023 was 8.4. #Constipation: On senna and MiraLAX as well as Dulcolax. #Depression and anxiety new behavioral disturbance: On Seroquel nightly. on venlafaxine #Hyperlipidemia: On statin #Overactive bladder: On Myrbetriq DVT prophylaxis: on heparin Disposition: Patient and want him to be placed in TCU. Case management on board to help facilitate placement. Awaiting placement pending precert Total time spent on evaluation and management of patient, reviewing chart and specialist notes, discussing plan with patient, discussion with nursing and ancillary staff as well as documentation: 30 mins Charges/Coding Visit Charges Inpatient E&M: 00093 Subs Hosp L2
[2023-03-01] MEDS: Vibegron 75 MG TABLET PO (11:24)
[2023-03-01 11:56] LABS: Bedside Glucose 289 mg/dL (74-106)
[2023-03-01 14:35] VITALS: BP 136/83; PULSE 91; RESP 16; TEMP 36.4; O2SAT 96
[2023-03-01 16:41] LABS: Bedside Glucose 280 mg/dL (74-106)
[2023-03-01 21:13] VITALS: BP 130/53; PULSE 87; RESP 16; TEMP 36.6; O2SAT 97
[2023-03-01] MEDS: Atorvastatin Calcium 40 MG Tablet PO (21:21)
[2023-03-01] MEDS: Pramipexole Di-HCl 0.5 MG Tablet 0.75 MG PO (21:21)
[2023-03-01] MEDS: QUEtiapine 25 MG Tablet PO (21:22)
[2023-03-01] MEDS: Insulin Glargine-YFGN 100 UNIT/ML Pen 30 UNIT SC (21:25)
[2023-03-01 21:49] LABS: Bedside Glucose 244 mg/dL (74-106)
[2023-03-02 04:47] VITALS: BP 150/88; PULSE 86; RESP 16; TEMP 36.5; O2SAT 95
[2023-03-02 05:51] LABS: Absolute Lymphocyte Count 1.05 X10^3/uL (0.83-4.51); Absolute Neutrophil Count 4.6 X10^3/uL (2.0-7.7); Basophil# 0.05 X10^3/uL; Basophil% 0.8 % (0-1); Eosinophil# 0.19 X10^3/uL; Eosinophils% 2.9 % (0-5); Hemoglobin 13.3 g/dL (13.0-16.5); Lymphocyte # 1.05 X10^3/ul (0.83-4.51); Lymphocyte % 16.2 % (19-41); Mean Corp Hgb Conc 32.4 g/dL (32-36); Mean Corpuscular Volume 83.2 fL (80-94); Mean Platelet Vol. 8.9 fl (6.2-12.0); Monocyte# 0.56 X10^3/uL; Monocyte% 8.6 % (0-10); NRBC Flagged by Analyzer 0 % (0-5); Neutrophil # 4.58 X10^3/uL (2.7-7.7); Neutrophil % 70.7 % (47-70); Platelet Count 218 K/mm3 (150-450); RBC Distribution Width CV 13.7 % (11.6-14.6); RBC Distribution Width SD 41.4 fl (35.1-43.9); Red Blood Count 4.93 M/mm3 (4.6-6.2); White Blood Count 6.5 K/mm3 (4.4-11.0)
[2023-03-02 06:13] LABS: Anion Gap 6 (5-15); BUN 19 mg/dL (7-18); BUN/Creat Ratio 16.7 RATIO (10-20); Calcium,Total 8.1 mg/dL (8.5-10.1); Chloride 106 mmol/L (98-107); Creatinine, Serum 1.14 mg/dL (0.70-1.30); EST Glomerular Filtration Rate 67 mL/min (>60); Est Glom Filt Rate - Afr Amer 81 mL/min (>60); Estimated Creatinine Clearance 64.29 ml/min; Glucose 258 mg/dL (74-106); Potassium 4.2 mmol/L (3.5-5.1); Sodium Level 138 mmol/L (136-145)
[2023-03-02] MEDS: Insulin Lispro 100 UNIT/ML INSULN.PEN SC ×4 (06:31→23:01)
[2023-03-02] MEDS: Insulin Lispro 100 UNIT/ML INSULN.PEN 10 UNIT SC ×3 (06:31→16:58)
[2023-03-02] MEDS: Carbidopa/Levodopa 25/100 Tablet PO ×3 (06:33→16:58)
[2023-03-02 07:44] LABS: Bedside Glucose 227 mg/dL (74-106)
[2023-03-02 08:40] VITALS: BP 163/72; PULSE 88; RESP 18; TEMP 36.4; O2SAT 94
[2023-03-02] MEDS: Polyethylene Glycol 3350 17 GM PACKET PO (08:44)
[2023-03-02] MEDS: Enoxaparin 40 MG/0.4 ML Syringe SC (08:44)
[2023-03-02] MEDS: Donepezil HCl 5 MG Tablet PO (08:45)
[2023-03-02] MEDS: Miconazole Nitrate 43 GM Bottle 1 APPLIC TOPICAL ×2 (08:45→22:54)
[2023-03-02] MEDS: Vibegron 75 MG TABLET PO (08:45)
[2023-03-02] MEDS: Menthol/Lanolin/Calamine/Znox 113 GM Tube 1 APPLIC TOPICAL ×2 (08:45→22:54)
[2023-03-02] MEDS: Senna Tablet 2 TABLET PO ×2 (08:45→22:55)
[2023-03-02] MEDS: 0.9% Saline Lock 10 ML Syringe IV (08:45)
[2023-03-02] MEDS: Venlafaxine HCl 75 MG Tablet PO ×2 (08:45→22:55)
--- NOTE | 2023-03-02 09:46 | PN.HOSP_ITS ---
Subjective Subjective Doing well, no issues overnight Objective Data Objective Data Vital Signs: Vital Signs Temp Pulse Resp BP Pulse Ox O2 Del Method 97.5 F L 88 18 163/72 H 94 Room Air 03/02/23 08:40 03/02/23 08:40 03/02/23 08:40 03/02/23 08:40 03/02/23 08:40 03/02/23 08:45 Oxygen Delivery Method Room Air Weight: 268 lb 11.896 oz Body Mass Index (BMI) 36.4 Intake & Output: Intake and Output for Last 24 Hours 03/01/23 03/02/23 03/03/23 03:59 03:59 03:59 Intake Total 500 / 500 500 / 500 100 / 100 Output Total 1400 / 1400 2100 / 2100 1300 / 1300 Balance -900 / -900 -1600 / -1600 -1200 / -1200 Lab / Micro Data 03/02/23 05:23 03/02/23 05:23 Labs: Laboratory Results - last 24 hr 03/01/23 11:17: POC Glucose 289 H 03/01/23 16:17: POC Glucose 280 H 03/01/23 21:29: POC Glucose 244 H 03/02/23 05:23: WBC 6.5, RBC 4.93, Hgb 13.3, Hct 41.0, MCV 83.2, MCH 27.0, MCHC 32.4, RDW Std Deviation 41.4, RDW Coeff of Yoana 13.7, Plt Count 218, MPV 8.9, Immature Gran % (Auto) 0.800, Neut % (Auto) 70.7 H, Lymph % (Auto) 16.2 L, [place] % (Auto) 8.6, Eos % (Auto) 2.9, Baso % (Auto) 0.8, Absolute Neuts (auto) 4.6, Absolute Lymphs (auto) 1.05, Nucleated RBC % 0, Sodium 138, Potassium 4.2, Chloride 106, Carbon Dioxide 26.0, Anion Gap 6, BUN 19 H, Creatinine 1.14, Estim Creat Clear Calc 64.29, Est GFR (MDRD) Af Amer 81, Est GFR (MDRD) Non-Af 67, BUN/Creatinine Ratio 16.7, Glucose 258 H, Calcium 8.1 L 03/02/23 06:30: POC Glucose 227 H Physical Exam Narrative General: Alert, Oriented x3, Cooperative, No apparent distress HEENT: Atraumatic, PERRLA, EOMI, Normocephalic Oral: Moist Mucosa Neck: Supple, No JVD Lungs: Diminished, Normal air movement, No rhonchi, No wheeze, No rales Cardiovascular: Regular rate, Regular Rhythm, Normal S1, Normal S2, No murmurs Abdomen: Soft, Non Tender, Non-Distended, No Hepato-splenomegaly Extremities: Trace edema, Capillary Refill Less than 3 Seconds Skin: No rashes, No breakdown Musculoskeletal: No Tenderness to Palpation of Joints or Extremities Neurological: Moves all extremities, no focal deficit, Motor Exam 5/5 strength throughout, Sensory exam intact to light touch and pain Psych/Mental Status: Normal Affect, Appropriate Assessment & Plan Assessment/Plan (1) Weakness: PLAN: Plan #Debility and weakness due to worsening Parkinson's disease * Has been getting weaker at home. * thought to be due to worsening of his Parkinson's disease * on donepezil * PT/OT on board. Also on sinemet * Fall precautions. * awaiting placement #Type 2 diabetes mellitus: On Lantus 30 units nightly. Insulin sliding scale. Checks ACHS. Last A1c on 02/10/2023 was 8.4. Will monitor and make adjustments as necessary #Constipation: On senna and MiraLAX as well as Dulcolax. #Depression and anxiety new behavioral disturbance: On Seroquel nightly. on venlafaxine #Hyperlipidemia: On statin #Overactive bladder: On Myrbetriq DVT: Heparin Charges/Coding Visit Charges Inpatient E&M: 54786 Subs Hosp L2
[2023-03-02 12:30] LABS: Bedside Glucose 258 mg/dL (74-106)
[2023-03-02 14:45] VITALS: BP 135/67; PULSE 76; RESP 18; TEMP 36.4; O2SAT 92
[2023-03-02 17:23] LABS: Bedside Glucose 265 mg/dL (74-106)
[2023-03-02] MEDS: Pramipexole Di-HCl 0.5 MG Tablet 0.75 MG PO (22:55)
[2023-03-02] MEDS: QUEtiapine 25 MG Tablet PO (22:55)
[2023-03-02] MEDS: Atorvastatin Calcium 40 MG Tablet PO (22:55)
[2023-03-02] MEDS: Insulin Glargine-YFGN 100 UNIT/ML Pen 30 UNIT SC (22:58)
[2023-03-02 23:28] LABS: Bedside Glucose 263 mg/dL (74-106)
[2023-03-03 02:58] VITALS: BP 137/80; PULSE 77; RESP 16; TEMP 36.6; O2SAT 98
[2023-03-03] MEDS: Insulin Lispro 100 UNIT/ML INSULN.PEN 10 UNIT SC ×3 (06:37→16:44)
[2023-03-03] MEDS: Insulin Lispro 100 UNIT/ML INSULN.PEN SC ×4 (06:38→22:19)
[2023-03-03] MEDS: Carbidopa/Levodopa 25/100 Tablet PO ×3 (06:38→16:44)
[2023-03-03 07:00] LABS: Bedside Glucose 223 mg/dL (74-106)
[2023-03-03] MEDS: Enoxaparin 40 MG/0.4 ML Syringe SC (07:41)
[2023-03-03] MEDS: Polyethylene Glycol 3350 17 GM PACKET PO (07:41)
[2023-03-03] MEDS: Vibegron 75 MG TABLET PO (07:41)
[2023-03-03] MEDS: Senna Tablet 2 TABLET PO ×2 (07:41→22:16)
[2023-03-03] MEDS: Miconazole Nitrate 43 GM Bottle 1 APPLIC TOPICAL ×2 (07:41→22:16)
[2023-03-03] MEDS: Venlafaxine HCl 75 MG Tablet PO ×2 (07:41→22:16)
[2023-03-03] MEDS: Donepezil HCl 5 MG Tablet PO (07:41)
[2023-03-03] MEDS: Menthol/Lanolin/Calamine/Znox 113 GM Tube 1 APPLIC TOPICAL ×2 (07:42→22:16)
[2023-03-03 08:00] VITALS: BP 130/71; PULSE 80; RESP 16; TEMP 37; O2SAT 97
--- NOTE | 2023-03-03 09:11 | PN.HOSP_ITS ---
Subjective Subjective Doing well, no issues overnight Objective Data Objective Data Vital Signs: Vital Signs Temp Pulse Resp BP Pulse Ox O2 Del Method 98.6 F 80 16 130/71 H 97 Room Air 03/03/23 08:00 03/03/23 08:00 03/03/23 08:00 03/03/23 08:00 03/03/23 08:00 03/03/23 08:00 Oxygen Delivery Method Room Air Weight: 268 lb 11.896 oz Body Mass Index (BMI) 36.4 Intake & Output: Intake and Output for Last 24 Hours 03/02/23 03/03/23 03/04/23 03:59 03:59 03:59 Intake Total 500 / 500 300 / 300 200 / 200 Output Total 2100 / 2100 2550 / 2550 450 / 450 Balance -1600 / -1600 -2250 / -2250 -250 / -250 Lab / Micro Data 03/02/23 05:23 03/02/23 05:23 Labs: Laboratory Results - last 24 hr 03/02/23 12:05: POC Glucose 258 H 03/02/23 16:55: POC Glucose 265 H 03/02/23 23:00: POC Glucose 263 H 03/03/23 06:37: POC Glucose 223 H Physical Exam Narrative General: Alert, Oriented x3, Cooperative, No apparent distress HEENT: Atraumatic, PERRLA, EOMI, Normocephalic Oral: Moist Mucosa Neck: Supple, No JVD Lungs: Diminished, Normal air movement, No rhonchi, No wheeze, No rales Cardiovascular: Regular rate, Regular Rhythm, Normal S1, Normal S2, No murmurs Abdomen: Soft, Non Tender, Non-Distended, No Hepato-splenomegaly Extremities: Trace edema, Capillary Refill Less than 3 Seconds Skin: No rashes, No breakdown Musculoskeletal: No Tenderness to Palpation of Joints or Extremities Neurological: Moves all extremities, no focal deficit, Motor Exam 5/5 strength throughout, Sensory exam intact to light touch and pain Psych/Mental Status: Normal Affect, Appropriate Assessment & Plan Assessment/Plan (1) Weakness: PLAN: Plan 1. Debility and weakness due to worsening Parkinson's disease * Has been getting weaker at home. * thought to be due to worsening of his Parkinson's disease * on donepezil * PT/OT on board. Also on sinemet * Fall precautions. * Awaiting pre-CERT today for placement transitional care unit for rehab 2. Type 2 diabetes mellitus ? On Lantus 30 units nightly. Insulin sliding scale. ? Accu-Cheks ACHS. Last A1c on 02/10/2023 was 8.4. ? Will monitor and make adjustments as necessary 3. Depression and anxiety new behavioral disturbance ? On Seroquel nightly. on venlafaxine ? Stable 4. Hyperlipidemia ? Stable ? On statin 5. Overactive bladder ? Stable ? On Myrbetriq DVT: Heparin Charges/Coding Visit Charges Inpatient E&M: 70025 Subs Hosp L2
[2023-03-03 12:18] LABS: Bedside Glucose 329 mg/dL (74-106)
--- NOTE | 2023-03-03 12:40 | CASEMGMT ---
Social work-discharge planning update Spoke with Emeli in admissions for the transitional care unit. Ze is still pending with insurance. Plan: TCU pending insurance authorization. -AGUSTÍN Richardson, BUSINESS DEVELOPMENT ASSOCIATE
[2023-03-03 14:18] VITALS: BP 153/70; PULSE 91; RESP 18; TEMP 36.9; O2SAT 94
[2023-03-03] MEDS: 0.9% Saline Lock 10 ML Syringe IV (16:43)
[2023-03-03 17:50] LABS: Bedside Glucose 398 mg/dL (74-106)
[2023-03-03] MEDS: Atorvastatin Calcium 40 MG Tablet PO (22:16)
[2023-03-03] MEDS: QUEtiapine 25 MG Tablet PO (22:16)
[2023-03-03] MEDS: Pramipexole Di-HCl 0.5 MG Tablet 0.75 MG PO (22:16)
[2023-03-03] MEDS: Insulin Glargine-YFGN 100 UNIT/ML Pen 30 UNIT SC (22:17)
[2023-03-03 22:41] VITALS: BP 134/91; PULSE 82; RESP 16; TEMP 36.9; O2SAT 94
[2023-03-03 22:57] LABS: Bedside Glucose 313 mg/dL (74-106)
[2023-03-04] MEDS: Carbidopa/Levodopa 25/100 Tablet PO ×3 (05:55→16:35)
[2023-03-04 05:57] VITALS: BP 142/86; PULSE 76; RESP 16; TEMP 36.5; O2SAT 96
[2023-03-04] MEDS: Insulin Lispro 100 UNIT/ML INSULN.PEN SC ×4 (07:41→23:29)
[2023-03-04] MEDS: Insulin Lispro 100 UNIT/ML INSULN.PEN 10 UNIT SC ×3 (07:41→16:33)
[2023-03-04] MEDS: Enoxaparin 40 MG/0.4 ML Syringe SC (07:43)
[2023-03-04] MEDS: Venlafaxine HCl 75 MG Tablet PO ×2 (07:43→23:21)
[2023-03-04] MEDS: Donepezil HCl 5 MG Tablet PO (07:43)
[2023-03-04] MEDS: Vibegron 75 MG TABLET PO (07:43)
[2023-03-04] MEDS: Senna Tablet 2 TABLET PO (07:43)
[2023-03-04] MEDS: Polyethylene Glycol 3350 17 GM PACKET PO (07:43)
[2023-03-04] MEDS: Miconazole Nitrate 43 GM Bottle 1 APPLIC TOPICAL ×2 (07:44→23:22)
[2023-03-04] MEDS: Menthol/Lanolin/Calamine/Znox 113 GM Tube 1 APPLIC TOPICAL ×2 (07:44→23:22)
[2023-03-04 07:54] LABS: Bedside Glucose 220 mg/dL (74-106)
--- NOTE | 2023-03-04 09:33 | PCM.PN.HOSP ---
Subjective Subjective Doing well, no issues overnight. No complaints Objective Data Objective Data Vital Signs: Vital Signs Temp Pulse Resp BP Pulse Ox O2 Del Method 97.7 F L 76 16 142/86 H 96 Room Air 03/04/23 05:57 03/04/23 05:57 03/04/23 05:57 03/04/23 05:57 03/04/23 05:57 03/04/23 05:57 Oxygen Delivery Method Room Air Weight: 268 lb 11.896 oz Body Mass Index (BMI) 36.4 Intake & Output: Intake and Output for Last 24 Hours 03/03/23 03/04/23 03/05/23 03:59 03:59 03:59 Intake Total 300 / 300 200 / 200 Output Total 2550 / 2550 2200 / 2200 300 / 300 Balance -2250 / -2250 -2000 / -2000 -300 / -300 Lab / Micro Data 03/02/23 05:23 03/02/23 05:23 Labs: Laboratory Results - last 24 hr 03/03/23 11:55: POC Glucose 329 H 03/03/23 16:42: POC Glucose 398 H 03/03/23 22:18: POC Glucose 313 H 03/04/23 07:37: POC Glucose 220 H Physical Exam Narrative General: Alert, Oriented x3, Cooperative, No apparent distress HEENT: Atraumatic, PERRLA, EOMI, Normocephalic Oral: Moist Mucosa Neck: Supple, No JVD Lungs: Diminished, Normal air movement, No rhonchi, No wheeze, No rales Cardiovascular: Regular rate, Regular Rhythm, Normal S1, Normal S2, No murmurs Abdomen: Soft, Non Tender, Non-Distended, No Hepato-splenomegaly Extremities: Trace edema, Capillary Refill Less than 3 Seconds Skin: No rashes, No breakdown Musculoskeletal: No Tenderness to Palpation of Joints or Extremities Neurological: Moves all extremities, no focal deficit, Motor Exam 5/5 strength throughout, Sensory exam intact to light touch and pain Psych/Mental Status: Normal Affect, Appropriate Assessment & Plan Assessment/Plan (1) Weakness: PLAN: Plan 1. Debility and weakness due to worsening Parkinson's disease ?Has been getting weaker at home. ?Thought to be due to worsening of his Parkinson's disease ?On donepezil ?PT/OT on board. Also on sinemet ?Fall precautions. ?Awaiting to go to TCU 2. Type 2 diabetes mellitus ? On Lantus 30 units nightly. Insulin sliding scale. ? Accu-Cheks ACHS. Last A1c on 02/10/2023 was 8.4. ? Will monitor and make adjustments as necessary 3. Depression and anxiety new behavioral disturbance ? On Seroquel nightly. on venlafaxine ? Stable 4. Hyperlipidemia ? Stable ? On statin 5. Overactive bladder ? Stable ? On Myrbetriq DVT: Heparin Charges/Coding Visit Charges Inpatient E&M: 02824 Subs Hosp L2
[2023-03-04 09:34] VITALS: BP 147/84; PULSE 78; RESP 16; TEMP 36.6; O2SAT 97
[2023-03-04 11:59] LABS: Bedside Glucose 305 mg/dL (74-106)
[2023-03-04 16:00] VITALS: BP 140/87; PULSE 77; RESP 16; TEMP 36.4; O2SAT 95
[2023-03-04 17:39] LABS: Bedside Glucose 317 mg/dL (74-106)
[2023-03-04] MEDS: Atorvastatin Calcium 40 MG Tablet PO (23:22)
[2023-03-04] MEDS: Pramipexole Di-HCl 0.5 MG Tablet 0.75 MG PO (23:22)
[2023-03-04] MEDS: QUEtiapine 25 MG Tablet PO (23:23)
[2023-03-04] MEDS: Insulin Glargine-YFGN 100 UNIT/ML Pen 30 UNIT SC (23:28)
[2023-03-04 23:49] VITALS: BP 144/84; PULSE 71; RESP 16; TEMP 36.4; O2SAT 97
[2023-03-05 01:42] LABS: Bedside Glucose 267 mg/dL (74-106)
[2023-03-05] MEDS: Carbidopa/Levodopa 25/100 Tablet PO ×2 (06:23→11:31)
[2023-03-05 06:28] VITALS: BP 145/81; PULSE 70; RESP 16; TEMP 36.4; O2SAT 96
[2023-03-05 07:27] LABS: Absolute Neutrophil Count 6.4 X10^3/uL (2.0-7.7); Basophil# 0.03 X10^3/uL; Basophil% 0.4 % (0-1); Eosinophil# 0.19 X10^3/uL; Eosinophils% 2.3 % (0-5); Hematocrit 42.7 % (40-54); Hemoglobin 13.9 g/dL (13.0-16.5); Lymphocyte % 12.1 % (19-41); Mean Corp Hgb Conc 32.6 g/dL (32-36); Mean Corpuscular Hgb 27.4 pg (27.0-32.0); Mean Corpuscular Volume 84.1 fL (80-94); Mean Platelet Vol. 9.3 fl (6.2-12.0); Monocyte# 0.64 X10^3/uL; Monocyte% 7.7 % (0-10); NRBC Flagged by Analyzer 0 % (0-5); Neutrophil # 6.35 X10^3/uL (2.7-7.7); Neutrophil % 76.8 % (47-70); Platelet Count 221 K/mm3 (150-450); RBC Distribution Width CV 13.8 % (11.6-14.6); RBC Distribution Width SD 42.1 fl (35.1-43.9); Red Blood Count 5.08 M/mm3 (4.6-6.2); White Blood Count 8.3 K/mm3 (4.4-11.0)
[2023-03-05] MEDS: Insulin Lispro 100 UNIT/ML INSULN.PEN 10 UNIT SC ×2 (07:45→11:30)
[2023-03-05] MEDS: Insulin Lispro 100 UNIT/ML INSULN.PEN SC ×2 (07:45→11:30)
[2023-03-05] MEDS: Donepezil HCl 5 MG Tablet PO (07:46)
[2023-03-05] MEDS: Venlafaxine HCl 75 MG Tablet PO (07:47)
[2023-03-05] MEDS: Senna Tablet 2 TABLET PO (07:47)
[2023-03-05] MEDS: Vibegron 75 MG TABLET PO (07:47)
[2023-03-05] MEDS: Enoxaparin 40 MG/0.4 ML Syringe SC (07:47)
[2023-03-05] MEDS: Menthol/Lanolin/Calamine/Znox 113 GM Tube 1 APPLIC TOPICAL (07:48)
[2023-03-05] MEDS: Miconazole Nitrate 43 GM Bottle 1 APPLIC TOPICAL (07:48)
[2023-03-05 07:52] LABS: Anion Gap 6 (5-15); BUN 22 mg/dL (7-18); BUN/Creat Ratio 20.4 RATIO (10-20); Calcium,Total 8.8 mg/dL (8.5-10.1); Chloride 104 mmol/L (98-107); Creatinine, Serum 1.08 mg/dL (0.70-1.30); EST Glomerular Filtration Rate 71 mL/min (>60); Est Glom Filt Rate - Afr Amer 86 mL/min (>60); Estimated Creatinine Clearance 67.86 ml/min; Glucose 281 mg/dL (74-106); Potassium 4.6 mmol/L (3.5-5.1); Sodium Level 137 mmol/L (136-145)
[2023-03-05 08:26] LABS: Bedside Glucose 295 mg/dL (74-106)
[2023-03-05 09:10] VITALS: BP 147/80; PULSE 75; RESP 14; TEMP 36.4; O2SAT 97
--- NOTE | 2023-03-05 09:33 | PCM.PN.HOSP ---
Reason for Visit Reason for Visit: Diagnoses Parkinson's disease without dyskinesia, without mention of fluctuations (02/25/23) Repeated falls (02/25/23) Weakness (02/25/23) Objective Data Objective Data Vital Signs: Vital Signs Temp Pulse Resp BP Pulse Ox O2 Del Method 97.6 F L 75 14 147/80 H 97 Room Air 03/05/23 09:10 03/05/23 09:10 03/05/23 09:10 03/05/23 09:10 03/05/23 09:10 03/05/23 09:10 Oxygen Delivery Method Room Air Weight: 121.9 kg Body Mass Index (BMI) 36.4 Intake & Output: Intake and Output for Last 24 Hours 03/03/23 03/04/23 03/05/23 23:59 23:59 23:59 Intake Total 400 / 400 Output Total 2500 / 2500 1025 / 1025 900 / 900 Balance -2100 / -2100 -1025 / -1025 -900 / -900 Lab / Micro Data 03/05/23 06:42 03/05/23 06:42 Labs: Laboratory Results - last 24 hr 03/04/23 11:15: POC Glucose 305 H 03/04/23 16:32: POC Glucose 317 H 03/04/23 23:26: POC Glucose 267 H 03/05/23 06:42: WBC 8.3, RBC 5.08, Hgb 13.9, Hct 42.7, MCV 84.1, MCH 27.4, MCHC 32.6, RDW Std Deviation 42.1, RDW Coeff of Yoana 13.8, Plt Count 221, MPV 9.3, Immature Gran % (Auto) 0.700, Neut % (Auto) 76.8 H, Lymph % (Auto) 12.1 L, [place] % (Auto) 7.7, Eos % (Auto) 2.3, Baso % (Auto) 0.4, Absolute Neuts (auto) 6.4, Absolute Lymphs (auto) 1.00, Nucleated RBC % 0, Sodium 137, Potassium 4.6, Chloride 104, Carbon Dioxide 27.0, Anion Gap 6, BUN 22 H, Creatinine 1.08, Estim Creat Clear Calc 67.86, Est GFR (MDRD) Af Amer 86, Est GFR (MDRD) Non-Af 71, BUN/Creatinine Ratio 20.4 H, Glucose 281 H, Calcium 8.8 03/05/23 07:44: POC Glucose 295 H Physical Exam Narrative GENERAL: cooperative HEENT: Atraumatic; normocephalic EYES; Anicteric, Normal Conjunctiva NECK; supple, normal thyroid, RESPIRATORY: Diminished to auscultation CARDIOVASCULAR: Regular S1 S2, GI: soft, normoactive bowel sounds, : No Renal angle tenderness; EXTREMITIES: No edema, no clubbing, MUSCULOSKELETAL: no muscle wasting NEURO: Awake; no lateralizing signs. SKIN: No Rash PSYCH; Flat affect Assessment & Plan Assessment/Plan (1) Weakness: PLAN: Plan 1. Debility and weakness due to worsening Parkinson's disease ?Has been getting weaker at home. ?Thought to be due to worsening of his Parkinson's disease ?On donepezil ?PT/OT on board. Also on sinemet ?Fall precautions. ?Awaiting to go to TCU 2. Type 2 diabetes mellitus ? On Lantus 30 units nightly. Insulin sliding scale. ? Accu-Cheks ACHS. Last A1c on 02/10/2023 was 8.4. ? Will monitor and make adjustments as necessary 3. Depression and anxiety new behavioral disturbance ? On Seroquel nightly. on venlafaxine ? Stable 4. Hyperlipidemia ? Stable ? On statin 5. Overactive bladder ? Stable ? On Myrbetriq DVT: Heparin
--- NOTE | 2023-03-05 10:18 | PCM.TXEXTCAR ---
Diet Diet Order/Speech Therapy: 02/25/23 21:03 Diet: Consistent Carb - Calorie Controlled Food consistency:: Regular Liquid Consistency:: Regular/Thin How many daily calories?: 2000 calorie Routine Orders/Code Status Code Status: Full Code Wound(s) RLE: Wound Type: SCABS Right second toe: Wound Type: SCAB Therapies Physical Therapy: Eval and Treat Occupational Therapy: Eval and Treat Problem/Diagnosis (1) Weakness: Status: Acute Code(s): R53.1 - Weakness Plan Patient is a 72-year-old gentleman admitted with progressive generalized weakness 1. Physical deconditioning -Secondary to his Parkinson's disease. Requested for PT OT eval and mental health social worker to assist with discharge planning 2. Parkinson disease ? Patient is on Sinemet did continue 3. Diabetes mellitus type 2 ? Patient is on Lantus at night and continue in addition to Accu-Cheks before meals and at bedtime with sliding scale coverage 4. Depression with anxiety ? Patient is on venlafaxine as well as Seroquel at night continue 5. Class II obesity with BMI of 36.4 ? Weight loss advised 6. Dyslipidemia -Patient is on statin therapy, continued at home dose 7. Overactive bladder ? Stable On Myrbetriq 8. DVT: Heparin Allergies/Procedures Done in Hospital Allergies sulfamethoxazole [From Bactrim] Allergy (Verified 02/25/23 16:21) Rash trimethoprim [From Bactrim] Allergy (Verified 02/25/23 16:21) Rash Type of Care/Length of Stay Estimated LOS: Convalescent Care Less Than 30 days Type of Care Needed: Skilled Rehab Potential: Good Prognosis: Good Additional Orders/Day of Discharge Day of Discharge: 03/05/23 Discharge Plan Admission Admit Date/Time: 02/25/23 20:16 Attending Provider: Joshua Flowers Primary Care Provider: Roman Gutierrez Consulting Providers: Duran Carlisle; Radha Jiménez; Kenton Oseguera Discharge Orders/Prescriptions Prescriptions: New acetaminophen 325 mg Tablet 650 mg PO Q6H PRN PRN (Reason: Pain 1-10 Or Fever>100.7) Qty: 0 0RF miconazole nitrate [Desenex] 2 % Powder 1 applic topical BID Qty: 0 0RF Protocol: *Topical Application Instructions APPLICATION INSTRUCTIONS: yeasty folds bisacodyl 10 mg Suppository 10 mg [place] DAILY PRN (Reason: Constipation) Qty: 0 0RF Glucagon Emergency Kit (human) 1 mg Recon Soln 1 mg IM X1 PRN (Reason: Hypoglycemia) Qty: 0 0RF insulin lispro [Humalog KwikPen Insulin] 100 unit/mL Insulin Pen See Protocol subcut ACHS Qty: 0 0RF Protocol: 4. Sliding Scale Insulin High-Med Dosing Condition: 150-199 mg/dl = 2 units Condition: 200-259 mg/dl = 4 units Condition: 260-324 mg/dl = 6 units Condition: 325-374 mg/dl = 8 units Condition: 375-409 mg/dl = 10 units Condition: 410-449 mg/dl = 11 units Condition: Greater than 449 call physician Protocol Text: - Use for Total Daily Dose of Insulin 56-80 units - Patient who are insulin resistant or septic HIGH MEDIUM DOSING ALGORITHM insulin lispro [Humalog KwikPen Insulin] 100 unit/mL Insulin Pen 10 unit subcut TIDAC Qty: 0 0RF Protocol: 4. Sliding Scale Insulin High-Med Dosing menthol-zinc oxide [Calmoseptine] 0.44-20.6 % Ointment 1 applic topical BID Qty: 0 0RF Protocol: *Topical Application Instructions APPLICATION INSTRUCTIONS: redness to buttock insulin glargine-yfgn 100 unit/mL (3 mL) Insulin Pen 30 unit subcut QHS Qty: 0 0RF Continued Calcium 600 with Vitamin D3 600 mg-10 mcg (400 unit) tablet,chewable 1 tab PO DAILY carbidopa-levodopa 25-100 mg tablet 1 tab PO TID (DME) FreeStyle Aliya 2 Sensor Kit See Rx Instructions .Route Rx Instructions: As directed (DME) FreeStyle Aliya 2 Sensor Kit See Rx Instructions .Route Rx Instructions: As directed icosapent ethyl [Vascepa] 1 gram capsule 2 g PO BID Hold Instructions: pt refused Patient Comments: not currently taking as of 02/25/23 due to difficult to swallow nitroglycerin 0.4 mg tablet, sublingual 0.4 mg sublingual Q5M PRN (Reason: chest pain) Rx Instructions: do not exceed 3 doses per episode polyethylene glycol 3350 [Miralax] 17 gram/dose powder 4 g PO DAILY PRN (Reason: constipation) pramipexole 0.75 mg tablet 0.75 mg PO QHS rosuvastatin 20 mg tablet 20 mg PO DAILY venlafaxine 75 mg capsule,extended release 24hr 75 mg PO BID Qty: 60 1RF Myrbetriq 50 mg tablet extended release 24 hr 50 mg PO DAILY Qty: 30 1RF quetiapine 25 mg tablet 12.5 mg PO QHS Patient Comments: take 1/2 tablet by mouth at bedtime venlafaxine 75 mg tablet 75 mg PO BID Patient Comments: take 1 tablet by mouth twice a day donepezil 5 mg tablet 5 mg PO .COMPLEX Patient Comments: take 1 tablet by mouth EVERY MORNING WITH BREAKFAST Rx Instructions: 5 mg orally daily with breakfast; (DME) pen needle, diabetic [BD Ultra-Fine Rose Mary Pen Needle] 32 gauge x /32 needle See Rx Instructions .ROUTE .MEDSUPPLY Qty: 100 6RF Rx Instructions: tid metformin 500 mg tablet extended release 24 hr 1,000 mg PO BID Qty: 360 1RF Discontinued Humalog Mix 50-50 KwikPen 100 unit/mL (50-50) insulin pen 33 unit subcut .COMPLEX Patient Comments: not sure if it's 33 or 34 with breakfast Rx Instructions: 33 units subcutaneously 33 units with breakfast; 22 unit with lunch; 28 units with dinner Referrals / Follow Up: Roman Gutierrez MD [Primary Care Provider] - Disposition Disposition (needs filled in before D/C Order can be placed[facility]
--- NOTE | 2023-03-05 10:25 | DS.PCM_ITS ---
Providers Date of Admission: 02/25/23 Date of Discharge: 03/05/23 Primary Care Physician: Dr. Roman Gutierrez MD Reason For Visit: DEBILITY Diagnosis Discharge Diagnosis (1) Weakness: Status: Acute Code(s): R53.1 - Weakness Plan Patient is a 72-year-old gentleman admitted with progressive generalized weakness 1. Physical deconditioning -Secondary to his Parkinson's disease. Requested for PT OT eval and social worker aide to assist with discharge planning 2. Parkinson disease ? Patient is on Sinemet did continue 3. Diabetes mellitus type 2 ? Patient is on Lantus at night and continue in addition to Accu-Cheks before meals and at bedtime with sliding scale coverage 4. Depression with anxiety ? Patient is on venlafaxine as well as Seroquel at night continue 5. Class II obesity with BMI of 36.4 ? Weight loss advised 6. Dyslipidemia -Patient is on statin therapy, continued at home dose 7. Overactive bladder ? Stable On Myrbetriq Medications at Discharge Home Medications calcium carbonate 600 mg-vitamin D3 10 mcg (400 unit) chewable tablet (Calcium 600 with Vitamin D3) 1 tab PO DAILY viatmin 09/01/22 carbidopa 25 mg-levodopa 100 mg tablet 1 tab PO TID parkinson 09/01/22 flash glucose sensor (FreeStyle Aliya 2 Sensor kit) 09/01/22 flash glucose sensor (FreeStyle Aliya 2 Sensor kit) 09/01/22 icosapent ethyl 1 gram capsule (Vascepa) 2 g PO BID hyperlipidemia 09/01/22 nitroglycerin 0.4 mg sublingual tablet 0.4 mg sublingual Q5M PRN chest pain 09/01/22 polyethylene glycol 3350 17 gram/dose oral powder (Miralax) 4 g PO DAILY PRN constipation 09/01/22 pramipexole 0.75 mg tablet 0.75 mg PO QHS restless legs 09/01/22 rosuvastatin 20 mg tablet 20 mg PO DAILY hyperlipidemia 09/01/22 BD Ultra-Fine Rose Mary Pen Needle 32 gauge x (pen needle, diabetic) #100 ea 12/19/22 metformin 500 mg tablet,extended release 24 hr 1,000 mg (2 x 500 mg) PO BID diabetes #360 tabs 01/07/23 mirabegron 50 mg tablet,extended release 24 hr (Myrbetriq) 50 mg PO DAILY bladder #30 tabs 02/02/23 venlafaxine 75 mg capsule,extended release 24 hr 75 mg PO BID depression #60 caps 02/02/23 donepezil 5 mg tablet 5 mg PO .COMPLEX tremors 02/25/23 quetiapine 25 mg tablet 12.5 mg PO QHS sleep 02/25/23 venlafaxine 75 mg tablet 75 mg PO BID depression 02/25/23 acetaminophen 325 mg tablet 650 mg (2 x 325 mg) PO Q6H PRN PRN Pain 1-10 Or Fever>100.7 #0 tabs 03/05/23 bisacodyl 10 mg rectal suppository 10 mg [place] DAILY PRN Constipation #0 ea 03/05/23 glucagon 1 mg solution for injection (Glucagon Emergency Kit) 1 mg IM X1 PRN Hypoglycemia #0 ea 03/05/23 insulin glargine-yfgn 100 unit/mL (3 mL) subcutaneous pen 30 unit (0.3 mL) subcut QHS #0 mL 03/05/23 insulin lispro 100 unit/mL subcutaneous pen (Humalog KwikPen (U-100) Insulin) 10 unit subcut TIDAC #0 mL 03/05/23 insulin lispro 100 unit/mL subcutaneous pen (Humalog KwikPen (U-100) Insulin) See Protocol subcut ACHS #0 mL 03/05/23 menthol 0.44 %-zinc oxide 20.6 % topical ointment (Calmoseptine) 1 applic topical BID #0 grams 03/05/23 miconazole nitrate 2 % topical powder (Desenex) 1 applic topical BID #0 grams 03/05/23 Hospital Course Summary of Care Provided Minutes Spent on Discharge: 35 Physical Exam Narrative GENERAL: cooperative HEENT: Atraumatic; normocephalic EYES; Anicteric, Normal Conjunctiva NECK; supple, normal thyroid, RESPIRATORY: Diminished to auscultation CARDIOVASCULAR: Regular S1 S2, GI: soft, normoactive bowel sounds, : No Renal angle tenderness; EXTREMITIES: No clubbing, MUSCULOSKELETAL: no muscle wasting NEURO: Awake; no lateralizing signs. SKIN: No Rash PSYCH; Flat affect Weight / BMI Weight Weight: 121.9 kg Body Mass Index (BMI) 36.4 ABG / Lab / Microbiology Data 03/05/23 06:42 03/05/23 06:42 Laboratory: Laboratory Results - last 24 hr 03/04/23 11:15: POC Glucose 305 H 03/04/23 16:32: POC Glucose 317 H 03/04/23 23:26: POC Glucose 267 H 03/05/23 06:42: WBC 8.3, RBC 5.08, Hgb 13.9, Hct 42.7, MCV 84.1, MCH 27.4, MCHC 32.6, RDW Std Deviation 42.1, RDW Coeff of Yoana 13.8, Plt Count 221, MPV 9.3, Immature Gran % (Auto) 0.700, Neut % (Auto) 76.8 H, Lymph % (Auto) 12.1 L, [place] % (Auto) 7.7, Eos % (Auto) 2.3, Baso % (Auto) 0.4, Absolute Neuts (auto) 6.4, Absolute Lymphs (auto) 1.00, Nucleated RBC % 0, Sodium 137, Potassium 4.6, Chloride 104, Carbon Dioxide 27.0, Anion Gap 6, BUN 22 H, Creatinine 1.08, Estim Creat Clear Calc 67.86, Est GFR (MDRD) Af Amer 86, Est GFR (MDRD) Non-Af 71, BUN/Creatinine Ratio 20.4 H, Glucose 281 H, Calcium 8.8 03/05/23 07:44: POC Glucose 295 H D/C Instructions Discharge Diet: 1800 Calorie Control Diet Discharge Activity: Return to Normal Activity Call your doctor if you observe: Fever of 101 or Higher, Shortness of breath, Fa inting spells and Chest pain Meaningful Use Info Meaningful Use Diagnoses (Choose all that apply): None applicable Discharge Plan Admission Admit Date/Time: 02/25/23 20:16 Attending Provider: Joshua Flowers Primary Care Provider: Roman Gutierrez Consulting Providers: Duran Carlisle; Radha Jiménez; Kenton Oseguera Discharge Orders/Prescriptions Prescriptions: New acetaminophen 325 mg Tablet 650 mg PO Q6H PRN PRN (Reason: Pain 1-10 Or Fever>100.7) Qty: 0 0RF miconazole nitrate [Desenex] 2 % Powder 1 applic topical BID Qty: 0 0RF Protocol: *Topical Application Instructions APPLICATION INSTRUCTIONS: yeasty folds bisacodyl 10 mg Suppository 10 mg [place] DAILY PRN (Reason: Constipation) Qty: 0 0RF Glucagon Emergency Kit (human) 1 mg Recon Soln 1 mg IM X1 PRN (Reason: Hypoglycemia) Qty: 0 0RF insulin lispro [Humalog KwikPen Insulin] 100 unit/mL Insulin Pen See Protocol subcut ACHS Qty: 0 0RF Protocol: 4. Sliding Scale Insulin High-Med Dosing Condition: 150-199 mg/dl = 2 units Condition: 200-259 mg/dl = 4 units Condition: 260-324 mg/dl = 6 units Condition: 325-374 mg/dl = 8 units Condition: 375-409 mg/dl = 10 units Condition: 410-449 mg/dl = 11 units Condition: Greater than 449 call physician Protocol Text: - Use for Total Daily Dose of Insulin 56-80 units - Patient who are insulin resistant or septic HIGH MEDIUM DOSING ALGORITHM insulin lispro [Humalog KwikPen Insulin] 100 unit/mL Insulin Pen 10 unit subcut TIDAC Qty: 0 0RF Protocol: 4. Sliding Scale Insulin High-Med Dosing menthol-zinc oxide [Calmoseptine] 0.44-20.6 % Ointment 1 applic topical BID Qty: 0 0RF Protocol: *Topical Application Instructions APPLICATION INSTRUCTIONS: redness to buttock insulin glargine-yfgn 100 unit/mL (3 mL) Insulin Pen 30 unit subcut QHS Qty: 0 0RF Continued Calcium 600 with Vitamin D3 600 mg-10 mcg (400 unit) tablet,chewable 1 tab PO DAILY carbidopa-levodopa 25-100 mg tablet 1 tab PO TID (DME) FreeStyle Aliya 2 Sensor Kit See Rx Instructions .Route Rx Instructions: As directed (DME) FreeStyle Aliya 2 Sensor Kit See Rx Instructions .Route Rx Instructions: As directed icosapent ethyl [Vascepa] 1 gram capsule 2 g PO BID Hold Instructions: pt refused Patient Comments: not currently taking as of 02/25/23 due to difficult to swallow nitroglycerin 0.4 mg tablet, sublingual 0.4 mg sublingual Q5M PRN (Reason: chest pain) Rx Instructions: do not exceed 3 doses per episode polyethylene glycol 3350 [Miralax] 17 gram/dose powder 4 g PO DAILY PRN (Reason: constipation) pramipexole 0.75 mg tablet 0.75 mg PO QHS rosuvastatin 20 mg tablet 20 mg PO DAILY venlafaxine 75 mg capsule,extended release 24hr 75 mg PO BID Qty: 60 1RF Myrbetriq 50 mg tablet extended release 24 hr 50 mg PO DAILY Qty: 30 1RF quetiapine 25 mg tablet 12.5 mg PO QHS Patient Comments: take 1/2 tablet by mouth at bedtime venlafaxine 75 mg tablet 75 mg PO BID Patient Comments: take 1 tablet by mouth twice a day donepezil 5 mg tablet 5 mg PO .COMPLEX Patient Comments: take 1 tablet by mouth EVERY MORNING WITH BREAKFAST Rx Instructions: 5 mg orally daily with breakfast; (DME) pen needle, diabetic [BD Ultra-Fine Rose Mary Pen Needle] 32 gauge x /32 needle See Rx Instructions .ROUTE .MEDSUPPLY Qty: 100 6RF Rx Instructions: tid metformin 500 mg tablet extended release 24 hr 1,000 mg PO BID Qty: 360 1RF Discontinued Humalog Mix 50-50 KwikPen 100 unit/mL (50-50) insulin pen 33 unit subcut .COMPLEX Patient Comments: not sure if it's 33 or 34 with breakfast Rx Instructions: 33 units subcutaneously 33 units with breakfast; 22 unit with lunch; 28 units with dinner Referrals / Follow Up: Roman Gutierrez MD [Primary Care Provider] - Disposition Disposition (needs filled in before D/C Order can be placed): [facility] Charges/Coding Visit Charges Inpatient E&M: 58553 Disch Hosp >30min
[2023-03-05 11:56] LABS: Bedside Glucose 262 mg/dL (74-106)
--- NOTE | 2023-03-05 12:04 | PHA.DC.MR.R ---
Pharmacy [place] Med Reconciliation Pharmacy Service has performed discharge medication reconciliation for this patient prior to transfer to TCU The patient's discharge medication list was reviewed for discrepancies and discrepancies were resolved. Medications at Discharge Home Medications calcium carbonate 600 mg-vitamin D3 10 mcg (400 unit) chewable tablet (Calcium 600 with Vitamin D3) 1 tab PO DAILY viatmin 09/01/22 carbidopa 25 mg-levodopa 100 mg tablet 1 tab PO TID parkinson 09/01/22 flash glucose sensor (FreeStyle Aliya 2 Sensor kit) 09/01/22 flash glucose sensor (FreeStyle Aliya 2 Sensor kit) 09/01/22 icosapent ethyl 1 gram capsule (Vascepa) 2 g PO BID hyperlipidemia 09/01/22 nitroglycerin 0.4 mg sublingual tablet 0.4 mg sublingual Q5M PRN chest pain 09/01/22 polyethylene glycol 3350 17 gram/dose oral powder (Miralax) 4 g PO DAILY PRN constipation 09/01/22 pramipexole 0.75 mg tablet 0.75 mg PO QHS restless legs 09/01/22 rosuvastatin 20 mg tablet 20 mg PO DAILY hyperlipidemia 09/01/22 BD Ultra-Fine Rose Mary Pen Needle 32 gauge x 5/32 (pen needle, diabetic) #100 ea 12/19/22 metformin 500 mg tablet,extended release 24 hr 1,000 mg (2 x 500 mg) PO BID diabetes #360 tabs 01/07/23 mirabegron 50 mg tablet,extended release 24 hr (Myrbetriq) 50 mg PO DAILY bladder #30 tabs 02/02/23 venlafaxine 75 mg capsule,extended release 24 hr 75 mg PO BID depression #60 caps 02/02/23 donepezil 5 mg tablet 5 mg PO .COMPLEX tremors 02/25/23 quetiapine 25 mg tablet 12.5 mg PO QHS sleep 02/25/23 venlafaxine 75 mg tablet 75 mg PO BID depression 02/25/23 acetaminophen 325 mg tablet 650 mg (2 x 325 mg) PO Q6H PRN PRN Pain 1-10 Or Fever>100.7 #0 tabs 03/05/23 bisacodyl 10 mg rectal suppository 10 mg [place] DAILY PRN Constipation #0 ea 03/05/23 glucagon 1 mg solution for injection (Glucagon Emergency Kit) 1 mg IM X1 PRN Hypoglycemia #0 ea 03/05/23 insulin glargine-yfgn 100 unit/mL (3 mL) subcutaneous pen 30 unit (0.3 mL) subcut QHS #0 mL 03/05/23 insulin lispro 100 unit/mL subcutaneous pen (Humalog KwikPen (U-100) Insulin) 10 unit subcut TIDAC #0 mL 03/05/23 insulin lispro 100 unit/mL subcutaneous pen (Humalog KwikPen (U-100) Insulin) See Protocol subcut ACHS #0 mL 03/05/23 menthol 0.44 %-zinc oxide 20.6 % topical ointment (Calmoseptine) 1 applic topical BID #0 grams 03/05/23 miconazole nitrate 2 % topical powder (Desenex) 1 applic topical BID #0 grams 03/05/23
--- NOTE | 2023-03-05 12:14 | CASEMGMT ---
Addendum entered by Radha Uriarte 03/05/23 14:54: Social Work TCU is able to accept pt today. Physician updated and pt is ready for dc at this time. Discharge orders faxed to TCU. Pt updated and VM left for pt's . RN notified. Disposition: TCU, skilled level of care. ARGELIA Berman Original Note: Social Work SW met with pt and updated that precert has been obtained for pt to go to TCU. Bed will be available tonight or tomorrow. Pt is agreeable to dc plan. Physician updated. Plan: TCU, TCU to call SW when bed is available and pt can be transferred. ARGELIA Hernandez
[2023-03-05 14:11] VITALS: BP 140/76; PULSE 77; RESP 16; TEMP 36.6; O2SAT 98
== END 2023-03-05 15:56 | disposition skilled nursing facility (03) ==
LOC: ED 18:44 → MS3 02-26 01:12
PROVIDERS: Family Medicine; Physician Assistant; Student in an Organized Health Care Education/Training Program; Admitting Provider Hospitalist; Emergency Provider Emergency Medicine; PCP Family Medicine; Visit Provider Internal Medicine
DX: G20.A1 Parkinson's disease without dyskinesia, without mention of fluctuations (principal); E11.65 Type 2 diabetes mellitus with hyperglycemia; E11.42 Type 2 diabetes mellitus with diabetic polyneuropathy; Z79.4 Long term (current) use of insulin; R53.1 Weakness; G47.9 Sleep disorder, unspecified; R60.9 Edema, unspecified; R51.9 Headache, unspecified; M25.562 Pain in left knee; E78.5 Hyperlipidemia, unspecified; R26.2 Difficulty in walking, not elsewhere classified; M25.561 Pain in right knee; R53.81 Other malaise; I10 Essential (primary) hypertension; R29.6 Repeated falls; Z79.899 Other long term (current) drug therapy; Z79.84 Long term (current) use of oral hypoglycemic drugs; K59.00 Constipation, unspecified; F41.9 Anxiety disorder, unspecified; F32.A Depression, unspecified; G25.81 Restless legs syndrome; N32.81 Overactive bladder; E66.9 Obesity, unspecified; Z68.36 Body mass index [BMI] 36.0-36.9, adult; G47.00 Insomnia, unspecified
CPT/HCPCS: 36415; 80048; 82962; 85025; 85027; 94668; 96372; 97110; 97112; 97116; 97162; 97166; 97530; 97535; 99221; 99283; A4216; G0378

== ENCOUNTER 2023-03-05 16:08 | Inpatient (IN) | payer MEDICARE, SELFPAY ==
[2023-03-05 16:33] VITALS: BP 150/86; PULSE 77; RESP 16; TEMP 36.3; O2SAT 97; BMI 36.6; BMI 81.9
[2023-03-05 17:34] LABS: Bedside Glucose 280 mg/dL (74-106)
[2023-03-05] MEDS: Insulin Lispro 100 UNIT/ML INSULN.PEN 10 UNIT SC (18:15)
[2023-03-05] MEDS: Carbidopa/Levodopa 25/100 Tablet PO (18:15)
[2023-03-05] MEDS: metFORMIN (XR) 500 MG Tablet 1000 MG PO (18:16)
--- NOTE | 2023-03-05 19:41 | NURSING ---
Aliya noted to MJ. Patient request to use this while here. Request placed to Dr. Woodall.
--- NOTE | 2023-03-05 20:01 | PCM.HP.STD ---
HPI - General General Date of Admission: 03/05/23 Date of Service: 03/05/23 Chief Complaint: Here for rehabilitation. HPI Narrative 02/25/2023 DEEPA ABRAHAM, is a 72 Male who presents to [facility] ED with weakness. History Parkinson disease, unable to walk x 2 months. Bilateral knee pain, unable to stand, uses walker, shuffling gait. Headache, insomnia, uses walker all the time due to instability. Neurologist prescribed Quetiapine for sleep, fell 3 times in 1 week. Unable to care for at home. 02/25/2023 Admit to Hospital. PT/OT for debility. Lantus 30 units qhs, Humalog 10 units tidac, SSI for Diabetes Mellitus II, A1c 8.4%. Senna, Miralax, Dulcolax suppository for constipation. Quetiapine 25mg qhs for insomnia. 02/26/2023 Weakness, Lethargy. PT/OT for TCU. 02/27/2023 Pre-CERT for TCU. 02/28/2023 A[address] placement. 03/05/2023 Admit to TCU with debility, here for rehabilitation, strengthening, prior to discharge home with . Resident planning on trip to [place], [place] to visit his daughter. 4 days, 3 nights. [facility] Medical History (Updated 03/05/23 @ 20:[address] Abdiel Luis MD) Dependent edema Diabetes Hyperlipemia Hyperpigmentation Inactivity Left leg swelling Leg edema, left Leg edema, right Lipodermatosclerosis Parkinson disease Peripheral neuropathy Right leg swelling Venous hypertension, chronic, with ulcer and inflammation Home Medications calcium carbonate 600 mg-vitamin D3 10 mcg (400 unit) chewable tablet (Calcium 600 with Vitamin D3) 1 tab PO DAILY viatmin 09/01/22 [History Last Taken Unknown] carbidopa 25 mg-levodopa 100 mg tablet 1 tab PO TID parkinson 09/01/22 [History Last Taken 03/05/23] flash glucose sensor (FreeStyle Aliya 2 Sensor kit) 09/01/22 [History Last Taken Unknown] flash glucose sensor (FreeStyle Aliya 2 Sensor kit) 09/01/22 [History Last Taken Unknown] icosapent ethyl 1 gram capsule (Vascepa) 2 g PO BID hyperlipidemia 09/01/22 [History Last Taken Unknown] nitroglycerin 0.4 mg sublingual tablet 0.4 mg sublingual Q5M PRN chest pain 09/01/22 [History Last Taken Unknown] polyethylene glycol 3350 17 gram/dose oral powder (Miralax) 4 g PO DAILY PRN constipation 09/01/22 [History Last Taken Unknown] pramipexole 0.75 mg tablet 0.75 mg PO QHS restless legs 09/01/22 [History Last Taken 03/04/23] rosuvastatin 20 mg tablet 20 mg PO DAILY hyperlipidemia 09/01/22 [History Last Taken 03/04/23] BD Ultra-Fine Rose Mary Pen Needle 32 gauge x 5/32 (pen needle, diabetic) #100 ea 12/19/22 [Rx Last Taken Unknown] metformin 500 mg tablet,extended release 24 hr 1,000 mg (2 x 500 mg) PO BID diabetes #360 tabs 01/07/23 [Rx Last Taken Unknown] mirabegron 50 mg tablet,extended release 24 hr (Myrbetriq) 50 mg PO DAILY bladder #30 tabs 02/02/23 [Rx Last Taken 03/05/23] venlafaxine 75 mg capsule,extended release 24 hr 75 mg PO BID depression #60 caps 02/02/23 [Rx Last Taken Unknown] donepezil 5 mg tablet 5 mg PO .COMPLEX tremors 02/25/23 [History Last Taken 03/05/23] quetiapine 25 mg tablet 12.5 mg PO QHS sleep 02/25/23 [History Last Taken 03/04/23] venlafaxine 75 mg tablet 75 mg PO BID depression 02/25/23 [History Last Taken Unknown] acetaminophen 325 mg tablet 650 mg (2 x 325 mg) PO Q6H PRN PRN Pain 1-10 Or Fever>100.7 #0 tabs 03/05/23 [Rx Last Taken 02/26/23] bisacodyl 10 mg rectal suppository 10 mg LA DAILY PRN Constipation #0 ea 03/05/23 [Rx Last Taken Unknown] glucagon 1 mg solution for injection (Glucagon Emergency Kit) 1 mg IM X1 PRN Hypoglycemia #0 ea 03/05/23 [Rx Last Taken Unknown] insulin glargine-yfgn 100 unit/mL (3 mL) subcutaneous pen 30 unit (0.3 mL) subcut QHS blood sugar #0 mL 03/05/23 [Rx Last Taken 03/04/23] insulin lispro 100 unit/mL subcutaneous pen (Humalog KwikPen (U-100) Insulin) 10 unit subcut TIDAC blood sugars #0 mL 03/05/23 [Rx Last Taken 03/05/23] insulin lispro 100 unit/mL subcutaneous pen (Humalog KwikPen (U-100) Insulin) See Protocol subcut ACHS blood sugars #0 mL 03/05/23 [Rx Last Taken Unknown] menthol 0.44 %-zinc oxide 20.6 % topical ointment (Calmoseptine) 1 applic topical BID redness/breakdown #0 grams 03/05/23 [Rx Last Taken 03/05/23] miconazole nitrate 2 % topical powder (Desenex) 1 applic topical BID yeast in folds #0 grams 03/05/23 [Rx Last Taken 03/05/23] Allergy/AdvReac Type Severity Reaction Status Date / Time sulfamethoxazole Allergy Rash Verified 02/25/23 16:21 [From Bactrim] trimethoprim [From Bactrim] Allergy Rash Verified 02/25/23 16:21 Surgical History History of right inguinal hernia repair History of total right knee replacement Social History (Updated 03/05/23 @ 20:[address] Abdiel Luis MD) household members: spouse housing: house Smoking Status: Never smoker alcohol intake: never substance use type: does not use ROS Constitutional Constitutional: Denies chills, fever(s) or weight gain ENT HEENT: Denies headache(s), nasal congestion or nasal discharge Cardiovascular Cardiovascular: Denies chest pain or palpitations Respiratory/Chest Respiratory/Chest: Denies cough, excessive phlegm production or shortness of breath with exertion Gastrointestinal Gastrointestinal: Denies abdominal pain, nausea or vomiting Genitourinary Genitourinary: Denies dysuria Musculoskeletal Musculoskeletal: Denies joint pain or joint swelling Integumentary Integumentary: Denies rash or wounds Neurologic Neurologic: Denies focal weakness, numbness or tingling Psychiatric Psychiatric: Denies anxiety, auditory hallucinations, depression, homicidal ideation or suicidal ideation Vital Signs Vital Signs Vital Signs: 03/05/23 16:33 03/05/23 16:33 Temperature 97.4 F L Temperature Source Temporal Pulse Rate 77 Pulse Rhythm Regular Pulse Strength Normal (2+) Respiratory Rate 16 Respiratory Effort Normal Non-Labored Respiratory Depth Normal Respiratory Pattern Normal Blood Pressure 150/86 H Blood Pressure Mean 107 Blood Pressure Source Monitor Blood Pressure Position Sitting Blood Pressure Location Left Forearm Pulse Ox 97 Oxygen Delivery Method Room Air Room Air Weight Weight: 122.651 kg Body Mass Index (BMI) 36.6 Physical Exam Const alert General Appearance: cooperative HEENT normocephalic Eyes PERRL and EOMs intact bilaterally Neck supple, no JVD and no carotid bruits Resp normal respiratory effort, normal air movement and clear to auscultation bilaterally Cardio regular rate and regular rhythm GI normal to inspection, nondistended, normoactive bowel sounds, non-tender and non-distended Extremity normal capillary refill General Extremity: Negative for edema Skin no rashes or lesions noted General Skin Exam: no breakdown Psych affect normal Appearance: appropriate Results Lab / Micro Data Labs: Laboratory Results - last 24 hr 03/05/23 17:16: POC Glucose 280 H Assessment & Plan Assessment/Plan (1) Debility: (2) Falls: (3) Weakness of both legs: (4) Parkinson's disease: (5) Hyperlipemia: (6) Diabetes: QUALIFIERS: Diabetes mellitus complication status: with hyperglycemia 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 Debility - PT/OT. Pain - Tylenol 1000mg q6 prn pain (1-10). Bowel - senna/colace 1 tablet bid, Magnesium citrate 300ml daily prn. Adult immunization - Administer pneumonia vaccine, covid vaccine, flu vaccine as appropriate. DVT prophylaxis - Hold, monitor. Hyperlipidemia - Atorvastatin 40mg daily. Parkinson Disease - Increase Sinemet 25/100mg 2 tablets tidac, continue Mirapex 0.75mg qhs. Parkinson Disease Dementia - Donepezil 5mg daily. Diabetes Mellitus II - Metformin 1000mg bidcm, Glargine 30 units qhs, Humalog 10 units tidac. Skin irritation - Calmoseptine topical bid. Tinea Corporis - Miconazole topical bid. Insomnia - Seroquel 12.5mg qhs, stable chronic fci use, GDR not recommended. 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 Overactive bladder - Gemtasa 75mg daily.
[2023-03-05 21:23] LABS: Bedside Glucose 360 mg/dL (74-106)
[2023-03-05] MEDS: Insulin Glargine-YFGN 100 UNIT/ML Pen 30 UNIT SC (21:58)
[2023-03-05] MEDS: Menthol/Lanolin/Calamine/Znox 113 GM Tube 1 APPLIC TOPICAL (21:58)
[2023-03-05] MEDS: Venlafaxine HCl 75 MG Tablet PO (21:59)
[2023-03-05] MEDS: Miconazole Nitrate 43 GM Bottle 1 APPLIC TOPICAL (21:59)
[2023-03-05] MEDS: QUEtiapine 25 MG Tablet 12.5 MG PO (21:59)
[2023-03-05] MEDS: Pramipexole Di-HCl 0.5 MG Tablet 0.75 MG PO (22:00)
[2023-03-05] MEDS: Senna/Docusate Sodium 1 Tablet PO (22:01)
[2023-03-06 05:47] LABS: Absolute Neutrophil Count 4.7 X10^3/uL (2.0-7.7); Basophil# 0.04 X10^3/uL; Basophil% 0.6 % (0-1); Eosinophil# 0.18 X10^3/uL; Eosinophils% 2.7 % (0-5); Hematocrit 42.5 % (40-54); Hemoglobin 14.1 g/dL (13.0-16.5); Lymphocyte % 16.7 % (19-41); Mean Corp Hgb Conc 33.2 g/dL (32-36); Mean Corpuscular Hgb 27.9 pg (27.0-32.0); Mean Platelet Vol. 9.3 fl (6.2-12.0); Monocyte# 0.52 X10^3/uL; Monocyte% 7.9 % (0-10); NRBC Flagged by Analyzer 0 % (0-5); Neutrophil # 4.71 X10^3/uL (2.7-7.7); Neutrophil % 71.3 % (47-70); Platelet Count 228 K/mm3 (150-450); RBC Distribution Width CV 13.9 % (11.6-14.6); Red Blood Count 5.06 M/mm3 (4.6-6.2); White Blood Count 6.6 K/mm3 (4.4-11.0)
[2023-03-06] MEDS: Acetaminophen 500 MG Tablet 1000 MG PO ×2 (05:57→22:52)
[2023-03-06] MEDS: Carbidopa/Levodopa 25/100 Tablet PO ×3 (05:59→17:49)
[2023-03-06 06:14] LABS: Anion Gap 6 (5-15); BUN 26 mg/dL (7-18); BUN/Creat Ratio 22.6 RATIO (10-20); Calcium,Total 8.4 mg/dL (8.5-10.1); Chloride 104 mmol/L (98-107); Creatinine, Serum 1.15 mg/dL (0.70-1.30); EST Glomerular Filtration Rate 66 mL/min (>60); Est Glom Filt Rate - Afr Amer 80 mL/min (>60); Estimated Creatinine Clearance 63.73 ml/min; Glucose 301 mg/dL (74-106); Potassium 4.2 mmol/L (3.5-5.1); Sodium Level 136 mmol/L (136-145)
[2023-03-06 06:48] LABS: Bedside Glucose 269 mg/dL (74-106)
[2023-03-06] MEDS: Miconazole Nitrate 43 GM Bottle 1 APPLIC TOPICAL ×2 (08:13→22:45)
[2023-03-06] MEDS: Atorvastatin Calcium 40 MG Tablet PO (08:14)
[2023-03-06] MEDS: Venlafaxine HCl 75 MG Tablet PO ×2 (08:14→22:44)
[2023-03-06] MEDS: Menthol/Lanolin/Calamine/Znox 113 GM Tube 1 APPLIC TOPICAL ×2 (08:14→22:45)
[2023-03-06] MEDS: Vibegron 75 MG TABLET PO (08:14)
[2023-03-06] MEDS: Donepezil HCl 5 MG Tablet PO (08:14)
[2023-03-06] MEDS: metFORMIN (XR) 500 MG Tablet 1000 MG PO ×2 (08:14→17:49)
[2023-03-06 11:25] LABS: Bedside Glucose 349 mg/dL (74-106)
[2023-03-06] MEDS: Tuberculin,Purif.prot.deriv. 50 TU/ML Vial 0.100000000000000006 ML ID (12:07)
[2023-03-06] MEDS: Insulin Lispro 100 UNIT/ML INSULN.PEN 13 UNIT SC ×2 (12:07→17:48)
--- NOTE | 2023-03-06 13:17 | CASEMGMT ---
Addendum entered by Mireya Fink 03/06/23 13:49: Went to review DNR paper with patient, discussed chest compressions and intubation, he confirms he would like both done if needed. Confirms full code. Original Note: Social Work Met with patient to complete initial assessment. Introduced self and role. Verified/updated contacts. Pt wishes to be DNR-CCA WITH intubation. Nursing notified. Educated to [facility] insurance with NRD 03/10 and continued stay is not guaranteed with each review. Pt's goal is to return home with at [facility]. SW will continue to follow for DC planning. Nancy Joyce, AURA OUTREACH COUNSELOR
--- NOTE | 2023-03-06 13:18 | NURSING ---
Updated patient that staff member tested covid positive. He did not want family udpated.
[2023-03-06 14:14] VITALS: BP 135/74; PULSE 79; RESP 16; TEMP 36.7; O2SAT 96
--- NOTE | 2023-03-06 15:44 | PHA.CONS_ITS ---
TCU RX Drug Regimen Review Subjective/Objective Subjective/Objective: Subjective: 72 year old male with below past medical history hospitalized for falls, weakness of legs, probable progression of Parkinson Disease, admitted to TCU with debility, here for rehabilitation, strengthening, prior to discharge home with . Objective: Allergies sulfamethoxazole [From Bactrim] Allergy (Verified 02/25/23 16:21) Rash trimethoprim [From Bactrim] Allergy (Verified 02/25/23 16:21) Rash Current Medications Generic Name Dose Route Start Last Admin Trade Name Freq PRN Reason Stop Dose Admin Acetaminophen 1,000 mg 03/05/23 20:21 03/06/23 05:57 Acetaminophen 500 Mg Tablet PO 1,000 mg Q6H PRN PRN Administration Pain Score 1-10 Atorvastatin Calcium 40 mg 03/06/23 10:00 03/06/23 08:14 Atorvastatin Calcium 40 Mg Tablet PO 40 mg DAILY MALISSA Administration Calamine/Phenol 1 applic 03/05/23 22:00 03/06/23 08:14 Menthol/Lanolin/Calamine/Znox 113 Gm Tube TOPICAL 1 applic BID [facility] Administration Protocol Carbidopa/Levodopa 2 tablet 03/06/23 06:45 03/06/23 12:06 Carbidopa/Levodopa 25/100 Tablet PO 2 tablet TIDAC MALISSA Administration Donepezil HCl 5 mg 03/06/23 08:00 03/06/23 08:14 Donepezil Hcl 5 Mg Tablet PO 5 mg DAILYCM [facility] Administration Insulin Glargine 40 unit 03/06/23 22:00 Insulin Glargine-Yfgn 100 Unit/Ml Pen SC QHS MALISSA Insulin Human Lispro 13 unit 03/06/23 11:45 03/06/23 12:07 Insulin Lispro 100 Unit/Ml Insuln.Pen SC 13 unit TIDAC [facility] Administration Magnesium Citrate 300 ml 03/05/23 20:20 Magnesium Citrate 300 Ml PO DAILY PRN Constipation Metformin HCl 1,000 mg 03/05/23 17:00 03/06/23 08:14 Metformin (Xr) 500 Mg Tablet PO 1,000 mg BIDCM [facility] Administration Miconazole Nitrate 1 applic 03/05/23 22:00 03/06/23 08:13 Miconazole Nitrate 43 Gm Bottle TOPICAL 1 applic BID MALISSA Administration Pramipexole Dihydrochloride 0.75 mg 03/05/23 22:00 03/05/23 22:00 Pramipexole Di-Hcl 0.5 Mg Tablet PO 0.75 mg QHS MALISSA Administration Quetiapine Fumarate 12.5 mg 03/05/23 22:00 03/05/23 21:59 Quetiapine 25 Mg Tablet PO 12.5 mg QHS MALISSA Administration Senna/Docusate Sodium 1 tablet 03/05/23 22:00 03/06/23 08:18 Senna/Docusate Sodium 1 Tablet PO Not Given BID MALISSA Sodium Chloride 10 - 40 ml 03/05/23 17:07 0.9% Saline Lock 10 Ml Syringe IV UD PRN SALINE FLUSH Tuberculin PPD 0.1 ml 03/13/23 10:00 Tuberculin,Purif.Prot.Deriv. 50 Tu/Ml Vial ID 03/13/23 10:01 X1 ONE Venlafaxine HCl 75 mg 03/05/23 22:00 03/06/23 08:14 Venlafaxine Hcl 75 Mg Tablet PO 75 mg BID MALISSA Administration Problem List (Updated 03/05/23 @ 20:[address] Abdiel Luis MD) Parkinson's disease dementia (Acute) Insomnia (Acute) Depression (Acute) Overactive bladder (Acute) Hyperlipemia (Acute) Weakness of both legs (Acute) Falls (Acute) Debility (Acute) Parkinson's disease (Acute) Diabetes (Chronic) Vital Signs Temp Pulse Resp BP Pulse Ox O2 Del Method 98.1 F 79 16 135/74 H 96 Room Air 03/06/23 14:14 03/06/23 14:14 03/06/23 14:14 03/06/23 14:14 03/06/23 14:14 03/06/23 14:14 Oxygen Delivery Method Room Air Weight: 122.651 kg Body Mass Index (BMI) 36.6 Sodium 136 mmol/L (136-145) 03/06/23 05:13 Potassium 4.2 mmol/L (3.5-5.1) 03/06/23 05:13 Chloride 104 mmol/L (98-107) 03/06/23 05:13 Carbon Dioxide 26.0 mmol/L (21.0-32.0) 03/06/23 05:13 Anion Gap 6 (5-15) 03/06/23 05:13 BUN 26 mg/dL (7-18) H 03/06/23 05:13 Creatinine 1.15 mg/dL (0.70-1.30) 03/06/23 05:13 Est GFR (MDRD) Af Amer 80 mL/min (>60) 03/06/23 05:13 Est GFR (MDRD) Non-Af 66 mL/min (>60) 03/06/23 05:13 BUN/Creatinine Ratio 22.6 RATIO (10-20) H 03/06/23 05:13 Glucose 301 mg/dL (74-106) H 03/06/23 05:13 Assessment/Plan: 1. Pain: acetaminophen 1000 mg PO Q6H PRN pain. The patient has required 1 dose of PRN acetaminophen so far this admission. Please continue to monitor pain levels, PRN medication usage and LFTs (AST/ALT = 8/<6 U/L on 01/05/23). 2. Bowel: senna/docusate 1 tablet PO BID, magnesium citrate 300 mL PO daily PRN constipation. The patient has not required any PRN magnesium citrate so far this admission. The patient's last bowel movement was on 03/05/23. Please continue to monitor for diarrhea, constipation, PRN medication usage, and for bowel movements.3 3. Hyperlipidemia: atorvastatin 40 mg PO daily. Please continue to monitor lipid levels (no recent lipid levels documented), as well as LFTS (AST/ALT = 8/<6 U/L on 01/05/23). As the patient does not have any recent lipid levels documented please consider ordering repeat lipid levels. 4. Diabetes Mellitus II: metformin XR 1000 mg PO BID with meals, insulin glargine 40 units QHS, insulin lispro 13 units TID before meals. Please continue to monitor blood glucose readings (recent range = 262-360 mg/dL), hemoglobin A1C (A1C = 8.4% on 02/02/23), renal function (serum creatinine = 1.15 mg/dL with creatinine clearance ~ 64 mL/min and GFR ~ 66 mL/min), vitamin B12 levels (no recent vitamin B12 levels documented), and for s/s of hyper/hypo glycemia. The patients blood sugars have been consistently elevated over the past several days, please consider increasing the patients insulin glargine to either 50 units QHS or 25 units BID, as well as increasing the lispro to 15 units TID before meals if BG remains high after previous insulin adjustment. Also as the patient remains on metformin please consider ordering vitamin B12 levels. 5. Parkinson Disease/Parkinson Disease dementia: carbidopa/levodopa 25/100 mg 2 tablets PO TID before meals, pramipexole 0.75 mg PO QHS, donepezil 5 mg PO daily with a meal. Please continue to monitor for s/s of parkinsonian symptoms, for dyskinesias, for s/s of orthostasis, for constipation, nausea, depression, for diarrhea, drowsiness and for insomnia. 6. Overactive bladder: vibegron 75 mg PO daily. Please continue to monitor for bladder spasms, and for nausea. 7. Skin irritation/tinea corporis: calmoseptine 1 application topically BID, miconazole nitrate powder 1 application topically BID. Please continue to monitor for resolution of tinea corporis and for skin irritation/skin integrity. Assessment/Plan for indications treated with psychotropic medications: 1. Insomnia: quetiapine 12.5 mg PO QHS. Please see provider note regarding stable chronic long-term use GDR not recommended. Please continue to monitor for insomnia, sedation, for s/s of anticholinergic side effect such as dry mouth, dry eyes, urinary retention, constipation and delirium, as well as for hyperglycemia, orthostasis, agitation and dizziness. 2. Depression: venlafaxine 75 mg PO BID. Please see provider not regarding stable chronic long-term use GDR not recommended. Please continue to monitor for s/s of depression, sodium levels (Na = 136 mmol/L on 03/06/23), LFTs (AST/ALT = 8/<6 U/L on 01/05/23), for s/s of serotonin syndrome, and for SI. Medical chart and medication regimen reviewed. The following medication irregularities or issues were identified: 1. Hyperlipidemia: atorvastatin 40 mg PO daily. As the patient does not have any recent lipid levels documented please consider ordering repeat lipid levels. 2. Diabetes Mellitus II: metformin XR 1000 mg PO BID with meals, insulin glargine 40 units QHS, insulin lispro 13 units TID before meals. The patients blood sugars have been consistently elevated over the past several days, please consider increasing the patients insulin glargine to either 50 units QHS or 25 units BID, as well as increasing the lispro to 15 units TID before meals if BG remains high after previous insulin adjustment. Also as the patient remains on metformin please consider ordering vitamin B12 levels. Date Date of Note:: 03/06/23
[2023-03-06 16:24] LABS: Bedside Glucose 292 mg/dL (74-106)
[2023-03-06 22:25] LABS: Bedside Glucose 270 mg/dL (74-106)
[2023-03-06] MEDS: Pramipexole Di-HCl 0.5 MG Tablet 0.75 MG PO (22:43)
[2023-03-06] MEDS: QUEtiapine 25 MG Tablet 12.5 MG PO (22:44)
[2023-03-06] MEDS: Insulin Glargine-YFGN 100 UNIT/ML Pen 50 UNIT SC (22:47)
[2023-03-07] MEDS: Acetaminophen 500 MG Tablet 1000 MG PO ×2 (06:15→23:36)
[2023-03-07] MEDS: Carbidopa/Levodopa 25/100 Tablet PO ×3 (06:16→17:46)
[2023-03-07 06:45] LABS: Bedside Glucose 170 mg/dL (74-106)
[2023-03-07] MEDS: Insulin Lispro 100 UNIT/ML INSULN.PEN 15 UNIT SC ×3 (07:54→17:46)
[2023-03-07] MEDS: Donepezil HCl 5 MG Tablet PO (07:56)
[2023-03-07] MEDS: Venlafaxine HCl 75 MG Tablet PO ×2 (07:57→22:30)
[2023-03-07] MEDS: metFORMIN (XR) 500 MG Tablet 1000 MG PO ×2 (07:57→17:47)
[2023-03-07 07:58] LABS: Cholesterol 129 mg/dL (200); High Density Lipoprotein 32 mg/dL; Triglycerides 125 mg/dL; Very Low Density Lipoprotein 25 mg/dL (5-40)
[2023-03-07] MEDS: Vibegron 75 MG TABLET PO (07:58)
[2023-03-07] MEDS: Miconazole Nitrate 43 GM Bottle 1 APPLIC TOPICAL ×2 (08:00→22:36)
[2023-03-07] MEDS: Menthol/Lanolin/Calamine/Znox 113 GM Tube 1 APPLIC TOPICAL ×2 (08:00→22:36)
[2023-03-07 12:12] LABS: Bedside Glucose 335 mg/dL (74-106)
[2023-03-07 14:27] VITALS: BP 133/72; PULSE 74; RESP 16; TEMP 36.4; O2SAT 92
[2023-03-07 16:26] LABS: Bedside Glucose 218 mg/dL (74-106)
[2023-03-07 21:53] LABS: Bedside Glucose 229 mg/dL (74-106)
[2023-03-07 22:00] VITALS: PULSE 78; RESP 18; O2SAT 95
[2023-03-07] MEDS: Insulin Glargine-YFGN 100 UNIT/ML Pen 50 UNIT SC (22:29)
[2023-03-07] MEDS: QUEtiapine 25 MG Tablet 12.5 MG PO (22:29)
[2023-03-07] MEDS: Atorvastatin Calcium 40 MG Tablet PO (22:30)
[2023-03-07] MEDS: Pramipexole Di-HCl 0.5 MG Tablet 0.75 MG PO (22:30)
[2023-03-08] MEDS: Carbidopa/Levodopa 25/100 Tablet PO ×3 (06:04→16:48)
[2023-03-08 06:42] LABS: Bedside Glucose 183 mg/dL (74-106)
[2023-03-08] MEDS: Venlafaxine HCl 75 MG Tablet PO ×2 (08:12→21:47)
[2023-03-08] MEDS: Vibegron 75 MG TABLET PO (08:12)
[2023-03-08] MEDS: Donepezil HCl 5 MG Tablet PO (08:12)
[2023-03-08] MEDS: metFORMIN (XR) 500 MG Tablet 1000 MG PO ×2 (08:13→16:48)
[2023-03-08] MEDS: Insulin Lispro 100 UNIT/ML INSULN.PEN 15 UNIT SC ×3 (08:13→16:48)
[2023-03-08] MEDS: Miconazole Nitrate 43 GM Bottle 1 APPLIC TOPICAL ×2 (08:17→21:54)
[2023-03-08] MEDS: Menthol/Lanolin/Calamine/Znox 113 GM Tube 1 APPLIC TOPICAL ×2 (08:21→21:54)
[2023-03-08 11:36] LABS: Bedside Glucose 244 mg/dL (74-106)
[2023-03-08 16:00] VITALS: BP 134/61; PULSE 84; RESP 16; TEMP 36.5; O2SAT 91
[2023-03-08 17:10] LABS: Bedside Glucose 223 mg/dL (74-106)
[2023-03-08 21:33] LABS: Bedside Glucose 237 mg/dL (74-106)
[2023-03-08] MEDS: Pramipexole Di-HCl 0.5 MG Tablet 0.75 MG PO (21:47)
[2023-03-08] MEDS: Atorvastatin Calcium 40 MG Tablet PO (21:47)
[2023-03-08] MEDS: QUEtiapine 25 MG Tablet 12.5 MG PO (21:47)
[2023-03-08] MEDS: Insulin Glargine-YFGN 100 UNIT/ML Pen 50 UNIT SC (21:47)
[2023-03-08] MEDS: Acetaminophen 500 MG Tablet 1000 MG PO (23:09)
[2023-03-09] MEDS: Carbidopa/Levodopa 25/100 Tablet PO ×3 (06:00→18:01)
[2023-03-09 06:24] LABS: Bedside Glucose 164 mg/dL (74-106)
[2023-03-09] MEDS: Acetaminophen 500 MG Tablet 1000 MG PO ×2 (08:10→22:00)
[2023-03-09] MEDS: Donepezil HCl 5 MG Tablet PO (08:11)
[2023-03-09] MEDS: Insulin Lispro 100 UNIT/ML INSULN.PEN 15 UNIT SC ×3 (08:11→18:00)
[2023-03-09] MEDS: Venlafaxine HCl 75 MG Tablet PO ×2 (08:12→21:59)
[2023-03-09] MEDS: metFORMIN (XR) 500 MG Tablet 1000 MG PO ×2 (08:12→18:01)
[2023-03-09] MEDS: Vibegron 75 MG TABLET PO (08:12)
[2023-03-09] MEDS: Menthol/Lanolin/Calamine/Znox 113 GM Tube 1 APPLIC TOPICAL ×2 (08:17→21:58)
[2023-03-09] MEDS: Miconazole Nitrate 43 GM Bottle 1 APPLIC TOPICAL ×2 (08:18→21:58)
[2023-03-09 09:36] LABS: Vitamin B12 246 pg/mL (211-911)
[2023-03-09 11:25] LABS: Bedside Glucose 245 mg/dL (74-106)
--- NOTE | 2023-03-09 12:55 | NURSING ---
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 His has brought him his puzzle board so he can do his puzzles along w/his legos. Haresh is very activities in his own activities in his room. He has his smartphone, word puzzles and other independent games he will do. He welcomes visits from the drafting teacher when available and for the most part will do his own activities. Staff will continue to remind him of daily activities and respect his right to say no.
--- NOTE | 2023-03-09 14:32 | NURSING ---
Offered Covid vaccine, VIS provided. Patient refuses at this time.
[2023-03-09 15:52] VITALS: BP 148/67; PULSE 82; RESP 18; TEMP 36.4; O2SAT 98
[2023-03-09 16:23] LABS: Bedside Glucose 274 mg/dL (74-106)
--- NOTE | 2023-03-09 19:50 | NURSING ---
Patient c/o 6/10 sciatic pain to left hip and requesting something more for pain. Dr. Luis orders scheduled Tylenol, PRN Tramadol,a nd routine gabapentin. Patient made aware.
[2023-03-09] MEDS: Insulin Glargine-YFGN 100 UNIT/ML Pen 50 UNIT SC (21:54)
[2023-03-09] MEDS: traMADol 50 MG Tablet PO (21:57)
[2023-03-09] MEDS: QUEtiapine 25 MG Tablet 12.5 MG PO (21:58)
[2023-03-09] MEDS: Atorvastatin Calcium 40 MG Tablet PO (21:59)
[2023-03-09] MEDS: Pramipexole Di-HCl 0.5 MG Tablet 0.75 MG PO (21:59)
[2023-03-09 23:00] VITALS: RESP 17
[2023-03-10 00:21] LABS: Bedside Glucose 163 mg/dL (74-106)
[2023-03-10] MEDS: Carbidopa/Levodopa 25/100 Tablet PO ×3 (05:51→17:29)
[2023-03-10] MEDS: Acetaminophen 500 MG Tablet 1000 MG PO ×3 (05:51→21:26)
[2023-03-10 06:09] LABS: Bedside Glucose 128 mg/dL (74-106)
[2023-03-10 06:33] VITALS: RESP 16
[2023-03-10] MEDS: metFORMIN (XR) 500 MG Tablet 1000 MG PO ×2 (08:06→17:33)
[2023-03-10] MEDS: Donepezil HCl 5 MG Tablet PO (08:06)
[2023-03-10] MEDS: traMADol 50 MG Tablet PO (08:06)
[2023-03-10] MEDS: Venlafaxine HCl 75 MG Tablet PO ×2 (08:07→21:28)
[2023-03-10] MEDS: Miconazole Nitrate 43 GM Bottle 1 APPLIC TOPICAL ×2 (08:07→21:33)
[2023-03-10] MEDS: Gabapentin 100 MG Capsule PO ×2 (08:07→17:38)
[2023-03-10] MEDS: Vibegron 75 MG TABLET PO (08:07)
[2023-03-10] MEDS: Insulin Lispro 100 UNIT/ML INSULN.PEN 15 UNIT SC ×3 (08:07→17:29)
[2023-03-10] MEDS: Menthol/Lanolin/Calamine/Znox 113 GM Tube 1 APPLIC TOPICAL ×2 (08:08→21:33)
[2023-03-10 09:45] VITALS: BMI 36.9
[2023-03-10 11:11] LABS: Bedside Glucose 193 mg/dL (74-106)
[2023-03-10 13:55] VITALS: BP 143/83; PULSE 81; RESP 18; TEMP 36.3; O2SAT 93
[2023-03-10 17:07] LABS: Bedside Glucose 149 mg/dL (74-106)
--- NOTE | 2023-03-10 21:23 | NURSING ---
Patient's HS blood sugar 157. Lantus 50U administered. Patient given snack. Will continue to monitor.
[2023-03-10] MEDS: Pramipexole Di-HCl 0.5 MG Tablet 0.75 MG PO (21:26)
[2023-03-10] MEDS: QUEtiapine 25 MG Tablet 12.5 MG PO (21:27)
[2023-03-10] MEDS: Insulin Glargine-YFGN 100 UNIT/ML Pen 50 UNIT SC (21:27)
[2023-03-10] MEDS: Atorvastatin Calcium 40 MG Tablet PO (21:27)
[2023-03-10 21:51] LABS: Bedside Glucose 157 mg/dL (74-106)
[2023-03-11] MEDS: traMADol 50 MG Tablet PO ×3 (04:15→22:39)
[2023-03-11 06:40] LABS: Bedside Glucose 145 mg/dL (74-106)
[2023-03-11] MEDS: Acetaminophen 500 MG Tablet 1000 MG PO ×3 (06:49→22:43)
[2023-03-11] MEDS: Carbidopa/Levodopa 25/100 Tablet PO ×3 (06:49→17:21)
[2023-03-11] MEDS: Insulin Lispro 100 UNIT/ML INSULN.PEN 15 UNIT SC ×3 (08:02→17:53)
[2023-03-11] MEDS: metFORMIN (XR) 500 MG Tablet 1000 MG PO ×2 (08:03→17:21)
[2023-03-11] MEDS: Gabapentin 100 MG Capsule PO ×2 (08:03→17:21)
[2023-03-11] MEDS: Venlafaxine HCl 75 MG Tablet PO ×2 (08:03→22:44)
[2023-03-11] MEDS: Menthol/Lanolin/Calamine/Znox 113 GM Tube 1 APPLIC TOPICAL ×2 (08:03→22:48)
[2023-03-11] MEDS: Donepezil HCl 5 MG Tablet PO (08:03)
[2023-03-11] MEDS: Miconazole Nitrate 43 GM Bottle 1 APPLIC TOPICAL ×2 (08:03→22:48)
[2023-03-11] MEDS: Vibegron 75 MG TABLET PO (08:03)
--- NOTE | 2023-03-11 10:07 | CASEMGMT ---
Social Work: BIMS score (01/14) and PHQ-2 (0/2) completed for MDS assessment. ARGELIA Dow
[2023-03-11 11:43] LABS: Bedside Glucose 228 mg/dL (74-106)
--- NOTE | 2023-03-11 13:06 | CASEMGMT ---
Social Work IDT met with patient and for care plan meeting. Discussed patient's progress in PT/OT/ST/SN. Educated to [facility] with NRD 03/10 and continued stay is not guaranteed with each review. SW inquired about DC plans. Pt states plan is to DC home with . Offered therapy training to ensure she can care for pt's needs. agreed and scheduled for 03/12. IDT recommending home with HHC PT/OT/ST. Pt/ agreeable. Pt has not used HHC prior and do not have a preference. SW offered and provided printed list within pt's area, INN w/insurance with quality and resource data via [employer]Port Guide. /pt to provide preferences. Pt has no DME needs. SW requested provide copies of advanced directives. requested to send email this worker. SW provided secure email/contact information. SW will continue to follow for DC planning. Nancy Joyce, AURA DIALLOW
[2023-03-11 15:12] VITALS: BP 127/56; PULSE 79; RESP 16; TEMP 36.3; O2SAT 96
--- NOTE | 2023-03-11 15:45 | CASEMGMT ---
Addendum entered by Nancy Joyce 03/12/23 15:55: [facility] can accept with SOC 03/17. SW updated . Addendum entered by Nancy Joyce 03/12/23 13:59: [facility] nor [facility] could staff referral. SW phoned to update and request other agencies. requested referral to [facility]. SW phoned referral and left VM for [facility]. Original Note: Social Work Insurance issued LCD 03/13, DC 03/14. SW phoned and agreeable to DC. provided preferences for HHC: [facility] or [facility]. SW to place referrals. SW spoke with pt about DC date and pt agreeable. Referrals made via [employer]Port to [facility] and [facility] for PT/OT/ST. Plan: DC home with 03/14, [facility] PT/OT/ST AURA SingerW
[2023-03-11 17:06] LABS: Bedside Glucose 186 mg/dL (74-106)
--- NOTE | 2023-03-11 18:26 | PCM.DC.SUM ---
Providers Date of Admission: 03/05/23 Primary Care Physician: Dr. Roman Gutierrez MD Reason For Visit: DEBILITY Diagnosis Discharge Diagnosis (1) Debility: Status: Acute Code(s): R53.81 - Other malaise (2) Falls: Status: Acute Code(s): W19.XXXA - Unspecified fall, initial encounter (3) Weakness of both legs: Status: Acute Code(s): R29.898 - Other symptoms and signs involving the musculoskeletal system (4) Parkinson's disease: Status: Acute Code(s): G20.A1 - Parkinson's disease without dyskinesia, without mention of fluctuations (5) Hyperlipemia: Status: Acute Code(s): E78.5 - Hyperlipidemia, unspecified (6) Diabetes: Status: Chronic Code(s): E11.9 - Type 2 diabetes mellitus without complications Qualifiers: Diabetes mellitus type: type 2 Diabetes mellitus chcf insulin use: with ocean transportation intermediary use Diabetes mellitus complication status: with hyperglycemia Qualified Code(s): E11.65 - Type 2 diabetes mellitus with hyperglycemia; Z79.4 - 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 of insulin (7) Overactive bladder: Status: Acute Code(s): N32.81 - Overactive bladder (8) Depression: Status: Acute Code(s): F32.A - Depression, unspecified (9) Insomnia: Status: Acute Code(s): G47.00 - Insomnia, unspecified (10) Parkinson's disease dementia: Status: Acute Code(s): G20.A1 - Parkinson's disease without dyskinesia, without mention of fluctuations; F02.80 - Dementia in other diseases classified elsewhere, unspecified severity, without behavioral disturbance, psychotic disturbance, mood disturbance, and anxiety Plan 72 year old male with below past medical history hospitalized for falls, weakness of legs, probable progression of Parkinson Disease, admitted to TCU with debility, here for rehabilitation, strengthening, prior to discharge home with . Debility - PT/OT. Pain - Tylenol 1000mg q6 prn pain (1-10). Bowel - senna/colace 1 tablet bid, Magnesium citrate 300ml daily prn. Adult immunization - Administer pneumonia vaccine, covid vaccine, flu vaccine as appropriate. DVT prophylaxis - Hold, monitor. Hyperlipidemia - Atorvastatin 40mg daily. Parkinson Disease - Increase Sinemet 25/100mg 2 tablets tidac, continue Mirapex 0.75mg qhs. Parkinson Disease Dementia - Donepezil 5mg daily. Diabetes Mellitus II - Metformin 1000mg bidcm, Glargine 30 units qhs, Humalog 10 units tidac. Skin irritation - Calmoseptine topical bid. Tinea Corporis - Miconazole topical bid. Insomnia - Seroquel 12.5mg qhs, stable chronic ocean transportation intermediary use, GDR not recommended. Depression - Venlafaxine 75mg bid, stable chronic chcf use, GDR not recommended. Overactive bladder - Gemtasa 75mg daily. Medications at Discharge Home Medications flash glucose sensor (FreeStyle Aliya 2 Sensor kit) 09/01/22 flash glucose sensor (FreeStyle Aliya 2 Sensor kit) 09/01/22 icosapent ethyl 1 gram capsule (Vascepa) 2 g PO BID hyperlipidemia 09/01/22 nitroglycerin 0.4 mg sublingual tablet 0.4 mg sublingual Q5M PRN chest pain 09/01/22 pramipexole 0.75 mg tablet 0.75 mg PO QHS restless legs 09/01/22 rosuvastatin 20 mg tablet 20 mg PO DAILY hyperlipidemia 09/01/22 BD Ultra-Fine Rose Mary Pen Needle 32 gauge x 5/32 (pen needle, diabetic) #100 ea 12/19/22 metformin 500 mg tablet,extended release 24 hr 1,000 mg (2 x 500 mg) PO BID diabetes #360 tabs 01/07/23 mirabegron 50 mg tablet,extended release 24 hr (Myrbetriq) 50 mg PO DAILY bladder #30 tabs 02/02/23 donepezil 5 mg tablet 5 mg PO .COMPLEX tremors 02/25/23 quetiapine 25 mg tablet 12.5 mg PO QHS sleep 02/25/23 venlafaxine 75 mg tablet 75 mg PO BID depression 02/25/23 menthol 0.44 %-zinc oxide 20.6 % topical ointment (Calmoseptine) 1 applic topical BID redness/breakdown #0 grams 03/05/23 acetaminophen 500 mg tablet 1,000 mg (2 x 500 mg) PO Q8 #0 tabs 03/11/23 carbidopa 25 mg-levodopa 100 mg tablet 2 tab PO TIDAC 30 days #180 tabs 03/11/23 gabapentin 100 mg capsule 100 mg PO BIDCM 30 days #60 caps 03/11/23 insulin glargine-yfgn 100 unit/mL (3 mL) subcutaneous pen 50 unit (0.5 mL) subcut QHS 30 days #15 mL 03/11/23 insulin lispro 100 unit/mL subcutaneous pen (Humalog KwikPen (U-100) Insulin) 15 unit (0.15 mL) subcut TIDAC 30 days #13.5 mL 03/11/23 tramadol 50 mg tablet 50 mg PO Q6H PRN PRN Pain Score 1-10 14 days #56 tabs 03/11/23 Hospital Course Operations None Procedures None Summary of Care Provided Minutes Spent on Discharge: 35 Hospital Course: 72 year old male with below past medical history hospitalized for falls, weakness of legs, probable progression of Parkinson Disease, admitted to TCU with debility, here for rehabilitation, strengthening, prior to discharge home with . Discharge home with 03/14/2023, [facility] PT/OT/ST. Physical Exam Const alert General Appearance: cooperative HEENT normocephalic Eyes PERRL and EOMs intact bilaterally Neck supple, no JVD and no carotid bruits Resp normal respiratory effort, normal air movement and clear to auscultation bilaterally Cardio regular rate and regular rhythm GI normal to inspection, nondistended, normoactive bowel sounds, non-tender and non-distended Extremity normal capillary refill General Extremity: Negative for edema Skin no rashes or lesions noted General Skin Exam: no breakdown Psych affect normal Appearance: appropriate Weight / BMI Weight Weight: 123.604 kg Body Mass Index (BMI) 36.9 ABG / Lab / Microbiology Data 03/06/23 05:13 03/06/23 05:13 Laboratory: Laboratory Results - last 24 hr 03/10/23 21:22: POC Glucose 157 H 03/11/23 06:22: POC Glucose 145 H 03/11/23 11:25: POC Glucose 228 H 03/11/23 16:48: POC Glucose 186 H Microbiology: Microbiology 03/09/23 06:48 Nasal Secretion SARS-CoV-2 Antigen (Rapid) - Final 03/06/23 06:04 Nasal Secretion SARS-CoV-2 Antigen (Rapid) - Final D/C Instructions Discharge Diet: No restrictions Discharge Activity: Return to Normal Activity, May Shower and Use Walker May resume sexual activity in: No Restrictions Weight Bearing Status: Weight bearing as tolerated Call your doctor if you observe: Fever of 101 or Higher, Inability to urinate, Inability to have a bowel movement, Shortness of breath, Dizziness, Fainting spells, Swelling in the ankles, Chest pain and Uncontrolled pain Additional Instructions: Discharge home with 03/14/2023, [facility] PT/OT/ST. Meaningful Use Info Meaningful Use Diagnoses (Choose all that apply): None applicable Discharge Plan Admission Admit Date/Time: 03/05/23 16:08 Primary Reason for Your Visit: Debility. Attending Provider: Abdiel Luis Chi Primary Care Provider: Roman Gutierrez Instructions Additional Instructions / Restrictions: Discharge home with 03/14/2023, [facility] PT/OT/ST. Discharge Orders/Prescriptions Prescriptions: New tramadol 50 mg Tablet 50 mg PO Q6H PRN PRN (Reason: Pain Score 1-10) 14 Days Qty: 56 0RF acetaminophen 500 mg Tablet 1,000 mg PO Q8 Qty: 0 0RF gabapentin 100 mg Capsule 100 mg PO BIDCM 30 Days Qty: 60 0RF carbidopa-levodopa 25-100 mg Tablet 2 tab PO TIDAC 30 Days Qty: 180 0RF insulin lispro [Humalog KwikPen Insulin] 100 unit/mL Insulin Pen 15 unit subcut TIDAC 30 Days Qty: 13.5 0RF insulin glargine-yfgn 100 unit/mL (3 mL) Insulin Pen 50 unit subcut QHS 30 Days Qty: 15 0RF Continued icosapent ethyl [Vascepa] 1 gram capsule 2 g PO BID Hold Instructions: pt refused Patient Comments: not currently taking as of 02/25/23 due to difficult to swallow nitroglycerin 0.4 mg tablet, sublingual 0.4 mg sublingual Q5M PRN (Reason: chest pain) Rx Instructions: do not exceed 3 doses per episode pramipexole 0.75 mg tablet 0.75 mg PO QHS rosuvastatin 20 mg tablet 20 mg PO DAILY Myrbetriq 50 mg tablet extended release 24 hr 50 mg PO DAILY Qty: 30 1RF quetiapine 25 mg tablet 12.5 mg PO QHS Patient Comments: take 1/2 tablet by mouth at bedtime venlafaxine 75 mg tablet 75 mg PO BID Patient Comments: take 1 tablet by mouth twice a day donepezil 5 mg tablet 5 mg PO .COMPLEX Patient Comments: take 1 tablet by mouth EVERY MORNING WITH BREAKFAST Rx Instructions: 5 mg orally daily with breakfast; menthol-zinc oxide [Calmoseptine] 0.44-20.6 % Ointment 1 applic topical BID Qty: 0 0RF Protocol: *Topical Application Instructions APPLICATION INSTRUCTIONS: redness to buttock metformin 500 mg tablet extended release 24 hr 1,000 mg PO BID Qty: 360 1RF Discontinued Calcium 600 with Vitamin D3 600 mg-10 mcg (400 unit) tablet,chewable 1 tab PO DAILY carbidopa-levodopa 25-100 mg tablet 1 tab PO TID polyethylene glycol 3350 [Miralax] 17 gram/dose powder 4 g PO DAILY PRN (Reason: constipation) venlafaxine 75 mg capsule,extended release 24hr 75 mg PO BID Qty: 60 1RF acetaminophen 325 mg Tablet 650 mg PO Q6H PRN PRN (Reason: Pain 1-10 Or Fever>100.7) Qty: 0 0RF miconazole nitrate [Desenex] 2 % Powder 1 applic topical BID Qty: 0 0RF Protocol: *Topical Application Instructions APPLICATION INSTRUCTIONS: yeasty folds bisacodyl 10 mg Suppository 10 mg NE DAILY PRN (Reason: Constipation) Qty: 0 0RF Glucagon Emergency Kit (human) 1 mg Recon Soln 1 mg IM X1 PRN (Reason: Hypoglycemia) Qty: 0 0RF insulin lispro [Humalog KwikPen Insulin] 100 unit/mL Insulin Pen See Protocol subcut ACHS Qty: 0 0RF Protocol: 4. Sliding Scale Insulin High-Med Dosing Condition: 150-199 mg/dl = 2 units Condition: 200-259 mg/dl = 4 units Condition: 260-324 mg/dl = 6 units Condition: 325-374 mg/dl = 8 units Condition: 375-409 mg/dl = 10 units Condition: 410-449 mg/dl = 11 units Condition: Greater than 449 call physician Protocol Text: - Use for Total Daily Dose of Insulin 56-80 units - Patient who are insulin resistant or septic HIGH MEDIUM DOSING ALGORITHM insulin lispro [Humalog KwikPen Insulin] 100 unit/mL Insulin Pen 10 unit subcut TIDAC Qty: 0 0RF Protocol: 4. Sliding Scale Insulin High-Med Dosing insulin glargine-yfgn 100 unit/mL (3 mL) Insulin Pen 30 unit subcut QHS Qty: 0 0RF No Action (DME) FreeStyle Aliya 2 Sensor Kit See Rx Instructions .Route Rx Instructions: As directed (DME) FreeStyle Aliya 2 Sensor Kit See Rx Instructions .Route Rx Instructions: As directed (DME) pen needle, diabetic [BD Ultra-Fine Rose Mary Pen Needle] 32 gauge x 5/32 needle See Rx Instructions .ROUTE .MEDSUPPLY Qty: 100 6RF Rx Instructions: tid Referrals / Follow Up: Roman Gutierrez MD [Primary Care Provider] - Disposition Disposition (needs filled in before D/C Order can be placed): Home Health Service
--- NOTE | 2023-03-11 18:26 | DS.PCM_ITS ---
Providers Date of Admission: 03/05/23 Primary Care Physician: Dr. Roman Gutierrez MD Reason For Visit: DEBILITY Diagnosis Discharge Diagnosis (1) Debility: Status: Acute Code(s): R53.81 - Other malaise (2) Falls: Status: Acute Code(s): W19.XXXA - Unspecified fall, initial encounter (3) Weakness of both legs: Status: Acute Code(s): R29.898 - Other symptoms and signs involving the musculoskeletal system (4) Parkinson's disease: Status: Acute Code(s): G20.A1 - Parkinson's disease without dyskinesia, without mention of fluctuations (5) Hyperlipemia: Status: Acute Code(s): E78.5 - Hyperlipidemia, unspecified (6) Diabetes: Status: Chronic Code(s): E11.9 - Type 2 diabetes mellitus without complications Qualifiers: Diabetes mellitus type: type 2 Diabetes mellitus longterm insulin use: with terminal makeup operator use Diabetes mellitus complication status: with hyperglycemia Qualified Code(s): E11.65 - Type 2 diabetes mellitus with hyperglycemia; 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 (7) Overactive bladder: Status: Acute Code(s): N32.81 - Overactive bladder (8) Depression: Status: Acute Code(s): F32.A - Depression, unspecified (9) Insomnia: Status: Acute Code(s): G47.00 - Insomnia, unspecified (10) Parkinson's disease dementia: Status: Acute Code(s): G20.A1 - Parkinson's disease without dyskinesia, without mention of fluctuati ons; F02.80 - Dementia in other diseases classified elsewhere, unspecified severity, without behavioral disturbance, psychotic disturbance, mood disturbance, and anxiety Plan 72 year old male with below past medical history hospitalized for falls, weakness of legs, probable progression of Parkinson Disease, admitted to TCU with debility, here for rehabilitation, strengthening, prior to discharge home with . * Debility - PT/OT. * Pain - Tylenol 1000mg q6 prn pain (1-10). * Bowel - senna/colace 1 tablet bid, Magnesium citrate 300ml daily prn. * Adult immunization - Administer pneumonia vaccine, covid vaccine, flu vaccine as appropriate. * DVT prophylaxis - Hold, monitor. * Hyperlipidemia - Atorvastatin 40mg daily. * Parkinson Disease - Increase Sinemet 25/100mg 2 tablets tidac, continue Mirapex 0.75mg qhs. * Parkinson Disease Dementia - Donepezil 5mg daily. * Diabetes Mellitus II - Metformin 1000mg bidcm, Glargine 30 units qhs, Humalog 10 units tidac. * Skin irritation - Calmoseptine topical bid. * Tinea Corporis - Miconazole topical bid. * Insomnia - Seroquel 12.5mg qhs, stable chronic longterm use, GDR not recommended. * Depression - Venlafaxine 75mg bid, stable chronic longterm use, GDR not recommended. * Overactive bladder - Gemtasa 75mg daily. Medications at Discharge Home Medications flash glucose sensor (FreeStyle Aliya 2 Sensor kit) 09/01/22 flash glucose sensor (FreeStyle Aliya 2 Sensor kit) 09/01/22 icosapent ethyl 1 gram capsule (Vascepa) 2 g PO BID hyperlipidemia 09/01/22 nitroglycerin 0.4 mg sublingual tablet 0.4 mg sublingual Q5M PRN chest pain 09/01/22 pramipexole 0.75 mg tablet 0.75 mg PO QHS restless legs 09/01/22 rosuvastatin 20 mg tablet 20 mg PO DAILY hyperlipidemia 09/01/22 BD Ultra-Fine Rose Mary Pen Needle 32 gauge x 32 (pen needle, diabetic) #100 ea 12/19/22 metformin 500 mg tablet,extended release 24 hr 1,000 mg (2 x 500 mg) PO BID dontrell betes #360 tabs 01/07/23 mirabegron 50 mg tablet,extended release 24 hr (Myrbetriq) 50 mg PO DAILY bladder #30 tabs 02/02/23 donepezil 5 mg tablet 5 mg PO .COMPLEX tremors 02/25/23 quetiapine 25 mg tablet 12.5 mg PO QHS sleep 02/25/23 venlafaxine 75 mg tablet 75 mg PO BID depression 02/25/23 menthol 0.44 %-zinc oxide 20.6 % topical ointment (Calmoseptine) 1 applic topical BID redness/breakdown #0 grams 03/05/23 acetaminophen 500 mg tablet 1,000 mg (2 x 500 mg) PO Q8 #0 tabs 03/11/23 carbidopa 25 mg-levodopa 100 mg tablet 2 tab PO TIDAC 30 days #180 tabs 03/11/23 gabapentin 100 mg capsule 100 mg PO BIDCM 30 days #60 caps 03/11/23 insulin glargine-yfgn 100 unit/mL (3 mL) subcutaneous pen 50 unit (0.5 mL) subcut QHS 30 days #15 mL 03/11/23 insulin lispro 100 unit/mL subcutaneous pen (Humalog KwikPen (U-100) Insulin) 15 unit (0.15 mL) subcut TIDAC 30 days #13.5 mL 03/11/23 tramadol 50 mg tablet 50 mg PO Q6H PRN PRN Pain Score 1-10 14 days #56 tabs 03/11/23 Hospital Course Operations None Procedures None Summary of Care Provided Minutes Spent on Discharge: 35 Hospital Course: 72 year old male with below past medical history hospitalized for falls, weakness of legs, probable progression of Parkinson Disease, admitted to TCU with debility, here for rehabilitation, strengthening, prior to discharge home with . Discharge home with 03/14/2023, [facility] PT/OT/ST. Physical Exam Const
[2023-03-11 20:31] VITALS: RESP 16
[2023-03-11] MEDS: Insulin Glargine-YFGN 100 UNIT/ML Pen 50 UNIT SC (22:41)
[2023-03-11] MEDS: Pramipexole Di-HCl 0.5 MG Tablet 0.75 MG PO (22:45)
[2023-03-11] MEDS: QUEtiapine 25 MG Tablet 12.5 MG PO (22:45)
[2023-03-11] MEDS: Atorvastatin Calcium 40 MG Tablet PO (22:45)
[2023-03-11 23:13] LABS: Bedside Glucose 122 mg/dL (74-106)
[2023-03-12] MEDS: Acetaminophen 500 MG Tablet 1000 MG PO ×3 (05:42→22:31)
[2023-03-12] MEDS: Carbidopa/Levodopa 25/100 Tablet PO ×3 (05:42→17:30)
[2023-03-12 06:04] LABS: Bedside Glucose 124 mg/dL (74-106)
[2023-03-12] MEDS: Donepezil HCl 5 MG Tablet PO (08:31)
[2023-03-12] MEDS: Vibegron 75 MG TABLET PO (08:31)
[2023-03-12] MEDS: Insulin Lispro 100 UNIT/ML INSULN.PEN 15 UNIT SC ×3 (08:31→17:30)
[2023-03-12] MEDS: metFORMIN (XR) 500 MG Tablet 1000 MG PO ×2 (08:31→17:30)
[2023-03-12] MEDS: Menthol/Lanolin/Calamine/Znox 113 GM Tube 1 APPLIC TOPICAL ×2 (08:31→22:30)
[2023-03-12] MEDS: Miconazole Nitrate 43 GM Bottle 1 APPLIC TOPICAL ×2 (08:31→22:31)
[2023-03-12] MEDS: Venlafaxine HCl 75 MG Tablet PO ×2 (08:31→22:34)
[2023-03-12] MEDS: Senna/Docusate Sodium 1 Tablet PO ×2 (08:31→22:32)
[2023-03-12] MEDS: traMADol 50 MG Tablet PO ×2 (08:36→22:29)
[2023-03-12] MEDS: Gabapentin 100 MG Capsule PO ×2 (08:36→17:30)
[2023-03-12 10:00] VITALS: PULSE 79; O2SAT 95
[2023-03-12 11:23] LABS: Bedside Glucose 233 mg/dL (74-106)
[2023-03-12 11:39] VITALS: BP 141/73; PULSE 79; RESP 18; TEMP 36.1; O2SAT 95
[2023-03-12 16:26] LABS: Bedside Glucose 177 mg/dL (74-106)
[2023-03-12 21:56] LABS: Bedside Glucose 167 mg/dL (74-106)
[2023-03-12] MEDS: Atorvastatin Calcium 40 MG Tablet PO (22:32)
[2023-03-12] MEDS: Insulin Glargine-YFGN 100 UNIT/ML Pen 50 UNIT SC (22:33)
[2023-03-12] MEDS: QUEtiapine 25 MG Tablet 12.5 MG PO (22:34)
[2023-03-12] MEDS: Pramipexole Di-HCl 0.5 MG Tablet 0.75 MG PO (22:35)
[2023-03-13] MEDS: Carbidopa/Levodopa 25/100 Tablet PO ×3 (05:38→17:34)
[2023-03-13] MEDS: Acetaminophen 500 MG Tablet 1000 MG PO ×3 (05:38→21:52)
[2023-03-13 05:53] LABS: Absolute Lymphocyte Count 1.33 X10^3/uL (0.83-4.51); Absolute Neutrophil Count 4.6 X10^3/uL (2.0-7.7); Basophil# 0.03 X10^3/uL; Basophil% 0.4 % (0-1); Eosinophil# 0.21 X10^3/uL; Eosinophils% 3.1 % (0-5); Hematocrit 44.8 % (40-54); Hemoglobin 14.6 g/dL (13.0-16.5); Lymphocyte # 1.33 X10^3/ul (0.83-4.51); Lymphocyte % 19.8 % (19-41); Mean Corp Hgb Conc 32.6 g/dL (32-36); Mean Corpuscular Hgb 27.4 pg (27.0-32.0); Mean Corpuscular Volume 84.1 fL (80-94); Mean Platelet Vol. 8.9 fl (6.2-12.0); Monocyte# 0.52 X10^3/uL; Monocyte% 7.7 % (0-10); NRBC Flagged by Analyzer 0 % (0-5); Neutrophil # 4.58 X10^3/uL (2.7-7.7); Neutrophil % 68.4 % (47-70); Platelet Count 232 K/mm3 (150-450); RBC Distribution Width CV 14.1 % (11.6-14.6); RBC Distribution Width SD 42.8 fl (35.1-43.9); Red Blood Count 5.33 M/mm3 (4.6-6.2); White Blood Count 6.7 K/mm3 (4.4-11.0)
[2023-03-13 06:33] LABS: Bedside Glucose 123 mg/dL (74-106)
[2023-03-13 06:44] LABS: Anion Gap 5 (5-15); BUN 23 mg/dL (7-18); BUN/Creat Ratio 21.3 RATIO (10-20); Calcium,Total 8.5 mg/dL (8.5-10.1); Chloride 108 mmol/L (98-107); Creatinine, Serum 1.08 mg/dL (0.70-1.30); EST Glomerular Filtration Rate 71 mL/min (>60); Est Glom Filt Rate - Afr Amer 86 mL/min (>60); Estimated Creatinine Clearance 83.95 ml/min; Glucose 135 mg/dL (74-106); Potassium 4.1 mmol/L (3.5-5.1); Sodium Level 140 mmol/L (136-145)
[2023-03-13] MEDS: Insulin Lispro 100 UNIT/ML INSULN.PEN 15 UNIT SC ×3 (08:13→17:34)
[2023-03-13] MEDS: Vibegron 75 MG TABLET PO (08:14)
[2023-03-13] MEDS: Senna/Docusate Sodium 1 Tablet PO ×2 (08:14→21:52)
[2023-03-13] MEDS: Miconazole Nitrate 43 GM Bottle 1 APPLIC TOPICAL ×2 (08:14→21:58)
[2023-03-13] MEDS: metFORMIN (XR) 500 MG Tablet 1000 MG PO ×2 (08:14→17:34)
[2023-03-13] MEDS: Venlafaxine HCl 75 MG Tablet PO ×2 (08:14→21:52)
[2023-03-13] MEDS: Donepezil HCl 5 MG Tablet PO (08:14)
[2023-03-13] MEDS: Menthol/Lanolin/Calamine/Znox 113 GM Tube 1 APPLIC TOPICAL ×2 (08:15→21:57)
[2023-03-13] MEDS: Gabapentin 100 MG Capsule PO ×2 (08:18→17:38)
--- NOTE | 2023-03-13 09:07 | NURSING ---
[employer] Note; MDS for 03/12/2023 Complete
[2023-03-13 11:52] LABS: Bedside Glucose 245 mg/dL (74-106)
--- NOTE | 2023-03-13 15:46 | MDS.RN ---
Information for the mds was obtained from review of the clinical record, interview of resident, staff, and direct observation of resident's care.
[2023-03-13 16:00] VITALS: BP 139/69; PULSE 82; RESP 18; TEMP 36.4; O2SAT 96
[2023-03-13 17:14] LABS: Bedside Glucose 146 mg/dL (74-106)
[2023-03-13 21:31] LABS: Bedside Glucose 213 mg/dL (74-106)
[2023-03-13] MEDS: Insulin Glargine-YFGN 100 UNIT/ML Pen 50 UNIT SC (21:51)
[2023-03-13] MEDS: Pramipexole Di-HCl 0.5 MG Tablet 0.75 MG PO (21:52)
[2023-03-13] MEDS: QUEtiapine 25 MG Tablet 12.5 MG PO (21:52)
[2023-03-13] MEDS: Atorvastatin Calcium 40 MG Tablet PO (21:57)
[2023-03-14] MEDS: Acetaminophen 500 MG Tablet 1000 MG PO (05:38)
[2023-03-14] MEDS: Carbidopa/Levodopa 25/100 Tablet PO ×2 (05:38→11:23)
[2023-03-14 07:09] LABS: Bedside Glucose 136 mg/dL (74-106)
[2023-03-14] MEDS: Insulin Lispro 100 UNIT/ML INSULN.PEN 15 UNIT SC (08:39)
[2023-03-14] MEDS: Donepezil HCl 5 MG Tablet PO (08:41)
[2023-03-14] MEDS: metFORMIN (XR) 500 MG Tablet 1000 MG PO (08:41)
[2023-03-14] MEDS: Miconazole Nitrate 43 GM Bottle 1 APPLIC TOPICAL (08:42)
[2023-03-14] MEDS: Menthol/Lanolin/Calamine/Znox 113 GM Tube 1 APPLIC TOPICAL (08:42)
[2023-03-14] MEDS: Venlafaxine HCl 75 MG Tablet PO (08:43)
[2023-03-14] MEDS: Vibegron 75 MG TABLET PO (08:43)
[2023-03-14] MEDS: Senna/Docusate Sodium 1 Tablet PO (08:43)
[2023-03-14] MEDS: Gabapentin 100 MG Capsule PO (08:52)
[2023-03-14] MEDS: traMADol 50 MG Tablet PO (08:52)
== END 2023-03-14 11:40 | disposition home health service (06) | DRG 57 ==
PROVIDERS: Admitting Provider Family Medicine Geriatric Medicine; PCP Family Medicine; Visit Provider Family Medicine Geriatric Medicine
DX: G20.A1 Parkinson's disease without dyskinesia, without mention of fluctuations (principal); E11.42 Type 2 diabetes mellitus with diabetic polyneuropathy; E11.65 Type 2 diabetes mellitus with hyperglycemia; E78.5 Hyperlipidemia, unspecified; B35.4 Tinea corporis; G31.83 Neurocognitive disorder with Lewy bodies; Z79.4 Long term (current) use of insulin; F32.A Depression, unspecified; N32.81 Overactive bladder; G47.00 Insomnia, unspecified; Z79.899 Other long term (current) drug therapy
CPT/HCPCS: 36415; 80048; 80061; 82607; 82962; 85025; 87811; 92507; 92522; 92523; 97110; 97129; 97130; 97162; 97166; 97530; 97535; 97802

== ENCOUNTER 2023-07-29 11:15 | Outpatient (RCR) | payer MEDICARE, SELFPAY ==
[2023-07-15 09:33] VITALS: BP 168/81; PULSE 102; RESP 18; TEMP 36.7; BMI 29.4
--- NOTE | 2023-07-15 10:02 | HP.PCM_ITS ---
History of Present Illness Date of Service: 07/15/23 Chief Complaint: Venous stasis ulceration of the right pretibial area History of Wound: This is an obese 72-year-old diabetic male who presented with a venous stasis ulceration on the right pretibial area. The ulceration has been present for approximately 2 to 3 weeks. However, the patient has had similar occurrences in the past. He has had previous episodes whereby blisters have spontaneously occurred on his distal lower extremities, subsequently erupting into small open wounds. The patient suffers from Parkinson's disease. He is obese, with a BMI of 36.1. His activity is very limited based upon his Parkinson's disease and prior lower extremity fractures. 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 He sleeps in a recliner, with his lower extremities in a dependent position. He ambulates in very li mited fashion using a cane. He denies a history of thrombophlebitis. Progress of Wound: Mr. Silva is a 7-year-old diabetic male presenting to the wound care center today for evaluation of full-thickness ulceration to the left leg. Patient is diabetic and admits he has ups and downs with high blood sugars of 300 mg/dL. The patient's states that they just noticed a wound to the left leg but the be been treating at home. They been having trouble getting wound care supplies to the insurance. They felt that they have been thrown around by doctors to get the right approval and eventually through their family practitioner that referral to wound care center to be evaluated by the specialist. Patient is unsure how the wound happened. He does have some bouts of incontinence. He denies any trauma to the leg. Denies constitutional symptoms. No other pedal complaints at this time. [facility] Medical History Peripheral neuropathy Venous hypertension, chronic, with ulcer and inflammation Lipodermatosclerosis Hyperpigmentation Leg edema, left Leg edema, right Left leg swelling Right leg swelling Dependent edema Inactivity Parkinson disease Hyperlipemia Diabetes Home Medications ?Medication ?Instructions ?Recorded ?Last Taken ?Type flash glucose sensor (FreeStyle 09/01/22 Unknown History Aliya 2 Sensor kit) flash glucose sensor (FreeStyle 09/01/22 Unknown History Aliya 2 Sensor kit) nitroglycerin 0.4 mg sublingual 0.4 mg sublingual Q5M PRN chest 09/01/22 Unknown History tablet pain pramipexole 0.75 mg tablet 0.75 mg PO QHS restless legs 09/01/22 03/04/23 History rosuvastatin 20 mg tablet 20 mg PO DAILY hyperlipidemia 09/01/22 03/04/23 History mirabegron 50 mg tablet,extended 50 mg PO DAILY bladder #30 tabs 02/02/23 03/05/23 Rx release 24 hr (Myrbetriq) donepezil 5 mg tablet 5 mg PO .COMPLEX tremors 02/25/23 03/05/23 History quetiapine 25 mg tablet 12.5 mg PO QHS sleep 02/25/23 03/04/23 History venlafaxine 75 mg tablet 75 mg PO BID depression 02/25/23 Unknown History menthol 0.44 %-zinc oxide 20.6 % 1 applic topical BID 03/05/23 03/05/23 Rx topical ointment (Calmoseptine) redness/breakdown #0 grams acetaminophen 500 mg tablet 1,000 mg (2 x 500 mg) PO Q8 #0 tabs 03/11/23 Unknown Rx carbidopa 25 mg-levodopa 100 mg 2 tab PO TIDAC 30 days #180 tabs 03/11/23 Unknown Rx tablet gabapentin 100 mg capsule 100 mg PO BIDCM 30 days #60 caps 03/11/23 Unknown Rx tramadol 50 mg tablet 50 mg PO Q6H PRN PRN Pain Score 03/11/23 Unknown Rx 1-10 14 days #56 tabs insulin glargine-yfgn 100 unit/mL 50 unit (0.5 mL) subcut QHS 30 05/04/23 Unknown Rx (3 mL) subcutaneous pen days #15 mL BD Ultra-Fine Rose Mary Pen Needle 32 #100 ea 05/18/23 Unknown Rx gauge x 5/32 (pen needle, diabetic) metformin 500 mg tablet,extended 1,000 mg (2 x 500 mg) PO BID 06/29/23 Unknown Rx release 24 hr diabetes #360 tabs insulin lispro 100 unit/mL 30 unit (0.3 mL) subcut TID #27 mL 07/09/23 Unknown Rx subcutaneous pen (Humalog KwikPen (U-100) Insulin) Allergy/AdvReac Type Severity Reaction Status Date / Time sulfamethoxazole (From Allergy Rash Verified 05/04/23 10:47 Bactrim) trimethoprim (From Bactrim) Allergy Rash Verified 05/04/23 10:47 Surgical History History of right inguinal hernia repair History of total right knee replacement Social History household members: spouse housing: house Smoking Status: Never smoker alcohol intake: never substance use type: does not use Vital Signs Vital Signs Vital Signs: 07/15/23 09:33 Temperature 98.1 F Temperature Source Temporal Pulse Rate 102 H Respiratory Rate 18 Blood Pressure 168/81 H Blood Pressure Mean 110 Blood Pressure Source Monitor Blood Pressure Position Semi-Fowlers Blood Pressure Location Left Arm Oxygen Delivery Method Room Air Weight Weight: 98.43 kg Body Mass Index (BMI) 29.4 Physical Exam Narrative Vascular: DP and PT pulses are faintly palpable secondary to edema. +1 pitting edema appreciated bilateral lower extremity. Blanchable erythema appreciated to the bilateral lower extremity. Evidence of venous insufficiency with hemosiderin deposits. Skin temperature great is warm to warm from proximal ankle to distal digits with no focal increase. Neurological: Light touch intact. Protective station is diminished. Dermatological: Full-thickness ulceration to the anterior left leg measuring 4.5 x 4.5 x 0.1 cm. Wound base is granular nature with no sign of infection. No evidence of serous drainage. Evidence of +1 pitting edema appreciated bilateral lower extremity with hemosiderin deposits. Toenails 1 through 5 within normal limits. Both spaces 1 through 4 are clean dry and intact. Excisional debridement down to and including subcutaneous tissue with a number 5 mm dermal curette to the left anterior leg without incident. Predebridement was 4.3 x 4.3 x 0.1 cm. Postdebridement measurement is 4.5 x 4.5 x 0.1 cm. Musculoskeletal: Muscle strength is 5 out of 5 in all quadrants. No pain on palpation to the full-thickness ulceration to the left leg. No pain with calf pression. Debridement Note Debridement Note Debridement Free Text: Excisional debridement down to and including subcutaneous tissue with a number 5 mm dermal curette to the left anterior leg without incident. Predebridement was 4.3 x 4.3 x 0.1 cm. Postdebridement measurement is 4.5 x 4.5 x 0.1 cm. Post-Debridement Measurements and Additional Note: Post-Debridement Measurements/Treatment WC - Nurse 1 - General Ulcer Assessment Start: 07/15/23 09:28 Freq: Status: Active Protocol: SANTIAGO.LOWEXT Activity Type Activity Date Activity User E-sign Co-sign Detail Recorded Client Recorded Date Recorded By Document 07/15/23 09:33 [id number] 07/15/23 09:46 07/15/23 09:33 - Today's Visit Information Type of service Initial Visit Arrival Mode Ambulatory, Walker Accompanied by Patient Identification Verified (Name & Yes ) Safety Precautions Fall Prevention Height and Weight Height 6 ft Weight 98.43 kg Weight in Pounds 217.0 lbs Weight Measurement Method Estimated by Patient Body Mass Index (BMI) 29.4 BMI Classification Overweight BSA - Farrah 2.21 Vital Signs Temperature (97.8 F-99.1 F) 98.1 F Temperature Source Temporal Pulse Rate (60-100) 102 H Pulse Location Monitor Respiratory Rate (12-18) 18 Respiratory rate source Observation Oxygen Delivery Method Room Air Blood Pressure (90/60-120/80) 168/81 H Blood Pressure Mean 110 Source Monitor Position Semi-Fowlers Blood Pressure Location Left Arm History Since Last Visit- (Skip if this is Patient's initial visit) Left Footwear Regular Shoe Right Footwear Regular Shoe Pain Scale: 0-10 Numeric Is Patient Pain Free? Yes Lower Extremity Assessment/ Foot Assessment/ Toe Nail Assessment Right -Posterior Tibial Palpable Yes -Dorsalis Pedis Palpable Yes -Extremity Color Hyperpigmented -Hair Growth on Legs No -Hair Growth on Toes No Left -Posterior Tibial Palpable Yes -Dorsalis Pedis Palpable Yes -Extremity Color Hyperpigmented -Hair Growth on Legs No -Hair Growth on Toes No Communication Assessment Preferred language Lithuanian Fly Fishing Guide Required No Able to Read Yes Able to Write Yes Caregiver Communication Skills No Impairment Impairment Right Hearing Abillity Normal Left Hearing Abillity Normal Visual Assistive Devices Glasses Teaching Assessment Preferences Verbal,Written, Demonstration Barriers to Learning None Readiness To Learn Excellent Willingness to Engage in Self Management High Activies Readiness to Engage in Self Management High Activities Anxiety Level Calm Cooperation Cooperative Perception Coherent Interest in Health Problem Asks Questions Education Importance Acknowledges Need Does Patient Smoke tobacco or other Yes substances Smoking Status Never smoker Is Patient Diabetic Yes Functional Assessment Recent Decline in Ability to Perform Ambulation, Transferring Culture/Pentecostal/Clinical Studies Specialist Cultural/Pentecostal Needs that may affect No Treatment Plan Would you allow our hospital outcomes analyst to No meet you for the purpose of spiritual/ emotional support? Clinical Studies Specialist to contact place of scientologist No WC - Nurse 1 - General Ulcer Measurement Start: 07/15/23 09:28 Freq: Status: Active Protocol: Activity Type Activity Date Activity User E-sign Co-sign Detail Recorded Client Recorded Date Recorded By Document 07/15/23 09:33 [id number] 07/15/23 09:46 07/15/23 09:33 Wound Center Nurse 1 #3 LT DISTAL LE -Current Size (cm) - Length 0.5 -Current Size (cm) - Width 0.4 -Current Size (cm) - Depth 0.1 -Total Square Cm 0.20 -Date of Last Picture (Recall this 07/15/23 field) -Exudate Type Serosanguineous -Wound Margin Distinct, Outline Attached -Granulation Amt Large (67-100%) -Granulation Quality Red -Texture (Coretta-wound Skin Appearance) Assessed -Moisture (Coretta-wound Skin Appearance) Assessed -Color (Coretta-wound Skin Appearance) Assessed, Erythema -Temperature (Coretta-wound Skin No Abnormality Appearance) (Pt Warm) -Tenderness on Palpation (Coretta-wound No Skin Appearance) -Ulcer Cleansing Rinsed/ Irrigated with Saline -Foul Odor after Cleansing No -Anesthetic Used 5% Lidocaine Gel #2 LT MED LE -Current Size (cm) - Length 4.3 -Current Size (cm) - Width 4.5 -Current Size (cm) - Depth 0.1 -Total Square Cm 19.35 -Date of Last Picture (Recall this 07/15/23 field) -Exudate Amt Large -Exudate Type Serosanguineous -Wound Margin Distinct, Outline Attached -Granulation Amt Large (67-100%) -Granulation Quality Red -Texture (Coretta-wound Skin Appearance) Assessed, Localized Edema -Moisture (Coretta-wound Skin Appearance) Assessed, Maceration, Weeping -Color (Coretta-wound Skin Appearance) Assessed, Erythema -Temperature (Coretta-wound Skin No Abnormality Appearance) (Pt Warm) -Ulcer Cleansing Rinsed/ Irrigated with Saline -Foul Odor after Cleansing No -Anesthetic Used 5% Lidocaine Gel Right Calf (cm) 48.8 Right Ankle (cm) 26.5 Left Calf (cm) 47.8 Left Ankle (cm) 23.3 WC - Nurse 2 - General Ulcer CM Notes Start: 07/15/23 09:28 Freq: Status: Active Protocol: Activity Type Activity Date Activity User E-sign Co-sign Detail Recorded Client Recorded Date Recorded By Document 07/15/23 09:53 [id number] 07/15/23 09:55 DS 07/15/23 09:53 Wound Center Nurse 2 #2 LT MED LE -Time 09:54 -Correct Patient Yes -Correct Side, Site, Position Yes -Correct Procedure Yes -Procedure Performed Yes -Type of Procedure Debridement -Clinical Debridement Subcutaneous -Tissue Removed Subcutaneous -Post Debridement (cm) - Length 4.5 -Post Debridement (cm) - Width 4.5 -Post Debridement (cm) - Depth 0.1 -Total Square (Post) (cm) 20.25 -Area of Debridement (cm) - Length 4.5 -Area of Debridement (cm) - Width 4.5 -Total Square (Area) (cm) 20.25 -Tunneling No -Undermining/Tunneling No -Circular Undermining No -Wound/Ulcer Outcome Not Healed -Ulcer Cleansing Rinsed/ Irrigated with Saline -Bleeding Controlled with Pressure -Treatment Response Procedure Tolerated Well -Debridement - Subq, 1st 20sq cm Yes Pain Scale: 0-10 Numeric Is Patient Pain Free? 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 All findings were discussed with the patient. All questions were answered to the patient's satisfaction. Excisional debridement down to and including subcutaneous tissue with a number 5 mm dermal curette to the left anterior leg without incident. Predebridement was 4.3 x 4.3 x 0.1 cm. Postdebridement measurement is 4.5 x 4.5 x 0.1 cm. The left leg was wiped clean and patted dry. Triple antibiotic with Adaptic and bordered foam was applied to the left leg. Tubigrip's were applied to left lower extremity. A culture was taken of the ulceration to rule out any further infection. The patient was placed on specific antibiotics when culture and sensitivity returns. Authorization to the patient's insurance for vascular studies and venous studies were be obtained. Once we get the results we will be more aggressive with compression. It was educated to the patient and his that the patient needs to follow strict blood sugar control with a range of 100 to 150 mg/dL which they are understanding of. The patient will also need to get CircAid wraps prior to discharge after healing the wound so that he can have constant compression as traditional compression stockings are too difficult for the to don. Follow-up at the wound care center with Dr. Dominguez in 1 week. (2) Lymphedema: CODE(S): I89.0 - Lymphedema, not elsewhere classified (3) Other specified peripheral vascular diseases: CODE(S): I73.89 - Other specified peripheral vascular diseases (4) Chronic painful diabetic polyneuropathy: CODE(S): E11.42 - Type 2 diabetes mellitus with diabetic polyneuropathy
--- NOTE | 2023-07-16 11:01 | WC ---
07/17/2023 (I) LEFT MEDIAL LE
--- NOTE | 2023-07-16 11:03 | WC ---
07/15/2023 (I) LEFT MED LOWER EXTREMITY
[2023-07-22 09:18] VITALS: BP 153/89; PULSE 79; RESP 18; TEMP 35.9; BMI 29.4
--- NOTE | 2023-07-22 09:47 | PN.PCM_ITS ---
History of Present Illness Date of Service: 07/22/23 Chief Complaint: Venous stasis ulceration of the right pretibial area History of Wound: This is an obese 72-year-old diabetic male who presented with a venous stasis ulceration on the right pretibial area. The ulceration has been present for approximately 2 to 3 weeks. However, the patient has had similar occurrences in the past. He has had previous episodes whereby blisters have spontaneously occurred on his distal lower extremities, subsequently erupting into small open wounds. The patient suffers from Parkinson's disease. He is obese, with a BMI of 36.1. His activity is very limited based upon his Parkinson's disease and prior lower extremity fractures. 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 He sleeps in a recliner, with his lower extremities in a dependent position. He ambulates in very li mited fashion using a cane. He denies a history of thrombophlebitis. Progress of Wound: Mr. Silva is a 7-year-old diabetic male presenting to the wound care center today for evaluation of full-thickness ulceration to the left leg. Patient is diabetic and admits he has ups and downs with high blood sugars of 300 mg/dL. The patient's states that they just noticed a wound to the left leg but the be been treating at home. They been having trouble getting wound care supplies to the insurance. They felt that they have been thrown around by doctors to get the right approval and eventually through their family practitioner that referral to wound care center to be evaluated by the specialist. Patient is unsure how the wound happened. He does have some bouts of incontinence. He denies any trauma to the leg. Denies constitutional symptoms. No other pedal complaints at this time. Subjective Subjective Mr. Silva is a 73-year-old diabetic male presenting to the wound care center today for evaluation of full-thickness ulceration to left leg. Patient has kept his blood sugars under control. He has gotten his wound care supplies. His has been changing his dressing as instructed. He presents today for follow-up and evaluation as well as reviewing of his culture results from the cultures that were taken during his last visit. He has not seen vascular lab yet for lower extremity arterial studies. He denies trauma. Denies constitutional symptoms. Other pedal complaints at this time. Objective Data Objective Data Vital Signs: Vital Signs Temp Pulse Resp BP O2 Del Method 96.7 F L 79 18 153/89 H Room Air 07/22/23 09:18 07/22/23 09:18 07/22/23 09:18 07/22/23 09:18 07/22/23 09:18 Oxygen Delivery Method Room Air Weight: 98.43 kg Body Mass Index (BMI) 29.4 Lab / Micro Data Micro: Microbiology 07/15/23 09:55 Wound Abcess - Leg, Left Gram Stain - Final 07/15/23 09:55 Wound Abcess - Leg, Left Wound Culture - Final Escherichia coli Streptococcus agalactiae (B) Staphylococcus epidermidis 07/15/23 09:55 Wound Abcess - Leg, Left Anaerobic Culture - Final No anaerobic bacteria isolated. Physical Exam Narrative Vascular: DP and PT pulses are faintly palpable secondary to edema. +1 pitting edema appreciated bilateral lower extremity. Blanchable erythema appreciated to the bilateral lower extremity. Evidence of venous insufficiency with hemosiderin deposits. Skin temperature great is warm to warm from proximal ankle to distal digits with no focal increase. Neurological: Light touch intact. Protective station is diminished. Dermatological: Full-thickness ulceration to the anterior left leg measuring 3.4 x 4.0 x 0.1 cm. Wound base is fibrogranular nature with no sign of infection. No evidence of serous drainage. Evidence of +1 pitting edema appreciated bilateral lower extremity with hemosiderin deposits. Toenails 1 through 5 within normal limits. Both spaces 1 through 4 are clean dry and intact. Excisional debridement down to and including subcutaneous tissue with a number 5 mm dermal curette to the left anterior leg without incident. Predebridement was 3.2 x 3.9 x 0.1 cm. Postdebridement measurement is 3.4 x 4.0 x 0.1 cm. Musculoskeletal: Muscle strength is 5 out of 5 in all quadrants. No pain on palpation to the full-thickness ulceration to the left leg. No pain with calf pression. Debridement Note Debridement Note Debridement Free Text: Excisional debridement down to and including subcutaneous tissue with a number 5 mm dermal curette to the left anterior leg without incident. Predebridement was 3.2 x 3.9 x 0.1 cm. Postdebridement measurement is 3.4 x 4.0 x 0.1 cm. Post-Debridement Measurements and Additional Note: Post-Debridement Measurements/Treatment WC - Nurse 1 - General Ulcer Assessment Start: 07/15/23 09:28 Freq: Status: Active Protocol: ALIEC Activity Type Activity Date Activity User E-sign Co-sign Detail Recorded Client Recorded Date Recorded By Document 07/15/23 09:33 KW [id number] 07/15/23 09:46 KW Document 07/22/23 09:18 wound center 07/22/23 09:21 07/15/23 07/22/23 09:33 09:18 - Today's Visit Information Type of service Initial Visit Follow-up Visit (Physician/MEMORY CARE PROGRAM RESIDENT ) Arrival Mode Ambulatory, Ambulatory, Walker Walker Transfer Assistance None Accompanied by Patient Identification Verified (Name & Yes Yes ) Safety Precautions Fall Prevention Height and Weight Height 6 ft Weight 98.43 kg Weight in Pounds 217.0 lbs Weight Measurement Method Estimated by Patient Body Mass Index (BMI) 29.4 29.4 BMI Classification Overweight Overweight BSA - Farrah 2.21 Vital Signs Temperature (97.8 F-99.1 F) 98.1 F 96.7 F L Temperature Source Temporal Temporal Pulse Rate (60-100) 102 H 79 Pulse Location Monitor Monitor Respiratory Rate (12-18) 18 18 Respiratory rate source Observation Observation Oxygen Delivery Method Room Air Room Air Blood Pressure (90/60-120/80) 168/81 H 153/89 H Blood Pressure Mean (mm Hg) 110 110 Source Monitor Monitor Position Semi-Fowlers Sitting Blood Pressure Location Left Arm Right Arm History Since Last Visit- (Skip if this is Patient's initial visit) Have you changed medications since your No last visit? Any new allergies or adverse reactions No Had a fall/change in ADL's that may No increase risk of falls Signs or symptoms of abuse and/or No neglect since last visit Have you been in the hospital since your No last visit? Has dressing in place as prescribed Yes Has compression in place as prescribed Yes Left Footwear Regular Shoe Right Footwear Regular Shoe Pain Scale: 0-10 Numeric Is Patient Pain Free? Yes Yes Lower Extremity Assessment/ Foot Assessment/ Toe Nail Assessment Right -Posterior Tibial Palpable Yes -Dorsalis Pedis Palpable Yes -Extremity Color Hyperpigmented -Hair Growth on Legs No -Hair Growth on Toes No Left -Posterior Tibial Palpable Yes -Dorsalis Pedis Palpable Yes -Extremity Color Hyperpigmented -Hair Growth on Legs No -Hair Growth on Toes No Communication Assessment Preferred language Croatian Collar Setter Required No Able to Read Yes Able to Write Yes Caregiver Communication Skills No Impairment Impairment Right Hearing Abillity Normal Left Hearing Abillity Normal Visual Assistive Devices Glasses Teaching Assessment Preferences Verbal,Written, Demonstration Barriers to Learning None Readiness To Learn Excellent Willingness to Engage in Self Management High Activies Readiness to Engage in Self Management High Activities Anxiety Level Calm Cooperation Cooperative Perception Coherent Interest in Health Problem Asks Questions Education Importance Acknowledges Need Does Patient Smoke tobacco or other Yes substances Smoking Status Never smoker Is Patient Diabetic Yes Functional Assessment Recent Decline in Ability to Perform Ambulation, Transferring Culture/[employer]ian/Hotel Concierge Cultural/[employer]eterian Needs that may affect No Treatment Plan Would you allow our hospital installer technician to No meet you for the purpose of spiritual/ emotional support? Hotel Concierge to contact place of mosque No WC - Nurse 1 - General Ulcer Measurement Start: 07/15/23 09:28 Freq: Status: Active Protocol: Activity Type Activity Date Activity User E-sign Co-sign Detail Recorded Client Recorded Date Recorded By Document 07/15/23 09:33 [id number] 07/15/23 09:46 KW Document 07/22/23 09:18 wound center 07/22/23 09:21 07/15/23 07/22/23 09:33 09:18 Wound Center Nurse 1 #3 LT DISTAL LE -Current Size (cm) - Length 0.5 -Current Size (cm) - Width 0.4 -Current Size (cm) - Depth 0.1 -Total Square Cm 0.20 -Date of Last Picture (Recall this 07/15/23 field) -Circular Undermining No -Exudate Type Serosanguineous -Wound Margin Distinct, Outline Attached -Granulation Amt Large (67-100%) -Granulation Quality Red Red -Texture (Coretta-wound Skin Appearance) Assessed Assessed -Moisture (Coretta-wound Skin Appearance) Assessed Assessed -Color (Coretta-wound Skin Appearance) Assessed, Assessed Erythema -Temperature (Coretta-wound Skin No Abnormality Appearance) (Pt Warm) -Tenderness on Palpation (Coretta-wound No Skin Appearance) -Ulcer Cleansing Rinsed/ Irrigated with Saline -Foul Odor after Cleansing No -Anesthetic Used 5% Lidocaine Gel #2 LT MED LE -Current Size (cm) - Length 4.3 3.4 -Current Size (cm) - Width 4.5 3.7 -Current Size (cm) - Depth 0.1 0.1 -Total Square Cm 19.35 12.58 -Date of Last Picture (Recall this 07/15/23 field) -Photo Taken No -Epithelialization None Present -Tunneling No -Undermining/Tunneling No -Circular Undermining No -Exudate Amt Large Medium -Exudate Type Serosanguineous Yellow/Green -Wound Margin Distinct, Distinct, Outline Outline Attached Attached -Granulation Amt Large (67-100%) Medium (34-66%) -Granulation Quality Red Red -Slough/Fibrin Yes -Necrosis Amt Medium (34-66%) -Necrotic Tissue Type Adherent Slough -Texture (Coretta-wound Skin Appearance) Assessed, Assessed Localized Edema -Moisture (Coretta-wound Skin Appearance) Assessed, Assessed, Maceration, Maceration Weeping -Color (Coretta-wound Skin Appearance) Assessed, Assessed Erythema -Temperature (Coretta-wound Skin No Abnormality No Abnormality Appearance) (Pt Warm) (Pt Warm) -Tenderness on Palpation (Coretta-wound No Skin Appearance) -Ulcer Cleansing Rinsed/ Rinsed/ Irrigated with Irrigated with Saline Saline -Foul Odor after Cleansing No No -Anesthetic Used 5% Lidocaine 5% Lidocaine Gel Gel Right Calf (cm) 48.8 44.7 Right Ankle (cm) 26.5 24.5 Left Calf (cm) 47.8 48.0 Left Ankle (cm) 23.3 12.5 WC - Nurse 2 - General Ulcer CM Notes Start: 07/15/23 09:28 Freq: Status: Active Protocol: Activity Type Activity Date Activity User E-sign Co-sign Detail Recorded Client Recorded Date Recorded By Document 07/15/23 09:53 DS [id number] 07/15/23 09:55 DS Document 07/22/23 09:34 JF [id number] 07/22/23 09:39 JF 07/15/23 07/22/23 09:53 09:34 Wound Center Nurse 2 #3 LT DISTAL LE -Time 09:34 -Correct Patient No -Correct Side, Site, Position No -Correct Procedure No -Procedure Performed No -Post Debridement (cm) - Length 0 -Post Debridement (cm) - Width 0 -Post Debridement (cm) - Depth 0 -Total Square (Post) (cm) 0 -Area of Debridement (cm) - Length 0 -Area of Debridement (cm) - Width 0 -Total Square (Area) (cm) 0 -Tunneling No -Undermining/Tunneling No -Circular Undermining No -Wound/Ulcer Outcome Healed- Epithelialized -Ulcer Cleansing Rinsed/ Irrigated with Saline -Foul Odor after Cleansing No -Bioengineered Tissue No #2 LT MED LE -Time 09:54 09:35 -Correct Patient Yes Yes -Correct Side, Site, Position Yes Yes -Correct Procedure Yes Yes -Procedure Performed Yes Yes -Type of Procedure Debridement Debridement -Clinical Debridement Subcutaneous Subcutaneous -Tissue Removed Subcutaneous Subcutaneous -Post Debridement (cm) - Length 4.5 3.4 -Post Debridement (cm) - Width 4.5 4.0 -Post Debridement (cm) - Depth 0.1 0.1 -Total Square (Post) (cm) 20.25 13.60 -Area of Debridement (cm) - Length 4.5 3.4 -Area of Debridement (cm) - Width 4.5 4.0 -Total Square (Area) (cm) 20.25 13.60 -Tunneling No No -Undermining/Tunneling No No -Circular Undermining No No -Wound/Ulcer Outcome Not Healed Not Healed -Ulcer Cleansing Rinsed/ Rinsed/ Irrigated with Irrigated with Saline Saline -Foul Odor after Cleansing No -Bioengineered Tissue No -Bleeding Controlled with Pressure Pressure -Treatment Response Procedure Procedure Tolerated Well Tolerated Well -Offloading No -Debridement - Subq, 1st 20sq cm Yes Yes Pain Scale: 0-10 Numeric Is Patient Pain Free? Yes Yes Assessment/Plan Assessment/Plan (1) Non-pressure chronic ulcer of other part of left lower leg with fat layer exposed: CODE(S): L97.822 - Non-pressure chronic ulcer of other part of left lower leg with fat layer exposed PLAN: Patient was examined and evaluated. All findings were discussed with the patient. All questions were answered to the patient's satisfaction. Excisional debridement down to and including subcutaneous tissue with a number 5 mm dermal curette to the left anterior leg without incident. Predebridement was 3.2 x 3.9 x 0.1 cm. Postdebridement measurement is 3.4 x 4.0 x 0.1 cm. Left lower extremities were cleaned patted dry. Will change the patient's dressings to Betadine soaked gauze dry sterile dressing and a single-layer Tubigrip to bilateral extremity. Patient will continue to apply the betamethasone to the bilateral extremity with every dressing change. Educated patient continue strict sugar control. Educated the patient continue to ambulate to help with circulation through the bilateral lower extremity which she was understanding of. Will begin authorization for amniotic skin graft substitute next week as that will present for weeks of the documentation for the insurance company. The wound graft will help facilitate and speed up the patient's healing. Follow-up at the wound care center with Dr. Dominguez in 1 week. (2) Other specified peripheral vascular diseases: CODE(S): I73.89 - Other specified peripheral vascular diseases (3) Lymphedema: CODE(S): I89.0 - Lymphedema, not elsewhere classified
--- NOTE | 2023-07-24 12:56 | ART_ITS ---
Reason For Study: Ulcer Procedure A bilateral lower extremity continuous wave Doppler with analog waveform analysis,segmental pressures,and ankle brachial indexes without exercise. Left Segmental Pressures Left brachial= 149mmHg. Left posterior tibial artery = 206mmHg. Left dorsalis pedis artery = 200mmHg. Left digit = 143 mmHg. The left dorsalis pedis waveforms are triphasic. The left posterior tibial artery waveforms are triphasic. Right Segmental Pressures Right brachial= 149mmHg. Right posterior tibial artery = 187mmHg. Right dorsalis pedis artery = 178mmHg. Right digit = 157 mmHg. The right dorsalis pedis waveforms are triphasic. The right posterior tibial artery waveforms are triphasic. Indices The right ankle brachial index by the dorsalis pedis is 1.19. The right ankle brachial index by the posterior tibial artery is 1.26. The right digital-brachial index is 1.05. The left ankle brachial index by the dorsalis pedis is 1.34. The left ankle brachial index by the posterior tibial artery is 1.38. The left digital-brachial index is 0.96. VL/Lower Ext Art Exam w/o Exercis Interpretation Summary Triphasic Doppler waveforms are noted at ankle level bilaterally. Pulse-volume recordings appear satisfactory at all levels bilaterally. Resting ankle-brachial indices are norm al bilaterally. Digital-brachial indices are normal bilaterally. There is no evidence of significant arterial occlusive disease in the lower ext remities bilaterally. Ordering Physician: Luis Dominguez Referring Physician: Trev Gutierrez Performed By: Debbie Orlando RVT
--- NOTE | 2023-07-24 12:56 | VDLE_ITS ---
Reason For Study: Ulcer RIGHT LEFT CFV is compressible, spontaneous, phasic, CFV is compressible, spontaneous, phasic, competent and demonstrates normal competent, and demonstrates normal augmentation. augmentation. FV is compressible, spontaneous, phasic, FV is compressible, spontaneous, phasic, competent and demonstrates normal competent and demonstrates normal augmentation. augmentation. POP V is compressible, spontaneous, phasic, POP V is compressible, spontaneous, phasic, competent and demonstrates normal competent and demonstrates normal augmentation. augmentation. T/P Trunk is compressible. T/P Trunk is compressible. PTV is compressible. PTV is compressible. RT PerV is compressible. LT PerV is compressible. SFJ is competent and measures 0.66 x 0.73 cm. SFJ is competent and measures 0.77 x 0.83 cm. GSV proximal thigh measures 0.38 x 0.36 cm. GSV proximal thigh measures 0.43 x 0.43 cm. GSV at knee measures 0.36 x 0.38 cm. GSV at knee measures 0.43 x 0.44 cm. GSV is competent throughout. GSV is competent throughout. ASV proximal calf is INCOMPETENT for greater ASV proximal calf is INCOMPETENT for greater than 0.5 seconds and measures 0.29 x 0.34 cm. than 0.5 seconds and measures 0.25 x 0.27 cm. SSV proximal calf is competent and measures SSV proximal calf is competent and measures 0.19 x 0.22 cm. 0.32 x 0.38 cm. Procedure Calf veins not visualized at distal calf due This is a venous duplex using B-mode, color to bandages. flow and spectral Doppler. Exam performed in department. Patient was scanned in reverse Trendelenburg position during reflux assessment. A preliminary report was called and/or faxed to . VL/Venous Duplex US - Luis Albetro Extrem Interpretation Summary Deep veins of the lower extremities are bilaterally patent and compressible seg mentally. There is no evidence of deep vein thrombosis on either side. Valvular competence appears in tact within the proximal deep venous systems bilaterally. The great saphenous veins appear bila terally patent and compressible segmentally. Sapheno-femoral junctions are bilaterally competent . Valvular competence appears to be intact segmentally within the great saphenous veins bilaterally. Small saphenous veins are patent and competent bilaterally. The accessory saphenous vein in the right proximal calf is incompetent. The accessory saphenous vein in the left proximal calf is incompet ent. Deep veins in the distal left calf were not visualized due to the presence of bandages. Ordering Physician: Luis Dominguez Referring Physician: Roman Gutierrez Performed By: Debbie Orlando RVT
[2023-07-29 11:17] VITALS: BP 169/87; PULSE 91; RESP 18; TEMP 36; BMI 29.4
--- NOTE | 2023-07-29 12:56 | PN.PCM_ITS ---
History of Present Illness Date of Service: 07/29/23 Chief Complaint: Venous stasis ulceration of the right pretibial area History of Wound: This is an obese 73-year-old diabetic male who presented with a venous stasis ulceration on the right pretibial area. The ulceration has been present for approximately 2 to 3 weeks. However, the patient has had similar occurrences in the past. He has had previous episodes whereby blisters have spontaneously occurred on his distal lower extremities, subsequently erupting into small open wounds. The patient suffers from Parkinson's disease. He is obese, with a BMI of 36.1. His activity is very limited based upon his Parkinson's disease and prior lower extremity fractures. 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 He sleeps in a recliner, with his lower extremities in a dependent position. He ambulates in very li mited fashion using a cane. He denies a history of thrombophlebitis. Progress of Wound: Mr. Silva is a 73-year-old diabetic male presenting to the wound care center today for evaluation of full-thickness ulceration to the left leg. Patient is diabetic and admits he has ups and downs with high blood sugars of 300 mg/dL. The patient's states that they just noticed a wound to the left leg but the be been treating at home. They been having trouble getting wound care supplies to the insurance. They felt that they have been thrown around by doctors to get the right approval and eventually through their family practitioner that referral to wound care center to be evaluated by the specialist. Patient is unsure how the wound happened. He does have some bouts of incontinence. He denies any trauma to the leg. Denies constitutional symptoms. No other pedal complaints at this time. Subjective Subjective Mr. Silva is a 73-year-old diabetic male presenting to the wound care center today for evaluation of full-thickness ulceration to left leg. Patient has kept his blood sugars under control. He has gotten his wound care supplies. His has been changing his dressing as instructed. Patient is to getting his vascular studies done and is also here to review them. He denies trauma. Denies constitutional symptoms. Other pedal complaints at this time. Objective Data Objective Data Vital Signs: Vital Signs Temp Pulse Resp BP O2 Del Method 96.8 F L 91 18 169/87 H Room Air 07/29/23 11:17 07/29/23 11:17 07/29/23 11:17 07/29/23 11:17 07/29/23 11:17 Oxygen Delivery Method Room Air Weight: 98.43 kg Body Mass Index (BMI) 29.4 Lab / Micro Data Micro: Microbiology 07/15/23 09:55 Wound Abcess - Leg, Left Gram Stain - Final 07/15/23 09:55 Wound Abcess - Leg, Left Wound Culture - Final Escherichia coli Streptococcus agalactiae (B) Staphylococcus epidermidis 07/15/23 09:55 Wound Abcess - Leg, Left Anaerobic Culture - Final No anaerobic bacteria isolated. Physical Exam Narrative ascular: DP and PT pulses are faintly palpable secondary to edema. +1 pitting edema appreciated bilateral lower extremity. Blanchable erythema appreciated to the bilateral lower extremity. Evidence of venous insufficiency with hemosider in deposits. Skin temperature great is warm to warm from proximal ankle to distal digits with no focal increase. Neurological: Light touch intact. Protective station is diminished. Dermatological: Full-thickness ulceration to the anterior left leg measuring 3.1 x 3.6 x 0.1 cm. Wound base is fibrogranular nature with no sign of infection. No evidence of serous drainage. Evidence of +1 pitting edema appreciated bilateral lower extremity with hemosiderin deposits. Toenails 1 through 5 within normal limits. Both spaces 1 through 4 are clean dry and intact. Excisional debridement down to and including subcutaneous tissue with a number 5 mm dermal curette to the left anterior leg without incident. Predebridement was 3.0 x 3.5 x 0.1 cm. Postdebridement measurement is 3.1 x 3.6 x 0.1 cm. Musculoskeletal: Muscle strength is 5 out of 5 in all quadrants. No pain on palpation to the full-thickness ulceration to the left leg. No pain with calf pression. Debridement Note Debridement Note Debridement Free Text: Excisional debridement down to and including subcutaneous tissue with a number 5 mm dermal curette to the left anterior leg without incident. Predebridement was 3.0 x 3.5 x 0.1 cm. Postdebridement measurement is 3.1 x 3.6 x 0.1 cm. Post-Debridement Measurements and Additional Note: Post-Debridement Measurements/Treatment WC - Nurse 1 - General Ulcer Assessment Start: 07/15/23 09:28 Freq: Status: Active Protocol: WC.LOWEXT Activity Type Activity Date Activity User E-sign Co-sign Detail Recorded Client Recorded Date Recorded By Document 07/15/23 09:33 KW [id number] 07/15/23 09:46 KW Document 07/22/23 09:18 wound center 07/22/23 09:21 GM Document 07/29/23 11:17 GM wc 07/29/23 11:28 07/15/23 07/22/23 07/29/23 09:33 09:18 11:17 - Today's Visit Information Type of service Initial Visit Follow-up Visit Follow-up Visit (Physician/BLIND SLAT STAPLING MACHINE OPERATOR (Physician/BLIND SLAT STAPLING MACHINE OPERATOR ) ) Arrival Mode Ambulatory, Ambulatory, Ambulatory Walker Walker Transfer Assistance None None Accompanied by Patient Identification Verified (Name & Yes Yes Yes ) Patient Requires Transmission-Based No Precautions Safety Precautions Fall Prevention Height and Weight Height 6 ft Weight 98.43 kg Weight in Pounds 217.0 lbs Weight Measurement Method Estimated by Patient Body Mass Index (BMI) 29.4 29.4 29.4 BMI Classification Overweight Overweight Overweight BSA - Farrah 2.21 Vital Signs Temperature (97.8 F-99.1 F) 98.1 F 96.7 F L 96.8 F L Temperature Source Temporal Temporal Oral Pulse Rate (60-100) 102 H 79 91 Pulse Location Monitor Monitor Monitor Respiratory Rate (12-18) 18 18 18 Respiratory rate source Observation Observation Observation Oxygen Delivery Method Room Air Room Air Room Air Blood Pressure (90/60-120/80) 168/81 H 153/89 H 169/87 H Blood Pressure Mean (mm Hg) 110 110 114 Source Monitor Monitor Monitor Position Semi-Fowlers Sitting Sitting Blood Pressure Location Left Arm Right Arm Left Arm History Since Last Visit- (Skip if this is Patient's initial visit) Have you changed medications since your No No last visit? Any new allergies or adverse reactions No No Had a fall/change in ADL's that may No No increase risk of falls Signs or symptoms of abuse and/or No No neglect since last visit Have you been in the hospital since your No No last visit? Has dressing in place as prescribed Yes Yes Has compression in place as prescribed Yes Yes Has offloadiing in place as prescribed N/A Left Footwear Regular Shoe Regular Shoe Right Footwear Regular Shoe Regular Shoe Pain Scale: 0-10 Numeric Is Patient Pain Free? Yes Yes Yes Lower Extremity Assessment/ Foot Assessment/ Toe Nail Assessment Right -Posterior Tibial Palpable Yes -Dorsalis Pedis Palpable Yes -Extremity Color Hyperpigmented -Hair Growth on Legs No -Hair Growth on Toes No Left -Posterior Tibial Palpable Yes -Dorsalis Pedis Palpable Yes -Extremity Color Hyperpigmented -Hair Growth on Legs No -Hair Growth on Toes No Communication Assessment Preferred language Croatian Title Manager Required No Able to Read Yes Able to Write Yes Caregiver Communication Skills No Impairment Impairment Right Hearing Abillity Normal Left Hearing Abillity Normal Visual Assistive Devices Glasses Teaching Assessment Preferences Verbal,Written, Demonstration Barriers to Learning None Readiness To Learn Excellent Willingness to Engage in Self Management High Activies Readiness to Engage in Self Management High Activities Anxiety Level Calm Cooperation Cooperative Perception Coherent Interest in Health Problem Asks Questions Education Importance Acknowledges Need Does Patient Smoke tobacco or other Yes substances Smoking Status Never smoker Is Patient Diabetic Yes Functional Assessment Recent Decline in Ability to Perform Ambulation, Transferring Culture/Scientologist/Industrial Safety Engineer Cultural/Scientologist Needs that may affect No Treatment Plan Would you allow our hospital [employer] school principal to No meet you for the purpose of spiritual/ emotional support? Industrial Safety Engineer to contact place of faith No WC - Nurse 1 - General Ulcer Measurement Start: 07/15/23 09:28 Freq: Status: Active Protocol: Activity Type Activity Date Activity User E-sign Co-sign Detail Recorded Client Recorded Date Recorded By Document 07/15/23 09:33 [id number] 07/15/23 09:46 Document 07/22/23 09:18 wound center 07/22/23 09:21 Document 07/29/23 11:17 [facility] 07/29/23 11:28 07/15/23 07/22/23 07/29/23 09:33 09:18 11:17 Wound Center Nurse 1 #3 LT DISTAL LE -Current Size (cm) - Length 0.5 -Current Size (cm) - Width 0.4 -Current Size (cm) - Depth 0.1 -Total Square Cm 0.20 -Date of Last Picture (Recall this 07/15/23 field) -Circular Undermining No -Exudate Type Serosanguineous -Wound Margin Distinct, Outline Attached -Granulation Amt Large (67-100%) -Granulation Quality Red Red -Texture (Coretta-wound Skin Appearance) Assessed Assessed -Moisture (Coretta-wound Skin Appearance) Assessed Assessed -Color (Coretta-wound Skin Appearance) Assessed, Assessed Erythema -Temperature (Coretta-wound Skin No Abnormality Appearance) (Pt Warm) -Tenderness on Palpation (Coretta-wound No Skin Appearance) -Ulcer Cleansing Rinsed/ Irrigated with Saline -Foul Odor after Cleansing No -Anesthetic Used 5% Lidocaine Gel #2 LT MED LE -Current Size (cm) - Length 4.3 3.4 1.0 -Current Size (cm) - Width 4.5 3.7 1.5 -Current Size (cm) - Depth 0.1 0.1 0.1 -Total Square Cm 19.35 12.58 1.50 -Date of Last Picture (Recall this 07/15/23 field) -Photo Taken No No -Epithelialization None Present Small 1-33% -Tunneling No No -Undermining/Tunneling No No -Circular Undermining No No -Exudate Amt Large Medium Medium -Exudate Type Serosanguineous Yellow/Green Yellow/Green -Wound Margin Distinct, Distinct, Distinct, Outline Outline Outline Attached Attached Attached -Granulation Amt Large (67-100%) Medium (34-66%) Medium (34-66%) -Granulation Quality Red Red -Slough/Fibrin Yes Yes -Necrosis Amt Medium (34-66%) -Necrotic Tissue Type Adherent Slough Adherent Slough -Texture (Coretta-wound Skin Appearance) Assessed, Assessed Assessed Localized Edema -Moisture (Coretta-wound Skin Appearance) Assessed, Assessed, Assessed, Maceration, Maceration Maceration Weeping -Color (Coretta-wound Skin Appearance) Assessed, Assessed Assessed, Erythema Erythema -Temperature (Coretta-wound Skin No Abnormality No Abnormality No Abnormality Appearance) (Pt Warm) (Pt Warm) (Pt Warm) -Tenderness on Palpation (Coretta-wound No No Skin Appearance) -Ulcer Cleansing Rinsed/ Rinsed/ Soap and Water Irrigated with Irrigated with Saline Saline -Foul Odor after Cleansing No No No -Anesthetic Used 5% Lidocaine 5% Lidocaine 4% Lidocaine Gel Gel Solution Right Calf (cm) 48.8 44.7 43.5 Right Ankle (cm) 26.5 24.5 23.7 Point of Measurement (cm from the distal 44.5 point) Left Calf (cm) 47.8 48.0 Point of measurement (cm from the medial 27.3 instep) Left Ankle (cm) 23.3 12.5 WC - Nurse 2 - General Ulcer CM Notes Start: 07/15/23 09:28 Freq: Status: Active Protocol: Activity Type Activity Date Activity User E-sign Co-sign Detail Recorded Client Recorded Date Recorded By Document 07/15/23 09:53 DS [id number] 07/15/23 09:55 DS Document 07/22/23 09:34 [id number] 07/22/23 09:39 JF Document 07/29/23 11:35 JF [id number] 07/29/23 11:39 JF 07/15/23 07/22/23 07/29/23 09:53 09:34 11:35 Wound Center Nurse 2 #3 LT DISTAL LE -Time 09:34 -Correct Patient No -Correct Side, Site, Position No -Correct Procedure No -Procedure Performed No -Post Debridement (cm) - Length 0 -Post Debridement (cm) - Width 0 -Post Debridement (cm) - Depth 0 -Total Square (Post) (cm) 0 -Area of Debridement (cm) - Length 0 -Area of Debridement (cm) - Width 0 -Total Square (Area) (cm) 0 -Tunneling No -Undermining/Tunneling No -Circular Undermining No -Wound/Ulcer Outcome Healed- Epithelialized -Ulcer Cleansing Rinsed/ Irrigated with Saline -Foul Odor after Cleansing No -Bioengineered Tissue No #2 LT MED LE -Time 09:54 09:35 11:37 -Correct Patient Yes Yes Yes -Correct Side, Site, Position Yes Yes Yes -Correct Procedure Yes Yes Yes -Procedure Performed Yes Yes Yes -Type of Procedure Debridement Debridement Debridement -Clinical Debridement Subcutaneous Subcutaneous Subcutaneous -Tissue Removed Subcutaneous Subcutaneous Subcutaneous -Post Debridement (cm) - Length 4.5 3.4 3.1 -Post Debridement (cm) - Width 4.5 4.0 3.6 -Post Debridement (cm) - Depth 0.1 0.1 0.1 -Total Square (Post) (cm) 20.25 13.60 11.16 -Area of Debridement (cm) - Length 4.5 3.4 3.1 -Area of Debridement (cm) - Width 4.5 4.0 3.6 -Total Square (Area) (cm) 20.25 13.60 11.16 -Tunneling No No No -Undermining/Tunneling No No No -Circular Undermining No No No -Wound/Ulcer Outcome Not Healed Not Healed Not Healed -Ulcer Cleansing Rinsed/ Rinsed/ Rinsed/ Irrigated with Irrigated with Irrigated with Saline Saline Saline -Foul Odor after Cleansing No No -Bioengineered Tissue No No -Bleeding Controlled with Pressure Pressure Pressure -Treatment Response Procedure Procedure Procedure Tolerated Well Tolerated Well Tolerated Well -Offloading No No -Debridement - Subq, 1st 20sq cm Yes Yes Yes Pain Scale: 0-10 Numeric Is Patient Pain Free? Yes Yes Yes - Nurse 3 - General Ulcer D/C NN Start: 07/15/23 09:28 Freq: Status: Active Protocol: Activity Type Activity Date Activity User E-sign Co-sign Detail Recorded Client Recorded Date Recorded By Document 07/22/23 09:53 wound center 07/22/23 09:54 GM Document 07/29/23 11:49 [facility] 07/29/23 11:50 GM 07/22/23 07/29/23 09:53 11:49 Wound Care Center Nurse 3 #2 LT MED LE -Ulcer Cleansing Not Cleansed -Foul Odor after Cleansing No -Primary Dressing Applied Optilok 6.5x10, Promogran Dorina Matter -Other Dressing ATB OINTMENT -Primary Dressing Covered/Secured with Dry Gauze,Dry Dry Gauze & Gauze & Roll Roll Gauze, Gauze,Secured Secured with with Tape Tape -Optilok 6.5x10 1 -Promogran Dorina Matter 1 BLE -Multi-Layered Wrap Application Multi-Layer Comp - Bilat ($ ) Right -Lotion applied to leg before No compression wrap -Tubular Bandage Single Layer -Size of Tubigrip Used Size F -Size F ($) 1 Left -Lotion applied to leg before No compression wrap -Tubular Bandage Single Layer -Size of Tubigrip Used Size F -Size F ($) 1 Pain Scale: 0-10 Numeric Is Patient Pain Free? Yes Yes Teaching: Wound Center Dressing Your Wound -Person Taught Patient,Family -Teaching Method Discussion, Demonstration -Response to teaching Verbalize understanding, Reinforcement needed WC - Visit Discharge Discharge Condition Stable Stable Ambulatory Status Ambulatory, Ambulatory Walker Transportation Private Auto Private Auto Medication Reconcilliation completed & No provided to patient/care provider Clinical Summary of Care Provided Yes Yes Assessment/Plan Assessment/Plan (1) Non-pressure chronic ulcer of other part of left lower leg with fat layer exposed: CODE(S): L97.822 - Non-pressure chronic ulcer of other part of left lower leg with fat layer exposed PLAN: Patient was examined and evaluated. All findings were discussed with the patient. All questions were answered to the patient's satisfaction. Excisional debridement down to and including subcutaneous tissue with a number 5 mm dermal curette to the left anterior leg without incident. Predebridement was 3.0 x 3.5 x 0.1 cm. Postdebridement measurement is 3.1 x 3.6 x 0.1 cm. Left lo wer extremities were cleaned and patted dry. Moist Dorina was applied to full- thickness ulceration followed by bilateral 3M compression wraps. We will begin authorization through the patient's insurance for amniotic skin graft substitute to the full-thickness ulceration of the left lower extremity as this will aid in a speedy recovery and help with the patient's wound heal. Follow-up at the wound care center with Dr. Dominguez in 1 week. (2) Other specified peripheral vascular diseases: CODE(S): I73.89 - Other specified peripheral vascular diseases PLAN: The patient's venous study show evidence of valvular incompetence at the level of the accessory saphenous veins in the right proximal calf. There is evidence of incompetence to the accessory saphenous vein to the left proximal calf. Deep veins in the distal left calf were not visualized due to the presence of bandages. The patient's arterial studies show evidence of triphasic pulses bilaterally. The right TBI is 1.05, the right JESSICA is 1.26. The left TBI 0.96, left JESSICA is 1.38.
== END 2023-07-31 23:59 | disposition home or self-care (01) ==
LOC: WC 11:15
PROVIDERS: PCP Family Medicine; Referring Provider Family Medicine; Visit Provider Podiatrist Foot & Ankle Surgery
DX: E11.51 Type 2 diabetes mellitus with diabetic peripheral angiopathy without gangrene (principal); L97.822 Non-pressure chronic ulcer of other part of left lower leg with fat layer exposed; G20.A1 Parkinson's disease without dyskinesia, without mention of fluctuations; E11.59 Type 2 diabetes mellitus with other circulatory complications; E11.65 Type 2 diabetes mellitus with hyperglycemia; E11.42 Type 2 diabetes mellitus with diabetic polyneuropathy; Z79.4 Long term (current) use of insulin; I87.2 Venous insufficiency (chronic) (peripheral); E78.5 Hyperlipidemia, unspecified; R60.0 Localized edema; E66.9 Obesity, unspecified; Z68.36 Body mass index [BMI] 36.0-36.9, adult; R32 Unspecified urinary incontinence; Z79.899 Other long term (current) drug therapy; Z79.84 Long term (current) use of oral hypoglycemic drugs; I73.89 Other specified peripheral vascular diseases; I89.0 Lymphedema, not elsewhere classified
CPT/HCPCS: 11042; 29581; 87070; 87075; 87077; 87186; 87205; 93923; 93970

== ENCOUNTER 2023-08-18 10:30 | Outpatient (RCR) | payer MEDICARE, SELFPAY ==
--- NOTE | 2023-06-08 14:04 | HP.PTEVAL ---
Patient's Visit Information Visit Information Visit Information: DEEPA ABRAHAM is a 72 year old M referred to Physical Therapy by ONEIDA WRIGHT with a diagnosis of PD w/o dyskinesia and fluctuating manifestations. Date of Evaluation: 06/08/23 Physical Therapist: Angie Malloy MPT Visit Plan Frequency: 2x /Week Duration: 2 Months Plan: 2X/ week for 8 weeks for LE strength, sit to stand (weight shift FW), gait training (bigger step length), balance and general mobility with HEP HEP: LAQ, seated heel and toe raises, sit to stand Subjective Subjective: He was dx about 6 years ago with PD and he is taking PD meds. He struggles to get out of a chair and is SOB walking with his rollator back to the treatment area. He has pain today in his R knee. His R leg is swollen and his Dr knows it and says to wait and see what happens. His is present with him today. The Dr told him to use his rollator. He was in TCU for 22 days at [facility] due to a fall. He is walking better than he was. Today is a really bad day. He fell out of his office chair last week and had to call the squad again. He has no steps at home. He has not driven since [facility]. He had some in home therapy after the TCU stay. He sleeps in a recliner. He has a lift chair. Pain R knee pain: Pain Intensity (Out of 10): 6 Objective Objective: Sit to stand: needs min to mod A and verbal cues to be able to get up from the chair. Needs more than one attempt at times and needs heavy use of B UE's to get out of the chair. Gait: uses a rollator heavily to walk and has decrease step length with the R leg compared to the L LE MMT: R hip flex 10.4 and L 10.6 R knee ext 10.3 and L 11.6 R knee flex 10.3 and L 10.5 Standing heel and toe raises: difficult and does not get full ROM and has to use his UE's sitting opp arm and leg: struggles to get to opp arm and leg Balance/Special Test Scores Lower Extremity Functional Score: 19 Goals Goal 1:: I HEP Goal Time Frame: 6-8 Weeks Goal 2:: Increase LE strength (at time of the eval: LE MMT: R hip flex 10.4 and L 10.6 R knee ext 10.3 and L 11.6 R knee flex 10.3 and L 10.5). Goal Time Frame: 6-8 Weeks Goal 3:: Be able to sit to stand with B UE's on first attempt with good weight shift FW Goal Time Frame: 6-8 Weeks Goal 4:: Be able to perform X 10 opp arm and leg in sitting without messing up Goal Time Frame: 6-8 Weeks Rehabilitation Potential Rehabilitation Potential: Good Anticipated Interventions Patient/Client Instruction: Educate patient on: Condition and Plan of Care For the Purpose of:: To decrease pain, To increase ROM, To improve nutrient delivery to tissue, To improve muscle performance and motor function, To improve ability to perform ADL's, To increase tolerance to activity/condition/position, To improve performance and independence with ADL's, To decrease level of supervision to perform tasks, To improve ability of physical actions for home/community/work/leisure, To improve gait and locomotor functions, To improve health of tissue, To decrease soft tissue restriction, To increase flexibility/ROM, To improve endurance, To improve balance and To improve safety with gait Therapeutic Exercise to Include: Strength training, Power training, Endurance training, Balance training, Postural training, Flexibilty training, Gait and locomotor training, Neuromotor development, Active ROM and Dynamic Lumbar Stabilization For the Purpose of:: To decrease pain, To decrease swelling/inflammation, To increase ROM, To improve nutrient delivery to tissue, To increase oxygenation perfusion, To improve muscle performance and motor function, To increase tolerance to activity/condition/position, To improve performance and independence with ADL's, To decrease level of supervision to perform tasks, To improve ability of physical actions for home/community/work/leisure, To improve gait and locomotor functions, To improve health of tissue, To decrease soft tissue restriction, To increase flexibility/ROM, To improve endurance, To improve balance and To improve safety with gait Functional Training to Include: Gait training For the Purpose of:: To improve gait and locomotor functions and To improve safety with gait Text: Thank you for the opportunity to evaluate your patient. For Medicare and Medicare HMO plans, please review the plan of care and approve it. It will need to be FAXED BACK to us at [phone] for Medicare purposes. For Medicare only, by signing this I certify the plan of care. Please let me know if there are questions or concerns regarding this plan of care. Physician Signature: Date:
--- NOTE | 2023-07-15 12:04 | HP.PTREVAL ---
Re-Evaluation Intro: ONEIDA WRIGHT, It has been my pleasure to treat DEEPA ABRAHAM over the last 10 visits for PD w/o dyskinesia and fluctuating manifestations. Please see the progress note below for an update on the physical therapy plan of care! Subjective Subjective: Pt reports that he just came from the wound center because his legs are seeping and they think that he might have some kind of infection so they are doing tests. Pt still wants to come to PT and get better. Pt late getting to PT. Pt thinks that therapy is helping at times when he feels good. Pt feels that he might have a little better mobility than he did before. He has not been doing any exercises at home due to his leg soreness. Objective Objective/Function: sit to stand: on 3rd attempt using B UE's but able to get up to more erect posture with rollator in front Sitting opp arm and leg...hurts legs too much today LE MMT: R hip flex 11.4 and L 10.9 R knee ext 10.8 and L 8.6 (wound on vigil) R knee flex 11.3 and L 9.8 (wound on vigil). Plan Plan Plan: 2X/ week for 8 weeks for LE strength, sit to stand (weight shift FW), gait training (bigger step length), balance and general mobility with HEP HEP: LAQ, seated heel and toe raises, sit to stand Balance/Gait/Functional tests Balance/Special Test Scores Lower Extremity Functional Score: 28 Goals Goals Goal 1:: I HEP Goal Time Frame: 6-8 Weeks Goal 2:: Increase LE strength (at time of the eval: LE MMT: R hip flex 10.4 and L 10.6 R knee ext 10.3 and L 11.6 R knee flex 10.3 and L 10.5). Goal Time Frame: 6-8 Weeks Goal Progress: Progressing Goal 3:: Be able to sit to stand with B UE's on first attempt with good weight shift FW Goal Time Frame: 6-8 Weeks Goal 4:: Be able to perform X 10 opp arm and leg in sitting without messing up Goal Time Frame: 6-8 Weeks Anticipated Interventions Anticipated Interventions Patient/Client Instruction: Educate patient on: Condition and Plan of Care For the Purpose of:: To decrease pain, To increase ROM, To improve nutrient delivery to tissue, To improve muscle performance and motor function, To improve ability to perform ADL's, To increase tolerance to activity/condition/position, To improve performance and independence with ADL's, To decrease level of supervision to perform tasks, To improve ability of physical actions for home/community/work/leisure, To improve gait and locomotor functions, To improve health of tissue, To decrease soft tissue restriction, To increase flexibility/ROM, To improve endurance, To improve balance and To improve safety with gait Therapeutic Exercise to Include: Strength training, Power training, Endurance training, Balance training, Postural training, Flexibilty training, Gait and locomotor training, Neuromotor development, Active ROM and Dynamic Lumbar Stabilization For the Purpose of:: To decrease pain, To decrease swelling/inflammation, To increase ROM, To improve nutrient delivery to tissue, To increase oxygenation perfusion, To improve muscle performance and motor function, To increase tolerance to activity/condition/position, To improve performance and independence with ADL's, To decrease level of supervision to perform tasks, To improve ability of physical actions for home/community/work/leisure, To improve gait and locomotor functions, To improve health of tissue, To decrease soft tissue restriction, To increase flexibility/ROM, To improve endurance, To improve balance and To improve safety with gait Functional Training to Include: Gait training For the Purpose of:: To improve gait and locomotor functions and To improve safety with gait Re-Evaluation Ending Re-evaluation ending: Please do not hesitate to contact me at [phone] by phone or if you have questions or concerns regarding this new plan of care! Sincerely, RACHAEL Zhang
--- NOTE | 2023-08-18 13:25 | HP.PTREVAL ---
Re-Evaluation Intro: ONEIDA WRIGHT, It has been my pleasure to treat DEEPA ABRAHAM over the last 16 visits for PD w/o dyskinesia and fluctuating manifestations. Please see the progress note below for an update on the physical therapy plan of care! Subjective Subjective: Pt had a fall out of bed at a motel and the squad came and picked him up. Somedays his legs feel better and somedays they feel worse. He goes to the wound center each week. He is not taking his water pill because he was sick to his stomach last week. He has not started those back up. Therapy has helped him to walk better and he walked out to the car with the cane. He sees his PD Dr lenny because they changed his meds (gave him another pill) a little bit. He is having trouble holding his urine and sees the Dr on the about that. He is looking into a place that can help him with some of his dressing and nursing issues. They are looking at a place today. He still struggles to get out of a chair. Objective Objective/Function: Seated opp arm and leg X 10 ( modified with LAQ instead of hip flexion due to not able to do hip flexion motion today) Sit to stand: 2 X 5 with B arms to get out of the chair (3/5 times on first attempt). LE MMT: R hip flex 11.1 and L 10.9 R knee ext 10.3 and L 11.6 R knee flex 10.3 and L 10.5). Plan Plan Plan: 2X/ week for 8 weeks for LE strength, sit to stand (weight shift FW), gait training (bigger step length), balance and general mobility with HEP Balance/Gait/Functional tests Balance/Special Test Scores Lower Extremity Functional Score: 33 Goals Goals Goal 1:: I HEP Goal Time Frame: 6-8 Weeks Goal Progress: Progressing Goal 2:: Increase LE strength (at time of the eval: LE MMT: R hip flex 10.4 and L 10.6 R knee ext 10.3 and L 11.6 R knee flex 10.3 and L 10.5). Goal Time Frame: 6-8 Weeks Goal Progress: Progressing Goal 3:: Be able to sit to stand with B UE's on first attempt with good weight shift FW Goal Time Frame: 6-8 Weeks Goal Progress: Progressing Goal 4:: Be able to perform X 10 opp arm and leg in sitting without messing up Goal Time Frame: 6-8 Weeks Goal Progress: Goal Met Anticipated Interventions Anticipated Interventions Patient/Client Instruction: Educate patient on: Condition and Plan of Care For the Purpose of:: To decrease pain, To increase ROM, To improve nutrient delivery to tissue, To improve muscle performance and motor function, To improve ability to perform ADL's, To increase tolerance to activity/condition/position, To improve performance and independence with ADL's, To decrease level of supervision to perform tasks, To improve ability of physical actions for home/community/work/leisure, To improve gait and locomotor functions, To improve health of tissue, To decrease soft tissue restriction, To increase flexibility/ROM, To improve endurance, To improve balance and To improve safety with gait Therapeutic Exercise to Include: Strength training, Power training, Endurance training, Balance training, Postural training, Flexibilty training, Gait and locomotor training, Neuromotor development, Active ROM and Dynamic Lumbar Stabilization For the Purpose of:: To decrease pain, To decrease swelling/inflammation, To increase ROM, To improve nutrient delivery to tissue, To increase oxygenation perfusion, To improve muscle performance and motor function, To increase tolerance to activity/condition/position, To improve performance and independence with ADL's, To decrease level of supervision to perform tasks, To improve ability of physical actions for home/community/work/leisure, To improve gait and locomotor functions, To improve health of tissue, To decrease soft tissue restriction, To increase flexibility/ROM, To improve endurance, To improve balance and To improve safety with gait Functional Training to Include: Gait training For the Purpose of:: To improve gait and locomotor functions and To improve safety with gait Re-Evaluation Ending Re-evaluation ending: Please do not hesitate to contact me at [phone] by phone or if you have questions or concerns regarding this new plan of care! Sincerely, Angie Malloy, MPT
== END 2023-08-18 19:00 | disposition home or self-care (01) ==
LOC: PT 10:30
PROVIDERS: PCP Family Medicine
DX: G20.A2 Parkinson's disease without dyskinesia, with fluctuations (principal)
CPT/HCPCS: 97110; 97112; 97162; 97530

== ENCOUNTER 2023-08-26 09:45 | Outpatient (RCR) | payer MEDICARE, SELFPAY ==
[2023-08-01 01:20] VITALS: BP 169/87; PULSE 91; RESP 18; TEMP 36; BMI 29.4
[2023-08-05 13:15] VITALS: RESP 18; BMI 29.4
--- NOTE | 2023-08-05 13:54 | PCM.WC.PN ---
History of Present Illness Date of Service: 08/05/23 Chief Complaint: Venous stasis ulceration of the right pretibial area History of Wound: This is an obese 73-year-old diabetic male who presented with a venous stasis ulceration on the right pretibial area. The ulceration has been present for approximately 2 to 3 weeks. However, the patient has had similar occurrences in the past. He has had previous episodes whereby blisters have spontaneously occurred on his distal lower extremities, subsequently erupting into small open wounds. The patient suffers from Parkinson's disease. He is obese, with a BMI of 36.1. His activity is very limited based upon his Parkinson's disease and prior lower extremity fractures. 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 He sleeps in a recliner, with his lower extremities in a dependent position. He ambulates in very limited fashion using a cane. He denies a history of thrombophlebitis. Subjective Subjective Mr. Silva is a 73-year-old diabetic male presenting to the wound care center today for evaluation of full-thickness ulceration to the left leg. He admits to being approved for amniotic skin graft substitute. His blood sugars under control. Denies trauma. Denies constitutional symptoms. No other pedal complaints at this time. Objective Data Objective Data Vital Signs: Vital Signs Temp Pulse Resp BP O2 Del Method 96.8 F L 91 18 169/87 H Room Air 08/01/23 01:20 08/01/23 01:20 08/05/23 13:15 08/01/23 01:20 08/05/23 13:15 Oxygen Delivery Method Room Air Weight: 98.43 kg Body Mass Index (BMI) 29.4 Physical Exam Narrative Vascular: DP and PT pulses are faintly palpable secondary to edema. +1 pitting edema appreciated bilateral lower extremity. Blanchable erythema appreciated to the bilateral lower extremity. Evidence of venous insufficiency with hemosiderin deposits. Skin temperature great is warm to warm from proximal ankle to distal digits with no focal increase. Neurological: Light touch intact. Protective station is diminished. Dermatological: Full-thickness ulceration to the anterior left leg measuring 2.7 x 3.2 x 0.1 cm. Wound base is fibrogranular nature with no sign of infection. No evidence of serous drainage. Evidence of +1 pitting edema appreciated bilateral lower extremity with hemosiderin deposits. Toenails 1 through 5 within normal limits. Both spaces 1 through 4 are clean dry and intact. Excisional debridement down to and including subcutaneous tissue with a number 5 mm dermal curette to the left anterior leg without incident. Predebridement was 2.6 x 3.1 x 0.1 cm. Postdebridement measurement is 2.7 x 3.2 x 0.1 cm. EpiFix mesh 4.0 x 4.5 cm was applied to the left full-thickness ulceration with 100% use. First application. The graft site was free and clear of any infection. The wound/skin graft substitute was dressed with nonadherent bandage secured in place with Steri-Strips followed by bolster dressing as well as a single layer Tubigrip. Musculoskeletal: Muscle strength is 5 out of 5 in all quadrants. No pain on palpation to the full-thickness ulceration to the left leg. No pain with calf pression. Debridement Note Debridement Note Debridement Free Text: Excisional debridement down to and including subcutaneous tissue with a number 5 mm dermal curette to the left anterior leg without incident. Predebridement was 2.6 x 3.1 x 0.1 cm. Postdebridement measurement is 2.7 x 3.2 x 0.1 cm. EpiFix mesh 4.0 x 4.5 cm was applied to the left full-thickness ulceration with 100% use. First application. The graft site was free and clear of any infection. The wound/skin graft substitute was dressed with nonadherent bandage secured in place with Steri-Strips followed by bolster dressing as well as a single layer Tubigrip. Post-Debridement Measurements and Additional Note: Post-Debridement Measurements/Treatment - Nurse 1 - General Ulcer Assessment Start: 08/05/23 13:15 Freq: Status: Active Protocol: [email or web address] Activity Type Activity Date Activity User E-sign Co-sign Detail Recorded Client Recorded Date Recorded By Document 08/05/23 13:15 KW Wound center 08/05/23 13:29 KW 08/05/23 13:15 - Today's Visit Information Type of service Follow-up Visit (Physician/LAB ANIMAL TECHNICIAN ) Arrival Mode Ambulatory Patient Identification Verified (Name & No ) Height and Weight Body Mass Index (BMI) 29.4 BMI Classification Overweight Vital Signs Respiratory Rate (12-18) 18 Respiratory rate source Observation Oxygen Delivery Method Room Air History Since Last Visit- (Skip if this is Patient's initial visit) Have you changed medications since your No last visit? Any new allergies or adverse reactions No Had a fall/change in ADL's that may No increase risk of falls Signs or symptoms of abuse and/or No neglect since last visit Have you been in the hospital since your No last visit? Has dressing in place as prescribed Yes Has offloadiing in place as prescribed N/A Experienced any changes in pain level or No management Left Footwear Regular Shoe Right Footwear Regular Shoe Pain Scale: 0-10 Numeric Is Patient Pain Free? Yes WC - Nurse 1 - General Ulcer Measurement Start: 08/05/23 13:15 Freq: Status: Active Protocol: Activity Type Activity Date Activity User E-sign Co-sign Detail Recorded Client Recorded Date Recorded By Document 08/05/23 13:15 KW Wound center 08/05/23 13:29 KW 08/05/23 13:15 Wound Center Nurse 1 #2 LT MED LE -Current Size (cm) - Length 3 -Current Size (cm) - Width 3.3 -Current Size (cm) - Depth 0.1 -Total Square Cm 9.9 -Exudate Amt Medium -Exudate Type Yellow/Green -Wound Margin Distinct, Outline Attached -Granulation Amt Small (1-33%) -Granulation Quality [place] -Necrosis Amt Large (67-100%) -Necrotic Tissue Type Adherent Slough -Texture (Coretta-wound Skin Appearance) Assessed -Moisture (Coretta-wound Skin Appearance) Assessed -Color (Coretta-wound Skin Appearance) Assessed -Temperature (Coretta-wound Skin No Abnormality Appearance) (Pt Warm) -Tenderness on Palpation (Coretta-wound No Skin Appearance) -Ulcer Cleansing Soap and Water -Foul Odor after Cleansing No -Anesthetic Used 5% Lidocaine Gel Right Calf (cm) 40.8 Right Ankle (cm) 23 Left Calf (cm) 41 Left Ankle (cm) 23 WC - Nurse 2 - General Ulcer CM Notes Start: 08/05/23 13:15 Freq: Status: Active Protocol: Activity Type Activity Date Activity User E-sign Co-sign Detail Recorded Client Recorded Date Recorded By Document 08/05/23 13:51 [id number] 08/05/23 13:53 JF 08/05/23 13:51 Wound Center Nurse 2 #2 LT MED LE -Time 13:51 -Correct Patient Yes -Correct Side, Site, Position Yes -Correct Procedure Yes -Procedure Performed Yes -Type of Procedure Debridement -Clinical Debridement Subcutaneous -Tissue Removed Subcutaneous -Post Debridement (cm) - Length 2.7 -Post Debridement (cm) - Width 3.2 -Post Debridement (cm) - Depth 0.1 -Total Square (Post) (cm) 8.64 -Area of Debridement (cm) - Length 2.7 -Area of Debridement (cm) - Width 3.2 -Total Square (Area) (cm) 8.64 -Tunneling No -Undermining/Tunneling No -Circular Undermining No -Wound/Ulcer Outcome Not Healed -Ulcer Cleansing Rinsed/ Irrigated with Saline -Foul Odor after Cleansing No -Bioengineered Tissue Yes -Type of Bioengineered Tissue Epifix Mesh -Expiration Date 03/02/28 -Product Lot Number [id number] -Percent Used 100 -Lot number of Saline Used [id number] -Bleeding Controlled with Pressure -Treatment Response Procedure Tolerated Well -Offloading No -Debridement - Subq, 1st 20sq cm No -Apply Skin Sub - 1st 25 sq cm - Legs 1 -Epifix Mesh (per sq cm) 11 Pain Scale: 0-10 Numeric Is Patient Pain Free? 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 All findings were discussed with the patient. All questions were answered to the patient's satisfaction. Excisional debridement down to and including subcutaneous tissue with a number 5 mm dermal curette to the left anterior leg without incident. Predebridement was 2.6 x 3.1 x 0.1 cm. Postdebridement measurement is 2.7 x 3.2 x 0.1 cm. EpiFix mesh 4.0 x 4.5 cm was applied to the left full-thickness ulceration with 100% use. First application. The graft site was free and clear of any infection. The wound/skin graft substitute was dressed with nonadherent bandage secured in place with Steri-Strips followed by bolster dressing as well as a single layer Tubigrip. Follow-up at the wound care center with nurse practitioner Katelyn in [address] Dominguez 1 week after. (2) Other specified peripheral vascular diseases: CODE(S): I73.89 - Other specified peripheral vascular diseases
[2023-08-12 10:43] VITALS: BP 153/73; PULSE 94; RESP 18; TEMP 36.1; BMI 29.4
--- NOTE | 2023-08-12 12:01 | PCM.WC.PN ---
History of Present Illness Date of Service: 08/12/23 Chief Complaint: Venous stasis ulceration of the right pretibial area History of Wound: This is an obese 73-year-old diabetic male who presented with a venous stasis ulceration on the right pretibial area. The ulceration has been present for approximately 2 to 3 weeks. However, the patient has had similar occurrences in the past. He has had previous episodes whereby blisters have spontaneously occurred on his distal lower extremities, subsequently erupting into small open wounds. The patient suffers from Parkinson's disease. He is obese, with a BMI of 36.1. His activity is very limited based upon his Parkinson's disease and prior lower extremity fractures. 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 He sleeps in a recliner, with his lower extremities in a dependent position. He ambulates in very limited fashion using a cane. He denies a history of thrombophlebitis. Progress of Wound: Courtesy visit for Dr. Dominguez patient was getting EpiFix #2 applied. Measurements were smaller from last week. Tolerated the EpiFix quite well. No sign of infection no redness no pain he does complain that he can feel burning at times which I said is good that means you are getting feeling back. Subjective Subjective Patient just complains of burning at the wound and some itching which I said is all healing processes wound itself looks very good and is smaller. Patient approves of continuing using EpiFix Objective Data Objective Data EpiFix #2 mesh applied to wound base and covered tolerated well Vital Signs: Vital Signs Temp Pulse Resp BP O2 Del Method 97.0 F L 94 18 153/73 H Room Air 08/12/23 10:43 08/12/23 10:43 08/12/23 10:43 08/12/23 10:43 08/12/23 10:43 Oxygen Delivery Method Room Air Weight: 217 lb Body Mass Index (BMI) 29.4 Lab / Micro Data Attestation: I reviewed the patient's lab results. Physical Exam Narrative Vascular: DP and PT pulses are faintly palpable secondary to edema. +1 pitting edema appreciated bilateral lower extremity. Blanchable erythema appreciated to the bilateral lower extremity. Evidence of venous insufficiency with hemosiderin deposits. Skin temperature great is warm to warm from proximal ankle to distal digits with no focal increase. Neurological: Light touch intact. Protective station is diminished. Dermatological: Full-thickness ulceration to the anterior left leg measuring 3.4 x 4.0 x 0.1 cm. Wound base is fibrogranular nature with no sign of infection. No evidence of serous drainage. Evidence of +1 pitting edema appreciated bilateral lower extremity with hemosiderin deposits. Toenails 1 through 5 within normal limits. Both spaces 1 through 4 are clean dry and intact. Excisional debridement down to and including subcutaneous tissue with a number 5 mm dermal curette to the left anterior leg without incident. Predebridement was 3.2 x 3.9 x 0.1 cm. Postdebridement measurement is 3.4 x 4.0 x 0.1 cm. Musculoskeletal: Muscle strength is 5 out of 5 in all quadrants. No pain on palpation to the full-thickness ulceration to the left leg. No pain with calf pression. Const alert General Appearance: cooperative HEENT normocephalic Eyes PERRL and EOMs intact bilaterally Neck supple, no JVD and no carotid bruits Resp normal respiratory effort, normal air movement and clear to auscultation bilaterally Cardio regular rate and regular rhythm GI normal to inspection, nondistended, normoactive bowel sounds, non-tender and non-distended Extremity normal capillary refill General Extremity: Negative for edema Skin no rashes or lesions noted General Skin Exam: no breakdown Psych affect normal Appearance: appropriate Debridement Note Debridement Note No debridement was completed: No debridement was completed today Post-Debridement Measurements and Additional Note: Post-Debridement Measurements/Treatment WC - Nurse 1 - General Ulcer Assessment Start: 08/05/23 13:15 Freq: Status: Active Protocol: ALICE Activity Type Activity Date Activity User E-sign Co-sign Detail Recorded Client Recorded Date Recorded By Document 08/05/23 13:15 KW Wound center 08/05/23 13:29 KW Document 08/12/23 10:43 GM 08/12/23 10:45 GM 08/05/23 08/12/23 13:15 10:43 - Today's Visit Information Type of service Follow-up Visit Follow-up Visit (Physician/PAYMENT PROCESSOR (Physician/PAYMENT PROCESSOR ) ) Arrival Mode Ambulatory Ambulatory, Walker Transfer Assistance Manual Accompanied by Patient Identification Verified (Name & No Yes ) Height and Weight Body Mass Index (BMI) 29.4 29.4 BMI Classification Overweight Overweight Vital Signs Temperature (97.8 F-99.1 F) 97.0 F L Temperature Source Temporal Pulse Rate (60-100) 94 Pulse Location Monitor Respiratory Rate (12-18) 18 18 Respiratory rate source Observation Observation Oxygen Delivery Method Room Air Room Air Blood Pressure (90/60-120/80) 153/73 H Blood Pressure Mean (mm Hg) 99 Source Monitor Position Sitting Blood Pressure Location Left Arm History Since Last Visit- (Skip if this is Patient's initial visit) Have you changed medications since your No No last visit? Any new allergies or adverse reactions No No Had a fall/change in ADL's that may No No increase risk of falls Signs or symptoms of abuse and/or No No neglect since last visit Have you been in the hospital since your No No last visit? Has dressing in place as prescribed Yes Yes Has compression in place as prescribed Yes Has offloadiing in place as prescribed N/A N/A Experienced any changes in pain level or No No management Left Footwear Regular Shoe Regular Shoe Right Footwear Regular Shoe Regular Shoe Pain Scale: 0-10 Numeric Is Patient Pain Free? Yes Yes - Nurse 1 - General Ulcer Measurement Start: 08/05/23 13:15 Freq: Status: Active Protocol: Activity Type Activity Date Activity User E-sign Co-sign Detail Recorded Client Recorded Date Recorded By Document 08/05/23 13:15 Wound center 08/05/23 13:29 Document 08/12/23 10:43 [facility] 08/12/23 10:45 08/05/23 08/12/23 13:15 10:43 Wound Center Nurse 1 #2 LT MED LE -Current Size (cm) - Length 3 3.0 -Current Size (cm) - Width 3.3 2.0 -Current Size (cm) - Depth 0.1 0.1 -Total Square Cm 9.9 6.00 -Photo Taken No -Epithelialization Small 1-33% -Tunneling No -Undermining/Tunneling No -Circular Undermining No -Exudate Amt Medium Medium -Exudate Type Yellow/Green Yellow/Green -Wound Margin Distinct, Distinct, Outline Outline Attached Attached -Granulation Amt Small (1-33%) Medium (34-66%) -Granulation Quality [place] -Slough/Fibrin Yes -Necrosis Amt Large (67-100%) Medium (34-66%) -Necrotic Tissue Type Adherent Slough Adherent Slough -Texture (Coretta-wound Skin Appearance) Assessed Assessed -Moisture (Coretta-wound Skin Appearance) Assessed Assessed -Color (Coretta-wound Skin Appearance) Assessed Assessed -Temperature (Coretta-wound Skin No Abnormality No Abnormality Appearance) (Pt Warm) (Pt Warm) -Tenderness on Palpation (Coretta-wound No No Skin Appearance) -Ulcer Cleansing Soap and Water Soap and Water -Foul Odor after Cleansing No No -Anesthetic Used 5% Lidocaine 5% Lidocaine Gel Gel Right Calf (cm) 40.8 Right Ankle (cm) 23 Left Calf (cm) 41 45 Left Ankle (cm) 23 27 WC - Nurse 2 - General Ulcer CM Notes Start: 08/05/23 13:15 Freq: Status: Active Protocol: Activity Type Activity Date Activity User E-sign Co-sign Detail Recorded Client Recorded Date Recorded By Document 08/05/23 13:51 [id number] 08/05/23 13:53 Document 08/12/23 11:16 BMF [id number] 08/12/23 11:22 BMF Edit Result 08/12/23 11:16 BMF (1) [id number] 08/12/23 11:55 BMF (1) #2 LT MED LE - Type of Bioengineered Tissue => Epifix Mesh 08/05/23 08/12/23 13:51 11:16 Wound Center Nurse 2 #2 LT MED LE -Time 13:51 11:17 -Correct Patient Yes Yes -Correct Side, Site, Position Yes Yes -Correct Procedure Yes Yes -Procedure Performed Yes Yes -Type of Procedure Debridement Debridement -Clinical Debridement Subcutaneous Subcutaneous -Tissue Removed Subcutaneous Subcutaneous -Post Debridement (cm) - Length 2.7 2.3 -Post Debridement (cm) - Width 3.2 2.7 -Post Debridement (cm) - Depth 0.1 0.1 -Total Square (Post) (cm) 8.64 6.21 -Area of Debridement (cm) - Length 2.7 2.3 -Area of Debridement (cm) - Width 3.2 2.7 -Total Square (Area) (cm) 8.64 6.21 -Tunneling No No -Undermining/Tunneling No No -Circular Undermining No No -Wound/Ulcer Outcome Not Healed Not Healed -Ulcer Cleansing Rinsed/ Rinsed/ Irrigated with Irrigated with Saline Saline -Foul Odor after Cleansing No No -Bioengineered Tissue Yes No -Type of Bioengineered Tissue Epifix Mesh Epifix Mesh -Expiration Date 03/02/28 03/02/28 -Product Lot Number [id number] -Percent Used 100 100 -Lot number of Saline Used [id number] -Bleeding Controlled with Pressure Pressure -Treatment Response Procedure Procedure Tolerated Well Tolerated Well -Offloading No -Debridement - Subq, 1st 20sq cm No No -Apply Skin Sub - 1st 25 sq cm - Legs 1 1 -Epifix Mesh (per sq cm) 11 11 Pain Scale: 0-10 Numeric Is Patient Pain Free? Yes Yes - Nurse 3 - General Ulcer D/C NN Start: 08/05/23 13:15 Freq: Status: Active Protocol: Activity Type Activity Date Activity User E-sign Co-sign Detail Recorded Client Recorded Date Recorded By Document 08/05/23 14:01 [facility] [id number] 08/05/23 14:02 [facility] Document 08/12/23 11:36 [facility] [id number] 08/12/23 11:38 [facility] 08/05/23 08/12/23 14:01 11:36 Wound Care Center Nurse 3 #2 LT MED LE -Primary Dressing Applied Aquacel Extra -Other Dressing EPIMESH EPIMESH, -Primary Dressing Covered/Secured with Dry Gauze & Dry Gauze & Roll Gauze, Roll Gauze, Secured with Secured with Tape Tape -Other Covering HYDROGEL -Aquacel Extra 1 BLE -Tubular Bandage Single Layer Single Layer -Size of Tubigrip Used Size E Size E -Size E ($) 1 1 Treatment Response Procedure Procedure Tolerated Well Tolerated Well Pain Scale: 0-10 Numeric Is Patient Pain Free? Yes Yes - Visit Discharge Discharge Condition Stable Stable Ambulatory Status Ambulatory, Ambulatory, Walker Walker Transportation Private Auto Private Auto Accompanied by Assessment/Plan Assessment/Plan (1) Non-pressure chronic ulcer of other part of left lower leg with fat layer exposed: CODE(S): L97.822 - Non-pressure chronic ulcer of other part of left lower leg with fat layer exposed PLAN: Patient was examined and evaluated. All findings were discussed with the patient. All questions were answered to the patient's satisfaction EpiFix #2 applied to left lower leg covered with Arpin and Steri-Strips with Aquacel extra over top to keep it from getting infected. Patient tolerated well Follow-up in [address] Dominguez (2) Other specified peripheral vascular diseases: CODE(S): I73.89 - Other specified peripheral vascular diseases PLAN: The patient's venous study show evidence of valvular incompetence at the level of the accessory saphenous veins in the right proximal calf. There is evidence of incompetence to the accessory saphenous vein to the left proximal calf. Deep veins in the distal left calf were not visualized due to the presence of bandages. The patient's arterial studies show evidence of triphasic pulses bilaterally. The right TBI is 1.05, the right JESSICA is 1.26. The left TBI 0.96, left JESSICA is 1.38.
[2023-08-19 09:28] VITALS: BP 145/79; PULSE 74; RESP 18; TEMP 35.9; BMI 29.4
--- NOTE | 2023-08-19 11:34 | PN.PCM_ITS ---
History of Present Illness Date of Service: 08/19/23 Chief Complaint: Venous stasis ulceration of the right pretibial area History of Wound: This is an obese 73-year-old diabetic male who presented with a venous stasis ulceration on the right pretibial area. The ulceration has been present for approximately 2 to 3 weeks. However, the patient has had similar occurrences in the past. He has had previous episodes whereby blisters have spontaneously occurred on his distal lower extremities, subsequently erupting into small open wounds. The patient suffers from Parkinson's disease. He is obese, with a BMI of 36.1. His activity is very limited based upon his Parkinson's disease and prior lower extremity fractures. 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 He sleeps in a recliner, with his lower extremities in a dependent position. He ambulates in very li mited fashion using a cane. He denies a history of thrombophlebitis. Progress of Wound: Courtesy visit for Dr. Dominguez patient was getting EpiFix #2 applied. Measurements were smaller from last week. Tolerated the EpiFix quite well. No sign of infection no redness no pain he does complain that he can feel burning at times which I said is good that means you are getting feeling back. Subjective Subjective Mr. Silva is a 73-year-old diabetic male presenting to the wound care center today for evaluation of full-thickness ulceration to the left leg. He admits to being approved for amniotic skin graft substitute. His blood sugars under control. Denies trauma. Denies constitutional symptoms. No other pedal complaints at this time. Objective Data Objective Data Vital Signs: Vital Signs Temp Pulse Resp BP O2 Del Method 96.7 F L 74 18 145/79 H Room Air 08/19/23 09:28 08/19/23 09:28 08/19/23 09:28 08/19/23 09:28 08/19/23 09:28 Oxygen Delivery Method Room Air Weight: 98.43 kg Body Mass Index (BMI) 29.4 Physical Exam Narrative Vascular: DP and PT pulses are faintly palpable secondary to edema. +1 pitting edema appreciated bilateral lower extremity. Blanchable erythema appreciated to the bilateral lower extremity. Evidence of venous insufficiency with hemosiderin deposits. Skin temperature great is warm to warm from proximal ankle to distal digits with no focal increase. Neurological: Light touch intact. Protective station is diminished. Dermatological: Full-thickness ulceration to the anterior left leg measuring 3.4 x 2.5 x 0.1 cm. Wound base is fibrogranular nature with no sign of infection. No evidence of serous drainage. Evidence of +1 pitting edema appreciated bilateral lower extremity with hemosiderin deposits. Toenails 1 through 5 within normal limits. Both spaces 1 through 4 are clean dry and intact. Excisional debridement down to and including subcutaneous tissue with a number 5 mm dermal curette to the left anterior leg without incident. Predebridement was 3.2 x 2.4 x 0.1 cm. Postdebridement measurement is 3.4 x 2.5 x 0.1 cm. EpiFix mesh 4.0 x 4.5 cm was applied to the left full-thickness ulceration with 100% use. Third application. The graft site was free and clear of any infection. The wound/skin graft substitute was dressed with nonadherent bandage secured in place with Steri-Strips followed by bolster dressing as well as a single layer Tubigrip. Musculoskeletal: Muscle strength is 5 out of 5 in all quadrants. No pain on palpation to the full-thickness ulceration to the left leg. No pain with calf pression. Debridement Note Debridement Note Debridement Free Text: Excisional debridement down to and including subcutaneous tissue with a number 5 mm dermal curette to the left anterior leg without incident. Predebridement was 3.2 x 2.4 x 0.1 cm. Postdebridement measurement is 3.4 x 2.5 x 0.1 cm. EpiFix mesh 4.0 x 4.5 cm was applied to the left full-thickness ulceration with 100% use. Third application. The graft site was free and clear of any infection. The wound/skin graft substitute was dressed with nonadherent bandage secured in place with Steri-Strips followed by bolster dressing as well as a single layer Tubigrip. Post-Debridement Measurements and Additional Note: Post-Debridement Measurements/Treatment WC - Nurse 1 - General Ulcer Assessment Start: 08/05/23 13:15 Freq: Status: Active Protocol: SANTIAGO.LOWEXT Activity Type Activity Date Activity User E-sign Co-sign Detail Recorded Client Recorded Date Recorded By Document 08/05/23 13:15 [facility] Wound center 08/05/23 13:29 KW Document 08/12/23 10:43 GM 08/12/23 10:45 Document 08/19/23 09:28 [facility] 08/19/23 09:37 08/05/23 08/12/23 08/19/23 13:15 10:43 09:28 - Today's Visit Information Type of service Follow-up Visit Follow-up Visit Follow-up Visit (Physician/CORRECTIONAL CLASSIFICATION COUNSELOR (Physician/CORRECTIONAL CLASSIFICATION COUNSELOR (Physician/CORRECTIONAL CLASSIFICATION COUNSELOR ) ) ) Arrival Mode Ambulatory Ambulatory, Ambulatory, Walker Walker Transfer Assistance Manual Accompanied by Patient Identification Verified (Name & No Yes Yes ) Height and Weight Body Mass Index (BMI) 29.4 29.4 29.4 BMI Classification Overweight Overweight Overweight Vital Signs Temperature (97.8 F-99.1 F) 97.0 F L 96.7 F L Temperature Source Temporal Temporal Pulse Rate (60-100) 94 74 Pulse Location Monitor Monitor Respiratory Rate (12-18) 18 18 18 Respiratory rate source Observation Observation Observation Oxygen Delivery Method Room Air Room Air Room Air Blood Pressure (90/60-120/80) 153/73 H 145/79 H Blood Pressure Mean (mm Hg) 99 101 Source Monitor Monitor Position Sitting Sitting Blood Pressure Location Left Arm Right Arm History Since Last Visit- (Skip if this is Patient's initial visit) Have you changed medications since your No No No last visit? Any new allergies or adverse reactions No No No Had a fall/change in ADL's that may No No Yes increase risk of falls Signs or symptoms of abuse and/or No No No neglect since last visit Have you been in the hospital since your No No No last visit? Has dressing in place as prescribed Yes Yes Yes Has compression in place as prescribed Yes Yes Has offloadiing in place as prescribed N/A N/A N/A Experienced any changes in pain level or No No No management Left Footwear Regular Shoe Regular Shoe Regular Shoe Right Footwear Regular Shoe Regular Shoe Regular Shoe Pain Scale: 0-10 Numeric Is Patient Pain Free? Yes Yes Yes - Nurse 1 - General Ulcer Measurement Start: 08/05/23 13:15 Freq: Status: Active Protocol: Activity Type Activity Date Activity User E-sign Co-sign Detail Recorded Client Recorded Date Recorded By Document 08/05/23 13:15 [facility] Wound center 08/05/23 13:29 KW Document 08/12/23 10:43 GM 08/12/23 10:45 Document 08/19/23 09:28 [facility] 08/19/23 09:37 08/05/23 08/12/23 08/19/23 13:15 10:43 09:28 Wound Center Nurse 1 #2 LT MED LE -Current Size (cm) - Length 3 3.0 1.9 -Current Size (cm) - Width 3.3 2.0 2.2 -Current Size (cm) - Depth 0.1 0.1 0.1 -Total Square Cm 9.9 6.00 4.18 -Photo Taken No No -Epithelialization Small 1-33% Small 1-33% -Tunneling No No -Undermining/Tunneling No No -Circular Undermining No No -Exudate Amt Medium Medium Small -Exudate Type Yellow/Green Yellow/Green Yellow/Green -Wound Margin Distinct, Distinct, Distinct, Outline Outline Outline Attached Attached Attached -Granulation Amt Small (1-33%) Medium (34-66%) Medium (34-66%) -Granulation Quality [place] -Slough/Fibrin Yes Yes -Necrosis Amt Large (67-100%) Medium (34-66%) Small (1-33%) -Necrotic Tissue Type Adherent Slough Adherent Slough -Texture (Coretta-wound Skin Appearance) Assessed Assessed Assessed -Moisture (Coretta-wound Skin Appearance) Assessed Assessed Assessed -Color (Coretta-wound Skin Appearance) Assessed Assessed Assessed -Temperature (Coretta-wound Skin No Abnormality No Abnormality No Abnormality Appearance) (Pt Warm) (Pt Warm) (Pt Warm) -Tenderness on Palpation (Coretta-wound No No Skin Appearance) -Ulcer Cleansing Soap and Water Soap and Water Soap and Water -Foul Odor after Cleansing No No No -Anesthetic Used 5% Lidocaine 5% Lidocaine 5% Lidocaine Gel Gel Gel Lower Limb Edema Present No Right Calf (cm) 40.8 Right Ankle (cm) 23 Left Calf (cm) 41 45 44.0 Left Ankle (cm) 23 27 27.0 WC - Nurse 2 - General Ulcer CM Notes Start: 08/05/23 13:15 Freq: Status: Active Protocol: Activity Type Activity Date Activity User E-sign Co-sign Detail Recorded Client Recorded Date Recorded By Document 08/05/23 13:51 JF [id number] 08/05/23 13:53 JF Document 08/12/23 11:16 [facility] 1605-12-09 08/12/23 11:22 BM Edit Result 08/12/23 11:16 BMF (1) [id number] 08/12/23 11:55 BMF Document 08/19/23 09:53 JF [id number] 08/19/23 09:55 JF (1) #2 LT MED LE - Type of Bioengineered Tissue => Epifix Mesh 08/05/23 08/12/23 08/19/23 13:51 11:16 09:53 Wound Center Nurse 2 #2 LT MED LE -Time 13:51 11:17 09:54 -Correct Patient Yes Yes Yes -Correct Side, Site, Position Yes Yes Yes -Correct Procedure Yes Yes Yes -Procedure Performed Yes Yes Yes -Type of Procedure Debridement Debridement Debridement -Clinical Debridement Subcutaneous Subcutaneous Subcutaneous -Tissue Removed Subcutaneous Subcutaneous Subcutaneous -Post Debridement (cm) - Length 2.7 2.3 3.4 -Post Debridement (cm) - Width 3.2 2.7 2.5 -Post Debridement (cm) - Depth 0.1 0.1 0.1 -Total Square (Post) (cm) 8.64 6.21 8.50 -Area of Debridement (cm) - Length 2.7 2.3 3.4 -Area of Debridement (cm) - Width 3.2 2.7 2.5 -Total Square (Area) (cm) 8.64 6.21 8.50 -Tunneling No No No -Undermining/Tunneling No No No -Circular Undermining No No No -Wound/Ulcer Outcome Not Healed Not Healed Not Healed -Ulcer Cleansing Rinsed/ Rinsed/ Rinsed/ Irrigated with Irrigated with Irrigated with Saline Saline Saline -Foul Odor after Cleansing No No No -Bioengineered Tissue Yes No Yes -Type of Bioengineered Tissue Epifix Mesh Epifix Mesh Epifix Mesh -Expiration Date 03/02/28 03/02/28 03/02/28 -Product Lot Number [id number] -Percent Used 100 100 100 -Lot number of Saline Used [id number] -Bleeding Controlled with Pressure Pressure Pressure -Treatment Response Procedure Procedure Procedure Tolerated Well Tolerated Well Tolerated Well -Offloading No No -Debridement - Subq, 1st 20sq cm No No No -Apply Skin Sub - 1st 25 sq cm - Legs 1 1 1 -Epifix Mesh (per sq cm) 11 11 11 Pain Scale: 0-10 Numeric Is Patient Pain Free? Yes Yes Yes - Nurse 3 - General Ulcer D/C NN Start: 08/05/23 13:15 Freq: Status: Active Protocol: Activity Type Activity Date Activity User E-sign Co-sign Detail Recorded Client Recorded Date Recorded By Document 08/05/23 14:01 [facility] 1606-02-08 08/05/23 14:02 [facility] Document 08/12/23 11:36 [facility] 1605-12-09 08/12/23 11:38 [facility] Document 08/19/23 10:02 [id number] 08/19/23 10:03 08/05/23 08/12/23 08/19/23 14:01 11:36 10:02 Wound Care Center Nurse 3 #2 LT MED LE -Ulcer Cleansing Rinsed/ Irrigated with Saline -Foul Odor after Cleansing No -Primary Dressing Applied Aquacel Extra -Other Dressing EPIMESH EPIMESH, -Primary Dressing Covered/Secured with Dry Gauze & Dry Gauze & Dry Gauze & Roll Gauze, Roll Gauze, Roll Gauze, Secured with Secured with Secured with Tape Tape Tape -Other Covering HYDROGEL -Aquacel Extra 1 BLE -Tubular Bandage Single Layer Single Layer -Size of Tubigrip Used Size E Size E -Size E ($) 1 1 Left -Tubular Bandage Single Layer -Size of Tubigrip Used Size E -Size E ($) 1 Treatment Response Procedure Procedure Tolerated Well Tolerated Well Pain Scale: 0-10 Numeric Is Patient Pain Free? Yes Yes Yes - Visit Discharge Discharge Condition Stable Stable Stable Ambulatory Status Ambulatory, Ambulatory, Ambulatory Walker Walker Transportation Private Auto Private Auto Private Auto Accompanied by Medication Reconcilliation completed & Yes provided to patient/care provider Clinical Summary of Care Provided Yes Assessment/Plan Assessment/Plan (1) Non-pressure chronic ulcer of other part of left lower leg with fat layer exposed: CODE(S): L97.822 - Non-pressure chronic ulcer of other part of left lower leg with fat layer exposed PLAN: Patient was examined and evaluated. All findings were discussed with the patient. All questions were answered to the patient's satisfaction. Excisional debridement down to and including subcutaneous tissue with a number 5 mm dermal curette to the left anterior leg without incident. Predebridement was 3.2 x 2.4 x 0.1 cm. Postdebridement measurement is 3.4 x 2.5 x 0.1 cm. EpiFix mesh 4.0 x 4.5 cm was applied to the left full-thickness ulceration with 100% use. Third application. The graft site was free and clear of any infection. The wound/skin graft substitute was dressed with nonadherent bandage secured in place with Steri-Strips followed by bolster dressing as well as a single layer Tubigrip. Follow-up at the wound care center with Dr. Dominguez in 1 week. (2) Other specified peripheral vascular diseases: CODE(S): I73.89 - Other specified peripheral vascular diseases
[2023-08-26 09:52] VITALS: BMI 29.4
--- NOTE | 2023-08-26 10:12 | PN.PCM_ITS ---
History of Present Illness Date of Service: 08/26/23 Chief Complaint: Venous stasis ulceration of the right pretibial area History of Wound: This is an obese 73-year-old diabetic male who presented with a venous stasis ulceration on the right pretibial area. The ulceration has been present for approximately 2 to 3 weeks. However, the patient has had similar occurrences in the past. He has had previous episodes whereby blisters have spontaneously occurred on his distal lower extremities, subsequently erupting into small open wounds. The patient suffers from Parkinson's disease. He is obese, with a BMI of 36.1. His activity is very limited based upon his Parkinson's disease and prior lower extremity fractures. 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 He sleeps in a recliner, with his lower extremities in a dependent position. He ambulates in very li mited fashion using a cane. He denies a history of thrombophlebitis. Subjective Subjective Mr. Silva is a 73-year-old diabetic male presenting to the wound care center today for evaluation of full-thickness ulceration to the left leg. He admits to being approved for amniotic skin graft substitute. His blood sugars under control. Denies trauma. Denies constitutional symptoms. No other pedal complaints at this time. Objective Data Objective Data Vital Signs: Vital Signs Temp Pulse Resp BP O2 Del Method 96.7 F L 74 18 145/79 H Room Air 08/19/23 09:28 08/19/23 09:28 08/19/23 09:28 08/19/23 09:28 08/19/23 09:28 Oxygen Delivery Method Room Air Weight: 98.43 kg Body Mass Index (BMI) 29.4 Physical Exam Narrative Vascular: DP and PT pulses are faintly palpable secondary to edema. +1 pitting edema appreciated bilateral lower extremity. Blanchable erythema appreciated to the bilateral lower extremity. Evidence of venous insufficiency with hemosiderin deposits. Skin temperature great is warm to warm from proximal ankle to distal digits with no focal increase. Neurological: Light touch intact. Protective station is diminished. Dermatological: Full-thickness ulceration to the anterior left leg measuring 1.8 x 2.5 x 0.1 cm. Wound base is fibrogranular nature with no sign of infection. No evidence of serous drainage. Evidence of +1 pitting edema appreciated bilateral lower extremity with hemosiderin deposits. Toenails 1 through 5 within normal limits. Both spaces 1 through 4 are clean dry and intact. Evidence of fluid-filled blisters to the dorsal aspect of the left leg. Stable no sign of infection. Excisional debridement down to and including subcutaneous tissue with a number 5 mm dermal curette to the left anterior leg without incident. Predebridement was 1.5 x 2.4 x 0.1 cm. Postdebridement measurement is 1.8 x 2.5 x 0.1 cm. EpiFix 2.0 x 2.0 cm was applied to the left full-thickness ulceration with 100% use. Fourth application. The graft site was free and clear of any infection. The wound/skin graft substitute was dressed with nonadherent bandage secured in place with Steri-Strips followed by bolster dressing as well as a single layer Tubigrip. Musculoskeletal: Muscle strength is 5 out of 5 in all quadrants. No pain on palpation to the full-thickness ulceration to the left leg. No pain with calf pression. Debridement Note Debridement Note Debridement Free Text: Excisional debridement down to and including subcutaneous tissue with a number 5 mm dermal curette to the left anterior leg without incident. Predebridement was 1.5 x 2.4 x 0.1 cm. Postdebridement measurement is 1.8 x 2.5 x 0.1 cm. EpiFix 2.0 x 2.0 cm was applied to the left full-thickness ulceration with 100% use. Fourth application. The graft site was free and clear of any infection. The wound/skin graft substitute was dressed with nonadherent bandage secured in place with Steri-Strips followed by bolster dressing as well as a single layer Tubigrip. Post-Debridement Measurements and Additional Note: Post-Debridement Measurements/Treatment SANTIAGO - Nurse 1 - General Ulcer Assessment Start: 08/05/23 13:15 Freq: Status: Active Protocol: ALICE Activity Type Activity Date Activity User E-sign Co-sign Detail Recorded Client Recorded Date Recorded By Document 08/05/23 13:15 KW Wound center 08/05/23 13:29 KW Document 08/12/23 10:43 GM wc 08/12/23 10:45 GM Document 08/19/23 09:28 GM 08/19/23 09:37 GM Document 08/26/23 09:52 KW ; 08/26/23 09:55 KW 08/05/23 08/12/23 08/19/23 13:15 10:43 09:28 WC - Today's Visit Information Type of service Follow-up Visit Follow-up Visit Follow-up Visit (Physician/ANALYTICAL DATA MINER (Physician/ANALYTICAL DATA MINER (Physician/ANALYTICAL DATA MINER ) ) ) Arrival Mode Ambulatory Ambulatory, Ambulatory, Walker Walker Transfer Assistance Manual Accompanied by Patient Identification Verified (Name & No Yes Yes ) Height and Weight Body Mass Index (BMI) 29.4 29.4 29.4 BMI Classification Overweight Overweight Overweight Vital Signs Temperature (97.8 F-99.1 F) 97.0 F L 96.7 F L Temperature Source Temporal Temporal Pulse Rate (60-100) 94 74 Pulse Location Monitor Monitor Respiratory Rate (12-18) 18 18 18 Respiratory rate source Observation Observation Observation Oxygen Delivery Method Room Air Room Air Room Air Blood Pressure (90/60-120/80) 153/73 H 145/79 H Blood Pressure Mean (mm Hg) 99 101 Source Monitor Monitor Position Sitting Sitting Blood Pressure Location Left Arm Right Arm History Since Last Visit- (Skip if this is Patient's initial visit) Have you changed medications since your No No No last visit? Any new allergies or adverse reactions No No No Had a fall/change in ADL's that may No No Yes increase risk of falls Signs or symptoms of abuse and/or No No No neglect since last visit Have you been in the hospital since your No No No last visit? Has dressing in place as prescribed Yes Yes Yes Has compression in place as prescribed Yes Yes Has offloadiing in place as prescribed N/A N/A N/A Experienced any changes in pain level or No No No management Left Footwear Regular Shoe Regular Shoe Regular Shoe Right Footwear Regular Shoe Regular Shoe Regular Shoe Pain Scale: 0-10 Numeric Is Patient Pain Free? Yes Yes Yes 08/26/23 09:52 WC - Today's Visit Information Type of service Follow-up Visit (Physician/ANALYTICAL DATA MINER ) Arrival Mode Ambulatory, Walker Transfer Assistance Accompanied by Patient Identification Verified (Name & Yes ) Height and Weight Body Mass Index (BMI) 29.4 BMI Classification Overweight Vital Signs Temperature (97.8 F-99.1 F) Temperature Source Pulse Rate (60-100) Pulse Location Respiratory Rate (12-18) Respiratory rate source Oxygen Delivery Method Blood Pressure (90/60-120/80) Blood Pressure Mean (mm Hg) Source Position Blood Pressure Location History Since Last Visit- (Skip if this is Patient's initial visit) Have you changed medications since your No last visit? Any new allergies or adverse reactions No Had a fall/change in ADL's that may No increase risk of falls Signs or symptoms of abuse and/or No neglect since last visit Have you been in the hospital since your No last visit? Has dressing in place as prescribed Yes Has compression in place as prescribed Yes Has offloadiing in place as prescribed N/A Experienced any changes in pain level or No management Left Footwear Regular Shoe Right Footwear Regular Shoe Pain Scale: 0-10 Numeric Is Patient Pain Free? No WC - Nurse 1 - General Ulcer Measurement Start: 08/05/23 13:15 Freq: Status: Active Protocol: Activity Type Activity Date Activity User E-sign Co-sign Detail Recorded Client Recorded Date Recorded By Document 08/05/23 13:15 KW Wound center 08/05/23 13:29 KW Document 08/12/23 10:43 GM 08/12/23 10:45 GM Document 08/19/23 09:28 [facility] 08/19/23 09:37 GM Document 08/26/23 09:52 KW ; 08/26/23 09:55 KW 08/05/23 08/12/23 08/19/23 13:15 10:43 09:28 Wound Center Nurse 1 #2 LT MED LE -Current Size (cm) - Length 3 3.0 1.9 -Current Size (cm) - Width 3.3 2.0 2.2 -Current Size (cm) - Depth 0.1 0.1 0.1 -Total Square Cm 9.9 6.00 4.18 -Date of Last Picture (Recall this field) -Photo Taken No No -Epithelialization Small 1-33% Small 1-33% -Tunneling No No -Undermining/Tunneling No No -Circular Undermining No No -Exudate Amt Medium Medium Small -Exudate Type Yellow/Green Yellow/Green Yellow/Green -Wound Margin Distinct, Distinct, Distinct, Outline Outline Outline Attached Attached Attached -Granulation Amt Small (1-33%) Medium (34-66%) Medium (34-66%) -Granulation Quality Verlot Verlot Verlot -Slough/Fibrin Yes Yes -Necrosis Amt Large (67-100%) Medium (34-66%) Small (1-33%) -Necrotic Tissue Type Adherent Slough Adherent Slough -Texture (Coretta-wound Skin Appearance) Assessed Assessed Assessed -Moisture (Coretta-wound Skin Appearance) Assessed Assessed Assessed -Color (Coretta-wound Skin Appearance) Assessed Assessed Assessed -Temperature (Coretta-wound Skin No Abnormality No Abnormality No Abnormality Appearance) (Pt Warm) (Pt Warm) (Pt Warm) -Tenderness on Palpation (Coretta-wound No No Skin Appearance) -Ulcer Cleansing Soap and Water Soap and Water Soap and Water -Foul Odor after Cleansing No No No -Anesthetic Used 5% Lidocaine 5% Lidocaine 5% Lidocaine Gel Gel Gel Lower Limb Edema Present No Right Calf (cm) 40.8 Right Ankle (cm) 23 Left Calf (cm) 41 45 44.0 Left Ankle (cm) 23 27 27.0 08/26/23 09:52 Wound Center Nurse 1 #2 LT MED LE -Current Size (cm) - Length 1.5 -Current Size (cm) - Width 3 -Current Size (cm) - Depth 0.1 -Total Square Cm 4.5 -Date of Last Picture (Recall this 08/26/23 field) -Photo Taken -Epithelialization -Tunneling -Undermining/Tunneling -Circular Undermining -Exudate Amt Medium -Exudate Type Serosanguineous -Wound Margin Distinct, Outline Attached -Granulation Amt Small (1-33%) -Granulation Quality Verlot -Slough/Fibrin -Necrosis Amt Large (67-100%) -Necrotic Tissue Type Adherent Slough -Texture (Coretta-wound Skin Appearance) Assessed -Moisture (Coretta-wound Skin Appearance) Assessed -Color (Coretta-wound Skin Appearance) Assessed -Temperature (Coretta-wound Skin No Abnormality Appearance) (Pt Warm) -Tenderness on Palpation (Coretta-wound No Skin Appearance) -Ulcer Cleansing Soap and Water -Foul Odor after Cleansing No -Anesthetic Used 5% Lidocaine Gel Lower Limb Edema Present Right Calf (cm) Right Ankle (cm) Left Calf (cm) Left Ankle (cm) WC - Nurse 2 - General Ulcer CM Notes Start: 08/05/23 13:15 Freq: Status: Active Protocol: Activity Type Activity Date Activity User E-sign Co-sign Detail Recorded Client Recorded Date Recorded By Document 08/05/23 13:51 [id number] 08/05/23 13:53 JF Document 08/12/23 11:16 [facility] [id number] 08/12/23 11:22 [facility] Edit Result 08/12/23 11:16 [facility] (1) [id number] 08/12/23 11:55 BM Document 08/19/23 09:53 [id number] 08/19/23 09:55 (1) #2 LT MED LE - Type of Bioengineered Tissue => Epifix Mesh 08/05/23 08/12/23 08/19/23 13:51 11:16 09:53 Wound Center Nurse 2 #2 LT MED LE -Time 13:51 11:17 09:54 -Correct Patient Yes Yes Yes -Correct Side, Site, Position Yes Yes Yes -Correct Procedure Yes Yes Yes -Procedure Performed Yes Yes Yes -Type of Procedure Debridement Debridement Debridement -Clinical Debridement Subcutaneous Subcutaneous Subcutaneous -Tissue Removed Subcutaneous Subcutaneous Subcutaneous -Post Debridement (cm) - Length 2.7 2.3 3.4 -Post Debridement (cm) - Width 3.2 2.7 2.5 -Post Debridement (cm) - Depth 0.1 0.1 0.1 -Total Square (Post) (cm) 8.64 6.21 8.50 -Area of Debridement (cm) - Length 2.7 2.3 3.4 -Area of Debridement (cm) - Width 3.2 2.7 2.5 -Total Square (Area) (cm) 8.64 6.21 8.50 -Tunneling No No No -Undermining/Tunneling No No No -Circular Undermining No No No -Wound/Ulcer Outcome Not Healed Not Healed Not Healed -Ulcer Cleansing Rinsed/ Rinsed/ Rinsed/ Irrigated with Irrigated with Irrigated with Saline Saline Saline -Foul Odor after Cleansing No No No -Bioengineered Tissue Yes No Yes -Type of Bioengineered Tissue Epifix Mesh Epifix Mesh Epifix Mesh -Expiration Date 03/02/28 03/02/28 03/02/28 -Product Lot Number [id number] -Percent Used 100 100 100 -Lot number of Saline Used [id number] -Bleeding Controlled with Pressure Pressure Pressure -Treatment Response Procedure Procedure Procedure Tolerated Well Tolerated Well Tolerated Well -Offloading No No -Debridement - Subq, 1st 20sq cm No No No -Apply Skin Sub - 1st 25 sq cm - Legs 1 1 1 -Epifix Mesh (per sq cm) 11 11 11 Pain Scale: 0-10 Numeric Is Patient Pain Free? Yes Yes Yes - Nurse 3 - General Ulcer D/C NN Start: 08/05/23 13:15 Freq: Status: Active Protocol: Activity Type Activity Date Activity User E-sign Co-sign Detail Recorded Client Recorded Date Recorded By Document 08/05/23 14:01 [facility] [id number] 08/05/23 14:02 [facility] Document 08/12/23 11:36 [facility] 1605-12-09 08/12/23 11:38 [facility] Document 08/19/23 10:02 [id number] 08/19/23 10:03 08/05/23 08/12/23 08/19/23 14:01 11:36 10:02 Wound Care Center Nurse 3 #2 LT MED LE -Ulcer Cleansing Rinsed/ Irrigated with Saline -Foul Odor after Cleansing No -Primary Dressing Applied Aquacel Extra -Other Dressing EPIMESH EPIMESH, -Primary Dressing Covered/Secured with Dry Gauze & Dry Gauze & Dry Gauze & Roll Gauze, Roll Gauze, Roll Gauze, Secured with Secured with Secured with Tape Tape Tape -Other Covering HYDROGEL -Aquacel Extra 1 BLE -Tubular Bandage Single Layer Single Layer -Size of Tubigrip Used Size E Size E -Size E ($) 1 1 Left -Tubular Bandage Single Layer -Size of Tubigrip Used Size E -Size E ($) 1 Treatment Response Procedure Procedure Tolerated Well Tolerated Well Pain Scale: 0-10 Numeric Is Patient Pain Free? Yes Yes Yes - Visit Discharge Discharge Condition Stable Stable Stable Ambulatory Status Ambulatory, Ambulatory, Ambulatory Walker Walker Transportation Private Auto Private Auto Private Auto Accompanied by Medication Reconcilliation completed & Yes provided to patient/care provider Clinical Summary of Care Provided Yes Assessment/Plan Assessment/Plan (1) Non-pressure chronic ulcer of other part of left lower leg with fat layer exposed: CODE(S): L97.822 - Non-pressure chronic ulcer of other part of left lower leg with fat layer exposed PLAN: Patient was examined and evaluated. All findings were discussed with the patient. All questions were answered to the patient's satisfaction. Excisional debridement down to and including subcutaneous tissue with a number 5 mm dermal curette to the left anterior leg without incident. Predebridement was 1.5 x 2.4 x 0.1 cm. Postdebridement measurement is 1.8 x 2.5 x 0.1 cm. EpiFix 2.0 x 2.0 cm was applied to the left full-thickness ulceration with 100% use. Fourth application. The graft site was free and clear of any infection. The wound/skin graft substitute was dressed with nonadherent bandage secured in place with Steri-Strips followed by bolster dressing as well as a single layer Tubigrip. Patient also showed evidence of 2. Blisters anterior aspect of left leg. Pa tient shows evidence of retention of water to left lower extremity. Anesthesia was applied to the 2 blisters which were lanced with a #15 blade without incident. Skin was not deroofed. No culture was needed as there is no sign of infection. Patient will be placed on bilateral 3M wraps for continued edema control. Follow-up at the wound care center with Dr. Dominguez in 1 week. (2) Other specified peripheral vascular diseases: CODE(S): I73.89 - Other specified peripheral vascular diseases
== END 2023-08-30 23:59 | disposition home or self-care (01) ==
LOC: WC 09:45
PROVIDERS: PCP Family Medicine; Referring Provider Family Medicine; Visit Provider Podiatrist Foot & Ankle Surgery
DX: E11.622 Type 2 diabetes mellitus with other skin ulcer (principal); L97.822 Non-pressure chronic ulcer of other part of left lower leg with fat layer exposed; G20.A1 Parkinson's disease without dyskinesia, without mention of fluctuations; E11.51 Type 2 diabetes mellitus with diabetic peripheral angiopathy without gangrene; E11.59 Type 2 diabetes mellitus with other circulatory complications; I87.2 Venous insufficiency (chronic) (peripheral); E66.9 Obesity, unspecified; Z68.36 Body mass index [BMI] 36.0-36.9, adult
CPT/HCPCS: 15271; 29581; Q4186

== ENCOUNTER 2023-09-23 11:15 | Outpatient (RCR) | payer MEDICARE, SELFPAY ==
[2023-08-31 00:39] VITALS: BP 169/87; PULSE 91; RESP 18; TEMP 36; BMI 29.4
[2023-09-02 10:01] VITALS: BP 164/95; PULSE 96; RESP 18; TEMP 36.4; BMI 29.4
--- NOTE | 2023-09-02 10:41 | PCM.WC.PN ---
History of Present Illness Date of Service: 09/02/23 Chief Complaint: Venous stasis ulceration of the right pretibial area History of Wound: This is an obese 73-year-old diabetic male who presented with a venous stasis ulceration on the right pretibial area. The ulceration has been present for approximately 2 to 3 weeks. However, the patient has had similar occurrences in the past. He has had previous episodes whereby blisters have spontaneously occurred on his distal lower extremities, subsequently erupting into small open wounds. The patient suffers from Parkinson's disease. He is obese, with a BMI of 36.1. His activity is very limited based upon his Parkinson's disease and prior lower extremity fractures. 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 He sleeps in a recliner, with his lower extremities in a dependent position. He ambulates in very limited fashion using a cane. He denies a history of thrombophlebitis. Subjective Subjective Mr. Silva is a 73-year-old diabetic male presenting to the wound care center today for evaluation of full-thickness ulceration to the left leg. He admits to being approved for amniotic skin graft substitute. His blood sugars under control. Denies trauma. Denies constitutional symptoms. No other pedal complaints at this time. Objective Data Objective Data Vital Signs: Vital Signs Temp Pulse Resp BP O2 Del Method 97.6 F L 96 18 164/95 H Room Air 09/02/23 10:01 09/02/23 10:01 09/02/23 10:01 09/02/23 10:01 09/02/23 10:01 Oxygen Delivery Method Room Air Weight: 98.43 kg Body Mass Index (BMI) 29.4 Physical Exam Narrative Vascular: DP and PT pulses are faintly palpable secondary to edema. +1 pitting edema appreciated bilateral lower extremity. Blanchable erythema appreciated to the bilateral lower extremity. Evidence of venous insufficiency with hemosiderin deposits. Skin temperature great is warm to warm from proximal ankle to distal digits with no focal increase. Neurological: Light touch intact. Protective station is diminished. Dermatological: Full-thickness ulceration to the anterior left leg measuring 1.3 x 1.8 x 0.1 cm. Wound base is fibrogranular nature with no sign of infection. No evidence of serous drainage. Evidence of +1 pitting edema appreciated bilateral lower extremity with hemosiderin deposits. Toenails 1 through 5 within normal limits. Both spaces 1 through 4 are clean dry and intact. Evidence of fluid-filled blisters to the dorsal aspect of the left leg. Stable no sign of infection. Excisional debridement down to and including subcutaneous tissue with a number 5 mm dermal curette to the left anterior leg without incident. Predebridement was 1.1 x 1.6 x 0.1 cm. Postdebridement measurement is 1.3 x 1.8 x 0.1 cm. EpiFix 18 mm disc was applied to the left full-thickness ulceration with 100% use. Fifth application. The graft site was free and clear of any infection. The wound/skin graft substitute was dressed with nonadherent bandage secured in place with Steri-Strips followed by bolster dressing as well as a 3M compression wrap. Musculoskeletal: Muscle strength is 5 out of 5 in all quadrants. No pain on palpation to the full-thickness ulceration to the left leg. No pain with calf pression. Debridement Note Debridement Note Debridement Free Text: Excisional debridement down to and including subcutaneous tissue with a number 5 mm dermal curette to the left anterior leg without incident. Predebridement was 1.1 x 1.6 x 0.1 cm. Postdebridement measurement is 1.3 x 1.8 x 0.1 cm. EpiFix 18 mm disc was applied to the left full-thickness ulceration with 100% use. Fifth application. The graft site was free and clear of any infection. The wound/skin graft substitute was dressed with nonadherent bandage secured in place with Steri-Strips followed by bolster dressing as well as a 3M compression wrap. Post-Debridement Measurements and Additional Note: Post-Debridement Measurements/Treatment - Nurse 1 - General Ulcer Assessment Start: 09/02/23 09:58 Freq: Status: Active Protocol: [email or web address] Activity Type Activity Date Activity User E-sign Co-sign Detail Recorded Client Recorded Date Recorded By Document 09/02/23 10:01 KW ; 09/02/23 10:12 KW 09/02/23 10:01 - Today's Visit Information Type of service Follow-up Visit (Physician/FIELD SERVICES DIRECTOR ) Arrival Mode Ambulatory, Walker Accompanied by Patient Identification Verified (Name & Yes ) Height and Weight Body Mass Index (BMI) 29.4 BMI Classification Overweight Vital Signs Temperature (97.8 F-99.1 F) 97.6 F L Temperature Source Temporal Pulse Rate (60-100) 96 Pulse Location Monitor Respiratory Rate (12-18) 18 Respiratory rate source Observation Oxygen Delivery Method Room Air Blood Pressure (90/60-120/80) 164/95 H Blood Pressure Mean (mm Hg) 118 Source Monitor Position Semi-Fowlers Blood Pressure Location Left Arm History Since Last Visit- (Skip if this is Patient's initial visit) Have you changed medications since your No last visit? Any new allergies or adverse reactions No Had a fall/change in ADL's that may No increase risk of falls Signs or symptoms of abuse and/or No neglect since last visit Have you been in the hospital since your No last visit? Has dressing in place as prescribed Yes Has compression in place as prescribed Yes Has offloadiing in place as prescribed N/A Experienced any changes in pain level or No management Left Footwear Regular Shoe Right Footwear Regular Shoe Pain Scale: 0-10 Numeric Is Patient Pain Free? Yes WC - Nurse 1 - General Ulcer Measurement Start: 09/02/23 09:58 Freq: Status: Active Protocol: Activity Type Activity Date Activity User E-sign Co-sign Detail Recorded Client Recorded Date Recorded By Document 09/02/23 10:01 KW ; 09/02/23 10:12 KW 09/02/23 10:01 Wound Center Nurse 1 #5 lt lat le -Current Size (cm) - Length 2 -Current Size (cm) - Width 2 -Current Size (cm) - Depth 0.1 -Total Square Cm 4 -Exudate Amt None Present -Wound Margin Distinct, Outline Attached -Granulation Amt Large (67-100%) -Granulation Quality Red -Texture (Coretta-wound Skin Appearance) Assessed -Moisture (Coretta-wound Skin Appearance) Assessed -Color (Coretta-wound Skin Appearance) Assessed -Temperature (Coretta-wound Skin No Abnormality Appearance) (Pt Warm) -Ulcer Cleansing Soap and Water -Foul Odor after Cleansing No -Anesthetic Used 5% Lidocaine Gel #4 inf lt med le -Current Size (cm) - Length 1.6 -Current Size (cm) - Width 1.5 -Current Size (cm) - Depth 0.1 -Total Square Cm 2.40 -Exudate Amt Small -Exudate Type Serosanguineous -Wound Margin Distinct, Outline Attached -Granulation Amt Large (67-100%) -Granulation Quality Red -Texture (Coretta-wound Skin Appearance) Assessed -Moisture (Coretta-wound Skin Appearance) Assessed -Color (Coretta-wound Skin Appearance) Assessed -Temperature (Coretta-wound Skin No Abnormality Appearance) (Pt Warm) -Tenderness on Palpation (Coretta-wound No Skin Appearance) -Ulcer Cleansing Soap and Water -Foul Odor after Cleansing No -Anesthetic Used 5% Lidocaine Gel #2 LT MED LE -Current Size (cm) - Length 1.6 -Current Size (cm) - Width 2.3 -Current Size (cm) - Depth 0.1 -Total Square Cm 3.68 -Exudate Amt Small -Exudate Type Serosanguineous -Wound Margin Distinct, Outline Attached -Granulation Amt Small (1-33%) -Granulation Quality [place] -Necrotic Tissue Type Adherent Slough -Texture (Coretta-wound Skin Appearance) Assessed -Moisture (Coretta-wound Skin Appearance) Assessed -Color (Coretta-wound Skin Appearance) Assessed, Hemosiderin Staining -Temperature (Coretta-wound Skin No Abnormality Appearance) (Pt Warm) -Tenderness on Palpation (Coretta-wound No Skin Appearance) -Ulcer Cleansing Soap and Water -Foul Odor after Cleansing No -Anesthetic Used 5% Lidocaine Gel Right Calf (cm) 40 Right Ankle (cm) 23 Left Calf (cm) 42.5 Left Ankle (cm) 24.2 WC - Nurse 2 - General Ulcer CM Notes Start: 09/02/23 09:58 Freq: Status: Active Protocol: Activity Type Activity Date Activity User E-sign Co-sign Detail Recorded Client Recorded Date Recorded By Document 09/02/23 10:21 JF 0000 09/02/23 10:23 09/02/23 10:21 Wound Center Nurse 2 #5 lt lat le -Time 10:21 -Correct Patient No -Correct Side, Site, Position No -Correct Procedure No -Procedure Performed No -Wound/Ulcer Outcome Not Healed #4 inf lt med le -Correct Patient No -Correct Side, Site, Position No -Correct Procedure No -Procedure Performed No -Wound/Ulcer Outcome Not Healed #2 LT MED LE -Time 10:21 -Correct Patient Yes -Correct Side, Site, Position Yes -Correct Procedure Yes -Procedure Performed Yes -Type of Procedure Debridement -Clinical Debridement Subcutaneous -Tissue Removed Subcutaneous -Post Debridement (cm) - Length 1.3 -Post Debridement (cm) - Width 1.8 -Post Debridement (cm) - Depth 0.1 -Total Square (Post) (cm) 2.34 -Area of Debridement (cm) - Length 1.3 -Area of Debridement (cm) - Width 1.8 -Total Square (Area) (cm) 2.34 -Tunneling No -Undermining/Tunneling No -Circular Undermining No -Wound/Ulcer Outcome Not Healed -Ulcer Cleansing Rinsed/ Irrigated with Saline -Foul Odor after Cleansing No -Bioengineered Tissue Yes -Type of Bioengineered Tissue Epifix 18mm Disc -Expiration Date 03/02/28 -Product Lot Number [id number] -Percent Used 100 -Lot number of Saline Used [id number] -Bleeding Controlled with Pressure -Treatment Response Procedure Tolerated Well -Offloading No -Debridement - Open, 1st 20sq cm No -Debridement - Subq, 1st 20sq cm No -Apply Skin Sub - 1st 25 sq cm - Legs 1 -Epifix 18mm Disc 3 Pain Scale: 0-10 Numeric Is Patient Pain Free? Yes - Nurse 3 - General Ulcer D/C NN Start: 09/02/23 09:58 Freq: Status: Active Protocol: Activity Type Activity Date Activity User E-sign Co-sign Detail Recorded Client Recorded Date Recorded By Document 09/02/23 10:40 KW ; 09/02/23 10:41 KW 09/02/23 10:40 Wound Care Center Nurse 3 #5 lt lat le -Other Dressing xeroform #4 inf lt med le -Other Dressing xeroform #2 LT MED LE -Primary Dressing Applied Optilok 6.5x10 -Optilok 6.5x10 1 BLE -Multi-Layered Wrap Application Multi-Layer Comp - Bilat ($ ) Pain Scale: 0-10 Numeric Is Patient Pain Free? Yes - Visit Discharge Discharge Condition Stable Ambulatory Status Ambulatory, Walker Transportation Private Auto Medication Reconcilliation completed & No provided to patient/care provider Clinical Summary of Care Provided Yes Assessment/Plan Assessment/Plan (1) Non-pressure chronic ulcer of other part of left lower leg with fat layer exposed: CODE(S): L97.822 - Non-pressure chronic ulcer of other part of left lower leg with fat layer exposed PLAN: Patient was examined and evaluated. All findings were discussed with the patient. All questions were answered to the patient's satisfaction. Excisional debridement down to and including subcutaneous tissue with a number 5 mm dermal curette to the left anterior leg without incident. Predebridement was 1.1 x 1.6 x 0.1 cm. Postdebridement measurement is 1.3 x 1.8 x 0.1 cm. EpiFix 18 mm disc was applied to the left full-thickness ulceration with 100% use. Fifth application. The graft site was free and clear of any infection. The wound/skin graft substitute was dressed with nonadherent bandage secured in place with Steri-Strips followed by bolster dressing as well as a 3M compression wrap. Will begin authorization for CircAid's to the bilateral lower extremity. Patient educated to perform and continue strict blood sugar control. Follow-up at the wound care center with Dr. Dominguez in 1 week. (2) Other specified peripheral vascular diseases: CODE(S): I73.89 - Other specified peripheral vascular diseases (3) Chronic painful diabetic polyneuropathy: CODE(S): E11.42 - Type 2 diabetes mellitus with diabetic polyneuropathy
[2023-09-09 09:28] VITALS: BP 195/87; PULSE 96; RESP 18; TEMP 36.1; BMI 29.4
--- NOTE | 2023-09-09 11:18 | PN.PCM_ITS ---
History of Present Illness Date of Service: 09/09/23 Chief Complaint: Venous stasis ulceration of the right pretibial area History of Wound: This is an obese 73-year-old diabetic male who presented with a venous stasis ulceration on the right pretibial area. The ulceration has been present for approximately 2 to 3 weeks. However, the patient has had similar occurrences in the past. He has had previous episodes whereby blisters have spontaneously occurred on his distal lower extremities, subsequently erupting into small open wounds. The patient suffers from Parkinson's disease. He is obese, with a BMI of 36.1. His activity is very limited based upon his Parkinson's disease and prior lower extremity fractures. 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 He sleeps in a recliner, with his lower extremities in a dependent position. He ambulates in very li mited fashion using a cane. He denies a history of thrombophlebitis. Subjective Subjective Mr. Silva is a 73-year-old diabetic male presenting to the wound care center today for evaluation of full-thickness ulceration to the left leg. He admits to being approved for amniotic skin graft substitute. His blood sugars under control. Denies trauma. Denies constitutional symptoms. No other pedal complaints at this time. Objective Data Objective Data Vital Signs: Vital Signs Temp Pulse Resp BP O2 Del Method 97.0 F L 96 18 195/87 H Room Air 09/09/23 09:28 09/09/23 09:28 09/09/23 09:28 09/09/23 09:28 09/09/23 09:28 Oxygen Delivery Method Room Air Weight: 98.43 kg Body Mass Index (BMI) 29.4 Physical Exam Narrative Vascular: DP and PT pulses are faintly palpable secondary to edema. +1 pitting edema appreciated bilateral lower extremity. Blanchable erythema appreciated to the bilateral lower extremity. Evidence of venous insufficiency with hemosiderin deposits. Skin temperature great is warm to warm from proximal ankle to distal digits with no focal increase. Neurological: Light touch intact. Protective station is diminished. Dermatological: Full-thickness ulceration to the anterior left leg measuring 1.0 x 0.4 x 0.1 cm. Wound base is 100 send granular nature. Edema is improved. No drainage. No sign of infection. Excisional debridement down to and including subcutaneous tissue with a number 5 mm dermal curette to the left anterior leg without incident. Predebridement was eschar.. Postdebridement measurement is 1.0 x 0.4 x 0.1 cm. EpiFix 18 mm disc was applied to the left full-thickness ulceration with 100% use. Sixth application. The graft site was free and clear of any infection. The wound/skin graft substitute was dressed with nonadherent bandage secured in place with Steri-Strips followed by bolster dressing as well as a 3M compression wrap. Musculoskeletal: Muscle strength is 5 out of 5 in all quadrants. No pain on palpation to the full-thickness ulceration to the left leg. No pain with calf pression. Debridement Note Debridement Note Debridement Free Text: Excisional debridement down to and including subcutaneous tissue with a number 5 mm dermal curette to the left anterior leg without incident. Predebridement was eschar.. Postdebridement measurement is 1.0 x 0.4 x 0.1 cm. EpiFix 18 mm disc was applied to the left full-thickness ulceration with 100% use. Sixth application. The graft site was free and clear of any infection. The wound/skin graft substitute was dressed with nonadherent bandage secured in place with Steri-Strips followed by bolster dressing as well as a 3M compression wrap. Post-Debridement Measurements and Additional Note: Post-Debridement Measurements/Treatment - Nurse 1 - General Ulcer Assessment Start: 09/02/23 09:58 Freq: Status: Active Protocol: WC.LOWEXT Activity Type Activity Date Activity User E-sign Co-sign Detail Recorded Client Recorded Date Recorded By Document 09/02/23 10:01 KW ; 09/02/23 10:12 KW Document 09/09/23 09:28 KW k 09/09/23 09:37 KW 09/02/23 09/09/23 10:01 09:28 - Today's Visit Information Type of service Follow-up Visit (Physician/CLINICAL DATA MANAGEMENT DIRECTOR ) Arrival Mode Ambulatory, Walker Accompanied by Patient Identification Verified (Name & Yes ) Height and Weight Body Mass Index (BMI) 29.4 29.4 BMI Classification Overweight Overweight Vital Signs Temperature (97.8 F-99.1 F) 97.6 F L 97.0 F L Temperature Source Temporal Temporal Pulse Rate (60-100) 96 96 Pulse Location Monitor Monitor Respiratory Rate (12-18) 18 18 Respiratory rate source Observation Observation Oxygen Delivery Method Room Air Room Air Blood Pressure (90/60-120/80) 164/95 H 195/87 H Blood Pressure Mean (mm Hg) 118 123 Source Monitor Monitor Position Semi-Fowlers Semi-Fowlers Blood Pressure Location Left Arm Left Arm History Since Last Visit- (Skip if this is Patient's initial visit) Have you changed medications since your No No last visit? Any new allergies or adverse reactions No No Had a fall/change in ADL's that may No No increase risk of falls Signs or symptoms of abuse and/or No No neglect since last visit Have you been in the hospital since your No No last visit? Has dressing in place as prescribed Yes Yes Has compression in place as prescribed Yes Yes Has offloadiing in place as prescribed N/A N/A Experienced any changes in pain level or No No management Left Footwear Regular Shoe Regular Shoe Right Footwear Regular Shoe Regular Shoe Pain Scale: 0-10 Numeric Is Patient Pain Free? Yes Yes WC - Nurse 1 - General Ulcer Measurement Start: 09/02/23 09:58 Freq: Status: Active Protocol: Activity Type Activity Date Activity User E-sign Co-sign Detail Recorded Client Recorded Date Recorded By Document 09/02/23 10:01 KW ; 09/02/23 10:12 KW Document 09/09/23 09:28 KW k 09/09/23 09:37 KW 09/02/23 09/09/23 10:01 09:28 Wound Center Nurse 1 #5 lt lat le -Current Size (cm) - Length 2 -Current Size (cm) - Width 2 -Current Size (cm) - Depth 0.1 -Total Square Cm 4 -Exudate Amt None Present -Wound Margin Distinct, Outline Attached -Granulation Amt Large (67-100%) -Granulation Quality Red -Texture (Coretta-wound Skin Appearance) Assessed -Moisture (Coretta-wound Skin Appearance) Assessed -Color (Coretta-wound Skin Appearance) Assessed -Temperature (Coretta-wound Skin No Abnormality Appearance) (Pt Warm) -Ulcer Cleansing Soap and Water -Foul Odor after Cleansing No -Anesthetic Used 5% Lidocaine Gel #2 LT MED LE -Current Size (cm) - Length 1.6 0.1 -Current Size (cm) - Width 2.3 0.1 -Current Size (cm) - Depth 0.1 0.1 -Total Square Cm 3.68 0.01 -Date of Last Picture (Recall this 09/09/23 field) -Exudate Amt Small -Exudate Type Serosanguineous -Wound Margin Distinct, Outline Attached -Granulation Amt Small (1-33%) -Granulation Quality [place] -Necrotic Tissue Type Adherent Slough -Texture (Coretta-wound Skin Appearance) Assessed Assessed -Moisture (Coretta-wound Skin Appearance) Assessed Assessed -Color (Coretta-wound Skin Appearance) Assessed, Assessed, Hemosiderin Hemosiderin Staining Staining -Temperature (Coretta-wound Skin No Abnormality No Abnormality Appearance) (Pt Warm) (Pt Warm) -Tenderness on Palpation (Coretta-wound No Skin Appearance) -Ulcer Cleansing Soap and Water Soap and Water -Foul Odor after Cleansing No No -Anesthetic Used 5% Lidocaine 5% Lidocaine Gel Gel -Wound Comment(s) scabbed #4 inf lt med le -Current Size (cm) - Length 1.6 -Current Size (cm) - Width 1.5 -Current Size (cm) - Depth 0.1 -Total Square Cm 2.40 -Exudate Amt Small -Exudate Type Serosanguineous -Wound Margin Distinct, Outline Attached -Granulation Amt Large (67-100%) -Granulation Quality Red -Texture (Coretta-wound Skin Appearance) Assessed -Moisture (Coretta-wound Skin Appearance) Assessed -Color (Coretta-wound Skin Appearance) Assessed -Temperature (Coretta-wound Skin No Abnormality Appearance) (Pt Warm) -Tenderness on Palpation (Coretta-wound No Skin Appearance) -Ulcer Cleansing Soap and Water -Foul Odor after Cleansing No -Anesthetic Used 5% Lidocaine Gel Right Calf (cm) 40 39 Right Ankle (cm) 23 23 Left Calf (cm) 42.5 41.5 Left Ankle (cm) 24.2 24 WC - Nurse 2 - General Ulcer CM Notes Start: 09/02/23 09:58 Freq: Status: Active Protocol: Activity Type Activity Date Activity User E-sign Co-sign Detail Recorded Client Recorded Date Recorded By Document 09/02/23 10:21 JF 0000 09/02/23 10:23 JF Document 09/09/23 09:47 JF 000 09/09/23 09:51 JF 09/02/23 09/09/23 10:21 09:47 Wound Center Nurse 2 #5 lt lat le -Time 10:21 09:47 -Correct Patient No -Correct Side, Site, Position No -Correct Procedure No -Procedure Performed No -Tunneling No -Undermining/Tunneling No -Circular Undermining No -Wound/Ulcer Outcome Not Healed Not Healed -Ulcer Cleansing Rinsed/ Irrigated with Saline -Foul Odor after Cleansing No -Bioengineered Tissue Yes -Type of Bioengineered Tissue Epifix 18mm Disc -Expiration Date 03/03/28 -Product Lot Number [id number] -Percent Used 100 -Lot number of Saline Used [id number] -Bleeding Controlled with Pressure -Treatment Response Procedure Tolerated Well -Offloading No -Debridement - Subq, 1st 20sq cm No -Apply Skin Sub - 1st 25 sq cm - Legs 1 -Epifix 18mm Disc 3 #2 LT MED LE -Time 10:21 -Correct Patient Yes -Correct Side, Site, Position Yes -Correct Procedure Yes -Procedure Performed Yes -Type of Procedure Debridement -Clinical Debridement Subcutaneous -Tissue Removed Subcutaneous -Post Debridement (cm) - Length 1.3 -Post Debridement (cm) - Width 1.8 -Post Debridement (cm) - Depth 0.1 -Total Square (Post) (cm) 2.34 -Area of Debridement (cm) - Length 1.3 -Area of Debridement (cm) - Width 1.8 -Total Square (Area) (cm) 2.34 -Tunneling No -Undermining/Tunneling No -Circular Undermining No -Wound/Ulcer Outcome Not Healed -Ulcer Cleansing Rinsed/ Irrigated with Saline -Foul Odor after Cleansing No -Bioengineered Tissue Yes -Type of Bioengineered Tissue Epifix 18mm Disc -Expiration Date 03/02/28 -Product Lot Number [id number] -Percent Used 100 -Lot number of Saline Used [id number] -Bleeding Controlled with Pressure -Treatment Response Procedure Tolerated Well -Offloading No -Debridement - Open, 1st 20sq cm No -Debridement - Subq, 1st 20sq cm No -Apply Skin Sub - 1st 25 sq cm - Legs 1 -Epifix 18mm Disc 3 #4 inf lt med le -Correct Patient No Yes -Correct Side, Site, Position No Yes -Correct Procedure No Yes -Procedure Performed No Yes -Type of Procedure Debridement -Clinical Debridement Subcutaneous -Tissue Removed Subcutaneous -Post Debridement (cm) - Length 1.0 -Post Debridement (cm) - Width 0.4 -Post Debridement (cm) - Depth 0.1 -Total Square (Post) (cm) 0.40 -Area of Debridement (cm) - Length 1.0 -Area of Debridement (cm) - Width 0.4 -Total Square (Area) (cm) 0.40 -Tunneling No -Undermining/Tunneling No -Circular Undermining No -Wound/Ulcer Outcome Not Healed Not Healed -Ulcer Cleansing Rinsed/ Irrigated with Saline -Foul Odor after Cleansing No -Bioengineered Tissue Yes -Type of Bioengineered Tissue Epifix 18mm Disc -Expiration Date 04/02/28 -Product Lot Number [id number] -Percent Used 100 -Lot number of Saline Used [id number] -Bleeding Controlled with Pressure -Treatment Response Procedure Tolerated Well -Offloading No -Debridement - Subq, 1st 20sq cm No -Apply Skin Sub - 1st 25 sq cm - Legs 1 -Epifix 18mm Disc 3 Pain Scale: 0-10 Numeric Is Patient Pain Free? Yes Yes - Nurse 3 - General Ulcer D/C NN Start: 09/02/23 09:58 Freq: Status: Active Protocol: Activity Type Activity Date Activity User E-sign Co-sign Detail Recorded Client Recorded Date Recorded By Document 09/02/23 10:40 KW ; 09/02/23 10:41 KW Document 09/09/23 10:00 KW k 09/09/23 10:00 KW 09/02/23 09/09/23 10:40 10:00 Wound Care Center Nurse 3 #5 lt lat le -Other Dressing xeroform #2 LT MED LE -Primary Dressing Applied Optilok 6.5x10 -Optilok 6.5x10 1 #4 inf lt med le -Other Dressing xeroform -Primary Dressing Covered/Secured with Dry Gauze & Roll Gauze, Secured with Tape BLE -Multi-Layered Wrap Application Multi-Layer Multi-Layer Comp - Bilat ($ Comp - Bilat ($ ) ) Pain Scale: 0-10 Numeric Is Patient Pain Free? Yes Yes WC - Visit Discharge Discharge Condition Stable Stable Ambulatory Status Ambulatory, Ambulatory, Walker Walker Transportation Private Auto Private Auto Accompanied by Medication Reconcilliation completed & No No provided to patient/care provider Clinical Summary of Care Provided Yes Yes Assessment/Plan Assessment/Plan (1) Non-pressure chronic ulcer of other part of left lower leg with fat layer exposed: CODE(S): L97.822 - Non-pressure chronic ulcer of other part of left lower leg with fat layer exposed PLAN: Patient was examined and evaluated. All findings were discussed with the patient. All questions were answered to the patient's satisfaction. Excisional debridement down to and including subcutaneous tissue with a number 5 mm dermal curette to the left anterior leg without incident. Predebridement was eschar.. Postdebridement measurement is 1.0 x 0.4 x 0.1 cm. EpiFix 18 mm disc was applied to the left full-thickness ulceration with 100% use. Sixth application. The graft site was free and clear of any infection. The wound/skin graft substitute was dressed with nonadherent bandage secured in place with Steri-Strips followed by bolster dressing as well as a 3M compression wrap. Follow-up at the wound care center with Dr. Dominguez in 1 week. (2) Other specified peripheral vascular diseases: CODE(S): I73.89 - Other specified peripheral vascular diseases
--- NOTE | 2023-09-10 10:15 | WC ---
PHOTO 09/09/2023 LEFT MEDIAL LEG CLUSTER
[2023-09-16 10:18] VITALS: BP 186/95; PULSE 91; RESP 18; TEMP 36.4; BMI 29.4
--- NOTE | 2023-09-16 10:50 | PN.PCM_ITS ---
History of Present Illness Date of Service: 09/16/23 Chief Complaint: Venous stasis ulceration of the right pretibial area History of Wound: This is an obese 73-year-old diabetic male who presented with a venous stasis ulceration on the right pretibial area. The ulceration has been present for approximately 2 to 3 weeks. However, the patient has had similar occurrences in the past. He has had previous episodes whereby blisters have spontaneously occurred on his distal lower extremities, subsequently erupting into small open wounds. The patient suffers from Parkinson's disease. He is obese, with a BMI of 36.1. His activity is very limited based upon his Parkinson's disease and prior lower extremity fractures. 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 He sleeps in a recliner, with his lower extremities in a dependent position. He ambulates in very li mited fashion using a cane. He denies a history of thrombophlebitis. Subjective Subjective Mr. Silva is a 73-year-old diabetic male presenting to the wound care center today for evaluation of full-thickness ulceration to the left leg. He admits to being approved for amniotic skin graft substitute. His blood sugars under control. Denies trauma. Denies constitutional symptoms. No other pedal complaints at this time. Objective Data Objective Data Vital Signs: Vital Signs Temp Pulse Resp BP O2 Del Method 97.6 F L 91 18 186/95 H Room Air 09/16/23 10:18 09/16/23 10:18 09/16/23 10:18 09/16/23 10:18 09/16/23 10:18 Oxygen Delivery Method Room Air Weight: 98.43 kg Body Mass Index (BMI) 29.4 Physical Exam Narrative Vascular: DP and PT pulses are faintly palpable secondary to edema. +1 pitting edema appreciated bilateral lower extremity. Blanchable erythema appreciated to the bilateral lower extremity. Evidence of venous insufficiency with hemosiderin deposits. Skin temperature great is warm to warm from proximal ankle to distal digits with no focal increase. Neurological: Light touch intact. Protective station is diminished. Dermatological: Full-thickness ulceration to the anterior left leg measuring 0.9 x 0.3 x 0.1 cm. Wound base is 100% granular nature. Edema is improved. No drainage. No sign of infection. Evidence of serous fluid bullae to the left leg. No infection. Excisional debridement down to and including subcutaneous tissue with a number 5 mm dermal curette to the left anterior leg without incident. Predebridement was eschar. Postdebridement measurement is 0.9 x 0.3 x 0.1 cm. EpiFix 18 mm disc was applied to the left full-thickness ulceration with 100% use. Seventh application. The graft site was free and clear of any infection. The wound/skin graft substitute was dressed with nonadherent bandage secured in place with Steri-Strips followed by bolster dressing as well as a 3M compression wrap. Musculoskeletal: Muscle strength is 5 out of 5 in all quadrants. No pain on palpation to the full-thickness ulceration to the left leg. No pain with calf pression. Debridement Note Debridement Note Debridement Free Text: Excisional debridement down to and including subcutaneous tissue with a number 5 mm dermal curette to the left anterior leg without incident. Predebridement was eschar. Postdebridement measurement is 0.9 x 0.3 x 0.1 cm. EpiFix 18 mm disc was applied to the left full-thickness ulceration with 100% use. Seventh application. The graft site was free and clear of any infection. The wound/skin graft substitute was dressed with nonadherent bandage secured in place with Steri-Strips followed by bolster dressing as well as a 3M compression wrap. Post-Debridement Measurements and Additional Note: Post-Debridement Measurements/Treatment - Nurse 1 - General Ulcer Assessment Start: 09/02/23 09:58 Freq: Status: Active Protocol: .NAIEXGiovanni Activity Type Activity Date Activity User E-sign Co-sign Detail Recorded Client Recorded Date Recorded By Document 09/02/23 10:01 KW ; 09/02/23 10:12 KW Document 09/09/23 09:28 KW k 09/09/23 09:37 KW Document 09/16/23 10:18 KW ; 09/16/23 10:29 KW 09/02/23 09/09/23 09/16/23 10:01 09:28 10:18 - Today's Visit Information Type of service Follow-up Visit Follow-up Visit (Physician/NURSING UNIT MANAGER (Physician/NURSING UNIT MANAGER ) ) Arrival Mode Ambulatory, Ambulatory, Walker Walker Accompanied by Patient Identification Verified (Name & Yes Yes ) Height and Weight Body Mass Index (BMI) 29.4 29.4 29.4 BMI Classification Overweight Overweight Overweight Vital Signs Temperature (97.8 F-99.1 F) 97.6 F L 97.0 F L 97.6 F L Temperature Source Temporal Temporal Temporal Pulse Rate (60-100) 96 96 91 Pulse Location Monitor Monitor Monitor Respiratory Rate (12-18) 18 18 18 Respiratory rate source Observation Observation Observation Oxygen Delivery Method Room Air Room Air Room Air Blood Pressure (90/60-120/80) 164/95 H 195/87 H 186/95 H Blood Pressure Mean (mm Hg) 118 123 125 Source Monitor Monitor Monitor Position Semi-Fowlers Semi-Fowlers Semi-Fowlers Blood Pressure Location Left Arm Left Arm Right Arm History Since Last Visit- (Skip if this is Patient's initial visit) Have you changed medications since your No No No last visit? Any new allergies or adverse reactions No No No Had a fall/change in ADL's that may No No No increase risk of falls Signs or symptoms of abuse and/or No No No neglect since last visit Have you been in the hospital since your No No No last visit? Has dressing in place as prescribed Yes Yes Yes Has compression in place as prescribed Yes Yes Yes Has offloadiing in place as prescribed N/A N/A N/A Experienced any changes in pain level or No No No management Left Footwear Regular Shoe Regular Shoe Regular Shoe Right Footwear Regular Shoe Regular Shoe Regular Shoe Pain Scale: 0-10 Numeric Is Patient Pain Free? Yes Yes Yes WC - Nurse 1 - General Ulcer Measurement Start: 09/02/23 09:58 Freq: Status: Active Protocol: Activity Type Activity Date Activity User E-sign Co-sign Detail Recorded Client Recorded Date Recorded By Document 09/02/23 10:01 KW ; 09/02/23 10:12 KW Document 09/09/23 09:28 KW k 09/09/23 09:37 KW Document 09/16/23 10:18 KW ; 09/16/23 10:29 KW 09/02/23 09/09/23 09/16/23 10:01 09:28 10:18 Wound Center Nurse 1 #5 lt lat le -Current Size (cm) - Length 2 -Current Size (cm) - Width 2 -Current Size (cm) - Depth 0.1 -Total Square Cm 4 -Exudate Amt None Present -Wound Margin Distinct, Outline Attached -Granulation Amt Large (67-100%) -Granulation Quality Red -Texture (Coretta-wound Skin Appearance) Assessed -Moisture (Coretta-wound Skin Appearance) Assessed -Color (Coretta-wound Skin Appearance) Assessed -Temperature (Coretta-wound Skin No Abnormality Appearance) (Pt Warm) -Ulcer Cleansing Soap and Water -Foul Odor after Cleansing No -Anesthetic Used 5% Lidocaine Gel #2 LT MED LE -Current Size (cm) - Length 1.6 0.1 -Current Size (cm) - Width 2.3 0.1 -Current Size (cm) - Depth 0.1 0.1 -Total Square Cm 3.68 0.01 -Date of Last Picture (Recall this 09/09/23 field) -Exudate Amt Small -Exudate Type Serosanguineous -Wound Margin Distinct, Outline Attached -Granulation Amt Small (1-33%) -Granulation Quality Mettler -Necrotic Tissue Type Adherent Slough -Texture (Coretta-wound Skin Appearance) Assessed Assessed -Moisture (Coretta-wound Skin Appearance) Assessed Assessed -Color (Coretta-wound Skin Appearance) Assessed, Assessed, Hemosiderin Hemosiderin Staining Staining -Temperature (Coretta-wound Skin No Abnormality No Abnormality Appearance) (Pt Warm) (Pt Warm) -Tenderness on Palpation (Coretta-wound No Skin Appearance) -Ulcer Cleansing Soap and Water Soap and Water -Foul Odor after Cleansing No No -Anesthetic Used 5% Lidocaine 5% Lidocaine Gel Gel -Wound Comment(s) scabbed #4 inf lt med le -Current Size (cm) - Length 1.6 0.9 -Current Size (cm) - Width 1.5 0.2 -Current Size (cm) - Depth 0.1 0.1 -Total Square Cm 2.40 0.18 -Exudate Amt Small Small -Exudate Type Serosanguineous Serosanguineous -Wound Margin Distinct, Distinct, Outline Outline Attached Attached -Granulation Amt Large (67-100%) -Granulation Quality Red -Necrosis Amt Large (67-100%) -Necrotic Tissue Type Eschar -Texture (Coretta-wound Skin Appearance) Assessed Assessed -Moisture (Coretta-wound Skin Appearance) Assessed Assessed -Color (Coretta-wound Skin Appearance) Assessed Assessed -Temperature (Coretta-wound Skin No Abnormality No Abnormality Appearance) (Pt Warm) (Pt Warm) -Tenderness on Palpation (Coretta-wound No No Skin Appearance) -Ulcer Cleansing Soap and Water Soap and Water -Foul Odor after Cleansing No No -Anesthetic Used 5% Lidocaine 5% Lidocaine Gel Gel -Wound Comment(s) SCABBED Right Calf (cm) 40 39 42 Right Ankle (cm) 23 23 23 Left Calf (cm) 42.5 41.5 Left Ankle (cm) 24.2 24 WC - Nurse 2 - General Ulcer CM Notes Start: 09/02/23 09:58 Freq: Status: Active Protocol: Activity Type Activity Date Activity User E-sign Co-sign Detail Recorded Client Recorded Date Recorded By Document 09/02/23 10:21 JF 0000 09/02/23 10:23 JF Document 09/09/23 09:47 JF 000 09/09/23 09:51 JF 09/02/23 09/09/23 10:21 09:47 Wound Center Nurse 2 #5 lt lat le -Time 10:21 09:47 -Correct Patient No -Correct Side, Site, Position No -Correct Procedure No -Procedure Performed No -Tunneling No -Undermining/Tunneling No -Circular Undermining No -Wound/Ulcer Outcome Not Healed Not Healed -Ulcer Cleansing Rinsed/ Irrigated with Saline -Foul Odor after Cleansing No -Bioengineered Tissue Yes -Type of Bioengineered Tissue Epifix 18mm Disc -Expiration Date 03/03/28 -Product Lot Number [id number] -Percent Used 100 -Lot number of Saline Used [id number] -Bleeding Controlled with Pressure -Treatment Response Procedure Tolerated Well -Offloading No -Debridement - Subq, 1st 20sq cm No -Apply Skin Sub - 1st 25 sq cm - Legs 1 -Epifix 18mm Disc 3 #2 LT MED LE -Time 10:21 -Correct Patient Yes -Correct Side, Site, Position Yes -Correct Procedure Yes -Procedure Performed Yes -Type of Procedure Debridement -Clinical Debridement Subcutaneous -Tissue Removed Subcutaneous -Post Debridement (cm) - Length 1.3 -Post Debridement (cm) - Width 1.8 -Post Debridement (cm) - Depth 0.1 -Total Square (Post) (cm) 2.34 -Area of Debridement (cm) - Length 1.3 -Area of Debridement (cm) - Width 1.8 -Total Square (Area) (cm) 2.34 -Tunneling No -Undermining/Tunneling No -Circular Undermining No -Wound/Ulcer Outcome Not Healed -Ulcer Cleansing Rinsed/ Irrigated with Saline -Foul Odor after Cleansing No -Bioengineered Tissue Yes -Type of Bioengineered Tissue Epifix 18mm Disc -Expiration Date 03/02/28 -Product Lot Number [id number] -Percent Used 100 -Lot number of Saline Used [id number] -Bleeding Controlled with Pressure -Treatment Response Procedure Tolerated Well -Offloading No -Debridement - Open, 1st 20sq cm No -Debridement - Subq, 1st 20sq cm No -Apply Skin Sub - 1st 25 sq cm - Legs 1 -Epifix 18mm Disc 3 #4 inf lt med le -Correct Patient No Yes -Correct Side, Site, Position No Yes -Correct Procedure No Yes -Procedure Performed No Yes -Type of Procedure Debridement -Clinical Debridement Subcutaneous -Tissue Removed Subcutaneous -Post Debridement (cm) - Length 1.0 -Post Debridement (cm) - Width 0.4 -Post Debridement (cm) - Depth 0.1 -Total Square (Post) (cm) 0.40 -Area of Debridement (cm) - Length 1.0 -Area of Debridement (cm) - Width 0.4 -Total Square (Area) (cm) 0.40 -Tunneling No -Undermining/Tunneling No -Circular Undermining No -Wound/Ulcer Outcome Not Healed Not Healed -Ulcer Cleansing Rinsed/ Irrigated with Saline -Foul Odor after Cleansing No -Bioengineered Tissue Yes -Type of Bioengineered Tissue Epifix 18mm Disc -Expiration Date 04/02/28 -Product Lot Number [id number] -Percent Used 100 -Lot number of Saline Used [id number] -Bleeding Controlled with Pressure -Treatment Response Procedure Tolerated Well -Offloading No -Debridement - Subq, 1st 20sq cm No -Apply Skin Sub - 1st 25 sq cm - Legs 1 -Epifix 18mm Disc 3 Pain Scale: 0-10 Numeric Is Patient Pain Free? Yes Yes WC - Nurse 3 - General Ulcer D/C NN Start: 09/02/23 09:58 Freq: Status: Active Protocol: Activity Type Activity Date Activity User E-sign Co-sign Detail Recorded Client Recorded Date Recorded By Document 09/02/23 10:40 KW ; 09/02/23 10:41 KW Document 09/09/23 10:00 KW k 09/09/23 10:00 KW 09/02/23 09/09/23 10:40 10:00 Wound Care Center Nurse 3 #5 lt lat le -Other Dressing xeroform #2 LT MED LE -Primary Dressing Applied Optilok 6.5x10 -Optilok 6.5x10 1 #4 inf lt med le -Other Dressing xeroform -Primary Dressing Covered/Secured with Dry Gauze & Roll Gauze, Secured with Tape BLE -Multi-Layered Wrap Application Multi-Layer Multi-Layer Comp - Bilat ($ Comp - Bilat ($ ) ) Pain Scale: 0-10 Numeric Is Patient Pain Free? Yes Yes WC - Visit Discharge Discharge Condition Stable Stable Ambulatory Status Ambulatory, Ambulatory, Walker Walker Transportation Private Auto Private Auto Accompanied by Medication Reconcilliation completed & No No provided to patient/care provider Clinical Summary of Care Provided Yes Yes Assessment/Plan Assessment/Plan (1) Non-pressure chronic ulcer of other part of left lower leg with fat layer exposed: CODE(S): L97.822 - Non-pressure chronic ulcer of other part of left lower leg with fat layer exposed PLAN: Patient was examined and evaluated. All findings were discussed with the patient. All questions were answered to the patient's satisfaction. Excisional debridement down to and including subcutaneous tissue with a number 5 mm dermal curette to the left anterior leg without incident. Predebridement was eschar. Postdebridement measurement is 0.9 x 0.3 x 0.1 cm. EpiFix 18 mm disc was applied to the left full-thickness ulceration with 100% use. Seventh application. The graft site was free and clear of any infection. The wound/skin graft substitute was dressed with nonadherent bandage secured in place with Steri-Strips followed by bolster dressing as well as a 3M compression wrap. The left leg serous bullae was drained. There is no evidence of malodor or purulent drainage. Fluid was sterile. The blister/serous bullae was dressed with triple antibiotic and Adaptic before the 3M multilayer compression bandage was donned to left extremity. CircAid was donned to the right lower extremity and educated the patient and how to don and remove the CircAid per the mgmt consultant's recommendation. Follow-up at the wound care center with Dr. Dominguez in 1 week. (2) Other specified peripheral vascular diseases: CODE(S): I73.89 - Other specified peripheral vascular diseases (3) Blister of left leg: CODE(S): S80.822A - Blister (nonthermal), left lower leg, initial encounter
[2023-09-23 11:34] VITALS: BP 163/80; PULSE 99; RESP 18; TEMP 36.6; BMI 29.4
--- NOTE | 2023-09-23 12:46 | PCM.WC.PN ---
History of Present Illness Date of Service: 09/23/23 Chief Complaint: Venous stasis ulceration of the right pretibial area History of Wound: This is an obese 73-year-old diabetic male who presented with a venous stasis ulceration on the right pretibial area. The ulceration has been present for approximately 2 to 3 weeks. However, the patient has had similar occurrences in the past. He has had previous episodes whereby blisters have spontaneously occurred on his distal lower extremities, subsequently erupting into small open wounds. The patient suffers from Parkinson's disease. He is obese, with a BMI of 36.1. His activity is very limited based upon his Parkinson's disease and prior lower extremity fractures. 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 He sleeps in a recliner, with his lower extremities in a dependent position. He ambulates in very limited fashion using a cane. He denies a history of thrombophlebitis. Subjective Subjective Mr. Silva is a 73-year-old diabetic male presenting to the wound care center today for follow-up evaluation of full-thickness ulceration to left leg. He has gone through skin graft applications that have now healed his left leg wound. He is wearing compression wraps to the right lower extremity. His mentions that they misplaced the other wrap and will probably need multilayer compression bandage until they can find it. They are currently in the process of relocating but are having trouble securing property at this time. He denies any new open wounds. Denies trauma. Denies constitutional symptoms. Blood sugars well-controlled. No other pedal complaints at this time. Objective Data Objective Data Vital Signs: Vital Signs Temp Pulse Resp BP O2 Del Method 97.9 F 99 18 163/80 H Room Air 09/23/23 11:34 09/23/23 11:34 09/23/23 11:34 09/23/23 11:34 09/23/23 11:34 Oxygen Delivery Method Room Air Weight: 98.43 kg Body Mass Index (BMI) 29.4 Physical Exam Narrative Vascular: DP and PT pulses are faintly palpable secondary to edema. +1 pitting edema appreciated bilateral lower extremity. Blanchable erythema appreciated to the bilateral lower extremity. Evidence of venous insufficiency with hemosiderin deposits. Skin temperature great is warm to warm from proximal ankle to distal digits with no focal increase. Neurological: Light touch intact. Protective station is diminished. Dermatological: Full-thickness ulceration to the left anterior leg is now healed. No open lesions or abrasions. Nonpitting edema to the bilateral lower extremity. Musculoskeletal: Muscle strength is 5 out of 5 in all quadrants. No pain on palpation to the full-thickness ulceration to the left leg. No pain with calf pression. Debridement Note Debridement Note Post-Debridement Measurements and Additional Note: Post-Debridement Measurements/Treatment - Nurse 1 - General Ulcer Assessment Start: 09/02/23 09:58 Freq: Status: Active Protocol: [email or web address].LOWEXT Activity Type Activity Date Activity User E-sign Co-sign Detail Recorded Client Recorded Date Recorded By Document 09/02/23 10:01 KW ; 09/02/23 10:12 KW Document 09/09/23 09:28 KW k 09/09/23 09:37 KW Document 09/16/23 10:18 KW ; 09/16/23 10:29 KW Document 09/23/23 11:34 KW d 09/23/23 11:56 KW 09/02/23 09/09/23 09/16/23 10:01 09:28 10:18 - Today's Visit Information Type of service Follow-up Visit Follow-up Visit (Physician/[employer]PERVISOR (Physician/[employer] SUPERVISOR ) ) Arrival Mode Ambulatory, Ambulatory, Walker Walker Accompanied by Patient Identification Verified (Name & Yes Yes ) Height and Weight Body Mass Index (BMI) 29.4 29.4 29.4 BMI Classification Overweight Overweight Overweight Vital Signs Temperature (97.8 F-99.1 F) 97.6 F L 97.0 F L 97.6 F L Temperature Source Temporal Temporal Temporal Pulse Rate (60-100) 96 96 91 Pulse Location Monitor Monitor Monitor Respiratory Rate (12-18) 18 18 18 Respiratory rate source Observation Observation Observation Oxygen Delivery Method Room Air Room Air Room Air Blood Pressure (90/60-120/80) 164/95 H 195/87 H 186/95 H Blood Pressure Mean (mm Hg) 118 123 125 Source Monitor Monitor Monitor Position Semi-Fowlers Semi-Fowlers Semi-Fowlers Blood Pressure Location Left Arm Left Arm Right Arm History Since Last Visit- (Skip if this is Patient's initial visit) Have you changed medications since your No No No last visit? Any new allergies or adverse reactions No No No Had a fall/change in ADL's that may No No No increase risk of falls Signs or symptoms of abuse and/or No No No neglect since last visit Have you been in the hospital since your No No No last visit? Has dressing in place as prescribed Yes Yes Yes Has compression in place as prescribed Yes Yes Yes Has offloadiing in place as prescribed N/A N/A N/A Experienced any changes in pain level or No No No management Left Footwear Regular Shoe Regular Shoe Regular Shoe Right Footwear Regular Shoe Regular Shoe Regular Shoe Pain Scale: 0-10 Numeric Is Patient Pain Free? Yes Yes Yes 09/23/23 11:34 WC - Today's Visit Information Type of service Follow-up Visit (Physician/[employer] SUPERVISOR ) Arrival Mode Ambulatory, Walker Accompanied by Patient Identification Verified (Name & Yes ) Height and Weight Body Mass Index (BMI) 29.4 BMI Classification Overweight Vital Signs Temperature (97.8 F-99.1 F) 97.9 F Temperature Source Temporal Pulse Rate (60-100) 99 Pulse Location Monitor Respiratory Rate (12-18) 18 Respiratory rate source Observation Oxygen Delivery Method Room Air Blood Pressure (90/60-120/80) 163/80 H Blood Pressure Mean (mm Hg) 107 Source Monitor Position Sitting Blood Pressure Location Left Arm History Since Last Visit- (Skip if this is Patient's initial visit) Have you changed medications since your No last visit? Any new allergies or adverse reactions No Had a fall/change in ADL's that may No increase risk of falls Signs or symptoms of abuse and/or No neglect since last visit Have you been in the hospital since your No last visit? Has dressing in place as prescribed Yes Has compression in place as prescribed Yes Has offloadiing in place as prescribed N/A Experienced any changes in pain level or No management Left Footwear Regular Shoe Right Footwear Regular Shoe Pain Scale: 0-10 Numeric Is Patient Pain Free? Yes - Nurse 1 - General Ulcer Measurement Start: 09/02/23 09:58 Freq: Status: Active Protocol: Activity Type Activity Date Activity User E-sign Co-sign Detail Recorded Client Recorded Date Recorded By Document 09/02/23 10:01 KW ; 09/02/23 10:12 KW Document 09/09/23 09:28 KW k 09/09/23 09:37 KW Document 09/16/23 10:18 KW ; 09/16/23 10:29 KW Document 09/23/23 11:34 KW d 09/23/23 11:56 KW 09/02/23 09/09/23 09/16/23 10:01 09:28 10:18 Wound Center Nurse 1 #5 lt lat le -Current Size (cm) - Length 2 -Current Size (cm) - Width 2 -Current Size (cm) - Depth 0.1 -Total Square Cm 4 -Exudate Amt None Present -Wound Margin Distinct, Outline Attached -Granulation Amt Large (67-100%) -Granulation Quality Red -Texture (Coretta-wound Skin Appearance) Assessed -Moisture (Coretta-wound Skin Appearance) Assessed -Color (Coretta-wound Skin Appearance) Assessed -Temperature (Coretta-wound Skin No Abnormality Appearance) (Pt Warm) -Ulcer Cleansing Soap and Water -Foul Odor after Cleansing No -Anesthetic Used 5% Lidocaine Gel #4 inf lt med le -Current Size (cm) - Length 1.6 0.9 -Current Size (cm) - Width 1.5 0.2 -Current Size (cm) - Depth 0.1 0.1 -Total Square Cm 2.40 0.18 -Exudate Amt Small Small -Exudate Type Serosanguineous Serosanguineous -Wound Margin Distinct, Distinct, Outline Outline Attached Attached -Granulation Amt Large (67-100%) -Granulation Quality Red -Necrosis Amt Large (67-100%) -Necrotic Tissue Type Eschar -Texture (Coretta-wound Skin Appearance) Assessed Assessed -Moisture (Coretta-wound Skin Appearance) Assessed Assessed -Color (Coretta-wound Skin Appearance) Assessed Assessed -Temperature (Coretta-wound Skin No Abnormality No Abnormality Appearance) (Pt Warm) (Pt Warm) -Tenderness on Palpation (Coretta-wound No No Skin Appearance) -Ulcer Cleansing Soap and Water Soap and Water -Foul Odor after Cleansing No No -Anesthetic Used 5% Lidocaine 5% Lidocaine Gel Gel -Wound Comment(s) SCABBED #2 LT MED LE -Current Size (cm) - Length 1.6 0.1 -Current Size (cm) - Width 2.3 0.1 -Current Size (cm) - Depth 0.1 0.1 -Total Square Cm 3.68 0.01 -Date of Last Picture (Recall this 09/09/23 field) -Exudate Amt Small -Exudate Type Serosanguineous -Wound Margin Distinct, Outline Attached -Granulation Amt Small (1-33%) -Granulation Quality [place] -Necrotic Tissue Type Adherent Slough -Texture (Coretta-wound Skin Appearance) Assessed Assessed -Moisture (Coretta-wound Skin Appearance) Assessed Assessed -Color (Coretta-wound Skin Appearance) Assessed, Assessed, Hemosiderin Hemosiderin Staining Staining -Temperature (Coretta-wound Skin No Abnormality No Abnormality Appearance) (Pt Warm) (Pt Warm) -Tenderness on Palpation (Coretta-wound No Skin Appearance) -Ulcer Cleansing Soap and Water Soap and Water -Foul Odor after Cleansing No No -Anesthetic Used 5% Lidocaine 5% Lidocaine Gel Gel -Wound Comment(s) scabbed Right Calf (cm) 40 39 42 Right Ankle (cm) 23 23 23 Left Calf (cm) 42.5 41.5 Left Ankle (cm) 24.2 24 09/23/23 11:34 Wound Center Nurse 1 #5 lt lat le -Current Size (cm) - Length -Current Size (cm) - Width -Current Size (cm) - Depth -Total Square Cm -Exudate Amt -Wound Margin -Granulation Amt -Granulation Quality -Texture (Coretta-wound Skin Appearance) -Moisture (Coretta-wound Skin Appearance) -Color (Coretta-wound Skin Appearance) -Temperature (Coretta-wound Skin Appearance) -Ulcer Cleansing -Foul Odor after Cleansing -Anesthetic Used #4 inf lt med le -Current Size (cm) - Length 0 -Current Size (cm) - Width 0 -Current Size (cm) - Depth 0 -Total Square Cm 0 -Exudate Amt -Exudate Type -Wound Margin -Granulation Amt -Granulation Quality -Necrosis Amt -Necrotic Tissue Type -Texture (Coretta-wound Skin Appearance) Assessed -Moisture (Coretta-wound Skin Appearance) Assessed -Color (Coretta-wound Skin Appearance) Assessed -Temperature (Coretta-wound Skin No Abnormality Appearance) (Pt Warm) -Tenderness on Palpation (Coretta-wound No Skin Appearance) -Ulcer Cleansing -Foul Odor after Cleansing -Anesthetic Used -Wound Comment(s) #2 LT MED LE -Current Size (cm) - Length -Current Size (cm) - Width -Current Size (cm) - Depth -Total Square Cm -Date of Last Picture (Recall this field) -Exudate Amt -Exudate Type -Wound Margin -Granulation Amt -Granulation Quality -Necrotic Tissue Type -Texture (Coretta-wound Skin Appearance) -Moisture (Coretta-wound Skin Appearance) -Color (Coretta-wound Skin Appearance) -Temperature (Coretta-wound Skin Appearance) -Tenderness on Palpation (Coretta-wound Skin Appearance) -Ulcer Cleansing -Foul Odor after Cleansing -Anesthetic Used -Wound Comment(s) Right Calf (cm) 40 Right Ankle (cm) 24 Left Calf (cm) Left Ankle (cm) - Nurse 2 - General Ulcer CM Notes Start: 09/02/23 09:58 Freq: Status: Active Protocol: Activity Type Activity Date Activity User E-sign Co-sign Detail Recorded Client Recorded Date Recorded By Document 09/02/23 10:21 JF 0000 09/02/23 10:23 JF Document 09/09/23 09:47 JF 000 09/09/23 09:51 JF Document 09/16/23 10:49 GM wc 09/16/23 10:51 GM Edit Result 09/16/23 10:49 GM (1) [id number] 09/16/23 13:07 GM Document 09/23/23 12:00 JF 000 09/23/23 12:01 JF (1) #4 inf lt med le - Percent Used => 100 - Apply Skin Sub - 1st 25 sq cm - Legs => 1 09/02/23 09/09/23 09/16/23 10:21 09:47 10:49 Wound Center Nurse 2 #5 lt lat le -Time 10:21 09:47 -Correct Patient No -Correct Side, Site, Position No -Correct Procedure No -Procedure Performed No -Tunneling No -Undermining/Tunneling No -Circular Undermining No -Wound/Ulcer Outcome Not Healed Not Healed -Ulcer Cleansing Rinsed/ Irrigated with Saline -Foul Odor after Cleansing No -Bioengineered Tissue Yes -Type of Bioengineered Tissue Epifix 18mm Disc -Expiration Date 03/03/28 -Product Lot Number [id number] -Percent Used 100 -Lot number of Saline Used [id number] -Bleeding Controlled with Pressure -Treatment Response Procedure Tolerated Well -Offloading No -Debridement - Subq, 1st 20sq cm No -Apply Skin Sub - 1st 25 sq cm - Legs 1 -Epifix 18mm Disc 3 #4 inf lt med le -Time 10:49 -Correct Patient No Yes Yes -Correct Side, Site, Position No Yes Yes -Correct Procedure No Yes Yes -Procedure Performed No Yes Yes -Type of Procedure Debridement Debridement -Clinical Debridement Subcutaneous Subcutaneous -Tissue Removed Subcutaneous Subcutaneous -Post Debridement (cm) - Length 1.0 0.9 -Post Debridement (cm) - Width 0.4 0.3 -Post Debridement (cm) - Depth 0.1 0.1 -Total Square (Post) (cm) 0.40 0.27 -Area of Debridement (cm) - Length 1.0 0.9 -Area of Debridement (cm) - Width 0.4 0.3 -Total Square (Area) (cm) 0.40 0.27 -Tunneling No No -Undermining/Tunneling No No -Circular Undermining No No -Wound/Ulcer Outcome Not Healed Not Healed Not Healed -Ulcer Cleansing Rinsed/ Not Cleansed Irrigated with Saline -Foul Odor after Cleansing No No -Bioengineered Tissue Yes Yes -Type of Bioengineered Tissue Epifix 18mm Epifix 18mm Disc Disc -Expiration Date 04/02/28 04/02/28 -Product Lot Number [id number] -Percent Used 100 100 -Lot number of Saline Used [id number] -Bleeding Controlled with Pressure Pressure -Treatment Response Procedure Procedure Tolerated Well Tolerated Well -Offloading No -Debridement - Subq, 1st 20sq cm No No -Apply Skin Sub - 1st 25 sq cm - Legs 1 1 -Epifix 18mm Disc 3 #2 LT MED LE -Time 10:21 -Correct Patient Yes -Correct Side, Site, Position Yes -Correct Procedure Yes -Procedure Performed Yes -Type of Procedure Debridement -Clinical Debridement Subcutaneous -Tissue Removed Subcutaneous -Post Debridement (cm) - Length 1.3 -Post Debridement (cm) - Width 1.8 -Post Debridement (cm) - Depth 0.1 -Total Square (Post) (cm) 2.34 -Area of Debridement (cm) - Length 1.3 -Area of Debridement (cm) - Width 1.8 -Total Square (Area) (cm) 2.34 -Tunneling No -Undermining/Tunneling No -Circular Undermining No -Wound/Ulcer Outcome Not Healed -Ulcer Cleansing Rinsed/ Irrigated with Saline -Foul Odor after Cleansing No -Bioengineered Tissue Yes -Type of Bioengineered Tissue Epifix 18mm Disc -Expiration Date 03/02/28 -Product Lot Number [id number] -Percent Used 100 -Lot number of Saline Used [id number] -Bleeding Controlled with Pressure -Treatment Response Procedure Tolerated Well -Offloading No -Debridement - Open, 1st 20sq cm No -Debridement - Subq, 1st 20sq cm No -Apply Skin Sub - 1st 25 sq cm - Legs 1 -Epifix 18mm Disc 3 Pain Scale: 0-10 Numeric Is Patient Pain Free? Yes Yes Yes 09/23/23 12:00 Wound Center Nurse 2 #5 lt lat le -Time -Correct Patient -Correct Side, Site, Position -Correct Procedure -Procedure Performed -Tunneling -Undermining/Tunneling -Circular Undermining -Wound/Ulcer Outcome -Ulcer Cleansing -Foul Odor after Cleansing -Bioengineered Tissue -Type of Bioengineered Tissue -Expiration Date -Product Lot Number -Percent Used -Lot number of Saline Used -Bleeding Controlled with -Treatment Response -Offloading -Debridement - Subq, 1st 20sq cm -Apply Skin Sub - 1st 25 sq cm - Legs -Epifix 18mm Disc #4 inf lt med le -Time -Correct Patient No -Correct Side, Site, Position No -Correct Procedure No -Procedure Performed No -Type of Procedure -Clinical Debridement -Tissue Removed -Post Debridement (cm) - Length 0 -Post Debridement (cm) - Width 0 -Post Debridement (cm) - Depth 0 -Total Square (Post) (cm) 0 -Area of Debridement (cm) - Length 0 -Area of Debridement (cm) - Width 0 -Total Square (Area) (cm) 0 -Tunneling -Undermining/Tunneling -Circular Undermining -Wound/Ulcer Outcome Healed- Epithelialized -Ulcer Cleansing -Foul Odor after Cleansing -Bioengineered Tissue -Type of Bioengineered Tissue -Expiration Date -Product Lot Number -Percent Used -Lot number of Saline Used -Bleeding Controlled with -Treatment Response -Offloading -Debridement - Subq, 1st 20sq cm -Apply Skin Sub - 1st 25 sq cm - Legs -Epifix 18mm Disc #2 LT MED LE -Time -Correct Patient -Correct Side, Site, Position -Correct Procedure -Procedure Performed -Type of Procedure -Clinical Debridement -Tissue Removed -Post Debridement (cm) - Length -Post Debridement (cm) - Width -Post Debridement (cm) - Depth -Total Square (Post) (cm) -Area of Debridement (cm) - Length -Area of Debridement (cm) - Width -Total Square (Area) (cm) -Tunneling -Undermining/Tunneling -Circular Undermining -Wound/Ulcer Outcome -Ulcer Cleansing -Foul Odor after Cleansing -Bioengineered Tissue -Type of Bioengineered Tissue -Expiration Date -Product Lot Number -Percent Used -Lot number of Saline Used -Bleeding Controlled with -Treatment Response -Offloading -Debridement - Open, 1st 20sq cm -Debridement - Subq, 1st 20sq cm -Apply Skin Sub - 1st 25 sq cm - Legs -Epifix 18mm Disc Pain Scale: 0-10 Numeric Is Patient Pain Free? Yes WC - Nurse 3 - General Ulcer D/C NN Start: 09/02/23 09:58 Freq: Status: Active Protocol: Activity Type Activity Date Activity User E-sign Co-sign Detail Recorded Client Recorded Date Recorded By Document 09/02/23 10:40 KW ; 09/02/23 10:41 KW Document 09/09/23 10:00 KW k 09/09/23 10:00 KW Document 09/16/23 10:54 KW ' 09/16/23 11:01 KW 09/02/23 09/09/23 09/16/23 10:40 10:00 10:54 Wound Care Center Nurse 3 #5 lt lat le -Other Dressing xeroform #4 inf lt med le -Primary Dressing Applied Optilok 8x12 -Other Dressing xeroform ATB OINTMENT -Primary Dressing Covered/Secured with Dry Gauze & Dry Gauze & Roll Gauze, Roll Gauze, Secured with Secured with Tape Tape -Optilok 8x12 1 #2 LT MED LE -Primary Dressing Applied Optilok 6.5x10 -Optilok 6.5x10 1 BLE -Multi-Layered Wrap Application Multi-Layer Multi-Layer Comp - Bilat ($ Comp - Bilat ($ ) ) Right -Other CIRCAIDE Left -Multi-Layered Wrap Application Multi-Layer Comp - Left ($) Pain Scale: 0-10 Numeric Is Patient Pain Free? Yes Yes Yes WC - Visit Discharge Discharge Condition Stable Stable Ambulatory Status Ambulatory, Ambulatory, Walker Walker Transportation Private Auto Private Auto Accompanied by Medication Reconcilliation completed & No No provided to patient/care provider Clinical Summary of Care Provided Yes Yes Assessment/Plan Assessment/Plan (1) Non-pressure chronic ulcer of other part of left lower leg with fat layer exposed: CODE(S): L97.822 - Non-pressure chronic ulcer of other part of left lower leg with fat layer exposed PLAN: Patient was examined and evaluated. All findings were discussed with the patient. All questions were answered to the patient's satisfaction. The patient's left leg wound is now healed. Patient was wrapped in CircAid wraps that we had here at the wound care center. Patient and his will continue to look through their home to find the misplaced CircAid wrap that was delivered to them. Educated the patient that they have to find residence so that they can feel more secure about their living condition and help decrease unnecessary stress that they currently have. The patient and his are understanding of this. Patient were educated on the need to continue to wear compression when she is up and ambulating and decrease the likelihood of any type of falls when walking with his rollator. Follow-up at the wound care center with Dr. Dominguez in 2 week. (2) Other specified peripheral vascular diseases: CODE(S): I73.89 - Other specified peripheral vascular diseases
--- NOTE | 2023-09-30 11:21 | WC ---
PHOTO 09/23/23 LEFT [facility]
== END 2023-09-30 23:59 | disposition home or self-care (01) ==
LOC: WC 11:15
PROVIDERS: PCP Family Medicine; Referring Provider Family Medicine; Visit Provider Podiatrist Foot & Ankle Surgery
DX: E11.622 Type 2 diabetes mellitus with other skin ulcer (principal); L97.822 Non-pressure chronic ulcer of other part of left lower leg with fat layer exposed; G20.A1 Parkinson's disease without dyskinesia, without mention of fluctuations; E11.42 Type 2 diabetes mellitus with diabetic polyneuropathy; E11.59 Type 2 diabetes mellitus with other circulatory complications; E11.51 Type 2 diabetes mellitus with diabetic peripheral angiopathy without gangrene; I87.2 Venous insufficiency (chronic) (peripheral); E66.9 Obesity, unspecified; Z68.36 Body mass index [BMI] 36.0-36.9, adult
CPT/HCPCS: 15271; 29581; 99213; Q4186; G0463

== ENCOUNTER 2023-10-14 10:26 | Outpatient (RCR) | payer MEDICARE, SELFPAY ==
[2023-10-01 00:20] VITALS: BP 169/87; PULSE 91; RESP 18; TEMP 36; BMI 29.4
[2023-10-14 10:32] VITALS: BP 151/85; PULSE 101; RESP 18; TEMP 36.2; BMI 29.4
--- NOTE | 2023-10-14 14:49 | PCM.WC.PN ---
History of Present Illness Date of Service: 10/14/23 Chief Complaint: Venous stasis ulceration of the right pretibial area History of Wound: This is an obese 73-year-old diabetic male who presented with a venous stasis ulceration on the right pretibial area. The ulceration has been present for approximately 2 to 3 weeks. However, the patient has had similar occurrences in the past. He has had previous episodes whereby blisters have spontaneously occurred on his distal lower extremities, subsequently erupting into small open wounds. The patient suffers from Parkinson's disease. He is obese, with a BMI of 36.1. His activity is very limited based upon his Parkinson's disease and prior lower extremity fractures. 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 He sleeps in a recliner, with his lower extremities in a dependent position. He ambulates in very limited fashion using a cane. He denies a history of thrombophlebitis. Subjective Subjective Mr. Silva is a 73-year-old diabetic male presented wound care center today for follow-up evaluation of left leg ulceration. Has been compliant with his multilayer compression bandage. He admits that his wound has now healed. He is grateful for his care. Denies trauma. Denies constitutional symptoms. No other pedal complaints at this time. Objective Data Objective Data Vital Signs: Vital Signs Temp Pulse Resp BP O2 Del Method 97.2 F L 101 H 18 151/85 H Room Air 10/14/23 10:32 10/14/23 10:32 10/14/23 10:32 10/14/23 10:32 10/14/23 10:32 Oxygen Delivery Method Room Air Weight: 98.43 kg Body Mass Index (BMI) 29.4 Physical Exam Narrative Vascular: DP and PT pulses are palpable. Nonpitting edema appreciated bilateral extremity. CFT is brisk. Hemosiderin deposit appreciated bilateral. No varicosities noted. Skin temperature great is warm to warm from proximal ankles to distal digit bilateral. Neurological: Light touch intact. Protective station is diminished. Dermatological: Full-thickness ulceration to left leg is now healed. No open lesions or abrasions. Nonpitting edema appreciated bilateral extremity. Toenails 1 through 5 are within normal limits. Webspaces 1-4 are clean dry and intact. Musculoskeletal: Muscle strength is 5 out of 5 in all quadrants. No pain with calf pression Debridement Note Debridement Note Post-Debridement Measurements and Additional Note: Post-Debridement Measurements/Treatment - Nurse 1 - General Ulcer Assessment Start: 10/14/23 10:32 Freq: Status: Active Protocol: ALICE Activity Type Activity Date Activity User E-sign Co-sign Detail Recorded Client Recorded Date Recorded By Document 10/14/23 10:32 [facility] 10/14/23 10:35 10/14/23 10:32 - Today's Visit Information Type of service Follow-up Visit (Physician/[facility] [employer] ) Arrival Mode Ambulatory Patient Identification Verified (Name & Yes ) Height and Weight Body Mass Index (BMI) 29.4 BMI Classification Overweight Vital Signs Temperature (97.8 F-99.1 F) 97.2 F L Temperature Source Temporal Pulse Rate (60-100) 101 H Pulse Location Monitor Respiratory Rate (12-18) 18 Respiratory rate source Observation Oxygen Delivery Method Room Air Blood Pressure (90/60-120/80) 151/85 H Blood Pressure Mean (mm Hg) 107 Source Monitor Position Sitting Blood Pressure Location Left Arm History Since Last Visit- (Skip if this is Patient's initial visit) Have you changed medications since your Yes last visit? Any new allergies or adverse reactions No Had a fall/change in ADL's that may No increase risk of falls Signs or symptoms of abuse and/or No neglect since last visit Have you been in the hospital since your No last visit? Has dressing in place as prescribed Yes Has compression in place as prescribed Yes Has offloadiing in place as prescribed N/A Experienced any changes in pain level or No management Left Footwear Regular Shoe Right Footwear Regular Shoe Pain Scale: 0-10 Numeric Is Patient Pain Free? Yes - Nurse 2 - General Ulcer CM Notes Start: 10/14/23 10:32 Freq: Status: Active Protocol: Activity Type Activity Date Activity User E-sign Co-sign Detail Recorded Client Recorded Date Recorded By Document 10/14/23 11:06 JF 0000 10/14/23 11:07 JF 10/14/23 11:06 Wound Center Nurse 2 #4 inf lt med le -Correct Patient No -Correct Side, Site, Position No -Correct Procedure No -Procedure Performed No -Post Debridement (cm) - Length 0 -Post Debridement (cm) - Width 0 -Post Debridement (cm) - Depth 0 -Total Square (Post) (cm) 0 -Area of Debridement (cm) - Length 0 -Area of Debridement (cm) - Width 0 -Total Square (Area) (cm) 0 -Wound/Ulcer Outcome Healed- Epithelialized Pain Scale: 0-10 Numeric Is Patient Pain Free? Yes WC - Nurse 3 - General Ulcer D/C NN Start: 10/14/23 10:32 Freq: Status: Active Protocol: Activity Type Activity Date Activity User E-sign Co-sign Detail Recorded Client Recorded Date Recorded By Document 10/14/23 11:08 KW asfd 10/14/23 11:09 KW 10/14/23 11:08 Wound Care Center Nurse 3 BLE -Other pt circaids Pain Scale: 0-10 Numeric Is Patient Pain Free? Yes WC - Visit Discharge Discharge Condition Stable Ambulatory Status Ambulatory, Walker Transportation Private Auto Medication Reconcilliation completed & No provided to patient/care provider Clinical Summary of Care Provided Yes Assessment/Plan Assessment/Plan (1) Non-pressure chronic ulcer of other part of left lower leg with fat layer exposed: CODE(S): L97.822 - Non-pressure chronic ulcer of other part of left lower leg with fat layer exposed PLAN: Patient was examined and evaluated. All findings were discussed with the patient. All questions were answered to the patient's satisfaction. Patient's left leg is now healed. He will continue to wear his multilayer compression bandage as instructed. He will continue to check his feet twice per day and continue strict blood sugar protocol. Patient will follow-up as needed. (2) Other specified peripheral vascular diseases: CODE(S): I73.89 - Other specified peripheral vascular diseases
== END 2023-10-14 15:57 | disposition home or self-care (01) ==
LOC: WC 10:26
PROVIDERS: PCP Family Medicine; Referring Provider Family Medicine; Visit Provider Podiatrist Foot & Ankle Surgery
DX: Z09 Encounter for follow-up examination after completed treatment for conditions other than malignant neoplasm (principal); G20.A1 Parkinson's disease without dyskinesia, without mention of fluctuations; E11.59 Type 2 diabetes mellitus with other circulatory complications; E11.42 Type 2 diabetes mellitus with diabetic polyneuropathy; E11.51 Type 2 diabetes mellitus with diabetic peripheral angiopathy without gangrene; I87.2 Venous insufficiency (chronic) (peripheral)
CPT/HCPCS: 99213; G0463

== ENCOUNTER 2023-11-25 13:57 | Outpatient (RCR) | payer MEDICARE, SELFPAY ==
[2023-11-25 13:59] VITALS: BP 157/94; PULSE 93; RESP 14; TEMP 35.8
== END 2023-11-30 23:59 | disposition home or self-care (01) ==
LOC: WC 13:57
PROVIDERS: PCP Family Medicine; Referring Provider Podiatrist Foot & Ankle Surgery; Visit Provider Podiatrist Foot & Ankle Surgery
DX: L97.822 Non-pressure chronic ulcer of other part of left lower leg with fat layer exposed (principal); L97.812 Non-pressure chronic ulcer of other part of right lower leg with fat layer exposed; G20.C Parkinsonism, unspecified; E11.42 Type 2 diabetes mellitus with diabetic polyneuropathy; I87.2 Venous insufficiency (chronic) (peripheral); I73.89 Other specified peripheral vascular diseases; L03.115 Cellulitis of right lower limb
CPT/HCPCS: 11042; 29581; 87070; 87075; 87077; 87186; 87205; 99213; G0463

== ENCOUNTER 2023-12-30 09:15 | Outpatient (RCR) | payer MEDICARE, SELFPAY ==
[2023-12-01 00:48] VITALS: BP 157/94; PULSE 93; RESP 14; TEMP 35.8
[2023-12-02 11:56] VITALS: BP 130/75; PULSE 96; RESP 16; TEMP 36
[2023-12-09 13:57] VITALS: BP 145/86; PULSE 104; RESP 18; TEMP 36.4
--- NOTE | 2023-12-09 14:35 | PN.PCM_ITS ---
History of Present Illness Date of Service: 12/09/23 Chief Complaint: Venous stasis ulceration of the right pretibial area History of Wound: This is an obese 73-year-old diabetic male who presented with a venous stasis ulceration on the right pretibial area. The ulceration has been present for approximately 2 to 3 weeks. However, the patient has had similar occurrences in the past. He has had previous episodes whereby blisters have spontaneously occurred on his distal lower extremities, subsequently erupting into small open wounds. The patient suffers from Parkinson's disease. He is obese, with a BMI of 36.1. His activity is very limited based upon his Parkinson's disease and prior lower extremity fractures. 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 He sleeps in a recliner, with his lower extremities in a dependent position. He ambulates in very li mited fashion using a cane. He denies a history of thrombophlebitis. Subjective Subjective Mr. Silva is a 73-year-old diabetic male presented wound care center today for follow-up evaluation of bilateral leg ulcerations. Patient has left his multilayer compression dressings clean dry and intact. He does admit to minimal elevation whenever at rest. 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 Blood sugar well-controlled. Denies trauma. Denies constitutional symptoms. No other pedal complaints at this time. Objective Data Objective Data Vital Signs: Vital Signs Temp Pulse Resp BP O2 Del Method 97.6 F L 104 H 18 145/86 H Room Air 12/09/23 13:57 12/09/23 13:57 12/09/23 13:57 12/09/23 13:57 12/09/23 13:57 Oxygen Delivery Method Room Air Physical Exam Narrative Vascular: DP and PT pulse are palpable to the bilateral extremity. Blanchable erythema has improved to the bilateral extremity. Nonpitting edema appreciated bilateral lower extremity. Skin temperature is warm to warm from proximal ankles to distal digits. No focal increase is appreciated to bilateral lower extremity. Neurological: Light touch intact. Protective station is diminished. Dermatological: Evidence of contusion to the right hallux. Stable with no sign of infection. Evidence of new full-thickness ulceration to left anterior leg measuring 3.6 x 3.0 x 0.1 cm. Wound base is granular nature. No sign of infection. Bilateral pre-existing ulcerations are now healed. Excisional debridement down to and including subcutaneous tissue with a number 5 mm dermal curette to the left anterior leg without incident. Predebridement measurement was bullae. Postdebridement measurement is 3.6 x 3.0 x 0.1 cm. Musculoskeletal: No pain to palpation to bilateral legs. No pain on palpation to left anterior left upper ulceration. No pain with calf pressure. Debridement Note Debridement Note Debridement Free Text: Excisional debridement down to and including subcutaneous tissue with a number 5 mm dermal curette to the left anterior leg without incident. Predebridement measurement was bullae. Postdebridement measurement is 3.6 x 3.0 x 0.1 cm. Post-Debridement Measurements and Additional Note: Post-Debridement Measurements/Treatment - Nurse 1 - General Ulcer Assessment Start: 12/02/23 11:55 Freq: Status: Active Protocol: WC.LOWEXT Activity Type Activity Date Activity User E-sign Co-sign Detail Recorded Client Recorded Date Recorded By Document 12/02/23 11:56 CP [id number] 12/02/23 12:00 CP Document 12/09/23 13:57 KW [id number] 12/09/23 14:04 KW 12/02/23 12/09/23 11:56 13:57 - Today's Visit Information Type of service Nurse-only Follow-up Visit Visit (Physician/[employer] ) Arrival Mode Ambulatory, Ambulatory, Walker Walker Accompanied by Patient Identification Verified (Name & Yes Yes ) Vital Signs Temperature (97.8 F-99.1 F) 96.8 F L 97.6 F L Temperature Source Temporal Temporal Pulse Rate (60-100) 96 104 H Pulse Location Monitor Monitor Respiratory Rate (12-18) 16 18 Respiratory rate source Observation Observation Oxygen Delivery Method Room Air Blood Pressure (90/60-120/80) 130/75 H 145/86 H Blood Pressure Mean (mm Hg) 93 105 Source Monitor Monitor Position Sitting Sitting Blood Pressure Location Left Arm Left Arm History Since Last Visit- (Skip if this is Patient's initial visit) Have you changed medications since your No last visit? Any new allergies or adverse reactions No Had a fall/change in ADL's that may No increase risk of falls Signs or symptoms of abuse and/or No neglect since last visit Have you been in the hospital since your No last visit? Has dressing in place as prescribed Yes Has compression in place as prescribed Yes Has offloadiing in place as prescribed N/A Experienced any changes in pain level or No management Left Footwear Regular Shoe Right Footwear Regular Shoe Pain Scale: 0-10 Numeric Is Patient Pain Free? Yes Yes WC - Nurse 1 - General Ulcer Measurement Start: 12/02/23 11:55 Freq: Status: Active Protocol: Activity Type Activity Date Activity User E-sign Co-sign Detail Recorded Client Recorded Date Recorded By Document 12/09/23 13:57 KW [id number] 12/09/23 14:04 KW 12/09/23 13:57 Wound Center Nurse 1 #7 RIGHT LE -Combined with other wound No -Current Size (cm) - Length 0.1 -Current Size (cm) - Width 0.1 -Current Size (cm) - Depth 0.1 -Total Square Cm 0.01 -Date of Last Picture (Recall this 12/09/23 field) -Photo Taken Yes -Epithelialization Large 67-100% -Tunneling No -Undermining/Tunneling No -Circular Undermining No -Texture (Coretta-wound Skin Appearance) Assessed -Moisture (Coretta-wound Skin Appearance) Assessed -Color (Coretta-wound Skin Appearance) Assessed -Temperature (Coretta-wound Skin No Abnormality Appearance) (Pt Warm) -Tenderness on Palpation (Coretta-wound No Skin Appearance) -Ulcer Cleansing Rinsed/ Irrigated with Saline -Foul Odor after Cleansing No -Anesthetic Used 5% Lidocaine Gel #6 LLE CLUSTER -Combined with other wound No -Current Size (cm) - Length 0.1 -Current Size (cm) - Width 0.1 -Current Size (cm) - Depth 0.1 -Total Square Cm 0.01 -Date of Last Picture (Recall this 12/09/23 field) -Photo Taken Yes -Epithelialization Large 67-100% -Tunneling No -Undermining/Tunneling No -Circular Undermining No -Exudate Amt Medium -Exudate Type Serosanguineous -Texture (Coretta-wound Skin Appearance) Assessed -Moisture (Coretta-wound Skin Appearance) Assessed,Dry/ Scaly -Color (Coretta-wound Skin Appearance) Assessed -Temperature (Coretta-wound Skin No Abnormality Appearance) (Pt Warm) -Tenderness on Palpation (Coretta-wound No Skin Appearance) -Ulcer Cleansing Soap and Water -Foul Odor after Cleansing No -Anesthetic Used 5% Lidocaine Gel WC - Nurse 2 - General Ulcer CM Notes Start: 12/02/23 11:55 Freq: Status: Active Protocol: Activity Type Activity Date Activity User E-sign Co-sign Detail Recorded Client Recorded Date Recorded By Document 12/09/23 14:23 JF [id number] 12/09/23 14:25 JF 12/09/23 14:23 Wound Center Nurse 2 #7 RIGHT LE -Correct Patient No -Correct Side, Site, Position No -Correct Procedure No -Procedure Performed No -Post Debridement (cm) - Length 0 -Post Debridement (cm) - Width 0 -Post Debridement (cm) - Depth 0 -Total Square (Post) (cm) 0 -Area of Debridement (cm) - Length 0 -Area of Debridement (cm) - Width 0 -Total Square (Area) (cm) 0 -Wound/Ulcer Outcome Healed- Epithelialized #6 LLE CLUSTER -Time 14:24 -Correct Patient Yes -Correct Side, Site, Position Yes -Correct Procedure Yes -Procedure Performed Yes -Type of Procedure Debridement -Clinical Debridement Subcutaneous -Tissue Removed Subcutaneous -Post Debridement (cm) - Length 3.6 -Post Debridement (cm) - Width 3 -Post Debridement (cm) - Depth 0.1 -Total Square (Post) (cm) 10.8 -Area of Debridement (cm) - Length 3.6 -Area of Debridement (cm) - Width 3.0 -Total Square (Area) (cm) 10.80 -Tunneling No -Undermining/Tunneling No -Circular Undermining No -Wound/Ulcer Outcome Not Healed -Ulcer Cleansing Rinsed/ Irrigated with Saline -Foul Odor after Cleansing No -Bioengineered Tissue No -Bleeding Controlled with Pressure -Treatment Response Procedure Tolerated Well -Offloading No -Debridement - Subq, 1st 20sq cm Yes Pain Scale: 0-10 Numeric Is Patient Pain Free? Yes WC - Nurse 3 - General Ulcer D/C NN Start: 12/02/23 11:55 Freq: Status: Active Protocol: Activity Type Activity Date Activity User E-sign Co-sign Detail Recorded Client Recorded Date Recorded By Document 12/02/23 11:56 CP [id number] 12/02/23 12:00 CP Edit Result 12/02/23 11:56 CP (1) [id number] 12/03/23 09:54 DS Document 12/03/23 09:50 DS [id number] 12/03/23 09:53 DS (1) Left - Multi-Layered Wrap Application Multi-Layer Comp - => Left ($) => Right - Multi-Layered Wrap Application Multi-Layer Comp - => Right ($) => 12/02/23 12/03/23 11:56 09:50 Vital Signs Temperature (97.8 F-99.1 F) 96.8 F L Temperature Source Temporal Pulse Rate (60-100) 96 Pulse Location Monitor Respiratory Rate (12-18) 16 Respiratory rate source Observation Blood Pressure (90/60-120/80) 130/75 H Blood Pressure Mean (mm Hg) 93 Source Monitor Position Sitting Blood Pressure Location Left Arm Pain Scale: 0-10 Numeric Is Patient Pain Free? Yes Yes Wound Care Center Nurse 3 #7 RIGHT LE -Ulcer Cleansing Soap and Water -Primary Dressing Applied Optilok 6.5x10 -Primary Dressing Covered/Secured with Dry Gauze & Roll Gauze -Optilok 6.5x10 1 #6 LLE CLUSTER -Ulcer Cleansing Soap and Water -Primary Dressing Applied Optilok 8x12 -Primary Dressing Covered/Secured with Dry Gauze & Roll Gauze -Optilok 6.5x10 1 -Optilok 8x12 0 B/L -Multi-Layered Wrap Application Multi-Layer Comp - Bilat ($ ) WC - Visit Discharge Discharge Condition Stable Ambulatory Status Ambulatory, Walker Transportation Private Auto Assessment/Plan Assessment/Plan (1) Contusion of right great toe without damage to nail: CODE(S): S90.111A - Contusion of right great toe without damage to nail, initial encounter QUALIFIERS: Encounter type: initial encounter Qualified Code(s): S90.111A - Contusion of right great toe without damage to nail, initial encounte r PLAN: Patient was examined and evaluated. All findings were discussed with the patient. All questions were answered to the patient's satisfaction. Excisional debridement down to and including subcutaneous tissue with a number 5 mm dermal curette to the left anterior leg without incident. Predebridement measurement was bullae. Postdebridement measurement is 3.6 x 3.0 x 0.1 cm. B ilateral lower extremities were cleaned and patted dry. Aquacel Ag was applied to the left anterior leg ulceration. Next, dry sterile dressing was applied to the left leg. Multilayer 3M wraps were applied to bilateral lower extremity. Patient will follow-up with nursing visit on Thursday versus Thursday and follow-up with Dr. Dominguez in 1 week. Band paint was applied to the right hallux and covered with sterile Band-Aid. Patient's will perform daily dressing changes as instructed. Follow-up at the wound care center with Dr. Dominguez in 1 week. (2) Non-pressure chronic ulcer of other part of left lower leg with fat layer exposed: CODE(S): L97.822 - Non-pressure chronic ulcer of other part of left lower leg with fat layer exposed
--- NOTE | 2023-12-10 09:50 | WC ---
PHOTO 12/09/23 EVELYN FELDER
[2023-12-17 12:31] VITALS: BP 151/79; PULSE 92; RESP 18; TEMP 35.9
[2023-12-23 13:38] VITALS: BP 153/76; PULSE 98; RESP 18; TEMP 36
--- NOTE | 2023-12-23 14:05 | PCM.WC.PN ---
History of Present Illness Date of Service: 12/23/23 Chief Complaint: Venous stasis ulceration of the right pretibial area History of Wound: This is an obese 73-year-old diabetic male who presented with a venous stasis ulceration on the right pretibial area. The ulceration has been present for approximately 2 to 3 weeks. However, the patient has had similar occurrences in the past. He has had previous episodes whereby blisters have spontaneously occurred on his distal lower extremities, subsequently erupting into small open wounds. The patient suffers from Parkinson's disease. He is obese, with a BMI of 36.1. His activity is very limited based upon his Parkinson's disease and prior lower extremity fractures. 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 He sleeps in a recliner, with his lower extremities in a dependent position. He ambulates in very limited fashion using a cane. He denies a history of thrombophlebitis. Subjective Subjective Mr. Silva is a 73-year-old diabetic male presenting to clinic today with chief complaint of bilateral leg swelling. Patient has kept his compression wraps clean dry and intact. He does admit to blistering throughout his whole body, abdomen, arms, hands and upper legs. Patient is unsure why this is happening. He admits this happened approximately 1 week ago. No treatment thus far. Denies trauma. Denies constitutional symptoms. Other complaints at this time. Objective Data Objective Data Vital Signs: Vital Signs Temp Pulse Resp BP O2 Del Method 96.8 F L 98 18 153/76 H Room Air 12/23/23 13:38 12/23/23 13:38 12/23/23 13:38 12/23/23 13:38 12/23/23 13:38 Oxygen Delivery Method Room Air Physical Exam Narrative Vascular: DP and PT pulse are palpable to the bilateral extremity. Blanchable erythema has improved to the bilateral extremity. Nonpitting edema appreciated bilateral lower extremity. Skin temperature is warm to warm from proximal ankles to distal digits. No focal increase is appreciated to bilateral lower extremity. Neurological: Light touch intact. Protective station is diminished. Dermatological: Evidence of fluid-filled blisters throughout the bilateral lower extremity. There is also evidence of fluid-filled blisters on the abdomen and upper extremities. Cannot rule out infection at this time. Musculoskeletal: No pain to palpation to bilateral legs. No pain on palpation to left anterior left upper ulceration. No pain to the upper extremity or abdomen. No pain with calf pressure. Debridement Note Debridement Note Post-Debridement Measurements and Additional Note: Post-Debridement Measurements/Treatment WC - Nurse 1 - General Ulcer Assessment Start: 12/02/23 11:55 Freq: Status: Active Protocol: [facility] Activity Type Activity Date Activity User E-sign Co-sign Detail Recorded Client Recorded Date Recorded By Document 12/02/23 11:56 CP [id number] 12/02/23 12:00 CP Document 12/09/23 13:57 KW [id number] 12/09/23 14:04 KW Document 12/17/23 12:31 RB [id number] 12/17/23 12:33 RB Document 12/23/23 13:38 KW [id number] 12/23/23 13:59 KW 12/02/23 12/09/23 12/17/23 11:56 13:57 12:31 - Today's Visit Information Type of service Nurse-only Follow-up Visit Nurse-only Visit (Physician/EXCELLENCE LEADER Visit ) Arrival Mode Ambulatory, Ambulatory, Ambulatory Walker Walker Transfer Assistance None Accompanied by Patient Identification Verified (Name & Yes Yes Yes ) Patient Requires Transmission-Based No Precautions Vital Signs Temperature (97.8 F-99.1 F) 96.8 F L 97.6 F L 96.6 F L Temperature Source Temporal Temporal Temporal Pulse Rate (60-100) 96 104 H 92 Pulse Location Monitor Monitor Monitor Respiratory Rate (12-18) 16 18 18 Respiratory rate source Observation Observation Observation Oxygen Delivery Method Room Air Blood Pressure (90/60-120/80) 130/75 H 145/86 H 151/79 H Blood Pressure Mean (mm Hg) 93 105 103 Source Monitor Monitor Monitor Position Sitting Sitting Semi-Fowlers Blood Pressure Location Left Arm Left Arm Left Arm History Since Last Visit- (Skip if this is Patient's initial visit) Have you changed medications since your No No last visit? Any new allergies or adverse reactions No No Had a fall/change in ADL's that may No No increase risk of falls Signs or symptoms of abuse and/or No No neglect since last visit Have you been in the hospital since your No No last visit? Has dressing in place as prescribed Yes Yes Has compression in place as prescribed Yes No Has offloadiing in place as prescribed N/A No Experienced any changes in pain level or No No management Left Footwear Regular Shoe Right Footwear Regular Shoe Pain Scale: 0-10 Numeric Is Patient Pain Free? Yes Yes Yes 12/23/23 13:38 WC - Today's Visit Information Type of service Follow-up Visit (Physician/EXCELLENCE LEADER ) Arrival Mode Wheelchair Transfer Assistance Accompanied by Patient Identification Verified (Name & Yes ) Patient Requires Transmission-Based Precautions Vital Signs Temperature (97.8 F-99.1 F) 96.8 F L Temperature Source Temporal Pulse Rate (60-100) 98 Pulse Location Monitor Respiratory Rate (12-18) 18 Respiratory rate source Observation Oxygen Delivery Method Room Air Blood Pressure (90/60-120/80) 153/76 H Blood Pressure Mean (mm Hg) 101 Source Monitor Position Sitting Blood Pressure Location Left Arm History Since Last Visit- (Skip if this is Patient's initial visit) Have you changed medications since your No last visit? Any new allergies or adverse reactions No Had a fall/change in ADL's that may No increase risk of falls Signs or symptoms of abuse and/or No neglect since last visit Have you been in the hospital since your No last visit? Has dressing in place as prescribed Yes Has compression in place as prescribed Yes Has offloadiing in place as prescribed N/A Experienced any changes in pain level or No management Left Footwear Regular Shoe Right Footwear Regular Shoe Pain Scale: 0-10 Numeric Is Patient Pain Free? Yes - Nurse 1 - General Ulcer Measurement Start: 12/02/23 11:55 Freq: Status: Active Protocol: Activity Type Activity Date Activity User E-sign Co-sign Detail Recorded Client Recorded Date Recorded By Document 12/09/23 13:57 KW [id number] 12/09/23 14:04 KW Document 12/17/23 12:31 RB [id number] 12/17/23 12:33 RB Document 12/23/23 13:38 KW [id number] 12/23/23 13:59 KW 12/09/23 12/17/23 12/23/23 13:57 12:31 13:38 Wound Center Nurse 1 #7 RIGHT LE -Combined with other wound No -Current Size (cm) - Length 0.1 -Current Size (cm) - Width 0.1 -Current Size (cm) - Depth 0.1 -Total Square Cm 0.01 -Date of Last Picture (Recall this 12/09/23 field) -Photo Taken Yes -Epithelialization Large 67-100% -Tunneling No -Undermining/Tunneling No -Circular Undermining No -Texture (Coretta-wound Skin Appearance) Assessed -Moisture (Coretta-wound Skin Appearance) Assessed -Color (Coretta-wound Skin Appearance) Assessed -Temperature (Coretta-wound Skin No Abnormality Appearance) (Pt Warm) -Tenderness on Palpation (Coretta-wound No Skin Appearance) -Ulcer Cleansing Rinsed/ Irrigated with Saline -Foul Odor after Cleansing No -Anesthetic Used 5% Lidocaine Gel #6 LLE CLUSTER -Combined with other wound No -Current Size (cm) - Length 0.1 0.1 -Current Size (cm) - Width 0.1 0.1 -Current Size (cm) - Depth 0.1 0.1 -Total Square Cm 0.01 0.01 -Date of Last Picture (Recall this 12/09/23 field) -Photo Taken Yes -Epithelialization Large 67-100% -Tunneling No -Undermining/Tunneling No -Circular Undermining No -Exudate Amt Medium -Exudate Type Serosanguineous -Texture (Coretta-wound Skin Appearance) Assessed -Moisture (Coretta-wound Skin Appearance) Assessed,Dry/ Scaly -Color (Coretta-wound Skin Appearance) Assessed -Temperature (Coretta-wound Skin No Abnormality Appearance) (Pt Warm) -Tenderness on Palpation (Coretta-wound No Skin Appearance) -Ulcer Cleansing Soap and Water -Foul Odor after Cleansing No -Anesthetic Used 5% Lidocaine Gel -Wound Comment(s) pt going to ER Lower Limb Edema Present Yes Right Calf (cm) 38.9 Right Ankle (cm) 23 Left Calf (cm) 42.5 Left Ankle (cm) 23 WC - Nurse 2 - General Ulcer CM Notes Start: 12/02/23 11:55 Freq: Status: Active Protocol: Activity Type Activity Date Activity User E-sign Co-sign Detail Recorded Client Recorded Date Recorded By Document 12/09/23 14:23 KYRA [id number] 12/09/23 14:25 KYRA 12/09/23 14:23 Wound Center Nurse 2 #7 RIGHT LE -Correct Patient No -Correct Side, Site, Position No -Correct Procedure No -Procedure Performed No -Post Debridement (cm) - Length 0 -Post Debridement (cm) - Width 0 -Post Debridement (cm) - Depth 0 -Total Square (Post) (cm) 0 -Area of Debridement (cm) - Length 0 -Area of Debridement (cm) - Width 0 -Total Square (Area) (cm) 0 -Wound/Ulcer Outcome Healed- Epithelialized #6 LLE CLUSTER -Time 14:24 -Correct Patient Yes -Correct Side, Site, Position Yes -Correct Procedure Yes -Procedure Performed Yes -Type of Procedure Debridement -Clinical Debridement Subcutaneous -Tissue Removed Subcutaneous -Post Debridement (cm) - Length 3.6 -Post Debridement (cm) - Width 3 -Post Debridement (cm) - Depth 0.1 -Total Square (Post) (cm) 10.8 -Area of Debridement (cm) - Length 3.6 -Area of Debridement (cm) - Width 3.0 -Total Square (Area) (cm) 10.80 -Tunneling No -Undermining/Tunneling No -Circular Undermining No -Wound/Ulcer Outcome Not Healed -Ulcer Cleansing Rinsed/ Irrigated with Saline -Foul Odor after Cleansing No -Bioengineered Tissue No -Bleeding Controlled with Pressure -Treatment Response Procedure Tolerated Well -Offloading No -Debridement - Subq, 1st 20sq cm Yes Pain Scale: 0-10 Numeric Is Patient Pain Free? Yes WC - Nurse 3 - General Ulcer D/C NN Start: 12/02/23 11:55 Freq: Status: Active Protocol: Activity Type Activity Date Activity User E-sign Co-sign Detail Recorded Client Recorded Date Recorded By Document 12/02/23 11:56 CP [id number] 12/02/23 12:00 CP Edit Result 12/02/23 11:56 CP (1) [id number] 12/03/23 09:54 DS Document 12/03/23 09:50 DS [id number] 12/03/23 09:53 DS Document 12/10/23 12:03 JF 0000 12/10/23 12:04 JF Document 12/17/23 12:31 RB [id number] 12/17/23 12:33 RB (1) Left - Multi-Layered Wrap Application Multi-Layer Comp - => Left ($) => Right - Multi-Layered Wrap Application Multi-Layer Comp - => Right ($) => 12/02/23 12/03/23 12/10/23 11:56 09:50 12:03 Vital Signs Temperature (97.8 F-99.1 F) 96.8 F L Temperature Source Temporal Pulse Rate (60-100) 96 Pulse Location Monitor Respiratory Rate (12-18) 16 Respiratory rate source Observation Blood Pressure (90/60-120/80) 130/75 H Blood Pressure Mean (mm Hg) 93 Source Monitor Position Sitting Blood Pressure Location Left Arm Pain Scale: 0-10 Numeric Is Patient Pain Free? Yes Yes Yes Wound Care Center Nurse 3 #7 RIGHT LE -Ulcer Cleansing Soap and Water -Primary Dressing Applied Optilok 6.5x10 -Primary Dressing Covered/Secured with Dry Gauze & Roll Gauze -Optilok 6.5x10 1 #6 LLE CLUSTER -Ulcer Cleansing Soap and Water Rinsed/ Irrigated with Saline -Primary Dressing Applied Optilok 8x12 Aquacel AG 2x2 -Primary Dressing Covered/Secured with Dry Gauze & Dry Gauze Roll Gauze -Aquacel AG 2x2 1 -Optilok 6.5x10 1 -Optilok 8x12 0 B/L -Lotion applied to leg before compression wrap -Multi-Layered Wrap Application Multi-Layer Multi-Layer Comp - Bilat ($ Comp - Bilat ($ ) ) Treatment Response WC - Visit Discharge Discharge Condition Stable Stable Ambulatory Status Ambulatory, Ambulatory, Walker Walker Transportation Private Auto Private Auto Accompanied by Medication Reconcilliation completed & No provided to patient/care provider Clinical Summary of Care Provided No Notes: bandaid to right hallux 12/17/23 12:31 Vital Signs Temperature (97.8 F-99.1 F) 96.6 F L Temperature Source Temporal Pulse Rate (60-100) 92 Pulse Location Monitor Respiratory Rate (12-18) 18 Respiratory rate source Observation Blood Pressure (90/60-120/80) 151/79 H Blood Pressure Mean (mm Hg) 103 Source Monitor Position Semi-Fowlers Blood Pressure Location Left Arm Pain Scale: 0-10 Numeric Is Patient Pain Free? Yes Wound Care Center Nurse 3 #7 RIGHT LE -Ulcer Cleansing -Primary Dressing Applied -Primary Dressing Covered/Secured with -Optilok 6.5x10 #6 LLE CLUSTER -Ulcer Cleansing Wound Cleanser -Primary Dressing Applied Aquacel AG 2x2 -Primary Dressing Covered/Secured with Dry Gauze -Aquacel AG 2x2 1 -Optilok 6.5x10 -Optilok 8x12 B/L -Lotion applied to leg before Yes compression wrap -Multi-Layered Wrap Application Multi-Layer Comp - Bilat ($ ) Treatment Response Procedure Tolerated Well WC - Visit Discharge Discharge Condition Stable Ambulatory Status Wheelchair Transportation Private Auto Accompanied by Medication Reconcilliation completed & No provided to patient/care provider Clinical Summary of Care Provided Yes Notes: Assessment/Plan Assessment/Plan (1) Acute bullous dermatitis: CODE(S): L13.9 - Bullous disorder, unspecified PLAN: Patient was examined and evaluated. All findings were discussed with the patient. All questions were answered to the patient's satisfaction. Patient shows evidence of a systemic dermatitis with evidence of fluid-filled blisters throughout the upper and lower extremity as well as the abdomen. The patient did not show any blistering to the back. I educated the patient as his this is most likely from something that is being applied to the patient or something that he is washing his body with. The patient and his are unsure why this is happening. I stressed to the patient that they should present to [facility] for evaluation by the emergency department and possible admission with infectious disease consultation. They declined and will be heading out to their emergency room department in [place]. They will call the wound care center to give report once they are updated on the patient's condition. The macerated tissue was dressed with Betadine paint dry sterile dressing and bilateral Tubigrip's were donned to the bilateral lower extremity. Follow-up at the wound care center with Dr. Dominguez in 1 week. 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
--- NOTE | 2023-12-23 16:37 | NURSING ---
Pt came in today for regular wound center visit. Was sent to ER d/t being covered head to toe with blisters, hives and rash. Pt states he is feeling weaker, recently fell and is having periods of feeling hot and cold. in room and states she will take him to a hospital ER closer to their residence.
[2023-12-30 10:08] VITALS: BP 168/74; PULSE 99; RESP 18; TEMP 36.1
--- NOTE | 2023-12-30 10:43 | PCM.WC.PN ---
History of Present Illness Date of Service: 12/30/23 Chief Complaint: Venous stasis ulceration of the right pretibial area History of Wound: This is an obese 73-year-old diabetic male who presented with a venous stasis ulceration on the right pretibial area. The ulceration has been present for approximately 2 to 3 weeks. However, the patient has had similar occurrences in the past. He has had previous episodes whereby blisters have spontaneously occurred on his distal lower extremities, subsequently erupting into small open wounds. The patient suffers from Parkinson's disease. He is obese, with a BMI of 36.1. His activity is very limited based upon his Parkinson's disease and prior lower extremity fractures. 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 He sleeps in a recliner, with his lower extremities in a dependent position. He ambulates in very limited fashion using a cane. He denies a history of thrombophlebitis. Subjective Subjective Mr. Silva is a 73-year-old diabetic male presenting the wound care center today for follow-up evaluation of multiple fluid-filled blisters which were seen during last visit. Patient did present to emergency department at [facility] and was diagnosed with pemphigus vulgaris. Since then the patient has been on steroids and has noticed improvement to his bilateral and upper extremity blisters. Patient and his are like referral to a closer wound care center. He is getting home health care through [facility] at this time. He admits to 2 falls last week. Denies constitutional symptoms. No other pedal complaints at this time. Objective Data Objective Data Vital Signs: Vital Signs Temp Pulse Resp BP O2 Del Method 97 F L 99 18 168/74 H Room Air 12/30/23 10:08 12/30/23 10:08 12/30/23 10:08 12/30/23 10:08 12/30/23 10:08 Oxygen Delivery Method Room Air Physical Exam Narrative Vascular: DP and PT pulses are palpable to the bilateral extremity. Blanchable erythema has improved to the bilateral lower extremity. Nonpitting edema appreciated to the bilateral lower extremity. Skin temperature gradient is warm to warm from proximal ankles to distal digits bilateral. No focal increase is noted. Hemosiderin deposit appreciated bilateral. Neurological: Light touch intact. Protective sensation is diminished. Dermatological: Multiple fluid-filled blisters have improved to the bilateral lower extremity. Evidence of full-thickness wound to the left leg measuring 5.5 x 5.4 x 0.1 cm. Evidence of full-thickness wound to the left third digit measuring 1.3 x 1.3 x 0.1 cm. Evidence of partial thickness wound to the right calf measuring 2.6 x 1.0 x 0.1 cm. All wound bases are 100% granular nature. Excisional debridement down to and including subcutaneous tissue of the left leg ulceration with a number 5 mm dermal curette without incident. Predebridement measurement was 5.0 x 5.0 x 0.1 cm. Postdebridement measurement was 5.5 x 5.4 x 0.1 cm. Excisional debridement down to and including subcutaneous tissue to the left foot third digit ulceration with a number 5 mm dermal curette without incident. Predebridement measurement was 1.0 x 1.0 x 0.1 cm. Postdebridement measurement is 1.3 x 1.3 x 0.1 cm. Excision debridement down to and including subcutaneous tissue of the right leg calf region ulceration with a number 5 mm dermal curette without incident. Predebridement measurement was 2.5 x 0.8 x 0.1 cm. Postdebridement measurement is 2.6 x 1.0 x 0.1 cm. Musculoskeletal: No pain to palpation of full-thickness wounds bilateral. No pain with calf pressure. Debridement Note Debridement Note Debridement Free Text: Excisional debridement down to and including subcutaneous tissue of the left leg ulceration with a number 5 mm dermal curette without incident. Predebridement measurement was 5.0 x 5.0 x 0.1 cm. Postdebridement measurement was 5.5 x 5.4 x 0.1 cm. Excisional debridement down to and including subcutaneous tissue to the left foot third digit ulceration with a number 5 mm dermal curette without incident. Predebridement measurement was 1.0 x 1.0 x 0.1 cm. Postdebridement measurement is 1.3 x 1.3 x 0.1 cm. Excision debridement down to and including subcutaneous tissue of the right leg calf region ulceration with a number 5 mm dermal curette without incident. Predebridement measurement was 2.5 x 0.8 x 0.1 cm. Postdebridement measurement is 2.6 x 1.0 x 0.1 cm. Post-Debridement Measurements and Additional Note: Post-Debridement Measurements/Treatment - Nurse 1 - General Ulcer Assessment Start: 12/02/23 11:55 Freq: Status: Active Protocol: ALICE Activity Type Activity Date Activity User E-sign Co-sign Detail Recorded Client Recorded Date Recorded By Document 12/02/23 11:56 CP [id number] 12/02/23 12:00 CP Document 12/09/23 13:57 KW [id number] 12/09/23 14:04 KW Document 12/17/23 12:31 RB [id number] 12/17/23 12:33 RB Document 12/23/23 13:38 KW [id number] 12/23/23 13:59 KW Document 12/30/23 10:08 KW [id number] 12/30/23 10:13 KW 12/02/23 12/09/23 12/17/23 11:56 13:57 12:31 - Today's Visit Information Type of service Nurse-only Follow-up Visit Nurse-only Visit (Physician/ANIMAL KEEPER Visit ) Arrival Mode Ambulatory, Ambulatory, Ambulatory Walker Walker Transfer Assistance None Accompanied by Patient Identification Verified (Name & Yes Yes Yes ) Patient Requires Transmission-Based No Precautions Vital Signs Temperature (97.8 F-99.1 F) 96.8 F L 97.6 F L 96.6 F L Temperature Source Temporal Temporal Temporal Pulse Rate (60-100) 96 104 H 92 Pulse Location Monitor Monitor Monitor Respiratory Rate (12-18) 16 18 18 Respiratory rate source Observation Observation Observation Oxygen Delivery Method Room Air Blood Pressure (90/60-120/80) 130/75 H 145/86 H 151/79 H Blood Pressure Mean (mm Hg) 93 105 103 Source Monitor Monitor Monitor Position Sitting Sitting Semi-Fowlers Blood Pressure Location Left Arm Left Arm Left Arm History Since Last Visit- (Skip if this is Patient's initial visit) Have you changed medications since your No No last visit? Any new allergies or adverse reactions No No Had a fall/change in ADL's that may No No increase risk of falls Signs or symptoms of abuse and/or No No neglect since last visit Have you been in the hospital since your No No last visit? Has dressing in place as prescribed Yes Yes Has compression in place as prescribed Yes No Has offloadiing in place as prescribed N/A No Experienced any changes in pain level or No No management Left Footwear Regular Shoe Right Footwear Regular Shoe Pain Scale: 0-10 Numeric Is Patient Pain Free? Yes Yes Yes 12/23/23 12/30/23 13:38 10:08 - Today's Visit Information Type of service Follow-up Visit Follow-up Visit (Physician/ANIMAL KEEPER (Physician/ANIMAL KEEPER ) ) Arrival Mode Wheelchair Wheelchair Transfer Assistance Accompanied by Patient Identification Verified (Name & Yes Yes ) Patient Requires Transmission-Based Precautions Vital Signs Temperature (97.8 F-99.1 F) 96.8 F L 97 F L Temperature Source Temporal Temporal Pulse Rate (60-100) 98 99 Pulse Location Monitor Monitor Respiratory Rate (12-18) 18 18 Respiratory rate source Observation Observation Oxygen Delivery Method Room Air Room Air Blood Pressure (90/60-120/80) 153/76 H 168/74 H Blood Pressure Mean (mm Hg) 101 105 Source Monitor Monitor Position Sitting Semi-Fowlers Blood Pressure Location Left Arm Left Arm History Since Last Visit- (Skip if this is Patient's initial visit) Have you changed medications since your No No last visit? Any new allergies or adverse reactions No No Had a fall/change in ADL's that may No Yes increase risk of falls Signs or symptoms of abuse and/or No No neglect since last visit Have you been in the hospital since your No Yes last visit? Has dressing in place as prescribed Yes Yes Has compression in place as prescribed Yes N/A Has offloadiing in place as prescribed N/A N/A Experienced any changes in pain level or No No management Left Footwear Regular Shoe Regular Shoe Right Footwear Regular Shoe Regular Shoe Pain Scale: 0-10 Numeric Is Patient Pain Free? Yes Yes - Nurse 1 - General Ulcer Measurement Start: 12/02/23 11:55 Freq: Status: Active Protocol: Activity Type Activity Date Activity User E-sign Co-sign Detail Recorded Client Recorded Date Recorded By Document 12/09/23 13:57 KW [id number] 12/09/23 14:04 KW Document 12/17/23 12:31 RB [id number] 12/17/23 12:33 RB Document 12/23/23 13:38 KW [id number] 12/23/23 13:59 KW Document 12/30/23 10:08 KW [id number] 12/30/23 10:13 KW 12/09/23 12/17/23 12/23/23 13:57 12:31 13:38 Wound Center Nurse 1 #8 rt 3rd toe -Current Size (cm) - Length -Current Size (cm) - Width -Current Size (cm) - Depth -Total Square Cm -Exudate Amt -Exudate Type -Wound Margin -Granulation Amt -Granulation Quality -Texture (Coretta-wound Skin Appearance) -Moisture (Coretta-wound Skin Appearance) -Color (Coretta-wound Skin Appearance) -Temperature (Coretta-wound Skin Appearance) -Tenderness on Palpation (Coretta-wound Skin Appearance) -Ulcer Cleansing -Foul Odor after Cleansing -Anesthetic Used #7 RIGHT LE -Combined with other wound No -Current Size (cm) - Length 0.1 -Current Size (cm) - Width 0.1 -Current Size (cm) - Depth 0.1 -Total Square Cm 0.01 -Date of Last Picture (Recall this 12/09/23 field) -Photo Taken Yes -Epithelialization Large 67-100% -Tunneling No -Undermining/Tunneling No -Circular Undermining No -Texture (Coretta-wound Skin Appearance) Assessed -Moisture (Coretta-wound Skin Appearance) Assessed -Color (Coretta-wound Skin Appearance) Assessed -Temperature (Coretta-wound Skin No Abnormality Appearance) (Pt Warm) -Tenderness on Palpation (Coretta-wound No Skin Appearance) -Ulcer Cleansing Rinsed/ Irrigated with Saline -Foul Odor after Cleansing No -Anesthetic Used 5% Lidocaine Gel #6 LLE CLUSTER -Combined with other wound No -Current Size (cm) - Length 0.1 0.1 -Current Size (cm) - Width 0.1 0.1 -Current Size (cm) - Depth 0.1 0.1 -Total Square Cm 0.01 0.01 -Date of Last Picture (Recall this 12/09/23 field) -Photo Taken Yes -Epithelialization Large 67-100% -Tunneling No -Undermining/Tunneling No -Circular Undermining No -Exudate Amt Medium -Exudate Type Serosanguineous -Wound Margin -Granulation Amt -Granulation Quality -Texture (Coretta-wound Skin Appearance) Assessed -Moisture (Coretta-wound Skin Appearance) Assessed,Dry/ Scaly -Color (Coretta-wound Skin Appearance) Assessed -Temperature (Coretta-wound Skin No Abnormality Appearance) (Pt Warm) -Tenderness on Palpation (Coretta-wound No Skin Appearance) -Ulcer Cleansing Soap and Water -Foul Odor after Cleansing No -Anesthetic Used 5% Lidocaine Gel -Wound Comment(s) pt going to ER Lower Limb Edema Present Yes Right Calf (cm) 38.9 Right Ankle (cm) 23 Left Calf (cm) 42.5 Left Ankle (cm) 23 12/30/23 10:08 Wound Center Nurse 1 #8 rt 3rd toe -Current Size (cm) - Length 1 -Current Size (cm) - Width 1.2 -Current Size (cm) - Depth 0.1 -Total Square Cm 1.2 -Exudate Amt Small -Exudate Type Serosanguineous -Wound Margin Distinct, Outline Attached -Granulation Amt Large (67-100%) -Granulation Quality Red -Texture (Coretta-wound Skin Appearance) Assessed -Moisture (Coretta-wound Skin Appearance) Assessed -Color (Coretta-wound Skin Appearance) Assessed -Temperature (Coretta-wound Skin No Abnormality Appearance) (Pt Warm) -Tenderness on Palpation (Coretta-wound No Skin Appearance) -Ulcer Cleansing Rinsed/ Irrigated with Saline -Foul Odor after Cleansing No -Anesthetic Used 5% Lidocaine Gel #7 RIGHT LE -Combined with other wound -Current Size (cm) - Length -Current Size (cm) - Width -Current Size (cm) - Depth -Total Square Cm -Date of Last Picture (Recall this field) -Photo Taken -Epithelialization -Tunneling -Undermining/Tunneling -Circular Undermining -Texture (Coretta-wound Skin Appearance) -Moisture (Coretta-wound Skin Appearance) -Color (Coretta-wound Skin Appearance) -Temperature (Coretta-wound Skin Appearance) -Tenderness on Palpation (Coretta-wound Skin Appearance) -Ulcer Cleansing -Foul Odor after Cleansing -Anesthetic Used #6 LLE CLUSTER -Combined with other wound -Current Size (cm) - Length 5.5 -Current Size (cm) - Width 4 -Current Size (cm) - Depth 0.1 -Total Square Cm 22.0 -Date of Last Picture (Recall this field) -Photo Taken -Epithelialization -Tunneling -Undermining/Tunneling -Circular Undermining -Exudate Amt Large -Exudate Type Serosanguineous -Wound Margin Distinct, Outline Attached -Granulation Amt Large (67-100%) -Granulation Quality Red -Texture (Coretta-wound Skin Appearance) Assessed -Moisture (Coretta-wound Skin Appearance) Assessed -Color (Coretta-wound Skin Appearance) Assessed -Temperature (Coretta-wound Skin No Abnormality Appearance) (Pt Warm) -Tenderness on Palpation (Coretta-wound No Skin Appearance) -Ulcer Cleansing Rinsed/ Irrigated with Saline -Foul Odor after Cleansing No -Anesthetic Used 5% Lidocaine Gel -Wound Comment(s) Lower Limb Edema Present Right Calf (cm) 43.5 Right Ankle (cm) 24 Left Calf (cm) 45 Left Ankle (cm) 26 WC - Nurse 2 - General Ulcer CM Notes Start: 12/02/23 11:55 Freq: Status: Active Protocol: Activity Type Activity Date Activity User E-sign Co-sign Detail Recorded Client Recorded Date Recorded By Document 12/09/23 14:23 [id number] 12/09/23 14:25 JF Document 12/30/23 10:24 [id number] 12/30/23 10:26 JF 12/09/23 12/30/23 14:23 10:24 Wound Center Nurse 2 #8 rt 3rd toe -Time 10:24 -Correct Patient Yes -Correct Side, Site, Position Yes -Correct Procedure Yes -Procedure Performed Yes -Type of Procedure Debridement -Clinical Debridement Subcutaneous -Tissue Removed Subcutaneous -Post Debridement (cm) - Length 1.3 -Post Debridement (cm) - Width 1.3 -Post Debridement (cm) - Depth 0.1 -Total Square (Post) (cm) 1.69 -Area of Debridement (cm) - Length 1.3 -Area of Debridement (cm) - Width 1.3 -Total Square (Area) (cm) 1.69 -Tunneling No -Undermining/Tunneling No -Circular Undermining No -Wound/Ulcer Outcome Not Healed -Ulcer Cleansing Rinsed/ Irrigated with Saline -Foul Odor after Cleansing No -Bioengineered Tissue No -Bleeding Controlled with Pressure -Treatment Response Procedure Tolerated Well -Offloading No -Debridement - Subq, 1st 20sq cm No #7 RIGHT LE -Time 10:25 -Correct Patient No Yes -Correct Side, Site, Position No Yes -Correct Procedure No Yes -Procedure Performed No Yes -Type of Procedure Debridement -Clinical Debridement Epidermis / Dermis -Tissue Removed Epidermis, Dermis -Post Debridement (cm) - Length 0 2.6 -Post Debridement (cm) - Width 0 1.0 -Post Debridement (cm) - Depth 0 0.1 -Total Square (Post) (cm) 0 2.60 -Area of Debridement (cm) - Length 0 2.6 -Area of Debridement (cm) - Width 0 1.0 -Total Square (Area) (cm) 0 2.60 -Tunneling No -Undermining/Tunneling No -Circular Undermining No -Wound/Ulcer Outcome Healed- Not Healed Epithelialized -Ulcer Cleansing Rinsed/ Irrigated with Saline -Foul Odor after Cleansing No -Bioengineered Tissue No -Bleeding Controlled with Pressure -Treatment Response Procedure Tolerated Well -Offloading No -Debridement - Open, 1st 20sq cm Yes #6 LLE CLUSTER -Time 14:24 10:25 -Correct Patient Yes Yes -Correct Side, Site, Position Yes Yes -Correct Procedure Yes Yes -Procedure Performed Yes Yes -Type of Procedure Debridement Debridement -Clinical Debridement Subcutaneous Subcutaneous -Tissue Removed Subcutaneous Subcutaneous -Post Debridement (cm) - Length 3.6 5.5 -Post Debridement (cm) - Width 3 5.4 -Post Debridement (cm) - Depth 0.1 0.1 -Total Square (Post) (cm) 10.8 29.70 -Area of Debridement (cm) - Length 3.6 5.5 -Area of Debridement (cm) - Width 3.0 5.4 -Total Square (Area) (cm) 10.80 29.70 -Tunneling No No -Undermining/Tunneling No No -Circular Undermining No No -Wound/Ulcer Outcome Not Healed Not Healed -Ulcer Cleansing Rinsed/ Rinsed/ Irrigated with Irrigated with Saline Saline -Foul Odor after Cleansing No No -Bioengineered Tissue No No -Bleeding Controlled with Pressure Pressure -Treatment Response Procedure Procedure Tolerated Well Tolerated Well -Offloading No No -Debridement - Subq, 1st 20sq cm Yes Yes -Debridement, SubQ, ea addt'l 20sq cm 1 or part thereof Pain Scale: 0-10 Numeric Is Patient Pain Free? Yes Yes WC - Nurse 3 - General Ulcer D/C NN Start: 12/02/23 11:55 Freq: Status: Active Protocol: Activity Type Activity Date Activity User E-sign Co-sign Detail Recorded Client Recorded Date Recorded By Document 12/02/23 11:56 CP [id number] 12/02/23 12:00 CP Edit Result 12/02/23 11:56 CP (1) [id number] 12/03/23 09:54 DS Document 12/03/23 09:50 DS [id number] 12/03/23 09:53 DS Document 12/10/23 12:03 JF 0000 12/10/23 12:04 JF Document 12/17/23 12:31 RB [id number] 12/17/23 12:33 RB (1) Left - Multi-Layered Wrap Application Multi-Layer Comp - => Left ($) => Right - Multi-Layered Wrap Application Multi-Layer Comp - => Right ($) => 12/02/23 12/03/23 12/10/23 11:56 09:50 12:03 Vital Signs Temperature (97.8 F-99.1 F) 96.8 F L Temperature Source Temporal Pulse Rate (60-100) 96 Pulse Location Monitor Respiratory Rate (12-18) 16 Respiratory rate source Observation Blood Pressure (90/60-120/80) 130/75 H Blood Pressure Mean (mm Hg) 93 Source Monitor Position Sitting Blood Pressure Location Left Arm Pain Scale: 0-10 Numeric Is Patient Pain Free? Yes Yes Yes Wound Care Center Nurse 3 #7 RIGHT LE -Ulcer Cleansing Soap and Water -Primary Dressing Applied Optilok 6.5x10 -Primary Dressing Covered/Secured with Dry Gauze & Roll Gauze -Optilok 6.5x10 1 #6 LLE CLUSTER -Ulcer Cleansing Soap and Water Rinsed/ Irrigated with Saline -Primary Dressing Applied Optilok 8x12 Aquacel AG 2x2 -Primary Dressing Covered/Secured with Dry Gauze & Dry Gauze Roll Gauze -Aquacel AG 2x2 1 -Optilok 6.5x10 1 -Optilok 8x12 0 B/L -Lotion applied to leg before compression wrap -Multi-Layered Wrap Application Multi-Layer Multi-Layer Comp - Bilat ($ Comp - Bilat ($ ) ) Treatment Response WC - Visit Discharge Discharge Condition Stable Stable Ambulatory Status Ambulatory, Ambulatory, Walker Walker Transportation Private Auto Private Auto Accompanied by Medication Reconcilliation completed & No provided to patient/care provider Clinical Summary of Care Provided No Notes: bandaid to right hallux 12/17/23 12:31 Vital Signs Temperature (97.8 F-99.1 F) 96.6 F L Temperature Source Temporal Pulse Rate (60-100) 92 Pulse Location Monitor Respiratory Rate (12-18) 18 Respiratory rate source Observation Blood Pressure (90/60-120/80) 151/79 H Blood Pressure Mean (mm Hg) 103 Source Monitor Position Semi-Fowlers Blood Pressure Location Left Arm Pain Scale: 0-10 Numeric Is Patient Pain Free? Yes Wound Care Center Nurse 3 #7 RIGHT LE -Ulcer Cleansing -Primary Dressing Applied -Primary Dressing Covered/Secured with -Optilok 6.5x10 #6 LLE CLUSTER -Ulcer Cleansing Wound Cleanser -Primary Dressing Applied Aquacel AG 2x2 -Primary Dressing Covered/Secured with Dry Gauze -Aquacel AG 2x2 1 -Optilok 6.5x10 -Optilok 8x12 B/L -Lotion applied to leg before Yes compression wrap -Multi-Layered Wrap Application Multi-Layer Comp - Bilat ($ ) Treatment Response Procedure Tolerated Well WC - Visit Discharge Discharge Condition Stable Ambulatory Status Wheelchair Transportation Private Auto Accompanied by Medication Reconcilliation completed & No provided to patient/care provider Clinical Summary of Care Provided Yes Notes: Assessment/Plan Assessment/Plan (1) Acute bullous dermatitis: CODE(S): L13.9 - Bullous disorder, unspecified PLAN: Patient was examined and evaluated. All findings were discussed with the patient. All questions were answered to the patient's satisfaction. Excisional debridement down to and including subcutaneous tissue of the left leg ulceration with a number 5 mm dermal curette without incident. Predebridement measurement was 5.0 x 5.0 x 0.1 cm. Postdebridement measurement was 5.5 x 5.4 x 0.1 cm. Excisional debridement down to and including subcutaneous tissue to the left foot third digit ulceration with a number 5 mm dermal curette without incident. Predebridement measurement was 1.0 x 1.0 x 0.1 cm. Postdebridement measurement is 1.3 x 1.3 x 0.1 cm. Excision debridement down to and including subcutaneous tissue of the right leg calf region ulceration with a number 5 mm dermal curette without incident. Predebridement measurement was 2.5 x 0.8 x 0.1 cm. Postdebridement measurement is 2.6 x 1.0 x 0.1 cm The bilateral lower extremities were wiped clean and patted dry. Xeroform was applied to all wounds followed by dry sterile dressing and double layer Tubigrip's. I educated the patient and his that they can remove all the dressing prior to home health care arrival for a shower or wash prior to dressing changes. They stated that they will just have home health care wash her . We will send referral to [facility] center closer to their home and the patient will continue to follow of weekly at the [facility] wound care center. Patient will be discharged from the wound care center and can reach out with any questions or concerns. . (2) Non-pressure chronic ulcer of other part of left lower leg with fat layer exposed: CODE(S): L97.822 - Non-pressure chronic ulcer of other part of left lower leg with fat layer exposed (3) Non-pressure chronic ulcer of other part of right lower leg with fat layer exposed: CODE(S): L97.812 - Non-pressure chronic ulcer of other part of right lower leg with fat layer exposed (4) Non-pressure chronic ulcer of other part of left foot with fat layer exposed: CODE(S): L97.522 - Non-pressure chronic ulcer of other part of left foot with fat layer exposed
== END 2023-12-30 16:33 | disposition home or self-care (01) ==
LOC: WC 09:15
PROVIDERS: PCP Family Medicine; Referring Provider Podiatrist Foot & Ankle Surgery; Visit Provider Podiatrist Foot & Ankle Surgery
DX: L97.822 Non-pressure chronic ulcer of other part of left lower leg with fat layer exposed (principal); L97.522 Non-pressure chronic ulcer of other part of left foot with fat layer exposed; L97.812 Non-pressure chronic ulcer of other part of right lower leg with fat layer exposed; G20.C Parkinsonism, unspecified; I87.2 Venous insufficiency (chronic) (peripheral); E66.9 Obesity, unspecified; S90.111A Contusion of right great toe without damage to nail, initial encounter; Z68.36 Body mass index [BMI] 36.0-36.9, adult; L13.9 Bullous disorder, unspecified
CPT/HCPCS: 11042; 11045; 29581; 97597; 99214; G0463